=== PATIENT | female | born 1970 | race Caucasian/White ===

== ENCOUNTER 2017-04-21 10:21 | Inpatient (IN) | payer OTHER ==
[~2017-04-21] VITALS: Ht 154.9 cm; Wt 79.8 kg
[~2017-04-21 10:21] MED LIST: BUPR-267 PO; CHOL100027 PO; DONE10TA12 PO; FLUO20CA35 PO; SYMIN/8045 INH; TRAZ1TAB52 PO; USTE90IN IM; VITAMIN B SQ
[2017-04-21] MEDS ORDERED: POTA40IN PO (12:43)
[2017-04-21] MEDS ORDERED: ACET325T96 PO (12:44)
[2017-04-21] MEDS ORDERED: PRED20TA PO (12:44)
[2017-04-21] MEDS ORDERED: DICY10CA55 PO (12:45)
[2017-04-21 12:46] VITALS: BP 160/91; PULSE 71; TEMP 36.7; O2SAT 95
[2017-04-21 12:48] VITALS: BMI 33.2
[2017-04-21 13:06] VITALS: BP 157/91
[2017-04-21] MEDS ORDERED: ACETAMINOPHEN 325 MG TAB PO PRN (13:45)
[2017-04-21 14:00] VITALS: Ht 154.9 cm; Wt 79.8 kg
[2017-04-21] MEDS ORDERED: OPTIRAY 320 IV PRN (14:15)
[2017-04-21 14:19] LABS: BASO % 0.3 %; BASO ABS # 0.03 K/uL (0-0.2); EOS % 0.2 %; HEMATOCRIT 39.9 % (37-47); IG% 0.6 %; LYMPH % 9.3 %; LYMPH ABS # 1.01 K/uL (1.2-3.4); MEAN CELL VOLUME 87.1 fL (80-100); MEAN CORPUSCULAR HEMOGLOBIN 29.3 pg (25-34); MEAN PLATELET VOLUME 9.3 fL (7.4-10.4); MONO % 2.2 %; NEUT % 87.4 %; PLATELET COUNT 266 K/uL (130-400); RED BLOOD COUNT 4.58 M/uL (4.2-5.4); WHITE BLOOD COUNT 10.84 K/uL (4.8-10.8)
[2017-04-21 14:21] LABS: COMPLETE YES; MEAN CORPUSCULAR HGB CONC 33.6 g/dl (32-36)
[2017-04-21] MEDS: FLUOXETINE HCL 20 MG CAP PO SCH ×2 (14:31→20:39)
[2017-04-21 14:48] LABS: BUN/CREATININE RATIO 5.1 (10-20); CALCIUM 7.7 mg/dl (8.5-10.1); MAGNESIUM 1.5 mg/dl (1.8-2.4); POTASSIUM 3.6 mmol/L (3.5-5.1)
[2017-04-21 14:51] LABS: ALB/GLOB RATIO 0.9 (0.9-2)
[2017-04-21] MEDS ORDERED: NURSING VERBAL MED ORDER ONE ×2 (15:45→20:45)
[2017-04-21] MEDS ORDERED: MoRPHine SULFATE 4 MG/ML 1 ML CARP ONE (15:54)
[2017-04-21] MEDS: MAGNESIUM SULFATE 1GM / D5W 1 GM in PREMIXED IN D5W 100 ML IV SCH ×3 (16:06→18:18)
--- NOTE | 2017-04-21 17:09 | Gastrointestinal Consultation ---
Gastrointestinal Consultation Date of Consultation: Apr 21, 2017 Attending Physician: DR Jay Billings Consulting Physician: DR Aries Sahu Reason for Consultation: Crohns exacerbation, pancreatitis History of Present Illness Patient is a 46 year old female with CC of abd pain HPI Reviewed [facility] EMR and noted DR Hopkins most recent note 02/26/17. Pt with ileocolonic crohns since age 19. She has subtotal colectomy with ileostomy and rectal stump. 10/31/2015 Ileoscopy normal. Has been on Sterlara by Derm since 10/2016. Had exacerabation of abd pain, and diarhea 02/2017. Prednisone 20 mg take for couple weeks stopped secondary to side effects. Stelara was increased to 90 mg every 12 weeks. Recently developed abd pain--- CT 04/10/17 minimal enteritis of few SB loops in LLQ but no pancreatitis mentioned, fatty liver, GB distension but no stones seen. LLQ ostomy, small fat containing peristomal hernia. U/S abdomen 04/11/17 gallstones. Pt admitted to [facility] 04/15 with abdominal pain and lipase 3823. Triglycerides 422 on 04/16 TSH normal. She had hypokalemia, hypomagnesemia. Lipase normalized as of 04/18/17 but up to 377 today. Stool was heme positive. HIDA scan negative for obstruction or cholecystitis. Abd series negative. MRCP stone in GB otherwise unremarkable. CXR negative. Prednisone 40 mg daily started 04/19. EGD done showed mild erosive gastritis bx and mild erosive esophagitis bx. CT a/p here hepatomegaly, fatty liver, LLQ ostomy o/w normal. Pt states she has LUQ pain predominantly and diarrhea no mold changer course at [facility]. She states no vomiting but is nauseated. She is seeing fresh blood in the ostomy. Labs here CBC WBC 10.8, CMP ok except gluc 121, mg 1.5. Family History non contributory Social History Smoking Status: Former Smoker Allergies Coded Allergies: No Known Allergies (Unverified , 04/21/17) Current Medications Home Meds and Scripts Medications Dose Route/Sig Max Daily Dose Days Date Category Bentyl (Dicyclomine Hcl) 10 Mg Cap 1 Cap PO TID 30 04/21/17 Reported Tylenol (Acetaminophen) 325 Mg Tab 650 Mg PO Q6 PRN 04/21/17 Reported Prednisone 20 Mg Tab 40 Mg PO 04/21/17 Reported Potassium Chloride 40 Meq/100 Ml Inj 40 Meq PO Q3H 04/21/17 Reported Symbicort 80/4.5 Inhaler (Budesonide/Formoterol Fumarate) Aero 2 Puffs INH BID 01/18/17 Reported Vitamin D 1000 Unit (Cholecalciferol) 1,000 Unit Cap 6,000 Inter.unit PO DAILY 12/18/16 Reported [vitamin b12 inj.] 1 Syr SQ MONTHLY 12/18/16 Reported Desyrel (Trazodone Hcl) 150 Mg Tab 150 Mg PO DAILY 12/18/16 Reported Stelara (Ustekinumab) 90 Mg/Ml Inj 90 Mg IM [id number] 12/18/16 Reported Aricept (Donepezil Hydrochloride) 10 Mg Tab 1 Tab PO AM 30 02/20/16 Reported Prozac (Fluoxetine HCl) 20 Mg Cap 20 Mg PO TID 02/20/16 Reported Bupropion Hcl Er (Bupropion Hcl) 150 Mg Tab 1 Tab PO BID 12/14/13 Reported Review of Systems ROS 10 systems negative except as above. Physical Exam Date Time Temp Pulse Resp B/P (MAP) Pulse Ox O2 Delivery O2 Flow Rate FiO2 04/21/17 16:00 Room Air 04/21/17 14:00 Room Air 04/21/17 13:06 157/91 (113) 04/21/17 12:46 36.7 71 18 160/91 (114) 95 Room Air General Appearance: WD/WN, no apparent distress Eyes: normal inspection ENT: hearing grossly normal, TMs normal Respiratory/Chest: normal breath sounds, no respiratory distress Cardiovascular: no edema, no murmur Abdomen: normal bowel sounds, soft, no organomegaly, + pertinent finding (LLQ ileostomy with yellow stool and no blood, no guarding nor rebound) Extremities: normal range of motion, non-tender Neurologic/Psych: cloth carrier II-XII nml as tested, normal mood/affect, oriented x 3 Laboratory Results Last 24 Hours Test 04/21/17 13:55 White Blood Count 10.84 K/uL Red Blood Count 4.58 M/uL Hemoglobin 13.4 g/dL Hematocrit 39.9 % Mean Corpuscular Volume 87.1 fL Mean Corpuscular Hemoglobin 29.3 pg Mean Corpuscular Hemoglobin Concent 33.6 g/dl Platelet Count 266 K/uL Mean Platelet Volume 9.3 fL Neutrophils (%) (Auto) 87.4 % Lymphocytes (%) (Auto) 9.3 % Monocytes (%) (Auto) 2.2 % Eosinophils (%) (Auto) 0.2 % Basophils (%) (Auto) 0.3 % Neutrophils # (Auto) 9.48 K/uL Lymphocytes # (Auto) 1.01 K/uL Monocytes # (Auto) 0.24 K/uL Eosinophils # (Auto) 0.02 K/uL Basophils # (Auto) 0.03 K/uL RDW Standard Deviation 47.2 fL RDW Coefficient of Variation 14.8 % Immature Granulocyte % (Auto) 0.6 % Immature Granulocyte # (Auto) 0.06 K/uL Erythrocyte Sedimentation Rate 21 mm/hr Sodium Level 141 mmol/L Potassium Level 3.6 mmol/L Chloride Level 106 mmol/L Carbon Dioxide Level 27 mmol/L Anion Gap 8.0 mmol/L Blood Urea Nitrogen 5 mg/dl Creatinine 1.00 mg/dl Est Creatinine Clear Calc Drug Dose 65.8 ml/min Estimated GFR () 77.2 Estimated GFR (Non- 66.6 BUN/Creatinine Ratio 5.1 Random Glucose 121 mg/dl Calcium Level 7.7 mg/dl Magnesium Level 1.5 mg/dl Total Bilirubin 0.3 mg/dl Aspartate Amino Transf (AST/SGOT) 19 U/L Alanine Aminotransferase (ALT/SGPT) 34 U/L Alkaline Phosphatase 90 U/L Total Protein 6.9 gm/dl Albumin 3.2 gm/dl Globulin 3.7 gm/dl Albumin/Globulin Ratio 0.9 Lipase 316 U/L Impression Impression and Plan: Abdominal pain--no evidence of pancreatitis or active IBD on CT--await stool for Cdiff. If that is negative then do ileoscopy Crohns--eventual ileoscopy--on Stelara as an outpt. IV steroids pending cdiff and ileoscopyCl Bright blood in ostomy--check C diff and if neg then ileoscopy Diarrhea--workup as above, quatitate stool output Elevated lipase on admit at [facility]--no evidence of pancreatis on CT 04/[address] 04/21/17
--- NOTE | 2017-04-21 17:41 | DIAGNOSTIC IMAGING REPORT ---
CT SCAN OF THE ABDOMEN AND PELVIS WITH IV CONTRAST CLINICAL HISTORY: Generalized abdominal pain. Reported history of Crohn's disease and pancreatitis. COMPARISON STUDY: No priors. TECHNIQUE: Following the IV administration of 115 cc of Optiray 320, CT scan of the abdomen and pelvis is performed from the lung bases to the proximal femora. Images are reviewed in the axial, sagittal, and coronal planes. IV contrast was administered without complication. Automated dose control exposure was utilized. CT DOSE: 465.97 mGy.cm FINDINGS: Lung bases: The heart is normal in size and without pericardial effusion. Emphysematous change is suggested at the lung bases. Bibasilar scarring versus atelectasis is noted. There is no airspace consolidation or pleural effusion. There is a tiny hiatal hernia. Liver: The contrast-enhanced liver is enlarged, measuring 21 cm in length. The liver demonstrates diffusely diminished attenuation consistent with hepatic steatosis. There is no intrahepatic biliary ductal dilatation. The hepatic veins and portal veins are patent. Gallbladder: Unremarkable. Spleen: Normal in size and attenuation. Pancreas: Unremarkable. Adrenal glands: Unremarkable. Kidneys: The contrast enhanced kidneys demonstrate mild cortical atrophy and are without hydronephrosis. The kidneys enhance symmetrically. A 3 mm nonobstructing calculus is seen in the left lower pole. Abdominal vasculature: The abdominal aorta is normal in course and caliber noting mild atherosclerotic calcification. Bowel: There are postoperative changes from subtotal colectomy with left lower quadrant ileostomy. No bowel obstruction is seen. A rectal stump is seen in the pelvis. No thick walled or hyperemic bowel loops are identified. There is a small duodenal diverticulum. Peritoneum: There is no intraperitoneal free air or abdominal ascites. Lymphadenopathy: None. Pelvic viscera: The bladder, uterus, and adnexa are normal as visualized. The perianal soft tissues are normal as imaged. Skeletal structures: The Skeletal structures are osteopenic. Mild thoracolumbar scoliosis is observed. No lytic or blastic lesions are seen. IMPRESSION: 1. There are no acute infectious or inflammatory findings in the abdomen or pelvis. 2. There are postoperative changes from subtotal colectomy with left lower quadrant ileostomy. No bowel obstruction is seen. 3. Hepatomegaly and hepatic steatosis. 4. Nonobstructing left renal calculus. 5. Additional findings as above. Electronically signed by: Pelon Carcamo M.D. 04/21/2017 5:40 PM Dictated Date/Time: 04/21/2017 5:35 PM
[2017-04-21] MEDS ORDERED: ONDANSETRON INJ 2 MG/ML 2 ML VIAL IV PRN (18:15)
--- NOTE | 2017-04-21 18:47 | History and Physical ---
History & Physical Date & Time of Service: Apr 21, 2017 at 18:30 Chief Complaint: Crohns Disease, Pancreatitis Primary Care Physician: Jose Raul Allen M.D. History of Present Illness Source: patient The patient is a 46-year-old female who presented to [facility] emergency department on April 15, and was admitted to the hospital for treatment of pancreatitis with a lipase elevated to over 3200. Enzymes were followed to normalcy, but the patient continued to complain of abdominal discomfort. The question at that point became whether her pain was related to pancreatitis or her underlying Crohn's disease. She was transferred to [facility] today for further assessment with her tin roofer Dr. Lott. Upon arrival to [facility], the patient continues to report generalized abdominal discomfort. She reports this pain is different than how she originally arrived with pain at [facility], but is unsure if it's related to her underlying Crohn's disease. She does have a colostomy in left lower quadrant, which appeared to function normally, and she has no complaints related to it's functioning. She has generalized myalgias and arthralgias, and in general doesn 't feel well. She had multiple studies performed at [facility], including a CT done prior to admission there which was normal. She had an EGD performed by gastroenterology there, and had a HIDA scan which showed gallstones but no signs of active cholecystitis. She had initially been nothing by mouth there, but her diet having gradually increasing clear liquids, and she did not notice a change in her abdominal discomfort. Past Medical/Surgical History Medical Problems: (1) Anxiety disorder Status: Chronic (2) Crohns disease Status: Chronic (3) Depressive disorder Status: Chronic (4) Hypothyroidism Status: Chronic (5) Psoriasis Status: Chronic Surgical Problems: (1) History of carpal tunnel release Status: Resolved (2) History of ileostomy Status: Resolved (3) History of thyroidectomy Status: Resolved Family History Noncontributory Social History Smoking Status: Former Smoker Smokeless Tobacco Use: No Alcohol Use: none Drug Use: none Immunizations History of Influenza Vaccine: Unknown History of Tetanus Vaccine?: Unknown History of Pneumococcal: Unknown History of Hepatitis B Vaccine: Unknown Multi-Drug Resistant Organisms History of MDRO: No Allergies Coded Allergies: No Known Allergies (Unverified , 04/21/17) Home Medications Scheduled Budesonide/Formoterol Fumarate (Symbicort 80/4.5 Inhaler), 2 PUFFS INH BID Bupropion Hcl (Bupropion Hcl Er), 1 TAB PO BID Cholecalciferol (Vitamin D 1000 Unit), 6,000 INTER.UNIT PO DAILY Dicyclomine Hcl (Bentyl), 1 CAP PO TID Donepezil Hydrochloride (Aricept), 1 TAB PO am Fluoxetine (Prozac), 20 MG PO TID Potassium Chloride (Potassium Chloride), 40 MEQ PO Q3H Trazodone Hcl (Desyrel), 150 MG PO DAILY Ustekinumab (Stelara), 90 MG IM [id number] [vitamin b12 inj.], 1 SYR SQ MONTHLY Scheduled PRN Acetaminophen Tab (Tylenol), 650 MG PO Q6 PRN for Pain Miscellaneous Medications Prednisone (Prednisone), 40 MG PO Review of Systems The patient denies chest pain, palpitations, shortness of breath, cough, sore throat, fevers, chills, sweats, weight change, vomiting, blood in urine or stool , dysuria, urinary frequency or urgency, lightheadedness, dizziness, headache, memory loss, rash, abnormal bruising or bleeding, imbalance, focal weakness, numbness or tingling in arms or legs, night sweats, or allergy symptoms. The review of systems is otherwise negative other than for that already noted above, and at least 10 systems have been reviewed. Physical Exam Vital Signs Date Time Temp Pulse Resp B/P (MAP) Pulse Ox O2 Delivery O2 Flow Rate FiO2 04/21/17 16:00 Room Air 04/21/17 14:00 Room Air 04/21/17 13:06 157/91 (113) 04/21/17 12:46 36.7 71 18 160/91 (114) 95 Room Air The patient is awake, well-developed and adequately nourished, alert and oriented 3, normocephalic and atraumatic, lying in bed and in no acute distress. HEENT--PERRL, EOMI, mucous membranes and oropharynx dry. Neck--supple, no JVD or bruits, thyroid normal, trachea midline, no adenopathy. Heart--normal S1 and S2, no extra beats, no murmurs, rubs or gallops. Lungs--clear bilaterally with good air movement, no respiratory distress, no accessory muscle use. Abdomen--normal bowel sounds and soft, generalized vague tenderness , nondistended, no hernias or masses, no organomegaly. Extremities--no cyanosis, clubbing or edema. There are good distal pulses b/l. Dermatologic--normal skin turgor, normal color, warm and dry, no abnormal lymph nodes, no rash. Neurologic--cranial nerves II through XII grossly intact, motor and sensory examination normal. Rheumatologic--normal range of motion, nontender, muscles and joints. Psychiatric--normal affect. Diagnostics Laboratory Results Results Past 24 Hours Test 04/21/17 13:55 Range/Units White Blood Count 10.84 4.8-10.8 K/uL Red Blood Count 4.58 4.2-5.4 M/uL Hemoglobin 13.4 12.0-16.0 g/dL Hematocrit 39.9 37-47 % Mean Corpuscular Volume 87.1 80-100 fL Mean Corpuscular Hemoglobin 29.3 25-34 pg Mean Corpuscular Hemoglobin Concent 33.6 32-36 g/dl Platelet Count 266 130-400 K/uL Mean Platelet Volume 9.3 7.4-10.4 fL Neutrophils (%) (Auto) 87.4 % Lymphocytes (%) (Auto) 9.3 % Monocytes (%) (Auto) 2.2 % Eosinophils (%) (Auto) 0.2 % Basophils (%) (Auto) 0.3 % Neutrophils # (Auto) 9.48 1.4-6.5 K/uL Lymphocytes # (Auto) 1.01 1.2-3.4 K/uL Monocytes # (Auto) 0.24 0.11-0.59 K/uL Eosinophils # (Auto) 0.02 0-0.5 K/uL Basophils # (Auto) 0.03 0-0.2 K/uL RDW Standard Deviation 47.2 36.4-46.3 fL RDW Coefficient of Variation 14.8 11.5-14.5 % Immature Granulocyte % (Auto) 0.6 % Immature Granulocyte # (Auto) 0.06 0.00-0.02 K/uL Erythrocyte Sedimentation Rate 21 0-21 mm/hr Sodium Level 141 136-145 mmol/L Potassium Level 3.6 3.5-5.1 mmol/L Chloride Level 106 98-107 mmol/L Carbon Dioxide Level 27 21-32 mmol/L Anion Gap 8.0 3-11 mmol/L Blood Urea Nitrogen 5 7-18 mg/dl Creatinine 1.00 0.60-1.20 mg/dl Est Creatinine Clear Calc Drug Dose 65.8 ml/min Estimated GFR () 77.2 Estimated GFR (Non- 66.6 BUN/Creatinine Ratio 5.1 10-20 Random Glucose 121 70-99 mg/dl Calcium Level 7.7 8.5-10.1 mg/dl Magnesium Level 1.5 1.8-2.4 mg/dl Total Bilirubin 0.3 0.2-1 mg/dl Aspartate Amino Transf (AST/SGOT) 19 15-37 U/L Alanine Aminotransferase (ALT/SGPT) 34 12-78 U/L Alkaline Phosphatase 90 45-117 U/L Total Protein 6.9 6.4-8.2 gm/dl Albumin 3.2 3.4-5.0 gm/dl Globulin 3.7 2.5-4.0 gm/dl Albumin/Globulin Ratio 0.9 0.9-2 Lipase 316 73-393 U/L Microbiology Results 04/21/17 C.difficile Toxin B Gene (PCR) - Final, Complete No C. difficile toxin B gene detected Impression Assessment and Plan Persistent abdominal pain/recent treatment for pancreatitis at [facility]/history of Crohn's disease--the patient is admitted to medical surgical floor. The last CT she had done was April 11. I therefore ordered a repeat CT of the abdomen and pelvis here with IV and oral contrast, which did not show any active pathology. Dr. Sahu from gastroenterology, has seen her menses For Dr. Lott today. We'll see if Dr. Lott is any further suggestions. Anxiety/depression-- continue trazodone, fluoxetine, donepezil, bupropion. Asthma--continue Symbicort. Level of Care Med/Surg Advanced Directives Existing Advance Directive: No Existing Living Will: No Existing Power of Licensed Mortgage Loan Officer: No Resuscitation Status FULL RESUSCITATION VTE Prophylaxis VTE Risk Assessment Done? Y/N: Yes Risk Level: Moderate Given or contraindicated: Contraindicated
[2017-04-21] MEDS: BUDESONIDE/FORMOTEROL FUMARATE 80/4.5 60 PUFFS/INHALER INH SCH (20:37)
[2017-04-21] MEDS: DONEPEZIL HCL 10 MG TAB PO SCH (20:38)
[2017-04-21] MEDS: DICYCLOMINE HCL 10 MG CAP PO SCH (20:38)
[2017-04-21] MEDS: BuPROPion SR 150 MG TABCR PO SCH (20:39)
[2017-04-21] MEDS: METHYLPREDNISOLONE 60 MG in SYRINGE 0 ML IV SCH (21:10)
[2017-04-21] MEDS: MoRPHine SULFATE 4 MG/ML 1 ML CARP IV PRN (22:31)
[2017-04-21] MEDS: TRAZODONE HCL 50 MG TAB PO SCH (22:32)
[2017-04-21 23:16] VITALS: BP 143/85; PULSE 68; TEMP 36.6; O2SAT 94
[2017-04-22] MEDS: MoRPHine SULFATE 4 MG/ML 1 ML CARP IV PRN ×6 (01:45→21:36)
[2017-04-22 05:40] LABS: COMPLETE YES; HEMATOCRIT 37.3 % (37-47); IG% 0.3 %; LYMPH % 9.6 %; LYMPH ABS # 0.91 K/uL (1.2-3.4); MEAN CELL VOLUME 85.4 fL (80-100); MEAN CORPUSCULAR HEMOGLOBIN 29.3 pg (25-34); MEAN CORPUSCULAR HGB CONC 34.3 g/dl (32-36); NEUT % 89.1 %; PLATELET COUNT 266 K/uL (130-400); RED BLOOD COUNT 4.37 M/uL (4.2-5.4); WHITE BLOOD COUNT 9.44 K/uL (4.8-10.8)
[2017-04-22 05:53] LABS: PARTIAL THROMBOPLASTIN RATIO 0.9; PROTHROMBIN TIME (PATIENT) 11.1 SECONDS (9.0-12.0)
[2017-04-22 06:16] LABS: ALT/SGPT 32 U/L (12-78); AST/SGOT 15 U/L (15-37); BLOOD UREA NITROGEN 5 mg/dl (7-18); BUN/CREATININE RATIO 5.1 (10-20); CALCIUM 7.4 mg/dl (8.5-10.1); CARBON DIOXIDE 32 mmol/L (21-32); CHLORIDE 103 mmol/L (98-107); GLUCOSE 123 mg/dl (70-99); MAGNESIUM 2.2 mg/dl (1.8-2.4); POTASSIUM 3.5 mmol/L (3.5-5.1); SODIUM 141 mmol/L (136-145)
[2017-04-22 06:18] LABS: ALB/GLOB RATIO 0.8 (0.9-2); ALKALINE PHOSPHATASE 83 U/L (45-117)
--- NOTE | 2017-04-22 07:08 | DIAGNOSTIC IMAGING REPORT ---
LEFT LOWER EXTREMITY VENOUS DOPPLER CLINICAL HISTORY: Left lower extremity pain. COMPARISON STUDY: No previous studies for comparison. TECHNIQUE: Sonography of the deep venous system of the left lower extremity was performed. Compression and augmentation were evaluated. FINDINGS: The left common femoral, superficial femoral and popliteal veins were compressible. Augmentation was normal. Flow was shown within the deep calf vessels. IMPRESSION: No evidence of deep venous thrombus within the left lower extremity. Electronically signed by: Tone Siegel M.D. 04/22/2017 7:07 AM Dictated Date/Time: 04/22/2017 7:07 AM
[2017-04-22 07:23] VITALS: BP 121/77; PULSE 80; TEMP 36.6; O2SAT 92
[2017-04-22] MEDS: CHOLECALCIFEROL 1000 INTER.UNIT TAB PO SCH (07:44)
[2017-04-22] MEDS: BuPROPion SR 150 MG TABCR PO SCH ×2 (07:44→21:25)
[2017-04-22] MEDS: FLUOXETINE HCL 20 MG CAP PO SCH ×3 (07:44→21:26)
[2017-04-22] MEDS: BUDESONIDE/FORMOTEROL FUMARATE 80/4.5 60 PUFFS/INHALER INH SCH ×2 (07:44→21:24)
[2017-04-22] MEDS: DICYCLOMINE HCL 10 MG CAP PO SCH ×3 (07:44→21:25)
[2017-04-22] MEDS: METHYLPREDNISOLONE 60 MG in SYRINGE 0 ML IV SCH (08:14)
--- NOTE | 2017-04-22 09:23 | Hospitalist Progress Note ---
Hospitalist Progress Note Date of Service Apr 22, 2017. (Krystle Guerrero PA-C) Subjective Pt evaluation today including: conversation w/ patient, physical exam, chart review, lab review, review of studies Pain: Epigastric abdominal PO Intake: NPO Voiding: no voiding problems The patient was seen and examined this morning. Pt reports doing ok, she is slightly better than yesterday but still is having epigastric abdominal pain, and notes that it radiates to her back/around the left side. She has been NPO since midnight in anticipation of ilioscopy today by Dr. Lott. She denies fevers, chills, sweats, chest pain, sob, n/v/d/c. Ostomy outs have been yellow/ bile colored. She denies any blood streaking in stools or dark tarry outs. Additional Comments: ROS: 6 point ROS reviewed and otherwise negative unless noted in HPI. (Krystle Guerrero PA-C) Objective Vital Signs Date Time Temp Pulse Resp B/P (MAP) Pulse Ox O2 Delivery O2 Flow Rate FiO2 04/22/17 07:23 36.6 80 16 121/77 (92) 92 Room Air 04/22/17 00:00 Room Air 04/21/17 23:16 36.6 68 18 143/85 (104) 94 Room Air 04/21/17 16:00 Room Air 04/21/17 14:00 Room Air 04/21/17 13:06 157/91 (113) 04/21/17 12:46 36.7 71 18 160/91 (114) 95 Room Air (Krystle Guerrero PA-C) Physical Exam General Appearance: WD/WN, no apparent distress, + obese Eyes: PERRL, EOMI ENT: hearing grossly normal, pharynx normal Neck: supple, no JVD Respiratory/Chest: lungs clear, no respiratory distress, no accessory muscle use Cardiovascular: regular rate, rhythm, no murmur Abdomen: normal bowel sounds, soft, no organomegaly, + pertinent finding ( tender to palpation in the epigastric region, Ostomy in LLQ with yellow/bile outs) Extremities: non-tender, no pedal edema, no calf tenderness Neurologic/Psychiatric: no motor/sensory deficits, alert, oriented x 3 Skin: normal color, warm/dry (Krystle Guerrero PA-C) Laboratory Results Last 24 Hours Test 04/21/17 13:55 04/22/17 05:28 White Blood Count 10.84 K/uL 9.44 K/uL Red Blood Count 4.58 M/uL 4.37 M/uL Hemoglobin 13.4 g/dL 12.8 g/dL Hematocrit 39.9 % 37.3 % Mean Corpuscular Volume 87.1 fL 85.4 fL Mean Corpuscular Hemoglobin 29.3 pg 29.3 pg Mean Corpuscular Hemoglobin Concent 33.6 g/dl 34.3 g/dl Platelet Count 266 K/uL 266 K/uL Mean Platelet Volume 9.3 fL 9.0 fL Neutrophils (%) (Auto) 87.4 % 89.1 % Lymphocytes (%) (Auto) 9.3 % 9.6 % Monocytes (%) (Auto) 2.2 % 1.0 % Eosinophils (%) (Auto) 0.2 % 0.0 % Basophils (%) (Auto) 0.3 % 0.0 % Neutrophils # (Auto) 9.48 K/uL 8.41 K/uL Lymphocytes # (Auto) 1.01 K/uL 0.91 K/uL Monocytes # (Auto) 0.24 K/uL 0.09 K/uL Eosinophils # (Auto) 0.02 K/uL 0.00 K/uL Basophils # (Auto) 0.03 K/uL 0.00 K/uL RDW Standard Deviation 47.2 fL 45.2 fL RDW Coefficient of Variation 14.8 % 14.5 % Immature Granulocyte % (Auto) 0.6 % 0.3 % Immature Granulocyte # (Auto) 0.06 K/uL 0.03 K/uL Erythrocyte Sedimentation Rate 21 mm/hr Sodium Level 141 mmol/L 141 mmol/L Potassium Level 3.6 mmol/L 3.5 mmol/L Chloride Level 106 mmol/L 103 mmol/L Carbon Dioxide Level 27 mmol/L 32 mmol/L Anion Gap 8.0 mmol/L 6.0 mmol/L Blood Urea Nitrogen 5 mg/dl 5 mg/dl Creatinine 1.00 mg/dl 1.00 mg/dl Est Creatinine Clear Calc Drug Dose 65.8 ml/min 65.8 ml/min Estimated GFR () 77.2 77.2 Estimated GFR (Non- 66.6 66.6 BUN/Creatinine Ratio 5.1 5.1 Random Glucose 121 mg/dl 123 mg/dl Calcium Level 7.7 mg/dl 7.4 mg/dl Magnesium Level 1.5 mg/dl 2.2 mg/dl Total Bilirubin 0.3 mg/dl 0.3 mg/dl Aspartate Amino Transf (AST/SGOT) 19 U/L 15 U/L Alanine Aminotransferase (ALT/SGPT) 34 U/L 32 U/L Alkaline Phosphatase 90 U/L 83 U/L Total Protein 6.9 gm/dl 6.3 gm/dl Albumin 3.2 gm/dl 2.8 gm/dl Globulin 3.7 gm/dl 3.5 gm/dl Albumin/Globulin Ratio 0.9 0.8 Lipase 316 U/L 377 U/L Prothrombin Time 11.1 SECONDS Prothromb Time International Ratio 1.0 Activated Partial Thromboplast Time 24.3 SECONDS Partial Thromboplastin Ratio 0.9 Direct Bilirubin < 0.1 mg/dl (Krystle Guerrero PA-C) Assessment and Plan Persistent abdominal pain/recent treatment for pancreatitis at [facility]/history of Crohn's disease- - CT abd/pelvis repeated here: Last was done on 03/11/17 IMPRESSION: 1. There are no acute infectious or inflammatory findings in the abdomen or pelvis. 2. There are postoperative changes from subtotal colectomy with left lower quadrant ileostomy. No bowel obstruction is seen. 3. Hepatomegaly and hepatic steatosis. 4. Nonobstructing left renal calculus. - GI on board - pt scheduled for ilioscopy today by Dr. Lott. Will allow her to have clears after procedure and see how she does. - Pain control with morphin 2-4 mg Q4H and toradol. Avoid oral narcotics with hx of Chrons - Negative c. diff and if negative then plan on ileoscopy - Follow lipase Crohns Disease - Uses Stellara 90 U as oupt, last dose was beginning of March Anxiety/depression - continue trazodone, fluoxetine, donepezil, bupropion. Asthma -continue Symbicort. DVT ppx: teds, scds, CODE STATUS: FULL CODE Disposition: From home, discharge likely within 1-2 days. (Krystle Guerrero PA-C) ANKITA Physician Supervision Note: I interviewed and examined the patient. Discussed with Krystle Guerrero PAC and agree with findings and plan as documented in the note. Any exceptions or clarifications are listed here: None Patient still was some abdominal symptoms, did have EGD today, mild elevation of lipase, we'll of unclear as overnight discussed with GI for further recommendations. Vital signs stable Abdomen soft but tender especially in the epigastrium Cardiac is regular lungs are clear Symptom control for abdominal pain, await final EGD report continue PPI Bandar Anne (Bandar Anne M.D.)
[2017-04-22] MEDS ORDERED: MIDAZOLAM HCL 1 MG/ML 2ML VIAL ONE (15:07)
[2017-04-22] MEDS ORDERED: LIDOCAINE HCL 2% 2 ML VIAL (20MG/ML) ONE (15:07)
[2017-04-22] MEDS ORDERED: PROPOFOL IV EMULSION 10 MG/ML 20 ML VIAL IV ONE (15:07)
--- NOTE | 2017-04-22 15:08 | Endo History and Physical ---
History & Physical Date of Service: Apr 22, 2017. Chief Complaint: abd pain, Crohn's Referring Physician: Dr Sahu History of Present Illness For ileoscopy Past Medical History Anxiety, Thyroid Disease, Depression Past Surgical History Hx Abdominal Surgery: Yes (ileostomy x 2) Hx Post-Op Nausea and Vomiting: No Hx Cancer Surgery: No Hx Thoracic Surgery: No Hx Orthopedic: No Hx Urinary Tract Surgery: No Social History Smoking Status: Unknown if Ever Smoked Smokeless Tobacco Use: No Hx Substance Use: No Hx Alcohol Use: No Allergies Coded Allergies: No Known Allergies (Unverified , 04/22/17) Current Medications Reported Home Medications Medications Dose Route/Sig Max Daily Dose Days Date Category Bentyl (Dicyclomine Hcl) 10 Mg Cap 1 Cap PO TID 30 04/21/17 Reported Tylenol (Acetaminophen) 325 Mg Tab 650 Mg PO Q6 PRN 04/21/17 Reported Prednisone 20 Mg Tab 40 Mg PO 04/21/17 Reported Potassium Chloride 40 Meq/100 Ml Inj 40 Meq PO Q3H 04/21/17 Reported Symbicort 80/4.5 Inhaler (Budesonide/Formoterol Fumarate) Aero 2 Puffs INH BID 01/18/17 Reported Vitamin D 1000 Unit (Cholecalciferol) 1,000 Unit Cap 6,000 Inter.unit PO DAILY 12/18/16 Reported [vitamin b12 inj.] 1 Syr SQ MONTHLY 12/18/16 Reported Desyrel (Trazodone Hcl) 150 Mg Tab 150 Mg PO DAILY 12/18/16 Reported Stelara (Ustekinumab) 90 Mg/Ml Inj 90 Mg IM [id number] 12/18/16 Reported Aricept (Donepezil Hydrochloride) 10 Mg Tab 1 Tab PO AM 30 02/20/16 Reported Prozac (Fluoxetine HCl) 20 Mg Cap 20 Mg PO TID 02/20/16 Reported Bupropion Hcl Er (Bupropion Hcl) 150 Mg Tab 1 Tab PO BID 12/14/13 Reported Vital Signs Weight (Kilograms): 79.800 Height (Feet): 5 Height (Inches): 1.00 Date Time Temp Pulse Resp B/P (MAP) Pulse Ox O2 Delivery O2 Flow Rate FiO2 04/22/17 14:49 36.8 68 18 128/81 (97) 94 Room Air 04/22/17 08:00 Room Air 04/22/17 07:23 36.6 80 16 121/77 (92) 92 Room Air 04/22/17 00:00 Room Air 04/21/17 23:16 36.6 68 18 143/85 (104) 94 Room Air 04/21/17 16:00 Room Air Physical Exam General Appearance: + obese Respiratory/Chest: Respiratory effort: no dyspnea Cardiovascular: Heart Auscultation: RRR Abdomen: Bowel Sounds: pertinent finding (Ileostomy) Assessment and Plan abd pain for ileoscopy
--- NOTE | 2017-04-22 15:22 | Discharge Instructions ---
Endoscopy Patient Instructions Date / Procedure(s) Performed Apr 22, 2017. Other (ileoscopy) Allergy Information Coded Allergies: No Known Allergies (Unverified , 04/22/17) Discharge Date / Findings Apr 22, 2017. Normal ileoscopy to 30 cm Medication Instructions Restart Stopped Medication(s): resume meds Current Inpatient Medications Medications (Trade) Dose Ordered Sig/Sd Route Start Time Stop Time Status Last Admin Dose Admin Acetaminophen (Tylenol Tab) 650 mg Q6 PRN PO 04/21/17 13:45 05/21/17 13:44 Budesonide/ Formoterol Fumarate (Symbicort 80/ 4.5 Inh) 2 puffs BID INH 04/21/17 21:00 05/21/17 20:59 04/21/17 20:37 2 PUFFS Bupropion HCl (Wellbutrin-Sr Tab) 150 mg BID PO 04/21/17 21:00 05/21/17 20:59 04/21/17 20:39 150 MG Fluoxetine HCl (Prozac Cap) 20 mg TID PO 04/21/17 14:00 05/21/17 13:59 04/21/17 20:39 20 MG Ioversol (Optiray 320) 125 ml UD PRN IV 04/21/17 14:15 04/25/17 14:14 Morphine Sulfate (MoRPHine SULFATE INJ) 2 mg Q2H PRN IV 04/21/17 16:15 05/05/17 16:14 Morphine Sulfate (MoRPHine SULFATE INJ) 4 mg Q2H PRN IV 04/21/17 16:15 05/05/17 16:14 04/22/17 13:16 4 MG Ondansetron HCl (Zofran Inj) 4 mg Q6H PRN IV 04/21/17 18:15 05/21/17 18:14 04/21/17 18:22 4 MG Ketorolac Tromethamine (Toradol Inj) 30 mg Q6H PRN IV 04/21/17 18:15 04/26/17 18:14 Cholecalciferol (Vitamin D Tab) 6,000 inter.unit DAILY PO 04/22/17 09:00 05/22/17 08:59 Dicyclomine HCl (Bentyl Cap) 10 mg TID PO 04/21/17 21:00 05/21/17 20:59 7/9/17 20:38 10 MG Donepezil HCl (Aricept Tab) 10 mg HS PO 04/21/17 21:00 05/21/17 20:59 04/21/17 20:38 10 MG Trazodone HCl (Desyrel Tab) 150 mg HS PO 04/21/17 21:00 05/21/17 20:59 04/21/17 22:32 150 MG Methylprednisolone Sodium Succinate 60 mg/Syringe 0.96 ml @ 1.5 mls/min DAILY IV 04/21/17 21:00 05/21/17 20:59 04/22/17 08:14 1.5 MLS/MIN Provider Instructions Activity Restrictions - No exercising or heavy lifting for 24 hours. - Do not drink alcohol the day of the procedure. - Do not drive a car or operate machinery until the day after the procedure. - Do not make any important decisions or sign important papers in 24 hours after the procedure. Following Day: - Return to full activity which may include returning to work/school. Diet Start your diet with liquids and light foods (jello, soup, juice, toast). Then eat your usual diet if not nauseated. Treatment For Common After Affects For mild abdominal pain, bloating, or excessive gas: - Rest - Eat lightly - Lie on right side Follow-Up Information Follow-up with as scheduled Anesthesia Information What You Should Know You have had a procedure that required some medicine to reduce anxiety and discomfort. This treatment is called moderate sedation. After receiving the treatment, you may be sleepy, but you will be able to breathe on your own. The effects of the treatment may last for several hours. Follow these instructions along with Activity/Diet recommendations noted above: * Do NOT do anything where dizziness or clumsiness would be dangerous. * Rest quietly at home today, then you can be up and about tomorrow. * Have a responsible person stay with you the rest of today. * You may have had an I.V. today. If so, you may take the dressing off later today. Recommendations Call your doctor if: * Trouble breathing * Continuous vomiting for more than 24 hours * Temperature above 101 degrees * Severe abdominal pain or bloating * Pain not relieved by pain medicine ordered * There is increased drainage or redness from any incision * A large amount of rectal bleeding greater than 2-3 tablespoons. (If you had a polyp/s removed or have hemorrhoids, a small amount of blood - from the rectum is to be expected.) * You have any unanswered questions or concerns. IN THE EVENT OF A SERIOUS EMERGENCY, GO TO THE NEAREST EMERGENCY ROOM Your discharge instructions were prepared by provider Percy Lott. Patient Instructions Signature Page Yu Isidro Patient (or Guardian) Signature/Date: I have read and understand the instructions given to me by my caregivers. Caregiver/RN/Doctor Signature/Date: The above-named patient and/or guardian has received patient instructions on this date. + Original Patient Signature Page (only) stays with chart. Please make copy for patient.
--- NOTE | 2017-04-22 15:30 | GI REPORT ---
Procedure Date: 04/22/2017 3:09 PM Procedure: Colonoscopy Indications: Generalized abdominal pain Medicines: Midazolam 2 mg IV, Propofol total dose 70 mg IV, Lidocaine 40 mg IV Complications: No immediate complications. Estimated Blood Loss: Estimated blood loss: none. Procedure: Pre-Anesthesia Assessment: - Prior to the procedure, a History and Physical was performed, and patient medications, allergies and sensitivities were reviewed. The patient's tolerance of previous anesthesia was reviewed. - The risks and benefits of the procedure and the sedation options and risks were discussed with the patient. All questions were answered and informed consent was obtained. After I obtained informed consent, the scope was passed under direct vision. Throughout the procedure, the patient's blood pressure, pulse, and oxygen saturations were monitored continuously. The scope was introduced through the ileostomy and advanced to the surgical stoma. The colonoscopy was performed without difficulty. The patient tolerated the procedure well. The quality of the bowel preparation was good. Findings: The osbaldo-terminal ileum appeared normal to 30 cm. Impression: - The examined portion of the ileum was normal. - No specimens collected. Recommendation: - Return patient to [facility] for [facility] care. - Perform an upper GI endoscopy tomorrow. Percy Lott M.D. Percy Lott MD 04/22/2017 3:29:39 PM This report has been signed electronically. Note Initiated On: 04/22/2017 3:09 PM I attest to the content of the Intraoperative Record and orders documented therein, exceptions below
--- NOTE | 2017-04-22 15:54 | Anesthesiology Progress Note ---
Anesthesia Post Op Note Date & Time Apr 22, 2017 at 15:53 Vital Signs Pain Intensity: 0 Vital Signs Past 12 Hours Date Time Temp Pulse Resp B/P (MAP) Pulse Ox O2 Delivery O2 Flow Rate FiO2 04/22/17 15:41 71 20 122/77 (92) 97 Room Air 04/22/17 15:25 71 18 117/72 (87) 94 Room Air 04/22/17 14:49 36.8 68 18 128/81 (97) 94 Room Air 04/22/17 08:00 Room Air 04/22/17 07:23 36.6 80 16 121/77 (92) 92 Room Air Notes Mental Status: alert / awake / arousable, participated in evaluation Pt Amnestic to Procedure: Yes Nausea / Vomiting: adequately controlled Pain: adequately controlled Airway Patency, RR, SpO2: stable & adequate BP & HR: stable & adequate Hydration State: stable & adequate Anesthetic Complications: no major complications apparent
[2017-04-22 16:00] VITALS: O2SAT 94
[2017-04-22 16:14] VITALS: BP 136/80; PULSE 72; TEMP 36.6; O2SAT 94
--- NOTE | 2017-04-22 17:24 | Gastroenterology Progress Note ---
Progress Note Date of Service: Apr 22, 2017 Subjective Pt evaluation today including: conversation w/ patient, chart review Medications Current Inpatient Medications Medications (Trade) Dose Ordered Sig/Sd Route Start Time Stop Time Status Last Admin Dose Admin Acetaminophen (Tylenol Tab) 650 mg Q6 PRN PO 04/21/17 13:45 05/21/17 13:44 Budesonide/ Formoterol Fumarate (Symbicort 80/ 4.5 Inh) 2 puffs BID INH 04/21/17 21:00 05/21/17 20:59 04/21/17 20:37 2 PUFFS Bupropion HCl (Wellbutrin-Sr Tab) 150 mg BID PO 04/21/17 21:00 05/21/17 20:59 04/21/17 20:39 150 MG Fluoxetine HCl (Prozac Cap) 20 mg TID PO 04/21/17 14:00 05/21/17 13:59 04/21/17 20:39 20 MG Ioversol (Optiray 320) 125 ml UD PRN IV 04/21/17 14:15 04/25/17 14:14 Morphine Sulfate (MoRPHine SULFATE INJ) 2 mg Q2H PRN IV 04/21/17 16:15 05/05/17 16:14 Morphine Sulfate (MoRPHine SULFATE INJ) 4 mg Q2H PRN IV 04/21/17 16:15 05/05/17 16:14 04/22/17 13:16 4 MG Ondansetron HCl (Zofran Inj) 4 mg Q6H PRN IV 04/21/17 18:15 05/21/17 18:14 04/21/17 18:22 4 MG Ketorolac Tromethamine (Toradol Inj) 30 mg Q6H PRN IV 04/21/17 18:15 04/26/17 18:14 Cholecalciferol (Vitamin D Tab) 6,000 inter.unit DAILY PO 04/22/17 09:00 05/22/17 08:59 Dicyclomine HCl (Bentyl Cap) 10 mg TID PO 04/21/17 21:00 05/21/17 20:59 04/21/17 20:38 10 MG Donepezil HCl (Aricept Tab) 10 mg HS PO 04/21/17 21:00 05/21/17 20:59 04/21/17 20:38 10 MG Trazodone HCl (Desyrel Tab) 150 mg HS PO 04/21/17 21:00 05/21/17 20:59 04/21/17 22:32 150 MG Pantoprazole Sodium 40 mg/ Syringe 10 ml @ 5 mls/min DAILY@09,21 IV 04/22/17 21:00 05/22/17 20:59 Objective Vital Signs Date Time Temp Pulse Resp B/P (MAP) Pulse Ox O2 Delivery O2 Flow Rate FiO2 04/22/17 16:14 36.6 72 18 136/80 (98) 94 Room Air 04/22/17 16:00 94 Room Air 04/22/17 15:41 71 20 122/77 (92) 97 Room Air 04/22/17 15:25 71 18 117/72 (87) 94 Room Air 04/22/17 14:49 36.8 68 18 128/81 (97) 94 Room Air 04/22/17 08:00 Room Air 04/22/17 07:23 36.6 80 16 121/77 (92) 92 Room Air 04/22/17 00:00 Room Air 04/21/17 23:16 36.6 68 18 143/85 (104) 94 Room Air Laboratory Results Last 24 Hours Test 04/22/17 05:28 White Blood Count 9.44 K/uL Red Blood Count 4.37 M/uL Hemoglobin 12.8 g/dL Hematocrit 37.3 % Mean Corpuscular Volume 85.4 fL Mean Corpuscular Hemoglobin 29.3 pg Mean Corpuscular Hemoglobin Concent 34.3 g/dl Platelet Count 266 K/uL Mean Platelet Volume 9.0 fL Neutrophils (%) (Auto) 89.1 % Lymphocytes (%) (Auto) 9.6 % Monocytes (%) (Auto) 1.0 % Eosinophils (%) (Auto) 0.0 % Basophils (%) (Auto) 0.0 % Neutrophils # (Auto) 8.41 K/uL Lymphocytes # (Auto) 0.91 K/uL Monocytes # (Auto) 0.09 K/uL Eosinophils # (Auto) 0.00 K/uL Basophils # (Auto) 0.00 K/uL RDW Standard Deviation 45.2 fL RDW Coefficient of Variation 14.5 % Immature Granulocyte % (Auto) 0.3 % Immature Granulocyte # (Auto) 0.03 K/uL Prothrombin Time 11.1 SECONDS Prothromb Time International Ratio 1.0 Activated Partial Thromboplast Time 24.3 SECONDS Partial Thromboplastin Ratio 0.9 Sodium Level 141 mmol/L Potassium Level 3.5 mmol/L Chloride Level 103 mmol/L Carbon Dioxide Level 32 mmol/L Anion Gap 6.0 mmol/L Blood Urea Nitrogen 5 mg/dl Creatinine 1.00 mg/dl Est Creatinine Clear Calc Drug Dose 65.8 ml/min Estimated GFR () 77.2 Estimated GFR (Non- 66.6 BUN/Creatinine Ratio 5.1 Random Glucose 123 mg/dl Calcium Level 7.4 mg/dl Magnesium Level 2.2 mg/dl Total Bilirubin 0.3 mg/dl Direct Bilirubin < 0.1 mg/dl Aspartate Amino Transf (AST/SGOT) 15 U/L Alanine Aminotransferase (ALT/SGPT) 32 U/L Alkaline Phosphatase 83 U/L Total Protein 6.3 gm/dl Albumin 2.8 gm/dl Globulin 3.5 gm/dl Albumin/Globulin Ratio 0.8 Lipase 377 U/L Assessment and Plan Ileoscopy to 30 cm is normal. No sign of active Crohn's disease. Steroids stopped. Will discuss with Dr. Luna tomorrow to consider EUS+/- ERCP given gallstone and chemical evidence of pancreatitis.
[2017-04-22 19:34] VITALS: BP 130/79; PULSE 74; TEMP 36.1; O2SAT 95
[2017-04-22] MEDS: DONEPEZIL HCL 10 MG TAB PO SCH (21:25)
[2017-04-22] MEDS: TRAZODONE HCL 50 MG TAB PO SCH (21:26)
[2017-04-22] MEDS: PANTOprazole INJ 40 MG in SYRINGE 0 ML IV SCH (21:36)
[2017-04-22 23:24] VITALS: BP 125/77; PULSE 74; TEMP 36.7; O2SAT 96
[2017-04-23] MEDS: MoRPHine SULFATE 4 MG/ML 1 ML CARP IV PRN ×2 (03:25→06:04)
[2017-04-23 06:02] LABS: BASO % 0.1 %; BASO ABS # 0.01 K/uL (0-0.2); COMPLETE YES; EOS % 0.2 %; HEMATOCRIT 38.3 % (37-47); IG% 0.3 %; LYMPH % 27.8 %; LYMPH ABS # 2.68 K/uL (1.2-3.4); MEAN CELL VOLUME 87.6 fL (80-100); MEAN CORPUSCULAR HEMOGLOBIN 28.1 pg (25-34); MEAN CORPUSCULAR HGB CONC 32.1 g/dl (32-36); MEAN PLATELET VOLUME 8.9 fL (7.4-10.4); MONO % 5.9 %; NEUT % 65.7 %; PLATELET COUNT 265 K/uL (130-400); RED BLOOD COUNT 4.37 M/uL (4.2-5.4); WHITE BLOOD COUNT 9.64 K/uL (4.8-10.8)
[2017-04-23 06:18] LABS: INR 1.1 (0.9-1.1); PARTIAL THROMBOPLASTIN RATIO 0.9; PROTHROMBIN TIME (PATIENT) 11.7 SECONDS (9.0-12.0)
[2017-04-23 06:45] LABS: ALKALINE PHOSPHATASE 73 U/L (45-117); ALT/SGPT 30 U/L (12-78); AST/SGOT 14 U/L (15-37); BLOOD UREA NITROGEN 11 mg/dl (7-18); BUN/CREATININE RATIO 9.8 (10-20); CALCIUM 7.9 mg/dl (8.5-10.1); CARBON DIOXIDE 32 mmol/L (21-32); CHLORIDE 102 mmol/L (98-107); GLUCOSE 78 mg/dl (70-99); MAGNESIUM 2.2 mg/dl (1.8-2.4); SODIUM 140 mmol/L (136-145)
[2017-04-23 07:40] VITALS: BP 115/76; PULSE 76; TEMP 36.4; O2SAT 92
[2017-04-23] MEDS: POTASSIUM CHLR 10 MEQ / WTR 10 MEQ in PREMIXED WATER 100 ML IV SCH ×3 (08:16→10:35)
[2017-04-23] MEDS: BUDESONIDE/FORMOTEROL FUMARATE 80/4.5 60 PUFFS/INHALER INH SCH ×2 (08:16→21:04)
[2017-04-23] MEDS: PANTOprazole INJ 40 MG in SYRINGE 0 ML IV SCH ×2 (08:17→21:03)
[2017-04-23] MEDS: POTASSIUM CHLORIDE 20 MEQ TABCR PO SCH ×2 (08:17→21:05)
[2017-04-23] MEDS: FLUOXETINE HCL 20 MG CAP PO SCH ×3 (08:18→21:06)
[2017-04-23] MEDS: CHOLECALCIFEROL 1000 INTER.UNIT TAB PO SCH (08:18)
[2017-04-23] MEDS: BuPROPion SR 150 MG TABCR PO SCH ×2 (08:19→21:04)
[2017-04-23] MEDS: DICYCLOMINE HCL 10 MG CAP PO SCH ×3 (08:19→21:05)
--- NOTE | 2017-04-23 08:59 | Hospitalist Progress Note ---
Hospitalist Progress Note Date of Service Apr 23, 2017. (Krystle Guerrero PA-C) Subjective Pt evaluation today including: conversation w/ patient, physical exam, chart review, lab review, review of studies Pain: Epigastric abdominal pain PO Intake: Clears Voiding: no voiding problems The patient was seen and examined this morning. Pt reports her abdominal pain is about the same today compared to yesterday. She admits to some nausea, but has not required antiemetics. She is tolerating a clear liquid diet without much difficulty. She denies fevers sweats or chills. She has been urinating without difficulty. Colostomy has liquid outs currently. Additional Comments: ROS: 6 point ROS reviewed and otherwise negative (Krystle Guerrero PA-C) Objective Vital Signs Date Time Temp Pulse Resp B/P (MAP) Pulse Ox O2 Delivery O2 Flow Rate FiO2 04/23/17 07:57 Room Air 04/23/17 07:40 36.4 76 16 115/76 (89) 92 Room Air 04/23/17 00:10 Room Air 04/22/17 23:24 36.7 74 18 125/77 (93) 96 Room Air 04/22/17 19:34 36.1 74 18 130/79 (96) 95 Room Air 04/22/17 16:14 36.6 72 18 136/80 (98) 94 Room Air 04/22/17 16:00 94 Room Air 04/22/17 15:41 71 20 122/77 (92) 97 Room Air 04/22/17 15:25 71 18 117/72 (87) 94 Room Air 04/22/17 14:49 36.8 68 18 128/81 (97) 94 Room Air (Krystle Guerrero PA-C) Physical Exam Notes: General Appearance: WD/WN, no apparent distress, + obese Eyes: PERRL, EOMI ENT: hearing grossly normal, pharynx normal Neck: supple, no JVD Respiratory/Chest: lungs clear, no respiratory distress, no accessory muscle use Cardiovascular: regular rate, rhythm, no murmur Abdomen: normal bowel sounds, soft, no organomegaly, + pertinent finding ( tender to palpation in the epigastric region, Ostomy in LLQ with dark liquid outs) Extremities: non-tender, no pedal edema, no calf tenderness Neurologic/Psychiatric: no motor/sensory deficits, alert, oriented x 3 Skin: normal color, warm/dry (Krystle Guerrero PA-C) Laboratory Results Last 24 Hours Test 04/23/17 05:35 White Blood Count 9.64 K/uL Red Blood Count 4.37 M/uL Hemoglobin 12.3 g/dL Hematocrit 38.3 % Mean Corpuscular Volume 87.6 fL Mean Corpuscular Hemoglobin 28.1 pg Mean Corpuscular Hemoglobin Concent 32.1 g/dl Platelet Count 265 K/uL Mean Platelet Volume 8.9 fL Neutrophils (%) (Auto) 65.7 % Lymphocytes (%) (Auto) 27.8 % Monocytes (%) (Auto) 5.9 % Eosinophils (%) (Auto) 0.2 % Basophils (%) (Auto) 0.1 % Neutrophils # (Auto) 6.33 K/uL Lymphocytes # (Auto) 2.68 K/uL Monocytes # (Auto) 0.57 K/uL Eosinophils # (Auto) 0.02 K/uL Basophils # (Auto) 0.01 K/uL RDW Standard Deviation 47.1 fL RDW Coefficient of Variation 14.7 % Immature Granulocyte % (Auto) 0.3 % Immature Granulocyte # (Auto) 0.03 K/uL Prothrombin Time 11.7 SECONDS Prothromb Time International Ratio 1.1 Activated Partial Thromboplast Time 24.0 SECONDS Partial Thromboplastin Ratio 0.9 Sodium Level 140 mmol/L Potassium Level 3.0 mmol/L Chloride Level 102 mmol/L Carbon Dioxide Level 32 mmol/L Anion Gap 6.0 mmol/L Blood Urea Nitrogen 11 mg/dl Creatinine 1.10 mg/dl Est Creatinine Clear Calc Drug Dose 59.8 ml/min Estimated GFR () 68.8 Estimated GFR (Non- 59.3 BUN/Creatinine Ratio 9.8 Random Glucose 78 mg/dl Calcium Level 7.9 mg/dl Magnesium Level 2.2 mg/dl Total Bilirubin 0.3 mg/dl Direct Bilirubin < 0.1 mg/dl Aspartate Amino Transf (AST/SGOT) 14 U/L Alanine Aminotransferase (ALT/SGPT) 30 U/L Alkaline Phosphatase 73 U/L Total Protein 5.9 gm/dl Albumin 2.7 gm/dl (Krystle Guerrero PA-C) Assessment and Plan Persistent abdominal pain/[facility] of [facility]- - CT abd/pelvis repeated here: Last was done on 03/11/17 IMPRESSION: 1. There are no acute infectious or inflammatory findings in the abdomen or pelvis. 2. There are postoperative changes from subtotal colectomy with left lower quadrant ileostomy. No bowel obstruction is seen. 3. Hepatomegaly and hepatic steatosis. 4. Nonobstructing left renal calculus. - GI on board - ilioscopy by Dr. Lott on 04/22 completed and normal/no active flare of crohns- he wants to discuss with Dr. Luna today to consider EUS+/- ERCP given gallstone and chemical evidence of pancreatitis - Clears for now. - Pain control with morphine 2-4 mg Q4H and toradol. Avoid oral narcotics with hx of Chrons - Follow lipase- up to 429 today. Hypokalemia - K+ 3.0, replace with IV and PO Crohns Disease - Uses Stellara 90 U as oupt, last dose was beginning of March Anxiety/depression - continue trazodone, fluoxetine, donepezil, bupropion. Asthma -continue Symbicort. DVT ppx: teds, scds, CODE STATUS: FULL CODE Disposition: From home, discharge after EUS/ERCP scheduled for (Krystle Guerrero PA-C) ANKITA Physician Supervision Note: I interviewed and examined the patient. Discussed with Krystle Guerrero PAC and agree with findings and plan as documented in the note. Any exceptions or clarifications are listed here: None Patient still was some abdominal symptoms, did have EGD 04/22 of ileostomy no active chrons. mild elevation of lipase,tolerating po liquids, will have EUS to further evaluate biliary and pancreatic systems per GI medicine recommendations Vital signs remain stable Abdomen soft and less tender Cardiac is regular, lungs remain clear Symptom control for abdominal pain, continue PPI, plans for further invasive testing Bandar Anne (Bandar Anne M.D.)
--- NOTE | 2017-04-23 10:41 | Gastroenterology Progress Note ---
Progress Note Date of Service: Apr 23, 2017 Subjective Pt evaluation today including: conversation w/ patient, physical exam, chart review, lab review, review of studies, review of inpatient medication list CC f/u epigastric pain HPI Discussed with DR Lott and noted Ileoscopy to 30 cm normal. Pain is constant in epigastrium but gets intensity waxes and wanes. Has been nauseated but not today. She thinks stools output about the same as at home but also is not eating. Review of Systems Respiratory: No shortness of breath Cardiac: No chest pain Medications Current Inpatient Medications Medications (Trade) Dose Ordered Sig/Sd Route Start Time Stop Time Status Last Admin Dose Admin Acetaminophen (Tylenol Tab) 650 mg Q6 PRN PO 04/21/17 13:45 05/21/17 13:44 Budesonide/ Formoterol Fumarate (Symbicort 80/ 4.5 Inh) 2 puffs BID INH 04/21/17 21:00 05/21/17 20:59 04/23/17 08:16 2 PUFFS Bupropion HCl (Wellbutrin-Sr Tab) 150 mg BID PO 04/21/17 21:00 05/21/17 20:59 04/23/17 08:19 150 MG Fluoxetine HCl (Prozac Cap) 20 mg TID PO 04/21/17 14:00 05/21/17 13:59 04/23/17 08:18 20 MG Ioversol (Optiray 320) 125 ml UD PRN IV 04/21/17 14:15 04/25/17 14:14 Morphine Sulfate (MoRPHine SULFATE INJ) 2 mg Q2H PRN IV 04/21/17 16:15 05/05/17 16:14 Morphine Sulfate (MoRPHine SULFATE INJ) 4 mg Q2H PRN IV 04/21/17 16:15 05/05/17 16:14 04/23/17 06:04 4 MG Ondansetron HCl (Zofran Inj) 4 mg Q6H PRN IV 04/21/17 18:15 05/21/17 18:14 04/21/17 18:22 4 MG Ketorolac Tromethamine (Toradol Inj) 30 mg Q6H PRN IV 04/21/17 18:15 04/26/17 18:14 Cholecalciferol (Vitamin D Tab) 6,000 inter.unit DAILY PO 04/22/17 09:00 8/9/17 08:59 04/23/17 08:18 6,000 INTER.UNIT Dicyclomine HCl (Bentyl Cap) 10 mg TID PO 04/21/17 21:00 05/21/17 20:59 04/23/17 08:19 10 MG Donepezil HCl (Aricept Tab) 10 mg HS PO 04/21/17 21:00 05/21/17 20:59 04/22/17 21:25 10 MG Trazodone HCl (Desyrel Tab) 150 mg HS PO 04/21/17 21:00 05/21/17 20:59 04/22/17 21:26 150 MG Pantoprazole Sodium 40 mg/ Syringe 10 ml @ 5 mls/min DAILY@ IV 04/22/17 21:00 05/22/17 20:59 04/23/17 08:17 5 MLS/MIN Potassium Chloride 10 meq/ Prmx 100 ml @ 100 mls/hr Q1H IV 04/23/17 07:30 04/23/17 10:29 04/23/17 09:24 100 MLS/HR Potassium Chloride (Klor-Con Tab) 20 meq BID PO 04/23/17 09:00 04/24/17 09:01 04/23/17 08:17 20 MEQ Objective Vital Signs Date Time Temp Pulse Resp B/P (MAP) Pulse Ox O2 Delivery O2 Flow Rate FiO2 04/23/17 07:57 Room Air 04/23/17 07:40 36.4 76 16 115/76 (89) 92 Room Air 04/23/17 00:10 Room Air 04/22/17 23:24 36.7 74 18 125/77 (93) 96 Room Air 04/22/17 19:34 36.1 74 18 130/79 (96) 95 Room Air 04/22/17 16:14 36.6 72 18 136/80 (98) 94 Room Air 04/22/17 16:00 94 Room Air 04/22/17 15:41 71 20 122/77 (92) 97 Room Air 04/22/17 15:25 71 18 117/72 (87) 94 Room Air 04/22/17 14:49 36.8 68 18 128/81 (97) 94 Room Air Physical Exam General Appearance: WD/WN, no apparent distress Respiratory/Chest: lungs clear, normal breath sounds Cardiovascular: no murmur Abdomen: normal bowel sounds, soft, no organomegaly, + pertinent finding (no guarding, nor rebound, stool in ostomy orange) Laboratory Results Last 24 Hours Test 04/23/17 05:35 White Blood Count 9.64 K/uL Red Blood Count 4.37 M/uL Hemoglobin 12.3 g/dL Hematocrit 38.3 % Mean Corpuscular Volume 87.6 fL Mean Corpuscular Hemoglobin 28.1 pg Mean Corpuscular Hemoglobin Concent 32.1 g/dl Platelet Count 265 K/uL Mean Platelet Volume 8.9 fL Neutrophils (%) (Auto) 65.7 % Lymphocytes (%) (Auto) 27.8 % Monocytes (%) (Auto) 5.9 % Eosinophils (%) (Auto) 0.2 % Basophils (%) (Auto) 0.1 % Neutrophils # (Auto) 6.33 K/uL Lymphocytes # (Auto) 2.68 K/uL Monocytes # (Auto) 0.57 K/uL Eosinophils # (Auto) 0.02 K/uL Basophils # (Auto) 0.01 K/uL RDW Standard Deviation 47.1 fL RDW Coefficient of Variation 14.7 % Immature Granulocyte % (Auto) 0.3 % Immature Granulocyte # (Auto) 0.03 K/uL Prothrombin Time 11.7 SECONDS Prothromb Time International Ratio 1.1 Activated Partial Thromboplast Time 24.0 SECONDS Partial Thromboplastin Ratio 0.9 Sodium Level 140 mmol/L Potassium Level 3.0 mmol/L Chloride Level 102 mmol/L Carbon Dioxide Level 32 mmol/L Anion Gap 6.0 mmol/L Blood Urea Nitrogen 11 mg/dl Creatinine 1.10 mg/dl Est Creatinine Clear Calc Drug Dose 59.8 ml/min Estimated GFR () 68.8 Estimated GFR (Non- 59.3 BUN/Creatinine Ratio 9.8 Random Glucose 78 mg/dl Calcium Level 7.9 mg/dl Magnesium Level 2.2 mg/dl Total Bilirubin 0.3 mg/dl Direct Bilirubin < 0.1 mg/dl Aspartate Amino Transf (AST/SGOT) 14 U/L Alanine Aminotransferase (ALT/SGPT) 30 U/L Alkaline Phosphatase 73 U/L Total Protein 5.9 gm/dl Albumin 2.7 gm/dl Lipase 429 U/L Assessment and Plan Abdominal pain--epigastric----no evidence of pancreatitis or active IBD on CT or ileooscopy- stool for Cdiff neg, ileoscopy negative. PUD does not seem severe enough. No evidence of volvulus or ischemia on any of the tests. Perhaps gallstones are causative. PUD--esophagitis, and gastritis on EGD at [facility]--Rx with PPI Gallstones on u/s at [facility]--HIDA and MRCP negative and LFTs normal but maybe these are causing pain. Discussed with DR Luna and he is planning to do EUS this week (when he can get time slot) to look at pancreas and also bile duct to see if sludge present. Crohns-- ileoscopy neg so with 2 CTs neg then flare less likely--on Stelara as an outpt. hx Bright blood in ostomy-- C diff and ileoscopy negative Diarrhea--workup as above, quatitate stool output Elevated lipase on admit at [facility]--no evidence of pancreatis on CT 04/[address] 04/21/17--no recent new meds, no ETOH use, Trigs 422 on 04/16, EUS as above.
[2017-04-23] MEDS: KETOROLAC TROMETHAMINE 30 MG/ML VIAL IV PRN (11:37)
--- NOTE | 2017-04-23 13:42 | Anesthesiology Progress Note ---
Anesthesia Progress Note Date of Service Apr 23, 2017. Progress Notes Ms. Isidro had MAC for GI procedure 04/22/17 without issue. Plan for EUS 04/24/[address] Luna. No significant changes to her health. Anesthesia consent obtained for GETA. All questions answered.
[2017-04-23 15:36] VITALS: BP 118/78; PULSE 70; TEMP 36.4; O2SAT 96
[2017-04-23] MEDS: MoRPHine SULFATE 2 MG/ML CARP IV PRN ×2 (15:43→21:03)
[2017-04-23] MEDS: DONEPEZIL HCL 10 MG TAB PO SCH (21:05)
[2017-04-23] MEDS: TRAZODONE HCL 50 MG TAB PO SCH (23:22)
[2017-04-23 23:54] VITALS: BP 108/72; PULSE 74; TEMP 36.5; O2SAT 95
[2017-04-24 03:51] VITALS: BP 120/83; PULSE 62; TEMP 36.7; O2SAT 95
[2017-04-24 07:37] VITALS: BP 120/83; PULSE 62; TEMP 36.7; O2SAT 95
[2017-04-24 07:40] LABS: INR 1.1 (0.9-1.1); PROTHROMBIN TIME (PATIENT) 12.3 SECONDS (9.0-12.0)
[2017-04-24 07:50] LABS: BASO % 0.3 %; BASO ABS # 0.02 K/uL (0-0.2); COMPLETE YES; EOS % 1.7 %; HEMATOCRIT 41.9 % (37-47); IG% 0.3 %; LYMPH % 21.8 %; LYMPH ABS # 1.56 K/uL (1.2-3.4); MEAN CORPUSCULAR HEMOGLOBIN 27.8 pg (25-34); MEAN CORPUSCULAR HGB CONC 31.3 g/dl (32-36); MEAN PLATELET VOLUME 9.2 fL (7.4-10.4); MONO % 6.3 %; NEUT % 69.6 %; PLATELET COUNT 262 K/uL (130-400); RED BLOOD COUNT 4.71 M/uL (4.2-5.4); WHITE BLOOD COUNT 7.16 K/uL (4.8-10.8)
[2017-04-24 07:58] LABS: ALT/SGPT 33 U/L (12-78); BLOOD UREA NITROGEN 8 mg/dl (7-18); BUN/CREATININE RATIO 6.9 (10-20); CALCIUM 8.3 mg/dl (8.5-10.1); CARBON DIOXIDE 31 mmol/L (21-32); CHLORIDE 102 mmol/L (98-107); GLUCOSE 81 mg/dl (70-99); POTASSIUM 3.2 mmol/L (3.5-5.1); SODIUM 141 mmol/L (136-145)
[2017-04-24] MEDS: BUDESONIDE/FORMOTEROL FUMARATE 80/4.5 60 PUFFS/INHALER INH SCH ×2 (07:59→21:11)
[2017-04-24] MEDS: POTASSIUM CHLORIDE 20 MEQ TABCR PO SCH (08:00)
[2017-04-24] MEDS: FLUOXETINE HCL 20 MG CAP PO SCH ×3 (08:00→21:12)
[2017-04-24] MEDS: DICYCLOMINE HCL 10 MG CAP PO SCH ×3 (08:00→21:13)
[2017-04-24] MEDS: PANTOprazole INJ 40 MG in SYRINGE 0 ML IV SCH ×2 (08:00→21:12)
[2017-04-24 08:01] LABS: ALB/GLOB RATIO 0.9 (0.9-2); ALKALINE PHOSPHATASE 72 U/L (45-117); AST/SGOT 23 U/L (15-37)
[2017-04-24] MEDS: CHOLECALCIFEROL 1000 INTER.UNIT TAB PO SCH (08:01)
[2017-04-24] MEDS: BuPROPion SR 150 MG TABCR PO SCH ×2 (08:01→21:12)
--- NOTE | 2017-04-24 08:29 | Hospitalist Progress Note ---
Hospitalist Progress Note Date of Service Apr 24, 2017. (Krystle Guerrero PA-C) Subjective Pt evaluation today including: conversation w/ patient, physical exam, chart review, lab review, review of studies, review of inpatient medication list Pain: Epigastric abd pain improving PO Intake: NPO Voiding: no voiding problems The patient was seen and examined this morning. Pt reports her abdominal pain is slightly improved this morning. She is anticipating EUS/ERCP today and state "Im ready to get it over with" and "I'm ready to eat something real" She denies any fever, sweats or chills. Reports had a headache last night but that its gone now. She is hopeful to go home today after procedure or tomorrow. Additional Comments: ROS: 6 point ROS reviewed and otherwise negative. (Krystle Guerrero PA-C) Objective Vital Signs Date Time Temp Pulse Resp B/P (MAP) Pulse Ox O2 Delivery O2 Flow Rate FiO2 04/24/17 07:37 36.7 62 18 120/83 (95) 95 Room Air 04/24/17 00:00 Room Air 04/23/17 23:54 36.5 74 18 108/72 (84) 95 Room Air 04/23/17 16:00 Room Air 04/23/17 15:36 36.4 70 18 118/78 (91) 96 Room Air (Krystle Guerrero PA-C) Physical Exam Notes: General Appearance: WD/WN, no apparent distress, + obese Eyes: PERRL, EOMI ENT: hearing grossly normal, pharynx normal Neck: supple, no JVD Respiratory/Chest: lungs clear, no respiratory distress, no accessory muscle use Cardiovascular: regular rate, rhythm, no murmur Abdomen: normal bowel sounds, soft, no organomegaly, + pertinent finding ( minimally tender to palpation in the epigastric region, Ostomy in LLQ with yellow/brown liquid outs) Extremities: non-tender, no pedal edema, no calf tenderness Neurologic/Psychiatric: no motor/sensory deficits, alert, oriented x 3 Skin: normal color, warm/dry (Krystle Guerrero PA-C) Laboratory Results Last 24 Hours Test 04/24/17 06:55 White Blood Count 7.16 K/uL Red Blood Count 4.71 M/uL Hemoglobin 13.1 g/dL Hematocrit 41.9 % Mean Corpuscular Volume 89.0 fL Mean Corpuscular Hemoglobin 27.8 pg Mean Corpuscular Hemoglobin Concent 31.3 g/dl Platelet Count 262 K/uL Mean Platelet Volume 9.2 fL Neutrophils (%) (Auto) 69.6 % Lymphocytes (%) (Auto) 21.8 % Monocytes (%) (Auto) 6.3 % Eosinophils (%) (Auto) 1.7 % Basophils (%) (Auto) 0.3 % Neutrophils # (Auto) 4.99 K/uL Lymphocytes # (Auto) 1.56 K/uL Monocytes # (Auto) 0.45 K/uL Eosinophils # (Auto) 0.12 K/uL Basophils # (Auto) 0.02 K/uL RDW Standard Deviation 48.4 fL RDW Coefficient of Variation 14.7 % Immature Granulocyte % (Auto) 0.3 % Immature Granulocyte # (Auto) 0.02 K/uL Prothrombin Time 12.3 SECONDS Prothromb Time International Ratio 1.1 Activated Partial Thromboplast Time 25.4 SECONDS Partial Thromboplastin Ratio 1.0 Sodium Level 141 mmol/L Potassium Level 3.2 mmol/L Chloride Level 102 mmol/L Carbon Dioxide Level 31 mmol/L Anion Gap 8.0 mmol/L Blood Urea Nitrogen 8 mg/dl Creatinine 1.20 mg/dl Est Creatinine Clear Calc Drug Dose 54.8 ml/min Estimated GFR () 61.9 Estimated GFR (Non- 53.4 BUN/Creatinine Ratio 6.9 Random Glucose 81 mg/dl Calcium Level 8.3 mg/dl Magnesium Level 2.0 mg/dl Total Bilirubin 0.3 mg/dl Direct Bilirubin < 0.1 mg/dl Aspartate Amino Transf (AST/SGOT) 23 U/L Alanine Aminotransferase (ALT/SGPT) 33 U/L Alkaline Phosphatase 72 U/L Total Protein 5.9 gm/dl Albumin 2.8 gm/dl Globulin 3.1 gm/dl Albumin/Globulin Ratio 0.9 (Krystle Guerrero PA-C) Assessment and Plan Persistent abdominal pain/recent treatment for pancreatitis at [facility]/history of Crohn's disease- - CT abd/pelvis repeated here: Last was done on 03/11/17 IMPRESSION: 1. There are no acute infectious or inflammatory findings in the abdomen or pelvis. 2. There are postoperative changes from subtotal colectomy with left lower quadrant ileostomy. No bowel obstruction is seen. 3. Hepatomegaly and hepatic steatosis. 4. Nonobstructing left renal calculus. - GI on board - ilioscopy by Dr. Lott on 04/22 completed and normal/no active flare of crohns - Planned EUS+/- ERCP given gallstone and chemical evidence of pancreatitis today - NPO for procedure - Pain control with morphine 2-4 mg Q4H and toradol. Avoid oral narcotics with hx of Chrons - Follow lipase Hypokalemia - K+ 3.2, replace with IV and PO Crohns Disease - Uses Stellara 90 U as oupt, last dose was beginning of March Anxiety/depression - continue trazodone, fluoxetine, donepezil, bupropion. Asthma -continue Symbicort. DVT ppx: teds, scds, CODE STATUS: FULL CODE Disposition: From home, discharge after EUS/ERCP scheduled for (Krystle Guerrero PA-C) PA Physician Supervision Note: I interviewed and examined the patient. Discussed with Krystle Guerrero PAC and agree with findings and plan as documented in the note. Any exceptions or clarifications are listed here: None Patient with improving abdominal symptoms, did have EGD 04/22 of ileostomy no active crohns. mild elevation of lipase,tolerating po liquids,04/24/17 EUS to further evaluate biliary and pancreatic systems per GI medicine recommendations Vital signs remain stable Abdomen soft and non tender Cardiac is regular, lungs remain clear Symptom control for abdominal pain, continue PPI, likely home if tolerating food Bandar Anne (Bandar Anne M.D.)
[2017-04-24] MEDS ORDERED: POTASSIUM CHLORIDE 20 MEQ TABCR PO SCH (09:00)
[2017-04-24] MEDS: POTASSIUM CHLR 10 MEQ / WTR 10 MEQ in PREMIXED WATER 100 ML IV SCH ×3 (10:55→12:57)
[2017-04-24] MEDS ORDERED: MIDAZOLAM HCL 1 MG/ML 2ML VIAL ONE (15:02)
[2017-04-24] MEDS ORDERED: FENTANYL CITRATE INJ 50 MCG/1 ML 2 ML VIAL ONE ×2 (15:02→16:12)
--- NOTE | 2017-04-24 15:11 | History & Physical Bridge Note ---
H&P Re-Evaluation Bridge Note: I have examined the patient, reviewed the History & Physical and in the interval since the performance of the History & Physical I have noted the following changes of clinical significance: consent obtained for diagnostic EUS and ERCP if necessary. RISKS/BENEFITS AND ALTERNATIVES DISCUSSED WITH PATIENT INCLUDING BLEEDING/ INFECTION/PERFORATION AND PANCREATITIS (APPROXIMATELY 5%) PATIENT AGREES TO PROCEED No changes noted
--- NOTE | 2017-04-24 15:43 | Discharge Instructions ---
Discharge Instructions Date of Service Apr 24, 2017. Admission Reason for Admission: Crohns Disease, Pancreatitis Discharge Discharge Diagnosis / Problem: Abdominal pain due to pancreatitis Discharge Goals Goal(s): Decrease discomfort, Improve function, Increase independence, Improve disease control Activity Recommendations Activity Limitations: resume your previous activity Lifting Limitations: no more than 25 pounds, gradually increase as tolerated Exercise/Sports Limitations: rest today, gradually increase as tolerated May Resume Sexual Activity: when tolerated Shower/Bathe: no limitations Driving or Machine Use: no limitations . Instructions / Follow-Up Instructions / Follow-Up You were admitted to [facility] with abdominal pain and diagnosed with abdominal pain secondary to mild pancreatitis. During your stay here you were evaluated by GI, Dr. Lott, and had an ileoscopy performed on 04/22/17. There was not an active Crohns flare seen during the procedure. You underwent an EGD/ERCP on 04/24/17 and results of the study showed: one gallstone and mild sludge. You will need to have an outpatient cholecystectomy scheduled as an outpatient. Abdominal pain improved with medications and you were able to tolerate a diet prior to discharge. Continue taking all medications as prescribed Follow-up: Follow-up with PCP in 1 week Follow-up with GI within 1-[address] Lott, you will need to have an outpatient cholecystectomy scheduled by their office. Current Hospital Diet Patient's current hospital diet: Clear Liquid Diet Discharge Diet Recommended Diet: Regular Diet Procedures Procedures Performed: Ileoscopy on 04/22/17 EUS/ERCP on 04/24/17 Pending Studies Studies pending at discharge: no Medical Emergencies . Who to Call and When: Medical Emergencies: If at any time you feel your situation is an emergency, please call 911 immediately. . Non-Emergent Contact Non-Emergency issues call your: Primary Care Provider, Ply Bander Call Non-Emergent contact if: you have a fever, temperature is above 100.5, your pain is not controlled, your pain is worsening, your pain is unusual for you, your pain is concerning you, you have any medication questions chest pain, shortness of breath, worsening abdominal pain, nausea, vomiting, diarrhea, constipation, lightheadedness, dizziness, fevers, sweats or chills, or if you have any other concerns regarding your health. . Past History Medical & Surgical History: (1) Crohns disease (2) Anxiety disorder (3) Hypothyroidism (4) Pancreatitis (5) Depressive disorder (6) Psoriasis . "Provider Documentation" section prepared by Cecy Guerrero. . VTE Core Measure Inpt VTE Proph given/why not?: T.E.D. Stockings, SCD's, Contraindicated
[2017-04-24] MEDS ORDERED: ATROPINE SULFATE 0.1 MG/ML 5ML SYR IV PRN (15:45)
[2017-04-24] MEDS ORDERED: ONDANSETRON INJ 2 MG/ML 2 ML VIAL IV PRN (15:45)
[2017-04-24] MEDS ORDERED: HYDROmorphone INJ 1 MG/ML SYR IV PRN (15:45)
[2017-04-24] MEDS ORDERED: EpHEDrine SULFATE INJ 50 MG/ML AMP IV PRN (15:45)
[2017-04-24] MEDS ORDERED: FENTANYL CITRATE INJ 50 MCG/1 ML 2 ML VIAL IV PRN (15:45)
[2017-04-24] MEDS ORDERED: PANT1TAB48 PO (15:48)
[2017-04-24] MEDS ORDERED: ONDANSETRON INJ 2 MG/ML 2 ML VIAL ONE (15:50)
[2017-04-24] MEDS ORDERED: SUCCINYLCHOLINE 100MG/5ML SYR IV ONE (15:50)
[2017-04-24] MEDS ORDERED: PROPOFOL IV EMULSION 10 MG/ML 20 ML VIAL IV ONE (15:50)
[2017-04-24] MEDS ORDERED: DEXAMETHASONE SOD INJ 4 MG/ML VIAL ONE (15:50)
[2017-04-24] MEDS ORDERED: LARYING-O-JET KIT (LTA) ONE ×2 (15:50)
[2017-04-24] MEDS ORDERED: LIDOCAINE HCL 2% 2 ML VIAL (20MG/ML) ONE (15:50)
[2017-04-24] MEDS ORDERED: ALBUTEROL HFA INHALER 8.5 GM INH ONE (16:08)
--- NOTE | 2017-04-24 17:08 | Anesthesiology Progress Note ---
Anesthesia Post Op Note Date & Time Apr 24, 2017 at 17:08 Vital Signs Pain Intensity: 0 Vital Signs Past 12 Hours Date Time Temp Pulse Resp B/P (MAP) Pulse Ox O2 Delivery O2 Flow Rate FiO2 04/24/17 17:01 160/95 04/24/17 17:00 72 18 96 04/24/17 17:00 76 18 04/24/17 16:59 88 22 95 04/24/17 16:59 87 22 04/24/17 16:54 69 12 99 04/24/17 16:54 69 12 04/24/17 16:52 158/92 04/24/17 16:51 147/104 04/24/17 16:49 74 18 04/24/17 16:49 77 18 100 04/24/17 16:45 146/91 04/24/17 16:44 79 11 04/24/17 16:44 79 11 97 04/24/17 16:44 36.6 73 16 146/91 99 Mask 10 04/24/17 13:55 Room Air 04/24/17 07:37 36.7 62 18 120/83 (95) 95 Room Air Notes Mental Status: alert / awake / arousable, participated in evaluation Pt Amnestic to Procedure: Yes Nausea / Vomiting: adequately controlled Pain: adequately controlled Airway Patency, RR, SpO2: stable & adequate BP & HR: stable & adequate Hydration State: stable & adequate Anesthetic Complications: no major complications apparent
--- NOTE | 2017-04-24 17:28 | GI REPORT ---
Procedure Date: 04/24/2017 3:21 PM Procedure: Upper EUS Indications: Abnormal abdominal/pelvic CT scan, Acute pancreatitis Medicines: General Anesthesia Complications: No immediate complications. Estimated blood loss: None. Estimated Blood Loss: Estimated blood loss: none. Estimated blood loss: none. Procedure: Pre-Anesthesia Assessment: - Prior to the procedure, a History and Physical was performed, and patient medications and allergies were reviewed. The patient's tolerance of previous anesthesia was also reviewed. The risks and benefits of the procedure and the sedation options and risks were discussed with the patient. All questions were answered, and informed consent was obtained. Prior Anticoagulants: The patient has taken no previous anticoagulant or antiplatelet agents. ASA Grade Assessment: II - A patient with mild systemic disease. After reviewing the risks and benefits, the patient was deemed in satisfactory condition to undergo the procedure. After obtaining informed consent, the endoscope was passed under direct vision. Throughout the procedure, the patient's blood pressure, pulse, and oxygen saturations were monitored continuously. The Endosonoscope was introduced through the mouth, and advanced to the second part of duodenum. The upper EUS was accomplished without difficulty. The patient tolerated the procedure well. Findings: Endoscopic Finding : The examined esophagus was normal. The entire examined stomach was normal. The examined duodenum was normal. The ampulla was normal. Endosonographic Finding : The esophagus, stomach and duodenum and adjacent structures were visualized endosonographically. There was no sign of significant endosonographic abnormality in the esophagus. No pathologic lymphadenopathy was identified. Endosonographic images of the stomach were unremarkable. No pathologic lymphadenopathy was identified. There was no sign of significant endosonographic abnormality in the examined duodenum. No pathologic lymphadenopathy was identified. There was no sign of significant endosonographic abnormality in the ampulla. No pathologic lymphadenopathy and no masses were identified. There was no sign of significant endosonographic abnormality in the common bile duct. The maximum diameter of the duct was 4 mm. No stones, no biliary sludge and ducts of normal caliber were identified. One stone was visualized endosonographically in the gallbladder body. The stone measured 15 mm in greatest dimension. The stone was oval. It was hyperechoic and characterized by shadowing. There was no sign of significant endosonographic abnormality in the pancreatic head, in the pancreatic body, in the pancreatic tail, in the uncinate process of the pancreas and in the main pancreatic duct. The pancreatic duct measured up to 1 mm in diameter. The pancreas was well visualized, no pathologic lymphadenopathy, no cysts, no calcifications, the pancreatic duct was thin in caliber. No lymphadenopathy seen. Impression: - Normal esophagus. - Normal stomach. - Normal examined duodenum. - Normal ampulla. - There was no sign of significant pathology in the esophagus. - Endosonographic images of the stomach were unremarkable. - There was no sign of significant pathology in the examined duodenum. - There was no sign of significant pathology in the ampulla. - There was no sign of significant pathology in the common bile duct. - One stone was visualized endosonographically in the gallbladder body. Sludge (mild) also identified. - There was no sign of significant pathology in the pancreatic head, in the pancreatic body, in the pancreatic tail, in the uncinate process of the pancreas and in the main pancreatic duct. - No specimens collected. Recommendation: - [facility] to [facility]. - Refer to a surgeon. - Follow labs. Filling defects in the bile duct are not visualized. The pancreas does not reveal features of chronic pancreatitis. MD Kale Sibley MD 04/24/2017 5:28:01 PM This report has been signed electronically. Note Initiated On: 04/24/2017 3:21 PM I attest to the content of the Intraoperative Record and orders documented therein, exceptions below
[2017-04-24 17:53] VITALS: O2SAT 96
[2017-04-24] MEDS: MoRPHine SULFATE 2 MG/ML CARP IV PRN (21:10)
[2017-04-24] MEDS: DONEPEZIL HCL 10 MG TAB PO SCH (21:13)
[2017-04-24] MEDS: TRAZODONE HCL 50 MG TAB PO SCH (23:09)
[2017-04-24 23:38] VITALS: BP 112/72; PULSE 94; TEMP 36.8; O2SAT 94
[2017-04-25] MEDS: MoRPHine SULFATE 2 MG/ML CARP IV PRN ×2 (02:37→06:10)
[2017-04-25 06:31] LABS: ALKALINE PHOSPHATASE 74 U/L (45-117); ALT/SGPT 32 U/L (12-78); AST/SGOT 14 U/L (15-37)
[2017-04-25 07:38] LABS: BUN/CREATININE RATIO 6.9 (10-20); CALCIUM 8.6 mg/dl (8.5-10.1); CREATININE 1.2 mg/dl (0.60-1.20); POTASSIUM 3.7 mmol/L (3.5-5.1)
[2017-04-25 08:05] VITALS: BP 119/77; PULSE 87; TEMP 36.6; O2SAT 94
[2017-04-25] MEDS: DICYCLOMINE HCL 10 MG CAP PO SCH (08:26)
[2017-04-25] MEDS: BUDESONIDE/FORMOTEROL FUMARATE 80/4.5 60 PUFFS/INHALER INH SCH (08:26)
[2017-04-25] MEDS: PANTOprazole INJ 40 MG in SYRINGE 0 ML IV SCH (08:26)
[2017-04-25] MEDS: BuPROPion SR 150 MG TABCR PO SCH (08:27)
[2017-04-25] MEDS: CHOLECALCIFEROL 1000 INTER.UNIT TAB PO SCH (08:27)
[2017-04-25] MEDS: FLUOXETINE HCL 20 MG CAP PO SCH (08:27)
[2017-04-25] MEDS: MoRPHine SULFATE 4 MG/ML 1 ML CARP IV PRN (08:30)
--- NOTE | 2017-04-25 10:07 | Anesthesiology Progress Note ---
Anesthesia Post Op Note Date & Time Apr 25, 2017 at 10:06 Vital Signs Pain Intensity: 6.0 Vital Signs Past 12 Hours Date Time Temp Pulse Resp B/P (MAP) Pulse Ox O2 Delivery O2 Flow Rate FiO2 04/25/17 08:05 36.6 87 18 119/77 (91) 94 Room Air 04/25/17 08:00 Room Air 04/25/17 00:00 Room Air 04/24/17 23:38 36.8 94 16 112/72 (85) 94 Room Air Notes Mental Status: alert / awake / arousable, participated in evaluation Pt Amnestic to Procedure: Yes Nausea / Vomiting: adequately controlled Pain: adequately controlled Airway Patency, RR, SpO2: stable & adequate BP & HR: stable & adequate Hydration State: stable & adequate Anesthetic Complications: no major complications apparent
[2017-04-25] MEDS ORDERED: TRAM-10 PO (10:32)
[2017-04-25] MEDS: KETOROLAC TROMETHAMINE 30 MG/ML VIAL IV PRN (10:49)
--- NOTE | 2017-04-25 10:49 | Discharge Summary ---
Discharge Summary Date of Service Apr 25, 2017. (Krystle Guerrero PA-C) Discharge Summary Admission Date: Apr 21, 2017 at 12:15 Discharge Date: Apr 25, 2017 Discharge Disposition: Home Principal Diagnosis: Abdominal Pain Immunizations: Have You Had Influenza Vaccine: Unknown History of Tetanus Vaccine?: Unknown History of Pneumococcal: Unknown History of Hepatitis B Vaccine: Unknown Procedures: CT SCAN OF THE ABDOMEN AND PELVIS WITH IV CONTRAST 04/24/17 IMPRESSION: 1. There are no acute infectious or inflammatory findings in the abdomen or pelvis. 2. There are postoperative changes from subtotal colectomy with left lower quadrant ileostomy. No bowel obstruction is seen. 3. Hepatomegaly and hepatic steatosis. 4. Nonobstructing left renal calculus. 5. Additional findings as above. LEFT LOWER EXTREMITY VENOUS DOPPLER 04/21/17 CLINICAL HISTORY: Left lower extremity pain. COMPARISON STUDY: No previous studies for comparison. TECHNIQUE: Sonography of the deep venous system of the left lower extremity was performed. Compression and augmentation were evaluated. FINDINGS: The left common femoral, superficial femoral and popliteal veins were compressible. Augmentation was normal. Flow was shown within the deep calf vessels. IMPRESSION: No evidence of deep venous thrombus within the left lower extremity. Electronically signed by: Tone Siegel M.D. 04/22/2017 7:07 AM Dictated Date/Time: 04/22/2017 7:07 AM The status of this report is Signed. EGD/EUS 04/24/17 Findings: Endoscopic Finding : The examined esophagus was normal. The entire examined stomach was normal. The examined duodenum was normal. The ampulla was normal. Endosonographic Finding : The esophagus, stomach and duodenum and adjacent structures were visualized endosonographically. There was no sign of significant endosonographic abnormality in the esophagus. No pathologic lymphadenopathy was identified. Endosonographic images of the stomach were unremarkable. No pathologic lymphadenopathy was identified. There was no sign of significant endosonographic abnormality in the examined duodenum. No pathologic lymphadenopathy was identified. There was no sign of significant endosonographic abnormality in the ampulla. No pathologic lymphadenopathy and no masses were identified. There was no sign of significant endosonographic abnormality in the common bile duct. The maximum diameter of the duct was 4 mm. No stones, no biliary sludge and ducts of normal caliber were identified. One stone was visualized endosonographically in the gallbladder body. The stone measured 15 mm in greatest dimension. The stone was oval. It was hyperechoic and characterized by shadowing. There was no sign of significant endosonographic abnormality in the pancreatic head, in the pancreatic body, in the pancreatic tail, in the uncinate process of the pancreas and in the main pancreatic duct. The pancreatic duct measured up to 1 mm in diameter. The pancreas was well visualized, no pathologic lymphadenopathy, no cysts, no calcifications, the pancreatic duct was thin in caliber. No lymphadenopathy seen. Impression: - Normal esophagus. - Normal stomach. - Normal examined duodenum. - Normal ampulla. - There was no sign of significant pathology in the esophagus. - Endosonographic images of the stomach were unremarkable. - There was no sign of significant pathology in the examined duodenum. - There was no sign of significant pathology in the ampulla. - There was no sign of significant pathology in the common bile duct. - One stone was visualized endosonographically in the gallbladder body. Sludge (mild) also identified. - There was no sign of significant pathology in the pancreatic head, in the pancreatic body, in the pancreatic tail, in the uncinate process of the pancreas and in the main pancreatic duct. - No specimens collected. Recommendation: - [facility]. - Refer to a surgeon. - Follow labs. Filling defects in the bile duct are not visualized. The pancreas does not reveal features of chronic pancreatitis. Consultations: Gastroenterology (Krystle Guerrero PA-C) Medication Reconciliation New Medications: Pantoprazole (Protonix) 40 Mg Tab 1 TAB PO DAILY for 30 Days, #30 TAB 0 Refills Tramadol (Ultram) 50 Mg Tab 50 MG PO Q4H PRN for Pain for 7 Days, #28 TAB Continued Medications: Acetaminophen Tab (Tylenol) 325 Mg Tab 650 MG PO Q6 PRN for Pain, TAB Budesonide/Formoterol Fumarate (Symbicort 80/4.5 Inhaler) Aero 2 PUFFS INH BID, INHALER Bupropion Hcl (Bupropion Hcl Er) 150 Mg Tab 1 TAB PO BID Cholecalciferol (Vitamin D 1000 Unit) 1,000 Unit Cap 6000 INTER.UNIT PO DAILY, CAP Dicyclomine Hcl (Bentyl) 10 Mg Cap 1 CAP PO TID for 30 Days, #90 CAP 1 Refill Donepezil Hydrochloride (Aricept) 10 Mg Tab 1 TAB PO am for 30 Days, #30 TAB 5 Refills Fluoxetine (Prozac) 20 Mg Cap 20 MG PO TID, CAP Potassium Chloride (Potassium Chloride) 40 Meq/100 Ml Inj 40 MEQ PO Q3H Prednisone (Prednisone) 20 Mg Tab 40 MG PO, TAB Trazodone Hcl (Desyrel) 150 Mg Tab 150 MG PO DAILY, TAB Ustekinumab (Stelara) 90 Mg/Ml Inj 90 MG IM [id number] [vitamin b12 inj.] () 1 SYR SQ MONTHLY Discharge Exam The patient was seen and examined this morning. Pt reports doing well today but still has slight constant dull ache in the upper epigastric region, it is improved in comparison to vaner in hospital stay. She ate breakfast this morning and tolerated it without any difficulty. She denies nausea, vomiting, diarrhea, or constipation. Her bowel appear more normal to her in the ostomy bag. Review of Systems: Constitutional: No fever, No chills, No sweats, No fatigue Eyes: No diplopia ENT: No trouble swallowing Respiratory: No cough, No shortness of breath, No dyspnea on exertion, No dyspnea at rest Cardiovascular: No chest pain, No palpitations Abdomen: + problem reported (see HPI, ostomy functioning appropriately), No nausea, No vomiting, No diarrhea, No constipation Musculoskeletal: No joint pain, No swelling Genitourinary - Female: No dysuria Neurologic: No numbness/tingling, No balance problems Endocrine: No fatigue, No excessive thirst Integumentary: No rash, No itch Physical Exam: General Appearance: WD/WN, no apparent distress, + obese Eyes: PERRL, EOMI ENT: hearing grossly normal, pharynx normal Neck: supple, no JVD Respiratory/Chest: lungs clear, normal breath sounds, no respiratory distress, no accessory muscle use Cardiovascular: regular rate, rhythm, no murmur, normal peripheral pulses Abdomen / GI: normal bowel sounds, non tender, soft, + pertinent finding ( LLQ Ostomy functioning well, outs are soft and brown, no visible blood. ) Extremities: no calf tenderness, no pedal edema Neurologic/Psychiatric: alert, normal mood/affect, oriented x 3 Skin: normal color, warm/dry (Krystle Guerrero, HEIDY) Hospital Course H&P per Jay Billings MD History of Present Illness Source: patient The patient is a 46-year-old female who presented to [facility] emergency department on April 15, and was admitted to the hospital for treatment of pancreatitis with a lipase elevated to over 3200. Enzymes were followed to normalcy, but the patient continued to complain of abdominal discomfort. The question at that point became whether her pain was related to pancreatitis or her underlying Crohn's disease. She was transferred to [facility] today for further assessment with her testing shaking shipping Dr. Lott. Upon arrival to [facility], the patient continues to report generalized abdominal discomfort. She reports this pain is different than how she originally arrived with pain at [facility], but is unsure if it's related to her underlying Crohn's disease. She does have a colostomy in left lower quadrant, which appeared to function normally, and she has no complaints related to it's functioning. She has generalized myalgias and arthralgias, and in general doesn 't feel well. She had multiple studies performed at [facility], including a CT done prior to admission there which was normal. She had an EGD performed by gastroenterology there, and had a HIDA scan which showed gallstones but no signs of active cholecystitis. She had initially been nothing by mouth there, but her diet having gradually increasing clear liquids, and she did not notice a change in her abdominal discomfort. Physical Exam Vital Signs Date Time Temp Pulse Resp B/P (MAP) Pulse Ox O2 Delivery O2 Flow Rate FiO2 04/21/17 16:00 Room Air 04/21/17 14:00 Room Air 04/21/17 13:06 157/91 (113) 04/21/17 12:46 36.7 71 18 160/91 (114) 95 Room Air The patient is awake, well-developed and adequately nourished, alert and oriented 3, normocephalic and atraumatic, lying in bed and in no acute distress. HEENT--PERRL, EOMI, mucous membranes and oropharynx dry. Neck--supple, no JVD or bruits, thyroid normal, trachea midline, no adenopathy. Heart--normal S1 and S2, no extra beats, no murmurs, rubs or gallops. Lungs--clear bilaterally with good air movement, no respiratory distress, no accessory muscle use. Abdomen--normal bowel sounds and soft, generalized vague tenderness , nondistended, no hernias or masses, no organomegaly. Extremities--no cyanosis, clubbing or edema. There are good distal pulses b/l. Dermatologic--normal skin turgor, normal color, warm and dry, no abnormal lymph nodes, no rash. Neurologic--cranial nerves II through XII grossly intact, motor and sensory examination normal. Rheumatologic--normal range of motion, nontender, muscles and joints. Psychiatric--normal affect. Hospital Course: Persistent abdominal pain/recent treatment for pancreatitis at [facility]/history of Crohn's disease admitted and underwent Ilioscopy which was WNL, and EUS/ERCP which identified 1 15 mm gallstone and mild sludge. Pts pain improved and she tolerated a diet, she will be scheduled for outpatient cholecystectomy per GI recommendations. - CT abd/pelvis repeated here: Last was done on 03/11/17 IMPRESSION: 1. There are no acute infectious or inflammatory findings in the abdomen or pelvis. 2. There are postoperative changes from subtotal colectomy with left lower quadrant ileostomy. No bowel obstruction is seen. 3. Hepatomegaly and hepatic steatosis. 4. Nonobstructing left renal calculus. - GI on board - ilioscopy by Dr. Lott on 04/22 completed and normal/no active flare of crohns - EUS/ERCP completed on 04/24/17 showing 1 gallstone and mild sludge. There were no other acute findings per the report including no signs of CBD dilation or pancreatic involvement. Pt will need outpatient colecystectomy. Plan to follow up with GI within 1 week and get surgery on board. - Tolerating a regular diet. advised to continue a low fat diet. - Pain control with morphine 2-4 mg Q4H and toradol. Will allow tramadol for pain relief at time of discharge. - Lipase was trended during admission and was 331 at time of discharge, it peaked at 429 Hypokalemia - K+ 3.7, resolved Crohns Disease - Uses Stellara 90 mg as oupt, last dose was beginning of March Anxiety/depression - continue trazodone, fluoxetine, donepezil, bupropion. Asthma -continue Symbicort. DVT ppx: teds, scds, CODE STATUS: FULL CODE Disposition: From home, discharge home today. Total Time Spent: Greater than 30 minutes This includes examination of the patient, discharge planning, medication reconciliation, and communication with other providers. (Krystle Guerrero PA-C) ANKITA Physician Supervision Note: I interviewed and examined the patient. Discussed with Krystle Guerrero PAC and agree with findings and plan as documented in the note. Any exceptions or clarifications are listed here: None Patient with improved abdominal symptoms, did have EGD 04/22 of ileostomy no active crohns. mild elevation of lipase,tolerating po liquids,04/24/17 EUS suggests GB stones and sludge, will recommend outpt eval for elective cholecystectomy Vital signs remain stable Abdomen soft and non tender Cardiac is regular, lungs remain clear Symptom control for abdominal pain, continue PPI, outpt appointment for general surgery (Bandar Anne M.D.) Discharge Instructions Please refer to the electronic Patient Visit Report (Discharge Instructions) for additional information. (Krystle Guerrero PA-C) Follow-Up Follow up with your Primary Care Provider within 1 week. Follow up with GI within 1 week and will need scheduled with general surgery for outpatient cholecystectomy. (Krystle Guerrero PA-C)
[2017-04-25 11:05] VITALS: BP 119/77; PULSE 87; TEMP 36.6; O2SAT 94
--- NOTE | 2017-04-27 07:58 | EDITING REQUIRED CODING QUERY ---
CODING QUERY To promote full compliance with coding requirements relating to patient care, provider participation is requested in all cases of sponsorship coordinator uncertainty. Please assist us with the question(s) below: Coding Question(s): Patient transferred from [facility] with concerns for acute pancreatitis and Crohns' flare-up, presenting with epigastric abdominal pain. Crohns' ruled out. EUS/by found 1.15 mm gallstone and mild sludge. Patient discharged for Outpatient cholecystectomy. Please document the etiology of patient's abdominal pain, if known or suspected. Thanks for your help! Maximilian Salomon [facility] Physician's Response(s): cholelithiasis Principal Diagnosis: "_that condition established after study, to be chiefly responsible for occasioning the admission of the patient to the hospital for care." Co-Existing Principal Diagnosis: "_when two or more diagnoses equally meet the criteria for principal diagnosis as determined by the circumstances of admission, diagnostic work up, and/or therapy provided, and the Alphabetic Index, Tabular List, or another coding guideline does not provide sequencing direction, any one of the diagnoses may be sequenced first." "When the physician has documented what appears to be a current diagnosis in the body of the record, but has not included the diagnosis in the final diagnostic statement, the physician should be asked whether the diagnosis should be added." (Source Coding [facility] 2 QTR90. p3-4)
== END 2017-04-25 11:49 | disposition home or self-care (01) | DRG 444 ==
LOC: C.MED 12:15
PROVIDERS: ADMIT Hospitalist; ATTEND Internal Medicine
PROC: 0DJD8ZZ Inspection of Lower Intestinal Tract, Via Natural or Artificial Opening Endoscopic (ICD-10-PCS; 2017-04-22)
PROC: 0DJ08ZZ Inspection of Upper Intestinal Tract, Via Natural or Artificial Opening Endoscopic (ICD-10-PCS; principal; 2017-04-24 07:30)
PROC: BD47ZZZ Ultrasonography of Gastrointestinal Tract (ICD-10-PCS; principal; 2017-04-24 07:30)
PROC: BF4CZZZ Ultrasonography of Hepatobiliary System, All (ICD-10-PCS; principal; 2017-04-24 07:30)
DX: K80.20 Calculus of gallbladder without cholecystitis without obstruction (principal); K85.90 Acute pancreatitis without necrosis or infection, unspecified; K50.90 Crohn's disease, unspecified, without complications; F32.9 Major depressive disorder, single episode, unspecified; E03.9 Hypothyroidism, unspecified; L40.9 Psoriasis, unspecified; K76.0 Fatty (change of) liver, not elsewhere classified; Z87.891 Personal history of nicotine dependence; Z93.3 Colostomy status; E87.6 Hypokalemia; J45.909 Unspecified asthma, uncomplicated; K27.9 Peptic ulcer, site unspecified, unspecified as acute or chronic, without hemorrhage or perforation; K20.9 Esophagitis, unspecified; N20.0 Calculus of kidney

== ENCOUNTER → 2017-05-30 | Day surgery (SDC) | payer OTHER ==
[2017-05-27 09:45] VITALS: BMI 31.0
[2017-05-30] VITALS (7 sets, daily range): BP systolic 118–151; BP diastolic 76–87; PULSE 82–97; TEMP 36.5–36.8; O2SAT 95–97; Ht 154.9 cm; Wt 78.0 kg
[~2017-05-30] VITALS: Ht 154.9 cm; Wt 78.0 kg
[~2017-05-30] MED LIST changes: +ACET325T96 PO; +ATROPINE SULFATE 0.1 MG/ML 5ML SYR IV PRN; +CONRAY 60% 50 ML VIAL ONE; +DEXAMETHASONE SOD INJ 4 MG/ML VIAL ONE; +DICY10CA55 PO; +FENTANYL CITRATE INJ 50 MCG/1 ML 2 ML VIAL ONE; +GLYCOPYRROLATE INJ 0.2 MG/ML VIAL ONE; +KETOROLAC TROMETHAMINE 30 MG/ML VIAL IV. PRN; +LACTATED RINGER'S 1000ML 1,000 ML IV SCH; +LARYING-O-JET KIT (LTA) ONE; +LIDOCAINE HCL 2% 2 ML VIAL (20MG/ML) ONE; +LIDOCAINE/EPINEPHRINE 1% 20 ML VIAL ONE; +MIDAZOLAM HCL 1 MG/ML 2ML VIAL ONE; +MoRPHine SULFATE 4 MG/ML 1 ML CARP\\VIAL IV PRN; +NEOSTIGMINE METHYLSULFATE 5 MG/5 ML SYR ONE; +ONDA4TAB46 PO; +ONDANSETRON INJ 2 MG/ML 2 ML VIAL IV PRN; +ONDANSETRON INJ 2 MG/ML 2 ML VIAL ONE; +OXYC-57 PO; +OXYC-88 PO; +OXYCODONE/ACETAMINOPHEN 5-325 TAB PO PRN; +PANT40TA PO; +PROPOFOL IV EMULSION 10 MG/ML 20 ML VIAL IV ONE; +ROCURONIUM BROMIDE 10 MG/ML 5 ML VIAL ONE
--- NOTE | 2017-05-30 10:39 | Discharge Instructions ---
Discharge Instructions Date of Service May 30, 2017. Visit Reason for Visit: Cholelithiasis, Biliary Acute Pancreatitis Discharge Discharge Diagnosis / Problem: laparoscopic cholecystectomy Discharge Goals Goal(s): Decrease discomfort Activity Recommendations Activity Limitations: as noted below Lifting Limitations: no more than 10 pounds Shower/Bathe: tomorrow Driving or Machine Use: resume 3 days after discharge Anesthesia . Post Anesthesia Instructions: If you have had General Anesthesia or IV Sedation: * Do not drive today. * Resume driving when surgeon permits. * Do not make important decisions or sign legal documents today. * Call surgeon for: 1. Temperature elevations greater than 101 degrees F. 2. Uncontrollable pain. 3. Excessive bleeding. 4. Persistent nausea and vomiting. 5. Medication intolerance (nausea, vomiting or rash). * For nausea and vomiting use only clear liquids such as: tea, soda, bouillon until nausea subsides, then gradually increase diet as tolerated. * If you have any concerns or questions, call your surgeon's office. If physician is unavailable and it is an emergency, call 911 or go to the nearest emergency room. . Instructions / Follow-Up Instructions / Follow-Up Dr. Mckeon in 1 week, call [phone] for any questions or concerns Diet Recommendations Recommended Home Diet: no limitations Pending Studies Studies pending at discharge: no Medical Emergencies . Who to Call and When: Medical Emergencies: If at any time you feel your situation is an emergency, please call 911 immediately. . Non-Emergent Contact Non-Emergency issues call your: Surgeon Call Non-Emergent contact if: you have a fever, temperature is above 101.5, your pain is not controlled, wound has increased redness, you have any medication questions . . "Provider Documentation" section prepared by Nicholas Patel. . [place] Drug Monitoring Program Search Results: no issues identified
--- NOTE | 2017-05-30 11:44 | History & Physical Bridge Note ---
H&P Re-Evaluation Bridge Note: I have examined the patient, reviewed the History & Physical and in the interval since the performance of the History & Physical I have noted the following changes of clinical significance: No changes noted SO at bedside, all questions answered
--- NOTE | 2017-05-30 13:16 | DIAGNOSTIC IMAGING REPORT ---
CHOLANGIOGRAM O.R. HISTORY: Post cholecystectomy. FLUOROSCOPY TIME: 3 seconds. FINDINGS: Fluoroscopy was provided for an intraoperative cholangiogram status post cholecystectomy. Contrast was injected through the cystic duct remnant. The common bile duct is normal in course and caliber. There are no filling defects seen within the common bile duct to suggest a retained stone. Contrast extends into the small bowel. There is no intrahepatic bile duct dilatation. IMPRESSION: Fluoroscopy provided for an intraoperative cholangiogram status post cholecystectomy. No filling defects within the common bile duct. The above report was generated using voice recognition software. It may contain grammatical, syntax or spelling errors. Electronically signed by: Casey Pierce M.D. 05/30/2017 1:15 PM Dictated Date/Time: 05/30/2017 1:13 PM
--- NOTE | 2017-05-30 13:34 | [facility] Operative Report ---
Operative Report Operative Date May 30, 2017. Pre-Operative Diagnosis Cholelithiasis PANCREATITIS Post-Operative Diagnosis Same Procedure(s) Performed Laparoscopic Cholecystectomy with cholangiogram Surgeon Dr Mckeon Coater Surgeon(s) Nicholas Patel PA-C Estimated Blood Loss 5ML Findings CCC Specimens A. Gallbladder Description of Procedure OR summary dictated confirmation number [id number] I attest to the content of the Intraoperative Record and any orders documented therein. Any exceptions are noted below.
[2017-05-30] MEDS: FENTANYL CITRATE INJ 50 MCG/1 ML 2 ML VIAL IV PRN ×4 (13:42→14:06)
--- NOTE | 2017-05-30 13:54 | OPERATIVE REPORT ---
DATE OF OPERATION: 05/30/2017 PREOPERATIVE DIAGNOSIS: Chronic cholecystitis, cholelithiasis and secondary pancreatitis. POSTOPERATIVE DIAGNOSIS: Same. PROCEDURE: Laparoscopic cholecystectomy, intraoperative cholangiogram. SURGEON: Dr. Mckeon. OIL SEAL ASSEMBLER: Jerzy Patel PA-C. OPERATION AND FINDINGS: SUMMARY: The patient was brought into the operating room under general anesthesia. The patient had an ileostomy in the left lower quadrant. She has had multiple previous abdominal surgeries; therefore we left the bag on the ileostomy and actually put a plastic drape around it to get it out of the operative field and we used Betadine solution and properly draped. We isolated the operative field, mostly in a 45 degree angle from below the umbilicus to the left shoulder and routine right upper quadrant and right flank. At this point, we made an open incision about an inch above the umbilicus away from our midline incision, went into subcutaneous tissue deep into the abdomen. We were able to elevate the fascia and the abdominal wall with Talia clamps. A small opening was made, 0 Vicryl suture was used as stay suture. Under direct visualization, we entered the peritoneal cavity with a 5 mm trocar and controlled the pneumoperitoneum with the stay sutures. CO2 insufflation at this point followed by the scope. Point of entry inspected and no injury identified. There were no adhesions to the anterior abdominal wall where we were working at, we easily identified the liver and it was slightly round edged. Under direct visualization, we placed a 5 mm epigastric, two 5 mm subcostal ports, but prior to doing that we needed to free up some adhesions from the right flank area to the gallbladder area. Some of them were fine adhesions. There was 1 loop of small bowel close to the lateral aspect of the gallbladder away from any significant adherence to the gallbladder that we freed up with these fine adhesions. Gallbladder was moderately distended, placed under traction. We dissected out the yo hepatis at this time, identified the cystic duct which we clipped proximally. A small opening in the cystic duct was made. A #4 urethral catheter transversed the abdominal wall, was positioned in the cystic duct. Serial x-rays were taken which overall showed no obstruction going into the duodenum. There seemed to be some changes maybe in the distal common bile duct, probably secondary to her past pancreatitis. I did take another image which the catheter partially out of the cystic duct which visualized the distal common bile duct and partially the pancreatic duct, but overall the appears I did not see any gross filling defect. At this point, the cystic duct which was small in caliber, was doubly clipped and divided. The artery was similarly identified, doubly clipped and divided. There were some branches going into the gallbladder fossa we controlled with electrocautery. Gallbladder was then removed in the antegrade fashion leaving as much posterior peritoneum as possible to get it off the liver, placed in an Endopouch and taken out intact through the epigastric port. The patient had 1 large stone. At this point the subhepatic and suprahepatic area was checked for hemostasis and appeared quite satisfactory. We placed the camera subcostal port to visualize where we first went into the periumbilical area. There were no adhesions where we had first went in. Individual trocars were removed and lastly the umbilical trocar. Wounds were closed by placing 0 Vicryl suture for the 5 mm opening site at the umbilical area that we had cut down the rest 4-0 Monocryl. Steri-Strips applied. The procedure was tolerated well by the patient. Estimated blood loss about 5 mL. The patient was taken to recovery room in good condition. I attest to the content of the Intraoperative Record and any orders documented therein. Any exceptions are noted below. AMAND
--- NOTE | 2017-05-30 14:51 | Anesthesiology Progress Note ---
Anesthesia Post Op Note Date & Time May 30, 2017 at 14:51 Vital Signs Vital Signs Past 12 Hours Date Time Temp Pulse Resp B/P (MAP) Pulse Ox O2 Delivery O2 Flow Rate FiO2 05/30/17 14:30 36.8 96 18 126/80 96 Room Air 05/30/17 14:20 36.0 88 16 139/98 97 Nasal Cannula 2 05/30/17 14:10 88 12 134/97 97 Nasal Cannula 2 05/30/17 14:00 90 15 135/84 97 Room Air 05/30/17 13:50 89 12 146/96 99 Oxymask 10 05/30/17 13:40 92 29 165/104 98 Oxymask 10 05/30/17 13:34 36.2 96 16 142/104 97 Oxymask 10 05/30/17 11:01 36.7 82 18 151/81 (104) 95 Room Air Notes Mental Status: alert / awake / arousable, participated in evaluation Pt Amnestic to Procedure: Yes Nausea / Vomiting: adequately controlled Pain: adequately controlled Airway Patency, RR, SpO2: stable & adequate BP & HR: stable & adequate Hydration State: stable & adequate Anesthetic Complications: no major complications apparent
== END | disposition home or self-care (01) ==
LOC: C.ACU 10:32
PROVIDERS: ATTEND Surgery
DX: K80.10 Calculus of gallbladder with chronic cholecystitis without obstruction (principal); K85.90 Acute pancreatitis without necrosis or infection, unspecified; J45.909 Unspecified asthma, uncomplicated; K50.90 Crohn's disease, unspecified, without complications; Z83.3 Family history of diabetes mellitus; Z82.49 Family history of ischemic heart disease and other diseases of the circulatory system

== ENCOUNTER 2017-06-21 21:11 | Inpatient (IN) | payer OTHER ==
[~2017-06-21] VITALS: Ht 154.9 cm; Wt 76.0 kg
[~2017-06-21 21:11] MED LIST changes: -ACET325T96 PO; -ATROPINE SULFATE 0.1 MG/ML 5ML SYR IV PRN; -CONRAY 60% 50 ML VIAL ONE; -DEXAMETHASONE SOD INJ 4 MG/ML VIAL ONE; -DICY10CA55 PO; -FENTANYL CITRATE INJ 50 MCG/1 ML 2 ML VIAL ONE; -GLYCOPYRROLATE INJ 0.2 MG/ML VIAL ONE; -KETOROLAC TROMETHAMINE 30 MG/ML VIAL IV. PRN; -LACTATED RINGER'S 1000ML 1,000 ML IV SCH; -LARYING-O-JET KIT (LTA) ONE; -LIDOCAINE HCL 2% 2 ML VIAL (20MG/ML) ONE; -LIDOCAINE/EPINEPHRINE 1% 20 ML VIAL ONE; -MIDAZOLAM HCL 1 MG/ML 2ML VIAL ONE; -MoRPHine SULFATE 4 MG/ML 1 ML CARP\\VIAL IV PRN; -NEOSTIGMINE METHYLSULFATE 5 MG/5 ML SYR ONE; -ONDA4TAB46 PO; -ONDANSETRON INJ 2 MG/ML 2 ML VIAL IV PRN; -ONDANSETRON INJ 2 MG/ML 2 ML VIAL ONE; -OXYC-88 PO; -OXYCODONE/ACETAMINOPHEN 5-325 TAB PO PRN; -PANT40TA PO; -PROPOFOL IV EMULSION 10 MG/ML 20 ML VIAL IV ONE; -ROCURONIUM BROMIDE 10 MG/ML 5 ML VIAL ONE
[2017-06-22 00:31] VITALS: BP 129/81; PULSE 86; TEMP 36.8; O2SAT 97; Ht 154.9 cm; Wt 76.0 kg
[2017-06-22] MEDS ORDERED: DICY10CA55 PO (01:06)
[2017-06-22] MEDS ORDERED: ONDA4TAB46 PO (01:06)
[2017-06-22] MEDS ORDERED: PANT40TA PO (01:06)
[2017-06-22] MEDS ORDERED: ACETAMINOPHEN 325 MG TAB PO PRN (01:45)
[2017-06-22] MEDS ORDERED: MAGNESIUM HYDROXIDE SUSP 30 ML UDC PO PRN (01:45)
[2017-06-22] MEDS: MoRPHine SULFATE 2 MG/ML CARP IV PRN ×4 (02:01→22:54)
[2017-06-22] MEDS: ONDANSETRON INJ 2 MG/ML 2 ML VIAL IV PRN ×2 (02:04→23:26)
[2017-06-22] MEDS ORDERED: MoRPHine SULFATE 2 MG/ML CARP IV STA (02:10)
--- NOTE | 2017-06-22 02:12 | History and Physical ---
History & Physical Date & Time of Service: Jun 22, 2017 at 01:55 Chief Complaint: Liver Hematoma, Pancreatitis Primary Care Physician: Jose Raul Allen M.D. History of Present Illness Source: patient 47 yo F w/ hx of Chron's disease s/p ileostomy ( follows with GI, Dr. Lott) and chronic cholecystitis w/ secondary pancreatitis s/p cholecystectomy (05/30 at [facility]) with Dr. Aponte, transferred from [facility] after presenting progressive abdominal pain since she had the cholecystectomy. She describes 10/ 10 pain RUQ constant pain. She also reports nausea and diarrhea per stoma for the last few days. She denied fever, chills. At [facility],mpt was afebrile, vss , found ti have lipase elevated at 667 , LFTS unremarkable. CT abdomen was performed for stone rule out. Findings included 9x3.6cm mass consistent with hematoma adjacent to Right Hepatic lateral. Currently patient 8/10 pain, and dark watery stool from stoma. Past Medical/Surgical History Medical Problems: (1) Anxiety disorder Status: Chronic (2) Crohns disease Status: Chronic (3) Depressive disorder Status: Chronic (4) Hypothyroidism Status: Chronic (5) Psoriasis Status: Chronic Surgical Problems: (1) History of carpal tunnel release Status: Resolved (2) History of ileostomy Status: Resolved (3) History of thyroidectomy Status: Resolved Family History HTN Social History Smoking Status: Former Smoker Smokeless Tobacco Use: No Drug Use: none Marital Status: in relationship Housing status: lives with family Immunizations History of Influenza Vaccine: Unknown History of Tetanus Vaccine?: Unknown History of Pneumococcal: Unknown History of Hepatitis B Vaccine: Unknown Multi-Drug Resistant Organisms History of MDRO: No Allergies Coded Allergies: No Known Allergies (Unverified , 05/30/17) Home Medications Scheduled Budesonide/Formoterol Fumarate (Symbicort 80/4.5 Inhaler), 2 PUFFS INH BID Bupropion Hcl (Bupropion Hcl Er), 1 TAB PO BID Cholecalciferol (Vitamin D 1000 Unit), 6,000 INTER.UNIT PO DAILY Dicyclomine Hcl (Bentyl), 10 MG PO QID Donepezil Hydrochloride (Aricept), 1 TAB PO am Fluoxetine (Prozac), 20 MG PO TID Pantoprazole (Protonix), 40 MG PO DAILY Trazodone Hcl (Desyrel), 150 MG PO QPM Ustekinumab (Stelara), 90 MG IM [id number] [vitamin b12 inj.], 1 SYR SQ MONTHLY Scheduled PRN Ondansetron Hcl (Zofran), 4 MG PO Q8 PRN for Nausea Oxycodone/Acetaminophen 5MG/325MG (Percocet 5MG/325MG), 1-2 TABLETS PO Q4H PRN for Pain Review of Systems Constitutional: No fever, No chills, No weakness Respiratory: No cough, No sputum, No shortness of breath Cardiovascular: No chest pain, No palpitations Abdomen: + pain (RUQ), + nausea, + diarrhea, No vomiting Genitourinary - Female: No dysuria, No urinary frequency, No urinary urgency Integumentary: No rash, No itch Physical Exam Vital Signs Date Time Temp Pulse Resp B/P (MAP) Pulse Ox O2 Delivery O2 Flow Rate FiO2 06/22/17 00:31 36.8 86 18 129/81 (97) 97 Room Air General Appearance: WD/WN, + mild distress Head: normocephalic, atraumatic Eyes: normal inspection, PERRL, EOMI, sclerae normal Neck: supple Respiratory/Chest: chest non-tender, lungs clear, normal breath sounds Cardiovascular: regular rate, rhythm, no edema, no murmur Abdomen/GI: normal bowel sounds, + tenderness (RUQ), + pertinent finding ( abdomen non-distended, no rebound no rigidity, stoma in place) Neurologic/Psych: alert, normal mood/affect, oriented x 3 Skin: normal color, warm/dry Diagnostics Laboratory Results Results Past 24 Hours Test 06/22/17 01:32 06/22/17 01:57 Range/Units Microbiology Results 06/22/17 C.difficile Toxin B Gene (PCR), Ordered Pending Impression Assessment and Plan 47 yo F w/ hx of Crohn's disease s/p ileostomy and chronic cholecystitis w/ secondary pancreatitis s/p cholecystectomy (05/30/17 at [facility]), transferred from [facility] after presenting progressive abdominal pain , dark colored diarrhea, nausea. Prior to arrival Normal White ct (10.7) , elevated Lipase 667, LFT unremarkable Abdominal Pain: post-surgical vs, pancreatitis vs choledocholithiasis vs. Crohn's disease flare up - CT abdomen ( outside hospital 06/21/17): 9 x 3.6 cm mass consistent with hematoma adjacent to Right lateral Liver - NPO - Prior to arrival: WBC 10.7 , LFT AST 20 ALT 40 Alk Phos 110 Lipase 667 -F/u repeat labs -Pain control: morphine prn 2mg q4h -Consult GI -Consult General Surgery Diarrhea - C Diff tox ordered - Fecal occult ordered Nausea - PRN Zofran Hx of Crohn's Disease - possible contributor to pain, diarrhea - pt remains npo until seen by Surgery Hyperthyroidism - s/p thyroidectomy DVT prophylaxis: SCD's Full code Attending Addendum: I have physically seen and examined this patient, have directed the resident's medical activities, and agree with the H&P as noted above with the following exceptions as noted. The patient is awake, alert and oriented 3, well-developed and well-nourished , normocephalic and atraumatic, lying in bed and in mild distress. HEENT--PERRL, EOMI, mucous membranes and oropharynx dry. Neck--supple, no JVD or bruits, thyroid normal, trachea midline, no adenopathy. Heart--normal S1 and S2, no extra beats, no murmurs, rubs or gallops. Lungs--clear bilaterally with good air movement, no respiratory distress, no accessory muscle use. Abdomen--normal bowel sounds and soft, right upper quadrant tenderness. Nondistended. Stoma in place. Extremities--no cyanosis, clubbing or edema. There are good distal pulses b/l. Dermatologic--normal skin turgor, normal color, warm and dry, no abnormal lymph nodes, no rash. Neurologic--cranial nerves II through XII grossly intact. Rheumatologic--normal range of motion, nontender, muscles and joints. Psychiatric--normal affect. Assessment and Plan: Abdominal pain multifactorial/pancreatitis/possible Crohn's flare/postsurgical hematoma liver-- Admit to the medical surgical floor. Nothing by mouth Normal saline with KCl 20 mEq 100 mils per hour. CBC with differential, chemistry profile, magnesium level. Morphine 2 mg IV every 4 hours when necessary. Zofran 4 mg IV every 6 hours when necessary. Empiric Zosyn 3.375 mg IV every 8 hours. Consult gastroenterology Consult Gen. surgery. GERD--change Protonix from 40 mg by mouth daily to IV daily. Asthma-- Continue Symbicort. Anxiety-- while nothing by mouth, hold bupropion, fluoxetine, trazodone. Dementia-- While nothing by mouth hold donepezil. Level of Care Med/Surg Advanced Directives Existing Advance Directive: No Existing Living Will: No Existing Power of Distillery Supervisor: No Resuscitation Status FULL RESUSCITATION VTE Prophylaxis VTE Risk Assessment Done? Y/N: Yes Risk Level: Moderate Given or contraindicated: SCD's Social Service Consult None Apply
[2017-06-22 07:23] LABS: BASO % 0.4 %; BASO ABS # 0.04 K/uL (0-0.2); COMPLETE YES; EOS % 2.2 %; HEMATOCRIT 37.8 % (37-47); IG% 0.2 %; LYMPH % 17.9 %; LYMPH ABS # 1.76 K/uL (1.2-3.4); MEAN CELL VOLUME 85.9 fL (80-100); MEAN CORPUSCULAR HEMOGLOBIN 26.6 pg (25-34); MEAN PLATELET VOLUME 9.1 fL (7.4-10.4); MONO % 4.8 %; NEUT % 74.5 %; PLATELET COUNT 413 K/uL (130-400); WHITE BLOOD COUNT 9.81 K/uL (4.8-10.8)
[2017-06-22 07:29] VITALS: BP 116/53; PULSE 67; TEMP 36.7; O2SAT 98
[2017-06-22 07:41] LABS: PARTIAL THROMBOPLASTIN RATIO 1.1; PROTHROMBIN TIME (PATIENT) 10.8 SECONDS (9.0-12.0)
[2017-06-22 07:55] LABS: CALCIUM 9.2 mg/dl (8.5-10.1); CREATININE 1.2 mg/dl (0.60-1.20); POTASSIUM 3.4 mmol/L (3.5-5.1)
[2017-06-22 07:58] LABS: ALB/GLOB RATIO 0.8 (0.9-2)
--- NOTE | 2017-06-22 08:02 | Pre-Operative Consultation ---
History General Date of Service: Jun 22, 2017. Stated Complaint: abdominal pain HPI HPI: The patient is a 47 year old female being seen at the request of Dr. Sterling for abdominal pain. She underwent a laparoscopic cholecystectomy with Dr. Mckeon on 05/30/17. Since that time, she has noticed 10/10 abdominal pain in her right abdomen, worst in the RUQ with associated nausea and diarrhea. This has been constant. She saw Dr. Mckeon in postop. Surgery was originally done for gallstone pancreatitis. No jaundice noted currently. At [facility], a CT scan showed a 3x8 cm fluid collection around right liver c/w hematoma. No fevers. Hgb level is 11 currently. Historian: patient Risk Assessment Daily beta nel use?: No Medical & Surgical History Past Medical History: Past Medical/Surgical History Medical Problems: (1) Anxiety disorder Status: Chronic (2) Crohns disease Status: Chronic (3) Depressive disorder Status: Chronic (4) Hypothyroidism Status: Chronic (5) Psoriasis Status: Chronic Past Surgical History: Surgical Problems: (1) History of carpal tunnel release Status: Resolved (2) History of ileostomy Status: Resolved (3) History of thyroidectomy Status: Resolved Family History Family History: hypertension Social History Hx Tobacco Use In Past Year?: No Smoking Status: Former Smoker Drug Use: none Marital status: in relationship Housing status: lives with family Immunizations Have You Had Influenza Vaccine: Unknown Have You Had Tetanus Vaccine: Unknown History of Pneumococcal: Unknown History Hepatitis B Vaccine: Unknown Allergies Allergies: Coded Allergies: No Known Allergies (Unverified , 05/30/17) Medications Current Inpatient Medications Current Inpatient Medications Medications (Trade) Dose Ordered Sig/Sd Route Start Time Stop Time Status Last Admin Dose Admin Acetaminophen (Tylenol Tab) 650 mg Q4H PRN PO 06/22/17 01:45 07/22/17 01:44 Magnesium Hydroxide (Milk Of Magnesia Susp) 30 ml Q6H PRN PO 06/22/17 01:45 07/22/17 01:44 Ondansetron HCl (Zofran Inj) 4 mg Q6H PRN IV 06/22/17 01:45 07/22/17 01:44 06/22/17 02:04 4 MG Morphine Sulfate (MoRPHine SULFATE INJ) 2 mg Q4 PRN IV 06/22/17 01:45 07/06/17 01:44 06/22/17 06:18 2 MG Review of Systems Review of Systems Review of Systems most notable for the GI symptoms. Otherwise OK. Physical Exam Physical Exam General Appearance: + WD/WN, No distress Ears, Nose, Throat: + normal ENT inspection Respiratory: No accessory muscle use Cardiovascular: No JVD Abdomen: + tenderness (over entire right abdomen with mild guarding), No abnormal bowel sounds, No organomegaly Neurologic/Psychiatric: No abnormal gear and spline grinder II-XII Skin Characteristics: No abnormal color, No cyanosis Diagnostics Labs Labs Results Past 24 Hours Test 06/22/17 04:44 06/22/17 06:42 Range/Units White Blood Count 9.81 4.8-10.8 K/uL Red Blood Count 4.40 4.2-5.4 M/uL Hemoglobin 11.7 12.0-16.0 g/dL Hematocrit 37.8 37-47 % Mean Corpuscular Volume 85.9 80-100 fL Mean Corpuscular Hemoglobin 26.6 25-34 pg Mean Corpuscular Hemoglobin Concent 31.0 32-36 g/dl Platelet Count 413 130-400 K/uL Mean Platelet Volume 9.1 7.4-10.4 fL Neutrophils (%) (Auto) 74.5 % Lymphocytes (%) (Auto) 17.9 % Monocytes (%) (Auto) 4.8 % Eosinophils (%) (Auto) 2.2 % Basophils (%) (Auto) 0.4 % Neutrophils # (Auto) 7.30 1.4-6.5 K/uL Lymphocytes # (Auto) 1.76 1.2-3.4 K/uL Monocytes # (Auto) 0.47 0.11-0.59 K/uL Eosinophils # (Auto) 0.22 0-0.5 K/uL Basophils # (Auto) 0.04 0-0.2 K/uL RDW Standard Deviation 45.7 36.4-46.3 fL RDW Coefficient of Variation 14.5 11.5-14.5 % Immature Granulocyte % (Auto) 0.2 % Immature Granulocyte # (Auto) 0.02 0.00-0.02 K/uL Prothrombin Time 10.8 9.0-12.0 SECONDS Prothromb Time International Ratio 1.0 0.9-1.1 Activated Partial Thromboplast Time 28.0 21.0-31.0 SECONDS Partial Thromboplastin Ratio 1.1 Microbiology Results 06/22/17 C.difficile Toxin B Gene (PCR), Ordered Pending Lab Interpretation Lab Interpretation: labs were reviewed (at [facility], lipase was in the 600s) Diagnostic Radiology Diagnostic Radiology CT scan from [facility] shows small right sided hematoma around liver Impression Assessment and Plan Assessment and Plan 47 yr old woman with persistent pain and nausea since her laparoscopic cholecystectomy, out of proportion to what would be expected for a hematoma. Explained that there is no evidence of continued bleeding and as such, I would not recommend drainage (i.e laparoscopic drainage). ? pain due to persistent or recurrent pancreatitis - labs from today are pending. It is OK for her to eat as she will not be undergoing a surgical procedure. Agree with GI consult -? consider endoscopic ultrasound. Dr. Mckeon will be back on Saturday, I believe.
[2017-06-22] MEDS ORDERED: OXYCODONE/ACETAMINOPHEN 5-325 TAB PO ONE (13:24)
[2017-06-22 14:56] VITALS: BP 116/75; PULSE 95; TEMP 36.3; O2SAT 96
--- NOTE | 2017-06-22 15:11 | Progress Note ---
Progress Note Date of Service Jun 22, 2017. (Nenita Art MD) Progress Note Pt admitted overnight 06/22/17 Reviewed again on rounds. Has persistent abd pain. Allowed to eat since is not for surgery today, will await until saturday. Feels pain medications work then fade. O/E Gen: Awake, alert, oriented CVS: RRR, No MRG Lungs: CTAB Abd: Tender to palpation RUQ & Epigastrium. Normal bowel sounds. Ext: No edema A: s/p lap cholecystectomy with persistent abdominal pain -- ddx from hematoma versus other postop pain. P: seen by surgery today, will await GI recommendations. Pt eating currently. For pain, will add Percocet PO and then use Morphine IV for backup. Pt advised to tell nurses if this is not sufficient, then would increase frequency of morphine IV. (Nenita Art MD) Resident Physician Supervision Note: I interviewed and examined the patient. Discussed with Dr. Art and agree with findings and plan as documented in the note. Any exceptions or clarifications are listed here: None Documented By: Lex Kenyon pain tolerable but morphine wears off too soon. d/w dr calabrese, input appreciated vitals noted nad breathing unlabored no pallor or icterus abdominal pain - ongoing w/u for etiology, surgery and GI thoughts appreciated. may have to also investigate non GI (?MSK, neuropathic, other) causes of abdominal pain - work stepwise w ddx's. pain control and supportive care as well (Lex Kenyon, D.O.) Resident Tracking Resident Involvement: Resident Care Provided Care Provided: Adult Hospital Medicine (Nenita Art MD)
[2017-06-22] MEDS: PANTOprazole SOD 40 MG TAB PO SCH ×2 (16:10→21:28)
--- NOTE | 2017-06-22 16:26 | Gastrointestinal Consultation ---
Gastrointestinal Consultation Date of Consultation: Jun 22, 2017 Attending Physician: Lex Kenyon Consulting Physician: Aries Sahu Reason for Consultation: abd pain History of Present Illness Patient is a 47 year old female with CC of abdominal pain. On review of outpt and inpt EMR she has long history of ileocolonic crohns disease sine age 19 and is s/p subtotal colectomy with ileostomy. She is on Stelara by dermatology and this can be used for crohns also and was increased to 90 mg every 12 weeks 2016 for flaring crohns. She was admitted 04/2017 to [facility] for abd pain, nausea, diarrhea and had lipase 3223 with trigs [address] did not show any pancreatitis. HIDA was neg, MRCP stone in GB, EGD erosive esophagitis and gastritis. Symptoms progressed so she was transferred to [facility] and had EUS showing stone in GB and 4 mm CBD. Ilescopy to 30 cm was normal. She has outpt rocco with IOC (nothing in duct per radiology interpretation) 05/30/17 and since then complains that pain now is in RUQ with worsening diarrhea and nausea. About 3 days captain room service had medium red blood in ostomy. Yesterday seen in the office but then went to [facility] ER. At ER noted to have elevate lipase 667, nl LFTs and CT scan showing 9 x 3.6 cm R hepatic hematoma but no mention of pancreatitis on the non contast study report I reviewed. . Pt transferred to [facility] and is admittted. Labs in office also showed elevated lipase 860, amylase 272, nl LFTS, Hgb 12.4. Hgb at [facility] 11.5. It should be noted also that CT scan at [facility] 04/10/17 and at [facility] 04/21/17 did not mention pancreatitis. Family History non contributory Social History Smoking Status: Former Smoker Drug Use: none Marital Status: in relationship Allergies Coded Allergies: No Known Allergies (Unverified , 05/30/17) Current Medications Home Meds and Scripts Medications Dose Route/Sig Max Daily Dose Days Date Category Zofran (Ondansetron HCl) 4 Mg Tab 4 Mg PO Q8 PRN 06/22/17 Reported Protonix (Pantoprazole Sodium) 40 Mg Tab 40 Mg PO DAILY 06/22/17 Reported Bentyl (Dicyclomine Hcl) 10 Mg Cap 10 Mg PO QID 06/22/17 Reported Percocet 5MG/325MG (Oxycodone/Acetaminophen) Tab 1-2 Tablets PO Q4H PRN 05/30/17 Rx Symbicort 80/4.5 Inhaler (Budesonide/Formoterol Fumarate) Aero 2 Puffs INH BID 01/18/17 Reported Vitamin D 1000 Unit (Cholecalciferol) 1,000 Unit Cap 6,000 Inter.unit PO DAILY 12/18/16 Reported [vitamin b12 inj.] 1 Syr SQ MONTHLY 12/18/16 Reported Desyrel (Trazodone Hcl) 150 Mg Tab 150 Mg PO QPM 12/18/16 Reported Stelara (Ustekinumab) 90 Mg/Ml Inj 90 Mg IM [id number] 12/18/16 Reported Aricept (Donepezil Hydrochloride) 10 Mg Tab 1 Tab PO AM 30 02/20/16 Reported Prozac (Fluoxetine HCl) 20 Mg Cap 20 Mg PO TID 02/20/16 Reported Bupropion Hcl Er (Bupropion Hcl) 150 Mg Tab 1 Tab PO BID 12/14/13 Reported Review of Systems Respiratory: No shortness of breath Cardiac: No chest pain Physical Exam Date Time Temp Pulse Resp B/P (MAP) Pulse Ox O2 Delivery O2 Flow Rate FiO2 06/22/17 14:56 36.3 95 16 116/75 (89) 96 Room Air 06/22/17 07:40 Room Air 06/22/17 07:29 36.7 67 17 116/53 (74) 98 Room Air 06/22/17 00:31 36.8 86 18 129/81 97 Room Air 06/22/17 00:31 97 Room Air 06/22/17 00:31 36.8 86 18 129/81 (97) 97 Room Air General Appearance: WD/WN, no apparent distress Eyes: normal inspection Neck: supple Respiratory/Chest: lungs clear, no respiratory distress Cardiovascular: regular rate, rhythm, no edema Abdomen: normal bowel sounds, soft, no organomegaly, no pulsatile mass, + tenderness (some guarding RUQ no rebound) Neurologic/Psych: manager adobe II-XII nml as tested, no motor/sensory deficits, alert, oriented x 3 Skin: normal color, no jaundice Laboratory Results Last 24 Hours Test 06/22/17 06:42 9/9/17 15:00 White Blood Count 9.81 K/uL Red Blood Count 4.40 M/uL Hemoglobin 11.7 g/dL Hematocrit 37.8 % Mean Corpuscular Volume 85.9 fL Mean Corpuscular Hemoglobin 26.6 pg Mean Corpuscular Hemoglobin Concent 31.0 g/dl Platelet Count 413 K/uL Mean Platelet Volume 9.1 fL Neutrophils (%) (Auto) 74.5 % Lymphocytes (%) (Auto) 17.9 % Monocytes (%) (Auto) 4.8 % Eosinophils (%) (Auto) 2.2 % Basophils (%) (Auto) 0.4 % Neutrophils # (Auto) 7.30 K/uL Lymphocytes # (Auto) 1.76 K/uL Monocytes # (Auto) 0.47 K/uL Eosinophils # (Auto) 0.22 K/uL Basophils # (Auto) 0.04 K/uL RDW Standard Deviation 45.7 fL RDW Coefficient of Variation 14.5 % Immature Granulocyte % (Auto) 0.2 % Immature Granulocyte # (Auto) 0.02 K/uL Prothrombin Time 10.8 SECONDS Prothromb Time International Ratio 1.0 Activated Partial Thromboplast Time 28.0 SECONDS Partial Thromboplastin Ratio 1.1 Sodium Level 135 mmol/L Potassium Level 3.4 mmol/L Chloride Level 106 mmol/L Carbon Dioxide Level 20 mmol/L Anion Gap 9.0 mmol/L Blood Urea Nitrogen 29 mg/dl Creatinine 1.20 mg/dl Est Creatinine Clear Calc Drug Dose 52.9 ml/min Estimated GFR () 61.5 Estimated GFR (Non- 53.0 BUN/Creatinine Ratio 24.0 Random Glucose 91 mg/dl Calcium Level 9.2 mg/dl Total Bilirubin 0.5 mg/dl Aspartate Amino Transf (AST/SGOT) 45 U/L Alanine Aminotransferase (ALT/SGPT) 47 U/L Alkaline Phosphatase 115 U/L Total Protein 7.9 gm/dl Albumin 3.4 gm/dl Globulin 4.5 gm/dl Albumin/Globulin Ratio 0.8 Lipase 1173 U/L Stool Occult Blood POSITIVE Impression Abdominal pain---differential includes the hematoma but per surgery pain seems out of proportion, pancreatitis but none seen on CT, PUD (hx of erosive esophagitis and gastritis), ischemic bowel (no mention on CT). None of the differential fits well so discussed with DR Kostas about thinking about musculoskeletal issues like radiculopathy. I will check cortisol level also to look for addisons elevated lipase/amylase--this has been persistently elevated but no radiologic correlation--could be a smoldering chronic pancreatisi but EUS 04/2017 did not confirm pancreatitis---check IgG4 for autoimmune pancreaitis. Check triglyceride level. Consider repaeat imaging of pancreas with MRCP or EUS. If lipase continues to rise then back off of solid diet. Diarrhea-- CDiff--pending--if negative consider repeat ileoscopy PUD--erosive esophagitis and gastritis on EGD at [facility] 04/2017 and has not been on PPI as outpt---order Protonix bid. heme pos stools --for PUD as cause will use protonix bid, if from crohns then can see on ileoscopy if done nausea--secondary to abd pain
[2017-06-22] MEDS: OXYCODONE/ACETAMINOPHEN 5-325 TAB PO PRN (18:12)
[2017-06-22 22:58] VITALS: BP 123/78; PULSE 84; TEMP 36.5; O2SAT 97
[2017-06-23] MEDS: OXYCODONE/ACETAMINOPHEN 5-325 TAB PO PRN ×5 (00:35→23:21)
[2017-06-23 07:02] VITALS: BP 101/69; PULSE 87; TEMP 36.4; O2SAT 97
[2017-06-23] MEDS: MoRPHine SULFATE 2 MG/ML CARP IV PRN ×2 (07:39→16:02)
[2017-06-23 07:49] LABS: BASO % 0.5 %; BASO ABS # 0.04 K/uL (0-0.2); COMPLETE YES; EOS % 2.3 %; HEMATOCRIT 35.4 % (37-47); IG% 0.2 %; LYMPH % 18.8 %; LYMPH ABS # 1.54 K/uL (1.2-3.4); MEAN CELL VOLUME 85.3 fL (80-100); MEAN CORPUSCULAR HEMOGLOBIN 27.5 pg (25-34); MEAN CORPUSCULAR HGB CONC 32.2 g/dl (32-36); MEAN PLATELET VOLUME 8.9 fL (7.4-10.4); MONO % 5.7 %; NEUT % 72.5 %; PLATELET COUNT 349 K/uL (130-400); RED BLOOD COUNT 4.15 M/uL (4.2-5.4); WHITE BLOOD COUNT 8.18 K/uL (4.8-10.8)
[2017-06-23 08:28] LABS: BUN/CREATININE RATIO 19.8 (10-20); CALCIUM 8.5 mg/dl (8.5-10.1); CREATININE 1.2 mg/dl (0.60-1.20); POTASSIUM 3.4 mmol/L (3.5-5.1)
[2017-06-23 08:31] LABS: ALB/GLOB RATIO 0.8 (0.9-2)
[2017-06-23] MEDS: SENNA 8.6 MG TAB PO SCH (09:00)
[2017-06-23] MEDS: PANTOprazole SOD 40 MG TAB PO SCH ×2 (09:02→21:24)
[2017-06-23] MEDS: POTASSIUM CHLORIDE 20 MEQ TABCR PO SCH ×2 (09:03→19:14)
--- NOTE | 2017-06-23 09:29 | Family Medicine Progress Note ---
Progress Note Date of Service Jun 23, 2017. Subjective Pt evaluation today including: conversation w/ patient, physical exam Voiding: no voiding problems, no incontinence Mrs Isidro felt ok today, reported persistent pain overnight. Opioid medications are helpful but are masking the pain, then it returns. She has good stool output. Had some vegetables yesterday which made more formed stool than usual. Aware that she had a heme positive stool as well. Constitutional: No fever, No chills ENT: No hearing loss Respiratory: No cough, No sputum Abdomen: + pain, + nausea, No vomiting All Other Systems: Reviewed and Negative Medications Current Inpatient Medications Medications (Trade) Dose Ordered Sig/Sd Route Start Time Stop Time Status Last Admin Dose Admin Acetaminophen (Tylenol Tab) 650 mg Q4H PRN PO 06/22/17 01:45 07/22/17 01:44 Magnesium Hydroxide (Milk Of Magnesia Susp) 30 ml Q6H PRN PO 06/22/17 01:45 07/22/17 01:44 Ondansetron HCl (Zofran Inj) 4 mg Q6H PRN IV 06/22/17 01:45 07/22/17 01:44 06/22/17 23:26 4 MG Morphine Sulfate (MoRPHine SULFATE INJ) 2 mg Q4 PRN IV 06/22/17 01:45 07/06/17 01:44 06/23/17 07:39 2 MG Oxycodone/ Acetaminophen (Percocet 5-325mg Tab) 1 tab Q4H PRN PO 06/22/17 13:30 07/06/17 13:29 06/23/17 05:51 1 TAB Pantoprazole Sodium (Protonix Tab) 40 mg BID PO 06/22/17 16:00 07/22/17 15:59 06/23/17 09:02 40 MG Senna (Senokot Tab) 8.6 mg QAM PO 06/23/17 09:00 07/23/17 08:59 Potassium Chloride (Klor-Con Tab) 40 meq BIDM PO 06/23/17 08:30 07/23/17 08:29 06/23/17 09:03 40 MEQ Objective Vital Signs Date Time Temp Pulse Resp B/P (MAP) Pulse Ox O2 Delivery O2 Flow Rate FiO2 06/23/17 07:20 Room Air 06/23/17 07:02 36.4 87 16 101/69 (80) 97 Room Air 06/22/17 23:15 Room Air 06/22/17 22:58 36.5 84 16 123/78 (93) 97 Room Air 06/22/17 15:15 Room Air 06/22/17 14:56 36.3 95 16 116/75 (89) 96 Room Air Physical Exam General Appearance: WD/WN, + mild distress Eyes: normal inspection, PERRL ENT: hearing grossly normal Neck: supple, no JVD Respiratory/Chest: lungs clear, normal breath sounds, no respiratory distress Cardiovascular: regular rate, rhythm, no murmur Abdomen: soft, + guarding, + tenderness (epigastric tenderness), + pertinent finding (stoma, with good green / brown stool output) Extremities: non-tender, no pedal edema Neurologic/Psychiatric: alert, normal mood/affect, oriented x 3 Skin: no rash Laboratory Results Last 24 Hours Test 06/22/17 15:00 06/23/17 07:28 Stool Occult Blood POSITIVE White Blood Count 8.18 K/uL Red Blood Count 4.15 M/uL Hemoglobin 11.4 g/dL Hematocrit 35.4 % Mean Corpuscular Volume 85.3 fL Mean Corpuscular Hemoglobin 27.5 pg Mean Corpuscular Hemoglobin Concent 32.2 g/dl Platelet Count 349 K/uL Mean Platelet Volume 8.9 fL Neutrophils (%) (Auto) 72.5 % Lymphocytes (%) (Auto) 18.8 % Monocytes (%) (Auto) 5.7 % Eosinophils (%) (Auto) 2.3 % Basophils (%) (Auto) 0.5 % Neutrophils # (Auto) 5.92 K/uL Lymphocytes # (Auto) 1.54 K/uL Monocytes # (Auto) 0.47 K/uL Eosinophils # (Auto) 0.19 K/uL Basophils # (Auto) 0.04 K/uL RDW Standard Deviation 45.6 fL RDW Coefficient of Variation 14.5 % Immature Granulocyte % (Auto) 0.2 % Immature Granulocyte # (Auto) 0.02 K/uL Sodium Level 135 mmol/L Potassium Level 3.4 mmol/L Chloride Level 104 mmol/L Carbon Dioxide Level 20 mmol/L Anion Gap 11.0 mmol/L Blood Urea Nitrogen 24 mg/dl Creatinine 1.20 mg/dl Est Creatinine Clear Calc Drug Dose 52.9 ml/min Estimated GFR () 61.5 Estimated GFR (Non- 53.0 BUN/Creatinine Ratio 19.8 Random Glucose 97 mg/dl Calcium Level 8.5 mg/dl Total Bilirubin 0.3 mg/dl Aspartate Amino Transf (AST/SGOT) 28 U/L Alanine Aminotransferase (ALT/SGPT) 40 U/L Alkaline Phosphatase 108 U/L Total Protein 7.2 gm/dl Albumin 3.1 gm/dl Globulin 4.1 gm/dl Albumin/Globulin Ratio 0.8 Triglycerides Level 390 mg/dl Lipase 630 U/L Cortisol AM Sample 13.37 mcg/dl Assessment and Plan 47 yo F with Crohn's, on Stelara, s/p ileostomy, s/p cholecystectomy, and s/p L lobe thyroidectomy who presents with long history of abdominal pain, with elevated lipase, nausea, and pain. Abdominal pain, unclear etiology - Appreciate GI and Gen Surg recommendations. - Placed pt back on full liquid diet again today. - For pain, she has Percocet 5-325 as well as Morphine 2mg IV q4h PRN for more severe pain. Elevated lipase - ?Could this be a manifestation of Crohn's - Will continue to trend Lipase - Will repeat MRCP today Heme positive stools: - Protonix restarted Nausea: - Continue Zofran, will add Phenergan if necessary Depression: - Unclear dosing of home dose of Prozac (20mg TID) - will clarify, and for now continue 20mg daily - Will continue Aricept - though unclear of who initiated this as well - Will continue Trazodone and Bupoprion Hx of Goitre, s/p L thyroidectomy - Unclear of current thyroid function, will check a TSH VTE: SCDs. Dispo: Remains on Med/Surg, workup still pending Code status: FULL Resident Physician Supervision Note: I interviewed and examined the patient. Discussed with Dr. Art and agree with findings and plan as documented in the note. Any exceptions or clarifications are listed here: None Documented By: Lex Kenyon abdominal pain about the same. d/w GI input appreciated. no other new HPI or ROS otherwise except for as above vitals noted nad breathing unlabored no pallor or icterus. epigastric ttp with only voluntary guarding. no noted trigger points in anterior abdominal fascia abdominal pain / elevated lipase -continue to pursue both pancreatobiliary pathology and keep ddx wide in case she is a "chornically elevated lipase" carrier with different etiology for pain -MRCP. if negative would image Tspine next re ??thoracic radiculopathy -ongoing GI w/u as well otherwise as above Resident Tracking Resident Involvement: Resident Care Provided Care Provided: Adult Hospital Medicine
--- NOTE | 2017-06-23 09:37 | Surgery Progress Note ---
Surgery Progress Note Date of Service Jun 23, 2017. Subjective Pain is managed on combination of PO and IV narcotics. No vomiting but still feels nauseated. Able to tolerate diet with no change in abdominal pain with eating. Ostomy still functioning. Objective Vital Signs: Date Time Temp Pulse Resp B/P (MAP) Pulse Ox O2 Delivery O2 Flow Rate FiO2 06/23/17 07:20 Room Air 06/23/17 07:02 36.4 87 16 101/69 (80) 97 Room Air 06/22/17 23:15 Room Air 06/22/17 22:58 36.5 84 16 123/78 (93) 97 Room Air 06/22/17 15:15 Room Air 06/22/17 14:56 36.3 95 16 116/75 (89) 96 Room Air General Appearance: WD/WN, no apparent distress Head: normocephalic, atraumatic Respiratory/Chest: normal breath sounds, no accessory muscle use Cardiovascular: regular rate, rhythm Abdomen: normal bowel sounds, soft, + tenderness (epigastrium and RUQ with guarding) Extremities: no pedal edema Laboratory Results: Results Past 24 Hours Test 06/22/17 15:00 06/23/17 07:28 Range/Units Stool Occult Blood POSITIVE NEGATIVE White Blood Count 8.18 4.8-10.8 K/uL Red Blood Count 4.15 4.2-5.4 M/uL Hemoglobin 11.4 12.0-16.0 g/dL Hematocrit 35.4 37-47 % Mean Corpuscular Volume 85.3 80-100 fL Mean Corpuscular Hemoglobin 27.5 25-34 pg Mean Corpuscular Hemoglobin Concent 32.2 32-36 g/dl Platelet Count 349 130-400 K/uL Mean Platelet Volume 8.9 7.4-10.4 fL Neutrophils (%) (Auto) 72.5 % Lymphocytes (%) (Auto) 18.8 % Monocytes (%) (Auto) 5.7 % Eosinophils (%) (Auto) 2.3 % Basophils (%) (Auto) 0.5 % Neutrophils # (Auto) 5.92 1.4-6.5 K/uL Lymphocytes # (Auto) 1.54 1.2-3.4 K/uL Monocytes # (Auto) 0.47 0.11-0.59 K/uL Eosinophils # (Auto) 0.19 0-0.5 K/uL Basophils # (Auto) 0.04 0-0.2 K/uL RDW Standard Deviation 45.6 36.4-46.3 fL RDW Coefficient of Variation 14.5 11.5-14.5 % Immature Granulocyte % (Auto) 0.2 % Immature Granulocyte # (Auto) 0.02 0.00-0.02 K/uL Sodium Level 135 136-145 mmol/L Potassium Level 3.4 3.5-5.1 mmol/L Chloride Level 104 98-107 mmol/L Carbon Dioxide Level 20 21-32 mmol/L Anion Gap 11.0 3-11 mmol/L Blood Urea Nitrogen 24 7-18 mg/dl Creatinine 1.20 0.60-1.20 mg/dl Est Creatinine Clear Calc Drug Dose 52.9 ml/min Estimated GFR () 61.5 Estimated GFR (Non- 53.0 BUN/Creatinine Ratio 19.8 10-20 Random Glucose 97 70-99 mg/dl Calcium Level 8.5 8.5-10.1 mg/dl Total Bilirubin 0.3 0.2-1 mg/dl Aspartate Amino Transf (AST/SGOT) 28 15-37 U/L Alanine Aminotransferase (ALT/SGPT) 40 12-78 U/L Alkaline Phosphatase 108 45-117 U/L Total Protein 7.2 6.4-8.2 gm/dl Albumin 3.1 3.4-5.0 gm/dl Globulin 4.1 2.5-4.0 gm/dl Albumin/Globulin Ratio 0.8 0.9-2 Triglycerides Level 390 0-150 mg/dl Lipase 630 73-393 U/L Cortisol AM Sample 13.37 4.30-22.40 mcg/dl Microbiology Results 06/22/17 C.difficile Toxin B Gene (PCR) - Final, Complete No C. difficile toxin B gene detected Assessment & Plan 47yr old woman s/p lap rocco for gallstone pancreatitis with small postop hematoma unlikely to account fully for her significant abdominal pain/ nausea. Only lab abnormalities are mildly elevated AST and lipase in the 600s. No CT evidence of pancreatitis on JU[facility] Teddy CT. Will defer management to GI. Dr. Mckeon to return tomorrow - will sign pt out to him.
[2017-06-23] MEDS ORDERED: DONEPEZIL HCL 10 MG TAB PO ONE (09:39)
[2017-06-23] MEDS: DICYCLOMINE HCL 10 MG CAP PO SCH ×3 (11:24→21:24)
[2017-06-23 15:11] VITALS: BP 115/76; PULSE 88; TEMP 36.7; O2SAT 96
--- NOTE | 2017-06-23 15:40 | Gastroenterology Progress Note ---
Progress Note Date of Service: Jun 23, 2017 Subjective Pt evaluation today including: conversation w/ patient, physical exam, chart review, lab review, review of studies, review of inpatient medication list cc f/u abd pain HPI Pt states RUQ pain the same, unaffected by diet. Stool output about the same as home. She reports no GI bleeding. Review of Systems Respiratory: No shortness of breath Cardiac: No chest pain Medications Current Inpatient Medications Medications (Trade) Dose Ordered Sig/Sd Route Start Time Stop Time Status Last Admin Dose Admin Acetaminophen (Tylenol Tab) 650 mg Q4H PRN PO 06/22/17 01:45 07/22/17 01:44 Magnesium Hydroxide (Milk Of Magnesia Susp) 30 ml Q6H PRN PO 06/22/17 01:45 07/22/17 01:44 Ondansetron HCl (Zofran Inj) 4 mg Q6H PRN IV 06/22/17 01:45 07/22/17 01:44 06/22/17 23:26 4 MG Morphine Sulfate (MoRPHine SULFATE INJ) 2 mg Q4 PRN IV 06/22/17 01:45 07/06/17 01:44 06/23/17 07:39 2 MG Oxycodone/ Acetaminophen (Percocet 5-325mg Tab) 1 tab Q4H PRN PO 06/22/17 13:30 07/06/17 13:29 06/23/17 14:15 1 TAB Pantoprazole Sodium (Protonix Tab) 40 mg BID PO 06/22/17 16:00 07/22/17 15:59 06/23/17 09:02 40 MG Senna (Senokot Tab) 8.6 mg QAM PO 06/23/17 09:00 07/23/17 08:59 Potassium Chloride (Klor-Con Tab) 40 meq BIDM PO 06/23/17 08:30 07/23/17 08:29 06/23/17 09:03 40 MEQ Bupropion HCl (Wellbutrin-Sr Tab) 150 mg BID PO 06/23/17 21:00 07/23/17 20:59 Trazodone HCl (Desyrel Tab) 150 mg QPM PO 06/23/17 21:00 07/23/17 20:59 Budesonide/ Formoterol Fumarate (Symbicort 80/ 4.5 Inh) 2 puffs BID INH 06/23/17 21:00 07/23/17 20:59 Cholecalciferol (Vitamin D Tab) 6,000 inter.unit DAILY PO 06/24/17 09:00 07/24/17 08:59 Dicyclomine HCl (Bentyl Cap) 10 mg ACHS PO 06/23/17 12:00 07/23/17 11:59 06/23/17 11:24 10 MG Donepezil HCl (Aricept Tab) 10 mg DAILY PO 06/24/17 09:00 07/24/17 08:59 Fluoxetine HCl (Prozac Cap) 20 mg TID PO 06/23/17 21:00 07/24/17 08:59 Objective Vital Signs Date Time Temp Pulse Resp B/P (MAP) Pulse Ox O2 Delivery O2 Flow Rate FiO2 06/23/17 15:11 36.7 88 18 115/76 (89) 96 Room Air 06/23/17 07:20 Room Air 06/23/17 07:02 36.4 87 16 101/69 (80) 97 Room Air 06/22/17 23:15 Room Air 06/22/17 22:58 36.5 84 16 123/78 (93) 97 Room Air Physical Exam General Appearance: WD/WN, no apparent distress Respiratory/Chest: lungs clear, no respiratory distress Cardiovascular: regular rate, rhythm Abdomen: normal bowel sounds, soft, no organomegaly, + pertinent finding (no guarding nor rebound,) Laboratory Results Last 24 Hours Test 06/23/17 07:28 White Blood Count 8.18 K/uL Red Blood Count 4.15 M/uL Hemoglobin 11.4 g/dL Hematocrit 35.4 % Mean Corpuscular Volume 85.3 fL Mean Corpuscular Hemoglobin 27.5 pg Mean Corpuscular Hemoglobin Concent 32.2 g/dl Platelet Count 349 K/uL Mean Platelet Volume 8.9 fL Neutrophils (%) (Auto) 72.5 % Lymphocytes (%) (Auto) 18.8 % Monocytes (%) (Auto) 5.7 % Eosinophils (%) (Auto) 2.3 % Basophils (%) (Auto) 0.5 % Neutrophils # (Auto) 5.92 K/uL Lymphocytes # (Auto) 1.54 K/uL Monocytes # (Auto) 0.47 K/uL Eosinophils # (Auto) 0.19 K/uL Basophils # (Auto) 0.04 K/uL RDW Standard Deviation 45.6 fL RDW Coefficient of Variation 14.5 % Immature Granulocyte % (Auto) 0.2 % Immature Granulocyte # (Auto) 0.02 K/uL Sodium Level 135 mmol/L Potassium Level 3.4 mmol/L Chloride Level 104 mmol/L Carbon Dioxide Level 20 mmol/L Anion Gap 11.0 mmol/L Blood Urea Nitrogen 24 mg/dl Creatinine 1.20 mg/dl Est Creatinine Clear Calc Drug Dose 52.9 ml/min Estimated GFR () 61.5 Estimated GFR (Non- 53.0 BUN/Creatinine Ratio 19.8 Random Glucose 97 mg/dl Calcium Level 8.5 mg/dl Total Bilirubin 0.3 mg/dl Aspartate Amino Transf (AST/SGOT) 28 U/L Alanine Aminotransferase (ALT/SGPT) 40 U/L Alkaline Phosphatase 108 U/L Total Protein 7.2 gm/dl Albumin 3.1 gm/dl Globulin 4.1 gm/dl Albumin/Globulin Ratio 0.8 Triglycerides Level 390 mg/dl Lipase 630 U/L Thyroid Stimulating Hormone (TSH) 0.847 uIu/ml Cortisol AM Sample 13.37 mcg/dl Assessment and Plan Abdominal pain---differential includes the hematoma but per surgery pain seems out of proportion, pancreatitis but none seen on CT, PUD (hx of erosive esophagitis and gastritis), ischemic bowel (no mention on CT). cortisol and TSH normal. Radiculopathy possible and DR Kenyon said he will do workup if MRCP negative for pancreatitis. elevated lipase/amylase--this has been persistently elevated but no radiologic correlation--could be a smoldering chronic pancreatisi but EUS 04/2017 did not confirm pancreatitis-- IgG4 for autoimmune pancreaitis pending. Triglyceride level 390 high but not in pacreatitis range. MRCP had been ordered. Diarrhea-- CDiff negative, Noticed patient on daily senna. Consider DC of senna and if persistent diarrhea consider ilooscopy crohns--not typpical for flare, if need to stage could do ileoscopy PUD--erosive esophagitis and gastritis on EGD at [facility] 04/2017 and has not been on PPI as outpt---order Protonix bid. heme pos stools --for PUD as cause will use protonix bid, if from crohns then can see on ileoscopy if done nausea--secondary to abd pain I am going off service tomorrow 06/24/[address] Lott assuming GI care then.
[2017-06-23] MEDS: BuPROPion SR 150 MG TABCR PO SCH (21:24)
[2017-06-23] MEDS: FLUOXETINE HCL 20 MG CAP PO SCH (21:24)
[2017-06-23] MEDS: BUDESONIDE/FORMOTEROL FUMARATE 80/4.5 60 PUFFS/INHALER INH SCH (22:38)
[2017-06-23] MEDS: TRAZODONE HCL 50 MG TAB PO SCH (22:38)
[2017-06-23 23:08] VITALS: BP 102/70; PULSE 83; TEMP 36.7; O2SAT 94
[2017-06-24 06:26] LABS: BASO % 0.8 %; BASO ABS # 0.06 K/uL (0-0.2); COMPLETE YES; EOS % 3.2 %; HEMATOCRIT 36.4 % (37-47); IG% 0.3 %; LYMPH % 24.7 %; MEAN CELL VOLUME 85.6 fL (80-100); MEAN CORPUSCULAR HEMOGLOBIN 27.3 pg (25-34); MEAN CORPUSCULAR HGB CONC 31.9 g/dl (32-36); MEAN PLATELET VOLUME 9.1 fL (7.4-10.4); MONO % 5.8 %; NEUT % 65.2 %; PLATELET COUNT 360 K/uL (130-400); RED BLOOD COUNT 4.25 M/uL (4.2-5.4)
[2017-06-24 06:59] LABS: BUN/CREATININE RATIO 15.7 (10-20); CALCIUM 9.1 mg/dl (8.5-10.1); CREATININE 1.2 mg/dl (0.60-1.20); POTASSIUM 4.1 mmol/L (3.5-5.1)
[2017-06-24 07:04] VITALS: BP 104/71; PULSE 78; TEMP 36.6; O2SAT 96
[2017-06-24 07:05] LABS: ALB/GLOB RATIO 0.8 (0.9-2)
[2017-06-24] MEDS: OXYCODONE/ACETAMINOPHEN 5-325 TAB PO PRN ×5 (07:09→23:57)
[2017-06-24] MEDS: DICYCLOMINE HCL 10 MG CAP PO SCH ×4 (07:41→21:18)
--- NOTE | 2017-06-24 07:45 | DIAGNOSTIC IMAGING REPORT ---
MRCP CLINICAL HISTORY: 47 years-old Female presenting with elevated lipase ?pancreatitis, history of cholecystectomy on 05/30/2017, now severe abdominal pain and nausea progressively worsening, history of Crohn's disease. TECHNIQUE: Multisequence, multiplanar MR imaging of the abdomen was performed without the use of intravenous contrast. IV contrast: None. COMPARISON: CT from 06/21/2017. FINDINGS: Localizer images: Perihepatic collection again noted as seen on prior CT. Lung bases: Lung bases clear. No pericardial or pleural effusion. Liver: 8.8 x 5.5 cm perihepatic collection at the inferior right hepatic lobe, unchanged in size since most recent CT. This collection demonstrates T2 shading likely indicating hemorrhage. Trace perihepatic free fluid also noted. No fluid collection in the gallbladder fossa. Normal morphology. No liver lesion. Patent hepatic vasculature. Biliary: Conventional intrahepatic biliary bifurcation. Cystic duct remnant noted. No intrahepatic or extrahepatic biliary ductal dilatation. Gallbladder surgically absent. Pancreas: Normal. No peripancreatic fat stranding. No pancreatic ductal dilatation. Spleen: Normal. Adrenal glands: Normal. Kidneys and ureters: Normal. No hydronephrosis. Gastrointestinal tract: Grossly normal. Peritoneal cavity: No free fluid or intraperitoneal gas. Vasculature: Normal noncontrast appearance. Lymph nodes: No gross evidence of enlarged lymph nodes in the abdomen. Abdominal wall: Normal. Musculoskeletal: Normal. IMPRESSION: 1. Stable a 8.8 cm perihepatic collection at the inferior right hepatic lobe most consistent with hematoma, which is likely postsurgical. This is not typical of a biloma, and the absence of inflammatory changes suggest against abscess. Electronically signed by: Graham Burris M.D. 06/24/2017 7:43 AM Dictated Date/Time: 06/24/2017 7:35 AM
--- NOTE | 2017-06-24 07:47 | Surgery Progress Note ---
Surgery Progress Note Date of Service Jun 24, 2017. Subjective still with pain mostly right side, no nausea, tolerated liquids Objective Vital Signs: Date Time Temp Pulse Resp B/P (MAP) Pulse Ox O2 Delivery O2 Flow Rate FiO2 06/24/17 07:04 36.6 78 19 104/71 (82) 96 Room Air 06/23/17 23:15 Room Air 06/23/17 23:08 36.7 83 16 102/70 (81) 94 Room Air 06/23/17 17:02 Room Air 06/23/17 15:11 36.7 88 18 115/76 (89) 96 Room Air Abdomen: non distended, soft, + tenderness (minimal right side) Laboratory Results: Results Past 24 Hours Test 06/24/17 05:32 Range/Units White Blood Count 7.30 4.8-10.8 K/uL Red Blood Count 4.25 4.2-5.4 M/uL Hemoglobin 11.6 12.0-16.0 g/dL Hematocrit 36.4 37-47 % Mean Corpuscular Volume 85.6 80-100 fL Mean Corpuscular Hemoglobin 27.3 25-34 pg Mean Corpuscular Hemoglobin Concent 31.9 32-36 g/dl Platelet Count 360 130-400 K/uL Mean Platelet Volume 9.1 7.4-10.4 fL Neutrophils (%) (Auto) 65.2 % Lymphocytes (%) (Auto) 24.7 % Monocytes (%) (Auto) 5.8 % Eosinophils (%) (Auto) 3.2 % Basophils (%) (Auto) 0.8 % Neutrophils # (Auto) 4.77 1.4-6.5 K/uL Lymphocytes # (Auto) 1.80 1.2-3.4 K/uL Monocytes # (Auto) 0.42 0.11-0.59 K/uL Eosinophils # (Auto) 0.23 0-0.5 K/uL Basophils # (Auto) 0.06 0-0.2 K/uL RDW Standard Deviation 45.4 36.4-46.3 fL RDW Coefficient of Variation 14.5 11.5-14.5 % Immature Granulocyte % (Auto) 0.3 % Immature Granulocyte # (Auto) 0.02 0.00-0.02 K/uL Sodium Level 137 136-145 mmol/L Potassium Level 4.1 3.5-5.1 mmol/L Chloride Level 107 98-107 mmol/L Carbon Dioxide Level 23 21-32 mmol/L Anion Gap 7.0 3-11 mmol/L Blood Urea Nitrogen 19 7-18 mg/dl Creatinine 1.20 0.60-1.20 mg/dl Est Creatinine Clear Calc Drug Dose 52.9 ml/min Estimated GFR () 61.5 Estimated GFR (Non- 53.0 BUN/Creatinine Ratio 15.7 10-20 Random Glucose 87 70-99 mg/dl Calcium Level 9.1 8.5-10.1 mg/dl Total Bilirubin 0.3 0.2-1 mg/dl Aspartate Amino Transf (AST/SGOT) 32 15-37 U/L Alanine Aminotransferase (ALT/SGPT) 42 12-78 U/L Alkaline Phosphatase 110 45-117 U/L Total Protein 7.3 6.4-8.2 gm/dl Albumin 3.2 3.4-5.0 gm/dl Globulin 4.1 2.5-4.0 gm/dl Albumin/Globulin Ratio 0.8 0.9-2 Lipase 1760 73-393 U/L Assessment & Plan abdominal hematoma likely related to trocar, reviewed imaging with radiology, could drain but likely low yield continue analgesics rising lipase MRCP also reviewed with radiology, no filling defects await GI input, ? CT pancreas/EUS seen with Dr. Mckeon
[2017-06-24] MEDS: BUDESONIDE/FORMOTEROL FUMARATE 80/4.5 60 PUFFS/INHALER INH SCH ×2 (08:53→21:17)
[2017-06-24] MEDS: FLUOXETINE HCL 20 MG CAP PO SCH ×3 (08:54→21:18)
[2017-06-24] MEDS: PANTOprazole SOD 40 MG TAB PO SCH ×2 (08:54→21:17)
[2017-06-24] MEDS: SENNA 8.6 MG TAB PO SCH (08:55)
[2017-06-24] MEDS: BuPROPion SR 150 MG TABCR PO SCH ×2 (08:55→21:17)
[2017-06-24] MEDS: DONEPEZIL HCL 10 MG TAB PO SCH (08:55)
[2017-06-24] MEDS: POTASSIUM CHLORIDE 20 MEQ TABCR PO SCH ×2 (08:55→17:28)
[2017-06-24] MEDS: CHOLECALCIFEROL 1000 INTER.UNIT TAB PO SCH (08:56)
[2017-06-24] MEDS ORDERED: FLUOXETINE HCL 20 MG CAP PO SCH (09:00)
[2017-06-24] MEDS: MoRPHine SULFATE 2 MG/ML CARP IV PRN (09:00)
[2017-06-24 15:01] VITALS: BP 105/70; PULSE 82; TEMP 36.3; O2SAT 97
--- NOTE | 2017-06-24 16:12 | Family Medicine Progress Note ---
Progress Note Date of Service Jun 24, 2017. Subjective Pt evaluation today including: conversation w/ patient, physical exam, chart review, lab review, conversation w/ service delivery management consultant, review of inpatient medication list Pain: 8/10 Patient without any acute events overnight Patient still with 8/10 abdominal pain Feels nauseated and has right shoulder pain Diarrhea into her stoma bag Constitutional: No fever, No chills, No sweats Respiratory: No cough, No sputum, No shortness of breath Cardiovascular: No chest pain, No orthopnea, No palpitations Abdomen: + pain, + nausea, + diarrhea, No vomiting Musculoskeletal: + problem reported (right shoulder tip pain), No joint pain Heme: No abnormal bleeding/bruising Medications Current Inpatient Medications Medications (Trade) Dose Ordered Sig/Sd Route Start Time Stop Time Status Last Admin Dose Admin Acetaminophen (Tylenol Tab) 650 mg Q4H PRN PO 06/22/17 01:45 07/22/17 01:44 Magnesium Hydroxide (Milk Of Magnesia Susp) 30 ml Q6H PRN PO 06/22/17 01:45 07/22/17 01:44 Ondansetron HCl (Zofran Inj) 4 mg Q6H PRN IV 06/22/17 01:45 07/22/17 01:44 06/22/17 23:26 4 MG Morphine Sulfate (MoRPHine SULFATE INJ) 2 mg Q4 PRN IV 06/22/17 01:45 07/06/17 01:44 06/24/17 09:00 2 MG Oxycodone/ Acetaminophen (Percocet 5-325mg Tab) 1 tab Q4H PRN PO 06/22/17 13:30 07/06/17 13:29 06/24/17 07:09 1 TAB Pantoprazole Sodium (Protonix Tab) 40 mg BID PO 06/22/17 16:00 07/22/17 15:59 06/24/17 08:54 40 MG Senna (Senokot Tab) 8.6 mg QAM PO 06/23/17 09:00 07/23/17 08:59 Potassium Chloride (Klor-Con Tab) 40 meq BIDM PO 06/23/17 08:30 07/23/17 08:29 06/24/17 08:55 40 MEQ Bupropion HCl (Wellbutrin-Sr Tab) 150 mg BID PO 06/23/17 21:00 07/23/17 20:59 06/24/17 08:55 150 MG Trazodone HCl (Desyrel Tab) 150 mg QPM PO 06/23/17 21:00 07/23/17 20:59 06/23/17 22:38 150 MG Budesonide/ Formoterol Fumarate (Symbicort 80/ 4.5 Inh) 2 puffs BID INH 06/23/17 21:00 07/23/17 20:59 06/24/17 08:53 2 PUFFS Cholecalciferol (Vitamin D Tab) 6,000 inter.unit DAILY PO 06/24/17 09:00 07/24/17 08:59 06/24/17 08:56 6,000 INTER.UNIT Dicyclomine HCl (Bentyl Cap) 10 mg ACHS PO 06/23/17 12:00 07/23/17 11:59 06/24/17 12:02 10 MG Donepezil HCl (Aricept Tab) 10 mg DAILY PO 06/24/17 09:00 07/24/17 08:59 06/24/17 08:55 10 MG Fluoxetine HCl (Prozac Cap) 20 mg TID PO 06/23/17 21:00 07/24/17 08:59 06/24/17 13:52 20 MG Oxycodone/ Acetaminophen (Percocet 5-325mg Tab) 2 tab Q4H PRN PO 06/24/17 07:45 07/08/17 07:44 06/24/17 12:04 2 TAB Lactated Ringer's 1,000 ml @ 125 mls/hr Q8H IV 06/24/17 16:00 07/24/17 15:59 Objective Vital Signs Date Time Temp Pulse Resp B/P (MAP) Pulse Ox O2 Delivery O2 Flow Rate FiO2 06/24/17 15:01 36.3 82 18 105/70 (82) 97 Room Air 06/24/17 07:35 Room Air 06/24/17 07:04 36.6 78 19 104/71 (82) 96 Room Air 06/23/17 23:15 Room Air 06/23/17 23:08 36.7 83 16 102/70 (81) 94 Room Air 06/23/17 17:02 Room Air Physical Exam General Appearance: WD/WN, no apparent distress ENT: hearing grossly normal, pharynx normal Neck: supple, no JVD, no carotid bruits Respiratory/Chest: lungs clear, no respiratory distress, no accessory muscle use Cardiovascular: regular rate, rhythm, no edema, no JVD, no murmur Abdomen: + abnormal bowel sounds (high pitched), + tenderness (tender to deep palpation on right side of abdomen and most prominent in RUQ, mild guarding but no rebound), + pertinent finding (midline abdominal scar with RUQ stoma bag ( flushed to the skin) no surrounding erythema. yellow/brown fecal matter in stoma bag, RLQ scar) Extremities: non-tender, no pedal edema, no calf tenderness Neurologic/Psychiatric: alert, normal mood/affect, oriented x 3 Skin: normal color, warm/dry, no rash Laboratory Results Results Past 24 Hours Test 06/24/17 05:32 06/24/17 15:52 Range/Units White Blood Count 7.30 4.8-10.8 K/uL Red Blood Count 4.25 4.2-5.4 M/uL Hemoglobin 11.6 12.0-16.0 g/dL Hematocrit 36.4 37-47 % Mean Corpuscular Volume 85.6 80-100 fL Mean Corpuscular Hemoglobin 27.3 25-34 pg Mean Corpuscular Hemoglobin Concent 31.9 32-36 g/dl Platelet Count 360 130-400 K/uL Mean Platelet Volume 9.1 7.4-10.4 fL Neutrophils (%) (Auto) 65.2 % Lymphocytes (%) (Auto) 24.7 % Monocytes (%) (Auto) 5.8 % Eosinophils (%) (Auto) 3.2 % Basophils (%) (Auto) 0.8 % Neutrophils # (Auto) 4.77 1.4-6.5 K/uL Lymphocytes # (Auto) 1.80 1.2-3.4 K/uL Monocytes # (Auto) 0.42 0.11-0.59 K/uL Eosinophils # (Auto) 0.23 0-0.5 K/uL Basophils # (Auto) 0.06 0-0.2 K/uL RDW Standard Deviation 45.4 36.4-46.3 fL RDW Coefficient of Variation 14.5 11.5-14.5 % Immature Granulocyte % (Auto) 0.3 % Immature Granulocyte # (Auto) 0.02 0.00-0.02 K/uL Sodium Level 137 136-145 mmol/L Potassium Level 4.1 3.5-5.1 mmol/L Chloride Level 107 98-107 mmol/L Carbon Dioxide Level 23 21-32 mmol/L Anion Gap 7.0 3-11 mmol/L Blood Urea Nitrogen 19 7-18 mg/dl Creatinine 1.20 0.60-1.20 mg/dl Est Creatinine Clear Calc Drug Dose 52.9 ml/min Estimated GFR () 61.5 Estimated GFR (Non- 53.0 BUN/Creatinine Ratio 15.7 10-20 Random Glucose 87 70-99 mg/dl Calcium Level 9.1 8.5-10.1 mg/dl Total Bilirubin 0.3 0.2-1 mg/dl Aspartate Amino Transf (AST/SGOT) 32 15-37 U/L Alanine Aminotransferase (ALT/SGPT) 42 12-78 U/L Alkaline Phosphatase 110 45-117 U/L Total Protein 7.3 6.4-8.2 gm/dl Albumin 3.2 3.4-5.0 gm/dl Globulin 4.1 2.5-4.0 gm/dl Albumin/Globulin Ratio 0.8 0.9-2 Lipase 1760 73-393 U/L Assessment and Plan 47 yo F with Crohn's, on Stelara, s/p ileostomy, s/p cholecystectomy, and s/p L lobe thyroidectomy who presents with long history of abdominal pain, with elevated lipase, nausea, and pain. Abdominal pain, unclear etiology - Lipase elevated again today at 1760. CT scan without pancreatitis, TG's 390, n - MRCP without any filling defects but did show stable 8cm perihepatic hematoma (surgery days unlikely to be causing abdominal pain), had a cholecystecomy in May - Chrons flare a possibility, will order ESR - Could possibly be neuropathic pain from thoracic spine --->will order MRI to assess - Possibly PUD however pain continues to persist - Placed pt back on full liquid diet - For pain, she has Percocet 5-325 as well as Morphine 2mg IV q4h PRN for more severe pain. Chrons disease - On stelera - Has an ileostomy - well controlled Heme positive stools: - Protonix bid Nausea: - Continue Zofran Depression: - Unclear dosing of home dose of Prozac (20mg TID) - will clarify, and for now continue 20mg daily - Will continue Aricept - though unclear of who initiated this as well - Will continue Trazodone and Bupoprion Hx of Goitre, s/p L thyroidectomy - Unclear of current thyroid function, will check a TSH VTE: SCDs. Dispo: Remains on Med/Surg, workup still pending Code status: FULL Continued [facility] stay due to: inadequate oral pain control, multiple IV medications needed History Resident Physician Supervision Note: I was present with Dr. Hamilton during the history and exam. I discussed the case with the resident and agree with the findings and plan as documented in the note. Any exceptions or clarifications are listed here. Pt reports pain is controlled with present regimen but quickly escalates without medication. Having similar sharp/aching pain of the right posterior shoulder which may be referred pain. Tolerating POI well at present. Loose brown stool in ostomy bag. General Appearance: WD/WN, no apparent distress Respiratory: chest non-tender, lungs clear, normal breath sounds, no respiratory distress Cardiovascular: normal peripheral pulses, regular rate, rhythm, no edema, no murmur Gastrointestinal: normal bowel sounds, soft, no organomegaly, no pulsatile mass , tenderness (focused on RUQ, though some reproducible into the flank over the ribs) Neurologic/Psychiatric: no motor/sensory deficits, alert, normal mood/affect, oriented x 3 Skin Characteristics: normal color, warm/dry Assessment/Plan 47 y/o female h/o Crohn's disease on Stelara, s/p ileostomy, s/p cholecystectomy w/ abdominal pain and elevated lipase Abdominal pain - GI and surgery aware and input appreciated - GI concerned re: hematoma induced pain which should self-resolve, hydrating for ? hemoconcentrated lipase elevation and testing for AI causes of pancreatitis. Trend lipase daily, MRI tSpine, pain control as above Crohn's dz - continue stelara, zofran PRN, continue PPI Depression - continue prozac, trazodone and buproprion s/p unilateral thyroidectomy - TSH WNL
[2017-06-24] MEDS: LACTATED RINGER'S 1000ML 1,000 ML IV SCH (16:15)
--- NOTE | 2017-06-24 16:29 | PROGRESS NOTE ---
DATE: 06/24/2017 SUBJECTIVE: The patient continues to have right upper quadrant pain and is reporting that she is having high ileostomy outputs. Unfortunately, there is no I's and O's recorded for her ileostomy output in the medical record. Her MRCP shows normal pancreatic duct. She does have an 8.8 x 5.5 cm hematoma near the right lobe of the liver, but not in the gallbladder bed, probably from post-surgical trauma. This has remained stable, it is not increasing in size and her hemoglobin remains stable at 11.4. Her lipase has increased to 1200 today, which may be from hemoconcentration that she is having high ileostomy outputs. PHYSICAL EXAMINATION: ABDOMEN: Soft. There are some healing laparoscopic scars, little bit of tenderness in the right upper quadrant. Her ileostomy in left lower quadrant shows clear liquid output. The stoma looks healthy. IMPRESSION: The patient has a hematoma in the right upper quadrant, probably responsible for her pain. This should resolve over time. Her lipase is elevated, but her pancreas looks normal on imaging studies. I think this may be a function of hemoconcentration from high ostomy outputs. So, I plan on putting her on lactated Ringer's at 125 an hour to rehydrate her. We will get an IgG4 and an MARGARITO to rule out autoimmune pancreatitis and we will continue to follow her. We will also have the nurses record her ileostomy outputs as well.
--- NOTE | 2017-06-24 21:15 | DIAGNOSTIC IMAGING REPORT ---
LUMBAR SPINE MRI HISTORY: Low back pain. Possible referred pain to flank TECHNIQUE: Multiplanar multisequence MRI of the lumbar spine was performed without the use of contrast. COMPARISON: MRCP 06/23/2017. Abdomen and pelvis CT 06/21/2017. FINDINGS: For the purpose of the report the L5-S1 disc space will be located on axial image 27 of 30. Localizer images again demonstrate the 8 x 5.5 cm T2 hyperintense, T1 heterogeneous collection within the right side of the abdomen lateral to the right hepatic lobe. This likely represents a loculated intra-abdominal/perihepatic hematoma. The disc spaces are preserved. No fracture or subluxation. Normal marrow signal intensity seen throughout the visualized osseous structures. The contrast terminates at the L2 level. Paraspinal soft tissues are unremarkable. A 1 cm Tarlov cyst at S2. This is of doubtful clinical significance. L1-L2: No significant central canal or neural foraminal narrowing. L2-L3: No significant central canal or neural foraminal narrowing. L3-L4: No significant central canal or neural foraminal narrowing. L4-L5: Tiny disc bulge with a tiny right foraminal annular tear. This results in mild right-sided neural foraminal narrowing. No central canal narrowing. L5-S1: No significant central canal or neural foraminal narrowing. IMPRESSION: 1. Tiny disc bulge at L4-L5 with a tiny right foraminal annular tear. This results in mild right-sided neural foraminal narrowing. No central canal narrowing. 2. Partially visualized 8 cm loculated perihepatic fluid collection is again noted. This likely accounts for the patient's right flank pain. This is better appreciated on the prior studies. This favors a hematoma. Electronically signed by: Gregg Walker M.D. 06/24/2017 9:13 PM Dictated Date/Time: 06/24/2017 9:05 PM
[2017-06-24 22:53] VITALS: BP 107/72; PULSE 82; TEMP 36.8; O2SAT 96
[2017-06-24] MEDS: TRAZODONE HCL 50 MG TAB PO SCH (23:58)
[2017-06-25] MEDS: LACTATED RINGER'S 1000ML 1,000 ML IV SCH ×3 (00:02→16:17)
[2017-06-25] MEDS: OXYCODONE/ACETAMINOPHEN 5-325 TAB PO PRN ×3 (04:55→12:13)
[2017-06-25 06:30] LABS: HEMATOCRIT 35.5 % (37-47); PLATELET COUNT 340 K/uL (130-400); RED BLOOD COUNT 4.08 M/uL (4.2-5.4); WHITE BLOOD COUNT 6.78 K/uL (4.8-10.8)
[2017-06-25 06:59] LABS: BUN/CREATININE RATIO 11.4 (10-20); CALCIUM 9.3 mg/dl (8.5-10.1); CREATININE 1.2 mg/dl (0.60-1.20); POTASSIUM 4.4 mmol/L (3.5-5.1)
--- NOTE | 2017-06-25 07:06 | SURGERY PROGRESS NOTE ---
DATE: 06/25/2017 Yu may be a little bit better with her right upper quadrant pain. She is taking 2 Percocets at a time at this time. In summary, she has a trocar hematoma. This is not involving the liver. It is abdominal wall, probably extraperitoneal that is accounting for some discomfort. At this point, my recommendation would be to continue with analgesics rather than try to take her to surgery and open this and drain the hematoma. Percutaneous access would not be a significant help since this hematoma is probably clotted at this time and is not very liquified. The patient's abdomen is completely benign and she wants to eat more. The only pain that she has as stated is in the right side right underneath the trocar site in the abdominal wall. Of note, there is no obvious hematoma appreciated or ecchymosis appreciated on the skin itself. Laboratory yesterday her lipase had gone up to 1760. Interestingly did the surgery on her because she was admitted prior episodes of pancreatitis. We got an intraoperative cholangiogram at that time which was normal. An MRCP was repeated yesterday, which still was reading normal. The pancreatic aspect was discussed with Dr. Lott. In summary, at this time, we will see how she does in a day or so. This was discussed in detail with the patient regarding surgery or try nonoperative management and I would favor that at this time.
[2017-06-25 07:08] VITALS: BP 131/86; PULSE 87; TEMP 36.7; O2SAT 98
--- NOTE | 2017-06-25 08:14 | Family Medicine Progress Note ---
Progress Note Date of Service Jun 25, 2017. Subjective Pt evaluation today including: conversation w/ patient, physical exam, chart review, lab review, conversation w/ library consultant, review of inpatient medication list Pain: 01/21 PO Intake: good Voiding: no voiding problems Patient still with pain underneath her ribs on the R side She says it is worse when taking a deep breath and when moving She describes it as a tearing pain Seen by ortho yesterday and decided for non operative management in the meantime Constitutional: No fever, No chills, No sweats Respiratory: No cough, No sputum, No shortness of breath Abdomen: + pain, + nausea, + diarrhea, No vomiting, No constipation Musculoskeletal: No joint pain, No muscle pain, No calf pain Female : No dysuria, No urinary frequency Skin: No rash, No itch, No new/changing skin lesions Medications Current Inpatient Medications Medications (Trade) Dose Ordered Sig/Sd Route Start Time Stop Time Status Last Admin Dose Admin Acetaminophen (Tylenol Tab) 650 mg Q4H PRN PO 06/22/17 01:45 07/22/17 01:44 Magnesium Hydroxide (Milk Of Magnesia Susp) 30 ml Q6H PRN PO 06/22/17 01:45 07/22/17 01:44 Ondansetron HCl (Zofran Inj) 4 mg Q6H PRN IV 06/22/17 01:45 07/22/17 01:44 06/22/17 23:26 4 MG Morphine Sulfate (MoRPHine SULFATE INJ) 2 mg Q4 PRN IV 06/22/17 01:45 07/06/17 01:44 06/24/17 09:00 2 MG Oxycodone/ Acetaminophen (Percocet 5-325mg Tab) 1 tab Q4H PRN PO 06/22/17 13:30 07/06/17 13:29 06/24/17 07:09 1 TAB Pantoprazole Sodium (Protonix Tab) 40 mg BID PO 06/22/17 16:00 07/22/17 15:59 06/24/17 21:17 40 MG Senna (Senokot Tab) 8.6 mg QAM PO 06/23/17 09:00 07/23/17 08:59 Potassium Chloride (Klor-Con Tab) 40 meq BIDM PO 06/23/17 08:30 07/23/17 08:29 06/24/17 17:28 40 MEQ Bupropion HCl (Wellbutrin-Sr Tab) 150 mg BID PO 06/23/17 21:00 07/23/17 20:59 06/24/17 21:17 150 MG Trazodone HCl (Desyrel Tab) 150 mg QPM PO 06/23/17 21:00 07/23/17 20:59 06/24/17 23:58 150 MG Budesonide/ Formoterol Fumarate (Symbicort 80/ 4.5 Inh) 2 puffs BID INH 06/23/17 21:00 07/23/17 20:59 06/24/17 21:17 2 PUFFS Cholecalciferol (Vitamin D Tab) 6,000 inter.unit DAILY PO 06/24/17 09:00 07/24/17 08:59 06/24/17 08:56 6,000 INTER.UNIT Dicyclomine HCl (Bentyl Cap) 10 mg ACHS PO 06/23/17 12:00 07/23/17 11:59 06/24/17 21:18 10 MG Donepezil HCl (Aricept Tab) 10 mg DAILY PO 06/24/17 09:00 07/24/17 08:59 06/24/17 08:55 10 MG Fluoxetine HCl (Prozac Cap) 20 mg TID PO 06/23/17 21:00 07/24/17 08:59 06/24/17 21:18 20 MG Oxycodone/ Acetaminophen (Percocet 5-325mg Tab) 2 tab Q4H PRN PO 06/24/17 07:45 07/08/17 07:44 06/25/17 04:55 2 TAB Lactated Ringer's 1,000 ml @ 125 mls/hr Q8H IV 06/24/17 16:00 07/24/17 15:59 06/25/17 00:02 125 MLS/HR Objective Vital Signs Date Time Temp Pulse Resp B/P (MAP) Pulse Ox O2 Delivery O2 Flow Rate FiO2 06/25/17 07:20 Room Air 06/25/17 07:08 36.7 87 18 131/86 (101) 98 Room Air 06/24/17 23:45 Room Air 06/24/17 22:53 36.8 82 20 107/72 (84) 96 Room Air 06/24/17 16:10 Room Air 06/24/17 15:01 36.3 82 18 105/70 (82) 97 Room Air Physical Exam General Appearance: WD/WN, no apparent distress Respiratory/Chest: lungs clear, no respiratory distress, no accessory muscle use Cardiovascular: regular rate, rhythm, no edema, no murmur Abdomen: + abnormal bowel sounds (high pitched), + tenderness (tender in the R side of abdomen and most painful when asked to take a deep breath under the ribs on the right side) Extremities: non-tender, no calf tenderness, normal capillary refill Neurologic/Psychiatric: alert, normal mood/affect, oriented x 3 Skin: normal color, warm/dry, no rash Laboratory Results Results Past 24 Hours Test 06/24/17 16:16 06/25/17 05:53 Range/Units White Blood Count 6.78 4.8-10.8 K/uL Red Blood Count 4.08 4.2-5.4 M/uL Hemoglobin 11.0 12.0-16.0 g/dL Hematocrit 35.5 37-47 % Mean Corpuscular Volume 87.0 80-100 fL Mean Corpuscular Hemoglobin 27.0 25-34 pg Mean Corpuscular Hemoglobin Concent 31.0 32-36 g/dl RDW Standard Deviation 46.7 36.4-46.3 fL RDW Coefficient of Variation 14.5 11.5-14.5 % Platelet Count 340 130-400 K/uL Mean Platelet Volume 9.0 7.4-10.4 fL Erythrocyte Sedimentation Rate 35 0-21 mm/hr Sodium Level 134 136-145 mmol/L Potassium Level 4.4 3.5-5.1 mmol/L Chloride Level 106 98-107 mmol/L Carbon Dioxide Level 22 21-32 mmol/L Anion Gap 6.0 3-11 mmol/L Blood Urea Nitrogen 14 7-18 mg/dl Creatinine 1.20 0.60-1.20 mg/dl Est Creatinine Clear Calc Drug Dose 52.9 ml/min Estimated GFR () 61.5 Estimated GFR (Non- 53.0 BUN/Creatinine Ratio 11.4 10-20 Random Glucose 98 70-99 mg/dl Calcium Level 9.3 8.5-10.1 mg/dl Lipase 2442 73-393 U/L Assessment and Plan 47 yo F with Crohn's, on Stelara, s/p ileostomy, s/p cholecystectomy, and s/p L lobe thyroidectomy who presents with long history of abdominal pain, with elevated lipase, nausea, and pain. Abdominal pain, unclear etiology - Lipase elevated again today [place] [address]2. CT scan without pancreatitis, TG's 390, GI think it is from high ostomy output leading to hemoconcentration, patient was started on LR 125mls/hr and autoimmune labs have been ordered for possibility of autoimmune pancreatitis - MRCP without any filling defects but did show stable 8cm perihepatic hematoma , had a cholecystecomy in May - Likely to be hematoma- surgery wants to do conservative management currently as hematoma will decrease in size with time - Could possibly be neuropathic pain from thoracic spine --->MRI of lumbar spine without any findings to explain this pain - Placed pt back on full liquid diet - For pain, she has 2 Percocet 5-325 as well as Morphine 2mg IV q4h PRN for more severe pain. Chrons disease - On stelera - Has an ileostomy - well controlled Heme positive stools: - Protonix bid Nausea: - Continue Zofran Depression: - Unclear dosing of home dose of Prozac (20mg TID) - will clarify, and for now continue 20mg daily - Will continue Aricept - though unclear of who initiated this as well - Will continue Trazodone and Bupoprion Hx of Goitre, s/p L thyroidectomy - Unclear of current thyroid function, will check a TSH VTE: SCDs. Dispo: Remains on Med/Surg, workup still pending Code status: FULL Continued [facility] stay due to: inadequate oral pain control History Resident Physician Supervision Note: I was present with Dr. Hamilton during the history and exam. I discussed the case with the resident and agree with the findings and plan as documented in the note. Any exceptions or clarifications are listed here. Pt reports aching/sharp RUQ pain which is controlled with present medication but stable from previous. Still worsening with activity and deep inspiration. Reviewed MRIs with patient. Reviewed GI and GS recommendations as well and will repeat CT and continue lipase trend. General Appearance: WD/WN, no apparent distress Respiratory: chest non-tender, lungs clear, normal breath sounds, no respiratory distress Cardiovascular: normal peripheral pulses, regular rate, rhythm, no edema, no murmur Gastrointestinal: normal bowel sounds, soft, no organomegaly, tenderness (RUQ w / guarding worse w/ deep inspiration on examination extending some in the right flank but not to the back) Skin Characteristics: normal color, warm/dry Assessment/Plan 47 y/o female h/o Crohn's disease on Stelara, s/p ileostomy, s/p cholecystectomy w/ abdominal pain and elevated lipase Abdominal pain - GI and surgery aware and input appreciated - MRIs negative - Trend lipase daily, pain control, repeat CT today Crohn's dz - continue stelara, zofran PRN, continue PPI Depression - continue prozac, trazodone and buproprion s/p unilateral thyroidectomy - TSH WNL
[2017-06-25] MEDS: DICYCLOMINE HCL 10 MG CAP PO SCH ×4 (08:23→21:13)
[2017-06-25] MEDS: BUDESONIDE/FORMOTEROL FUMARATE 80/4.5 60 PUFFS/INHALER INH SCH ×2 (08:23→21:16)
[2017-06-25] MEDS: DONEPEZIL HCL 10 MG TAB PO SCH (08:23)
[2017-06-25] MEDS: POTASSIUM CHLORIDE 20 MEQ TABCR PO SCH ×2 (08:24→18:34)
[2017-06-25] MEDS: SENNA 8.6 MG TAB PO SCH (08:24)
[2017-06-25] MEDS: PANTOprazole SOD 40 MG TAB PO SCH ×2 (08:25→21:13)
[2017-06-25] MEDS: FLUOXETINE HCL 20 MG CAP PO SCH ×3 (08:25→21:13)
[2017-06-25] MEDS: CHOLECALCIFEROL 1000 INTER.UNIT TAB PO SCH (08:25)
[2017-06-25] MEDS: BuPROPion SR 150 MG TABCR PO SCH ×2 (08:30→21:14)
[2017-06-25] MEDS ORDERED: OPTIRAY 320 IV PRN (15:15)
--- NOTE | 2017-06-25 15:35 | DIAGNOSTIC IMAGING REPORT ---
THORACIC SPINE WITHOUT HISTORY: Pain Back pain TECHNIQUE: Multiplanar multisequence MRI of the thoracic spine was performed without the use of contrast. COMPARISON: None. FINDINGS: Alignment and curvature are intact. No fracture or subluxation. No significant central canal or neural foraminal narrowing. IMPRESSION: Normal study The above report was generated using voice recognition software. It may contain grammatical, syntax or spelling errors. Electronically signed by: Casey Pierce M.D. 06/25/2017 3:34 PM Dictated Date/Time: 06/25/2017 3:32 PM
[2017-06-25 15:58] VITALS: BP 105/69; PULSE 95; TEMP 36.7; O2SAT 94
--- NOTE | 2017-06-25 16:03 | DIAGNOSTIC IMAGING REPORT ---
ABDOMINAL CT WITH AND WITHOUT INTRAVENOUS CONTRAST HISTORY: Right upper quadrant abdominal pain. LIVER HEMATOMA TECHNIQUE: Multiaxial CT images of the abdomen were performed both before and after the intravenous administration of contrast. COMPARISON STUDY: MRCP 06/23/2017. Abdomen and pelvis CT 06/21/2017. FINDINGS: Bibasilar linear densities consistent with subsegmental atelectasis. No pneumoperitoneum. No pneumatosis. No fractures within the visualized osseous structures. No change in the 8.8 x 5.7 cm right perihepatic oval-shaped collection. This is slightly hyperdense and does not demonstrate internal enhancement. Therefore, this likely represents a hematoma. There is mild enhancement along the periphery of the wall which can also be seen the setting of a hematoma. Trace perihepatic fluid is noted which is 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 density which may also represent trace hemorrhage. There is also trace fluid at the gallbladder fossa status post cholecystectomy. No hepatic lacerations identified. The spleen, adrenal glands, and pancreas are unremarkable. No peripancreatic inflammatory change to suggest acute pancreatitis. The kidneys enhance normally. There is a 3 mm stone within the lower pole the left kidney. No hydronephrosis. No retroperitoneal lymphadenopathy. Small diverticulum at the second portion of the duodenum. No bowel wall thickening or obstruction. Left lower quadrant ostomy site. The right perihepatic collection results in mass effect along the right hepatic lobe. IMPRESSION: 1. No change in the 8.8 cm right perihepatic collection. This is slightly hyperdense and does not demonstrate internal enhancement. Therefore, this likely represents a hematoma. There is mild enhancement along the periphery of the wall which can also be seen the setting of a hematoma. However, a developing abscess could also have a similar. There is no gas identified within this collection at this time. 2. Trace perihepatic fluid is noted which is 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 density which may also represent trace hemorrhage. 3. Trace fluid within the gallbladder fossa status post cholecystectomy. This is likely within the range of normal limits. A bile leak cannot be entirely excluded but is considered less likely. Electronically signed by: Gregg Walker M.D. 06/25/2017 4:02 PM Dictated Date/Time: 06/25/2017 3:46 PM
[2017-06-25] MEDS: OXYCODONE/ACETAMINOPHEN 10/325MG TAB PO PRN ×2 (16:16→21:13)
--- NOTE | 2017-06-25 18:17 | GASTROENTEROLOGY PROGRESS NOTE ---
DATE: 06/25/2017 SUBJECTIVE: The patient just returned from CT scan. I did discuss her case with the health staff a short time ago. The patient continues to decline and she continues to experience mostly right-sided abdominal pain in the mid axillary line and the right upper abdomen anteriorly. There is not significant pain radiating to the back or shoulder. There is evidence of a hematoma collection between the diaphragm and the liver, although it is unclear if this subcapsular. The patient has a history of Crohn's disease and her stool outputs were perhaps slightly higher. LABORATORY STUDIES: Today show white count of 6.78, hemoglobin is 11 and stable platelets of 340,000, sed rate is elevated at 35 (Crohn's disease history), potassium 4.4, BUN and creatinine of 14 and 1.2, lipase today is 2442 up from 1716 yesterday and 630 on the . TSH is 0.84 and a cortisol a.m. level was 13.3 on June 23. Stool on admission were heme positive. There were no reports of bleeding from her ileostomy. CURRENTLY VITAL SIGNS: Blood pressure 105/69, respirations 18, 95 heart rate, temperature 36.7, and 94% on room air. REVIEW OF SYSTEMS: Otherwise noncontributory based on 13-point exam. The patient is tolerating clear liquids. PHYSICAL EXAMINATION: GENERAL: The patient is awake, alert and oriented x3. HEENT: Sclerae are anicteric. Conjunctivae are moist. Oral mucosa is moist. HEART: Normal S1, S2. LUNGS: Clear to auscultation. ABDOMEN: Soft with positive bowel sounds. Tender in the right upper quadrant, both over the upper abdomen and to a lesser extent along the right costal margin. There were positive bowel sounds, no abdominal bruits. EXTREMITIES: Without clubbing, cyanosis or edema. GENITOURINARY: Rectal exam is deferred. NEUROLOGIC: Nonfocal. She moves all extremities without difficulty. IMPRESSION AND PLAN: Source of the patient's elevating lipase is unclear; although based on the original MRCP, there was no evidence for pancreatitis, calcifications in the pancreas or abnormal pancreatic duct. The pain likely represents bleeding either subcapsularly in the liver or between the liver and diaphragm which causes some discomfort with inspiration. Presently, would keep her on a low fat liquid diet, although if she wishes to try solids, it should be a low fat diet. Await final report on the CT scan to see if evidence of interim development of pancreatitis is seen. Would also maintain hydration if necessary with IV fluids and await serial lipase tomorrow. MTDD
[2017-06-25] MEDS: ONDANSETRON INJ 2 MG/ML 2 ML VIAL IV PRN (18:29)
[2017-06-25] MEDS: MoRPHine SULFATE 2 MG/ML CARP IV PRN (18:30)
[2017-06-25] MEDS: TRAZODONE HCL 50 MG TAB PO SCH (22:30)
[2017-06-25 22:58] VITALS: BP 108/72; PULSE 92; TEMP 36.4; O2SAT 96
[2017-06-26] MEDS: LACTATED RINGER'S 1000ML 1,000 ML IV SCH ×3 (00:17→15:31)
[2017-06-26 07:02] VITALS: BP 107/72; PULSE 89; TEMP 36.4; O2SAT 96
[2017-06-26] MEDS: OXYCODONE/ACETAMINOPHEN 10/325MG TAB PO PRN ×4 (07:38→21:46)
[2017-06-26] MEDS: DICYCLOMINE HCL 10 MG CAP PO SCH ×4 (07:39→21:47)
[2017-06-26 07:40] LABS: BUN/CREATININE RATIO 9.7 (10-20); CALCIUM 8.8 mg/dl (8.5-10.1); CREATININE 1.4 mg/dl (0.60-1.20); POTASSIUM 4.5 mmol/L (3.5-5.1)
--- NOTE | 2017-06-26 07:52 | Family Medicine Progress Note ---
Progress Note Date of Service Jun 26, 2017.
[2017-06-26] MEDS: CHOLECALCIFEROL 1000 INTER.UNIT TAB PO SCH (08:56)
[2017-06-26] MEDS: BUDESONIDE/FORMOTEROL FUMARATE 80/4.5 60 PUFFS/INHALER INH SCH ×2 (08:56→21:48)
[2017-06-26] MEDS: FLUOXETINE HCL 20 MG CAP PO SCH ×3 (08:56→21:48)
[2017-06-26] MEDS: DONEPEZIL HCL 10 MG TAB PO SCH (08:56)
[2017-06-26] MEDS: BuPROPion SR 150 MG TABCR PO SCH ×2 (08:57→21:48)
[2017-06-26] MEDS: PANTOprazole SOD 40 MG TAB PO SCH ×2 (08:57→21:47)
[2017-06-26] MEDS: SENNA 8.6 MG TAB PO SCH (08:57)
[2017-06-26] MEDS: POTASSIUM CHLORIDE 20 MEQ TABCR PO SCH ×2 (08:57→16:54)
--- NOTE | 2017-06-26 10:11 | Surgery Progress Note ---
Surgery Progress Note Date of Service Jun 26, 2017. Subjective pain about the same, taking Percocet 10 mg every 5 hours, no nausea, had eggs and toast this morning Objective Vital Signs: Date Time Temp Pulse Resp B/P (MAP) Pulse Ox O2 Delivery O2 Flow Rate FiO2 06/26/17 07:15 Room Air 06/26/17 07:02 36.4 89 16 107/72 (84) 96 Room Air 06/26/17 00:00 Room Air 06/25/17 22:58 36.4 92 16 108/72 (84) 96 Room Air 06/25/17 15:58 36.7 95 18 105/69 (81) 94 Room Air 06/25/17 15:45 Room Air Abdomen: soft, + guarding, + tenderness (RUQ) Laboratory Results: Results Past 24 Hours Test 06/26/17 06:26 06/26/17 08:08 Range/Units Sodium Level 140 136-145 mmol/L Potassium Level 4.5 3.5-5.1 mmol/L Chloride Level 109 98-107 mmol/L Carbon Dioxide Level 25 21-32 mmol/L Anion Gap 6.0 3-11 mmol/L Blood Urea Nitrogen 14 7-18 mg/dl Creatinine 1.40 0.60-1.20 mg/dl Est Creatinine Clear Calc Drug Dose 45.3 ml/min Estimated GFR () 51.0 Estimated GFR (Non- 44.0 BUN/Creatinine Ratio 9.7 10-20 Random Glucose 102 70-99 mg/dl Calcium Level 8.8 8.5-10.1 mg/dl Lipase 277 73-393 U/L Bedside Glucose 112 70-90 mg/dl Assessment & Plan abdominal hematoma pain persists, lipase normal this AM will keep NPO after midnight, plan for evacuation of hematoma tomorrow in OR with prior U/S localization
[2017-06-26] MEDS ORDERED: OXYC-88 PO (12:43)
--- NOTE | 2017-06-26 12:53 | Family Medicine Progress Note ---
Progress Note Date of Service Jun 26, 2017. Subjective Pt evaluation today including: conversation w/ patient, physical exam, chart review, conversation w/ dairy feed sales consultant, review of inpatient medication list Pain: 8/10 PO Intake: regular diet Voiding: no voiding problems Patient with continued abdominal pain 8/10 Sharp pain that is constant and worse with deep inspiration She is having sweats at night and is tolerating a regular diet She is no longer having diarrhea into her stoma bag Was seen by Dr. Mckeon this morning and plan is for surgery tomorrow and evacuation of the haematoma Constitutional: + sweats, No fever, No chills Respiratory: No cough, No sputum, No shortness of breath Cardiovascular: No chest pain, No edema, No palpitations Abdomen: + pain, + nausea, No vomiting, No diarrhea, No constipation, No GI bleeding Medications Current Inpatient Medications Medications (Trade) Dose Ordered Sig/Sd Route Start Time Stop Time Status Last Admin Dose Admin Acetaminophen (Tylenol Tab) 650 mg Q4H PRN PO 06/22/17 01:45 07/22/17 01:44 Magnesium Hydroxide (Milk Of Magnesia Susp) 30 ml Q6H PRN PO 06/22/17 01:45 07/22/17 01:44 Ondansetron HCl (Zofran Inj) 4 mg Q6H PRN IV 06/22/17 01:45 07/22/17 01:44 06/25/17 18:29 4 MG Morphine Sulfate (MoRPHine SULFATE INJ) 2 mg Q4 PRN IV 06/22/17 01:45 07/06/17 01:44 06/25/17 18:30 2 MG Pantoprazole Sodium (Protonix Tab) 40 mg BID PO 06/22/17 16:00 07/22/17 15:59 06/26/17 08:57 40 MG Senna (Senokot Tab) 8.6 mg QAM PO 06/23/17 09:00 07/23/17 08:59 Potassium Chloride (Klor-Con Tab) 40 meq BIDM PO 06/23/17 08:30 07/23/17 08:29 06/26/17 08:57 40 MEQ Bupropion HCl (Wellbutrin-Sr Tab) 150 mg BID PO 06/23/17 21:00 07/23/17 20:59 06/26/17 08:57 150 MG Trazodone HCl (Desyrel Tab) 150 mg QPM PO 06/23/17 21:00 07/23/17 20:59 06/25/17 22:30 150 MG Budesonide/ Formoterol Fumarate (Symbicort 80/ 4.5 Inh) 2 puffs BID INH 06/23/17 21:00 07/23/17 20:59 06/26/17 08:56 2 PUFFS Cholecalciferol (Vitamin D Tab) 6,000 inter.unit DAILY PO 06/24/17 09:00 07/24/17 08:59 06/26/17 08:56 6,000 INTER.UNIT Dicyclomine HCl (Bentyl Cap) 10 mg ACHS PO 06/23/17 12:00 07/23/17 11:59 06/26/17 12:40 10 MG Donepezil HCl (Aricept Tab) 10 mg DAILY PO 06/24/17 09:00 07/24/17 08:59 06/26/17 08:56 10 MG Fluoxetine HCl (Prozac Cap) 20 mg TID PO 06/23/17 21:00 07/24/17 08:59 06/26/17 08:56 20 MG Lactated Ringer's 1,000 ml @ 125 mls/hr Q8H IV 06/24/17 16:00 07/24/17 15:59 06/26/17 07:40 125 MLS/HR Oxycodone/ Acetaminophen (Percocet 10-325MG Tab) 1 tab Q4H PRN PO 06/25/17 14:00 07/09/17 13:59 06/26/17 07:38 1 TAB Ioversol (Optiray 320) 100 ml UD PRN IV 06/25/17 15:15 06/29/17 15:14 Objective Vital Signs Date Time Temp Pulse Resp B/P (MAP) Pulse Ox O2 Delivery O2 Flow Rate FiO2 06/26/17 07:15 Room Air 06/26/17 07:02 36.4 89 16 107/72 (84) 96 Room Air 06/26/17 00:00 Room Air 06/25/17 22:58 36.4 92 16 108/72 (84) 96 Room Air 06/25/17 15:58 36.7 95 18 105/69 (81) 94 Room Air 06/25/17 15:45 Room Air Physical Exam Notes: General Appearance: WD/WN, no apparent distress Respiratory/Chest: lungs clear, no respiratory distress, no accessory muscle use Cardiovascular: regular rate, rhythm, no edema, no murmur Abdomen: + abnormal bowel sounds (high pitched), + tenderness (tender in the R side of abdomen and most painful when asked to take a deep breath under the ribs on the right side) Extremities: non-tender, no calf tenderness, normal capillary refill Neurologic/Psychiatric: alert, normal mood/affect, oriented x 3 Skin: normal color, warm/dry, no rash Laboratory Results Results Past 24 Hours Test 06/26/17 06:26 06/26/17 08:08 Range/Units Sodium Level 140 136-145 mmol/L Potassium Level 4.5 3.5-5.1 mmol/L Chloride Level 109 98-107 mmol/L Carbon Dioxide Level 25 21-32 mmol/L Anion Gap 6.0 3-11 mmol/L Blood Urea Nitrogen 14 7-18 mg/dl Creatinine 1.40 0.60-1.20 mg/dl Est Creatinine Clear Calc Drug Dose 45.3 ml/min Estimated GFR () 51.0 Estimated GFR (Non- 44.0 BUN/Creatinine Ratio 9.7 10-20 Random Glucose 102 70-99 mg/dl Calcium Level 8.8 8.5-10.1 mg/dl Lipase 277 73-393 U/L Bedside Glucose 112 70-90 mg/dl Assessment and Plan 47 yo F with Crohn's, on Stelara, s/p ileostomy, s/p cholecystectomy, and s/p L lobe thyroidectomy who presents with long history of abdominal pain, with elevated lipase, nausea, and pain. Likely to be from hematoma Abdominal pain - Ct abdomen negative for pancreatitis and lipase today 277 - Likely to be from hematoma after her cholecystectomy she had in May - Going for aspiration of hematoma in the OR tomorrow with Dr. Mckeon - NPO after midnight - MRCP without any filling defects but did show stable 8cm perihepatic hematoma , had a cholecystecomy in May - For pain, she has 1 Percocet 10-325 as well as Morphine 2mg IV q4h PRN for more severe pain. Chrons disease - On stelera - Has an ileostomy - well controlled Heme positive stools: - Protonix bid Nausea: - Continue Zofran Depression: - Unclear dosing of home dose of Prozac (20mg TID) - will clarify, and for now continue 20mg daily - Will continue Aricept - though unclear of who initiated this as well - Will continue Trazodone and Bupoprion Hx of Goitre, s/p L thyroidectomy - Unclear of current thyroid function, will check a TSH VTE: SCDs. Dispo: Remains on Med/Surg, workup still pending Code status: FULL Continued [facility] stay due to: multiple IV medications needed, other History Resident Physician Supervision Note: I was present with Dr. Hamilton during the history and exam. I discussed the case with the resident and agree with the findings and plan as documented in the note. Any exceptions or clarifications are listed here. Stable right upper quadrant abdominal pain which is controlled with present pain medication regimen but worsening w/ inspiration/activity. Tolerating PO well. General Appearance: WD/WN, no apparent distress Respiratory: chest non-tender, lungs clear, normal breath sounds, no respiratory distress Cardiovascular: normal peripheral pulses, regular rate, rhythm, no edema, no murmur Gastrointestinal: normal bowel sounds, soft, no organomegaly, tenderness (RUQ, s table) Assessment/Plan 47 y/o female h/o Crohn's disease on Stelara, s/p ileostomy, s/p cholecystectomy w/ abdominal pain and elevated lipase Abdominal pain - GI and surgery aware and input appreciated - MRIs negative, lipase WNL - for US and potential surgical intervention tm, NPO p [place] Crohn's dz - continue stelara, zofran PRN, continue PPI Depression - continue prozac, trazodone and buproprion s/p unilateral thyroidectomy - TSH WNL
[2017-06-26 15:28] VITALS: BP 108/67; PULSE 90; TEMP 36.7; O2SAT 97
[2017-06-26] MEDS: MoRPHine SULFATE 2 MG/ML CARP IV PRN (19:30)
[2017-06-26] MEDS: TRAZODONE HCL 50 MG TAB PO SCH (22:38)
--- NOTE | 2017-06-26 22:52 | GASTROENTEROLOGY PROGRESS NOTE ---
DATE: 06/26/2017 GASTROENTEROLOGY INPATIENT PROGRESS NOTE SUBJECTIVE: The patient continues to experience right-sided abdominal pain, again made worse with inspiration. Today's pancreatic enzyme show resolution of lipase level now of 277 down from 2442 yesterday. BUN and creatinine are 14 and 1.4 with creatinine showing a slight rise from baseline at 1.2. Blood count today was not performed. CT scan yesterday to assess for any interim development of pancreatitis did not show inflammation around the pancreas or abnormalities to the pancreas. The spleen, adrenals are also normal. There is a 3 mm kidney stone in the lower pole of the left kidney but without hydronephrosis. There is no retroperitoneal lymphadenopathy, no bowel wall thickening, but there is no change in the 9 x 6 cm right perihepatic collection and again this appears to represent a hematoma. There was trace fluid in the gallbladder fossa consistent with status post cholecystectomy. REVIEW OF SYSTEMS: Otherwise noncontributory by 13-point exam except for mentioned above. The patient stomal output is essentially unchanged and there are no reports of blood by the patient. PHYSICAL EXAMINATION: VITAL SIGNS: Today - blood pressure 108/67, respirations 18, heart rate 90, afebrile 36.7, pulse ox was 97% on room air. GENERAL: Today, the patient is awake, alert and oriented and resting in bed. Overall, she is comfortable but does have pain on palpation in the right upper abdomen. HEENT: Oral mucosa moist. Sclerae are anicteric. HEART: Normal S1, S2. LUNGS: Clear to auscultation. There is normal range of motion. ABDOMEN: Soft, tender in the right upper quadrant area without rebound or guarding. There are no abdominal bruits or masses. I do not appreciate ascites or shifting dullness. EXTREMITIES: Without clubbing, cyanosis or edema. RECTAL: Deferred at this time. MEDICATIONS: Continue with Percocet, Lactated Ringer's, Wellbutrin, Desyrel, fluoxetine, pantoprazole, Zofran, and potassium supplements. IMPRESSION AND PLAN: Patient's biochemical lipase elevation has now resolved, which was abrupt compared to yesterday. LFTs are normal. There is no evidence of pancreatitis or fluid around the pancreas and the size of the suspected hematoma and the perihepatic region remains unchanged. The patient describes that a possible surgical intervention is planned for tomorrow to drain this collection. She did actually advance her diet today to a full meal and this did not seem to bother her. She can continue this except for the pre and perioperative period. Will sign off at this time. All questions answered. Please contact us if we can be of further assistance. LIONEL
[2017-06-26 23:03] VITALS: BP 100/66; PULSE 83; TEMP 36.4; O2SAT 96
[2017-06-27] VITALS (8 sets, daily range): BP systolic 102–123; BP diastolic 62–84; PULSE 74–103; TEMP 36.5–36.9; O2SAT 93–99
[2017-06-27] MEDS: MoRPHine SULFATE 2 MG/ML CARP IV PRN ×2 (00:12→17:50)
[2017-06-27] MEDS: OXYCODONE/ACETAMINOPHEN 10/325MG TAB PO PRN ×3 (06:03→22:13)
[2017-06-27] MEDS ORDERED: ATROPINE SULFATE 0.1 MG/ML 5ML SYR IV PRN (07:30)
[2017-06-27] MEDS ORDERED: ONDANSETRON INJ 2 MG/ML 2 ML VIAL IV PRN (07:30)
[2017-06-27] MEDS ORDERED: FENTANYL CITRATE INJ 50 MCG/1 ML 2 ML VIAL IV PRN (07:30)
[2017-06-27] MEDS ORDERED: HYDROmorphone INJ 1 MG/ML SYR IV PRN (07:30)
[2017-06-27] MEDS ORDERED: EpHEDrine SULFATE INJ 50 MG/ML AMP IV PRN (07:30)
[2017-06-27] MEDS: LACTATED RINGER'S 1000ML 1,000 ML IV SCH ×3 (07:31→15:45)
[2017-06-27] MEDS: POTASSIUM CHLORIDE 20 MEQ TABCR PO SCH ×2 (07:33→17:49)
[2017-06-27] MEDS: DICYCLOMINE HCL 10 MG CAP PO SCH ×4 (07:33→21:56)
[2017-06-27] MEDS: SENNA 8.6 MG TAB PO SCH (07:34)
[2017-06-27] MEDS: CHOLECALCIFEROL 1000 INTER.UNIT TAB PO SCH (07:35)
[2017-06-27] MEDS: BUDESONIDE/FORMOTEROL FUMARATE 80/4.5 60 PUFFS/INHALER INH SCH ×2 (07:35→21:55)
[2017-06-27] MEDS: FLUOXETINE HCL 20 MG CAP PO SCH ×3 (07:35→21:57)
[2017-06-27] MEDS: PANTOprazole SOD 40 MG TAB PO SCH ×2 (07:35→21:56)
[2017-06-27] MEDS: BuPROPion SR 150 MG TABCR PO SCH ×2 (07:36→21:57)
[2017-06-27] MEDS: DONEPEZIL HCL 10 MG TAB PO SCH (07:36)
--- NOTE | 2017-06-27 07:48 | SURGERY PROGRESS NOTE ---
DATE: 06/27/2017 SUBJECTIVE: Yu still has considerable amount of pain in the right flank area over the hematoma from a trocar site, likely developed. We will try conservative therapy, but she is still having a significant amount of pain even out of proportion to what is found physically. This hematoma is probably abdominal wall, about 8 cm. Also of note, her pancreatitis appears to be resolving and her lipase yesterday was 277. Her last vitals showed a temperature of 36.4, pulse 83, respirations 15, blood pressure 100/66. Her hemoglobin has pretty much been stable all along with no drop. This is probably related to the surgery for laparoscopic cholecystectomy. It was somewhat difficult due to her other multiple surgeries about 3 weeks ago. Having said that, we will proceed today with drainage of the abdominal wall hematoma with priorly localization by ultrasound. She is made aware that we may put a drain in there and most likely be discharged home tomorrow.
[2017-06-27 09:17] LABS: BUN/CREATININE RATIO 9.3 (10-20); CALCIUM 8.4 mg/dl (8.5-10.1); CREATININE 1.2 mg/dl (0.60-1.20); POTASSIUM 4.1 mmol/L (3.5-5.1)
--- NOTE | 2017-06-27 10:25 | DIAGNOSTIC IMAGING REPORT ---
ULTRASOUND GUIDED WIRE LOCALIZATION OF RIGHT INTRA-ABDOMINAL HEMATOMA CLINICAL HISTORY: Right upper quadrant hematoma. COMPARISON STUDY: CT of the abdomen June 25, 2017. PROCEDURE: Sonography of the right upper quadrant demonstrated the 8.8 cm right perihepatic collection suggestive of a hematoma. Internal septations were noted. This was targeted for localization. The procedure, risks and benefits were discussed with the patient and informed written consent was obtained. The procedure was performed by Dr. Siegel following a timeout. Skin of the right upper quadrant was prepped and draped in sterile fashion and local anesthesia was achieved with 1% lidocaine. Under direct ultrasound guidance, a 7.5 cm Ann 2 needle with wire was inserted into the center of the collection. The needle was removed. Postprocedure ultrasound demonstrated satisfactory positioning of the wire. The wire was secured at the skin. Patient tolerated the procedure well and no immediate complications were evident. IMPRESSION: Ultrasound guided wire localization of right upper quadrant fluid collection. Electronically signed by: Tone Siegel M.D. 06/27/2017 10:24 AM Dictated Date/Time: 06/27/2017 10:22 AM
[2017-06-27] MEDS ORDERED: PROPOFOL IV EMULSION 10 MG/ML 20 ML VIAL IV ONE (11:27)
[2017-06-27] MEDS ORDERED: LIDOCAINE HCL 2% 2 ML VIAL (20MG/ML) ONE (11:27)
[2017-06-27] MEDS ORDERED: FENTANYL CITRATE INJ 50 MCG/1 ML 2 ML VIAL ONE ×3 (11:28→12:49)
[2017-06-27] MEDS ORDERED: MIDAZOLAM HCL 1 MG/ML 2ML VIAL ONE (11:28)
[2017-06-27] MEDS ORDERED: LIDOCAINE HCL 1% 20 ML VIAL ONE (11:52)
[2017-06-27] MEDS ORDERED: DEXAMETHASONE SOD INJ 4 MG/ML VIAL ONE (12:13)
--- NOTE | 2017-06-27 12:38 | [facility] Operative Report ---
Operative Report Operative Date Jun 27, 2017. Pre-Operative Diagnosis abdominal wall hematoma Post-Operative Diagnosis abdominal wall hematoma Procedure(s) Performed Evacuation Abdominal Hematoma with Prior Localization in Ultrasound Surgeon Dr. Marshal Mckeon Comber Setter Surgeon(s) Lizzie Santizo PA-C Estimated Blood Loss 3ml Findings abd wall hematoma Specimens Microbiology: abdominal wall hematoma Drains 19 jai per stab Indications painful abd wall hematoma Description of Procedure or summary dictated confirmation number [id number] I attest to the content of the Intraoperative Record and any orders documented therein. Any exceptions are noted below.
[2017-06-27] MEDS ORDERED: OXYCODONE/ACETAMINOPHEN 5-325 TAB PO PRN (12:45)
[2017-06-27] MEDS ORDERED: ONDANSETRON 4 MG TAB PO PRN (12:45)
[2017-06-27] MEDS ORDERED: HYDROmorphone INJ 1 MG/ML SYR ONE ×2 (13:14→13:33)
--- NOTE | 2017-06-27 13:48 | OPERATIVE REPORT ---
DATE OF OPERATION: 06/27/2017 PREOPERATIVE DIAGNOSIS: Hematoma abdominal wall status post laparoscopic cholecystectomy approximately 1 month ago. POSTOPERATIVE DIAGNOSIS: Same. PROCEDURE: Evacuation of abdominal wall hematoma with prior ultrasound localization. SURGEON: Dr. Mckeon. UNIVERSITY ARCHIVIST: Lizzie Santizo PA-C. SUMMARY: The patient was brought into the operating room theater after she had an ultrasound guided needle positioning of an abdominal wall hematoma, it actually was probably extraperitoneally. At this point general anesthetic was used. We prepped the area with Betadine solution and properly draped. I made approximately an inch incision after elevating her to the hip on a roll. The incision was then deepened sufficient enough to follow the wire down in a muscle splitting incision after enlarging the incision and using the Deavers we were able to get onto the capsule of this hematoma which we punctured. It was extraperitoneally just below the abdominal wall musculature. Once we entered this a significant amount of blood clot was nonpurulent and appeared to be sterile. We did take cultures. We evacuated it and irrigated the area copiously. At this point, I elected to place a 19 Nazario drain through a separate stab wound, actually we used the same trocar site in the incision and positioned the catheter into the cavity. This was nearly a muscle splitting incision. Therefore, we did not close anything and just the subcutaneous 2-0 Dexon and darshan for skin edges. Dressing was applied. The procedure was tolerated well. Approximately 5 mL, mostly it was old blood that was in a hematoma. The patient was taken to recovery room in good condition. I attest to the content of the Intraoperative Record and any orders documented therein. Any exception s are noted below.
--- NOTE | 2017-06-27 13:56 | Anesthesiology Progress Note ---
Anesthesia Post Op Note Date & Time Jun 27, 2017 at 13:55 Vital Signs Pain Intensity: 7 Vital Signs Past 12 Hours Date Time Temp Pulse Resp B/P (MAP) Pulse Ox O2 Delivery O2 Flow Rate FiO2 06/27/17 13:50 80 16 120/84 99 Nasal Cannula 2 06/27/17 13:40 36.6 73 16 123/87 97 Nasal Cannula 2 06/27/17 13:30 76 16 126/87 98 Nasal Cannula 2 06/27/17 13:20 79 16 128/81 99 Nasal Cannula 2 06/27/17 13:10 81 20 132/97 100 Nasal Cannula 2 06/27/17 13:00 79 20 113/89 100 Oxymask 5 06/27/17 12:50 92 20 136/93 100 Oxymask 10 06/27/17 12:43 36.1 81 20 98/68 98 Oxymask 10 06/27/17 10:44 36.4 82 18 128/97 (107) 95 Room Air 06/27/17 07:43 Room Air 06/27/17 07:15 36.6 74 19 117/74 (88) 96 Room Air Notes Mental Status: alert / awake / arousable, participated in evaluation Pt Amnestic to Procedure: Yes Nausea / Vomiting: adequately controlled Pain: adequately controlled Airway Patency, RR, SpO2: stable & adequate BP & HR: stable & adequate Hydration State: stable & adequate Anesthetic Complications: no major complications apparent
--- NOTE | 2017-06-27 15:39 | Family Medicine Progress Note ---
Progress Note Date of Service Jun 27, 2017. Subjective Pt evaluation today including: conversation w/ patient, physical exam, chart review, conversation w/ [employer] product consultant, review of inpatient medication list PO Intake: good Voiding: no voiding problems Patient with no acute events overnight Went for surgery for removal of haematoma this morning and had a drain placed. Surgery was successful and patient is feeling slightly nauseous post-op but is attempting to eat She says she is no longer having sweats She rates her pain as 10/10. She has morphine q2 prn on order for pain Constitutional: No fever, No chills, No sweats Respiratory: No cough, No wheezing, No shortness of breath Cardiovascular: No chest pain, No edema, No palpitations Abdomen: + pain, + nausea, No vomiting, No diarrhea, No constipation Musculoskeletal: No joint pain, No swelling, No calf pain Skin: No rash, No itch, No new/changing skin lesions Medications Current Inpatient Medications Medications (Trade) Dose Ordered Sig/Sd Route Start Time Stop Time Status Last Admin Dose Admin Acetaminophen (Tylenol Tab) 650 mg Q4H PRN PO 06/22/17 01:45 07/22/17 01:44 Magnesium Hydroxide (Milk Of Magnesia Susp) 30 ml Q6H PRN PO 06/22/17 01:45 07/22/17 01:44 Ondansetron HCl (Zofran Inj) 4 mg Q6H PRN IV 06/22/17 01:45 07/22/17 01:44 06/25/17 18:29 4 MG Morphine Sulfate (MoRPHine SULFATE INJ) 2 mg Q4 PRN IV 06/22/17 01:45 07/06/17 01:44 06/27/17 00:12 2 MG Pantoprazole Sodium (Protonix Tab) 40 mg BID PO 06/22/17 16:00 07/22/17 15:59 06/27/17 07:35 40 MG Senna (Senokot Tab) 8.6 mg QAM PO 06/23/17 09:00 07/23/17 08:59 Potassium Chloride (Klor-Con Tab) 40 meq BIDM PO 06/23/17 08:30 07/23/17 08:29 06/26/17 16:54 40 MEQ Bupropion HCl (Wellbutrin-Sr Tab) 150 mg BID PO 06/23/17 21:00 07/23/17 20:59 06/27/17 07:36 150 MG Trazodone HCl (Desyrel Tab) 150 mg QPM PO 06/23/17 21:00 07/23/17 20:59 06/26/17 22:38 150 MG Budesonide/ Formoterol Fumarate (Symbicort 80/ 4.5 Inh) 2 puffs BID INH 06/23/17 21:00 07/23/17 20:59 06/27/17 07:35 2 PUFFS Cholecalciferol (Vitamin D Tab) 6,000 inter.unit DAILY PO 06/24/17 09:00 07/24/17 08:59 06/27/17 07:35 6,000 INTER.UNIT Dicyclomine HCl (Bentyl Cap) 10 mg ACHS PO 06/23/17 12:00 07/23/17 11:59 06/27/17 07:33 10 MG Donepezil HCl (Aricept Tab) 10 mg DAILY PO 06/24/17 09:00 07/24/17 08:59 06/27/17 07:36 10 MG Fluoxetine HCl (Prozac Cap) 20 mg TID PO 06/23/17 21:00 07/24/17 08:59 06/27/17 07:35 20 MG Lactated Ringer's 1,000 ml @ 125 mls/hr Q8H IV 06/24/17 16:00 07/24/17 15:59 06/27/17 07:31 125 MLS/HR Ioversol (Optiray 320) 100 ml UD PRN IV 06/25/17 15:15 06/29/17 15:14 Ondansetron HCl (Zofran Tab) 4 mg Q8 PRN PO 06/27/17 12:45 07/27/17 12:44 Oxycodone/ Acetaminophen (Percocet 10-325MG Tab) 1 tab Q6 PRN PO 06/27/17 12:45 07/11/17 12:44 Oxycodone/ Acetaminophen (Percocet 5-325mg Tab) 1 tab Q4H PRN PO 06/27/17 12:45 07/11/17 12:44 Miscellaneous Information (Order Awaiting Action) 1 ea QS N/A 06/27/17 16:00 07/27/17 15:59 Miscellaneous Information (Order Awaiting Action) 1 ea QS N/A 06/27/17 16:00 07/27/17 15:59 Objective Vital Signs Date Time Temp Pulse Resp B/P (MAP) Pulse Ox O2 Delivery O2 Flow Rate FiO2 06/27/17 14:29 36.5 81 17 123/83 (96) 97 Nasal Cannula 2.0 06/27/17 14:05 36.5 81 16 120/84 (96) 99 Room Air 06/27/17 14:05 99 Nasal Cannula 2.0 06/27/17 13:50 80 16 120/84 99 Nasal Cannula 2 06/27/17 13:40 36.6 73 16 123/87 97 Nasal Cannula 2 06/27/17 13:30 76 16 126/87 98 Nasal Cannula 2 06/27/17 13:20 79 16 128/81 99 Nasal Cannula 2 06/27/17 13:10 81 20 132/97 100 Nasal Cannula 2 06/27/17 13:00 79 20 113/89 100 Oxymask 5 06/27/17 12:50 92 20 136/93 100 Oxymask 10 06/27/17 12:43 36.1 81 20 98/68 98 Oxymask 10 06/27/17 10:44 36.4 82 18 128/97 (107) 95 Room Air 06/27/17 07:43 Room Air 06/27/17 07:15 36.6 74 19 117/74 (88) 96 Room Air 06/26/17 23:45 Room Air 06/26/17 23:03 36.4 83 15 100/66 (77) 96 Room Air 06/26/17 15:45 Room Air Physical Exam Notes: General Appearance: WD/WN, no apparent distress Respiratory/Chest: lungs clear, no respiratory distress, no accessory muscle use Cardiovascular: regular rate, rhythm, no edema, no murmur Abdomen: + normal bowel sounds, + tenderness (tender in the R side of abdomen, patient with a drain in place at right upper flank, draining dark red blood into bag) Extremities: non-tender, no calf tenderness, normal capillary refill Neurologic/Psychiatric: alert, normal mood/affect, oriented x 3 Skin: normal color, warm/dry, no rash Laboratory Results Results Past 24 Hours Test 06/27/17 08:18 Range/Units Sodium Level 141 136-145 mmol/L Potassium Level 4.1 3.5-5.1 mmol/L Chloride Level 109 98-107 mmol/L Carbon Dioxide Level 25 21-32 mmol/L Anion Gap 7.0 3-11 mmol/L Blood Urea Nitrogen 11 7-18 mg/dl Creatinine 1.20 0.60-1.20 mg/dl Est Creatinine Clear Calc Drug Dose 52.9 ml/min Estimated GFR () 61.5 Estimated GFR (Non- 53.0 BUN/Creatinine Ratio 9.3 10-20 Random Glucose 83 70-99 mg/dl Calcium Level 8.4 8.5-10.1 mg/dl Chemistry Specimen Hemolysis Microbiology Results 06/27/17 Gram Stain, Received Pending 06/27/17 Bacterial Culture, Received Pending Assessment and Plan 47 yo F with Crohn's, on Stelara, s/p ileostomy, s/p cholecystectomy, and s/p L lobe thyroidectomy who presented with long history of abdominal pain, with elevated lipase, nausea, and pain. Abdominal pain - Ct abdomen negative for pancreatitis - Likely to be from hematoma after her cholecystectomy she had in May - Went for incision and drainage of hematoma in the OR today. Drain placed post op and draining dark red blood. Fluid sent for culture - For pain, she has 1 Percocet 10-325 as well as Morphine 2mg IV q4h PRN for more severe pain. Chrons disease - On stelera - Has an ileostomy - well controlled Heme positive stools: - Protonix bid Nausea: - Continue Zofran Depression: - Unclear dosing of home dose of Prozac (20mg TID) - will clarify, and for now continue 20mg daily - Will continue Aricept - though unclear of who initiated this as well - Will continue Trazodone and Bupoprion Hx of Goitre, s/p L thyroidectomy - Unclear of current thyroid function - TSH normal VTE: SCDs. Dispo: Remains on Med/Surg, workup still pending Code status: FULL Continued [facility] stay due to: multiple IV medications needed History Resident Physician Supervision Note: I was present with Dr. Hamilton during the history and exam. I discussed the case with the resident and agree with the findings and plan as documented in the note. Any exceptions or clarifications are listed here. Pt seen and examined at bedside. Postoperatively, pt reports 10/10 right sided abdominal pain which is controlled with pain medication. She has been up to the restroom already but no flatus. Tolerating POI at this point, complaining of sensation of puffiness of the b/l distal extremities. General Appearance: mild distress, obese Eye Exam: bilateral eye PERRL, bilateral eye EOMI Neck: non-tender, full range of motion, supple Respiratory: chest non-tender, lungs clear, normal breath sounds, no respiratory distress Cardiovascular: normal peripheral pulses, regular rate, rhythm, no murmur, other (trace nonpitting edema of the hands) Gastrointestinal: no organomegaly, other (decreased BS but present. TTP over RUQ (minimal palpation). Drain in place w/ sanguinous output) Assessment/Plan 47 y/o female h/o Crohn's disease on Stelara, s/p ileostomy, s/p cholecystectomy w/ abdominal pain and elevated lipase Abdominal pain - GI and surgery aware and input appreciated - pain management for postoperative pain, POD#0 of hematoma evacuation Swelling of hands - will d/c IVF, encourage POI, recheck I/Os Crohn's dz - continue stelara, zofran PRN, continue PPI Depression - continue prozac, trazodone and buproprion s/p unilateral thyroidectomy - TSH WNL
[2017-06-27] MEDS ORDERED: NURSING VERBAL MED ORDER ONE (17:30)
[2017-06-28] MEDS: TRAZODONE HCL 50 MG TAB PO SCH ×2 (00:16→22:44)
[2017-06-28] MEDS ORDERED: OXYCODONE HCL IR 5 MG TAB (IMMEDIATE RELEASE) ONE (02:35)
[2017-06-28 04:00] VITALS: BP 113/72; PULSE 85; TEMP 36.7; O2SAT 94
[2017-06-28] MEDS: OXYCODONE HCL IR 5 MG TAB (IMMEDIATE RELEASE) PO PRN ×8 (05:50→23:28)
--- NOTE | 2017-06-28 07:02 | SURGERY PROGRESS NOTE ---
DATE: 06/28/2017 Yu is alert, coherent. She has expected discomfort at the incision which is about an inch and a half long, but she feels better than she had preoperatively. We evacuated a hematoma and left a Nazario drain in yesterday. The intraoperative findings were discussed with the patient. Her last vitals showed a temperature of 36.7, pulse 85, respirations 16, blood pressure 113/72, O2 sats 94 on room air. Laboratory studies pending this morning, but I would not think there would be any drop in hemoglobin. The abdomen is completely benign. The Nazario drainage, which is minimal, it is old blood, minimal drainage. At this point, the patient could probably go home today and instructed to leave the drain in. She may shower. She may drive and we will see her back in the office on Saturday to evacuate and remove the drain. She really does not need anything for pain other than she had been on some Percocet and we may continue that for a few days. Regarding her recurrent pancreatitis I am not sure the etiology of that but I have asked that she follow up with Dr. Lott for routine appointments.
[2017-06-28 07:21] VITALS: BP 127/78; PULSE 77; TEMP 36.5; O2SAT 95
[2017-06-28 07:27] LABS: HEMATOCRIT 31.4 % (37-47); MEAN CORPUSCULAR HEMOGLOBIN 27.5 pg (25-34); MEAN CORPUSCULAR HGB CONC 30.9 g/dl (32-36); MEAN PLATELET VOLUME 8.7 fL (7.4-10.4); PLATELET COUNT 291 K/uL (130-400); RED BLOOD COUNT 3.53 M/uL (4.2-5.4); WHITE BLOOD COUNT 7.86 K/uL (4.8-10.8)
[2017-06-28 07:54] LABS: BUN/CREATININE RATIO 10.8 (10-20); CREATININE 1.3 mg/dl (0.60-1.20)
[2017-06-28] MEDS: DICYCLOMINE HCL 10 MG CAP PO SCH ×4 (08:36→21:30)
[2017-06-28] MEDS: POTASSIUM CHLORIDE 20 MEQ TABCR PO SCH ×2 (08:37→17:33)
[2017-06-28] MEDS: BUDESONIDE/FORMOTEROL FUMARATE 80/4.5 60 PUFFS/INHALER INH SCH ×2 (08:38→21:30)
[2017-06-28] MEDS: DONEPEZIL HCL 10 MG TAB PO SCH (08:38)
[2017-06-28] MEDS: FLUOXETINE HCL 20 MG CAP PO SCH ×3 (08:39→21:31)
[2017-06-28] MEDS: PANTOprazole SOD 40 MG TAB PO SCH ×2 (08:39→21:31)
[2017-06-28] MEDS: SENNA 8.6 MG TAB PO SCH (08:40)
[2017-06-28] MEDS: CHOLECALCIFEROL 1000 INTER.UNIT TAB PO SCH (08:40)
[2017-06-28] MEDS: BuPROPion SR 150 MG TABCR PO SCH ×2 (08:41→21:31)
[2017-06-28] MEDS: ACETAMINOPHEN 325 MG TAB PO SCH ×4 (08:46→21:30)
[2017-06-28] MEDS ORDERED: PANTOprazole SOD 40 MG TAB PO SCH (09:00)
--- NOTE | 2017-06-28 13:45 | Anesthesiology Progress Note ---
Anesthesia Post Op Note Date & Time Jun 28, 2017 at 13:45 Vital Signs Pain Intensity: 8.0 Vital Signs Past 12 Hours Date Time Temp Pulse Resp B/P (MAP) Pulse Ox O2 Delivery O2 Flow Rate FiO2 06/28/17 07:55 Room Air 06/28/17 07:21 36.5 77 18 127/78 (94) 95 Room Air 06/28/17 04:00 36.7 85 16 113/72 (86) 94 Room Air Notes Mental Status: alert / awake / arousable, participated in evaluation Pt Amnestic to Procedure: Yes Nausea / Vomiting: adequately controlled Pain: adequately controlled, improving with treatment Airway Patency, RR, SpO2: stable & adequate BP & HR: stable & adequate Hydration State: stable & adequate Anesthetic Complications: no major complications apparent
[2017-06-28 15:09] VITALS: BP 122/76; PULSE 76; TEMP 36.5; O2SAT 95
--- NOTE | 2017-06-28 18:28 | Family Medicine Progress Note ---
Progress Note Date of Service Jun 28, 2017. Subjective Pt evaluation today including: conversation w/ patient Pain: much improved since surgery Constitutional: No fever, No chills Objective Physical Exam General Appearance: no apparent distress Eyes: PERRL, EOMI ENT: hearing grossly normal Neck: supple, thyroid normal, no JVD Respiratory/Chest: lungs clear, normal breath sounds, no respiratory distress, no accessory muscle use Cardiovascular: regular rate, rhythm, no edema Abdomen: normal bowel sounds, soft, + tenderness (RUQ, dressing clean dry intact, drain in place), + pertinent finding (illeostomy in place) Neurologic/Psychiatric: alert Assessment and Plan 47 yo F with Crohn's, on Stelara, s/p ileostomy, s/p cholecystectomy, and s/p L lobe thyroidectomy who presented with long history of abdominal pain, with elevated lipase, nausea, and pain. Admission is for Abdominal pain that supposedly worsened after recent cholecystectomy (05/30/17) Abdominal pain ? pancreatitis vs. franki-hepatic hematoma vs. msk/neuropathic pain s/p POD#1 of hematoma drainage - Ct abdomen negative for pancreatitis, though lipase was elevated and of etiology uncertain GI consulted and while pancreatitis was a concern; MRCP and CT were negative for that. ?hemoconcentration from high ostomy outputs? Lipase improved and normalized with IVF - possibly from hematoma after her cholecystectomy she had in May- though pain seemed out of proportion to size of hematoma- she seems to be better though after the drainage. - Drain in place with sanguinous drainage. ~ 90 cc Fluid sent for culture - Percocet 10-325 as well as Morphine 2mg IV q4h PRN for more severe pain. - continues to depend on ~q2h pain regimen. PDMP queried- has infrequent use of narcs, tramadol but not significant. Chron's disease- stable - On stelera - Has an ileostomy - adequate drainage Heme positive stools: - Protonix bid Nausea: - Continue Zofran Depression: - Prozac - Will continue Aricept - Will continue Trazodone and Bupoprion Hx of Goitre, s/p L thyroidectomy - Unclear of current thyroid function - TSH normal VTE: SCDs. Dispo: Remains on Med/Surg for pain controla History Resident Physician Supervision Note: I was present with Dr. Peacock during the history and exam. I discussed the case with the resident and agree with the findings and plan as documented in the note. Any exceptions or clarifications are listed here. Pt reports stable right upper quadrant operative site pain which is still severe , though markedly improved compared to prior to hematoma excision. Tolerating pain w/ oxycodone 5mg q2h. Ambulating to the bathroom with pain. Tolerating POI well. Having BM. Urinating well. General Appearance: no apparent distress, obese Respiratory: chest non-tender, lungs clear, normal breath sounds, no respiratory distress Cardiovascular: normal peripheral pulses, regular rate, rhythm, no edema, no murmur Gastrointestinal: normal bowel sounds, soft, no organomegaly, tenderness (RUQ TTP w/ guarding) Skin Characteristics: normal color, warm/dry, other (RUQ operative site C/D/I, drain w/ sanguinous output) Assessment/Plan 47 y/o female h/o Crohn's disease on Stelara, s/p ileostomy, s/p cholecystectomy w/ abdominal pain and elevated lipase Abdominal pain - GI and surgery aware and input appreciated - pain management for postoperative pain, POD#1 of hematoma evacuation Swelling of hands - resolved Crohn's dz - continue stelara, zofran PRN, continue PPI Depression - continue prozac, trazodone and buproprion s/p unilateral thyroidectomy - TSH WNL
[2017-06-28 23:21] VITALS: BP 115/80; PULSE 75; TEMP 36.5; O2SAT 96
[2017-06-29] MEDS: OXYCODONE HCL IR 5 MG TAB (IMMEDIATE RELEASE) PO PRN ×5 (02:39→18:25)
[2017-06-29 07:23] VITALS: BP 121/82; PULSE 74; TEMP 36.4; O2SAT 96
[2017-06-29 07:30] VITALS: O2SAT 96
[2017-06-29] MEDS: ACETAMINOPHEN 325 MG TAB PO SCH ×3 (08:02→15:33)
[2017-06-29] MEDS: DICYCLOMINE HCL 10 MG CAP PO SCH ×3 (08:02→17:09)
--- NOTE | 2017-06-29 08:06 | Family Medicine Progress Note ---
Progress Note Date of Service Jun 29, 2017. Objective Vital Signs Date Time Temp Pulse Resp B/P (MAP) Pulse Ox O2 Delivery O2 Flow Rate FiO2 06/29/17 07:23 36.4 74 16 121/82 (95) 96 Room Air 06/28/17 23:30 Room Air 06/28/17 23:21 36.5 75 18 115/80 (92) 96 Room Air 06/28/17 15:15 Room Air 06/28/17 15:09 36.5 76 16 122/76 (91) 95 Room Air Resident Tracking Resident Involvement: Resident Care Provided Care Provided: Adult Hospital Medicine
[2017-06-29 08:23] LABS: BUN/CREATININE RATIO 12.2 (10-20); CALCIUM 8.2 mg/dl (8.5-10.1); CREATININE 1.3 mg/dl (0.60-1.20); POTASSIUM 3.9 mmol/L (3.5-5.1)
[2017-06-29] MEDS: POTASSIUM CHLORIDE 20 MEQ TABCR PO SCH ×2 (08:40→17:45)
[2017-06-29] MEDS: BUDESONIDE/FORMOTEROL FUMARATE 80/4.5 60 PUFFS/INHALER INH SCH (08:41)
[2017-06-29] MEDS: DONEPEZIL HCL 10 MG TAB PO SCH (08:41)
[2017-06-29] MEDS: FLUOXETINE HCL 20 MG CAP PO SCH ×2 (08:42→14:15)
[2017-06-29] MEDS: PANTOprazole SOD 40 MG TAB PO SCH (08:42)
[2017-06-29] MEDS: SENNA 8.6 MG TAB PO SCH (08:42)
[2017-06-29] MEDS: BuPROPion SR 150 MG TABCR PO SCH (08:43)
[2017-06-29] MEDS: CHOLECALCIFEROL 1000 INTER.UNIT TAB PO SCH (08:43)
--- NOTE | 2017-06-29 08:59 | Surgery Progress Note ---
Surgery Progress Note Date of Service Jun 29, 2017. Subjective Status post incision and drainage of abdominal wall hematoma, drain with minimal output, doing well. Tolerating diet, sore but pain controlled. She would like to go home today. Objective Vital Signs: Date Time Temp Pulse Resp B/P (MAP) Pulse Ox O2 Delivery O2 Flow Rate FiO2 06/29/17 07:23 36.4 74 16 121/82 (95) 96 Room Air 06/28/17 23:30 Room Air 06/28/17 23:21 36.5 75 18 115/80 (92) 96 Room Air 06/28/17 15:15 Room Air 06/28/17 15:09 36.5 76 16 122/76 (91) 95 Room Air Physical Exam: Nazario drainage (10cc dark serosanguinous, no active bleeding) Head: normocephalic, atraumatic Neck: supple, no adenopathy, thyroid normal, no JVD, no carotid bruits, trachea midline Respiratory/Chest: chest non-tender, lungs clear, normal breath sounds, no respiratory distress, no accessory muscle use Cardiovascular: regular rate, rhythm, no edema, no gallop, no JVD, no murmur Abdomen: normal bowel sounds, non tender, non distended, soft, no organomegaly , no pulsatile mass Incision(s): clean, dry, intact, no erythema, no drainage Extremities: normal range of motion, non-tender, normal inspection, no pedal edema, no calf tenderness, normal capillary refill, pelvis stable Laboratory Results: Results Past 24 Hours Test 06/29/17 07:41 Range/Units Sodium Level 139 136-145 mmol/L Potassium Level 3.9 3.5-5.1 mmol/L Chloride Level 107 98-107 mmol/L Carbon Dioxide Level 26 21-32 mmol/L Anion Gap 6.0 3-11 mmol/L Blood Urea Nitrogen 16 7-18 mg/dl Creatinine 1.30 0.60-1.20 mg/dl Est Creatinine Clear Calc Drug Dose 48.8 ml/min Estimated GFR () 55.8 Estimated GFR (Non- 48.1 BUN/Creatinine Ratio 12.2 10-20 Random Glucose 90 70-99 mg/dl Calcium Level 8.2 8.5-10.1 mg/dl Assessment & Plan s/p I&D abdominal wall hematoma, doing well, minimal drainage recs: okay to d/c home follow up with Dr. Mckeon on Saturday return precautions given wound care and activity limitations reviewed rec prn percocet or oxycodone for pain please provide drain care instructions Carlito Gutierrez, DO
[2017-06-29 15:24] VITALS: BP 99/63; PULSE 74; TEMP 36.9; O2SAT 96
--- NOTE | 2017-06-29 16:26 | Discharge Instructions ---
Discharge Instructions Date of Service Jun 29, 2017. Admission Reason for Admission: Liver Hematoma, Pancreatitis Discharge Discharge Diagnosis / Problem: Abdominal wall hematoma Discharge Goals Goal(s): Decrease discomfort Activity Recommendations Activity Limitations: as noted below Lifting Limitations: gradually increase as tolerated Exercise/Sports Limitations: gradually increase as tolerated . Instructions / Follow-Up Instructions / Follow-Up You were admitted to hospital with abdominal pain likely caused by a collection of blood that may have collected after your recent gallbladder surgery. This was drained during this admission. Upon discharge, the drain is still in place and your pain is better controlled with medication. At home, continue the pain medication, Percocet as needed. You have been provided with a short supply, and you may discuss further medication management at your follow up appointment. You have been advised on appropriate activity, drain and wound care management. If you have any questions or new concerns, you are advised to call Dr. Mckeon's office or the hospital as necessary. Your follow up with Dr. Mckeon has been scheduled for 07/01/17. If you are unable to attend the appointment, please call the office in advance. You should continue all other pain medication as before. Thank you for allowing us to participate in your care. Current Hospital Diet Patient's current hospital diet: Low Fat Diet Discharge Diet Recommended Diet: Low Fat Diet Procedures Procedures Performed: Evacuation Abdominal Hematoma with Prior Localization in Ultrasound Pending Studies Studies pending at discharge: no Laboratory Results Lipid Panel Test 06/23/17 07:28 Range/Units Triglycerides Level 390 H 0-150 mg/dl Medical Emergencies . Who to Call and When: Medical Emergencies: If at any time you feel your situation is an emergency, please call 911 immediately. . Non-Emergent Contact Non-Emergency issues call your: Primary Care Provider, Surgeon Call Non-Emergent contact if: temperature is above 100.5, your pain is worsening, wound has increased drainage, wound has increased redness . . "Provider Documentation" section prepared by Kristie Chavez. . VTE Core Measure Inpt VTE Proph given/why not?: SCD's [place] Drug Monitoring Program Search Results: patient reviewed within database, no issues identified Drug Monitoring Findings: has infrequent use of narcs, tramadol but not significant. Resident Tracking Resident Involvement: Resident Care Provided Care Provided: Adult Hospital Medicine
--- NOTE | 2017-06-29 16:30 | Discharge Summary ---
Discharge Summary Date of Service Jun 29, 2017. (Alka. Chavez MD) Discharge Summary Admission Date: Jun 22, 2017 at 00:39 Discharge Date: Jun 29, 2017 Discharge Disposition: Home Principal Diagnosis: Abdominal wall hematoma Immunizations: Have You Had Influenza Vaccine: Unknown History of Tetanus Vaccine?: Unknown History of Pneumococcal: Unknown History of Hepatitis B Vaccine: Unknown Procedures: I&D of abdominal wall hematoma with DIANA drain Consultations: General surgery (Alka. Chavez MD) Medication Reconciliation Changed Medications: Oxycodone/Acetaminophen 5MG/325MG (Percocet 5MG/325MG) Tab 1 TABLETS PO Q2H PRN for Pain, #30 TAB 0 Refills (Changed from: 1-2 TABLETS; Q4H ; Refills: ) Continued Medications: Budesonide/Formoterol Fumarate (Symbicort 80/4.5 Inhaler) Aero 2 PUFFS INH BID, INHALER Bupropion Hcl (Bupropion Hcl Er) 150 Mg Tab 1 TAB PO BID Cholecalciferol (Vitamin D 1000 Unit) 1,000 Unit Cap 6000 INTER.UNIT PO DAILY, CAP Dicyclomine Hcl (Bentyl) 10 Mg Cap 10 MG PO QID, CAP Donepezil Hydrochloride (Aricept) 10 Mg Tab 1 TAB PO am for 30 Days, #30 TAB 5 Refills Fluoxetine (Prozac) 20 Mg Cap 20 MG PO TID, CAP Ondansetron Hcl (Zofran) 4 Mg Tab 4 MG PO Q8 PRN for Nausea, TAB Pantoprazole (Protonix) 40 Mg Tab 40 MG PO DAILY, #30 TAB Trazodone Hcl (Desyrel) 150 Mg Tab 150 MG PO QPM, TAB Ustekinumab (Stelara) 90 Mg/Ml Inj 90 MG IM [id number] [vitamin b12 inj.] () 1 SYR SQ MONTHLY Discharge Exam Patient well at time of discharge. On going pain well controlled by analgesia. RLQ abdominal pain with some associated right back pain, rated 6/10 baseline, down to 1-2/10 with medication. No further nausea or vomiting. Tolerating diet. Ambulating. Voiding and having bowel movements without issue. No fevers, chills. No CP, SOB. Physical Exam: General Appearance: WD/WN, no apparent distress ENT: hearing grossly normal, pharynx normal Neck: supple, no adenopathy Respiratory/Chest: lungs clear, normal breath sounds, no respiratory distress, no accessory muscle use Cardiovascular: regular rate, rhythm, no murmur, normal peripheral pulses Abdomen / GI: normal bowel sounds, soft, + tenderness (RLQ. Right flank pain also.), + pertinent finding (drain from right abdomen containing sanguinous fluid) Extremities: normal inspection, no calf tenderness, normal capillary refill , no pedal edema Neurologic/Psychiatric: alert, oriented x 3 Skin: normal color, warm/dry, no rash, + pertinent finding (dressings dry) Lymphatic: no adenopathy (Alka. Chavez MD) Hospital Course 47 year old female with Crohn's disease, on Stelara, s/p ileostomy, s/p cholecystectomy, and s/p L lobe thyroidectomy who presented with long history of abdominal pain, with elevated lipase, nausea, and pain. Admitted for abdominal pain that supposedly worsened after recent cholecystectomy (05/30/17) Abdominal pain ? pancreatitis vs. franki-hepatic hematoma vs. msk/neuropathic pain s/p POD#1 of hematoma drainage - CT abdomen negative for pancreatitis, though lipase was elevated and of etiology uncertain GI consulted and while pancreatitis was a concern; MRCP and CT were negative for that. ?hemoconcentration from high ostomy outputs? Lipase improved and normalized with IVF - Pain possibly from hematoma after her cholecystectomy she had in May- though pain seemed out of proportion to size of hematoma- she seems to be better though after the drainage. - Drain in place with sanguinous drainage. ~ 30 cc Fluid sent for culture - Percocet 5-325mg provided for pain - continues to depend on ~q3h pain regimen. PDMP queried- has infrequent use of narcs, tramadol but not significant. - Follow up with general surgeon, Dr. Mckeon on 07/01/17 for wound care and further pain management, if deemed necessary Chron's disease- stable - Continue Stelara - Has an ileostomy - adequate drainage Heme positive stools: - Continue Protonix daily Nausea: - Continue Zofran Depression: - Prozac - Continue Aricept, Trazodone and Bupropion Hx of Goitre, s/p L thyroidectomy - Unclear of current thyroid function - TSH normal Total Time Spent: Less than 30 minutes This includes examination of the patient, discharge planning, medication reconciliation, and communication with other providers. (Alka. Chavez MD) Discharge Instructions Please refer to the electronic Patient Visit Report (Discharge Instructions) for additional information. (Alka. Chavez MD) Follow-Up - General surgeon, Dr. Mckeon on 07/01/17 (Alka. Chavez MD) Additional Copies To Jose Raul Allen M.D.; Marshal Mckeon M.D. Resident Tracking Resident Involvement: Resident Care Provided Care Provided: [facility] (Alka. Chvaez MD) History Resident Physician Supervision Note: I was present with Dr. Chavez during the history and exam. I discussed the case with the resident and agree with the findings and plan as documented in the note. Any exceptions or clarifications are listed here. Pt seen and examined at bedside. No acute events overnight. Tolerating pain well on present medication regimen. Ambulating short distances well. Tolerating POI. BM normal. (Jordan Sharpe MD) General Appearance: WD/WN, no apparent distress Respiratory: chest non-tender, lungs clear, normal breath sounds, no respiratory distress Cardiovascular: normal peripheral pulses, regular rate, rhythm, no edema, no murmur Gastrointestinal: normal bowel sounds, soft, no organomegaly, other (RUQ TTP stable from previous w/ guarding) (Jordan Sharpe MD) Assessment/Plan 47 y/o female h/o Crohn's disease on Stelara, s/p ileostomy, s/p cholecystectomy w/ abdominal pain and elevated lipase Abdominal pain - GI and surgery consulted, POD#2 of hematoma evacuation - continue oral pain medication at home and close follow up w/ Dr. Mckeon Mon Crohn's dz - continue stelara, PPI Depression - continue prozac, trazodone and buproprion s/p unilateral thyroidectomy - TSH WNL (Jordan Sharpe MD)
[2017-06-29 17:00] VITALS: BP 99/63; PULSE 74; TEMP 36.9; O2SAT 96
[2017-06-29] MEDS ORDERED: OXYC-57 PO (17:31)
== END 2017-06-29 18:36 | disposition home or self-care (01) | DRG 908 ==
LOC: C.MSW 06-22 00:39
PROVIDERS: ADMIT Hospitalist; ATTEND Family Medicine
PROC: 0KCK0ZZ Extirpation of Matter from Right Abdomen Muscle, Open Approach (ICD-10-PCS; principal; 2017-06-27 11:00)
DX: M96.841 Postprocedural hematoma of a musculoskeletal structure following other procedure (principal); K50.90 Crohn's disease, unspecified, without complications; R19.5 Other fecal abnormalities; L40.9 Psoriasis, unspecified; F32.9 Major depressive disorder, single episode, unspecified; F41.9 Anxiety disorder, unspecified; K21.9 Gastro-esophageal reflux disease without esophagitis; F03.90 Unspecified dementia, unspecified severity, without behavioral disturbance, psychotic disturbance, mood disturbance, and anxiety; J45.909 Unspecified asthma, uncomplicated; Z79.899 Other long term (current) drug therapy; Z93.2 Ileostomy status; Z90.49 Acquired absence of other specified parts of digestive tract; Z87.19 Personal history of other diseases of the digestive system; Z87.891 Personal history of nicotine dependence; Z82.49 Family history of ischemic heart disease and other diseases of the circulatory system; Y83.8 Other surgical procedures as the cause of abnormal reaction of the patient, or of later complication, without mention of misadventure at the time of the procedure

== ENCOUNTER 2018-11-19 09:43 | Inpatient (IN) ==
--- NOTE | 2018-11-10 10:53 | Anesthesiology Consultation ---
Date of Service November 10, 2018 Assessment & Plan (1) Encounter for pre-operative examination: Chart Review Chart Review: Acceptable Risk for Surgery and Patient NOT seen in Pre Admission Testing Type and screen to be drawn morning of surgery. Consults Requested none History Surgery Operation Date: 11/19/18 11:50 Proposed Procedures p Right Robotic Video Assisted Thoracoscopy with Right Upper Lobe Wedge Resection, Possible Right Upper Lobectomy with Mediastinal Lymphadenectomy - Damon Jeter MD, FACS Height/Weight Height: 5 ft 1.5 in Weight: 81.647 kg Allergies Allergy/AdvReac Type Severity Reaction Status Date / Time No Known Allergies Allergy Verified 11/10/18 08:16 Medications Home Medications Medication Instructions Recorded Confirmed Last Taken bupropion HCl SR 150 mg tablet,12 150 mg PO BID 07/15/18 11/10/18 10/30/18 15:00 hr sustained-release cholecalciferol (vitamin D3) 1,000 6,000 units PO DAILY cap 07/15/18 11/10/18 10/31/18 06:00 unit capsule donepezil 10 mg tablet 10 mg PO QAM 07/15/18 11/10/18 10/30/18 07:00 fluoxetine 20 mg capsule 20 mg PO TID cap 07/15/18 11/10/18 10/30/18 15:00 montelukast 10 mg tablet 10 mg PO QPM 07/15/18 11/10/18 10/30/18 07:[address] 40 mg granules 40 mg PO QAM 07/15/18 11/10/18 10/30/18 07:00 delayed-release for susp in packet trazodone 150 mg tablet 150 mg PO QPM PRN tab 07/15/18 11/10/18 Unknown ustekinumab 90 mg/mL subcutaneous 90 mg SQ MONTHLY ml 07/15/18 11/10/18 Unknown syringe Albuterol Nebulizer 1 dose INHALATION UD PRN 10/20/18 11/10/18 10/20/18 Vitamin B12 Injections 1 dose IM UD 10/20/18 11/10/18 10/29/18 albuterol sulfate 1 - 2 puff INHALATION Q6H PRN 10/20/18 11/10/18 10/22/18 Past Medical History Medical History Anxiety (Chronic) Crohns disease (Chronic) Depressive disorder (Chronic) Hypothyroidism (Chronic) Left lumbar radiculitis (Chronic) Lumbago (Chronic) Myofascial pain (Chronic) Psoriasis (Chronic) Sacroiliitis (Chronic) Former smoker (Resolved) Acid reflux PT FEELS LIKE ACID REFLUX WORSENING RECENTLY Alzheimer's disease, early onset DR ALBARRAN Asthma COPD (chronic obstructive pulmonary disease) History of pancreatitis Ileostomy bag changed ILEOSTOMY BAG CURRENT Lung nodule Short-term memory loss Shortness of breath PROBLEM OVER LAST THREE MONTHS/NEEDS TO REST AFTER 5 STEPS Past Surgical History Surgical History History of ileostomy (Resolved) X2 S/P thyroidectomy (Resolved 01/07/14) History of bronchoscopy 10/31/2018 [facility]. MAC 3, Grade 1 view. 8.5 ETT. no issues. History of carpal tunnel release of both wrists History of colonoscopy History of laparoscopic cholecystectomy Social History Smoking Status: Former smoker tobacco type: cigarettes Smoking cigarettes per day: 10 YRS AGO Do You Dip or Chew Tobacco: No Smoking End Date: 10 years ago Hx Alcohol Use: No Hx Substance Use: No substance use type: does not use Testing Electrocardiogram Date: 08/07/18 Findings: + NSR @ (85) Prolonged QT. Other Testing PFT's: Minimal obstructive lung defect. Mild response to bronchodilator. Laboratory Results 10/22/2018 BMP: glucose 103. BUN 22, creat 1.3. Na 139, K 3.7, Cl 108, bicarb 20, ca 8.3 CBC: WBC 11, Hgb 13.2, hct 41.4, plt 161.
[~2018-11-19 09:43] MED LIST changes: -BUPR-267 PO; -CHOL100027 PO; -DONE10TA12 PO; -FLUO20CA35 PO; +LR 15ML/HR IV SCH; +MIDAZOLAM HCL 1 MG/ML 2ML VIAL ONE; -OXYC-57 PO; -SYMIN/8045 INH; -TRAZ1TAB52 PO; -USTE90IN IM; -VITAMIN B SQ; +fentaNYL citrate 100 MCG/2 ML VIAL ONE
--- NOTE | 2018-11-19 11:45 | History & Physical Bridge Note ---
Date of Service November 19, 2018 History & Physical Bridge Note I have examined the patient, reviewed the History & Physical and in the interval since the performance of the History & Physical I have noted the following changes of clinical significance: no changes noted
[2018-11-19] MEDS ORDERED: ePHEDrine sulfate 50 MG/ML AMP IV PRN (11:50)
[2018-11-19] MEDS ORDERED: DEXAMETHASONE SOD INJ 4 MG/ML VIAL IV PRN (11:50)
[2018-11-19] MEDS ORDERED: ATROPINE SULFATE 0.1 MG/ML 10ML SYR IV PRN (11:50)
[2018-11-19] MEDS ORDERED: ONDANSETRON INJ 2 MG/ML 2 ML VIAL IV PRN (11:50)
[2018-11-19] MEDS ORDERED: KETOROLAC 30 MG/ML VIAL IV PRN (11:50)
[2018-11-19] MEDS ORDERED: BUPIVACAINE 0.5 % 5 MG/1 ML MPF 30ML VIAL ONE (12:00)
[2018-11-19] MEDS ORDERED: BUPIVACAINE LIPOSOME 1.3% 266 MG/20 ML VIAL ONE (12:00)
[2018-11-19] MEDS ORDERED: SODIUM CHLORIDE 0.9% PF 50 ML VIAL ONE (12:00)
[2018-11-19] MEDS ORDERED: fentaNYL citrate 100 MCG/2 ML VIAL ONE ×2 (13:24→16:22)
[2018-11-19] MEDS ORDERED: PROPOFOL IV EMULSION 10 MG/ML 20 ML VIAL IV ONE (14:09)
[2018-11-19] MEDS ORDERED: LIDOCAINE HCL 2% 2 ML VIAL/AMP(20MG/ML) INFIL ONE (14:09)
[2018-11-19] MEDS ORDERED: NEOSTIGMINE METHYLSULFATE 5 MG/5 ML SYR ONE (14:09)
[2018-11-19] MEDS ORDERED: DEXAMETHASONE SOD INJ 4 MG/ML VIAL ONE (14:09)
[2018-11-19] MEDS ORDERED: PHENYLEPHRINE 100MCG/ML 5ML SYR ONE (14:09)
[2018-11-19] MEDS ORDERED: ONDANSETRON INJ 2 MG/ML 2 ML VIAL ONE (14:09)
[2018-11-19] MEDS ORDERED: GLYCOPYRROLATE 0.2 MG/ML VIAL ONE (14:09)
[2018-11-19] MEDS ORDERED: PHENYLEPHRINE HCL 10 MG/ML VIAL ONE (14:09)
[2018-11-19] MEDS ORDERED: ROCURONIUM BROMIDE 10 MG/ML 5 ML VIAL ONE ×3 (14:09→16:19)
[2018-11-19] MEDS ORDERED: SURGICEL ABSORB HEMOSTAT 2IN X 14IN TOP ONE ×2 (14:31→17:07)
[2018-11-19] MEDS ORDERED: KEFZOL SPECIAL PROCEDURE STOCK 1 GM ADDVIAL IV ONE (14:36)
[2018-11-19] MEDS ORDERED: TISSEEL FIBRIN SEALANT 4ML TOP ONE (14:42)
[2018-11-19] MEDS ORDERED: CEFAZOLIN 250 MG/ML 1 GM VIAL ONE (14:42)
[2018-11-19] MEDS ORDERED: CEFAZOLIN 2000MG 2,000 MG/15 ML SYR IV SCH (14:45)
--- NOTE | 2018-11-19 16:16 | Post Operative Brief Note ---
Immediate Post Op Note v1 Date of Surgery November 19, 2018 Pre & Post Diagnosis Operation Date: 11/19/18 11:50 Pre-Op Diagnosis: Right Lung Mass (Cavitary Lesion) Post-Op Diagnosis: RCarcinoma right upper lobe Procedure Operation Date: 11/19/18 11:50 Actual Procedures p Right Robotic Video-Assisted Thoracoscopy with Right Upper Lobe Wedge Resection, Right upper Lobectomy with Mediastinal Lymphadenectomy(Right) - Damon Jeter MD, FACS Surgeon Damon Jeter MD, FACS [employer] Dayna LUCIANO Estimated Blood Loss 150 Findings Consistent with Post-Op Diagnosis Drains Coude Catheter and Dennis Catheter
[2018-11-19] MEDS ORDERED: METOCLOPRAMIDE HCL INJ 5 MG/ML 2 ML VIAL IV ONE (16:42)
[2018-11-19] MEDS: fentaNYL citrate 100 MCG/2 ML VIAL IV PRN ×2 (16:57→17:10)
--- NOTE | 2018-11-19 17:01 | XRay Report ---
XR chest 1V portable CLINICAL HISTORY: RUL postoperative COMPARISON STUDY: 10/31/2017 FINDINGS: Right-sided chest tube in position. Small right apical pneumothorax with a pleural separati on at 6 mm at. Enlargement mediastinum and right hilum. Slight progression of parenchymal infiltrativ e process left base. IMPRESSION: 1. Postoperative changes as noted. 2. Right hilar and mediastinal fullness, in part projectional. 3. Small right apical pneumothorax. 4. Slightly progressive left basilar infiltrate. The above report was generated using voice recognition software. It may contain grammatical, syntax or spelling errors. Electronically signed by: Casey Pierce M.D. 11/19/2018 5:00 PM
[2018-11-19] MEDS: HYDROmorphone INJ 1 MG/ML SYRINGE IV PRN ×4 (17:22→17:44)
[2018-11-19] MEDS ORDERED: METOPROLOL TARTRATE 1 MG/ML VIAL IV ONE (17:34)
[2018-11-19] MEDS ORDERED: METOPROLOL TARTRATE 1 MG/ML VIAL IV PRN (17:37)
--- NOTE | 2018-11-19 17:53 | Anesthesiology Progress Note ---
Date of Service November 19, 2018 Anesthesia Post Procedure Vital Signs Vital Signs: Temp Pulse Pulse Pulse Resp BP BP 11/19/18 17:45 95 H 19 115/93 11/19/18 17:38 108 H 133/95 11/19/18 17:35 108 H 18 127/93 11/19/18 17:25 106 H 16 125/85 11/19/18 17:15 104 H 17 136/89 11/19/18 17:05 106 H 18 140/94 11/19/18 16:55 109 H 24 134/116 H 11/19/18 16:48 36.2 C L 108 H 21 170/117 H 11/19/18 10:26 37 C 95 H 20 166/109 H Pulse Ox 11/19/18 17:45 96 11/19/18 17:38 11/19/18 17:35 97 11/19/18 17:25 97 11/19/18 17:15 96 11/19/18 17:05 98 11/19/18 16:55 97 11/19/18 16:48 98 11/19/18 10:26 96 Pain Intensity Back: Pain Intensity: 8 Right Shoulder: Pain Intensity: 7 Notes Mental Status: alert / awake / arousable Patient Amnestic to Procedure: Yes Nausea / Vomiting: adequately controlled Pain: adequately controlled Airway Patency, RR, SpO2: stable & adequate BP & HR: stable & adequate Hydration State: stable & adequate Anesthetic Complications: no major complications apparent
[2018-11-19] MEDS ORDERED: ALBUTEROL 0.5% NEB SOLN 2.5 MG/0.5 ML VIAL INH PRN (18:28)
[2018-11-19] MEDS ORDERED: TRAZODONE HCL 50 MG TAB PO PRN (18:28)
[2018-11-19] MEDS: ACETAMINOPHEN 1,000 MG/100 ML VIAL IV SCH (19:18)
[2018-11-19 19:30] LABS: Prothrombin Time 10.5 Seconds (9.0-12.0)
[2018-11-19 19:41] LABS: Creatinine Clr Calc Pharmacy 45.9 ml/min; Est GFR (African American) 49.4; Est GFR (Non-African American) 42.6
[2018-11-19] MEDS: MONTELUKAST SODIUM 10 MG TABLET PO SCH (21:43)
[2018-11-19] MEDS: BuPROPion SR 150 MG TABCR PO SCH (21:43)
[2018-11-19] MEDS: DOCUSATE SODIUM 100 MG CAP PO SCH (21:43)
[2018-11-19] MEDS: OXYCODONE HCL IR 5 MG TAB (IMMEDIATE RELEASE) PO PRN (21:51)
[2018-11-19] MEDS: D5W AND 1/2NSS 1,000 ML IV SCH (21:58)
[2018-11-20] MEDS: ALBUTEROL HFA 8 GM INHALER INH PRN ×3 (00:18→10:52)
[2018-11-20] MEDS: MoRPHine SULFATE 4 MG/ML 1 ML CARP\\VIAL IV PRN ×4 (00:28→15:50)
[2018-11-20] MEDS: METOCLOPRAMIDE HCL INJ 5 MG/ML 2 ML VIAL IV SCH ×3 (00:28→15:49)
[2018-11-20] MEDS: ACETAMINOPHEN 1,000 MG/100 ML VIAL IV SCH (04:08)
[2018-11-20] MEDS: OXYCODONE HCL IR 5 MG TAB (IMMEDIATE RELEASE) PO PRN ×3 (06:12→20:24)
[2018-11-20 06:45] LABS: Basophils # (auto) 0.02 K/uL (0-0.2); Basophils % (auto) 0.1 %; Eosinophils # (auto) 0.01 K/uL (0-0.5); Eosinophils % (auto) 0.1 %; Hematocrit (blood only) 36.4 % (37-47); Hemoglobin 11.6 g/dL (12.0-16.0); Immature Granulocytes # (auto) 0.09 K/uL (0.00-0.02); Immature Granulocytes % (auto) 0.5 %; Lymphocytes # (auto) 1.62 K/uL (1.2-3.4); Lymphocytes % (auto) 8.2 %; Mean Corpuscular Volume 85.8 fL (80-100); Mean Platelet Volume 9.4 fL (7.4-10.4); Monocytes # (auto) 1.35 K/uL (0.11-0.59); Monocytes % (auto) 6.8 %; Neutrophils # (auto) 16.75 K/uL (1.4-6.5); Neutrophils % (auto) 84.3 %; Platelet Count 240 K/uL (130-400); RDW Coefficient of Variation 15.3 % (11.5-14.5); RDW Standard Deviation 48.3 fL (36.4-46.3); Red Blood Count 4.24 M/uL (4.2-5.4); White Blood Count 19.84 K/uL (4.8-10.8)
[2018-11-20 06:47] LABS: Mean Corpuscular Hgb Conc 31.9 g/dL (32-36)
[2018-11-20 07:02] LABS: BUN Creatinine Ratio 14.4 (10-20); Creatinine Clr Calc Pharmacy 50.1 ml/min; Est GFR (African American) 54.9; Est GFR (Non-African American) 47.4; Potassium 3.5 mmol/L (3.5-5.1)
--- NOTE | 2018-11-20 07:30 | XRay Report ---
XR chest 1V portable HISTORY: 48 years-old Female RUL follow-up study in a patient with right-sided pneumothorax and post operative changes of the right lung. COMPARISON: Chest radiograph 11/19/2018, chest CT 10/24/2018. TECHNIQUE: Portable AP view of the chest FINDINGS: Cardiac silhouette is enlarged, unchanged. Postoperative changes of the right lung with unchanged rig ht hilar prominence. Emphysema. Chest tube is noted with distal tip terminating adjacent to the right hilum. Mild right hilar elevation. Mild pulmonary vascular congestion with subsegmental bibasilar op acities. Right-sided pneumothorax has increased in size from comparison study, now with pleural separ ation at the right lung apex of 3.9 cm, previously measuring up to 1.9 cm when measured in a similar fashion on yesterday's study. IMPRESSION: 1. Postoperative changes of the right lung with increased size of the right apical pneumothorax. 2. Right-sided chest tube distal tip terminates adjacent to the right hilum. 3. Cardiomegaly. 4. Bibasilar opacities suggestive of atelectasis. The above report was generated using voice recognition software. It may contain grammatical, syntax o r spelling errors. Electronically signed by: Jean Thorpe M.D. 11/20/2018 7:29 AM
--- NOTE | 2018-11-20 08:02 | Operative Report ---
DATE OF OPERATION: 11/19/2018 PREOPERATIVE DIAGNOSIS: Cavitary lesion, right upper lobe. POSTOPERATIVE DIAGNOSIS: Nonsmall cell lung carcinoma, right upper lobe. PROCEDURES: 1. Robot-assisted thoracoscopic wedge resection, right upper lobe mass with frozen section. 2. Robot-assisted thoracoscopic right upper lobectomy. 3. Mediastinal lymphadenectomy. SURGEON: Damon Jeter MD CERAMIC TILER: ANKITA Wood (MrMarjorie Braswell was present for the entire case was present at the patient's bedside while I was at the console and he closed the skin incisions at conclusion.) ANESTHESIA: General anesthesia, endotracheal intubation with a double lumen tube. INDICATIONS FOR PROCEDURE: Yu Isidro is a 48-year-old with history of cigarette smoking, has a persistent cough and had a cavitary lesion form in her right upper lobe. She also had some lymphadenopathy and I performed an endobronchial ultrasound with biopsy and I also did a navigational bronchoscopy. We did not get an answer. I explained to the patient that it would be difficult for me to say whether this was a carcinoma or not without removing it and I thought we could wedge this out. On 11/19/2018, the patient was brought to the operating room and underwent an uncomplicated robotic surgery. There were really very little in the way of adhesions, although she had a few. I wedged out what I palpated; however, Dr. Elmer Higgins from pathology did a frozen section and did not see any abnormalities suggestive of a malignancy. I carefully palpated again and did a wedge biopsy of another mass and this came back as a carcinoma. 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 We then performed a right upper lobectomy and mediastinal lymphadenectomy. She tolerated it well, was extubated in the room with negligible blood loss. DESCRIPTION OF PROCEDURE: The patient brought to operating room and laid in supine position. General anesthesia induced. Endotracheal intubation performed with a double lumen tube. The patient was placed in the left lateral decubitus position, right chest prepped and draped in usual sterile fashion. After appropriate timeout had been called and prophylactic antibiotics given, an 8 mm port was placed just anterior to mid axillary line about the seventh interspace. A 5-mm thoracoscope was placed seen that we were in proper position and carbon dioxide was insufflated. We had good isolation of the lung. Another 8-mm port was placed just lateral to the costal margin in about the sixth interspace and then we put another 8 mm port [address] in the seventh interspace posteriorly and then a 5-mm port and a 10 cm further away in about the ninth interspace. We also placed a 12-mm tiler's assistant's port between the 2 anterior ports just above the diaphragm. Upon going in, I saw an abnormality. I could palpate. I did not feel we would see a mass per se because this was a cystic lesion and I wedged out a generous area in this region and opened up the cystic mass. This was sent for frozen section and I also, cultured this. Dr. Elmer Higgins performed a frozen section, did not see evidence of malignancy. While waiting for the frozen section, I performed a lymph node dissection beginning at the inferior pulmonary ligament, which I took down and took a level IX node and took to level VIII node, took a large packet of nodes in the level VII area and biopsied the level X and level XI areas and cleaned off the upper lobe bronchus. I went above the azygos vein and biopsied the level II and level IV nodes, coming anteriorly and biopsied several 10 and 11 nodes and the middle lobe vein from the upper lobe vein and the arteries from the veins by removing the lymph node packet in the level X area. Frozen section came back as no evidence of cancer; however, I was concerned because we did not really see much in the way of abnormalities. I palpated further and felt another, what I thought was a mass; however, is a bit surprised that it was solid. It was rather deep also. This reason, I wedged this out and sent this off for frozen section and this came back as probable adenocarcinoma which was mucin-producing. After this, we elected to proceed with a resection. I fired an Endo-MICHELLE stapler across the superior pulmonary vein draining just the upper lobe. I divided it just above its confluence with the middle lobe vein. This opened up things quite nicely after our prior dissection and I was able to biopsy truncus anterior without difficulty with an Endo-MICHELLE stapler. This freed up the bronchus very nicely and I divided this with an Endo-MICHELLE stapler. I then fired staplers along the fissure between the middle lobe and upper lobe and lower lobe and handed the specimen off. Frozen section showed the bronchial margin to be free of tumor. We really did not have much of an air leak. We irrigated this out and I was quite pleased with this. We did do an Exparel block by mixing 266 mg of Exparel with 250 mL of normal saline, and 30 mL of 0.25% bupivacaine. We injected each of our port sites prior to making incision and then performed an intercostal nerve block intrathoracically starting in the second interspace and marking all way down to the eleventh. A 24-Norwegian chest tube was placed through the camera port and directed up to the apex and sutured in place with heavy silk suture. This was directed thoracoscopically. After we had removed the lobe, we did put it in an Endobag and delivered through the tiler's assistant's port, which had to be opened a couple of centimeters. The larger ports were closed with 0 Vicryl for the muscle layers and 4-0 Monocryl was used in running subcuticular fashion to approximate the wound edges. The patient had no air leak in her chest tube and I thought she looked quite good. I closely inspected the middle lobe thoracoscopically after the lung was inflated and it did not appear there was a chance for torsion or there was a fairly broad attachment between the lower lobe and the middle lobe. She tolerated it well, was extubated in room, and transferred to the postanesthesia care unit in stable condition. I attest to the content of the Intraoperative Record and any orders documented therein. Any exception s are noted below.
[2018-11-20] MEDS: FLUOXETINE HCL 20 MG CAP PO SCH (08:04)
[2018-11-20] MEDS: CHOLECALCIFEROL 1,000 UNITS TAB PO SCH (08:04)
[2018-11-20] MEDS: PANTOprazole 40 MG TAB PO SCH (08:04)
[2018-11-20] MEDS: DOCUSATE SODIUM 100 MG CAP PO SCH ×2 (08:05→20:24)
[2018-11-20] MEDS: BuPROPion SR 150 MG TABCR PO SCH ×2 (08:05→20:24)
[2018-11-20] MEDS: DONEPEZIL HCL 10 MG TAB PO SCH (08:07)
[2018-11-20] MEDS: D5W AND 1/2NSS 1,000 ML IV SCH (08:10)
[2018-11-20] MEDS: ENOXAPARIN INJ 40 MG/0.4 ML SYR SQ SCH (08:10)
--- NOTE | 2018-11-20 09:17 | Progress Note ---
DATE: 11/20/2018 Ms. Isidro is seen today. She is on room air. She has been ambulating in the hallway. She is voiding well. She is complaining of some pain. I reviewed her x-ray and there is concern about a pneumothorax, but I am not concerned about that. She has good fluctuation in her chest tube and has no air leak. Her drainage is also not very high. The fullness in her right hilum I think is the mediastinum being pulled over. I think actually she looks quite good. She does have wheezing on today's exam and I am a bit concerned about it. I am going to ask the child care centre director to look at her to see if they would add anything. I am a bit hesitant to add steroids but she has been on them before. Her creatinine is at baseline today at 1.31. ASSESSMENT AND PLAN: Postop day #1, status post robot-assisted thoracoscopic upper lobectomy and mediastinal lymphadenectomy for a non-small cell lung carcinoma. We are going to proceed with removing her IV, pulmonary evaluation, and probably discharge tomorrow.
[2018-11-20] MEDS ORDERED: INFLUENZA VIRUS QUAD VACCINE 0.5 ML SYR IM ONE (09:45)
[2018-11-20] MEDS ORDERED: INFLUENZA ADMINISTRATION CHARGE ONE (09:45)
[2018-11-20] MEDS: ACETAMINOPHEN 325 MG TAB PO SCH ×3 (10:35→22:13)
[2018-11-20] MEDS: ALBUT/IPRATROP 3MG/0.5MG NEB 3 ML VIAL NEB SCH ×3 (15:08→22:57)
[2018-11-20] MEDS: methylPREDNISolone 80 MG in SYRINGE 0 ML IV SCH ×2 (15:11→22:13)
--- NOTE | 2018-11-20 15:28 | Consultation Report ---
DATE OF CONSULTATION: 11/20/2018 CONSULTATION REQUESTED BY: Damon Jeter MD REASON FOR CONSULTATION: Persistent shortness of breath and tightness in her chest. SUBJECTIVE: A 48-year-old female, morbidly obese, was brought in for the robot-assisted thoracoscopic wedge resection, right upper lobe mass with frozen section, robot-assisted thoracoscopic right upper lobectomy and mediastinal lymphadenectomy. The patient was diagnosed with nonsmall cell lung cancer, right upper lobe after she was biopsied for cavitary lesion, right upper lobe. She is a 48-year-old female who is carrying a diagnosis of asthma/chronic obstructive pulmonary disease. She used to smoke in the past, which she quit multiple years ago. She was seen in Dr. Jeter's office for cough, sputum and increasing shortness of breath and tightness in her chest. 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 According to the patient, she has been on steroids practically every week and she is also put on at least 35-30 pounds of the weight in last 2-3 months. The patient also had an outpatient pulmonary function test done from her pulmonary physician and that revealed her FVC of 2.34 liters that was 82% and post-bronchodilator FVC was 2.44 which was 86%, only 4% change. FEV1 was 1.81 liters, 76%. Post-bronchodilator FEV1 was 1.86, which was 83% and only 6% change. Her FEV1/FVC was 77% and post-bronchodilator was 80%. Her small airways were significantly narrowed and FIF50% was only 22% post-bronchodilator. Lung volumes were consistent with a vital capacity of 82%, total lung capacity of 92%, RV of 112. The pulmonary function test was consistent with mild obstructive lung disease with no significant change post-bronchodilator. REVIEW OF SYSTEMS: As mentioned above. According to the patient, she has been complaining of increasing shortness of breath with any kind of exertion as well as activities. Also, she desaturated to 87% with her walking. She was also short of breath. According to her, she has been short of breath on multiple occasions and lately for about 6-8 months, it has been getting worse and she follows with a crab butcher and she has been on inhalers as well as prednisone from him. She denies having any headache, dizziness or syncopal episode. She has some cough with sputum. Denies having any fever, chills or hemoptysis. Also denies having any nausea, vomiting or abdominal pain. She does not have any blood in the stool, urine or painful micturition. Also, denies having any swollen extremities. PAST MEDICAL HISTORY: Significant for: 1. Asthma/chronic obstructive pulmonary disease. 2. Bullous emphysema. 3. Cavitary lesion of the lung, which was biopsied and reported as nonsmall cell lung carcinoma, right upper lobe. 4. History of cholelithiasis. 5. Chronic cholecystitis. 6. Costochondritis. 7. History of Crohn's disease. 8. Gastroesophageal reflux. 9. Previous history of smoking. 10. Thyroid nodule. PAST SURGICAL HISTORY: Hernia repair, ileostomy, thyroid surgery, cholecystectomy with cholangiography, section and carpal tunnel syndrome. FAMILY HISTORY: Mother has a history of diabetes mellitus as well as hypertension. Aunt, family history of malignant neoplasm of the breast. SOCIAL HISTORY: She used to smoke in the past, which she quit about 10 years ago. She smoked for about 20 years. She denies any alcohol or drug abuse. CURRENT MEDICATIONS: She is on Wellbutrin SR 150 mg p.o. twice a day, vitamin D, Aricept 10 mg p.o. q.a.m., Singulair 10 mg p.o. q. 5 p.m., Protonix 40 mg p.o. daily, Colace 100 mg p.o. twice a day, Reglan 10 mg IV q. 8 hours, Prozac 60 mg p.o. daily, Lovenox 40 mg subQ daily, Tylenol 650 mg p.o. q. 6 hours. OBJECTIVE: GENERAL: Middle-aged female, morbidly obese, sitting in the chair, not in any acute distress. VITAL SIGNS: Her blood pressure is 140/81, pulse is 102, respiratory rate was 14, temperature is 36.9, and pulse ox is 98% on nasal cannula 2 liters. Her input was 4800 and output was 1655, positive balance of 3155. HEENT: Pupils are reactive to light. There is no cervical or supraclavicular adenopathy. No jugular venous distention. Nasal passages are clear. Sinuses are nontender. CHEST: Bilateral air entry with few scattered rhonchi on the right side and also has some expiratory wheezes. No crackles heard. HEART: S1, S2 heard, regular rate and rhythm. No murmur could be appreciated. ABDOMEN: Soft, obese, nontender. Bowel sounds are positive. EXTREMITIES: No clubbing, no edema, nontender calf muscles. NEUROLOGIC: Limited study which is grossly nonfocal. LABORATORY DATA: WBC 19.84, H and H 11.6/36.4 and her platelets are 240. Differential count is normal. PT/INR was 1.0. Her sodium is 135, potassium 3.5, chloride 101, CO2 is 25, anion gap was 8, BUN 19, creatinine 1.31, glucose 136, calcium 8.0. Chest x-ray, postoperative changes of the right lung with increased size of the right apical pneumothorax. Right-sided chest tube distal tip terminates just into the right hilum, cardiomegaly, bibasilar opacities suggestive of atelectasis. IMPRESSION AND PLAN: A 48-year-old female admitted for robotic-assisted thoracoscopic wedge resection, right upper lobe mass with frozen section for the cavitary lesion/right upper lobe mass. 1. Cavitary lesion/right upper lobe mass. 2. Nonsmall cell carcinoma of the lung, right upper lobe. 3. Asthma/chronic obstructive pulmonary disease. 4. Morbid obesity. 5. Possibility of obstructive sleep apnea syndrome. 6. History of Crohn's disease. 7. History of smoking. I have reviewed patient's pulmonary function test, which is consistent with mild obstructive lung disease. Her dyspnea is multifactorial including possibility of mild COPD as well as her chronic debilitating condition. Also, morbid obesity. There is also possibility of obstructive sleep apnea syndrome. She has been on and off on prednisone practically every 2-3 weeks for 4-6 months. She has been also on nebulizer treatment as well as inhalers from outpatient. I am going to start her on DuoNebs q. 4 hours, also give her 4 doses of IV Solu-Medrol 80 mg q. 8 hours x4 doses and then discontinued. We are also going to monitor her fluid status. If she continues to have positive balance, we will consider giving her IV Lasix. Also, she was recommended for the oxygen from outpatient pulmonary practice. She feels better with the oxygen. I am going to give her 2 liters of O2 at this time and monitor her very closely. We are going to continue with all other management as prescribed. I have also noticed that she may benefit from outpatient sleep studies and CPAP machine. I have spent greater than 55 minutes of clinical time. Thank you very much for allowing me to participate in the care of your patient. If you have got any further questions, please do not hesitate to contact me and I will follow this case with you. LIONEL
[2018-11-20] MEDS: MONTELUKAST SODIUM 10 MG TABLET PO SCH (20:24)
[2018-11-21] MEDS: MoRPHine SULFATE 4 MG/ML 1 ML CARP\\VIAL IV PRN ×4 (00:08→19:37)
[2018-11-21] MEDS: ALBUT/IPRATROP 3MG/0.5MG NEB 3 ML VIAL NEB SCH ×6 (02:51→23:39)
[2018-11-21] MEDS: OXYCODONE HCL IR 5 MG TAB (IMMEDIATE RELEASE) PO PRN ×4 (03:15→21:20)
[2018-11-21] MEDS: ACETAMINOPHEN 325 MG TAB PO SCH ×4 (04:23→22:18)
[2018-11-21] MEDS: methylPREDNISolone 80 MG in SYRINGE 0 ML IV SCH ×2 (05:49→14:04)
--- NOTE | 2018-11-21 08:17 | XRay Report ---
XR chest 1V portable HISTORY: 48 years-old Female RUL follow-up study in a patient with postoperative changes of the righ t lung and prior right pneumothorax COMPARISON: Chest radiograph 11/20/2018 TECHNIQUE: Portable AP view of the chest FINDINGS: Postoperative changes of the right lung with unchanged right hilar prominence. Cardiac silhouette is unchanged. Mild right hemidiaphragmatic elevation with bibasilar opacities. Improved aeration of the bilateral lungs with resolution of the previously described pleural effusions. Right-sided chest tube appears stable. Slightly decreased size of the right apical pneumothorax, now with pleural separatio n of 3.1 cm, previously 3.9 cm. IMPRESSION: 1. Postoperative changes of the right lung with stable positioning of the right-sided chest tube. 2. Slightly decreased size of the right apical pneumothorax. The above report was generated using voice recognition software. It may contain grammatical, syntax o r spelling errors. Electronically signed by: Jean Thorpe M.D. 11/21/2018 8:16 AM
[2018-11-21] MEDS: FLUOXETINE HCL 20 MG CAP PO SCH (08:24)
[2018-11-21] MEDS: DONEPEZIL HCL 10 MG TAB PO SCH (08:24)
[2018-11-21] MEDS: DOCUSATE SODIUM 100 MG CAP PO SCH ×2 (08:24→21:16)
[2018-11-21] MEDS: CHOLECALCIFEROL 1,000 UNITS TAB PO SCH (08:25)
[2018-11-21] MEDS: BuPROPion SR 150 MG TABCR PO SCH ×2 (08:25→21:16)
[2018-11-21] MEDS: PANTOprazole 40 MG TAB PO SCH (08:25)
[2018-11-21] MEDS: ENOXAPARIN INJ 40 MG/0.4 ML SYR SQ SCH (08:25)
--- NOTE | 2018-11-21 10:43 | Surgery Progress Note ---
Date of Service November 21, 2018 Assessment & Plan (1) Non-small cell cancer of right lung: -pt. is s/p robotic RUL POD #2 today -due to apical pneumothorax will keep CT in place today and repeat CXR tomorrow -continue ambulation, coughing, deep breathing and use of IS -pain control measures are in place -due to wheezing pulmonary consulted: -nebulizers and steroids have been implemented -they feel pt. will require oxygen at home (this was being consider as an outpt), so will obtain a 2-step prior to d/c -lovenox is in place for DVT prevention Subjective Pt. notes she has joceline ambulating in hallway and gets "winded when she does so." She is tolerating oral intake and has had a BM this am. No difficulty voiding. Physical Exam 2 Vital Signs (Past 24 Hours): Last Vital Signs Temp 36.5 C 11/21/18 08:01 Pulse 106 H 11/21/18 08:01 Resp 14 11/21/18 08:01 BP 156/96 H 11/21/18 08:01 Pulse Ox 95 11/21/18 08:01 Physical Exam: CT in place--no air leak noted Constitutional: well developed and well nourished; no acute distress Respiratory: no respiratory distress and no labored breathing BS are decreased at bases R>L, faint end expiratory wheezing noted Cardiovascular: Rate/Rhythm: regular rate and regular rhythm Musculoskeletal: no calf tenderness Results & Data Diagnostic Findings CXR today shows a small apical pneumothorax
[2018-11-21] MEDS ORDERED: HydrALAZINE HCL 20 MG/ML VIAL IV ONE ×2 (15:57→18:22)
--- NOTE | 2018-11-21 18:10 | Pulmonology Progress Note ---
Date of Service November 21, 2018 Assessment & Plan (1) COPD exacerbation: The patient was started on IV Solu-Medrol as well as nebulizer treatment and we are going to continue with that. She seems to be improving on current plan of care. (2) Hypoxia: The patient is hypoxemic on room air. Currently she is on 2 L and she is oxygenating in the mid 90s. We are going to make arrangement for the home oxygen for this patient. I have discussed this case with thoracic surgery. Subjective The patient overall is doing beter. Breathing and cough has improved while she is on inhallers and also nebs and steroids and also 2 L NC O2. The patient is also able to ambulate with the help. Physical Exam 2 Vital Signs (Past 24 Hours): Temp 36.5 C 11/21/18 15:31 Pulse 111 H 11/21/18 15:50 Resp 16 11/21/18 15:49 BP 174/107 H 11/21/18 17:20 Pulse Ox 98 11/21/18 15:49 Physical Exam: GENERAL: The patient is morbidly obese and is resting comfortably not in acute distress. HEENT. Pupils are reactive to light. There is no cervical or supraclavicular adenopathy. NECK. Neck is supple, no JVD, no lymphadenopathy. RESPIRATORY: Bilateral good air entry, no wheezing, basal crackles, no rhonchi heard. CARDIOVASCULAR: S1-S2 heard. No murmur no rub no gallops heard. CHEST: No abnormalities were detected. GASTROINTESTINAL/ABDOMEN: Abdomen is soft, nontender, bowel sounds are positive , no mass felt. MUSCULOSKELETAL: No clubbing no edema nontender calf muscles. SKIN: No rash, no lesion seen. NEUROLOGIC: The patient is alert, awake, oriented x3 and moving all his extremities. PSYCHIATRIC: The patient is cooperative and not anxious. LYMPHATIC: No cervical or supraclavicular or inguinal lymph nodes detected. Results & Data Diagnostic Findings Labs are reviewed. CXR is also reviewed. XR chest 1V portable HISTORY: 48 years-old Female RUL follow-up study in a patient with postoperative changes of the right lung and prior right pneumothorax COMPARISON: Chest radiograph 11/20/2018 TECHNIQUE: Portable AP view of the chest FINDINGS: Postoperative changes of the right lung with unchanged right hilar prominence. Cardiac silhouette is unchanged. Mild right hemidiaphragmatic elevation with bibasilar opacities. Improved aeration of the bilateral lungs with resolution of the previously described pleural effusions. Right-sided chest tube appears stable. Slightly decreased size of the right apical pneumothorax, now with pleural separation of 3.1 cm, previously 3.9 cm. IMPRESSION: 1. Postoperative changes of the right lung with stable positioning of the right- sided chest tube. 2. Slightly decreased size of the right apical pneumothorax. The above report was generated using voice recognition software. It may contain grammatical, syntax or spelling errors. Electronically signed by: Jean Thorpe M.D. 11/21/2018 8:16 AM
[2018-11-21] MEDS ORDERED: LISINOPRIL 5 MG TAB PO ONE (18:21)
--- NOTE | 2018-11-21 18:28 | Consultation ---
Date of Consultation November 21, 2018 Assessment & Plan (1) Hypertension: 48 y/o F Hx Crohn's, psoriasis, COPD. Recent diagnosis of a RUL mass - bronchogenic CA. The pt underwent a RUL wedge resection 11/19. She has a chest tube in place 2 days post-op due to an apical pneumothorax. She had been hypertensive going into surgery and this has persisted after. She states she was not previously diagnosed with HTN, however, during her last PCP visit it was mentioned that her blood pressure was high. Her blood pressure has ranged from the 160s to the 180s. She describes pain at the surgical site and a feeling of dyspnea since surgery but does not describe any acute symptoms at the time of our evaluation. She is ambulatory and tolerating PO. 1) Hypertension - she was provided with a dose of Hydralazine by the surgical service. We will give her a dose of Lisinopril to gauge effect as I suspect this is s chronic issue exacerbated by pain and discomfort. She should be placed on a low sodium diet. As her pressure is over 180 at times, she is not likely to respond to a single agent. If she responds to Lisinopril, we can trend her renal function AM and start this daily in addition to either Norvasc or a diuretic at first. Would avoid a B nel as she is being treated for COPD exacerbation presently. 2) Post-op - she appears to be recovering well but needed to retain the chest tube due to an apical pneumothorax. Additional management per surgery. 3) CA - pending pathology on the surgical specimen and subsequent staging - f/u with oncology 4) COPD - she is being managed by the metallurgical laboratory assistant and is currently receiving inhalers and steroids. She will likely need 02 for a period on discharge. 5) Crohn's - Stellara can be continued, however, it caries a risk of infecion and may slow healing. Decision to hold should be discussed with her alley cleaner who would have a better handle on the severity of her disease Total time for this consult including review of labs, meds, imaging, records - discussion with pt and surgery service - 35 min Present on Admission?: Yes History of Present Illness Reason for Consultation: Hypertension post-op Requesting Physician: [place] Attending Physician: Damon Jeter MD, FACS History of Present Illness 48 y/o F Hx Crohn's, psoriasis, COPD. Recent diagnosis of a RUL mass - bronchogenic CA. The pt underwent a RUL wedge resection 11/19. She has a chest tube in place 2 days post-op due to an apical pneumothorax. She had been hypertensive going into surgery and this has persisted after. She states she was not previously diagnosed with HTN, however, during her last PCP visit it was mentioned that her blood pressure was high. Her blood pressure has ranged from the 160s to the 180s. She describes pain at the surgical site and a feeling of dyspnea since surgery but does not describe any acute symptoms at the time of our evaluation. She is ambulatory and tolerating PO. PMH: 1) Crohn's - treated with Stelara 2) Psoriasis 3) COPD 4) GERD 5) Obese Surgical: 1) Carpal tunnel release 2) C section 3) Hernia repair 4) Ileostomy Social: Quit smoking 2004, does not drink alcohol Family: DM, HTN, breast CA Allergies Allergy/AdvReac Type Severity Reaction Status Date / Time No Known Allergies Allergy Verified 11/19/18 10:17 Home Medications Home Medications Medication Instructions Recorded Confirmed Type bupropion HCl SR 150 mg tablet,12 150 mg PO BID 07/15/18 11/19/18 History hr sustained-release cholecalciferol (vitamin D3) 1,000 6,000 units PO DAILY cap 07/15/18 11/19/18 History unit capsule donepezil 10 mg tablet 10 mg PO QAM 07/15/18 11/19/18 History fluoxetine 20 mg capsule 20 mg PO TID cap 07/15/18 11/19/18 History montelukast 10 mg tablet 10 mg PO QPM 07/15/18 11/19/[address] 40 mg granules 40 mg PO QAM 07/15/18 11/19/18 History delayed-release for susp in packet trazodone 150 mg tablet 150 mg PO QPM PRN tab 07/15/18 11/19/18 History ustekinumab 90 mg/mL subcutaneous 90 mg SQ MONTHLY ml 07/15/18 11/19/18 History syringe Albuterol Nebulizer 1 dose INHALATION UD PRN 10/20/18 11/19/18 History Vitamin B12 Injections 1 dose IM UD 10/20/18 11/19/18 History albuterol sulfate 1 - 2 puff INHALATION Q6H PRN 10/20/18 11/19/18 History Patient History Social History marital status: Life Partner Current Living Situation: Other Current Living Situation Comment: CHILDREN 11 & 13 Other Information That Helps Us Care for You: No Feels Safe at Home: Yes Safety Concerns: Feels Safe At This Time Smoking Status: Former smoker Tobacco Type: cigarettes Cigarettes per Day: 10 YRS AGO Do You Dip or Chew Tobacco: No Smoking End Date: 10 years ago Hx Alcohol Use: No Hx Substance Use: No Beliefs That Will Affect Care: None Communication Ability: Effective Review of Systems Gen: Denies fevers, night sweats, rigors, fatigue, malaise, weight loss/gain ENT: Denies congestion, throat pain, hearing loss Eyes: Denies acute visual changes CV: Denies CP, palpitations Pulmonary: Describes peristent dypnea/SOB - pin at surgical/chest tube site GI: Denies N/V, diarrhea, constipation Neuro: Denies acute or unilateral weakness, acute gait impairment, headache or acute visual changes Musculoskeletal: Denies joint pain, inflammation Endocrine: Denies polydipsia, polyuria Skin: Denies acute rashe or ulcers Physical Exam 2 Vital Signs (Past 24 Hours): Last Vital Signs Temp 36.5 C 11/21/18 15:31 Pulse 111 H 11/21/18 15:50 Resp 16 11/21/18 15:49 BP 174/107 H 11/21/18 17:20 Pulse Ox 98 11/21/18 15:49 Physical Exam: General: Overweight, middle-aged F, AAO x 3, no distress ENT: No erythema or exudates, no thrush Eyes: JAMES, EOMI Head and neck: Normocephalic, atraumatic, No JVD, neck is supple. Chest/heart: Nontender, S1,2, RRR, no murmurs, no gallops - a chest tube is in place with blood-tinged fluid Lungs: Air entry int the R lung is reduced - effort is poor Abdomen: Nontender, nondistended, BS+ Neuro: AAO x 3, speech is clear, no unilateral weakness or loss of sensation, coordination intact Musculoskeletal: No joint inflammation, muscle tenderness, FROM Skin: No acute rashes or ulcers Extremities: No clubbing, cyanosis, edema
[2018-11-21 18:36] LABS: Hematocrit (blood only) 35.1 % (37-47); Hemoglobin 11.3 g/dL (12.0-16.0); Immature Granulocytes # (auto) 0.19 K/uL (0.00-0.02); Immature Granulocytes % (auto) 0.9 %; Lymphocytes # (auto) 0.79 K/uL (1.2-3.4); Lymphocytes % (auto) 3.6 %; Mean Corpuscular Volume 86.5 fL (80-100); Mean Platelet Volume 9.5 fL (7.4-10.4); Monocytes # (auto) 0.79 K/uL (0.11-0.59); Monocytes % (auto) 3.6 %; Neutrophils % (auto) 91.9 %; Platelet Count 263 K/uL (130-400); RDW Coefficient of Variation 15.1 % (11.5-14.5); RDW Standard Deviation 47.7 fL (36.4-46.3); Red Blood Count 4.06 M/uL (4.2-5.4); White Blood Count 21.67 K/uL (4.8-10.8)
[2018-11-21 18:54] LABS: BUN Creatinine Ratio 10.2 (10-20); Calcium 8.5 mg/dl (8.5-10.1); Creatinine Clr Calc Pharmacy 47.9 ml/min; Est GFR (Non-African American) 44.9; Potassium 3.4 mmol/L (3.5-5.1)
[2018-11-21 18:55] LABS: Mean Corpuscular Hgb Conc 32.2 g/dL (32-36)
[2018-11-21 18:57] LABS: Albumin Globulin Ratio 0.7 (0.9-2); Bilirubin,Total 0.4 mg/dl (0.2-1); Globulin 4.3 gm/dl (2.5-4.0); Total Protein 7.3 gm/dl (6.4-8.2)
[2018-11-21] MEDS: MONTELUKAST SODIUM 10 MG TABLET PO SCH (21:16)
[2018-11-22] MEDS: MoRPHine SULFATE 4 MG/ML 1 ML CARP\\VIAL IV PRN ×7 (01:38→23:31)
[2018-11-22] MEDS: ALBUT/IPRATROP 3MG/0.5MG NEB 3 ML VIAL NEB SCH ×6 (03:00→23:07)
[2018-11-22] MEDS: OXYCODONE HCL IR 5 MG TAB (IMMEDIATE RELEASE) PO PRN ×3 (04:14→17:10)
[2018-11-22] MEDS: ACETAMINOPHEN 325 MG TAB PO SCH ×4 (04:16→21:11)
--- NOTE | 2018-11-22 07:34 | XRay Report ---
SINGLE VIEW CHEST CLINICAL HISTORY: Status post right upper lobe resection. FINDINGS: An AP, portable, upright chest radiograph is compared to study dated 11/21/2018 and correlate d with chest CT dated 10/24/2018. The examination is degraded by portable technique and patient rotati on. The cardiomediastinal silhouette is unremarkable. Emphysema and chronic interstitial thickening are similar to previous. There is volume loss in the right lung and postoperative change consistent w ith right upper lobe resection. Right perihilar density likely represents atelectasis. A right-sided chest tube is unchanged. A small to moderate right apical pneumothorax persists and is unchanged from yesterday. There is at least 3.5 cm of right apical pleural separation. The skeletal structures are osteopenic. The bony thorax is grossly intact. Subcutaneous emphysema is noted along the right chest wall. IMPRESSION: 1. Emphysema and postoperative change from right upper lobe resection. 2. A right-sided chest tube is unchanged in position, and a small to moderate right apical pneumothor ax persists. 3. The left lung appears clear. 4. Right perihilar density likely represents atelectasis. Electronically signed by: Pelon Carcamo M.D. 11/22/2018 7:33 AM
[2018-11-22] MEDS: BuPROPion SR 150 MG TABCR PO SCH ×2 (07:56→21:11)
[2018-11-22] MEDS: FLUOXETINE HCL 20 MG CAP PO SCH (07:57)
[2018-11-22] MEDS: ENOXAPARIN INJ 40 MG/0.4 ML SYR SQ SCH (07:57)
[2018-11-22] MEDS: DOCUSATE SODIUM 100 MG CAP PO SCH ×2 (07:57→21:11)
[2018-11-22] MEDS: DONEPEZIL HCL 10 MG TAB PO SCH (07:57)
[2018-11-22] MEDS: CHOLECALCIFEROL 1,000 UNITS TAB PO SCH (07:57)
[2018-11-22] MEDS: PANTOprazole 40 MG TAB PO SCH (07:57)
[2018-11-22 08:12] LABS: Hematocrit (blood only) 32.3 % (37-47); Hemoglobin 10.2 g/dL (12.0-16.0); Mean Corpuscular Hgb Conc 31.6 g/dL (32-36); Mean Corpuscular Volume 85.7 fL (80-100); Mean Platelet Volume 9.5 fL (7.4-10.4); Platelet Count 227 K/uL (130-400); RDW Coefficient of Variation 15.3 % (11.5-14.5); RDW Standard Deviation 47.5 fL (36.4-46.3); Red Blood Count 3.77 M/uL (4.2-5.4); White Blood Count 16.79 K/uL (4.8-10.8)
--- NOTE | 2018-11-22 08:36 | Surgery Progress Note ---
Date of Service November 22, 2018 Assessment & Plan (1) Non-small cell cancer of right lung: -pt. is s/p robotic RUL POD #23 today -chest tube removed today -continue ambulation, coughing, deep breathing and use of IS -pain control measures are in place -due to wheezing pulmonary consulted: -nebulizers added -pt. treated with course of steroids which have concluded -it is felt pt. will require oxygen at home (this was being consider as an outpt), so will obtain a 2-step prior to d/c -leukocytosis noted and is likely due to steroids, but due to cough/rhonchi will add mucinex and augmentin -lovenox is in place for DVT prevention Subjective Pt. notes she is SOB with activity. She has been ambulating in hallway. No voiding difficulty. She is tolerating oral intake without N/V. Physical Exam 2 Vital Signs (Past 24 Hours): Last Vital Signs Temp 36.8 C 11/22/18 07:08 Pulse 107 H 11/22/18 07:18 Resp 24 11/22/18 07:18 BP 123/74 11/22/18 07:08 Pulse Ox 98 11/22/18 07:18 Physical Exam: chest tube examined and no air leak noted Constitutional: well developed and well nourished; no acute distress Respiratory: no respiratory distress and no labored breathing Faint expiratory wheezing noted with occasional rhonchi noted Cardiovascular: Rate/Rhythm: regular rate Gastrointestinal (Abdomen): soft and non-tender Musculoskeletal: no calf tenderness
--- NOTE | 2018-11-22 08:57 | XRay Report ---
SINGLE VIEW CHEST CLINICAL HISTORY: Chest tube removal. FINDINGS: An AP, portable, upright chest radiograph is compared to study dated 11/21/2018 and correlate d with chest CT dated 10/24/2018. The examination is degraded by portable technique and patient rotati on. The cardiomediastinal silhouette is unremarkable. Emphysema and chronic interstitial thickening are similar to previous. There is volume loss in the right lung and postoperative change consistent w ith right upper lobe resection. Right perihilar density likely represents atelectasis. A right-sided chest tube has been removed. A small to moderate right apical pneumothorax persists and is unchanged from earlier today.There are developing airspace opacities in the left upper lobe. The skeletal struc tures are osteopenic. The bony thorax is grossly intact. Subcutaneous emphysema is noted along the ri ght chest wall. IMPRESSION: 1. Emphysema and postoperative change from right upper lobe resection. 2. A right-sided chest tube has been removed. A small to moderate right apical pneumothorax has not s ignificantly changed. 3. There is developing airspace consolidation in the left upper lobe. 4. Right perihilar density is unchanged and likely represents atelectasis. Electronically signed by: Pelon Carcamo M.D. 11/22/2018 8:56 AM
[2018-11-22] MEDS: AMOXICILLIN/CLAVULANATE 875 MG TAB PO SCH ×2 (10:08→16:09)
[2018-11-22] MEDS: guaiFENesin 600 MG TABCR PO SCH ×2 (10:08→21:11)
[2018-11-22] MEDS: BUDESONIDE/FORMOTEROL FUMARATE 160/4.5 60 PUFFS/INHALER INH SCH ×2 (13:53→21:09)
--- NOTE | 2018-11-22 15:35 | Hospitalist Progress Note ---
Date of Service November 22, 2018 Assessment & Plan (1) Non-small cell cancer of right lung: - S/P Wedge and chest tube removed on 11/22 and did have small apical PTX initially - Surgical management per primary team; Hospitalists will continue to follow (2) Hypertension: - No formal diagnosis of such but could have underlying HTN. We have several recent readings to view and mostly are in a good range. Likely a component of anxiety/stress and pain factored into readings yesterday but so far her pressures have been well today and she reports today is a better day - She was given Lisinopril 5 mg on 11/21 and could consider this vs Norvasc if pressures continue to stay elevated. if not, might be better to just monitor for the time being (3) Acute respiratory failure with hypoxia: - This is multifactorial between underlying COPD with exacerbation and recent wedge due to nonsmall cell lung CA - It is anticipated she will need ongoing supplemental O2 - recommend 2 step be completed prior to discharge to gauge amount of need Present on Admission?: Yes (4) COPD exacerbation: - Reports she was treated with some steroids as an outpatient prior to admission; finished a course of IV steroids in house - She follows with Chago Isidro PA-C - She was just started on Anora Ellipta as outpatient and unfortunately this is non-formulary here. Recommend to continue JAYLEN duonebs to give the TIAGO/LAMA and discussed with thoracic team about using Symbicort to give the LABA/inhaled steroid to see if this helps get her between Duonebs -- Did discuss with team that inhaled steroids wouldn't be contraindicated at this time - She does feel like when she breaths in that it feels blocked - hopefully the Mucinex can help thin secretions to promote mucous movement - also recommend utilizing spacer with inhaler unless she can take the forceful inhale - Mucinex and Augmentin added Present on Admission?: Yes (5) CKD (chronic kidney disease) stage 3, GFR 30-59 ml/min: - Review of previous labs looks like she could have a CKD - Mild elevations in Cr but appears 1.3-1.4 is baseline and will monitor Present on Admission?: Yes (6) Crohns disease: - S/P ileostomy - On Stellara; no current flair and just recommend outpatient F/U with her GI Present on Admission?: Yes Subjective Reports that she does not feel well however a lot better than yesterday. BP have been controlled today and we have several readings to review and majority are in a good range. Yesterday she endorses worsening of breathing and pain, also states she was very worried about her blood pressure so likely some stress-induced components. She reports feeling SOB and appears slightly dyspneic. She is rather tight and wheezy on examination. She states she just started Anora Ellipta as an outpatient and may benefit from a LABA component to get her through to the next Duoneb in the interim Constitutional: + fatigue and + weakness; no fever and no chills Eyes: no worsening vision Ear, Nose, Mouth, Throat: no nasal congestion, no sore throat, no hoarseness and no dysphagia Respiratory: + dyspnea, + dyspnea on exertion and + wheezing; no cough and no hemoptysis Cardiovascular: + edema (face and hands - progressive); no chest pain, no palpitations and no lightheadedness Gastrointestinal: no abdominal pain, no nausea, no vomiting, no constipation and no diarrhea/loose stools Genitourinary (Female): no dysuria Musculoskeletal: no body aches Integumentary: no rash Psychiatric: + anxiety Physical Exam 2 Vital Signs (Past 24 Hours): Last Vital Signs Temp 36.8 C 11/22/18 07:08 Pulse 103 H 11/22/18 15:26 Resp 30 H 11/22/18 15:26 BP 117/63 11/22/18 11:29 Pulse Ox 92 11/22/18 15:26 Constitutional: well developed, well nourished, + acute distress (mild labored breathing) and + ill appearing Eyes: + anicteric sclerae ENMT: Ears: no hearing impairment Mouth: no muffled voice Throat: uvula midline Neck: trachea midline Respiratory: + labored breathing (can speak mostly in full sentences but some stopping for breaths) Auscultation: + diminished lung sounds, + rhonchi and + wheezes Cardiovascular: Rate/Rhythm: regular rate and regular rhythm Gastrointestinal (Abdomen): Inspection/Auscultation: normal bowel sounds Percussion/Palpation: abdomen soft; abdomen nontender presence of ostomy - beefy red stoma Musculoskeletal: Head/Neck/Chest: normocephalic, head atraumatic and neck supple Extremities: no cyanosis and no clubbing dressing over chest tube site C/D/I Skin: no rashes, warm and dry Neurologic: moves all extremities Psychiatric: A+Ox3, euthymic affect
[2018-11-22] MEDS: MONTELUKAST SODIUM 10 MG TABLET PO SCH (21:11)
[2018-11-23] MEDS: MoRPHine SULFATE 4 MG/ML 1 ML CARP\\VIAL IV PRN ×8 (00:42→23:45)
[2018-11-23] MEDS: ALBUT/IPRATROP 3MG/0.5MG NEB 3 ML VIAL NEB SCH ×7 (03:19→23:01)
[2018-11-23] MEDS: ACETAMINOPHEN 325 MG TAB PO SCH ×4 (03:48→23:30)
[2018-11-23] MEDS: OXYCODONE HCL IR 5 MG TAB (IMMEDIATE RELEASE) PO PRN ×2 (06:16→13:36)
[2018-11-23] MEDS: ALBUTEROL HFA 8 GM INHALER INH PRN (06:19)
[2018-11-23] MEDS: CHOLECALCIFEROL 1,000 UNITS TAB PO SCH (08:24)
[2018-11-23] MEDS: BuPROPion SR 150 MG TABCR PO SCH ×2 (08:24→20:30)
[2018-11-23] MEDS: DOCUSATE SODIUM 100 MG CAP PO SCH ×2 (08:25→20:30)
[2018-11-23] MEDS: DONEPEZIL HCL 10 MG TAB PO SCH (08:25)
[2018-11-23] MEDS: FLUOXETINE HCL 20 MG CAP PO SCH (08:26)
[2018-11-23] MEDS: guaiFENesin 600 MG TABCR PO SCH ×2 (08:26→20:30)
[2018-11-23] MEDS: PANTOprazole 40 MG TAB PO SCH (08:26)
[2018-11-23] MEDS: BUDESONIDE/FORMOTEROL FUMARATE 160/4.5 60 PUFFS/INHALER INH SCH ×2 (08:27→20:30)
[2018-11-23] MEDS: AMOXICILLIN/CLAVULANATE 875 MG TAB PO SCH (08:27)
[2018-11-23] MEDS: ENOXAPARIN INJ 40 MG/0.4 ML SYR SQ SCH (08:28)
[2018-11-23] MEDS ORDERED: PIPERACILL/TAZOBAC CONSULT ACTIVE PRN (10:13)
[2018-11-23] MEDS ORDERED: VANCOMYCIN CONSULT ACTIVE PRN (10:13)
[2018-11-23] MEDS ORDERED: FUROSEMIDE 20 MG in SYRINGE 0 ML IV ONE (10:45)
[2018-11-23] MEDS ORDERED: PIPERACILLIN/TAZOBACTAM 3.375 GM in DEXTROSE 5% 100 ML IV ONE (11:00)
--- NOTE | 2018-11-23 11:04 | Progress Note ---
DATE: 11/23/2018 Yu Isidro is seen today on postop day 4 status post a robot-assisted thoracoscopic right upper lobectomy with mediastinal lymphadenectomy. This is for an apparent adenocarcinoma, although the final pathology and lymph node status remains unknown. Her chest tube is out. She is not wheezing today, but she does have rhonchi. She has a cough productive of some green sputum. I have stopped her Augmentin and put her on Zosyn and vancomycin. It should be noted that this patient has received numerous courses of antibiotics over the last few months. I think we should cover resistant organisms. We did order a sputum sample. I have ordered x-rays for tomorrow. She is no longer on steroids, which I think is good. I would be worried about her having its stump breakdown with this. Her incisions are clean. She is ambulating, but she is requiring increased oxygen. I am going to give her a dose of Lasix as I feel that with her renal insufficiency, she may need help to mobilize some of the fluid. We will also check labs on her again tomorrow. MTDD
--- NOTE | 2018-11-23 11:38 | Pharmacy Report ---
Pharmacy Abx Dose Short Note - Date of Service November 23, 2018 - Assessment & Plan Laboratory Tests 11/19/18 11/21/18 11/22/18 19:08 18:24 07:39 WBC 16.79 H Creatinine 1.43 H 1.37 H Est Cr Clr Drug Dosing 45.9 47.9 Assessment: 48 yo Female receiving VANC/Zosyn-IV for treatment of pulmonary infection-green sputum. * Day # 2 of antimicrobial therapy (started Augmentin 11/22/18) Pertinent PMH: new diagnosis NSCLC?, asthma/COPD, CKD3 (baseline 1-1.2), recent courses out-pt abx, Crohn's s/p ileostomy, former smoker Plan: Vanc-IV: * Estimated pharmacokinetics: Vd~0.6 L/kg, Ke~0.0459hr-1, T 1/2~15 hrs * LOADING DOSE: VANC 2000mg (~25mg/kg) IV x 1, then * MAINTENANCE DOSE: VANC 1500mg (~18mg/kg) IV q 18 hours. * Goal trough level: 15 to 20 mcg/mL for pulmonary process * VANC Trough level ordered @[facility] prior to 11/25/18 1600 dose Piperacillin/Tazobactam Extended Infusion: � 3.375g IV bolus, then 3.375-4.5g IV q 8 hrs for est CrCL > 20mL/min (4-6 hrs after load). Pharmacy will continue to follow and will adjust dose/frequency as necessary. Thank you.
[2018-11-23] MEDS ORDERED: VANCOMYCIN HCL 2,000 MG in SODIUM CHLORIDE 0.9% 500 ML IV ONE (11:45)
[2018-11-23] MEDS: PIPERACILLIN/TAZOBACTAM 3.375 GM in DEXTROSE 5% 100 ML IV SCH ×2 (16:35→23:46)
--- NOTE | 2018-11-23 19:00 | Hospitalist Progress Note ---
Date of Service November 23, 2018 Assessment & Plan (1) Non-small cell cancer of right lung: - S/P Wedge of RUL (11/19) and chest tube removed on 11/22 and did have small apical PTX initially - Suspected adenocarcinoma of lung but still awaiting pathology - Surgical management per primary team; Hospitalists will continue to follow Present on Admission?: Yes (2) Hypertension: - No formal diagnosis of such but could have underlying HTN. We have several recent readings to view and mostly are in a good range. Likely a component of anxiety/stress and pain factored into readings on 11/21 and since with minimal elevated readings - She was given Lisinopril 5 mg on 11/21 and could consider this vs Norvasc if pressures continue to stay elevated. if not, might be better to just monitor for the time being as pressures have been adequate - If anti-hypertensives are decided upon would avoid BB therapy given her COPD Present on Admission?: Yes (3) Acute respiratory failure with hypoxia: - This is multifactorial between underlying COPD with exacerbation and recent wedge due to suspected nonsmall cell lung CA - It is anticipated she will need ongoing supplemental O2 - recommend 2 step be completed prior to discharge to gauge amount of need Present on Admission?: Yes (4) COPD exacerbation: - Reports she was treated with some steroids as an outpatient prior to admission; finished a course of IV steroids in house - She follows with Chago Isidro PA-C - She was just started on Anora Ellipta as outpatient and unfortunately this is non-formulary here. Recommend to continue JAYLEN duonebs to give the TIAGO/LAMA and discussed with thoracic team about using Symbicort to give the LABA/inhaled steroid to see if this helps get her between Duonebs -- Did discuss with team that inhaled steroids wouldn't be contraindicated at this time - She does feel like when she breaths in that it feels blocked - hopefully the Mucinex can help thin secretions to promote mucous movement - also recommend utilizing spacer with inhaler unless she can take the forceful inhale and she reports the spacer has helped a lot - Mucinex - Her Abx were broadened to Vanc/Zosyn with repeat CXR in AM; Given Lasix 20 mg IV x 1 dose - Recommend flutter valve to help move secretions Present on Admission?: Yes (5) CKD (chronic kidney disease) stage 3, GFR 30-59 ml/min: - Review of previous labs looks like she could have a CKD - Mild elevations in Cr but appears 1.3-1.4 is baseline and will monitor Present on Admission?: Yes (6) Crohns disease: - S/P ileostomy - On Tahira; no current flair and just recommend outpatient F/U with her GI Subjective Reports minimal change in respiratory status today. She now has no wheezing but is diffusely rhonchorus. Did reassess at 1840 as her recent vitals showed a 76% on 4 L. Patient is sitting in bedside chair and eating some soup. She has labored breathing but unchanged and no acute distress. She states she was feeling a bit nauseous a little while ago and was also just ambulating the hallway. She did have a dose of Lasix and reports frequent urination since. She is still rhonchorous on repeat examination but does actually sound improved. She now reports she is getting more mucous out. Constitutional: + fatigue and + weakness; no fever and no chills Respiratory: + dyspnea, + dyspnea on exertion and + sputum production; no cough , no hemoptysis and no wheezing Cardiovascular: + edema (face and hands - progressive); no chest pain, no palpitations and no lightheadedness Gastrointestinal: + nausea and + diarrhea/loose stools (common due to ileostomy) ; no abdominal pain, no vomiting and no constipation Genitourinary (Female): no dysuria Psychiatric: + anxiety Physical Exam 2 Vital Signs (Past 24 Hours): Last Vital Signs Temp 36.7 C 11/23/18 15:13 Pulse 91 H 11/23/18 18:39 Resp 16 11/23/18 15:22 BP 118/75 11/23/18 15:13 Pulse Ox 76 L 11/23/18 15:22 Constitutional: well developed, well nourished, + acute distress (mild labored breathing) and + ill appearing Eyes: + anicteric sclerae ENMT: Ears: no hearing impairment Mouth: no muffled voice Throat: uvula midline Neck: trachea midline Respiratory: + labored breathing (can speak mostly in full sentences but some stopping for breaths) Auscultation: + rhonchi (diffusely but slightly reduced since AM examination); no wheezes Cardiovascular: Rate/Rhythm: regular rhythm and + tachycardic Gastrointestinal (Abdomen): Inspection/Auscultation: normal bowel sounds Percussion/Palpation: abdomen soft; abdomen nontender Musculoskeletal: Head/Neck/Chest: normocephalic, head atraumatic and neck supple Extremities: no cyanosis and no clubbing Skin: no rashes, warm and dry Neurologic: moves all extremities Psychiatric: A+Ox3, euthymic affect
[2018-11-23] MEDS: MONTELUKAST SODIUM 10 MG TABLET PO SCH (20:30)
[2018-11-24] MEDS: OXYCODONE HCL IR 5 MG TAB (IMMEDIATE RELEASE) PO PRN ×5 (01:00→21:44)
[2018-11-24] MEDS: MoRPHine SULFATE 4 MG/ML 1 ML CARP\\VIAL IV PRN ×8 (02:10→22:39)
[2018-11-24] MEDS: ALBUT/IPRATROP 3MG/0.5MG NEB 3 ML VIAL NEB SCH ×6 (03:01→23:05)
[2018-11-24] MEDS: ACETAMINOPHEN 325 MG TAB PO SCH ×4 (03:52→21:43)
[2018-11-24] MEDS: VANCOMYCIN HCL 1,500 MG in SODIUM CHLORIDE 0.9% 500 ML IV SCH ×2 (03:52→21:44)
[2018-11-24 06:31] LABS: Creatinine Clr Calc Pharmacy 64.3 ml/min; Est GFR (African American) 74.3; Est GFR (Non-African American) 64.1
--- NOTE | 2018-11-24 07:24 | XRay Report ---
XR chest 1V portable HISTORY: Status post lobectomy. COMPARISON: Chest 11/22/2018. FINDINGS: There are postoperative changes within the right lung. Slight increase in size in the moder ate right pneumothorax which measures a maximal pleural gap of 2.7 cm, this presumably 2.5 cm. The he art remains mildly enlarged. Left lung interstitial thickening and hazy airspace opacity has progress ed. Small amount of right chest wall subcutaneous emphysema is again noted. Suspect a trace right ple ural effusion. Right perihilar hazy airspace opacity persists and may be due to the postoperative paul nge. IMPRESSION: 1. Slight increase in size in the moderate right pneumothorax which measures a maximal pleural gap of 2.7 cm. 2. Progressive airspace opacity within the left lung which may represent asymmetric pulmonary edema. 3. 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 Electronically signed by: Gregg Walker M.D. 11/24/2018 7:23 AM
[2018-11-24] MEDS: PIPERACILLIN/TAZOBACTAM 3.375 GM in DEXTROSE 5% 100 ML IV SCH ×2 (07:54→16:30)
[2018-11-24] MEDS: FLUOXETINE HCL 20 MG CAP PO SCH (08:00)
[2018-11-24] MEDS: CHOLECALCIFEROL 1,000 UNITS TAB PO SCH (08:01)
[2018-11-24] MEDS: DONEPEZIL HCL 10 MG TAB PO SCH (08:01)
[2018-11-24] MEDS: BuPROPion SR 150 MG TABCR PO SCH ×2 (08:01→21:43)
[2018-11-24] MEDS: DOCUSATE SODIUM 100 MG CAP PO SCH ×2 (08:01→21:43)
[2018-11-24] MEDS: ENOXAPARIN INJ 40 MG/0.4 ML SYR SQ SCH (08:01)
[2018-11-24] MEDS: PANTOprazole 40 MG TAB PO SCH (08:02)
[2018-11-24] MEDS: BUDESONIDE/FORMOTEROL FUMARATE 160/4.5 60 PUFFS/INHALER INH SCH ×2 (08:02→21:43)
[2018-11-24] MEDS: guaiFENesin 600 MG TABCR PO SCH ×2 (08:02→21:43)
[2018-11-24] MEDS ORDERED: FUROSEMIDE 40 MG in SYRINGE 0 ML IV ONE (08:30)
--- NOTE | 2018-11-24 08:47 | CT Scan Report ---
CT chest wo con CT DOSE: 669.21 mGycm HISTORY: Postoperative evaluation pneumothorax TECHNIQUE: Multiaxial CT images of the chest were performed without contrast. A dose lowering techni que was utilized adhering to the principles of ALARA. COMPARISON: 10/24/2018 FINDINGS: Interval right upper lobectomy. Moderate right pneumothorax. Small right pleural effusion. Mild postobstructive consolidative change right upper lung region. Moderate stable cardiomegaly. Interval development of pulmonary edematous change left hemithorax versus diffuse parenchymal infiltr ate. Postoperative changes overlying the right hilum. IMPRESSION: 1. Interval right upper lobectomy. 2. 30% right-sided pneumothorax. 3. Small right pleural effusion with post right hilar consolidative change. 4. Interval diffuse parenchymal infiltrative process left hemithorax versus asymmetric pulmonary kev a. 5. 1.5 cm right paratracheal node. The above report was generated using voice recognition software. It may contain grammatical, syntax or spelling errors. Electronically signed by: Casey Pierce M.D. 11/24/2018 8:46 AM
[2018-11-24] MEDS: methylPREDNISolone 80 MG in SYRINGE 0 ML IV SCH ×2 (09:43→21:43)
[2018-11-24] MEDS ORDERED: LIDOCAINE HCL 2% (LOCAL) INJ 50 ML VIAL ONE (12:24)
[2018-11-24] MEDS ORDERED: LIDOCAINE 2% 20 MG/ML 5 ML SYR IV STA (12:28)
[2018-11-24] MEDS ORDERED: FUROSEMIDE 20 MG in SYRINGE 0 ML IV ONE (13:00)
--- NOTE | 2018-11-24 13:07 | XRay Report ---
XR chest 1V portable CLINICAL HISTORY: chest tube placement COMPARISON STUDY: 11/24/2017 FINDINGS: Interval placement of right-sided chest tube. Mild improvement in aeration right midlung. P ersistent right apical pneumothorax with a maximum pleural separation of 2.4 cm. Diffuse infiltrative change left hemithorax is stable. IMPRESSION: 1. Slight decrease in right apical pneumothorax post right-sided chest tube placement. 2. Unchanging diffuse parenchymal infiltrative change left hemithorax. The above report was generated using voice recognition software. It may contain grammatical, syntax or spelling errors. Electronically signed by: Casey Pierce M.D. 11/24/2018 1:06 PM
--- NOTE | 2018-11-24 13:16 | Consultation Report ---
DATE OF CONSULTATION: 11/24/2018 PULMONARY MEDICINE CONSULTATION REASON FOR CONSULTATION: Worsening left lung pneumonia versus asymmetric pulmonary edema in a patient with previous thoracotomy and right upper lobectomy. 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 Jeter 11/19/2018 and underwent robotic video-assisted thorascopic wedge resection with right upper lobe cavitary mass and a right upper lobectomy along with mediastinal lymphadenectomy on 11/19/2018. The patient has had recurrent infection and had undergone a previous workup that included a navigational bronchoscopy and EBUS without a diagnosis. She was brought to the OR on that date and the frozen section showed a mucinous adenocarcinoma. A right upper lobectomy and mediastinal lymphadenectomy was then performed. The patient was extubated in the OR without difficulty. There were minimal amount of adhesions that would require lysis at time of surgery. Multiple lymph nodes were sampled. The following day, the patient was voiding well. No discernible air leak. Wheezing and bronchospasm were reported. Dr. Bernal was consulted the following day from pulmonary medicine. The diagnosis came back nonsmall cell carcinoma at that time from this cavitary mass. She carries a diagnosis of severe COPD with asthma and has been difficult to control in the past according to the patient and Chago Isidro's notations. Frequent courses of steroid therapy along with multiple different maintenance inhalers were utilized, the most recent being Anoro Ellipta inhaler along with her nebulizer. Previous infection secondary to Stenotrophomonas maltophilia from the bronchial washings were noted and she has been on multiple courses of antibiotics. She has also apparently gained 35 pounds in the past 3 months. Preoperatively, forced vital capacity was 2.34 liters which was 82% of predicted and FEV1 was 1.81 liters or 76% of predicted. Ratio was 77%. She apparently is desaturating with exertion in the past and was diagnosed with bullous emphysema preoperatively. Dr. Bernal noted that patient had been off prednisone for 3 weeks prior to surgery and he instituted aerosolized bronchodilator in the form of DuoNeb and high-dose IV Solu-Medrol, IV Lasix was contemplated and possible use of CPAP postoperatively. The patient was then evaluated the following day, started on 2 liters for hypoxemia, and he felt she was doing better. Right apical pneumothorax was noted with repositioning with a right-sided chest tube noted on 11/21. The pleural separation was 3.1 cm, previously 3.9. On 11/23/2018, day 4 postoperatively, the chest tube came out, Augmentin which had been started was discontinued and the patient was placed on IV Zosyn and vancomycin and sputum was obtained. A dose of Lasix was also administered. IV steroids have been discontinued. She does have chronic renal insufficiency with baseline creatinine of 1.3-1.4 level and she has longstanding Crohn's disease status post ileostomy on Stelara. I have been asked to see patient in consultation as her respiratory status has worsened as has her chest x-ray and subsequent CAT scan. The chest x-ray this morning compared to 11/22 shows slight increase in size of a moderate right pneumothorax which they measured 2.7 cm with progressive airspace opacity involving the left lung which may represent asymmetric pulmonary edema, trace right pleural effusion and some subcutaneous air noted with right perihilar airspace opacity as well. CT scan was then ordered today and findings are consistent with interval right upper lobectomy with a moderate right-sided pneumothorax which I agree with small right pleural effusion and some postobstructive consolidative changes, right upper lung zone with interval development of edematous changes, left hemithorax versus diffuse parenchymal infiltrate with progressive right hilar consolidative changes. For details of past medical history, medications, family and social history, I refer you to current and past record. PHYSICAL EXAMINATION: GENERAL: Reveals a well-developed, obese white female, receiving a neb treatment as when I walked in the room, but appearing mildly diaphoretic, stable, but complaining of significant dyspnea even at rest. CURRENT VITAL SIGNS: Blood pressure 142/88, pulse 94 and regular, respiratory rate mid 20s, temperature 37, O2 sat 96% on 5 liters. SKIN: Without lesion. HEENT: Atraumatic, normocephalic, PERRLA, EOMI. Conjunctivae pale. Sclerae nonicteric. Fundi poorly visualized. NECK: Neck veins are not distended at 45 degrees. No obvious adenopathy in the supra or infraclavicular areas. LUNGS: Coarse wheezes diffusely, right greater than left. CARDIAC: Regular rate and rhythm. I do not appreciate a gallop. ABDOMEN: Soft, protuberant. EXTREMITIES: Trace pedal edema. No clubbing. Peripheral cyanosis. NEUROLOGIC: Intact. No lateralizing signs. LABORATORY DATA: CT scan of the chest seen preoperatively on 09/22/2018 shows a 2.1 x 1.8 cm lobulated cavitary right upper lobe mass, no thoracic lymphadenopathy and mild emphysema. Sputum culture from the lung grew out Aspergillus species, not fumigatus. Bronchial washings on 10/31 grew out Stenotrophomonas maltophilia. Most recent lab data, 11/22, white count 16,000, H and H 10.2 and 32.3. Creatinine is down to 1.02. OVERALL ASSESSMENT: A 48-year-old with moderately severe chronic obstructive pulmonary disease/asthma, previous longstanding smoking history and previous infection with gram-negative bacteria, presents with recurrent infection, right upper lobe cavitary mass, consistent with nonsmall cell carcinoma, now with postoperative respiratory distress. The chest x-ray and subsequent CAT scan of the chest performed today shows a moderate pneumothorax. I think it is worse, the patient did show complete expansion postoperatively, it did show a right apical pneumothorax that was small, which may represent a space problem that was only measured at 6 mm immediately postoperatively. What is concerning are the increasing right hilar consolidative changes and now what looks like asymmetric pulmonary edema or possibly aspiration pneumonia involving the left lung (no history of aspiration as the patient was questioned extensively on this issue) with worsening bronchospasm and respiratory distress. I definitely feel the patient should have a new right chest tube inserted aiming towards the apex with better positioning of the tube. In addition, she may require intubation, mechanical ventilator assistance if her respiratory status worsens. I think it would be unlikely that she has a breakdown of the surgical stump in the absence of significant subQ emphysema, etc., but certainly possible and that could be a concern in my opinion. The patient does require high-dose steroid therapy including aerosolized bronchodilator and I do believe the antibiotic selection should be adequate, but I am concerned the patient is going to decompensate within the next 24 hours given her radiographic picture and severe bronchospasm as well as limited reserve. We will discuss further with Dr. Jeter. [facility]IAL HOSPITALJudith
--- NOTE | 2018-11-24 13:21 | Consultation Report ---
DATE OF CONSULTATION: 11/24/2018 ADDENDUM TO PULMONARY MEDICINE CONSULTATION I spoke with Dr. Jeter. I felt strongly that a new chest tube needs to be inserted towards the apex of the right lung. I think it would be unlikely, but I do have a concern about a leak at the surgical cuff site, although the absence of significant subcu or mediastinal emphysema is encouraging. The patient is diuresing from the Lasix given this morning of over 500 mL. She does not have a Dennis catheter in place. I do think there is a positive fluid balance and potential for asymmetric pulmonary edema and would give her another 20 mg of Lasix this afternoon. Aspergillus (not fumigatus) was grown from the surgical specimen. It is possible the patient had a degree of allergic bronchopulmonary aspergillosis to explain that culture, although a form of semi-invasive infection could not be ruled out; semi-invasive or necrotizing infection concomitant with her carcinoma could not be ruled out and we will start her on IV voriconazole in addition to her IV antibiotic therapy. We will watch carefully for any sign of respiratory failure. Bronchoscopy could be helpful, but her airway would have to be secured and her being maintained on mechanical ventilator assistance as she most assuredly would not tolerate that procedure at this point in time. We will discuss further with Dr. Jeter.
[2018-11-24] MEDS ORDERED: OXYCODONE HCL IR 5 MG TAB (IMMEDIATE RELEASE) PO PRN ×2 (14:52→17:10)
[2018-11-24] MEDS: VORICONAZOLE 300 MG in 0.9 % SODIUM CHLORIDE 70 ML IV SCH (15:38)
--- NOTE | 2018-11-24 18:57 | Progress Note ---
DATE: 11/24/2018 Ms. Isidro was seen today. I am concerned as her A-a gradient is worsening. She also has a small pneumothorax with some fluid, and I believe given the problems that she has had, I think we should insert another chest tube. I discussed this case with Dr. Gibson and I do not think that we have a bronchial stump leak at this point, but I remain concerned overall. I agree with Dr. Gibson that she needs to be diuresed. In addition, she has aspergillus growing from her surgical specimen. At any rate, I also discussed this case with pathology and this is an apparent mucinous adenocarcinoma. It appears the nodes are all negative. At this point, I think that she would not require any further therapy once we get her through this. I inserted a chest tube and her x-ray was improved. I am quite concerned about her right middle lobe but I think it is better. I am very concerned about the appearance of her left lung and have discussed this with Dr. Gibson. We are going to continue voriconazole with the vancomycin and Zosyn as well as a diuretic. The patient is ambulating in the hallway, although she is on oxygen. She is also complaining of pain. At this point, I am concerned about her, but I think that she looks a bit better to me after we placed a chest tube and feels better. AMAND
[2018-11-24] MEDS: MONTELUKAST SODIUM 10 MG TABLET PO SCH (21:43)
[2018-11-24] MEDS: ALBUTEROL HFA 8 GM INHALER INH PRN (21:44)
--- NOTE | 2018-11-24 23:17 | Operative Report ---
DATE OF OPERATION: 11/24/2018 PREOPERATIVE DIAGNOSIS: Small right pleural effusion with [id number] pneumothorax status post right middle lobectomy. POSTOPERATIVE DIAGNOSIS: Small right pleural effusion with small to moderate pneumothorax status post right middle lobectomy. PROCEDURE: Insertion of an anterior 20 Egyptian chest tube. SURGEON: Damon Jeter MD [employer] TOOL OPERATOR: ANKITA Wood. ANESTHESIA: Local. SPECIFICS OF PROCEDURE: With the patient in supine position, I prepped the midline of her right upper chest. We then raised the skin wheal with a 25-gauge needle, 1% Xylocaine. A small incision was made and a longer needle was used to anesthetize the subcutaneous tissues and muscle and we got air flow back from the needle. A guidewire was inserted through this and needle removed. A dilator was slid over the guidewire and then removed and then the chest tube with an inner trocar was inserted without difficulty into about 10 cm. There was some air and fluid drained. We sutured this in place with 2-0 silk suture x2. She did not have an active air leak. We drained about 200 mL of serous fluid. Her x-ray had improved aeration of the right middle lobe. It still appeared that she had incomplete expansion of her remaining middle lobe and lower lobe, as it appeared she still had a small pneumothorax but overall, she is improved. She also had some deviation of her trachea to the right after we inserted the tube, which was a difference. ASSESSMENT AND PLAN: Postoperative day #5. I remain quite concerned. She does look better after the chest tube. I attest to the content of the Intraoperative Record and any orders documented therein. Any exception s are noted below.
[2018-11-25] MEDS: OXYCODONE HCL IR 5 MG TAB (IMMEDIATE RELEASE) PO PRN ×6 (01:09→18:48)
[2018-11-25] MEDS: PIPERACILLIN/TAZOBACTAM 3.375 GM in DEXTROSE 5% 100 ML IV SCH ×3 (01:10→18:48)
[2018-11-25] MEDS: VORICONAZOLE 300 MG in 0.9 % SODIUM CHLORIDE 70 ML IV SCH ×2 (02:39→17:13)
[2018-11-25] MEDS: ALBUT/IPRATROP 3MG/0.5MG NEB 3 ML VIAL NEB SCH ×6 (03:18→23:29)
[2018-11-25] MEDS: ACETAMINOPHEN 325 MG TAB PO SCH ×4 (04:24→21:10)
[2018-11-25] MEDS: MoRPHine SULFATE 4 MG/ML 1 ML CARP\\VIAL IV PRN ×2 (04:33→18:02)
[2018-11-25 06:22] LABS: Hematocrit (blood only) 30.1 % (37-47); Hemoglobin 9.8 g/dL (12.0-16.0); Immature Granulocytes # (auto) 0.05 K/uL (0.00-0.02); Immature Granulocytes % (auto) 0.4 %; Lymphocytes # (auto) 0.51 K/uL (1.2-3.4); Lymphocytes % (auto) 3.6 %; Mean Corpuscular Volume 84.8 fL (80-100); Mean Platelet Volume 9.9 fL (7.4-10.4); Monocytes % (auto) 2.1 %; Neutrophils # (auto) 13.23 K/uL (1.4-6.5); Neutrophils % (auto) 93.9 %; Platelet Count 234 K/uL (130-400); RDW Coefficient of Variation 14.8 % (11.5-14.5); RDW Standard Deviation 46.7 fL (36.4-46.3); Red Blood Count 3.55 M/uL (4.2-5.4); White Blood Count 14.09 K/uL (4.8-10.8)
[2018-11-25 06:24] LABS: Mean Corpuscular Hgb Conc 32.6 g/dL (32-36)
[2018-11-25 06:39] LABS: Calcium 8.3 mg/dl (8.5-10.1); Creatinine Clr Calc Pharmacy 57.1 ml/min; Est GFR (African American) 64.2; Est GFR (Non-African American) 55.4; Potassium 2.7 mmol/L (3.5-5.1)
--- NOTE | 2018-11-25 08:02 | XRay Report ---
XR chest 1V portable CLINICAL HISTORY: PNEUMOTHORAX COMPARISON STUDY: Chest radiograph and chest CT November 24, 2018. FINDINGS: A right apical chest tube remains in place. A small to moderate right apical pneumothorax h as mildly increased in size. Diffuse left lung airspace opacity is noted. There is hazy right midlung opacity. The postoperative finding within the right hemithorax. Right paramediastinal opacity persis ts. IMPRESSION: 1. Mild increase in size of a small to moderate right pneumothorax. Chest tube in place. 2. Otherwise, unchanged appearance of the chest with diffuse left lung airspace opacity and right par amediastinal opacity. Electronically signed by: Tone Siegel M.D. 11/25/2018 8:00 AM
[2018-11-25] MEDS: ALBUTEROL HFA 8 GM INHALER INH PRN ×2 (08:22→21:09)
[2018-11-25] MEDS: BUDESONIDE/FORMOTEROL FUMARATE 160/4.5 60 PUFFS/INHALER INH SCH ×2 (08:22→21:09)
[2018-11-25] MEDS: guaiFENesin 600 MG TABCR PO SCH ×2 (08:23→21:11)
[2018-11-25] MEDS: DOCUSATE SODIUM 100 MG CAP PO SCH ×2 (08:23→21:11)
[2018-11-25] MEDS: FLUOXETINE HCL 20 MG CAP PO SCH (08:23)
[2018-11-25] MEDS: methylPREDNISolone 80 MG in SYRINGE 0 ML IV SCH ×2 (08:23→21:10)
[2018-11-25] MEDS: CHOLECALCIFEROL 1,000 UNITS TAB PO SCH (08:24)
[2018-11-25] MEDS: ENOXAPARIN INJ 40 MG/0.4 ML SYR SQ SCH (08:24)
[2018-11-25] MEDS: BuPROPion SR 150 MG TABCR PO SCH ×2 (08:24→21:11)
[2018-11-25] MEDS: DONEPEZIL HCL 10 MG TAB PO SCH (08:24)
[2018-11-25] MEDS: PANTOprazole 40 MG TAB PO SCH (08:24)
--- NOTE | 2018-11-25 10:21 | Surgery Progress Note ---
Date of Service November 25, 2018 Assessment & Plan (1) Acute respiratory failure with hypoxia: Present on Admission?: No (2) Non-small cell cancer of right lung: She appears to be responding to her treatment. She is being treated with antibiotics, and antifungal agent, diuretics, and corticosteroids. At this point I feel better about her. We can continue to mobilize her new progressive pulmonary toilet. Present on Admission?: Yes Subjective Yu is feeling much improved today. She is ambulating in the hallway. Her oxygen requirements have decreased to 3 L/min. Her ostomy is working nicely. Her p.o. intake is increased. She is responding well to diuresis. Her cough is better. She states that she is not producing as much sputum and it is thinner. By enlarge she has improved. She does not feel she is wheezing. Physical Exam 2 Vital Signs (Past 24 Hours): Last Vital Signs Temp 36.5 C 11/25/18 07:32 Pulse 97 H 11/25/18 07:32 Resp 20 11/25/18 07:32 BP 123/79 11/25/18 07:32 Pulse Ox 93 11/25/18 07:51 Physical Exam: Patient is sitting up in a chair at the bedside. She is finished her breakfast. She states her pain is better although she still has significant pain especially when she coughs. She is not wheezing at all today. She is moving air much better on both sides. Her incisions are clean. Chest tube in the right anterior chest is working well with no air leak. She does have some drainage. It is serous. The swelling of her hands and feet have decreased. Neurologically she is completely intact. Results & Data Laboratory Results Patient's potassium is low at 2.7. I think her chest x-ray looks better despite the radiology report. I think she has better aeration of the right middle lobe. White count is coming down and her hemoglobin is stable. Her sodium is low at 132 but trending up. I also discussed her pathology with the pathologist as a final report is not out yet. There is still a question about exactly what type of adenocarcinoma this is but the margins are negative and the nodes are negative for metastatic disease.
--- NOTE | 2018-11-25 10:34 | Hospitalist Progress Note ---
Date of Service November 24, 2018 Assessment & Plan (1) Non-small cell cancer of right lung: - S/P Wedge of RUL (11/19) and chest tube removed on 11/22 and did have small apical PTX initially - Suspected adenocarcinoma of lung but still awaiting pathology - Surgical management per primary team; Hospitalists will continue to follow -Patient seen by pulmonary and had new chest tube placed on 11/24. Also recommended increasing the lasix. Due to worsening pain, increased oxycodone. (2) Hypertension: - No formal diagnosis of such but could have underlying HTN. We have several recent readings to view and mostly are in a good range. Likely a component of anxiety/stress and pain factored into readings on 11/21 and since with minimal elevated readings - She was given Lisinopril 5 mg on 11/21 and could consider this vs Norvasc if pressures continue to stay elevated. if not, might be better to just monitor for the time being as pressures have been adequate - If anti-hypertensives are decided upon would avoid BB therapy given her COPD (3) Acute respiratory failure with hypoxia: - This is multifactorial between underlying COPD with exacerbation and recent wedge due to suspected nonsmall cell lung CA - It is anticipated she will need ongoing supplemental O2 - recommend 2 step be completed prior to discharge to gauge amount of need As noted above, increased lasix and placed chest tube. (4) COPD exacerbation: - Reports she was treated with some steroids as an outpatient prior to admission; finished a course of IV steroids in house - She follows with Chago Isidro PA-C - She was just started on Anora Ellipta as outpatient and unfortunately this is non-formulary here. Recommend to continue JAYLEN duonebs to give the TIAGO/LAMA and discussed with thoracic team about using Symbicort to give the LABA/inhaled steroid to see if this helps get her between Duonebs -- Did discuss with team that inhaled steroids wouldn't be contraindicated at this time - She does feel like when she breaths in that it feels blocked - hopefully the Mucinex can help thin secretions to promote mucous movement - also recommend utilizing spacer with inhaler unless she can take the forceful inhale and she reports the spacer has helped a lot - Mucinex - Her Abx were broadened to Vanc/Zosyn with repeat CXR in AM; Given Lasix 20 mg IV x 1 dose - Recommend flutter valve to help move secretions (5) CKD (chronic kidney disease) stage 3, GFR 30-59 ml/min: - Review of previous labs looks like she could have a CKD - Mild elevations in Cr but appears 1.3-1.4 is baseline and will monitor (6) Crohns disease: - S/P ileostomy - On [place]; no current flair and just recommend outpatient F/U with her GI Spent 25 minutes in management of patient. Subjective Patient reports that she had a rough day so far. She has a new chest tube placed. She reports that she is still in pain from the procedure and is requesting more pain medicine. She reports he breathing is somewhat improved from yesterday. Will monitor . Constitutional: + fatigue and + weakness; no fever and no chills Respiratory: + dyspnea, + dyspnea on exertion and + sputum production; no cough , no hemoptysis and no wheezing Cardiovascular: + edema (face and hands - progressive); no chest pain, no palpitations and no lightheadedness Gastrointestinal: + nausea and + diarrhea/loose stools (common due to ileostomy) ; no abdominal pain, no vomiting and no constipation Psychiatric: + anxiety Physical Exam 2 Vital Signs (Past 24 Hours): Last Vital Signs Temp 37 C 11/24/18 07:30 Pulse 100 11/24/18 07:30 Resp 20 11/24/18 07:30 BP 142/88 11/24/18 07:30 Pulse Ox 94 11/24/18 07:30 Physical Exam: Constitutional: well developed, well nourished, in no acute distress Eyes: + anicteric sclerae ENMT: Ears: no hearing impairment Mouth: no muffled voice Throat: uvula midline Neck: trachea midline Respiratory: Anble to speak in full sentences. Auscultation: + rhonchi bilaterally; no wheezes Cardiovascular: Rate/Rhythm: regular rhythm and + tachycardic Gastrointestinal (Abdomen): Inspection/Auscultation: normal bowel sounds Percussion/Palpation: abdomen soft; abdomen nontender Musculoskeletal: Head/Neck/Chest: normocephalic, head atraumatic and neck supple Extremities: no cyanosis and no clubbing Skin: no rashes, warm and dry Neurologic: moves all extremities Psychiatric: A+Ox3, euthymic affect
[2018-11-25] MEDS: POTASSIUM CHLORIDE / WTR 10 MEQ/100 ML PLCT IV SCH ×4 (11:37→15:52)
--- NOTE | 2018-11-25 12:18 | Progress Note ---
DATE: 11/25/2018 PULMONARY MEDICINE PROGRESS NOTE Chart reviewed, patient examined. SUBJECTIVE: The patient has markedly improved since yesterday and the insertion of the chest tube. She felt immediate relief with both drainage of the pleural fluid and the improved expansion of the right lung. She was diuresed aggressively yesterday and that seems to have improved her cough, shortness of breath. Sputum is not particularly purulent. No hemoptysis is noted. She was started on IV voriconazole yesterday for what appeared to be Aspergillus species (not fumigatus) that has been growing from the tissue that was submitted for culture intraoperatively according to Jarrod Braswell. I am waiting finalization of the past specimen to review with the pathologist. Potassium is depressed at 2.7. Sodium 132. OBJECTIVE: CURRENT VITAL SIGNS: Blood pressure 123/79, pulse 92 and regular, respiratory rate 18, temperature 36.5, O2 sat 96% on 3 liters. SKIN: Without lesion. HEENT: Atraumatic, normocephalic. PERRLA. LUNGS: Marked decreased wheezing compared to yesterday with rales audible at the left base. CARDIAC: Regular rhythm. I do not appreciate a gallop. ABDOMEN: Soft, protuberant. No evidence of hepatosplenomegaly. EXTREMITIES: No pedal edema, clubbing or cyanosis. NEUROLOGIC: Intact. No lateralizing signs. LABORATORY DATA: White count 14,000, H and H 9.8 and 30. Chest x-ray today shows [id number] right pneumothorax with persistent diffuse left lung airspace opacity and right paramediastinal opacity. No discernible air leak at the bedside, 700 mL of fluid drained with chest tube insertion. The fungal cultures of the lymph nodes were negative, but of the lung tissue itself Aspergillus species, not fumigatus was grown. We will await final path to review. 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 We will await final path, but we will continue intravenous Voriconazole and convert over to oral at some point. Potassium supplementation requiredand ordered by Dr Jeter. [facility]ALTHJud[facility]
[2018-11-25] MEDS ORDERED: VANCOMYCIN TROUGH ONE (15:30)
[2018-11-25] MEDS: VANCOMYCIN HCL 1,500 MG in SODIUM CHLORIDE 0.9% 500 ML IV SCH (18:47)
[2018-11-25] MEDS: MONTELUKAST SODIUM 10 MG TABLET PO SCH (21:11)
[2018-11-26] MEDS: PIPERACILLIN/TAZOBACTAM 3.375 GM in DEXTROSE 5% 100 ML IV SCH ×3 (00:14→15:52)
[2018-11-26] MEDS: OXYCODONE HCL IR 5 MG TAB (IMMEDIATE RELEASE) PO PRN ×5 (00:14→20:17)
[2018-11-26] MEDS: MoRPHine SULFATE 4 MG/ML 1 ML CARP\\VIAL IV PRN ×4 (03:19→21:57)
[2018-11-26] MEDS: ALBUT/IPRATROP 3MG/0.5MG NEB 3 ML VIAL NEB SCH ×6 (03:26→22:59)
[2018-11-26] MEDS: ACETAMINOPHEN 325 MG TAB PO SCH ×4 (03:34→21:47)
[2018-11-26] MEDS: VORICONAZOLE 300 MG in 0.9 % SODIUM CHLORIDE 70 ML IV SCH ×2 (03:34→15:48)
[2018-11-26 06:57] LABS: Creatinine Clr Calc Pharmacy 49.7 ml/min; Est GFR (African American) 54.4; Est GFR (Non-African American) 46.9
--- NOTE | 2018-11-26 07:05 | XRay Report ---
XR chest 1V portable CLINICAL HISTORY: pneumothorax COMPARISON STUDY: 11/25/2018 FINDINGS: The cardiac and mediastinal contours remain stable. A right-sided chest tube is visualized. The tip is unchanged in position. There is a residual 28 mm right apical pneumothorax. There is pers istent) mediastinal fullness. Hazy left lung airspace opacities are slightly improved.[ IMPRESSION: 1. 28 mm right apical pneumothorax 2. Slight improvement in the hazy left lung airspace opacities Electronically signed by: Ermias Hickman M.D. 11/26/2018 7:04 AM
[2018-11-26] MEDS: CHOLECALCIFEROL 1,000 UNITS TAB PO SCH (08:11)
[2018-11-26] MEDS: guaiFENesin 600 MG TABCR PO SCH ×2 (08:11→20:34)
[2018-11-26] MEDS: DOCUSATE SODIUM 100 MG CAP PO SCH ×2 (08:11→20:34)
[2018-11-26] MEDS: PANTOprazole 40 MG TAB PO SCH (08:11)
[2018-11-26] MEDS: FLUOXETINE HCL 20 MG CAP PO SCH (08:11)
[2018-11-26] MEDS: BuPROPion SR 150 MG TABCR PO SCH ×2 (08:11→20:34)
[2018-11-26] MEDS: DONEPEZIL HCL 10 MG TAB PO SCH (08:11)
[2018-11-26] MEDS: BUDESONIDE/FORMOTEROL FUMARATE 160/4.5 60 PUFFS/INHALER INH SCH ×2 (08:12→20:34)
[2018-11-26] MEDS: ENOXAPARIN INJ 40 MG/0.4 ML SYR SQ SCH (08:12)
[2018-11-26] MEDS: methylPREDNISolone 80 MG in SYRINGE 0 ML IV SCH ×2 (08:20→20:34)
--- NOTE | 2018-11-26 08:30 | Hospitalist Progress Note ---
Date of Service November 25, 2018 Assessment & Plan (1) Non-small cell cancer of right lung: - S/P Wedge of RUL (11/19) and chest tube removed on 11/22 and did have small apical PTX initially - Suspected adenocarcinoma of lung but still awaiting pathology - Surgical management per primary team; Hospitalists will continue to follow -Patient seen by pulmonary and had new chest tube placed on 11/24. IV lasix was given yesterday. Will hold further lasix and recheck creatinine in AM. Continue current pain medicine. (2) Hypertension: - No formal diagnosis of such but could have underlying HTN. We have several recent readings to view and mostly are in a good range. Likely a component of anxiety/stress and pain factored into readings on 11/21 and since with minimal elevated readings - She was given Lisinopril 5 mg on 11/21 and could consider this vs Norvasc if pressures continue to stay elevated. if not, might be better to just monitor for the time being as pressures have been adequate - If anti-hypertensives are decided upon would avoid BB therapy given her COPD BP appears better controlled on 11/25. will monitor. (3) Acute respiratory failure with hypoxia: - This is multifactorial between underlying COPD with exacerbation and recent wedge due to suspected nonsmall cell lung CA - It is anticipated she will need ongoing supplemental O2 - recommend 2 step be completed prior to discharge to gauge amount of need As noted above, placed chest tube. (4) COPD exacerbation: - Reports she was treated with some steroids as an outpatient prior to admission; finished a course of IV steroids in house - She follows with Chago Isidro PA-C - She was just started on Anora Ellipta as outpatient and unfortunately this is non-formulary here. Recommend to continue JAYLEN jose to give the TIAGO/LAMA and discussed with thoracic team about using Symbicort to give the LABA/inhaled steroid to see if this helps get her between Duonebs -- Did discuss with team that inhaled steroids wouldn't be contraindicated at this time - She does feel like when she breaths in that it feels blocked - hopefully the Mucinex can help thin secretions to promote mucous movement - also recommend utilizing spacer with inhaler unless she can take the forceful inhale and she reports the spacer has helped a lot - Mucinex - Her Abx were broadened to Vanc/Zosyn - Recommend flutter valve to help move secretions (5) CKD (chronic kidney disease) stage 3, GFR 30-59 ml/min: - Review of previous labs looks like she could have a CKD - Mild elevations in Cr but appears 1.3-1.4 is baseline and will monitor (6) Crohns disease: - S/P ileostomy - On [place]; no current flair and just recommend outpatient F/U with her GI Spent 25 minutes in management of patient. Subjective Patient reports that TODAY SHE FEELS BETTER. She states that she may have turned the corned. Her chest pain is now better controlled and she can breath better. Will monitor. Constitutional: + fatigue and + weakness; no fever and no chills Respiratory: + dyspnea, + dyspnea on exertion and + sputum production; no cough , no hemoptysis and no wheezing Cardiovascular: + edema (face and hands - progressive); no chest pain, no palpitations and no lightheadedness Gastrointestinal: + nausea and + diarrhea/loose stools (common due to ileostomy) ; no abdominal pain, no vomiting and no constipation Psychiatric: + anxiety Physical Exam 2 Vital Signs (Past 24 Hours): Last Vital Signs Temp 36.7 C 11/25/18 14:47 Pulse 103 11/25/18 14:47 Resp 17 11/25/18 14:47 BP 152/84 H 11/25/18 14:47 Pulse Ox 93 11/25/18 14:47 Physical Exam: Constitutional: well developed, well nourished, in no acute distress Eyes: + anicteric sclerae ENMT: Ears: no hearing impairment Mouth: no muffled voice Throat: uvula midline Neck: trachea midline Respiratory: Able to speak in full sentences. Auscultation: Improved breath sounds; no wheezes Cardiovascular: Rate/Rhythm: regular rhythm and + tachycardic Gastrointestinal (Abdomen): Inspection/Auscultation: normal bowel sounds Percussion/Palpation: abdomen soft; abdomen nontender Musculoskeletal: Head/Neck/Chest: normocephalic, head atraumatic and neck supple Extremities: no cyanosis and no clubbing Skin: no rashes, warm and dry Neurologic: moves all extremities Psychiatric: A+Ox3, euthymic affect
[2018-11-26] MEDS ORDERED: VANCOMYCIN HCL 1,500 MG in SODIUM CHLORIDE 0.9% 500 ML IV SCH (11:00)
--- NOTE | 2018-11-26 11:34 | Progress Note ---
DATE: 11/26/2018 The patient was seen today. She is ambulating in the hallway. She feels better than she did yesterday. I think her x-ray looks better where we are starting to get clearing of the left lung infiltrative pattern. The pneumothorax on the right is unchanged, but I think there is simply incomplete expansion of the lung. At any rate, we do not have an air leak. We are really not draining much fluid. I think that the right middle lobe is aerated better also. I think the patient looks better. Her pain is better. She no longer has a productive cough. Her pathology came back. This shows that we have actually 2 cancers. 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 At any rate, all the margins are negative and all of the lymph nodes were negative. She will not require further therapy. Overall, I am pleased with the patient. I think she is getting better. I was very concerned that she may have developed pneumonia, a pneumonia in the left lung or even worse an acute lung injury; however, this does not appear to be the case. There may have been a pneumonic process, which has been helped with the antibiotics. I do not think that Aspergillus probably played a role here. She may have also been fluid overloaded. Whatever the case, she has responded and I am quite pleased with her. We can get her oxygen down some. We may be able to pull her chest tube and send her home on supplemental oxygen in the next few days.
[2018-11-26 16:50] LABS: BUN Creatinine Ratio 13.6 (10-20); Calcium 7.9 mg/dl (8.5-10.1); Creatinine Clr Calc Pharmacy 43.5 ml/min; Est GFR (African American) 46.2; Est GFR (Non-African American) 39.9
[2018-11-26 16:53] LABS: Potassium 3.3 mmol/L (3.5-5.1)
[2018-11-26] MEDS ORDERED: PHARMACY GLYCEMIC MGMT CONSULT PRN (17:12)
[2018-11-26] MEDS ORDERED: GLUCAGON FOR INJ 1 MG VIAL IM PRN (17:19)
[2018-11-26] MEDS ORDERED: GLUCOSE 40% GEL 15 GM TUBE PO PRN (17:19)
[2018-11-26] MEDS ORDERED: DEXTROSE 50% 50 ML SYRINGE IV PRN (17:19)
[2018-11-26] MEDS ORDERED: GLUCOSE 10 TABS/TUBE PO PRN (17:19)
--- NOTE | 2018-11-26 17:47 | Progress Note ---
DATE: 11/26/2018 Chart reviewed, patient examined. SUBJECTIVE: The patient has felt a little bit more dyspneic this afternoon. She has a dry cough. Mild chest pain noted on the right side. Not producing any significant phlegm. Tolerating her nebulizer treatments. She was ambulating in the hallway earlier today and states she did better. OBJECTIVE: VITAL SIGNS: Blood pressure 146/87, pulse 77 and regular, respiratory rate 20, temperature 36.5, O2 sat 96% on 3 liters. SKIN: Without lesion. HEENT: Atraumatic, normocephalic. PERRLA. LUNGS: Distant but clear. Some fine crackles left base but no audible wheezing. Good breath sounds right lung and right axillary region. CARDIAC: Regular rate and rhythm. I do not appreciate a gallop. ABDOMEN: Soft, protuberant. EXTREMITIES: No significant pedal edema, clubbing or cyanosis. NEUROLOGIC: Intact. No lateralizing signs. LABORATORY DATA: Chest x-ray today shows a 28 mm right apical pneumothorax. Slight improvement in hazy left lung airspace opacities when compared to yesterday. The path specimen was finalized today, although the official report was sent out for outside review. 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 There was also a minimally invasive adenocarcinoma measuring 4 mm seen coincident with that first primary. There was some question whether the colloid lesion represented a mucinous adenocarcinoma, but it was felt appearance-cosby it represented the former. There was no mention of fungal elements seen in the tissue despite culture evidence for an Aspergillus species, not fumigatus. PRP currently pending. H&H 9.8 and 30 from yesterday. Creatinine 1.3. OVERALL ASSESSMENT: 48-year-old white female with chronic obstructive pulmonary disease status post right upper lobectomy with two coincident stage I lesions with postoperative problems that consisted of a recurrent pneumothorax with probable right middle lobe atelectasis and fluid overload with possible acute lung injury involving the left contralateral lung. The patient appears to be improving and I think we can start to consider oral medication as she is taking p.o. well and moving her bowels without difficulty. I would like to reduce her steroid dose to an oral prednisone dosage as well as Voriconazole to a p.o. dosage and recheck a PRP to make sure her potassium has come up nicely with potassium supplementation. I still am concerned about a "space problem" involving the right lung and potential inability of that right remaining two lobes on that right side to fill up the right hemithorax and that may suggest and be secondary to persistent atelectasis involving the right middle lobe. LIONEL
[2018-11-26] MEDS: ALBUTEROL HFA 8 GM INHALER INH PRN (17:51)
[2018-11-26] MEDS ORDERED: INSULIN HUMAN REGULAR IV BOLUS 2 UNITS in SYRINGE 0 ML IV ONE (18:00)
[2018-11-26] MEDS ORDERED: INSULIN REGULAR 250 UNITS in SODIUM CHLORIDE 0.9% 247.5 ML IV SCH (18:01)
[2018-11-26] MEDS: POTASSIUM CHLORIDE / WTR 10 MEQ/100 ML PLCT IV SCH ×2 (18:44→20:19)
[2018-11-26] MEDS: INSULIN ASPART 100 UNITS/ML 3 ML PEN SC SCH ×2 (20:04→21:03)
[2018-11-26] MEDS ORDERED: NSS + 20MEQ KCL 20 MEQ/1,000 ML BAG IV SCH (20:30)
[2018-11-26] MEDS: MONTELUKAST SODIUM 10 MG TABLET PO SCH (20:34)
[2018-11-26 22:36] LABS: BUN Creatinine Ratio 15.2 (10-20); Creatinine Clr Calc Pharmacy 52.9 ml/min; Est GFR (African American) 58.7; Est GFR (Non-African American) 50.6; Potassium 3.2 mmol/L (3.5-5.1)
[2018-11-26] MEDS ORDERED: INSULIN GLARGINE SOLOSTAR 100 UNITS/ML 3 ML PEN SC STA (23:40)
--- NOTE | 2018-11-26 23:57 | Hospitalist Progress Note ---
Date of Service November 26, 2018 Assessment & Plan (1) Non-small cell cancer of right lung: - S/P Wedge of RUL (11/19) and chest tube removed on 11/22 and did have small apical PTX initially - Suspected adenocarcinoma of lung but still awaiting pathology - Surgical management per primary team; Hospitalists will continue to follow -Patient seen by pulmonary and had new chest tube placed on 11/24. Will hold further lasix and recheck creatinine in AM. Continue current pain medicine. (2) Hypertension: - No formal diagnosis of such but could have underlying HTN. We have several recent readings to view and mostly are in a good range. Likely a component of anxiety/stress and pain factored into readings on 11/21 and since with minimal elevated readings - She was given Lisinopril 5 mg on 11/21 and could consider this vs Norvasc if pressures continue to stay elevated. if not, might be better to just monitor for the time being as pressures have been adequate - If anti-hypertensives are decided upon would avoid BB therapy given her COPD BP appears better controlled on 11/25. will monitor. (3) Acute respiratory failure with hypoxia: - This is multifactorial between underlying COPD with exacerbation and recent wedge due to suspected nonsmall cell lung CA - It is anticipated she will need ongoing supplemental O2 - recommend 2 step be completed prior to discharge to gauge amount of need As noted above, placed chest tube. (4) COPD exacerbation: - Reports she was treated with some steroids as an outpatient prior to admission; finished a course of IV steroids in house - She follows with Chago Isidro PA-C - She was just started on Anora Ellipta as outpatient and unfortunately this is non-formulary here. Recommend to continue JAYLEN duonebs to give the TIAGO/LAMA and discussed with thoracic team about using Symbicort to give the LABA/inhaled steroid to see if this helps get her between Duonebs -- Did discuss with team that inhaled steroids wouldn't be contraindicated at this time - She does feel like when she breaths in that it feels blocked - hopefully the Mucinex can help thin secretions to promote mucous movement - also recommend utilizing spacer with inhaler unless she can take the forceful inhale and she reports the spacer has helped a lot - Mucinex - Her Abx were broadened to Vanc/Zosyn - Recommend flutter valve to help move secretions (5) CKD (chronic kidney disease) stage 3, GFR 30-59 ml/min: - Review of previous labs looks like she could have a CKD - Mild elevations in Cr but appears 1.3-1.4 is baseline and will monitor Creat is 1.2 (6) Hyperglycemia: secondary to steroids. fortino obtain A1C. Likely prediabetic Patient will be on insulin drip temporaily. Will check potassium closely as it is already at 3.3 Will replace and recheck at 22:00. (7) Crohns disease: - S/P ileostomy - On Stellara; no current flair and just recommend outpatient F/U with her GI Spent 45 minutes in management of patient. Subjective Patient reports that TODAY SHE FEELS BETTER. Was called into room becuase her blood suagrs have been elevated. Explained to patient that she may be a prediabetic and that her blood suguars may have been elevated from the steroids. Will place on IV insulin and will closely monitor her potassium. She states though that she is breathing better than yesterday, Will monitor. Constitutional: + fatigue and + weakness; no fever and no chills Respiratory: + dyspnea, + dyspnea on exertion and + sputum production; no cough , no hemoptysis and no wheezing Cardiovascular: + edema (face and hands - progressive); no chest pain, no palpitations and no lightheadedness Gastrointestinal: + nausea and + diarrhea/loose stools (common due to ileostomy) ; no abdominal pain, no vomiting and no constipation Psychiatric: + anxiety Physical Exam 2 Vital Signs (Past 24 Hours): Last Vital Signs Temp 36.7 C 11/26/18 16:24 Pulse 92 H 11/26/18 22:59 Resp 22 11/26/18 22:59 BP 163/99 H 11/26/18 17:29 Pulse Ox 94 11/26/18 22:59 Physical Exam: Constitutional: well developed, well nourished, in no acute distress Eyes: + anicteric sclerae ENMT: Ears: no hearing impairment Mouth: no muffled voice Throat: uvula midline Neck: trachea midline Respiratory: Able to speak in full sentences. Auscultation: Improved breath sounds; no wheezes Cardiovascular: Rate/Rhythm: regular rhythm and + tachycardic Gastrointestinal (Abdomen): Inspection/Auscultation: normal bowel sounds Percussion/Palpation: abdomen soft; abdomen nontender Musculoskeletal: Head/Neck/Chest: normocephalic, head atraumatic and neck supple Extremities: no cyanosis and no clubbing Skin: no rashes, warm and dry Neurologic: moves all extremities Psychiatric: A+Ox3, euthymic affect
[2018-11-27] MEDS: PIPERACILLIN/TAZOBACTAM 3.375 GM in DEXTROSE 5% 100 ML IV SCH ×3 (00:21→16:40)
[2018-11-27] MEDS: POTASSIUM CHLORIDE / WTR 10 MEQ/100 ML PLCT IV SCH ×3 (00:21→02:34)
[2018-11-27] MEDS: OXYCODONE HCL IR 5 MG TAB (IMMEDIATE RELEASE) PO PRN ×5 (00:46→22:13)
[2018-11-27] MEDS: ALBUT/IPRATROP 3MG/0.5MG NEB 3 ML VIAL NEB SCH ×6 (02:58→23:16)
[2018-11-27] MEDS: ONDANSETRON INJ 2 MG/ML 2 ML VIAL IV PRN (03:03)
[2018-11-27] MEDS: VANCOMYCIN HCL 1,250 MG in SODIUM CHLORIDE 0.9% 250 ML IV SCH ×2 (03:52→18:45)
[2018-11-27] MEDS ORDERED: INSULIN ASPART 100 UNITS/ML 3 ML PEN SC ONE (04:15)
[2018-11-27] MEDS: VORICONAZOLE 300 MG in 0.9 % SODIUM CHLORIDE 70 ML IV SCH ×2 (04:23→15:11)
[2018-11-27] MEDS: ACETAMINOPHEN 325 MG TAB PO SCH ×4 (04:56→20:53)
[2018-11-27] MEDS: MoRPHine SULFATE 4 MG/ML 1 ML CARP\\VIAL IV PRN ×2 (07:33→16:24)
[2018-11-27] MEDS: DOCUSATE SODIUM 100 MG CAP PO SCH ×2 (08:48→20:53)
[2018-11-27] MEDS: guaiFENesin 600 MG TABCR PO SCH ×2 (08:48→20:54)
[2018-11-27] MEDS: PANTOprazole 40 MG TAB PO SCH (08:48)
[2018-11-27] MEDS: FLUOXETINE HCL 20 MG CAP PO SCH (08:48)
[2018-11-27] MEDS: DONEPEZIL HCL 10 MG TAB PO SCH (08:48)
[2018-11-27] MEDS: CHOLECALCIFEROL 1,000 UNITS TAB PO SCH (08:50)
[2018-11-27] MEDS: BuPROPion SR 150 MG TABCR PO SCH ×2 (08:50→20:53)
[2018-11-27] MEDS: INSULIN ASPART 100 UNITS/ML 3 ML PEN SC SCH ×4 (08:53→20:56)
[2018-11-27] MEDS: ENOXAPARIN INJ 40 MG/0.4 ML SYR SQ SCH (08:54)
[2018-11-27] MEDS: BUDESONIDE/FORMOTEROL FUMARATE 160/4.5 60 PUFFS/INHALER INH SCH ×2 (08:55→20:54)
[2018-11-27] MEDS ORDERED: INSULIN GLARGINE SOLOSTAR 100 UNITS/ML 3 ML PEN SC ONE (09:00)
[2018-11-27 09:02] LABS: Calcium 7.7 mg/dl (8.5-10.1); Creatinine Clr Calc Pharmacy 63.7 ml/min; Est GFR (African American) 73.4; Est GFR (Non-African American) 63.3; Potassium 3.6 mmol/L (3.5-5.1)
[2018-11-27] MEDS: methylPREDNISolone 80 MG in SYRINGE 0 ML IV SCH ×2 (09:04→20:54)
--- NOTE | 2018-11-27 09:29 | Pharmacy Report ---
Glycemic Control Consultation - Date of Service November 27, 2018 - Scope Scope: Glycemic Pharmacist consulted by Dr Leblanc on 11/26/18 for glycemic control and to write orders per [facility] inpatient glycemic control protocol - Objective Weight: 82.696 kg Accuchecks BSG (last 24hrs): 11/26/18 11/26/18 11/26/18 15:46 19:41 20:51 Glucose 448 H* POC Glucose 324 H 291 H 11/26/18 11/26/18 11/26/18 21:45 22:09 23:45 Glucose 221 H POC Glucose 236 H 104 H 11/27/18 11/27/18 11/27/18 01:10 02:06 04:02 Glucose POC Glucose 119 H 137 H 246 H 11/27/18 11/27/18 11/27/18 05:15 06:16 07:24 Glucose POC Glucose 252 H 211 H 177 H 11/27/18 11/27/18 08:17 08:23 Glucose 143 H POC Glucose 137 H Laboratory Data (last 24hrs): 11/26/18 11/26/18 11/27/18 15:46 22:09 08:17 Potassium 3.3 L D 3.2 L 3.6 Carbon Dioxide 24 27 27 Anion Gap 10.0 9.0 8.0 Creatinine 1.51 H 1.24 H 1.03 Est Cr Clr Drug Dosing 43.5 52.9 63.7 Beta-Hydroxybutyric Acd 0.70 - Recent Pertinent Medications Outpatient Anti-diabetic Regimen: * None * A1c = pending The patient is currently receiving: * Insulin drip at 1.2units/hr Risk Factors for Insulin Resistance: * Steroids: Solu-medrol 80mg IV Q12H * Infection: IV Vancomycin, Zosyn, Voriconazole * Diet: Type 2 DM - Assessment & Plan Assessment & Plan: ASSESSMENT: * 48 year old female admitted with COPD exacerbation, PMH significant for NSCLC * Patient on IV steroids, leading to steroid induced hyperglycemia, started insulin drip per pharmacy consult last night * A1c pending * Patient's blood sugar at goal. 20 units of Lantus was ordered last night, but it was held for BSG of 104mg/dl * Will give one time dose of Lantus now and overlap x 3 hours with insulin drip. * Accuchecks overnight while on high dose ATC IV steroids PLAN FOR INPATIENT GLYCEMIC CONTROL: * IV insulin infusion per moderate stress protocol * Goal Range 100 - 200 mg/dl * Discontinue at 1130 today * Basal insulin * Lantus 20 units SQ x 1 dose now, then further dosing per blood sugars * Bolus insulin * NovoLog per scale ACHS or Q6hrs while NPO and at 0000 and 0400 * Goal Range: Low 110 mg/dL - High 140 mg/dL * Correction Factor: 20 mg/dL/unit * Nutritional / Prandial insulin per carb ratio of 1 unit per 6 grams CHO consumed * Please note that the plan above was derived based on current level of insulin resistance and hospital stress. These recommendations are appropriate for inpatient admission only. Plan of care upon discharge will need to be reassessed to avoid potential outpatient hypo/hyperglycemia. Thank you.
[2018-11-27] MEDS ORDERED: FUROSEMIDE 40 MG in SYRINGE 0 ML IV ONE ×2 (09:33→10:00)
--- NOTE | 2018-11-27 09:33 | Progress Note ---
DATE: 11/27/2018 The patient is seen today. She states that she had a "rough night." She is on 3 liters at 98% sat today. She is stating quite frankly that she "cannot breathe." She has been walking. Her pain is actually better. She states that overnight she started coughing up more brown sputum. I think she is moving air better, but she does have some mild wheezing today. I discussed this with Dr. Gibson and we are going to check a CT scan without contrast this morning. I think overall she is better and she does not have an air leak. Whether or not we remove the chest tube, it will be dependent on her CT scan findings.
[2018-11-27 10:00] LABS: Estimated Average Glucose 140 mg/dl
--- NOTE | 2018-11-27 10:58 | CT Scan Report ---
CT SCAN OF THE CHEST WITHOUT IV CONTRAST CLINICAL HISTORY: Hypoxia. Acute lung injury. Recent right upper lobe resection. COMPARISON STUDY: Chest CT scans dated 11/24/2018 and 09/22/2018. TECHNIQUE: CT scan of the thorax was performed from the thoracic inlet to the upper abdomen. Images are reviewed in the axial, sagittal, and coronal planes. IV contrast was not administered for this ex amination. A dose lowering technique was utilized adhering to the principles of ALARA. CT DOSE: 479.62 mGy.cm FINDINGS: Thyroid: The left lobe of the thyroid gland is presumed surgically absent. The right lobe is normal a s imaged. Thoracic aorta: The thoracic aorta is normal in caliber and demonstrates standard 3-vessel arch anato my. Heart: The heart is top normal in size and without pericardial effusion. Lungs and pleural spaces: Emphysematous change is noted. There are postoperative changes from right u pper lobe resection. A chest tube terminates at the right apex, and enters anteriorly between the sec ond and third ribs. There is a small pleural effusion identified at the right lung base. A small resi dual right apical pneumothorax is identified. This has decreased in size from 11/24/2018. Complete ate lectasis of the right middle lobe is unchanged. Intralobular septal thickening is noted in the right lower lobe. Groundglass consolidation is again seen throughout the left lung and at the right lung ba se. This is significantly improved throughout the left lung, but has increased at the right lung base from previous. Mediastinum: There are enlarged mediastinal lymph nodes. A right paratracheal node on image #71 measu res 2.4 x 1.4 cm. Prevascular nodes measure up to 0.8 cm in short axis. A subcarinal node measures up to 2.2 cm in short axis. Nickie: Not well assessed without IV contrast. Axillae: There is no axillary lymphadenopathy. Upper abdomen: There is a tiny hiatal hernia. Partially visualized upper abdominal viscera is otherwi se grossly unremarkable. Skeletal structures: Postoperative change is noted in the right posterior ribs. No lytic or blastic b sandra lesions are seen. Soft tissues: Subcutaneous emphysema is noted along the right chest wall. IMPRESSION: 1. Emphysema and postoperative changes from right upper lobe pulmonary resection are again noted. 2. A right-sided chest tube is new from 11/24/2018. There is only a small residual right apical pneumo thorax. 3. Diffuse groundglass consolidation throughout the left lung has significantly cleared from 9. Dimension considerations include ARDS, pulmonary edema, multifocal pneumonia, or possibly hemorrha ge. Left pleural effusion seen previously has resolved. 4. Pleural fluid is again seen at the right lung base. 5. There is increasing groundglass consolidation with intralobular septal thickening at the right tyree g base. Differential considerations are similar to above, including asymmetric edema, infectious/infl ammatory pneumonitis, ARDS. 6. There is complete atelectasis of the right middle lobe. This is unchanged, and may be related to m ucus plugging. Although unusual, right middle lobe torsion could also have this appearance. 7. Enlarged mediastinal lymph nodes are nonspecific and may be on a reactive basis. 8. Additional findings as above. Electronically signed by: Pelon Carcamo M.D. 11/27/2018 10:57 AM
--- NOTE | 2018-11-27 11:20 | Progress Note ---
DATE: 11/27/2018 PULMONARY MEDICINE PROGRESS NOTE Chart reviewed and the patient is examined. SUBJECTIVE: More dyspneic today, dry cough and had a rough night. She is well saturated on 3 liters and is producing purulent phlegm. No hemoptysis. OBJECTIVE: VITAL SIGNS: Blood pressure 174/100, pulse 103 and regular, respiratory rate 24, temperature 36.5, 98% sat on 3 liters. SKIN: Without lesion. HEENT: Atraumatic, normocephalic. PERRLA. LUNGS: Decreased breath sounds but are audible on the right posterior, rales involving the left, but no audible wheezing. CARDIAC: Sinus tachycardia, no S3. ABDOMEN: Soft, protuberant. EXTREMITIES: No significant pedal edema, clubbing, or cyanosis. NEUROLOGICAL: Intact. No lateralizing signs. No obvious air leak with inspection of the . LABORATORY DATA: Potassium 3.6, BUN 19. CT scan of today reviewed with Dr. Pelon Carcamo shows the right middle lobe is totally collapsed. There is also some subsegmental atelectasis at the right base. The contralateral lung showed some improvement when compared to previous CT scan from probable ARDS-type picture. 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 This is either secondary to a torsioned right middle lobe that has twisted on its pedicle once the patient was taken off positive pressure ventilation or secondary to mucoid impaction, which I suspect has occurred. The patient will need to undergo bronchoscopy in the operating room with a secure airway and may very well need significant bronchoalveolar lavage. It is possible the patient has a leak at the right upper lobe surgical cuff, though I think this would be much less likely as there does not appear to be an air leak as evidenced by chest tube inspection. There was good fluctuation in the chest tube with respiratory maneuvers. I spoke with Dr. Jeter who is planning a bronchoscopy tomorrow.
[2018-11-27] MEDS ORDERED: INSULIN DRIP STOP ORDER ONE (11:30)
[2018-11-27] MEDS ORDERED: COUGH DROP (SUGAR FREE) LOZ 24 LOZ/1 BOX BUCCAL PRN (17:04)
[2018-11-27] MEDS ORDERED: COUGH DROP (SUGAR FREE) LOZ 24 LOZ/1 BOX BUCCAL ONE (17:09)
[2018-11-27] MEDS ORDERED: VANCOMYCIN TROUGH ONE (18:30)
[2018-11-27] MEDS ORDERED: POLYETHYLENE (MIRALAX) 17 GM PACK PO STA (19:37)
--- NOTE | 2018-11-27 20:52 | Pharmacy Report ---
Pharmacy Abx Dose Short Note - Date of Service November 27, 2018 - Assessment & Plan Assessment 48 year old F receiving Vancomycin for treatment of pulmonary infection Day # 5 of antimicrobial therapy. Plan Laboratory Tests 11/27/18 18:36 Vancomycin Trough 15.5 Vancomycin * Trough level of 15.5 mcg/mL is therapeutic * Continue dose of 1250 mg IV every 16 hours * Goal trough level for pulmonary infection : 15 to 20 mcg/mL * Will follow up with trough level after 2-3 days or sooner if change in renal function. Pharmacy will continue to follow and will adjust dose/frequency as necessary. Thank you.
[2018-11-27] MEDS: MONTELUKAST SODIUM 10 MG TABLET PO SCH (20:53)
[2018-11-27] MEDS: INSULIN GLARGINE SOLOSTAR 100 UNITS/ML 3 ML PEN SC SCH (20:56)
--- NOTE | 2018-11-27 23:00 | Hospitalist Progress Note ---
Date of Service November 27, 2018 Assessment & Plan (1) Non-small cell cancer of right lung: - S/P Wedge of RUL (11/19) and chest tube removed on 11/22 and did have small apical PTX initially - Suspected adenocarcinoma of lung but still awaiting pathology - Surgical management per primary team; Hospitalists will continue to follow -Patient seen by pulmonary and had new chest tube placed on 11/24. Continue current pain medicine. Will order a dose of lasix, given the fluid patient received yesterday, (insulin , potassium) Will monitor. Update: D/W Dr. Gibson, will do a bronch tomorrow. (2) Hypertension: - No formal diagnosis of such but could have underlying HTN. We have several recent readings to view and mostly are in a good range. Likely a component of anxiety/stress and pain factored into readings on 11/21 and since with minimal elevated readings - She was given Lisinopril 5 mg on 11/21 and could consider this vs Norvasc if pressures continue to stay elevated. if not, might be better to just monitor for the time being as pressures have been adequate - If anti-hypertensives are decided upon would avoid BB therapy given her COPD BP appears better controlled on 11/27. will monitor. (3) Acute respiratory failure with hypoxia: - This is multifactorial between underlying COPD with exacerbation and recent wedge due to suspected nonsmall cell lung CA - It is anticipated she will need ongoing supplemental O2 - recommend 2 step be completed prior to discharge to gauge amount of need As noted above, placed chest tube. (4) COPD exacerbation: - Reports she was treated with some steroids as an outpatient prior to admission; finished a course of IV steroids in house - She follows with Chago Isidro PA-C - She was just started on Anora Ellipta as outpatient and unfortunately this is non-formulary here. Recommend to continue JAYLEN duonebs to give the TIAGO/LAMA and discussed with thoracic team about using Symbicort to give the LABA/inhaled steroid to see if this helps get her between Duonebs -- Did discuss with team that inhaled steroids wouldn't be contraindicated at this time - She does feel like when she breaths in that it feels blocked - hopefully the Mucinex can help thin secretions to promote mucous movement - also recommend utilizing spacer with inhaler unless she can take the forceful inhale and she reports the spacer has helped a lot - Mucinex - Her Abx were broadened to Vanc/Zosyn. Currently only on zosyn. - Recommend flutter valve to help move secretions (5) CKD (chronic kidney disease) stage 3, GFR 30-59 ml/min: - Review of previous labs looks like she could have a CKD - Mild elevations in Cr but appears 1.3-1.4 is baseline and will monitor Creat is 1.19 (6) Hyperglycemia: secondary to steroids. fortino obtain A1C. Likely prediabetic Better controlled. off insulin drip. Potassium is in normal range (7) Crohns disease: - S/P ileostomy - On Stellara; no current flair and just recommend outpatient F/U with her GI Spent 35 minutes in management of patient. Subjective Patient reports that today she is not feeling well. She again feels short of breath, not as bad as initally. BUt slightly worse than yesterday. She denies any fever or chills. , Will monitor. Constitutional: + fatigue and + weakness; no fever and no chills Respiratory: + dyspnea, + dyspnea on exertion and + sputum production; no cough , no hemoptysis and no wheezing Cardiovascular: + edema (face and hands - progressive); no chest pain, no palpitations and no lightheadedness Gastrointestinal: + nausea and + diarrhea/loose stools (common due to ileostomy) ; no abdominal pain, no vomiting and no constipation Psychiatric: + anxiety Physical Exam 2 Vital Signs (Past 24 Hours): Last Vital Signs Temp 36.5 C 11/27/18 22:02 Pulse 96 H 11/27/18 22:02 Resp 17 11/27/18 22:02 BP 156/99 H 11/27/18 22:02 Pulse Ox 97 11/27/18 22:02 Physical Exam: Constitutional: well developed, well nourished, in no acute distress Eyes: + anicteric sclerae ENMT: Ears: no hearing impairment Mouth: no muffled voice Throat: uvula midline Neck: trachea midline Respiratory: Able to speak in full sentences. Auscultation: Improved breath sounds; no wheezes Cardiovascular: Rate/Rhythm: regular rhythm and + tachycardic Gastrointestinal (Abdomen): Inspection/Auscultation: normal bowel sounds Percussion/Palpation: abdomen soft; abdomen nontender Musculoskeletal: Head/Neck/Chest: normocephalic, head atraumatic and neck supple Extremities: no cyanosis and no clubbing Skin: no rashes, warm and dry Neurologic: moves all extremities Psychiatric: A+Ox3, euthymic affect
[2018-11-28] MEDS ORDERED: INSULIN ASPART 100 UNITS/ML 3 ML PEN SC SCH
[2018-11-28] MEDS: PIPERACILLIN/TAZOBACTAM 3.375 GM in DEXTROSE 5% 100 ML IV SCH ×3 (00:04→17:45)
[2018-11-28] MEDS: MoRPHine SULFATE 4 MG/ML 1 ML CARP\\VIAL IV PRN ×2 (00:04→03:21)
[2018-11-28] MEDS: OXYCODONE HCL IR 5 MG TAB (IMMEDIATE RELEASE) PO PRN ×5 (01:24→23:58)
[2018-11-28] MEDS: ONDANSETRON INJ 2 MG/ML 2 ML VIAL IV PRN (01:24)
[2018-11-28] MEDS: INSULIN ASPART 100 UNITS/ML 3 ML PEN SC SCH ×4 (01:30→18:54)
[2018-11-28] MEDS: ALBUT/IPRATROP 3MG/0.5MG NEB 3 ML VIAL NEB SCH ×6 (03:41→23:08)
[2018-11-28] MEDS: VORICONAZOLE 300 MG in 0.9 % SODIUM CHLORIDE 70 ML IV SCH ×2 (04:08→17:43)
[2018-11-28] MEDS: ACETAMINOPHEN 325 MG TAB PO SCH ×4 (04:51→21:14)
--- NOTE | 2018-11-28 05:24 | Anesthesiology Consultation ---
Date of Service November 28, 2018 Assessment & Plan (1) Encounter for pre-operative examination: Additional Notes 48 yo female s/p recent wedge of RUL and chest tube for non-small cell cancer of right lung. Post operative course has been notable for respiratory failure with hypoxia due to recent surgery and COPD exacerbation. PMH significant for CKD stage 3, HTN, hyperglycemia, crohn's disease s/p ileostomy. NPO Date Last Intake of Fluids: 11/27/18 Time Last Intake of Fluids: 23:59 Date Last Intake of Solids: 11/27/18 Time Last Intake of Solids: 23:59 History Surgery Operation Date: 11/19/18 11:50 Proposed Procedures p Right Robotic Video-Assisted Thoracoscopy with Right Upper Lobe Wedge Resection, Possible Right Upper Lobectomy with Mediastinal Lymphadenectomy - Damon Jeter MD, FACS Operation Date: 11/28/18 12:45 Proposed Procedures p Bronchoscopy Respiratory - Damon Jeter MD, FACS s Right Video Assisted Thoracoscopy Middle Lobectomy, Possible Robotic - Damon Jeter MD, FACS Height/Weight Height: 5 ft 1 in Weight: 82.696 kg Allergies Allergy/AdvReac Type Severity Reaction Status Date / Time No Known Allergies Allergy Verified 11/19/18 10:17 Medications Home Medications Medication Instructions Recorded Confirmed Last Taken bupropion HCl SR 150 mg tablet,12 150 mg PO BID 07/15/18 11/19/18 11/19/18 07:00 hr sustained-release cholecalciferol (vitamin D3) 1,000 6,000 units PO DAILY cap 07/15/18 11/19/18 11/19/18 07:00 unit capsule donepezil 10 mg tablet 10 mg PO QAM 07/15/18 11/19/18 11/19/18 07:00 fluoxetine 20 mg capsule 20 mg PO TID cap 07/15/18 11/19/18 11/19/18 07:00 montelukast 10 mg tablet 10 mg PO QPM 07/15/18 11/19/18 11/19/18 07:[address] 40 mg granules 40 mg PO QAM 07/15/18 11/19/18 11/19/18 07:00 delayed-release for susp in packet trazodone 150 mg tablet 150 mg PO QPM PRN tab 10/12/0111/19/18 11/14/18 23:00 ustekinumab 90 mg/mL subcutaneous 90 mg SQ MONTHLY ml 07/15/18 11/19/18 Unknown syringe Albuterol Nebulizer 1 dose INHALATION UD PRN 10/20/18 11/19/18 10/20/18 Vitamin B12 Injections 1 dose IM UD 10/20/18 11/19/18 11/03/18 10:00 albuterol sulfate 1 - 2 puff INHALATION Q6H PRN 10/20/18 11/19/18 11/18/18 15:00 umeclidinium-vilanterol [Anoro 1 inh INHALATION DAILY 11/22/18 11/22/18 Unknown Ellipta] Active Medications Generic Name Dose Route Start Last Admin Trade Name Freq PRN Reason Stop Dose Admin Acetaminophen 650 mg 11/20/18 10:00 11/28/18 04:51 Tylenol PO 12/20/18 09:59 650 mg Q6H JAYLEN Administration Albuterol 1 - 2 puffs 11/19/18 18:28 11/26/18 17:51 Ventolin Hfa INH 12/19/18 18:27 2 puffs Q6H PRN Administration Shortness Of Breath Albuterol 3 ml 11/20/18 16:00 11/28/18 03:41 Duoneb NEB 12/20/18 15:59 3 ml Q4R JAYLEN Administration Budesonide/Formoterol Fumarate 2 puffs 11/22/18 11:45 11/27/18 20:54 Symbicort 160mcg/4.5mcg INH 12/22/18 11:44 2 puffs BID JAYLEN Administration Bupropion HCl 150 mg 11/19/18 21:00 11/27/18 20:53 Wellbutrin-Sr PO 12/19/18 20:59 150 mg BID JAYLEN Administration Docusate Sodium 100 mg 11/19/18 21:00 11/27/18 20:53 Colace PO 12/19/18 20:59 100 mg BID JAYLEN Administration Donepezil HCl 10 mg 11/20/18 09:00 11/27/18 08:48 Aricept PO 12/20/18 08:59 10 mg QAM JAYLEN Administration Enoxaparin Sodium 40 mg 11/20/18 09:00 11/27/18 08:54 Lovenox SQ 12/20/18 08:59 40 mg QAM JAYLEN Administration Fluoxetine HCl 60 mg 11/20/18 09:00 11/27/18 08:48 Prozac PO 12/20/18 08:59 60 mg QAM JAYLEN Administration Guaifenesin 600 mg 11/22/18 09:00 11/27/18 20:54 Mucinex PO 12/22/18 08:59 600 mg Q12 JAYLEN Administration Piperacillin Sod/Tazobactam 115 mls @ 28.75 mls/hr 11/23/18 16:00 11/28/18 04 :08 Sod 3.375 gm/ Dextrose IV 11/30/18 15:59 Infused Q8H JAYLEN Infusion Protocol Methylprednisolone 80 mg/ 1.28 mls @ 1.5 mls/min 11/24/18 09:00 11/27/18 20: 54 Syringe IV 12/24/18 08:59 1.5 mls/min Q12 JAYLEN Administration Voriconazole 300 mg/ Sodium 100 mls @ 66.667 mls/hr 11/24/18 14:30 11/28/18 04:08 Chloride IV 12/24/18 14:29 66.7 mls/hr Q12H JAYLEN Administration Vancomycin HCl 1,250 mg/ 275 mls @ 125 mls/hr 11/27/18 03:00 11/27/18 21:12 Sodium Chloride IV 12/04/18 02:59 Infused Q16H JAYLEN Infusion Insulin Aspart 0 units 11/28/18 00:00 11/28/18 01:30 Novolog Flexpen SC 12/27/18 11:29 Not Given Q6 JAYLEN Protocol Insulin Glargine 0 units 11/27/18 21:00 11/27/18 20:56 Lantus Solostar Pen SC 12/27/18 20:59 20 units BID JAYLEN Administration Protocol Montelukast Sodium 10 mg 11/19/18 21:00 11/27/18 20:53 Singulair PO 12/19/18 20:59 10 mg QPM JAYLEN Administration Morphine Sulfate 1 - 2 mg 11/19/18 18:28 11/28/18 03:21 Morphine Sulfate IV 12/03/18 18:27 2 mg Q1H PRN Administration Pain Ondansetron HCl 4 mg 11/19/18 18:28 11/28/18 01:24 Zofran IV 12/19/18 18:27 4 mg Q4H PRN Administration Nausea And Vomiting Oxycodone HCl 10 mg 11/24/18 17:10 11/28/18 01:24 Roxicodone Immediate Rel PO 12/08/18 14:51 10 mg Q3H PRN Administration Moderate Pain Pantoprazole Sodium 40 mg 11/20/18 09:00 11/27/18 08:48 Protonix PO 12/20/18 08:59 40 mg QAM JAYLEN Administration Vitamin D 6,000 units 11/20/18 09:00 11/27/18 08:50 Vitamin D3 PO 12/20/18 08:59 6,000 units DAILY JAYLEN Administration Past Medical History Medical History Anxiety (Chronic) Crohns disease (Chronic) Depressive disorder (Chronic) Hypothyroidism (Chronic) Left lumbar radiculitis (Chronic) Lumbago (Chronic) Myofascial pain (Chronic) Psoriasis (Chronic) Sacroiliitis (Chronic) Former smoker (Resolved) Acid reflux PT FEELS LIKE ACID REFLUX WORSENING RECENTLY Alzheimer's disease, early onset DR ALBARRAN Asthma COPD (chronic obstructive pulmonary disease) History of pancreatitis Ileostomy bag changed ILEOSTOMY BAG CURRENT Lung nodule Short-term memory loss Shortness of breath PROBLEM OVER LAST THREE MONTHS/NEEDS TO REST AFTER 5 STEPS Past Family History Family History Aunt Family history of breast cancer Past Surgical History Surgical History History of lung surgery wedge of RUL / History of ileostomy (Resolved) X2 S/P thyroidectomy (Resolved 01/07/14) History of bronchoscopy 10/31/2018 [facility]. MAC 3, Grade 1 view. 8.5 ETT. no issues. History of carpal tunnel release of both wrists History of colonoscopy History of laparoscopic cholecystectomy Past Anesthesia History No Hx of Anesthesia Complications History of PONV No Motion Sickness Screening History of Motion Sickness: No Social History Smoking Status: Former smoker tobacco type: cigarettes Smoking cigarettes per day: 10 YRS AGO Do You Dip or Chew Tobacco: No Smoking End Date: 10 years ago Hx Alcohol Use: No Hx Substance Use: No substance use type: does not use Physical Exam Vital Signs Last Vital Signs Temp 36.5 C 11/27/18 22:02 Pulse 105 H 11/28/18 03:41 Resp 18 11/28/18 03:41 BP 156/99 H 11/27/18 22:02 Pulse Ox 90 11/28/18 05:09 Testing Electrocardiogram Date: 08/07/18 Findings: + NSR @ (85) Prolonged QT. Other Testing PFT's: Minimal obstructive lung defect. Mild response to bronchodilator. Laboratory Results 11/25/18 06:10 11/27/18 08:17 Blood Type O Positive 11/19/18 10:16 Antibody Screen POSITIVE A 11/19/18 10:16 PT 10.5 Seconds (9.0-12.0) 11/19/18 19:08 INR 1.0 (0.9-1.1) 11/19/18 19:08 Hemoglobin A1c 6.5 % (4.5-5.6) H 11/27/18 08:17 11/23/18 Unknown Gram Stain - Final Sputum, Expectorated Sputum Culture - Final Heavy normal yelena. 11/19/18 14:43 Fungal Smear - Final Lung Fungal Culture - Preliminary Aspergillus sp.not fumigatus 11/19/18 13:49 Fungal Smear - Final Lung,Right Upper Lobe Fungal Culture - Preliminary Penicillium species 11/19/18 14:43 Gram Stain - Final Lung Aerobic and Anaerobic Culture - Final Aspergillus sp.not fumigatus 11/19/18 13:58 Gram Stain - Final Lymph Node Aerobic and Anaerobic Culture - Final No growth 11/19/18 13:49 Gram Stain - Final Lung,Right Upper Lobe Aerobic and Anaerobic Culture - Final No growth 11/19/18 13:58 Fungal Smear - Final Lymph Node Fungal Culture - Preliminary No yeast or fungus isolated - Report 1, Additional Report to Follow. 11/19/18 14:43 Acid Fast Bacilli Smear - Final Lung 11/19/18 13:58 Acid Fast Bacilli Smear - Final Lymph Node 11/19/18 13:49 Acid Fast Bacilli Smear - Final Lung,Right Upper Lobe 11/28/18 11/27/18 00:03 20:29 POC Glucose 116 H 233 H
[2018-11-28 07:41] LABS: Basophils # (auto) 0.01 K/uL (0-0.2); Basophils % (auto) 0.1 %; Hematocrit (blood only) 31.2 % (37-47); Hemoglobin 9.9 g/dL (12.0-16.0); Immature Granulocytes # (auto) 0.26 K/uL (0.00-0.02); Immature Granulocytes % (auto) 2.3 %; Lymphocytes # (auto) 0.87 K/uL (1.2-3.4); Lymphocytes % (auto) 7.8 %; Mean Corpuscular Hgb Conc 31.7 g/dL (32-36); Mean Corpuscular Volume 84.3 fL (80-100); Mean Platelet Volume 9.9 fL (7.4-10.4); Monocytes # (auto) 0.69 K/uL (0.11-0.59); Monocytes % (auto) 6.2 %; Neutrophils # (auto) 9.36 K/uL (1.4-6.5); Neutrophils % (auto) 83.6 %; Platelet Count 314 K/uL (130-400); RDW Coefficient of Variation 15.2 % (11.5-14.5); RDW Standard Deviation 47.3 fL (36.4-46.3); White Blood Count 11.19 K/uL (4.8-10.8)
--- NOTE | 2018-11-28 07:53 | XRay Report ---
XR chest 1V portable CLINICAL HISTORY: pneumothorax COMPARISON STUDY: 11/26/2018 FINDINGS: No or only minimal residual right apical pneumothorax. All remaining components of the study are stable. Potential increase in density right to lesser exten t left base. IMPRESSION: No significant residual pneumothorax. Slight increase in parenchymal prominence both tyree g bases. The above report was generated using voice recognition software. It may contain grammatical, syntax or spelling errors. Electronically signed by: Casey Pierce M.D. 11/28/2018 7:52 AM
[2018-11-28 08:15] LABS: BUN Creatinine Ratio 19.6 (10-20); Calcium 7.9 mg/dl (8.5-10.1); Creatinine Clr Calc Pharmacy 55.1 ml/min; Est GFR (African American) 61.6; Est GFR (Non-African American) 53.2; Potassium 3.4 mmol/L (3.5-5.1)
[2018-11-28] MEDS: DOCUSATE SODIUM 100 MG CAP PO SCH ×2 (09:06→21:14)
[2018-11-28] MEDS: DONEPEZIL HCL 10 MG TAB PO SCH (09:06)
[2018-11-28] MEDS: BUDESONIDE/FORMOTEROL FUMARATE 160/4.5 60 PUFFS/INHALER INH SCH ×2 (09:07→21:15)
[2018-11-28] MEDS: CHOLECALCIFEROL 1,000 UNITS TAB PO SCH (09:07)
[2018-11-28] MEDS: guaiFENesin 600 MG TABCR PO SCH ×2 (09:07→21:14)
[2018-11-28] MEDS: BuPROPion SR 150 MG TABCR PO SCH ×2 (09:07→21:14)
[2018-11-28] MEDS: methylPREDNISolone 80 MG in SYRINGE 0 ML IV SCH ×2 (09:08→21:15)
[2018-11-28] MEDS: PANTOprazole 40 MG TAB PO SCH (09:08)
[2018-11-28] MEDS: FLUOXETINE HCL 20 MG CAP PO SCH (09:08)
[2018-11-28] MEDS: ENOXAPARIN INJ 40 MG/0.4 ML SYR SQ SCH (09:09)
[2018-11-28] MEDS: INSULIN GLARGINE SOLOSTAR 100 UNITS/ML 3 ML PEN SC SCH ×2 (09:11→21:20)
[2018-11-28] MEDS: VANCOMYCIN HCL 1,250 MG in SODIUM CHLORIDE 0.9% 250 ML IV SCH (11:26)
--- NOTE | 2018-11-28 11:55 | Pharmacy Report ---
Pharmacy Glycemic Short Note 2 - Date of Service November 28, 2018 - Glycemic Short BSG Results (Last 24 hours): 11/27/18 11/27/18 11/28/18 16:51 20:29 00:03 Glucose POC Glucose 141 H 233 H 116 H 11/28/18 11/28/18 06:07 07:15 Glucose 138 H POC Glucose 159 H OUTPATIENT ANTIDIABETIC REGIMEN: * N/A * A1c = 6.5% on 11/27/18 * This is diagnostic for diabetes, however, patient was just on a medrol dose pack and receives multiple courses of predisone. 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 Current dosing is weight/high stress dosing for Solumedrol 80mg IV Q12hrs. OK to give this dose while NPO. Basal insulin dose will need decreased once total daily solumedrol dosig is below 80mg/day. * Pt NPO for bronch today. No changes needed to bolus insulin. Post-prandial BSGs are trending in the right direction with current orders. PLAN FOR INPATIENT GLYCEMIC CONTROL: no changes needed today. * Basal insulin * Lantus 20 units SQ BID * Bolus insulin * NovoLog per scale ACHS or Q6hrs while NPO * Goal Range: Low 110 mg/dL - High 140 mg/dL * Correction Factor: 20 mg/dL/unit * Nutritional / Prandial insulin per carb ratio of 1 unit per 6 grams CHO consumed * Taper insulin with each step down in steroid dosing
--- NOTE | 2018-11-28 12:41 | Progress Note ---
DATE: 11/28/2018 Chart reviewed, the patient examined. SUBJECTIVE: Seems improved, producing phlegm. Less dyspneic. OBJECTIVE: VITAL SIGNS: Blood pressure 159/83, pulse 97 and regular, respiratory rate 21, temperature 36.8, 95% sat on 3 liters. SKIN: Without lesion. HEENT: Atraumatic, normocephalic. PERRLA. LUNGS: Distant, but improved aeration. CARDIAC: Unchanged. ABDOMEN: Soft, protuberant. EXTREMITIES: No pedal edema, clubbing or cyanosis. LABORATORY DATA: Chest x-ray shows complete expansion of the right lung, still cannot rule out some degree of right middle lobe atelectasis. PLAN: Bronchoscopy with BAL with Dr. Jeter in the OR and suspect resolving mucoid impaction with distal atelectasis, especially involving the right middle lobe and segmental bronchi involving the right lower lobe.
--- NOTE | 2018-11-28 13:34 | History & Physical Bridge Note ---
Date of Service November 28, 2018 History & Physical Bridge Note I have examined the patient, reviewed the History & Physical and in the interval since the performance of the History & Physical I have noted the following changes of clinical significance: no changes noted
[2018-11-28] MEDS ORDERED: MIDAZOLAM HCL 1 MG/ML 2ML VIAL ONE (14:12)
[2018-11-28] MEDS ORDERED: ROCURONIUM BROMIDE 10 MG/ML 5 ML VIAL ONE (14:17)
[2018-11-28] MEDS ORDERED: LIDOCAINE HCL 2% 2 ML VIAL/AMP(20MG/ML) INFIL ONE (14:17)
[2018-11-28] MEDS ORDERED: PROPOFOL IV EMULSION 10 MG/ML 20 ML VIAL IV ONE (14:17)
[2018-11-28] MEDS ORDERED: fentaNYL citrate 100 MCG/2 ML VIAL ONE (14:17)
[2018-11-28] MEDS ORDERED: fentaNYL citrate 100 MCG/2 ML VIAL IV PRN (14:56)
[2018-11-28] MEDS ORDERED: ATROPINE SULFATE 0.1 MG/ML 10ML SYR IV PRN (14:56)
[2018-11-28] MEDS ORDERED: ONDANSETRON INJ 2 MG/ML 2 ML VIAL IV PRN (14:56)
[2018-11-28] MEDS ORDERED: HYDROmorphone INJ 1 MG/ML SYRINGE IV PRN (14:56)
[2018-11-28] MEDS ORDERED: ePHEDrine sulfate 50 MG/ML AMP IV PRN (14:56)
--- NOTE | 2018-11-28 15:03 | Post Operative Brief Note ---
Immediate Post Op Note v1 Date of Surgery November 28, 2018 Pre & Post Diagnosis Pre-op: Incomplete expansion right middle lobe S/P RATS with right upper lobectomy NSCLC RUL Post-op: Old blood and clot occluding RML bronchus Procedure Operation Date: 11/28/18 12:45 Therapeutic Fiberoptic Bronchoscopy Surgeon Damon Jeter MD, FACS Illuminating Engineer Tatiana Schaffer [employer] Estimated Blood Loss 0 Findings Consistent with Post-Op Diagnosis Drains Coude Catheter and Dennis Catheter
[2018-11-28] MEDS ORDERED: SUGAMMADEX SODIUM 200 MG/2 ML VIAL IV ONE (15:05)
--- NOTE | 2018-11-28 15:46 | XRay Report ---
XR chest 1V portable CLINICAL HISTORY: s/p FOB COMPARISON STUDY: Chest CT November 27, 2018. Chest radiograph November 28, 2018 7:06 AM. FINDINGS: Right apical chest tube is in place. There is a suspected small right hydropneumothorax. Ri ght paratracheal right perihilar opacity is noted. There is also right basilar opacity. There are pos toperative findings within the right hemithorax with volume loss. Cardiomegaly is unchanged. Diffuse interstitial thickening is unchanged. A small amount of soft tissue gas within the right chest wall i s noted. IMPRESSION: 1. Right apical chest tube in place. Small right hydropneumothorax. 2. Right paratracheal, perihilar and basilar opacities. 3. Persistent interstitial thickening and patchy opacities within the left lung. Electronically signed by: Tone Siegel M.D. 11/28/2018 3:45 PM
--- NOTE | 2018-11-28 16:26 | Anesthesiology Progress Note ---
Date of Service November 28, 2018 Anesthesia Post Procedure Vital Signs Vital Signs: Temp Pulse Pulse Resp BP BP Pulse Ox 11/28/18 16:00 36.6 C 86 18 142/86 H 94 11/28/18 15:50 36.6 C 95 H 18 142/88 H 98 11/28/18 15:40 95 H 18 145/90 H 98 11/28/18 15:30 97 H 18 144/90 H 94 11/28/18 15:20 93 H 18 146/102 H 100 11/28/18 15:13 37.0 C 94 H 18 153/93 H 98 11/28/18 13:07 36.9 C 99 H 20 138/99 98 11/28/18 11:49 90 18 98 11/28/18 07:59 36.6 C 97 H 21 159/83 H 95 11/28/18 07:24 98 H 18 97 11/28/18 05:09 90 11/28/18 03:41 105 H 18 94 11/27/18 23:19 93 H 18 97 11/27/18 22:02 36.5 C 96 H 17 156/99 H 97 11/27/18 19:37 105 H 20 95 Pain Intensity Back: Pain Intensity: 8 Right Shoulder: Pain Intensity: 8 Right Chest: Pain Intensity: 6 Notes Mental Status: alert / awake / arousable and participated in evaluation Patient Amnestic to Procedure: Yes Nausea / Vomiting: adequately controlled Pain: adequately controlled Airway Patency, RR, SpO2: stable & adequate BP & HR: stable & adequate Hydration State: stable & adequate Anesthetic Complications: no major complications apparent and Pt Satisfied with anesthetic care Notes: The surgery was originally scheduled for bronch and what was thought to likely be a VATS (patient had previous lung surgery recently). I did not personally start the procedure but as the oncall provider I was called in at the end of the case as the [employer]IC[employer] ETCH OPERATOR there stated he and the attending anesthesiologist had given a large dose of rocuronium and the procedure was completed in a timely manner (just a bronch) and the patient had very minimal return of muscle twitches on train of four. I decided to administer sugammadex to this patient as she already had respiratory dysfunction and I did not want her to be weak upon emerging from anesthesia and in the PACU (along with increasing her OR time waiting for return of twitches). Sugammadex was given and within one and a half minutes patient easily met extubation criteria. She was extubated easily and recovered quickly and uneventfully in the recovery room. Prior to her being discharged, I explained that she was given sugammadex and had her sign the form indicating that this could interfere with hormone contraceptives. Patient stated she was post-menopausal but agreed to use barrier protection or abstain from sexual intercourse if necessary. All questions were answered.
[2018-11-28] MEDS: MONTELUKAST SODIUM 10 MG TABLET PO SCH (21:14)
[2018-11-28] MEDS ORDERED: INSULIN ASPART 100 UNITS/ML 3 ML PEN SC ONE (22:00)
[2018-11-28] MEDS ORDERED: POLYETHYLENE (MIRALAX) 17 GM PACK PO PRN (22:10)
[2018-11-29] MEDS: PIPERACILLIN/TAZOBACTAM 3.375 GM in DEXTROSE 5% 100 ML IV SCH ×4 (00:11→16:29)
--- NOTE | 2018-11-29 00:40 | Operative Report ---
DATE OF OPERATION: 11/28/2018 PREOPERATIVE DIAGNOSES: 1. Incomplete expansion of the right middle lobe. 2. Status post robot-assisted thoracoscopic right upper lobectomy for nonsmall cell lung carcinoma. 3. Hypoxia. 4. 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 POSTOPERATIVE DIAGNOSIS: Old clot occluding right middle lobe bronchus. PROCEDURE: Therapeutic bronchoscopy with removal of right middle lobe occluding clot and sputum. SURGEON: Damon Jeter MD TRUCK REPAIR SERVICE ESTIMATOR: Tatiana Schaffer RRT ANESTHESIA: General anesthesia, endotracheal intubation. INDICATION FOR PROCEDURE AND FINDINGS: This patient is a 48-year-old female who underwent a robot-assisted thoracoscopic right upper lobectomy and mediastinal lymphadenectomy 9 days ago for what turned out to be actually 2 separate primaries. 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 Her margins and lymph nodes are negative. She will not require further therapy. Unfortunately, there has been a problem with incomplete expansion of the right middle lobe since surgery. The patient has been ambulating in the hallway and coughing very well. She developed an infiltrative process involving her entire left lung and I was quite concerned about her, but she got over this. She may have been fluid overloaded. She also has some renal insufficiency. She also had a productive cough, but this cleared with antibiotics. She has gotten a couple of CT scans and surgery and her middle lobe simply is not opening up. She did inflate while we were in the Operating Room. It did not appear she had a torsion of the middle lobe. I had actually planned to do a right middle lobectomy should our bronchoscopy today show a torsion or occlusion of the bronchus. On 11/28/2018, the patient was brought to the Operating Room and underwent an endotracheal intubation. With a single lumen tube, I performed a fiberoptic bronchoscopy in preparation for possible right middle lobectomy. I was surprised and quite pleased actually to see that her obstruction was caused by a fairly large organized clot which we removed easily. I was able to suction this out and we got out into the medial and lateral segments of the middle lobe without difficulty and there was no evidence of any compromise. It looks quite good actually. We did suction out the basilar segments and bronchus intermedius and really there was no further sputum or clot. I also suctioned and irrigated out the left and this was clear. Actually, it looked quite good when I finished. We had no bleeding and the middle lobe bronchus did appear to be mildly inflamed. She tolerated it well. She was extubated in the room and immediately stated that her breathing was better. I was quite pleased with her. She tolerated it well. I attest to the content of the Intraoperative Record and any orders documented therein. Any exceptions are noted below. LIONEL
[2018-11-29] MEDS: OXYCODONE HCL IR 5 MG TAB (IMMEDIATE RELEASE) PO PRN ×5 (03:48→21:26)
[2018-11-29] MEDS: ALBUT/IPRATROP 3MG/0.5MG NEB 3 ML VIAL NEB SCH ×6 (04:27→23:00)
[2018-11-29] MEDS: VANCOMYCIN HCL 1,250 MG in SODIUM CHLORIDE 0.9% 250 ML IV SCH (04:38)
[2018-11-29] MEDS: VORICONAZOLE 300 MG in 0.9 % SODIUM CHLORIDE 70 ML IV SCH (04:40)
[2018-11-29] MEDS: ACETAMINOPHEN 325 MG TAB PO SCH ×3 (05:04→16:00)
--- NOTE | 2018-11-29 07:01 | XRay Report ---
XR chest 1V portable CLINICAL HISTORY: RUL COMPARISON STUDY: Chest radiograph November 28, 2018. FINDINGS: Right apical chest tube remains in place. Right paratracheal, right perihilar and right bas ilar opacities persist. A discrete displaced pleural line is difficult to identify. There is a suspec warren small right hydropneumothorax which is likely similar to prior exam. Cardiomediastinal silhouette is stable. Left lung interstitial thickening and airspace opacities persist. IMPRESSION: 1. Right chest tube in place. Suspected right hydropneumothorax which is likely similar to prior exam . 2. No significant change in right peritracheal, right perihilar and right basilar opacities as well a s interstitial thickening and mild opacities within the left lung. Electronically signed by: Tone Siegel M.D. 11/29/2018 7:00 AM
[2018-11-29] MEDS: INSULIN ASPART 100 UNITS/ML 3 ML PEN SC SCH ×4 (09:10→21:19)
[2018-11-29] MEDS: BuPROPion SR 150 MG TABCR PO SCH ×2 (09:16→21:06)
[2018-11-29] MEDS: BUDESONIDE/FORMOTEROL FUMARATE 160/4.5 60 PUFFS/INHALER INH SCH ×2 (09:16→21:07)
[2018-11-29] MEDS: CHOLECALCIFEROL 1,000 UNITS TAB PO SCH (09:16)
[2018-11-29] MEDS: PANTOprazole 40 MG TAB PO SCH (09:17)
[2018-11-29] MEDS: methylPREDNISolone 80 MG in SYRINGE 0 ML IV SCH (09:17)
[2018-11-29] MEDS: guaiFENesin 600 MG TABCR PO SCH ×2 (09:17→21:06)
[2018-11-29] MEDS: ENOXAPARIN INJ 40 MG/0.4 ML SYR SQ SCH (09:18)
[2018-11-29] MEDS: DONEPEZIL HCL 10 MG TAB PO SCH (09:19)
[2018-11-29] MEDS: FLUOXETINE HCL 20 MG CAP PO SCH (09:19)
[2018-11-29] MEDS: DOCUSATE SODIUM 100 MG CAP PO SCH ×2 (09:19→21:06)
[2018-11-29] MEDS: INSULIN GLARGINE SOLOSTAR 100 UNITS/ML 3 ML PEN SC SCH (09:23)
--- NOTE | 2018-11-29 10:43 | Anesthesiology Progress Note ---
Date of Service November 29, 2018 Anesthesia Post Procedure Vital Signs Vital Signs: Temp Pulse Pulse Pulse Resp BP Pulse Ox 11/29/18 08:19 94 11/29/18 08:17 85 L 11/29/18 08:16 83 L 11/29/18 08:15 79 L 11/29/18 07:39 91 H 16 98 11/29/18 07:00 36.4 C L 99 H 20 130/80 97 11/29/18 04:27 88 17 93 11/29/18 03:45 36.4 C L 84 18 162/98 H 94 11/29/18 00:05 36.6 C 89 18 165/102 H 97 11/28/18 23:09 107 H 22 92 11/28/18 20:23 83 18 98 11/28/18 19:18 36.6 C 97 H 22 127/79 97 11/28/18 18:20 36.6 C 100 H 22 130/79 98 11/28/18 17:20 36.8 C 102 H 22 156/79 H 94 11/28/18 16:49 154/88 H 11/28/18 16:43 36.5 C 97 H 20 91 11/28/18 16:15 36.5 C 96 H 18 137/89 97 11/28/18 16:00 36.6 C 86 18 142/86 H 94 11/28/18 15:50 36.6 C 95 H 18 142/88 H 98 11/28/18 15:40 95 H 18 145/90 H 98 11/28/18 15:30 97 H 18 144/90 H 94 11/28/18 15:20 93 H 18 146/102 H 100 11/28/18 15:13 37.0 C 94 H 18 153/93 H 98 11/28/18 13:07 36.9 C 99 H 20 138/99 98 11/28/18 11:49 90 18 98 Notes Mental Status: alert / awake / arousable Patient Amnestic to Procedure: Yes Nausea / Vomiting: adequately controlled Pain: adequately controlled Airway Patency, RR, SpO2: stable & adequate BP & HR: stable & adequate Hydration State: stable & adequate Anesthetic Complications: no major complications apparent and Pt Satisfied with anesthetic care
--- NOTE | 2018-11-29 11:11 | XRay Report ---
XR chest 1V portable CLINICAL HISTORY: chest tube removal COMPARISON STUDY: Chest radiograph November 29, 2018 at 6:20 AM. FINDINGS: Postoperative findings within the right hemithorax are noted. Right chest tube has been rem edmundo. A suspected small right hydropneumothorax is unchanged. Right perihilar opacity has slightly im proved from earlier exam. There is right basilar opacity. Interstitial thickening and mild opacities within the left lung are unchanged. Cardiomediastinal silhouette is stable. IMPRESSION: 1. No significant change in a small right hydropneumothorax following chest tube removal. 2. Right perihilar opacity, slightly improved from earlier exams. Persistent right basilar opacity an d mild left lung airspace opacities with interstitial thickening. Electronically signed by: Tone Siegel M.D. 11/29/2018 11:10 AM
--- NOTE | 2018-11-29 11:50 | Progress Note ---
DATE: 11/29/2018 Ms. Isidro was seen today. I removed her right chest tube and her x-ray I think is improved. She has better aeration on the right. She is still on 2 liters, we are attempting to wean this down. I am going to stop all of her antibiotics and other meds except for her voriconazole. Dr. Gibson will help to determine when to stop this as an outpatient. At this point, I was quite pleased with her considering everything. She still is more short of breath than we would like. We are going to push her to ambulate and see if we can wean her now that her chest tube is out and we are stopping her IVs. MTDD
[2018-11-29] MEDS: CARBOHYDRATES FOR HYPOGLYCEMIA PO PRN (12:10)
--- NOTE | 2018-11-29 12:40 | Pharmacy Report ---
Pharmacy Glycemic Short Note 2 - Date of Service November 29, 2018 - Glycemic Short BSG Results (Last 24 hours): 11/28/18 11/28/18 11/28/18 15:43 17:07 20:44 POC Glucose 134 H 151 H 115 H 11/29/18 11/29/18 11/29/18 08:17 12:04 12:07 POC Glucose 187 H 49 L* 47 L* 11/29/18 12:25 POC Glucose 92 OUTPATIENT ANTIDIABETIC REGIMEN: * N/A * A1c = 6.5% on 11/27/18 * This is diagnostic for diabetes, however, patient was just on a medrol dose pack and receives multiple courses of predisone. 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 * Patient hypoglycemic prior to lunch today and symptomatic. * Steroids - Patient received Solu-medrol 80mg IV this morning, changed to Prednisone 20mg BID starting tonight. * Place Lantus on hold now, patient had 20 units this morning. * Loosen CF and CR. PLAN FOR INPATIENT GLYCEMIC CONTROL: no changes needed today. * Basal insulin - HOLD * Bolus insulin * NovoLog per scale ACHS or Q6hrs while NPO * Goal Range: Low 110 mg/dL - High 140 mg/dL * LOOSEN: Correction Factor: 30 mg/dL/unit * LOOSEN: Nutritional / Prandial insulin per carb ratio of 1 unit per 12 grams CHO consumed * Taper insulin with each step down in steroid dosing
[2018-11-29] MEDS: VORICONAZOLE 200 MG TABLET PO SCH ×2 (14:06→21:06)
--- NOTE | 2018-11-29 14:14 | Progress Note ---
DATE: 11/29/2018 PULMONARY MEDICINE PROGRESS NOTE Chart reviewed, the patient examined. SUBJECTIVE: The patient felt immediately improved post-extubation in the OR after bronchoscopy by Dr. Jeter. In discussion with him this morning and reviewing his operative note, a large blood clot was seen occluding the right middle lobe bronchus and this area was lavaged copiously with saline along with certain segmental bronchi involving the right lower lobe. The patient states in the interim, she remains quite dyspneic in fact became panicky last night when her oxygen was titrated to 1 liter and she desaturated. Her chest tube is not draining significant fluid and does not appear to be fluctuating this morning. There has been no air leak for several days. Dr. Jeter was to remove the chest tube. While there is some improvement in the chest x-ray with improved aeration, I am still concerned that the right middle lobe least on film and on exam appears atelectatic and is still a small but persistent right hydropneumothorax. While there is improvement, I think we can reduce her intravenous fluid administration and go with p.o. prednisone. I am still concerned about the right middle lobe and persistent atelectasis. Will watch accordingly and switch also to p.o. Voriconazole.
[2018-11-29] MEDS: predniSONE 20 MG TAB PO SCH (21:06)
[2018-11-29] MEDS: MONTELUKAST SODIUM 10 MG TABLET PO SCH (21:06)
[2018-11-30] MEDS: ACETAMINOPHEN 325 MG TAB PO SCH ×5 (00:12→21:50)
[2018-11-30] MEDS: OXYCODONE HCL IR 5 MG TAB (IMMEDIATE RELEASE) PO PRN ×7 (00:19→22:39)
[2018-11-30] MEDS: PIPERACILLIN/TAZOBACTAM 3.375 GM in DEXTROSE 5% 100 ML IV SCH ×2 (00:19→16:36)
[2018-11-30] MEDS: ALBUT/IPRATROP 3MG/0.5MG NEB 3 ML VIAL NEB SCH ×6 (03:48→23:19)
[2018-11-30 06:48] LABS: Creatinine Clr Calc Pharmacy 55.6 ml/min; Est GFR (African American) 62.3; Est GFR (Non-African American) 53.7
[2018-11-30] MEDS: CHOLECALCIFEROL 1,000 UNITS TAB PO SCH (09:05)
[2018-11-30] MEDS: FLUOXETINE HCL 20 MG CAP PO SCH (09:06)
[2018-11-30] MEDS: BuPROPion SR 150 MG TABCR PO SCH ×2 (09:06→20:47)
[2018-11-30] MEDS: predniSONE 20 MG TAB PO SCH ×2 (09:07→20:45)
[2018-11-30] MEDS: guaiFENesin 600 MG TABCR PO SCH ×2 (09:07→21:49)
[2018-11-30] MEDS: DOCUSATE SODIUM 100 MG CAP PO SCH ×2 (09:07→20:45)
[2018-11-30] MEDS: DONEPEZIL HCL 10 MG TAB PO SCH (09:07)
[2018-11-30] MEDS: ENOXAPARIN INJ 40 MG/0.4 ML SYR SQ SCH (09:08)
[2018-11-30] MEDS: BUDESONIDE/FORMOTEROL FUMARATE 160/4.5 60 PUFFS/INHALER INH SCH ×2 (09:08→20:46)
[2018-11-30] MEDS: VORICONAZOLE 200 MG TABLET PO SCH ×2 (09:09→20:46)
[2018-11-30] MEDS: INSULIN ASPART 100 UNITS/ML 3 ML PEN SC SCH ×4 (09:11→20:44)
--- NOTE | 2018-11-30 09:25 | Pharmacy Report ---
Pharmacy Glycemic Short Note 2 - Date of Service November 30, 2018 - Glycemic Short BSG Results (Last 24 hours): 11/29/18 11/29/18 11/29/18 12:04 12:07 12:25 POC Glucose 49 L* 47 L* 92 11/29/18 11/29/18 11/29/18 13:29 17:09 20:40 POC Glucose 133 H 195 H 194 H 11/30/18 08:22 POC Glucose 104 H OUTPATIENT ANTIDIABETIC REGIMEN: * N/A * A1c = 6.5% on 11/27/18 * This is diagnostic for diabetes, however, patient was just on a medrol dose pack and receives multiple courses of predisone. 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 * Steroids -changed to Prednisone 20mg BID starting last night. * Patient had Lantus 20 units QAM yesterday then placed on hold for hypoglycemia , will restart at a reduced dose. * CF and CR loosened yesterday, blood sugars at goal since then, continue at this time. PLAN FOR INPATIENT GLYCEMIC CONTROL: no changes needed today. * Basal insulin * Lantus 12 units daily * Bolus insulin * NovoLog per scale ACHS or Q6hrs while NPO * Goal Range: Low 110 mg/dL - High 140 mg/dL * Correction Factor: 30 mg/dL/unit * Nutritional / Prandial insulin per carb ratio of 1 unit per 12 grams CHO consumed * Taper insulin with each step down in steroid dosing
[2018-11-30] MEDS ORDERED: INSULIN GLARGINE SOLOSTAR 100 UNITS/ML 3 ML PEN SC SCH (09:30)
[2018-11-30] MEDS ORDERED: VANCOMYCIN TROUGH ONE (10:30)
--- NOTE | 2018-11-30 10:47 | Progress Note ---
DATE: 11/30/2018 Chart reviewed, patient examined. SUBJECTIVE: The patient was in the chair, having breakfast when I arrived. She states that once again last evening they tried to titrate her oxygen down to 1 liter and she felt like she was "suffocating." She is back to 2 liters with adequate saturation. I have instructed the nursing staff not to try to wean her O2 additionally during this admission as it tends to create a lot of distress for the patient. She still has right-sided chest discomfort and when she takes deep breaths, she states, "I can feel something moving around down there." Her sputum is clear. No further hemoptysis. No other symptoms noted, but she does feel dyspneic with exertion. Apparently, she had a hypoglycemic reaction yesterday; therefore, ambulation and physical therapy was limited. OBJECTIVE: CURRENT VITAL SIGNS: Blood pressure 146/87, pulse 99 and regular, respiratory rate 18, temperature 36.5, O2 sat 93% on 2 liters. SKIN: Warm and dry. HEENT: Atraumatic, normocephalic. PERRLA. EOMI. Conjunctivae pale. Sclerae nonicteric. Fundi poorly visualized. NECK: Neck veins are not distended at 45 degrees. LUNGS: Have good breath sounds right axillary and posterior lung mcrae. CARDIOVASCULAR: There are some crackles over the left base, but distant P and A. No audible wheezes. CARDIAC: Sinus tachycardia. No murmurs or gallops. ABDOMEN: Soft, protuberant. EXTREMITIES: No significant pedal edema, clubbing or cyanosis. NEUROLOGIC: Intact. No lateralizing signs. DIAGNOSTIC DATA: Chest x-ray today is pending. Yesterday it showed chest tubes have been removed, small right-sided hydropneumothorax is unchanged, right perihilar opacity slightly improved, but with persistent basilar opacity and mid left lung field airspace opacity and interstitial thickening is noted. Certainly cannot tell from that plain radiograph whether the middle lobe has better aeration and I believe there is some improvement. LABORATORY DATA: White count on the was 11,000, H and H was stable at 9.9 and 31.2. Blood work still pending from today. OVERALL ASSESSMENT: A 48-year-old status post VATS procedure with right upper lobectomy for 2 coincidental bronchogenic neoplasms with postoperative issues including acute hypoxic respiratory failure with probable acute respiratory distress syndrome involving the left lung from possible acute lung injury and with persistent right middle lobe atelectasis from occlusion with persistent right hydropneumothorax. We also are covering the patient for an Aspergillus infection in the lung despite the absence of seeing hyphae or sign of the organism in the tissue, but the Aspergillus non-fumigatus species was growing from the lung tissue itself. She was switched to oral voriconazole, seems to be tolerating that medication. In addition, intravenous medications were either discontinued or converted yesterday. She is now on an oral dose of prednisone and actually became hypoglycemic yesterday precluding ambulation and physical therapy. I have instructed the nurses at this point in time to not attempt to titrate down her oxygen at night as this tends to cause extreme anxiety and that we would schedule physical therapy and try to work on her ambulation today. I am still concerned about persistent right middle lobe atelectasis, but certainly mobilizing the patient could be very helpful.
--- NOTE | 2018-11-30 11:01 | Progress Note ---
DATE: 11/30/2018 Yu looks better today. She is only on 2 liters, but she is not ambulating much. Her blood sugars dropped a bit yesterday and her hypoglycemics are being monitored and manipulated. She looks better to me today. Heart rate is in the 90s. Oxygenation, she is 94% on 2 liters. Her lungs sound good today with no wheezing. We will check an x-ray in the morning, but her incisions look good. She is still having considerable amount of pain and is still quite short of breath which is not surprising. We are going to continue walking her. She did not walk much yesterday and we will see about how she looks tomorrow. I would like to barely get her home, but her support system is not the best.
[2018-11-30] MEDS: MONTELUKAST SODIUM 10 MG TABLET PO SCH (20:46)
[2018-12-01] MEDS: OXYCODONE HCL IR 5 MG TAB (IMMEDIATE RELEASE) PO PRN ×7 (01:58→23:18)
[2018-12-01] MEDS: ALBUT/IPRATROP 3MG/0.5MG NEB 3 ML VIAL NEB SCH ×6 (03:13→23:30)
[2018-12-01] MEDS: ACETAMINOPHEN 325 MG TAB PO SCH ×4 (04:44→21:05)
[2018-12-01 06:30] LABS: Hematocrit (blood only) 32.3 % (37-47); Hemoglobin 10.1 g/dL (12.0-16.0); Mean Corpuscular Hgb Conc 31.3 g/dL (32-36); Mean Platelet Volume 9.5 fL (7.4-10.4); Platelet Count 364 K/uL (130-400); RDW Coefficient of Variation 15.4 % (11.5-14.5); RDW Standard Deviation 47.7 fL (36.4-46.3); White Blood Count 12.45 K/uL (4.8-10.8)
[2018-12-01 07:00] LABS: BUN Creatinine Ratio 20.7 (10-20); Calcium 8.2 mg/dl (8.5-10.1); Creatinine Clr Calc Pharmacy 55.1 ml/min; Est GFR (African American) 61.6; Est GFR (Non-African American) 53.2; Potassium 3.9 mmol/L (3.5-5.1)
--- NOTE | 2018-12-01 07:45 | XRay Report ---
XR chest 1V portable HISTORY: 48 years-old Female lobectomy status post chest tube removal. Prior surgery of the right tarun ng. COMPARISON: Chest radiograph 11/29/2018 TECHNIQUE: Portable AP view of the chest FINDINGS: Near complete resolution of the previously described subcutaneous emphysema about the lateral right c hest wall. Postoperative changes of the right lung redemonstrated. A suspected small right-sided hydr opneumothorax appears unchanged. Ill-defined opacities of the right midlung and right lung base are a lso unchanged along with mild background interstitial coarsening. Mildly improved aeration about the left lung. Cardiac silhouette is enlarged, unchanged. No left-sided pneumothorax or large left pleura l effusion. Degenerative changes of the shoulders and spine. IMPRESSION: 1. Postoperative changes of the right lung with unchanged small right hydropneumothorax. 2. Right perihilar and right lung base opacities also appear stable. 3. Mildly improved aeration of the left lung base. The above report was generated using voice recognition software. It may contain grammatical, syntax o r spelling errors. Electronically signed by: Jean Thorpe M.D. 12/01/2018 7:44 AM
[2018-12-01] MEDS: DONEPEZIL HCL 10 MG TAB PO SCH (08:29)
[2018-12-01] MEDS: predniSONE 20 MG TAB PO SCH (08:30)
[2018-12-01] MEDS: FLUOXETINE HCL 20 MG CAP PO SCH (08:31)
[2018-12-01] MEDS: DOCUSATE SODIUM 100 MG CAP PO SCH ×2 (08:31→21:04)
--- NOTE | 2018-12-01 08:31 | Anesthesiology Progress Note ---
Date of Service December 01, 2018 Anesthesia Post Procedure Vital Signs Vital Signs: Temp Pulse Pulse Resp BP BP Pulse Ox 12/01/18 07:47 36.7 C 92 H 17 158/90 H 98 12/01/18 07:21 92 H 14 90 12/01/18 03:14 87 20 95 11/30/18 23:21 95 H 20 93 11/30/18 23:13 36.7 C 89 16 153/94 H 97 11/30/18 23:12 36.7 C 89 16 98 11/30/18 19:47 102 H 16 93 11/30/18 15:14 90 20 94 11/30/18 14:59 36.8 C 84 17 159/100 H 97 11/30/18 14:02 95 11/30/18 11:28 94 H 18 98 Notes Mental Status: alert / awake / arousable and participated in evaluation Nausea / Vomiting: adequately controlled Pain: adequately controlled Airway Patency, RR, SpO2: stable & adequate BP & HR: stable & adequate Hydration State: stable & adequate
[2018-12-01] MEDS: BUDESONIDE/FORMOTEROL FUMARATE 160/4.5 60 PUFFS/INHALER INH SCH ×2 (08:32→21:04)
[2018-12-01] MEDS: VORICONAZOLE 200 MG TABLET PO SCH ×2 (08:33→21:04)
[2018-12-01] MEDS: CHOLECALCIFEROL 1,000 UNITS TAB PO SCH (08:34)
[2018-12-01] MEDS: BuPROPion SR 150 MG TABCR PO SCH ×2 (08:35→21:04)
[2018-12-01] MEDS: guaiFENesin 600 MG TABCR PO SCH ×2 (08:52→21:04)
[2018-12-01] MEDS: ENOXAPARIN INJ 40 MG/0.4 ML SYR SQ SCH (08:54)
[2018-12-01] MEDS: INSULIN GLARGINE SOLOSTAR 100 UNITS/ML 3 ML PEN SC SCH (09:37)
[2018-12-01] MEDS: INSULIN ASPART 100 UNITS/ML 3 ML PEN SC SCH ×4 (09:38→20:39)
--- NOTE | 2018-12-01 09:55 | Hospitalist Progress Note ---
Date of Service December 01, 2018 Assessment & Plan (1) Non-small cell cancer of right lung: - S/P Wedge of RUL (11/19) and chest tube removed on 11/22 and did have small apical PTX initially -Patient seen by pulmonary and had new chest tube placed on 11/24, subsequently removed and CXR does not show any worsening - Suspected adenocarcinoma of lung but still awaiting pathology (2) Hypertension: component of anxiety/stress and pain factored into readings - If anti-hypertensives are decided upon would avoid BB therapy given her COPD (3) Acute respiratory failure with hypoxia: - This is multifactorial between underlying COPD with exacerbation and recent wedge due to suspected nonsmall cell lung CA - It is anticipated she will need ongoing supplemental O2 - recommend 2 step be completed prior to discharge to gauge amount of need (4) COPD exacerbation: - Reports she was treated with some steroids as an outpatient prior to admission; finished a course of IV steroids in house - She follows with Chago Isidro PA-C - [facility] Currently only on zosyn. - Recommend flutter valve to help move secretions taper steroids (5) CKD (chronic kidney disease) stage 3, GFR 30-59 ml/min: - Review of previous labs looks like she could have a CKD - Mild elevations in Cr but appears 1.3-1.4 is baseline and will monitor Creat is 1.19 (6) Hyperglycemia: secondary to steroids. fortino obtain A1C. Likely prediabetic Better controlled. off insulin drip. Potassium is in normal range (7) Crohns disease: - S/P ileostomy - On Stellara; no current flair and just recommend outpatient F/U with her GI Subjective Patient is weak she is concerned about having all of her support systems in place prior to being discharged. There is some discussion that discharge could be in the next 1-2 days. A 2 step oxygen test will be performed to see if the patient requires home oxygen she did not have this prior to coming to the hospital. She is no persistent shortness of breath or coughing over her baseline COPD Review of Systems ROS: well nourished well developed. No double vision blurry vision No problems with speech or swallowing No palpitations, tenderness or chest wall at her chest tube site No Wheezing does have dyspnea on exertion and nonproductive cough No abdominal pain nausea vomiting diarrhea changes in appetite or weight No burning urine urine frequency or changes in color No focal joint pain or muscle pain No skin rashes or oral lesions No unusual bruising or bleeding No focused back pain or numbness or loss of strength No changes in memory or confusion Physical Exam 2 Vital Signs (Past 24 Hours): Last Vital Signs Temp 36.7 C 12/01/18 07:47 Pulse 92 H 12/01/18 07:47 Resp 17 12/01/18 07:47 BP 158/90 H 12/01/18 07:47 Pulse Ox 98 12/01/18 07:47 The patient appeared well nourished and normally developed. Vital signs as documented. Head exam is unremarkable. normocephalic, atraumatic Neck is without jugular venous distension, thyromegaly, or lymphademopathy Lungs are clear to auscultation and percussion. No focal air loss no egophony Cardiac exam reveals Rhythm is regular. First and second heart sounds normal. Abdominal exam reveals normal bowel sounds, no masses, no organomegaly Extremities are nonedematous and both pedal pulses are present Neurologic exam is A&Ox3, no focal deficits, strength is equal bilateral Psychologically seems neither anxious or depressed
--- NOTE | 2018-12-01 11:42 | Progress Note ---
DATE: 12/01/2018 Yu was seen today. She has a pretty quiet night. She has not walked as much as I would like, although she states that she walked out in the patel 5 times yesterday. She is on 2 liters with a sat of 98% today. I thought her x-ray looked better to me today. I think her right middle lobe was expanded. She sounds better on exam. All of her incisions are clean. Her ostomy is working well. She is eating well. I discussed this case with Dr. Charles from pulmonary who feels that the patient has histiocytosis in her lymph nodes due to an exposure of an antigen. He will explain this more in his note. She is going to require steroids for an extended period of time. I would like to try to get her set up for discharge soon; however, she is very concerned about going home at this point.
--- NOTE | 2018-12-01 14:20 | Pharmacy Report ---
Pharmacy Glycemic Short Note 2 - Date of Service December 01, 2018 - Glycemic Short BSG Results (Last 24 hours): 11/30/18 11/30/18 12/01/18 16:56 20:09 06:10 Glucose 115 H POC Glucose 137 H 130 H 12/01/18 12/01/18 08:05 12:09 Glucose POC Glucose 86 102 H OUTPATIENT ANTIDIABETIC REGIMEN: * N/A * A1c = 6.5% on 11/27/18 * This is diagnostic for diabetes, however, patient was just on a medrol dose pack and receives multiple courses of predisone. 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 With patient transitioned from IV methylprednisolone to PO prednisone on 11/29/18, insulin requirements have expectedly decreased. She received 22 units total yesterday (compared to 46 units). * Given lower fasting BG this AM despite lower Lantus dose given yesterday, will decr' Lantus dose again. * Loosened Novolog scale from 11/29/18 continues to work well - BG remains at goal throughout the day and no hypoglycemia since, therefore will continue same. PLAN FOR INPATIENT GLYCEMIC CONTROL: * Basal insulin - decrease * Lantus 10 units daily * Bolus insulin - continue * NovoLog per scale ACHS or Q6hrs while NPO * Goal Range: Low 110 mg/dL - High 140 mg/dL * Correction Factor: 30 mg/dL/unit * Nutritional / Prandial insulin per carb ratio of 1 unit per 12 grams CHO consumed
--- NOTE | 2018-12-01 18:16 | Pulmonology Progress Note ---
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 2. 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 3. History of asthma started 5 months ago according to her. 4. 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 This could contribute to her inhaling fiber material versus organic dust that resulted in the development of histiocytosis. 5. 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 Plan: 1. Continue with voriconazole as well as steroids for a Of 1 year at very slow taper of the steroids. 2. Continue with Symbicort as well as bronchodilators. 3. The patient should be followed up closely even with pulmonology on a monthly basis. 4. As for the systemic steroids, it would be very difficult to determine the taper course, I would use higher dose than 20 mg every day. The patient should be on 40 mg for at least 2 weeks then 30 mg for 2 weeks then 20 mg ongoing until repeating serology with Aspergillus study. 5. Obtain IgE level. Thank you (2) Acute respiratory failure with hypoxia: Subjective The patient continues to have occasional wheezing, cough and shortness of breath , but she is improving slowly. Recovering from thoracotomy. No events overnight. Overall doing well. Physical Exam 2 Vital Signs (Past 24 Hours): Last Vital Signs Temp 36.8 C 12/01/18 16:01 Pulse 94 H 12/01/18 16:01 Resp 18 12/01/18 16:01 BP 153/88 H 12/01/18 16:01 Pulse Ox 97 12/01/18 16:01 Physical Exam: Vital signs are stable, no JVD, wheezing mainly in the upper lobes, no stridor, S1-S2 regular rate and rhythm, abdomen is benign, no edema. Neurologically she is intact, no rash, no oral thrush. Results & Data Laboratory Results Labs were reviewed personally including lung biopsy as well as multiple lymph node biopsy which showed histiocytosis. It showed also colloidal adenocarcinoma. Diagnostic Findings Chest x-ray without evidence of new infiltrate, the CAT scan of the chest showed hydropneumothorax that has been improving. Chest tube is out.
[2018-12-01] MEDS: MONTELUKAST SODIUM 10 MG TABLET PO SCH (21:04)
[2018-12-02] MEDS: OXYCODONE HCL IR 5 MG TAB (IMMEDIATE RELEASE) PO PRN ×6 (02:10→23:07)
[2018-12-02] MEDS: ALBUT/IPRATROP 3MG/0.5MG NEB 3 ML VIAL NEB SCH ×6 (03:09→23:05)
[2018-12-02] MEDS: ACETAMINOPHEN 325 MG TAB PO SCH ×4 (05:16→20:29)
[2018-12-02 07:40] LABS: Creatinine Clr Calc Pharmacy 54.7 ml/min; Est GFR (Non-African American) 52.7
--- NOTE | 2018-12-02 08:43 | Progress Note ---
DATE: 12/02/2018 The patient was seen today. She feels better. Her A-a gradient is improving. She is 98% on 2 liters. She has some mild end expiratory wheezing today. We have increased her steroids. Per Dr. Charles's recommendations, we have increased her prednisone from 20 to 40 mg b.i.d. She still had some pain, but she walked more yesterday. The patient is markedly dyspneic. She may have to go to rehab. We will get PT and OT to see her. She is improving very slowly, but definitely improving. She has multiple issues besides this. Besides the fact that she has compromised lung function and has had a lobectomy for lung cancer. She also suffers from histiocytosis and has a pulmonary insufficiency.
[2018-12-02] MEDS ORDERED: predniSONE 20 MG TAB PO SCH (09:00)
[2018-12-02] MEDS: DOCUSATE SODIUM 100 MG CAP PO SCH ×2 (09:37→20:31)
[2018-12-02] MEDS: DONEPEZIL HCL 10 MG TAB PO SCH (09:37)
[2018-12-02] MEDS: guaiFENesin 600 MG TABCR PO SCH ×2 (09:37→20:31)
[2018-12-02] MEDS: CHOLECALCIFEROL 1,000 UNITS TAB PO SCH (09:38)
[2018-12-02] MEDS: FLUOXETINE HCL 20 MG CAP PO SCH (09:38)
[2018-12-02] MEDS: predniSONE 20 MG TAB PO SCH ×2 (09:38→20:30)
[2018-12-02] MEDS: VORICONAZOLE 200 MG TABLET PO SCH ×2 (09:39→20:30)
[2018-12-02] MEDS: BuPROPion SR 150 MG TABCR PO SCH ×2 (09:39→20:30)
[2018-12-02] MEDS: ENOXAPARIN INJ 40 MG/0.4 ML SYR SQ SCH (09:40)
[2018-12-02] MEDS: BUDESONIDE/FORMOTEROL FUMARATE 160/4.5 60 PUFFS/INHALER INH SCH (09:40)
[2018-12-02] MEDS: INSULIN GLARGINE SOLOSTAR 100 UNITS/ML 3 ML PEN SC SCH (09:41)
[2018-12-02] MEDS: INSULIN ASPART 100 UNITS/ML 3 ML PEN SC SCH ×4 (09:43→20:58)
[2018-12-02] MEDS: CARBOHYDRATES FOR HYPOGLYCEMIA PO PRN (11:59)
--- NOTE | 2018-12-02 15:18 | Pharmacy Report ---
Pharmacy Glycemic Short Note 2 - Date of Service December 02, 2018 - Glycemic Short BSG Results (Last 24 hours): 12/01/18 12/01/18 12/02/18 17:12 20:34 08:06 POC Glucose 149 H 106 H 83 12/02/18 12/02/18 11:53 12:15 POC Glucose 65 L* 124 H OUTPATIENT ANTIDIABETIC REGIMEN: * N/A * A1c = 6.5% on 11/27/18 * This is diagnostic for diabetes, however, patient was just on a medrol dose pack and receives multiple courses of predisone. 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 Isidro received 22 units of insulin yesterday while on prednisone 20 mg BID. * 10 units of basal * 12 units of bolus * Prednisone dose was increased to 40 mg BID today. I am hesitant to increase insulin doses due to fasting BSG below goal and patient with hypoglycemia at lunchtime. BSG 65 mg/dL - repeat of 124 mg/dL after drinking juice. Patient's RN did report that patient was given carb coverage for yogurt this morning and she did not end up eating the yogurt. This may have contributed to hypoglycemia. PLAN FOR INPATIENT GLYCEMIC CONTROL: * Basal insulin * Lantus 10 units daily * Bolus insulin * NovoLog per scale ACHS or Q6hrs while NPO * Goal Range: Low 110 mg/dL - High 140 mg/dL * Correction Factor: 30 mg/dL/unit * Nutritional / Prandial insulin per carb ratio of 1 unit per 12 grams CHO consumed PLAN FOR DISCHARGE: * A1c of 6.5% - most likely elevated due to recent outpatient steroid courses * If patient is discharged without steroids: * recommend lifestyle changes and f/u with PCP * If patient is discharged on steroid taper: * Recommend once daily NPH (taper dose as steroid dose tapers) * For prednisone 40 mg: NPH 22 units SQ with breakfast * For prednisone 30 mg: NPH 16 units SQ with breakfast * For prednisone 20 mg: NPH 11 units SQ with breakfast * For prednisone 10 mg: NPH 6 units SQ with breakfast
--- NOTE | 2018-12-02 17:24 | Hospitalist Progress Note ---
Date of Service December 02, 2018 Assessment & Plan (1) Non-small cell cancer of right lung: - S/P Wedge of RUL (11/19) and chest tube removed on 11/22 and did have small apical PTX initially -Patient seen by pulmonary and had new chest tube placed on 11/24, subsequently removed and CXR 12/01 does not show any worsening, patient feels more respiratory efforts required on 12/02 we will add Brovana nebulizers back primary service increase her steroids to 40 every 12 repeat x-ray likely on the - Suspected non-small cell adenocarcinoma of lung (2) Hypertension: component of anxiety/stress and pain factored into readings Blood pressures been much better control (3) Acute respiratory failure with hypoxia: - This is multifactorial between underlying COPD with exacerbation and recent wedge due to suspected nonsmall cell lung CA plus mechanical issues regarding chest wall pain and recent hemopneumothorax - It is anticipated she will need ongoing supplemental O2 - (4) COPD exacerbation: - Reports she was treated with some steroids as an outpatient prior to admission; finished a course of IV steroids patient is returned to 40 twice daily of prednisone -flutter valve to help move secretions taper steroids as able (5) CKD (chronic kidney disease) stage 3, GFR 30-59 ml/min: - Review of previous labs looks like she could have a CKD - Mild elevations in Cr but appears 1.3-1.4 is baseline and will monitor Creat is 1.19 (6) Hyperglycemia: secondary to steroids. Likely prediabetic will likely need sliding scale insulin when at rehab hospital to have improved glucose control as we taper her steroids (7) Crohns disease: - S/P ileostomy - On Stellara; no current flair and just recommend outpatient F/U with her GI Subjective Patient states she feels more short of breath difficulty walking around today her primary service increased her prednisone therapy. We did alter some of her inhaled medications to try to have some better effect on her breathing. Chest x -ray was performed on the hopefully will repeat one the Review of Systems ROS: Patient feels weak and tired is difficulty breathing today No double vision blurry vision No problems with speech or swallowing No palpitations, chest pain or pressure Feels short of breath at rest and dyspnea on exertion feels a pressure in her chest No abdominal pain nausea vomiting diarrhea changes in appetite or weight No burning urine urine frequency or changes in color No focal joint pain or muscle pain No skin rashes or oral lesions No unusual bruising or bleeding No focused back pain or numbness or loss of strength No changes in memory or confusion Physical Exam 2 Vital Signs (Past 24 Hours): Last Vital Signs Temp 36.8 C 12/02/18 15:16 Pulse 81 12/02/18 15:32 Resp 16 12/02/18 15:32 BP 132/84 12/02/18 15:16 Pulse Ox 95 12/02/18 15:32 The patient appeared fatigued mildly respiratory distress at rest Vital signs as documented. Head exam is unremarkable. normocephalic, atraumatic Neck is without jugular venous distension, thyromegaly, or lymphademopathy Lungs are decreased breath sounds with some splinting no wheezes or focal air loss Cardiac exam reveals Rhythm is regular. First and second heart sounds normal. Abdominal exam reveals normal bowel sounds, no masses, no organomegaly Extremities are nonedematous and both pedal pulses are present Neurologic exam is A&Ox3, no focal deficits, strength is equal bilateral Psychologically seems depressed Skin is warm Dry without bruises or lesions
[2018-12-02] MEDS: ARFORMOTEROL TART 15MCG/2ML VIAL INH SCH (20:15)
[2018-12-02] MEDS: MONTELUKAST SODIUM 10 MG TABLET PO SCH (20:29)
[2018-12-03] MEDS: OXYCODONE HCL IR 5 MG TAB (IMMEDIATE RELEASE) PO PRN ×7 (01:58→22:07)
[2018-12-03] MEDS: ACETAMINOPHEN 325 MG TAB PO SCH ×4 (05:35→20:57)
[2018-12-03] MEDS: ARFORMOTEROL TART 15MCG/2ML VIAL INH SCH ×3 (07:24→23:33)
[2018-12-03] MEDS: ALBUT/IPRATROP 3MG/0.5MG NEB 3 ML VIAL NEB SCH ×4 (07:26→18:34)
[2018-12-03] MEDS: predniSONE 20 MG TAB PO SCH ×2 (08:51→20:58)
[2018-12-03] MEDS: guaiFENesin 600 MG TABCR PO SCH ×2 (08:51→20:58)
[2018-12-03] MEDS: VORICONAZOLE 200 MG TABLET PO SCH ×2 (08:51→20:56)
[2018-12-03] MEDS: FLUOXETINE HCL 20 MG CAP PO SCH (08:52)
[2018-12-03] MEDS: DOCUSATE SODIUM 100 MG CAP PO SCH ×2 (08:52→20:57)
[2018-12-03] MEDS: CHOLECALCIFEROL 1,000 UNITS TAB PO SCH (08:52)
[2018-12-03] MEDS: DONEPEZIL HCL 10 MG TAB PO SCH (08:52)
[2018-12-03] MEDS: BuPROPion SR 150 MG TABCR PO SCH ×2 (08:52→20:57)
[2018-12-03] MEDS: ENOXAPARIN INJ 40 MG/0.4 ML SYR SQ SCH (08:53)
[2018-12-03] MEDS: INSULIN ASPART 100 UNITS/ML 3 ML PEN SC SCH ×4 (08:56→21:47)
[2018-12-03] MEDS: INSULIN GLARGINE SOLOSTAR 100 UNITS/ML 3 ML PEN SC SCH (08:57)
--- NOTE | 2018-12-03 10:53 | Progress Note ---
DATE: 12/03/2018 Yu Isidro remains on 0.5 L O2. She is very weak and has difficulty ambulating in the hallway and is extremely apprehensive about going home. She does not qualify for rehab as she is too good. Her incisions are clean. She is still complaining of pain requiring narcotics. We will see how she does over the next day or two and then hopefully get her home. I think she looks good. We are going to check a chest x-ray on her in the morning.
--- NOTE | 2018-12-03 16:14 | Hospitalist Progress Note ---
Date of Service December 03, 2018 Assessment & Plan (1) Non-small cell cancer of right lung: - S/P Wedge of RUL (11/19) and chest tube removed on 11/22 and did have small apical PTX initially -Patient seen by pulmonary and had new chest tube placed on 11/24, subsequently removed and CXR 12/01 does not show any worsening, patient feels more respiratory efforts required on 12/02 we will add Brovana nebulizers back primary service increase her steroids to 40 every 12 addition of Brovana has improved her symptoms on 12/03 - Suspected non-small cell adenocarcinoma of lung (2) Hypertension: Blood pressure is in better control (3) Acute respiratory failure with hypoxia: - This is multifactorial between underlying COPD with exacerbation and recent wedge due to suspected nonsmall cell lung CA plus mechanical issues regarding chest wall pain and recent hemopneumothorax - It is anticipated she will need ongoing supplemental O2 -towards the end of the week (4) COPD exacerbation: - Reports she was treated with some steroids as an outpatient prior to admission; finished a course of IV steroids patient is returned to 40 twice daily of prednisone this has worsened glucose control -flutter valve to help move secretions taper steroids as able (5) CKD (chronic kidney disease) stage 3, GFR 30-59 ml/min: - Review of previous labs looks like she could have a CKD - Mild elevations in Cr but appears 1.3-1.4 is baseline and will monitor Creat is 1.19 (6) Hyperglycemia: secondary to steroids. Likely prediabetic she did meet with the diabetic nurse educator on 12/03 she will be on NPH injections from a vial because she is on her steroid tapering at home (7) Crohns disease: - S/P ileostomy - On Stellara; no current flair and just recommend outpatient F/U with her GI Subjective Feels somewhat better today with the addition of Brovana. She is considering going home instead of rehab we did have her meet with clinical trial educator she will be on NPH insulin by violent needle injection to cover her diabetes has been encouraged by her steroid use Review of Systems ROS: well nourished well developed. No double vision blurry vision No problems with speech or swallowing No palpitations, chest pain or pressure remains short of breath with exertion No abdominal pain nausea vomiting diarrhea changes in appetite or weight No burning urine urine frequency or changes in color No focal joint pain or muscle pain No skin rashes or oral lesions No unusual bruising or bleeding No focused back pain or numbness or loss of strength No changes in memory or confusion Physical Exam 2 Vital Signs (Past 24 Hours): Last Vital Signs Temp 36.8 C 12/03/18 15:12 Pulse 91 H 12/03/18 15:36 Resp 18 12/03/18 15:36 BP 127/85 12/03/18 15:12 Pulse Ox 96 12/03/18 15:36 ROS: The patient appeared well nourished and normally developed. Vital signs as documented. Head exam is unremarkable. normocephalic, atraumatic Neck is without jugular venous distension, thyromegaly, or lymphademopathy Lungs are clear to auscultation no wheezes or rubs heard Cardiac exam reveals Rhythm is regular. First and second heart sounds normal. Abdominal exam reveals normal bowel sounds, no masses, no organomegaly Extremities are nonedematous and both pedal pulses are present Neurologic exam is A&Ox3, no focal deficits, strength is equal bilateral but she remains weak Psychologically seems neither anxious or depressed Skin is warm Dry without bruises or lesions
--- NOTE | 2018-12-03 16:38 | Pharmacy Report ---
Pharmacy Glycemic Short Note 2 - Date of Service December 03, 2018 - Glycemic Short BSG Results (Last 24 hours): 12/02/18 12/02/18 12/03/18 16:47 20:47 08:17 POC Glucose 160 H 115 H 119 H 12/03/18 12:01 POC Glucose 88 OUTPATIENT ANTIDIABETIC REGIMEN: * N/A * A1c = 6.5% on 11/27/18 * This is diagnostic for diabetes, however, patient was just on a medrol dose pack and receives multiple courses of predisone. 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 Isidro received 21 units of insulin yesterday while on prednisone 20 mg BID. * 10 units of basal * 11 units of bolus * Prednisone dose remains at 40 mg BID. * Despite loosening Novolog coverage yesterday, BSGs remain below goal. I will further loosen today and change Lantus to NPH to better cover steroid peak effect. Patient does not appear to require 24 hour basal insulin. Will consider discontinuation of carb ratio in near future. PLAN FOR INPATIENT GLYCEMIC CONTROL: * Basal insulin * Lantus 10 units daily * Change to NPH 12 units qAM on 12/04 * Bolus insulin - loosen carb ratio * NovoLog per scale ACHS or Q6hrs while NPO * Goal Range: Low 110 mg/dL - High 140 mg/dL * Correction Factor: 30 mg/dL/unit * Nutritional / Prandial insulin per carb ratio of 1 unit per 20 grams CHO consumed PLAN FOR DISCHARGE: * A1c of 6.5% - most likely elevated due to recent outpatient steroid courses * If patient is discharged without steroids: * recommend lifestyle changes and f/u with PCP * If patient is discharged on steroid taper: * Recommend once daily NPH (taper dose as steroid dose tapers) * For prednisone 40 mg: NPH 20 units SQ with breakfast * For prednisone 30 mg: NPH 15 units SQ with breakfast * For prednisone 20 mg: NPH 10 units SQ with breakfast * For prednisone 10 mg: NPH 5 units SQ with breakfast
[2018-12-03] MEDS: MONTELUKAST SODIUM 10 MG TABLET PO SCH (20:56)
[2018-12-04] MEDS: OXYCODONE HCL IR 5 MG TAB (IMMEDIATE RELEASE) PO PRN ×6 (02:50→21:00)
[2018-12-04] MEDS: ACETAMINOPHEN 325 MG TAB PO SCH ×4 (05:48→21:03)
[2018-12-04 06:49] LABS: Hematocrit (blood only) 33.4 % (37-47); Hemoglobin 10.4 g/dL (12.0-16.0); Mean Corpuscular Hgb Conc 31.1 g/dL (32-36); Mean Corpuscular Volume 85.2 fL (80-100); Mean Platelet Volume 9.2 fL (7.4-10.4); Platelet Count 478 K/uL (130-400); RDW Coefficient of Variation 15.5 % (11.5-14.5); Red Blood Count 3.92 M/uL (4.2-5.4); White Blood Count 15.33 K/uL (4.8-10.8)
--- NOTE | 2018-12-04 07:13 | XRay Report ---
SINGLE VIEW CHEST CLINICAL HISTORY: Hypoxia. FINDINGS: An AP, portable, upright chest radiograph is compared to study dated 12/01/2018 and correlat ed with chest CT dated 11/27/2018. The examination is degraded by portable technique and patient rotat ion. The cardiomediastinal silhouette is unremarkable. Emphysema and chronic interstitial thickening are similar to previous. There is volume loss in the right lung and postoperative change consistent with right upper lobe resection. Right perihilar and right basilar opacities are unchanged from previ ous.Small right hydropneumothorax is also unchanged. The skeletal structures are osteopenic. The bony thorax is grossly intact. Subcutaneous emphysema is noted along the right chest wall. IMPRESSION: 1. Emphysema and postoperative change from right upper lobe resection. 2. Right perihilar and right basilar opacities are unchanged. 3. A small residual right hydropneumothorax persists. Electronically signed by: Pelon Carcamo M.D. 12/04/2018 7:12 AM
[2018-12-04] MEDS: ARFORMOTEROL TART 15MCG/2ML VIAL INH SCH ×2 (07:26→20:20)
[2018-12-04] MEDS: ALBUT/IPRATROP 3MG/0.5MG NEB 3 ML VIAL NEB SCH ×4 (07:26→20:06)
[2018-12-04] MEDS: FLUOXETINE HCL 20 MG CAP PO SCH (09:01)
[2018-12-04] MEDS: guaiFENesin 600 MG TABCR PO SCH ×2 (09:01→21:02)
[2018-12-04] MEDS: predniSONE 20 MG TAB PO SCH ×2 (09:01→21:02)
[2018-12-04] MEDS: VORICONAZOLE 200 MG TABLET PO SCH ×2 (09:02→21:03)
[2018-12-04] MEDS: DONEPEZIL HCL 10 MG TAB PO SCH (09:02)
[2018-12-04] MEDS: CHOLECALCIFEROL 1,000 UNITS TAB PO SCH (09:02)
[2018-12-04] MEDS: BuPROPion SR 150 MG TABCR PO SCH ×2 (09:02→21:02)
[2018-12-04] MEDS: DOCUSATE SODIUM 100 MG CAP PO SCH ×2 (09:02→21:02)
[2018-12-04] MEDS: ENOXAPARIN INJ 40 MG/0.4 ML SYR SQ SCH (09:04)
[2018-12-04] MEDS: INSULIN ASPART 100 UNITS/ML 3 ML PEN SC SCH ×4 (09:04→21:03)
[2018-12-04] MEDS: INSULIN HUMAN NPH SC SCH (09:05)
--- NOTE | 2018-12-04 12:37 | Progress Note ---
DATE: 12/04/2018 Ms. Isidro is down to room air now. She is quite anxious, however. She developed "difficulty breathing" last night and felt like she was going to "". Her saturations apparently did not drop. She is 95% saturation on room air today and has been walking quite a bit. Overall, I have been quite pleased with her. I am also quite pleased with her x-ray and she sounds quite good on exam. All of her incisions are clean. She is still complaining quite a bit of pain. I think she is getting ready for discharge. She is still quite anxious about going home with her breathing, but I think she is definitely better. She does not qualify for any type of rehab. At any rate, we will get her ready for discharge in the next day or two and see her back in the office in 2 weeks. LIONEL
--- NOTE | 2018-12-04 14:11 | Pharmacy Report ---
Pharmacy Glycemic Short Note 2 - Date of Service December 04, 2018 - Glycemic Short BSG Results (Last 24 hours): 12/03/18 12/03/18 12/04/18 16:58 20:52 08:04 POC Glucose 155 H 139 H 117 H 12/04/18 11:59 POC Glucose 118 H OUTPATIENT ANTIDIABETIC REGIMEN: * N/A * A1c = 6.5% on 11/27/18 * This is diagnostic for diabetes, however, patient was just on a medrol dose pack and receives multiple courses of predisone. 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 Isidro has been consistently receiving ~20 units of insulin per day, with reasonably well-controlled BSGs. * Prednisone dose remains 40mg PO BID. * Anticipate upcoming discharge to home. * Patient was switched to NPH today, in anticipation of possible taper to once- daily prednisone. PLAN FOR INPATIENT GLYCEMIC CONTROL: * Basal insulin * NPH 12 units qAM on 12/04 * Bolus insulin - * NovoLog per scale ACHS or Q6hrs while NPO * Goal Range: Low 110 mg/dL - High 140 mg/dL * Correction Factor: 30 mg/dL/unit * Nutritional / Prandial insulin per carb ratio of 1 unit per 20 grams CHO consumed PLAN FOR DISCHARGE: * A1c of 6.5% - most likely elevated due to recent outpatient steroid courses * If patient is discharged on steroid taper: * Once daily prednisone: -- recommend Basaglar 20 units SQ qAM -- reduce daily dose as prednisone dose decreases -- Basaglar is covered by pt's insurance (per CDE) and is easily administered w/ insulin pen. * Twice daily prednisone: -- recommend NPH 10 units SQ BID with breakfast and supper ( prednisone should be taken on same schedule) -- reduce daily dose as prednisone dose decreases -- NPH is also covered, and patient has practiced administration of insulin with vial/syringe. * If patient is not discharged on any steroids: * Expect that patient may adequately improve A1c with diet/lifestyle modifications. * May consider adding monotherapy with an oral agent. -- would avoid Metformin d/t hx of Crohns disease -- Consider adding glyburide. * Recommend close f/u with PCP after discharge to monitor/adjust glycemic plan as steroid use changes.
--- NOTE | 2018-12-04 19:10 | Hospitalist Progress Note ---
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 Patient feels some of her symptoms of shortness of breath are related to anxiety and having difficulty sleeping will add trazodone at night to try to augment her sleeping (2) Hypertension: Blood pressure is in better control (3) Acute respiratory failure with hypoxia: - This is multifactorial between underlying COPD with exacerbation and recent wedge due to suspected nonsmall cell lung CA plus mechanical issues regarding chest wall pain and recent hemopneumothorax - It is anticipated she will need ongoing supplemental O2 however she is been weaned off after additional provider will perform 2 step prior to discharge (4) COPD exacerbation: - Reports she was treated with some steroids as an outpatient prior to admission; finished a course of IV steroids patient is returned to 40 twice daily of prednisone this has worsened glucose control -flutter valve to help move secretions taper steroids as able (5) CKD (chronic kidney disease) stage 3, GFR 30-59 ml/min: - Review of previous labs looks like she could have a CKD - Mild elevations in Cr but appears 1.3-1.4 is baseline and will monitor (6) Hyperglycemia: secondary to steroids. Likely prediabetic she did meet with the diabetic nurse educator on 12/03 she will be on NPH injections from a vial because she is on her steroid tapering at home patient is demonstrated ability to use NPH insulin while in the hospital (7) Crohns disease: - S/P ileostomy - On Stellara; no current flair and just recommend outpatient F/U with her GI Subjective Patient is having challenges with having anxiety at night we will give her scheduled trazodone. She is improved in all other ways and her chest x-ray reviewed today shows no evidence of progression or worsening of any of her intrathoracic issues Review of Systems ROS: well nourished well developed. No double vision blurry vision No problems with speech or swallowing No palpitations, chest pain or pressure Patient complains of feeling difficulty getting air out of her chest she also has marked anxiety about her breathing No abdominal pain nausea vomiting diarrhea changes in appetite or weight No burning urine urine frequency or changes in color No focal joint pain or muscle pain No skin rashes or oral lesions No unusual bruising or bleeding No focused back pain or numbness or loss of strength No changes in memory or confusion Physical Exam 2 Vital Signs (Past 24 Hours): Last Vital Signs Temp 36.8 C 12/04/18 15:17 Pulse 91 H 12/04/18 16:10 Resp 20 12/04/18 16:10 BP 159/92 H 12/04/18 15:17 Pulse Ox 94 12/04/18 16:10 The patient appeared anxious Vital signs as documented. Head exam is unremarkable. normocephalic, atraumatic Neck is without jugular venous distension, thyromegaly, or lymphademopathy Lungs are clear to auscultation with good air movement and no wheezes Cardiac exam reveals Rhythm is regular. First and second heart sounds normal. Abdominal exam reveals normal bowel sounds, no masses, no organomegaly Extremities are nonedematous and both pedal pulses are present Neurologic exam is A&Ox3, no focal deficits, strength is equal bilateral Psychologically seems anxious Skin is warm Dry without bruises or lesions
[2018-12-04] MEDS ORDERED: TRAZODONE HCL 50 MG TAB PO SCH ×2 (21:00)
[2018-12-04] MEDS: MONTELUKAST SODIUM 10 MG TABLET PO SCH (21:03)
[2018-12-05] MEDS: OXYCODONE HCL IR 5 MG TAB (IMMEDIATE RELEASE) PO PRN ×5 (00:29→15:31)
[2018-12-05] MEDS: ACETAMINOPHEN 325 MG TAB PO SCH ×3 (04:01→15:30)
[2018-12-05] MEDS: ARFORMOTEROL TART 15MCG/2ML VIAL INH SCH (07:41)
[2018-12-05] MEDS: ALBUT/IPRATROP 3MG/0.5MG NEB 3 ML VIAL NEB SCH ×3 (07:42→16:32)
[2018-12-05] MEDS: DOCUSATE SODIUM 100 MG CAP PO SCH (08:55)
[2018-12-05] MEDS: DONEPEZIL HCL 10 MG TAB PO SCH (08:55)
[2018-12-05] MEDS: ENOXAPARIN INJ 40 MG/0.4 ML SYR SQ SCH (08:57)
[2018-12-05] MEDS: guaiFENesin 600 MG TABCR PO SCH (09:00)
[2018-12-05] MEDS: predniSONE 20 MG TAB PO SCH (09:01)
[2018-12-05] MEDS: FLUOXETINE HCL 20 MG CAP PO SCH (09:03)
[2018-12-05] MEDS: VORICONAZOLE 200 MG TABLET PO SCH (09:03)
[2018-12-05] MEDS: CHOLECALCIFEROL 1,000 UNITS TAB PO SCH (09:04)
[2018-12-05] MEDS: BuPROPion SR 150 MG TABCR PO SCH (09:05)
[2018-12-05] MEDS: INSULIN ASPART 100 UNITS/ML 3 ML PEN SC SCH ×2 (09:32→13:58)
[2018-12-05] MEDS: INSULIN HUMAN NPH SC SCH (09:35)
--- NOTE | 2018-12-05 10:25 | Discharge Summary ---
ADMISSION DIAGNOSIS: Cavitary lesion of the right upper lobe. DISCHARGE DIAGNOSES: 1. Nonsmall cell lung carcinoma of her right upper lobe. 2. 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 3. Hypoxia. 4. Acute lung injury. 5. Right middle lobe atelectasis. 6. Langerhans histiocytosis. 7. Asthma. HOSPITAL COURSE: This patient is a 48-year-old female who was seen and evaluated at Dr. Jeter as an outpatient due to a right lung mass in her right upper lobe. Due to the appearance of the mass on her imaging, Dr. Jeter felt surgical intervention was required. The patient was admitted to [facility] on 11/19/2018. On this date Dr. Jeter performed a robotic assisted right video-assisted thoracoscopy with a wedge resection of right upper lobe mass and subsequently a right upper lobectomy and mediastinal lymphadenectomy. It should be noted that one of the frozen sections of the lung mass intraoperatively did reveal nonsmall cell lung cancer and for this reason, Dr. Jeter did proceed with a right upper lobectomy. The patient did have a complicated postoperative course. She suffered from acute lung injury as well as ongoing hypoxia and right middle lobe atelectasis. The patient was seen by pulmonary medicine and the patient was started on aggressive nebulizer therapy along with Mucinex. Pulmonary toilet was encouraged. The patient was also started on intravenous steroids. Despite these interventions the patient did fail to show significant improvement and Dr. Jeter ultimately took the patient back to the operating room on 11/28/2018 at which time he did perform a flexible bronchoscopy. During this procedure, the patient was found to have a large amount of clot occluding right middle lobe bronchus and he did a lavage this and suctioned this out of the right middle lobe with resulting improvement of the patient's pulmonary status. It is also noteworthy to mention that prior to the bronchoscopy being performed, patient did have her previous chest tubes removed in the appropriate fashion. The patient suffered from an apical pneumothorax in the right side and the patient did require insertion of an anterior chest tube and this was performed on 11/24/2018 and this was managed in the appropriate fashion and ultimately discontinued. It should be noted that during patient's postoperative course, she was suffering from hyperglycemia and this was felt to be due to a combination of diabetes as well as ongoing steroid use [facility] and patient was started on appropriate insulin regimen. She was seen by community health educator and did demonstrate competency in monitoring her blood sugars as well as self-injecting herself with appropriate doses of insulin. After patient's aforementioned bronchoscopy, she did continue to ambulate and aggressive pulmonary toilet was employed in her care. Her hypoxia did improve. The patient was continued to be followed by pulmonary medicine and was actually seen by Dr. Charles while in the hospital and he felt the patient was noted to have Langerhans histiocytosis. Due to this problem, he felt that the patient needed ongoing steroid therapy and recommended a course of steroids was made, which will be dictated in a medicine list noted below. Also, due to patient's diagnosis of Aspergillus, it was recommended the patient be maintained on Voriconazole, which she was started on postoperatively. As patient showed ongoing improvement, she was ultimately felt stable and medically ready for discharge on 12/05/2018. Prior to discharge, I did discuss the case with [facility] hospitalist who provided the patient with prescriptions for her diabetic supplies as well as insulin. I also discussed with case management and they have arranged for patient to have home oxygen as a 2-step exercise did reveal the patient required 2 liters of oxygen with activity. MEDICATIONS AT TIME OF DISCHARGE: Include the following: New medicines include: 1. Tylenol 650 mg every 6 hours. 2. Mucinex 600 mg every 12 hours for 7 days. 3. NPH insulin 12 units in the morning. 4. Oxycodone 5 mg every 4 hours as needed for pain. 5. Prednisone. The patient will take 40 mg twice daily for 2 weeks, then she will decrease this to 30 mg twice daily for 2 weeks, then she will take 20 mg twice daily ongoing unless directed otherwise by her pulmonary team. 6. Trazodone 50 mg in the evening. 7. Voriconazole 200 mg twice daily. CONTINUED MEDICATIONS FROM HOME: Include: 1. Albuterol nebulizer. 2. Albuterol inhaler every 6 hours as needed. 3. Wellbutrin 150 mg twice daily. 4. Vitamin D3 6000 units daily. 5. Aricept 10 mg daily. 6. Prozac 20 mg 3 times daily. 7. Singulair 10 mg daily. 8. Protonix 40 mg daily. 9. Anoro Ellipta inhaler daily. 10. Vitamin B12 injections. The patient was previously taking trazodone 150 mg in the evening, but her dose has been adjusted to 50 mg in the evening as noted above and she was also taking Stelara and she was told to hold this until directed to resume this by her outpatient physicians. It should be noted that the patient's prescription history was reviewed and she did have 3 prescriptions for Ultram recently. I did questioned her on this and she says that she was taking this as directed by her family physician for back pain, but she did not have any of these at home. I did instruct her that she should not resume Ultram as she was given a prescription for Oxycodone 5 mg every 4 hours as needed for a 3-day supply of this. Did instruct her that we would try to wean her off any narcotic pain medications. FOLLOWUP: The patient does have a followup with her pulmonary team, Chago Isidro to at the [facility] on Saturday12/08/2018 at 9:00 a.m. She also has an appointment with her family physician, Dr. Allen on 12/08/2018 at 12:45 p.m. I did instruct her that Chago Isidro will further direct her on adjustments of her oxygen, prednisone, and Voriconazole as well as any of her inhalers. Family physician, Dr. Allen will handle any adjustment of her diabetic medications. She will follow up with Dr. Jeter in approximately 1-2 weeks from time of discharge and was instructed to get a chest x-ray 1 hour before appointment and our office will call her to verify date and time of this appointment. The patient was told that she could shower and clean her incision with soap and water. No further dressings will be needed. However, she was told not to take any tub baths. She was told that she did walk daily and there are no lifting restrictions. The patient was given both written and verbal instructions. She expressed her understanding and all of her questions answered. She was provided with office phone number should she have any questions upon discharge home. LIONEL
== END 2018-12-05 17:19 | disposition home health service (06) | DRG 163 ==
LOC: ASU 09:43 → 3N 16:29
DX: B44.1 Other pulmonary aspergillosis; E87.6 Hypokalemia; Z80.3 Family history of malignant neoplasm of breast; T38.0X5A Adverse effect of glucocorticoids and synthetic analogues, initial encounter; K21.9 Gastro-esophageal reflux disease without esophagitis; E16.2 Hypoglycemia, unspecified; J96.01 Acute respiratory failure with hypoxia; I12.9 Hypertensive chronic kidney disease with stage 1 through stage 4 chronic kidney disease, or unspecified chronic kidney disease; C34.11 Malignant neoplasm of upper lobe, right bronchus or lung; Z87.891 Personal history of nicotine dependence; Z68.34 Body mass index [BMI] 34.0-34.9, adult; J95.811 Postprocedural pneumothorax; G30.0 Alzheimer's disease with early onset; E66.01 Morbid (severe) obesity due to excess calories; Z79.899 Other long term (current) drug therapy; F02.80 Dementia in other diseases classified elsewhere, unspecified severity, without behavioral disturbance, psychotic disturbance, mood disturbance, and anxiety; Z93.2 Ileostomy status; N18.3 Chronic kidney disease, stage 3 (moderate); C96.6 Unifocal Langerhans-cell histiocytosis; F32.9 Major depressive disorder, single episode, unspecified; J98.09 Other diseases of bronchus, not elsewhere classified; R73.9 Hyperglycemia, unspecified; G47.33 Obstructive sleep apnea (adult) (pediatric); K50.90 Crohn's disease, unspecified, without complications; J44.1 Chronic obstructive pulmonary disease with (acute) exacerbation

== ENCOUNTER 2020-01-07 14:41 | Inpatient (IN) ==
[2020-01-07] MEDS ORDERED: methylPREDNISolone 125 MG/2 ML VIAL IV STA (15:17)
[2020-01-07] MEDS ORDERED: SODIUM CHLORIDE 0.9% 500 ML IV SCH (15:30)
--- NOTE | 2020-01-07 15:34 | Emergency Department Note ---
Impression & Plan Acute exacerbation of chronic obstructive airways disease, Pneumonitis, Leukocytosis Allergies Allergies Allergy/AdvReac Type Severity Reaction Status Date / Time No Known Allergies Allergy Verified 01/07/20 16:26 Home Meds Home Medications Medication Instructions Recorded Confirmed cholecalciferol (vitamin D3) 25 6,000 units PO DAILY cap 07/15/18 01/07/20 mcg (1,000 unit) capsule donepezil 10 mg tablet 10 mg PO QAM 07/15/18 01/07/20 montelukast 10 mg tablet 10 mg PO QAM 07/15/18 01/07/20 albuterol sulfate 1 - 2 puff INHALATION Q6H PRN 10/20/18 01/07/20 atorvastatin 40 mg tablet 40 mg PO DAILY 05/26/19 01/07/20 ferrous sulfate 325 mg (65 mg 325 mg PO DAILY tab 05/26/19 01/07/20 iron) tablet prednisone 10 mg tablet 5 mg PO HS tab 05/26/19 01/07/20 memantine 10 mg tablet 10 mg PO BID tab 08/03/19 01/07/20 codeine-guaifenesin 5 ml PO Q6H PRN 01/07/20 01/07/20 cyanocobalamin (vitamin B-12) 1,000 mcg IM MONTHLY 01/07/20 01/07/20 metformin 1,000 mg PO QAM 01/07/20 01/07/20 metformin 500 mg PO .AFTERNOON 01/07/20 01/07/20 pantoprazole 40 mg PO QAM 01/07/20 01/07/20 ustekinumab [Stelara] 90 mg SUBCUT .Q3 MONTHS 01/07/20 01/07/20 venlafaxine 150 mg PO QAM 01/07/20 01/07/20 Previous Rx's Medication Instructions Recorded amoxicillin 875 mg-potassium 1 tab PO Q12H #20 tab 12/29/19 clavulanate 125 mg tablet fluconazole 100 mg tablet 100 mg PO DAILY #10 tab 12/30/19 azithromycin 250 mg tablet See Rx Instructions PO .COMPLEX #6 01/04/20 tab prednisone 10 mg tablet See Rx Instructions PO DAILY #36 01/04/20 tab sodium chloride 7 % for 4 ml INH BID #240 ml 01/04/20 nebulization ED Provider Note NAME: RUPAL STACK AGE: 49 SEX: F ARRIVES VIA: Walk-In INFORMANT: [Patient] ED PROVIDER(S): Jose Vinson MD CHIEF COMPLAINT: Shortness of breath PLAN: Disposition: Admitted Condition: [Good] MEDICAL DECISION MAKING: The patient was referred from pulmonology due to failed outpatient management. She has a history of COPD. The patient was on outpatient antibiotics. A work- up was initiated here. She has a leukocytosis but no hypoxia. Patient's other chemistry panel unremarkable. The patient had a chest CT performed and shows a pneumonitis. No PE or significant pneumonia. Flu testing negative. She was given Solu-Medrol, cefepime, and a DuoNeb. Consultation was made with the [facility] service for inpatient management. Triage Nursing notes reviewed and agree them. [Prior medical records reviewed] outpatient visit note from pulmonology raise concerns about right lower lobe pneumonia. Vital Signs: reviewed and remarkable for [no significant abnormalities] Differential diagnosis: Reactive airway disease, pneumonia, pneumothorax, COPD, CHF, infections, cardiac ischemia, pulmonary embolism, musculoskeletal, gastrointestinal, as well as other pathologies. ER treatment provided: IV Solu-Medrol DuoNeb IV Solu-Medrol Diagnostics interpreted by me: ECG: Rate:108 Rhythm: Sinus tachycardia [place]:Normal QRS:Normal ST segements:No elevation or depression Other:No PACs or PVCs Cardiac Monitoring: Cardiac monitoring ordered by me: The patient was placed on continuous cardiac monitoring and observed. It revealed a normal sinus rhythm at 102 beats per minute without ectopy or evidence of dysrhythmia. Laboratory studies: [See below] moderate leukocytosis on CBC. Chemistry panel unremarkable. Flu t esting negative. Imaging studies: X-ray unremarkable. CT imaging of the chest reveals a pneumonitis. No PE. Consultation(s): Case discussed with the not any hospitalist team. Cecy Guerrero. The patient will be admitted under the care of Dr. Austin. HPI: The patient is a 49 year old female who presents to the Emergency Room with complaints of shortness of breath. This started several weeks ago and is worsening. The patient also notes the following associated symptoms, cough and congestion. The patient has tried multiple rounds of antibiotics and steroids for relieving factors. Current pain is rated as 0/10. The patient states that she has been followed by her pulmonology clinic. She has COPD. She was pres cribed Zithromax and prednisone. She was also on Levaquin. A chest x-ray that was performed and noted in the EMR 3 days ago was concerning for persisting right lower lobe pneumonia. She was started on Augmentin. There was some question about possible aspiration although the patient denies any obvious aspiration risk. Pt denies LOC, headache, fevers, chills, diaphoresis, visual changes, neck pain, chest pain, breathing difficulties, nausea, vomiting, abdominal pain, back pain, melena, hematochezia, urinary symptoms, numbness, weakness, lymphadenopathy, rash, or other complaints. ROS: See above HPI for pertinent positives & negatives. A total of [10] systems reviewed and were otherwise negative. PAST MEDICAL HISTORY:[See Below] COPD lung cancer PAST SURGICAL HISTORY:[See Below]partial resection of the right lung FAMILY HISTORY:[See Below] SOCIAL HISTORY:[See Below] former smoker HOME MEDICATIONS:[See above] ALLERGIES:[See above] VITALS:[See Below] PHYSICAL EXAMINATION: GENERAL: Awake, alert, mildly dyspneic-appearing, in no distress HENT: Normocephalic, atraumatic. Oropharynx unremarkable. EYES: Normal conjunctiva. Sclera non-icteric. NECK: Inspection normal. Non-tender. Supple. No nuchal rigidity. FROM. No masses. RESPIRATORY: Coarse breath sounds with scattered wheezes. No rales. Mildly increased respiratory effort. CARDIAC: Normal rate. Normal rhythm. No murmurs. No rubs. Extremities warm and well perfused. Pulses equal. No JVD. GI: Soft, non-distended. No tenderness to palpation. No rebound or guarding. No masses. RECTAL: Deferred. MUSCULOSKELETAL: Atraumatic. Chest examination reveals no tenderness. The back is symmetrical on inspection without obvious abnormality. There is no CVA tenderness to palpation. No joint edema. LOWER EXTREMITIES: Calves are equal size bilaterally and non-tender. No edema. No discoloration. NEURO: Normal sensorium. No sensory or motor deficits noted. SKIN: No rash or jaundice noted. ED COURSE: Procedures: [none] [Critical Care:] [None] Jose Vinson MD Past Med/Surg History Social History Preferred Language: Cymro Communication Ability: Effective Visual Impairment: No Limitations Nanotechnology Technician Required: No Beliefs That Will Affect Care: None marital status: Life Partner Current Living Situation: Family Current Living Situation Comment: CHILDREN 11 & 13 Feels Safe at Home: Yes Smoking Status: Former smoker Tobacco Type: cigarettes ; Cigarettes Per Day: 30 ; Second Hand Exposure: No ; Hx Alcohol Use: No Hx Substance Use: No Results & Data (ED) Vital Signs Vital Signs - 24 hr 01/07/20 14:45 01/07/20 15:21 01/07/20 15:52 Temperature 36.7 C Temperature Source Oral Pulse Rate 111 H Pulse Rate [Apical] Pulse Rate from SpO2 Sensor Pulse Rhythm Regular Pulse Strength Normal Respiratory Rate 26 H Respiratory Effort / Characteristics Non-Labored Spontaneous Respiratory Depth Normal Normal Respiratory Pattern Regular Regular Blood Pressure 148/97 H Blood Pressure Mean 114 Blood Pressure Position Sitting Pulse Oximetry 96 95 Oxygen Delivery Method Room Air Room Air Sepsis Recent Fever Within 48 Hours No Sepsis New/Unexplained Change in Mental Status No Sepsis Action Taken by Nursing No Action Required 01/07/20 16:30 01/07/20 16:44 01/07/20 16:50 Temperature Temperature Source Pulse Rate 106 H 109 H 102 H Pulse Rate [Apical] Pulse Rate from SpO2 Sensor 107 H 102 H Pulse Rhythm Pulse Strength Respiratory Rate 17 21 24 Respiratory Effort / Characteristics Respiratory Depth Respiratory Pattern Blood Pressure 152/107 H Blood Pressure Mean 119 Blood Pressure Position Pulse Oximetry 96 98 Oxygen Delivery Method Sepsis Recent Fever Within 48 Hours Sepsis New/Unexplained Change in Mental Status Sepsis Action Taken by Nursing 01/07/20 17:44 Temperature Temperature Source Pulse Rate Pulse Rate [Apical] 101 H Pulse Rate from SpO2 Sensor Pulse Rhythm Pulse Strength Respiratory Rate 20 Respiratory Effort / Characteristics Spontaneous Short of Breath Respiratory Depth Respiratory Pattern Blood Pressure Blood Pressure Mean Blood Pressure Position Pulse Oximetry 96 Oxygen Delivery Method Room Air Sepsis Recent Fever Within 48 Hours Sepsis New/Unexplained Change in Mental Status Sepsis Action Taken by Nursing Laboratory Data Result diagrams: 01/07/20 15:40 01/07/20 15:40 Lab Results 01/07/20 01/07/20 01/07/20 Range/Units 15:40 15:40 15:40 WBC 19.20 H (4.8-10.8) K/uL RBC 5.29 (4.2-5.4) M/uL Hgb 13.9 (12.0-16.0) g/dL Hct 43.0 (37-47) % MCV 81.3 (80-100) fL MCH 26.3 (25-34) pg MCHC 32.3 (32-36) g/dL RDW Std Deviation 47.7 H (36.4-46.3) fL RDW Coeff of Nabeel 16.0 H (11.5-14.5) % Plt Count 392 (130-400) K/uL MPV 9.6 (7.4-10.4) fL Immature Gran % (Auto) 5.3 % Neut % (Auto) 82.2 % Lymph % (Auto) 9.1 % Cecil % (Auto) 3.1 % Eos % (Auto) 0.1 % Baso % (Auto) 0.2 % Immature Gran # (Auto) 1.01 H (0.00-0.02) K/uL Neut # (Auto) 15.81 H (1.4-6.5) K/uL Lymph # (Auto) 1.74 (1.2-3.4) K/uL Cecil # (Auto) 0.59 (0.11-0.59) K/uL Eos # (Auto) 0.02 (0-0.5) K/uL Baso # (Auto) 0.03 (0-0.2) K/uL PT 10.7 (9.0-12.0) Seconds INR 1.0 (0.9-1.1) APTT 23.4 (21.0-31.0) Seconds PTT Ratio 0.8 Sodium 138 (136-145) mmol/L Potassium 3.9 (3.5-5.1) mmol/L Chloride 109 H (98-107) mmol/L Carbon Dioxide 18 L (21-32) mmol/L Anion Gap 11.0 (3-11) BUN 30 H (7-18) mg/dl Creatinine 1.53 H (0.6-1.2) mg/dl Est Cr Clr Drug Dosing 41.6 ml/min Est GFR ( Amer) 45.2 Est GFR (Non-Af Amer) 39.0 BUN/Creatinine Ratio 19.3 (10-20) Glucose 195 H (70-99) mg/dl Calcium 9.2 (8.5-10.1) mg/dl Magnesium 1.9 (1.8-2.4) mg/dl Total Bilirubin 0.4 (0.2-1) mg/dl AST 18 (15-37) U/L ALT 27 (12-78) U/L Alkaline Phosphatase 100 (45-117) U/L Troponin I < 0.015 (0-0.045) ng/ml Total Protein 7.4 (6.4-8.2) gm/dl Albumin 3.4 (3.4-5.0) gm/dl Globulin 4.0 (2.5-4.0) gm/dl Albumin/Globulin Ratio 0.9 (0.9-2) Specimen Hemolysis Influenza Type A (PCR) (Neg) Influenza Type B (PCR) (Neg) 01/07/20 Range/Units Unknown WBC (4.8-10.8) K/uL RBC (4.2-5.4) M/uL Hgb (12.0-16.0) g/dL Hct (37-47) % MCV (80-100) fL MCH (25-34) pg MCHC (32-36) g/dL RDW Std Deviation (36.4-46.3) fL RDW Coeff of Nabeel (11.5-14.5) % Plt Count (130-400) K/uL MPV (7.4-10.4) fL Immature Gran % (Auto) % Neut % (Auto) % Lymph % (Auto) % Cecil % (Auto) % Eos % (Auto) % Baso % (Auto) % Immature Gran # (Auto) (0.00-0.02) K/uL Neut # (Auto) (1.4-6.5) K/uL Lymph # (Auto) (1.2-3.4) K/uL Cecil # (Auto) (0.11-0.59) K/uL Eos # (Auto) (0-0.5) K/uL Baso # (Auto) (0-0.2) K/uL PT (9.0-12.0) Seconds INR (0.9-1.1) APTT (21.0-31.0) Seconds PTT Ratio Sodium (136-145) mmol/L Potassium (3.5-5.1) mmol/L Chloride (98-107) mmol/L Carbon Dioxide (21-32) mmol/L Anion Gap (3-11) BUN (7-18) mg/dl Creatinine (0.6-1.2) mg/dl Est Cr Clr Drug Dosing ml/min Est GFR ( Amer) Est GFR (Non-Af Amer) BUN/Creatinine Ratio (10-20) Glucose (70-99) mg/dl Calcium (8.5-10.1) mg/dl Magnesium (1.8-2.4) mg/dl Total Bilirubin (0.2-1) mg/dl AST (15-37) U/L ALT (12-78) U/L Alkaline Phosphatase (45-117) U/L Troponin I (0-0.045) ng/ml Total Protein (6.4-8.2) gm/dl Albumin (3.4-5.0) gm/dl Globulin (2.5-4.0) gm/dl Albumin/Globulin Ratio (0.9-2) Specimen Hemolysis Influenza Type A (PCR) Neg for Influ A (Neg) Influenza Type B (PCR) Neg for Influ B (Neg) Administered Medications Ioversol (Optiray 320 125ml) 118 ml IV ONCE PRN PRN Reason: Interaction Checking Stop: 01/11/20 16:36 Last Admin: 01/07/20 16:38 Dose: 118 ml Documented by: [id number] Discontinued Medications Albuterol (Duoneb) 3 ml NEB NOW STA Stop: 01/07/20 17:23 Last Admin: 01/07/20 17:43 Dose: 3 ml Documented by: [id number] Sodium Chloride (Nss) 500 mls @ 999 mls/hr IV .Q31M JAYLEN Stop: 01/07/20 16:00 Last Admin: 01/07/20 15:59 Dose: 999 mls/hr Documented by: [id number] Cefepime HCl (Maxipime) 2,000 mg in 20 mls @ 5 mls/min IV NOW STA; Protocol Stop: 01/07/20 17:25 Last Admin: 01/07/20 17:42 Dose: 5 mls/min Documented by: [id number] Methylprednisolone (Solumedrol) 125 mg IV NOW STA Stop: 01/07/20 15:18 Last Admin: 01/07/20 15:58 Dose: 125 mg Documented by: [id number] Discharge Plan Visit Data Chief Complaint: Shortness of Breath/Dyspnea Stated Complaint: SOB,COUGH,RESP HX ED Provider: Jose Vinson Discharge Problem: Acute exacerbation of chronic obstructive airways disease, Pneumonitis, Leukocytosis Forms Stand Alone Forms: My [facility] [place] [facility] Prescriptions Prescriptions: No Action donepezil [Aricept] 10 mg tablet 10 mg PO QAM RF: 0 montelukast [Singulair] 10 mg tablet 10 mg PO QAM RF: 0 cholecalciferol (vitamin D3) 1,000 unit capsule 6,000 units PO DAILY RF: 0 ferrous sulfate 325 mg (65 mg iron) tablet 325 mg PO DAILY RF: 0 atorvastatin 40 mg tablet 40 mg PO DAILY RF: 0 prednisone 10 mg tablet See Rx Instructions PO DAILY Qty: 36 RF: 0 azithromycin 250 mg tablet See Rx Instructions PO .COMPLEX Qty: 6 RF: 0 sodium chloride [Hyper-Sebastian] 7 % solution for nebulization 4 ml INH BID Qty: 240 RF: 5 fluconazole [Diflucan] 100 mg tablet 100 mg PO DAILY Qty: 10 RF: 0 memantine [Namenda] 10 mg tablet 10 mg PO BID RF: 0 lcjzpiytbke-txelxzqyx-ktcimmmy [Trelegy Ellipta] 100-62.5-25 mcg blister with device 1 inh inhalation DAILY RF: 0 amoxicillin-pot clavulanate [Augmentin] 875-125 mg tablet 1 tab PO Q12H Qty: 20 RF: 0 prednisone 10 mg tablet 5 mg PO HS RF: 0 metformin 500 mg tablet 1,000 mg PO QAM RF: 0 venlafaxine 150 mg capsule,extended release 24hr 150 mg PO QAM RF: 0 pantoprazole 40 mg tablet,delayed release (DR/EC) 40 mg PO QAM RF: 0 metformin 500 mg tablet 500 mg PO .AFTERNOON RF: 0 codeine-guaifenesin 10-100 mg/5 mL liquid 5 ml PO Q6H PRN (Reason: Cough) RF: 0 cyanocobalamin (vitamin B-12) 1,000 mcg/mL solution 1,000 mcg IM MONTHLY RF: 0 Stelara 90 mg/mL syringe 90 mg SUBCUT .Q3 MONTHS RF: 0 albuterol sulfate 90 mcg/actuation Hfa Aerosol Inhaler 1 - 2 puff INHALATION Q6H PRN (Reason: Shortness Of Breath) RF: 0
[2020-01-07 15:55] LABS: Hemoglobin 13.9 g/dL (12.0-16.0); Mean Corpuscular Hemoglobin 26.3 pg (25-34); Mean Corpuscular Hgb Conc 32.3 g/dL (32-36); Mean Corpuscular Volume 81.3 fL (80-100); Mean Platelet Volume 9.6 fL (7.4-10.4); Platelet Count 392 K/uL (130-400); RDW Standard Deviation 47.7 fL (36.4-46.3); Red Blood Count 5.29 M/uL (4.2-5.4)
[2020-01-07 16:06] LABS: Partial Thromboplastin Ratio 0.8; Partial Thromboplastin Time 23.4 Seconds (21.0-31.0); Prothrombin Time 10.7 Seconds (9.0-12.0)
[2020-01-07 16:12] LABS: Alanine Aminotransferase 27 U/L (12-78); Albumin Level 3.4 gm/dl (3.4-5.0); Aspartate Aminotransferase 18 U/L (15-37); BUN Creatinine Ratio 19.3 (10-20); Blood Urea Nitrogen 30 mg/dl (7-18); Calcium 9.2 mg/dl (8.5-10.1); Carbon Dioxide 18 mmol/L (21-32); Chloride 109 mmol/L (98-107); Creatinine Clr Calc Pharmacy 41.6 ml/min; Est GFR (African American) 45.2; Glucose 195 mg/dl (70-99); Magnesium 1.9 mg/dl (1.8-2.4); Potassium 3.9 mmol/L (3.5-5.1); Sodium 138 mmol/L (136-145)
--- NOTE | 2020-01-07 16:14 | XRay Report ---
XR chest 1V portable CLINICAL HISTORY: Dyspnea COMPARISON STUDY: Chest CT November 27, 2018. Chest radiograph January 26, 2019. Chest CT October 01, 2019. FINDINGS: Postoperative findings within the right lung remain unchanged since chest CT of September. Cardiomediastinal silhouette is stable. There is no pneumothorax or pleural effusion. There i s no consolidation to suggest pneumonia. IMPRESSION: No acute cardiopulmonary findings. Stable postoperative findings within the right hemith orax. ACT 112: Negative or not required by law. Electronically signed by: Tone Siegel M.D. 01/07/2020 4:13 PM
[2020-01-07 16:16] LABS: Albumin Globulin Ratio 0.9 (0.9-2); Alkaline Phosphatase 100 U/L (45-117); Bilirubin,Total 0.4 mg/dl (0.2-1); Total Protein 7.4 gm/dl (6.4-8.2); Troponin I < 0.015 ng/ml (0-0.045)
[2020-01-07 16:18] LABS: Basophils # (auto) 0.03 K/uL (0-0.2); Basophils % (auto) 0.2 %; Eosinophils # (auto) 0.02 K/uL (0-0.5); Eosinophils % (auto) 0.1 %; Immature Granulocytes # (auto) 1.01 K/uL (0.00-0.02); Immature Granulocytes % (auto) 5.3 %; Lymphocytes # (auto) 1.74 K/uL (1.2-3.4); Lymphocytes % (auto) 9.1 %; Monocytes # (auto) 0.59 K/uL (0.11-0.59); Monocytes % (auto) 3.1 %; Neutrophils # (auto) 15.81 K/uL (1.4-6.5); Neutrophils % (auto) 82.2 %
[2020-01-07] MEDS ORDERED: OPTIRAY 320 125ml IV PRN (16:37)
[2020-01-07 16:39] LABS: Influenza A virus by PCR Neg for Influ A (Neg); Influenza B virus by PCR Neg for Influ B (Neg)
--- NOTE | 2020-01-07 17:19 | CT Scan Report ---
CT ANGIOGRAPHY OF THE CHEST, PULMONARY EMBOLUS PROTOCOL CLINICAL HISTORY: Dyspnea COMPARISON STUDY: PET/CT April 25, 2019. Chest CT October 01, 2019. Chest radiograph performed earli er today. TECHNIQUE: Following IV administration of 118 mL of Optiray-320, helical axial images of the chest we re obtained utilizing the pulmonary embolus protocol. Maximal intensity projections and sagittal and coronal reformats were viewed on an independent 3D workstation. IV contrast was administered withou t complication. Automated exposure control was utilized for the study. A dose lowering technique wa s utilized adhering to the principles of ALARA. CT DOSE: 562.39 mGy.cm FINDINGS: Postoperative findings consistent with right upper lobectomy are noted. No thoracic lympha denopathy is present. Mild cardiomegaly is noted. There is no pericardial effusion. No pulmonary embo li are identified although opacification of the lower lobe pulmonary arteries is suboptimal. There is no thoracic aortic dissection. No pneumothorax or pleural effusion is noted. Central airways are pat ent. There is mild emphysema. Mild tree-in-bud nodules within the right lower lobe are present. These are new since CT of October 01, 2019. IMPRESSION: 1. No pulmonary emboli identified although lower lobe opacification suboptimal. 2. Mild tree-in-bud and groundglass opacities within the right lower lobe which suggests an infectiou s process. Follow-up chest CT in 3 months to ensure resolution is recommended. 3. Postoperative findings consistent with right upper lobectomy. No evidence for tumor recurrence. ACT 112: Negative or not required by law. Electronically signed by: Tone Siegel M.D. 01/07/2020 5:18 PM
[2020-01-07] MEDS ORDERED: ALBUT/IPRATROP 3MG/0.5MG NEB 3 ML VIAL NEB STA (17:22)
[2020-01-07] MEDS ORDERED: CEFEPIME 2,000 MG/20 ML VIAL IV STA (17:22)
--- NOTE | 2020-01-07 17:43 | History & Physical Report ---
Date of Service January 07, 2020 Assessment & Plan (1) Pneumonia: - Admit to med surg with tele - Sputum culture, mucinex, duonebs QID and Q2H prn, tessalon pearls - Wean O2 prn - Influenza swab neg, sick contact including granddaughter and her son only 2 to 3 weeks ago, unlikely COVID-19 - WBC at time of admission = 19 K - BCx x 2, follow - Afebrile - CXR reviewed as above - Continue antibiotic therapy with cefepime IV -Allow Hycodan cough syrup as per [employer] meds (2) COPD (chronic obstructive pulmonary disease): (3) Acute exacerbation of chronic obstructive airways disease: -Received Solu-Medrol 125 IV in the ER, will continue with 60 mg every 12 and titrate as able -Continue O2 supportive therapy, patient wears only 2L HS at baseline -Continue duo nebs -Holding outpatient prednisone, will likely need a long taper of prednisone at time of discharge -Consider pulmonology consult-follows with Chago Isidro PA-C as an outpatient -CTPE negative (4) Pneumonitis: - As on CXR, likely underlying COPD and pneumonia causing (5) Asthma: - Chronic, continue duonebs (6) Primary mucinous adenocarcinoma of lung: -History of such diagnosed November 2018 s/p RUL wedge resection by Dr. Jeter 12/05/2018 (7) Osteoarthritis: -Continue vitamin D supplementation (8) Diabetes mellitus, type 2: -Last A1c in our records is from over a year ago, repeat with a.m. labs, last A1c = 6.18 November 2018 -ISS with Accu-Cheks ACHS -Glycemic pharmacy consulted while on high-dose steroids, glucose running in high 200s at time of admission, patient reports poor oral intake secondary to URI. 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 Jeter on 12/05/2018, aspergillus infection, remote smoking history of 10 years, quit 20 years ago, COPD, obesity, Crohn's disease s/p ileostomy, history of acute renal insufficiency and HTN, DM type II, osteoarthritis, hypothyroidism, chronic lower back pain. The patient reports she has had a granddaughter visiting with her approximately 3 weeks ago who was sick with bronchitis, her 14-year-old son and contracted similar upper respiratory-like symptoms and then she got it about 2 weeks ago. Patient has been dealing with worsening shortness of breath, fati adrianna, malaise, and was seen by outpatient pulmonology, Chago Isidro. She had been placed on amoxicillin, followed by Augmentin, followed by azithromycin with her last dose to be taken tomorrow, without significant improvement. She was also placed on a prednisone taper during this time. Patient feels her breathing has not improved, and actually feels short of breath at rest and with long sentences at this point time. She has sputum production with cough which is white to yellow in color. Patient has been using Hycodan cough syrup for relief sleep. She denies any fever. She denies any recent travel out of the [place] or contact with any known COVID-19 persons. Allergies Allergy/AdvReac Type Severity Reaction Status Date / Time No Known Allergies Allergy Verified 01/07/20 16:26 Home Medications Home Medications Medication Instructions Recorded Confirmed Type cholecalciferol (vitamin D3) 25 6,000 units PO DAILY cap 07/15/18 01/07/20 History mcg (1,000 unit) capsule donepezil 10 mg tablet 10 mg PO QAM 07/15/18 01/07/20 History montelukast 10 mg tablet 10 mg PO QAM 07/15/18 01/07/20 History albuterol sulfate 1 - 2 puff INHALATION Q6H PRN 10/20/18 01/07/20 History atorvastatin 40 mg tablet 40 mg PO DAILY 05/26/19 01/07/20 History ferrous sulfate 325 mg (65 mg 325 mg PO DAILY tab 05/26/19 01/07/20 History iron) tablet prednisone 10 mg tablet 5 mg PO HS tab 05/26/19 01/07/20 History memantine 10 mg tablet 10 mg PO BID tab 08/03/19 01/07/20 History amoxicillin 875 mg-potassium 1 tab PO Q12H #20 tab 12/29/19 01/07/20 Rx clavulanate 125 mg tablet fluconazole 100 mg tablet 100 mg PO DAILY #10 tab 12/30/19 01/07/20 Rx azithromycin 250 mg tablet See Rx Instructions PO .COMPLEX #6 01/04/20 01/07/20 Rx tab prednisone 10 mg tablet See Rx Instructions PO DAILY #36 01/04/20 01/07/20 Rx tab sodium chloride 7 % for 4 ml INH BID #240 ml 01/04/20 01/07/20 Rx nebulization codeine-guaifenesin 5 ml PO Q6H PRN 01/07/20 01/07/20 History cyanocobalamin (vitamin B-12) 1,000 mcg IM MONTHLY 01/07/20 01/07/20 History metformin 1,000 mg PO QAM 01/07/20 01/07/20 History metformin 500 mg PO .AFTERNOON 01/07/20 01/07/20 History pantoprazole 40 mg PO QAM 01/07/20 01/07/20 History ustekinumab [Stelara] 90 mg SUBCUT .Q3 MONTHS 01/07/20 01/07/20 History venlafaxine 150 mg PO QAM 01/07/20 01/07/20 History Past Med/Surg History Social History Preferred Language: Qatari Communication Ability: Effective Visual Impairment: No Limitations Corporate Manager Required: No Beliefs That Will Affect Care: None marital status: Life Partner Current Living Situation: Family and Significant Other Current Living Situation Comment: son, daughter, and SO. Other Information That Helps Us Care for You: No Feels Safe at Home: Yes Safety Concerns: Feels Safe At This Time Smoking Status: Former smoker Tobacco Type: cigarettes ; Cigarettes Per Day: 30 ; Do You Dip or Chew Tobacco: No ; Second Hand Exposure: No ; Tobacco Cessation Education Requested by Patient: No Hx Alcohol Use: Yes Alcohol type: wine Hx Substance Use: No Review of Systems Review of Systems: Constitutional: No fever, sweats or chills + generalized, + fatigue + body aches Eyes: No diplopia, no worsening or blurred vision ENT: normal hearing, no trouble swallowing Respiratory: +cough, +sputum with white-yellow, + dyspnea on exertion, + short of breath with long sentences Cardiovascular: No chest pain, tightness or palpitations Abdomen: + LUQ pain worse with cough, otherwise No pain, nausea, vomiting, diarrhea or constipation Musculoskeletal: No joint pain, calf pain, swelling Neurologic: No focal weakness, numbness/tingling, or balance problems Psychiatric: No anxiety or depression Skin: No rash or itch Physical Exam Physical Exam: General: awake, alert, no apparent distress + obese, BMI 33.2 Head: Normocephalic, atraumatic ENT: PERRL, EOMI, no pharyngeal exudate, mucous membranes moist Chest: + on 2 L via NC, coarse rhonchorous breath sounds throughout, + expiratory and inspiratory wheezing throughout, Cardiac: + Sinus tach with HR = 102 no murmur, no JVD, normal peripheral pulses, good capillary refill Abdominal: NABS x 4 quadrants, soft, + LLQ ileostomy, with brown outs, + slightly tender to palpation in LUQ(pt reports from coughing), otherwise no rebound, guarding or tenderness Extremities: Normal inspection, no peripheral edema or erythema, calfs nontender to palpation Psych: Normal mood and affect Neuro: AAO x 3, strength intact bilaterally and rated 5/5, no motor deficits, speech is clear, no peripheral sensory deficits Skin: no rash or erythema Results & Data Results & Data ([facility]) Vital Signs (Past 12 Hours) Vital Signs Temp Pulse Resp BP Pulse Ox 01/07/20 16:50 102 H 24 98 01/07/20 16:44 109 H 21 01/07/20 16:30 106 H 17 152/107 H 96 01/07/20 15:21 95 01/07/20 14:45 36.7 C 111 H 26 H 148/97 H [address] ANGIOGRAPHY OF THE CHEST, PULMONARY EMBOLUS PROTOCOL CLINICAL HISTORY: Dyspnea COMPARISON STUDY: PET/CT April 25, 2019. Chest CT October 01, 2019. Chest radiograph performed earlier today. TECHNIQUE: Following IV administration of 118 mL of Optiray-320, helical axial images of the chest were obtained utilizing the pulmonary embolus protocol. Maximal intensity projections and sagittal and coronal reformats were viewed on an independent 3D workstation. IV contrast was administered without compl ication. Automated exposure control was utilized for the study. A dose lowering technique was utilized adhering to the principles of ALARA. CT DOSE: 562.39 mGy.cm FINDINGS: Postoperative findings consistent with right upper lobectomy are noted. No thoracic lymphadenopathy is present. Mild cardiomegaly is noted. There is no pericardial effusion. No pulmonary emboli are identified although opac ification of the lower lobe pulmonary arteries is suboptimal. There is no thoracic aortic dissection. No pneumothorax or pleural effusion is noted. Central airways are patent. There is mild emphysema. Mild tree-in-bud nodules within the right lower lobe are present. These are new since CT of October 01, 2019. IMPRESSION: 1. No pulmonary emboli identified although lower lobe opacification suboptimal. 2. Mild tree-in-bud and groundglass opacities within the right lower lobe which suggests an infectious process. Follow-up chest CT in 3 months to ensure resolution is recommended. 3. Postoperative findings consistent with right upper lobectomy. No evidence for tumor recurrence. ACT 112: Negative or not required by law. XR chest 1V portable CLINICAL HISTORY: Dyspnea COMPARISON STUDY: Chest CT November 27, 2018. Chest radiograph January 26, 2019. Chest CT October 01, 2019. FINDINGS: Postoperative findings within the right lung remain unchanged since chest CT of October 01, 2019. Cardiomediastinal silhouette is stable. There is no pneumothorax or pleural effusion. There is no consolidation to suggest pneumonia. IMPRESSION: No acute cardiopulmonary findings. Stable postoperative findings within the right hemithorax. ACT 112: Negative or not required by law. Electronically signed by: Tone Siegel M.D. 01/07/2020 4:13 PM Code Status & VTE Plan Code Status Full code-discussed with the patient at bedside Supervising Physician Co-Signing Physician Notes Patient seen and examined. In brief, Ms. Isidro is a 49 year old female with hx significant for mucinous adenocarcinoma s/p RUL wedge resction, aspergillus infection, COPD, Crohns s/p ileostomy (followed by [facility]), HTN, DM, hypothyroidism admitted with unresolved pneumonia despite outpatient antibiotics and steroids. Continues to feel short of breath with talking. +productive cough. No travel or known COVD19 contacts. ED course reviewed. Labs remarkable for leukocytosis (WBC 19), Cr 1.53/eGFR 39, troponin negative. Rapid flu neg. EKG NSR, no ST changes. CXR without consolidation. CTA Chest neg for PE, tree-in-bud and ground glass opacity in the RLL Given Solumedrol, cefepime and Duoneb. On exam, slightly tachycardic, wheezing and ronchi throughout but with fair air movement. On room air. 1. pneumonia/COPD exacerbation: continue cefepime, duonebs, solumedrol. Will likely require steroid taper. Hycodan and tessalon perles for cough. 2L NC O2 at night (home). Sputum culture, blood cultures pending. Follows with pulm as an outpatient (Chago Isidro). 2. DM: elevated glucose levels given steroids. Checking A1C. Hold home metformin. Accuchecks, ssi. Glycemic consult as we will likely be chasing her glucose levels with high dose steroids. 3. Crohns: on Stelara. Will be due for next dose soon. Last dose 3 months ago. Aware that she should wait until she is recovered from this before getting her next dose of Stellara. 4. Psoriasis. See above. Other chronic issues stable, will continue home medications. PG Care Time/CCT Total # of Minutes Spent Total Time Spent with Patient: Total time spent is greater than 50% in coordination of care (as documented) at patient's floor/unit and/or counseling patient: Coding Level of Care Code 74474 Initial Inpt Care Lvl 3 Diagnoses Pneumonia J18.9 COPD (chronic obstructive pulmonary disease) J44.9 Acute exacerbation of chronic obstructive airways disease J44.1 Pneumonitis J18.9 Asthma J45.909 Primary mucinous adenocarcinoma of lung C34.90 Osteoarthritis M19.90 Diabetes mellitus, type 2 E11.9 Hypothyroidism E03.9 Crohns disease K50.90 Psoriasis L40.9 Short-term memory loss R41.3 DVT prophylaxis Z29.9
[2020-01-07] MEDS ORDERED: methylPREDNISolone 125 MG/2 ML VIAL IV SCH (18:54)
[2020-01-07] MEDS ORDERED: GLUCOSE 10 TABS/TUBE PO PRN (18:54)
[2020-01-07] MEDS ORDERED: USTEKINUMAB 90 MG SQ SCH (18:54)
[2020-01-07] MEDS ORDERED: DEXTROSE 50% 50 ML SYRINGE IV PRN (18:54)
[2020-01-07] MEDS ORDERED: CARBOHYDRATES FOR HYPOGLYCEMIA PO PRN (18:54)
[2020-01-07] MEDS ORDERED: GLUCAGON FOR INJ 1 MG VIAL SQ PRN (18:54)
[2020-01-07] MEDS ORDERED: GLUCOSE 40% GEL 15 GM TUBE PO PRN (18:54)
[2020-01-07] MEDS ORDERED: PHARMACY GLYCEMIC MGMT CONSULT PRN (19:10)
[2020-01-07] MEDS ORDERED: INSULIN GLARGINE SOLOSTAR 100 UNITS/ML 3 ML PEN SC ONE (20:00)
[2020-01-07] MEDS ORDERED: PNEUMOCOCCAL ADMINISTRATION CHARGE ONE (20:00)
[2020-01-07] MEDS ORDERED: PNEUMOCOCCAL POLYSACCHARIDES 25 MCG/0.5 ML VIAL/SYR IM ONE (20:00)
[2020-01-07] MEDS: SODIUM CHLOR 7% 4 ML NEB INH SCH (21:02)
[2020-01-07] MEDS: MEMANTINE HCL 10 MG TAB PO SCH (21:04)
[2020-01-07] MEDS: INSULIN ASPART 100 UNITS/ML 3 ML PEN SC SCH (21:07)
[2020-01-08] MEDS: INSULIN ASPART 100 UNITS/ML 3 ML PEN SC SCH ×6 (01:02→20:34)
[2020-01-08] MEDS: CEFEPIME 1,000 MG in SYRINGE 0 ML IV SCH ×3 (01:07→18:50)
[2020-01-08] MEDS: methylPREDNISolone 60 MG in SYRINGE 0 ML IV SCH ×2 (04:11→16:06)
[2020-01-08] MEDS: ACETAMINOPHEN 325 MG TAB PO PRN ×3 (04:14→16:06)
[2020-01-08 05:30] LABS: Hematocrit (blood only) 40.3 % (37-47); Hemoglobin 13.2 g/dL (12.0-16.0); Mean Corpuscular Hgb Conc 32.8 g/dL (32-36); Mean Corpuscular Volume 79.3 fL (80-100); Mean Platelet Volume 9.5 fL (7.4-10.4); Platelet Count 382 K/uL (130-400); RDW Coefficient of Variation 15.8 % (11.5-14.5); Red Blood Count 5.08 M/uL (4.2-5.4)
[2020-01-08 05:57] LABS: Albumin Level 3.3 gm/dl (3.4-5.0); BUN Creatinine Ratio 22.9 (10-20); Calcium 8.7 mg/dl (8.5-10.1); Creatinine Clr Calc Pharmacy 54.4 ml/min; Est GFR (African American) 62.5; Est GFR (Non-African American) 53.9; Potassium 3.8 mmol/L (3.5-5.1)
[2020-01-08 06:00] LABS: Albumin Globulin Ratio 0.9 (0.9-2); Bilirubin,Total 0.6 mg/dl (0.2-1); Estimated Average Glucose 177 mg/dl; Globulin 3.5 gm/dl (2.5-4.0); Hemoglobin A1C 7.8 % (4.5-5.6); Total Protein 6.8 gm/dl (6.4-8.2)
[2020-01-08] MEDS: SODIUM CHLOR 7% 4 ML NEB INH SCH ×2 (07:12→18:47)
[2020-01-08] MEDS: ALBUTEROL HFA 8 GM INHALER INH PRN (08:08)
[2020-01-08] MEDS: PANTOprazole 40 MG TAB PO SCH (08:12)
[2020-01-08] MEDS: CHOLECALCIFEROL 1,000 UNITS 25 MCG TAB PO SCH (08:12)
[2020-01-08] MEDS: FERROUS SULFATE 325 MG TAB PO SCH (08:13)
[2020-01-08] MEDS: MONTELUKAST SODIUM 10 MG TABLET PO SCH (08:13)
[2020-01-08] MEDS: ATORVASTATIN 40 MG TAB PO SCH (08:13)
[2020-01-08] MEDS: DONEPEZIL HCL 10 MG TAB PO SCH (08:13)
[2020-01-08] MEDS: VENLAFAXINE HCL XR 150 MG CAPXR PO SCH (08:13)
[2020-01-08] MEDS: MEMANTINE HCL 10 MG TAB PO SCH ×2 (08:14→20:35)
[2020-01-08] MEDS: FLUTICASONE FUROATE 100MCG 14 PUFFS/INHALER INH SCH (08:19)
[2020-01-08] MEDS: UMECLIDINIUM/VILANTEROL 62.5/25MCG 7 PUFFS/INHALER INH SCH (08:19)
[2020-01-08] MEDS ORDERED: INSULIN GLARGINE SOLOSTAR 100 UNITS/ML 3 ML PEN SC SCH (09:00)
[2020-01-08] MEDS ORDERED: FLUCONAZOLE 100 MG TAB PO SCH (09:00)
[2020-01-08] MEDS ORDERED: CYANOCOBALAMIN 1000 MCG/ML VIAL IM SCH (09:00)
--- NOTE | 2020-01-08 09:04 | Pharmacy Report ---
Glycemic Control Consultation - Date of Service January 08, 2020 - Scope Scope: Glycemic Pharmacist consulted for glycemic control and to write orders per [facility] inpatient glycemic control protocol. - Objective Weight: 79.8 kg Accuchecks BSG (last 24hrs): 01/07/20 01/07/20 01/08/20 15:40 19:59 00:47 Glucose 195 H POC Glucose 225 H 215 H 01/08/20 01/08/20 01/08/20 04:28 05:20 07:56 Glucose 188 H POC Glucose 196 H 205 H Laboratory Data (last 24hrs): 01/07/20 01/08/20 15:40 05:20 Potassium 3.9 3.8 Carbon Dioxide 18 L 21 Anion Gap 11.0 7.0 Creatinine 1.53 H 1.17 D Est Cr Clr Drug Dosing 41.6 54.4 HbA1c: Hemoglobin A1c 7.8 % (4.5-5.6) H 01/08/20 05:20 - Recent Pertinent Medications Outpatient Anti-diabetic Regimen: * Metformin 1000 mg PO AM + 500 mg PO PM * A1c = 7.8% on 01/08/2020 * Increased from 6.5% in November 2018 The patient is currently receiving: * Basal insulin: Lantus 30 units x 1 (last evening) * Correctional Insulin: Novolog Correction per scale ACHS Goal Range: Low 110 mg/dL - High 140 mg/dL Correction Factor: 20 mg/dL/unit * Prandial insulin: Per carb ratio of 1 unit per 7 grams CHO consumed * Oral Agents: On hold Risk Factors for Insulin Resistance: * Steroids: * Solu-Medrol 125 mg IV x 1 yesterday @ 1500 * Solu-Medrol 60 mg IV Q12H (,) * Infection: * Cefepime empirically for suspected pulmonary source * Diet: * T2DM - Assessment & Plan Assessment & Plan: ASSESSMENT: * 49 yo F admitted for COPD Exacerbation * PMHx significant for adenocarcinoma of lung s/p RUL wedge resection, COPD * Patient is known to pharmacy glycemic service and previous admission data will be helpful * BSGs ranging 196 - 225 mg/dL overnight, may need to tighten correction factor * Fasting BSG this AM was 205 mg/dL, could be seeing Solu-Medrol effect from 0400 dose * Plan to be aggressive while patient is on high-dose glucocorticoids, will likely need to back off insulin dose as steroids taper off PLAN FOR INPATIENT GLYCEMIC CONTROL: * Pt is maintained on oral antidiabetic agents as an outpatient * Oral agents are not recommended for inpatient use d/t drug interactions, changing PO intake, and difficulty titrating for acute hyper/hypoglycemia. ADA recommends re-initiating outpatient oral agents 1-2 days prior to discharge if/when appropriate if they were held on admission. * Will hold oral agents for admission and utilize SQ basal bolus insulin regimen which is the recommended regimen for inpatient glycemic control. * ADA & AACE recommend a goal blood sugar range 140-180 mg/dl for the majority of critically ill & non-critically ill patients. However, more stringent targets may be selected in individual cases. Will utilize more stringent goal of 110 - 140mg/dl based on patient age & comorbidities. Additionally, tighter glycemic control is warranted to facilitate wound/infection healing. * INCREASED: Basal insulin * Lantus 20 units SQ x 1 this AM * Lantus 15 units SQ HS (for BSG < 110 mg/dL) * Lantus 20 units SQ HS (for BSG 110 mg/dL or above) * Bolus insulin * NovoLog per scale ACHS or Q6hrs while NPO * Goal Range: Low 110 mg/dL - High 140 mg/dL * TIGHTENED: Correction Factor: 15 mg/dL/unit * TIGTHENED: Nutritional / Prandial insulin per carb ratio of 1 unit per 5 grams CHO consumed * Please note that the plan above was derived based on current level of insulin resistance and hospital stress. These recommendations are appropriate for inpatient admission only. Plan of care upon discharge will need to be reassessed to avoid potential outpatient hypo/hyperglycemia. Thank you.
--- NOTE | 2020-01-08 16:07 | Electrocardiogram Report ---
Test Reason : Blood Pressure : / mmHG Vent. Rate : 108 BPM Atrial Rate : 108 BPM P-R Int : 134 ms QRS Dur : 072 ms QT Int : 328 ms P-R-T Axes : 063 011 046 degrees QTc Int : 439 ms Sinus tachycardia Otherwise normal ECG When compared with ECG of 21-NOV-2018 16:22, No significant change was found Confirmed by Jordan Melgar ([id number]) on 01/08/2020 4:06:53 PM Referred By: REFERRED SELF Confirmed By:Dileep Melgar
--- NOTE | 2020-01-08 18:25 | Family Medicine Progress Note ---
Date of Service January 08, 2020 Assessment & Plan Admission and Anticipated Discharge Date Admission Date: January 07, 2020 Supervising Physician Co-Signing Physician Notes 49 y/o female h/o mucinous adenocarcinoma s/p RUL wedge resection, aspergillius, COPD, Crohn's s/p ileostomy ([facility]), HTN, DM, hypothyroidism w/ community acquired pneumonia w/ outpatient treatment failure. Community acquired pneumonia in the setting of COPD w/ acute exacerbation - BCx pending. continue cefepime. Solumedrol 60mg IVq12, taper based on response. Symptomatic care w/ hycodan/pearles for cough. HTN - elevated BP while in hospital - hydralazine PRN for SBP > 180, DBP > 110. Follow outpatient records, no home medication for BP appreciated. DMII - A1c 7.8% (01/08/2020) - Glycemic consultation appreciated. Holding home metformin. Crohn's disease - holding off on next dose of Stellara 2/2 active infection Hypothyroidism - continue levothyroxin FULL CODE DVT PPX - lovenox Dispo - awaiting clinical improvement. Subjective Pt seen and examined at bedside. Feeling mildly improved from yesterday but far short of respiratory baseline. Persistent productive cough w/ mucous, shortness of breath and chest congestion. Review of Systems Constitutional: + fatigue; no fever and no chills Respiratory: + cough, + chest congestion and + wheezing Cardiovascular: no chest pain, no palpitations and no edema Gastrointestinal: no nausea, no vomiting, no change in stools and no constipation Genitourinary: no dysuria and no urinary frequency Integumentary: no rash and no lesions Physical Exam Constitutional: well developed, well nourished and + ill appearing ENMT: external ear and nose normal, oropharynx normal Mouth: no oropharynx abnormality Neck: trachea midline, no thyromegaly Respiratory: + cough Auscultation: + diminished lung sounds (throughout) and + wheezes Cardiovascular: RRR, no murmur, no edema Heart Sounds: normal S1 and normal S2 Gastrointestinal (Abdomen): normal bowel sounds, soft, nontender, no hepatosplenomegaly Skin: no rashes, warm and dry Psychiatric: A+Ox3, euthymic affect Speech: normal rate/rhythm/volume of speech Results & Data ([facility]) Vital Signs (Past 12 Hours) Vital Signs Temp Pulse Pulse Resp BP BP Pulse Ox 01/08/20 16:49 122 H 01/08/20 15:23 36.5 C 108 H 20 159/108 H 149/103 H 94 01/08/20 12:00 37.1 C 100 H 18 147/99 H 95 01/08/20 08:00 36.6 C 91 H 18 162/106 H 153/100 H 99 01/08/20 07:18 94 H 20 96 01/08/20 07:00 90
[2020-01-08] MEDS ORDERED: HydrALAZINE HCL 20 MG/ML VIAL IV PRN (18:34)
[2020-01-08] MEDS: lisinopriL 20 MG TAB PO SCH (19:41)
[2020-01-08] MEDS: GUAIFENESIN/CODEINE 200MG/20MG 10ML UDC PO PRN (19:47)
[2020-01-08] MEDS: INSULIN GLARGINE SOLOSTAR 100 UNITS/ML 3 ML PEN SC SCH (20:33)
[2020-01-08] MEDS: ENOXAPARIN INJ 40 MG/0.4 ML SYR SQ SCH (20:34)
[2020-01-09] MEDS: CEFEPIME 1,000 MG in SYRINGE 0 ML IV SCH ×3 (01:27→17:43)
[2020-01-09] MEDS: methylPREDNISolone 60 MG in SYRINGE 0 ML IV SCH ×2 (04:23→17:39)
[2020-01-09 06:05] LABS: Hematocrit (blood only) 40.6 % (37-47); Hemoglobin 13.1 g/dL (12.0-16.0); Mean Corpuscular Hgb Conc 32.3 g/dL (32-36); Mean Corpuscular Volume 80.6 fL (80-100); Mean Platelet Volume 9.4 fL (7.4-10.4); Platelet Count 446 K/uL (130-400); RDW Standard Deviation 46.9 fL (36.4-46.3); Red Blood Count 5.04 M/uL (4.2-5.4); White Blood Count 26.36 K/uL (4.8-10.8)
[2020-01-09 06:40] LABS: Albumin Globulin Ratio 0.9 (0.9-2); BUN Creatinine Ratio 25.3 (10-20); Bilirubin,Total 0.6 mg/dl (0.2-1); Creatinine Clr Calc Pharmacy 44.9 ml/min; Est GFR (African American) 49.4; Est GFR (Non-African American) 42.7; Globulin 3.5 gm/dl (2.5-4.0); Potassium 3.9 mmol/L (3.5-5.1); Total Protein 6.5 gm/dl (6.4-8.2)
[2020-01-09] MEDS: SODIUM CHLOR 7% 4 ML NEB INH SCH ×2 (07:20→19:08)
--- NOTE | 2020-01-09 07:32 | Family Medicine Progress Note ---
Date of Service January 09, 2020 Assessment & Plan (1) Hypothyroidism: 49 y/o female PMHx significant for mucinous adenocarcinoma s/p RUL wedge resection, aspergillus, COPD, Crohn's s/p ileostomy (PSH GI), HTN, DM2, hypothyroidism requiring acute care for the management of community acquired pneumonia failing outpatient treatment with Augmentin and azithromycin. CAP in patient with likely concurrent COPD exacerbation: - Pt with continued improvement in symptoms. While at baseline oxygen requirement at rest (no supplemental O2) and with sleep (2LNC) still feels subjectively SOB and is unable to walk about her room without significant SOB at this time. - Still with significant leukocytosis to 26 which is stable from yesterday. Pt with respiratory symptoms suggesting cause; no urinary or GI symptoms suggestive of secondary cause. - CXR this admission showed no findings suggestive of pneumonia. - F/u CTA showed "mild tree-in-bud and ground glass opacities within the right lower lobe which suggests an infectious process". - Follow-up chest CT in 3 months to ensure resolution is recommended. - CTPE negative in house. - BCx x 2 negative to date. - Continue antibiotic therapy with cefepime IV; will maintain this for today and consider deescalation tomorrow to oral antibiotics. - O2 as needed for oxygen saturations <90%. - Receiving Solu-Medrol 60mg IV BID at this time; if continued improvement will deescalate to 60mg PO daily tomorrow. - Albuterol INH 2 puffs q6h PRN SOB/wheezing. - Continue Singulair daily. DM2 controlled with oral therapy at home: - A1c this admission 7.8%. - Glycemic consult placed and followed by Pharmacy: - Continuing Lantus 20 units SQ BID (15 units if BSG < 160 mg/dL). D/C Lantus after this morning's dose as patient's basal needs drastically change with PO prednisone. Overnight checks to prevent significant hyperglycemia. - Tighten correction factor to 12 mg/dl/unit. - Tighten carb ratio to 1 unit per 4 grams CHO consumed. - Continuing goal range of Low 110 mg/dL - High 140 mg/dL. - Holding metformin at this time. Elevated Creatinine: - Pt this AM with Cr 1.42 from 1.17; baseline ~1.20. - Does not qualify for MISTY at this time but will follow with morning BMP tomorrow. - Encourage oral hydration. Osteoarthritis: - Continue vitamin D supplementation. Hypothyroidism: - Pt not on thyroid medication at home per EMR. - Will follow up outpatient. Crohn's disease: -S/p ileostomy, diagnosed since in her 20s, follows with [facility]. - Will hold Stelara at this time due to active infection. Code Status: FULL CODE FEN/GI: DM2 diet DVT prophylaxis: enoxaparin 40mg SQ daily Dispo: med/surg with possible discharge tomorrow pending symptom improvement (2) COPD (chronic obstructive pulmonary disease): (3) Crohns disease: (4) Diabetes mellitus, type 2: (5) Acute exacerbation of chronic obstructive airways disease: (6) Pneumonia: (7) Leukocytosis: (8) Primary mucinous adenocarcinoma of lung: (9) DVT prophylaxis: Admission and Anticipated Discharge Date Admission Date: January 07, 2020 Supervising Physician Co-Signing Physician Notes Attending attestation Pt seen and examined in concert with Dr. Gordon. In agreement with the documented findings as noted in the resident documentation with any exceptions or additions as noted here. Gradually improving shortness of breath and cough on current regimen though still short of baseline. Does use O2 qHS and did well overnight with same. On examination, S1/S2 nl RRR no MCG. Decreased breath sounds throughout with diffuse wheezing and lower lobe rales bilaterally. Abd NT/ND BS+ve CAP in the setting of COPD - BCx neg x 48 hrs later today. Will transition to PO abx in AM, along with transition to PO steroid tomorrow. will likely need prolo nged taper. Continue bunny Turkulair. Will require 3 month f/u CT chest. DMII - A1c 7.8% - glycemic consult - continue lantus with ISS. Restart metformin on discharge. May need glycemic support in follow up 2/2 steroid taper. Elevated Cr - encourage PO hydration. Trend in AM Else see resident documentation as noted. Subjective Pt without acute events overnight per patient and nursing. Reports that last night she was able to use her normal 2LNC overnight and rested well. During our conversation was on RA and speaking comfortably. No complaints of SOB while lying in bed however with any movement in the bed and with going to the bathroom with assistance she reports significant subjective SOB. No chest tightness. Confirms wheeze. No subjective fevers or chills. Review of Systems Constitutional: no fever and no chills Respiratory: + cough, + dyspnea on exertion and + wheezing Cardiovascular: no chest pain, no syncope and no edema Gastrointestinal: no abdominal pain, no nausea and no vomiting Genitourinary: no dysuria and no hematuria Physical Exam Constitutional: well developed, well nourished, nontoxic appearing ENMT: external ear and nose normal, oropharynx normal Neck: trachea midline, no thyromegaly Respiratory: + cough Auscultation: + diminished lung sounds (throughout) and + wheezes (diffuse) Cardiovascular: RRR, no murmur, no edema Heart Sounds: normal S1 and normal S2 Gastrointestinal (Abdomen): normal bowel sounds, soft, nontender, no hepatosplenomegaly ileostomy site intact with beefy red color, loose brown- green stool in ileostomy bag; no tenderness at site Skin: no rashes, warm and dry Psychiatric: A+Ox3, euthymic affect Speech: normal rate/rhythm/volume of speech Results & Data ([facility]) Vital Signs (Past 12 Hours) Vital Signs Temp Pulse Pulse Resp BP Pulse Ox 01/09/20 07:22 94 H 18 98 01/09/20 07:00 36.6 C 81 20 122/81 96 01/09/20 03:53 36.5 C 95 H 20 113/74 97 01/09/20 00:22 99 H 01/08/20 23:00 36.8 C 98 H 22 113/75 95 Laboratory Results Laboratory Results - last 24 hr 01/08/20 01/08/20 01/09/20 16:53 20:15 05:39 WBC 26.36 H RBC 5.04 Hgb 13.1 Hct 40.6 MCV 80.6 MCH 26.0 MCHC 32.3 RDW Std Deviation 46.9 H RDW Coeff of Nabeel 16.0 H Plt Count 446 H MPV 9.4 Sodium Potassium Chloride Carbon Dioxide Anion Gap BUN Creatinine Est Cr Clr Drug Dosing Est GFR ( Amer) Est GFR (Non-Af Amer) BUN/Creatinine Ratio Glucose POC Glucose 178 H 187 H Calcium Total Bilirubin AST ALT Alkaline Phosphatase Total Protein Albumin Globulin Albumin/Globulin Ratio Specimen Hemolysis 01/09/20 01/09/20 01/09/20 05:39 07:39 11:38 WBC RBC Hgb Hct MCV MCH MCHC RDW Std Deviation RDW Coeff of Nabeel Plt Count MPV Sodium 132 L Potassium 3.9 Chloride 102 Carbon Dioxide 21 Anion Gap 9.0 BUN 36 H Creatinine 1.42 H Est Cr Clr Drug Dosing 44.9 Est GFR ( Amer) 49.4 Est GFR (Non-Af Amer) 42.7 BUN/Creatinine Ratio 25.3 H Glucose 214 H POC Glucose 193 H 164 H Calcium 9.0 Total Bilirubin 0.6 AST 11 L ALT 20 Alkaline Phosphatase 78 Total Protein 6.5 Albumin 3.0 L Globulin 3.5 Albumin/Globulin Ratio 0.9 Specimen Hemolysis Resident Activity Tracking Resident Involvement: Resident Care Provided Care Provided: Adult Hospital Medicine
[2020-01-09] MEDS: lisinopriL 20 MG TAB PO SCH (08:07)
[2020-01-09] MEDS: MEMANTINE HCL 10 MG TAB PO SCH ×2 (08:08→20:44)
[2020-01-09] MEDS: CHOLECALCIFEROL 1,000 UNITS 25 MCG TAB PO SCH (08:08)
[2020-01-09] MEDS: FERROUS SULFATE 325 MG TAB PO SCH (08:08)
[2020-01-09] MEDS: VENLAFAXINE HCL XR 150 MG CAPXR PO SCH (08:08)
[2020-01-09] MEDS: ATORVASTATIN 40 MG TAB PO SCH (08:08)
[2020-01-09] MEDS: DONEPEZIL HCL 10 MG TAB PO SCH (08:09)
[2020-01-09] MEDS: PANTOprazole 40 MG TAB PO SCH (08:09)
[2020-01-09] MEDS: MONTELUKAST SODIUM 10 MG TABLET PO SCH (08:09)
[2020-01-09] MEDS: ALBUTEROL HFA 8 GM INHALER INH PRN (08:09)
[2020-01-09] MEDS: INSULIN ASPART 100 UNITS/ML 3 ML PEN SC SCH ×5 (08:14→23:56)
[2020-01-09] MEDS: INSULIN GLARGINE SOLOSTAR 100 UNITS/ML 3 ML PEN SC SCH (08:15)
[2020-01-09] MEDS: FLUTICASONE FUROATE 100MCG 14 PUFFS/INHALER INH SCH (08:24)
[2020-01-09] MEDS: UMECLIDINIUM/VILANTEROL 62.5/25MCG 7 PUFFS/INHALER INH SCH (08:25)
--- NOTE | 2020-01-09 09:22 | Pharmacy Report ---
Glycemic Control Progress Note - Date of Service January 09, 2020 - Scope Glycemic Pharmacist consulted for glycemic control to write orders per [facility] inpatient glycemic control protocol. - Objective Accuchecks BSG(last 24 hours):: 01/08/20 01/08/20 01/08/20 11:34 16:53 20:15 Glucose POC Glucose 191 H 178 H 187 H 01/09/20 01/09/20 05:39 07:39 Glucose 214 H POC Glucose 193 H HbA1c:: Hemoglobin A1c 7.8 % (4.5-5.6) H 01/08/20 05:20 - Recent Pertinent Medications The patient is currently receiving: * Basal insulin: Lantus 20 units every 12 hours * Correctional Insulin: Novolog Correction per scale ACHS Goal Range: Low 110 mg/dL - High 140 mg/dL Correction Factor: 15 mg/dL/unit * Prandial insulin: Per carb ratio of 1 unit per 5 grams CHO consumed - Outpatient Anti-Diabetic Meds metformin 1 gm PO qAM + 500 mg Po QDL - Assessment & Plan ASSESSMENT: * See progress note from 01/08/2020 for more background info, in short: * Pt receiving SQ basal bolus insulin regimen for hyperglycemia secondary to b aseline DM (outpatient regimen on hold), currently on Cefepime and Solu- Medrol 60 mg IV [id number]. * Patient is currently receiving an average of 93 units of insulin per day * 40 units of basal insulin * 53 units of prandial/correctional insulin * BSGs ranging 178 - 205 mg/dl over the past 24hrs * Changes needed to insulin regimen: * AM Fasting BSG = 193 mg/dl. This is above goal range for patient based on inpatient targets and co-morbidities. The basal insulin will be continued. While off IV steroids patient does not need as much basal insulin, will therefore push towards Novolog coverage today. * Post-prandial BSGs were stable yesterday. Tighten CF/CR to push towards a 60/40 bolus/basal split. * Total daily dose = ? units. Will change as steroids change. PLAN FOR INPATIENT GLYCEMIC CONTROL: * Continuing Lantus 20 units SQ BID (15 units if BSG < 160 mg/dL) * TIGHTENING correction factor to 12 mg/dl/unit * TIGHTENING carb ratio to 1 unit per 4 grams CHO consumed * Continuing goal range of Low 110 mg/dL - High 140 mg/dL * Please note that the plan above was derived based on current level of insulin resistance and hospital stress. These recommendations are appropriate for inpatient admission only. Plan of care upon discharge will need to be reassessed to avoid potential outpatient hypo/hyperglycemia. Thank you.
[2020-01-09] MEDS: ACETAMINOPHEN 325 MG TAB PO PRN (10:32)
[2020-01-09 17:21] LABS: Alanine Aminotransferase 25 U/L (12-78); Albumin Level 3.4 gm/dl (3.4-5.0); Aspartate Aminotransferase 12 U/L (15-37); Blood Urea Nitrogen 36 mg/dl (7-18); Calcium 9.3 mg/dl (8.5-10.1); Carbon Dioxide 20 mmol/L (21-32); Chloride 104 mmol/L (98-107); Creatinine Clr Calc Pharmacy 38.8 ml/min; Est GFR (African American) 41.5; Est GFR (Non-African American) 35.8; Glucose 174 mg/dl (70-99); Potassium 4.1 mmol/L (3.5-5.1); Sodium 132 mmol/L (136-145)
[2020-01-09 17:24] LABS: Hematocrit (blood only) 41.9 % (37-47); Hemoglobin 13.7 g/dL (12.0-16.0); Mean Corpuscular Hgb Conc 32.7 g/dL (32-36); Mean Corpuscular Volume 79.5 fL (80-100); Mean Platelet Volume 9.5 fL (7.4-10.4); Platelet Count 483 K/uL (130-400); RDW Standard Deviation 45.9 fL (36.4-46.3); Red Blood Count 5.27 M/uL (4.2-5.4); White Blood Count 30.88 K/uL (4.8-10.8)
[2020-01-09 17:25] LABS: Albumin Globulin Ratio 0.9 (0.9-2); Alkaline Phosphatase 87 U/L (45-117); Bilirubin,Total 0.5 mg/dl (0.2-1); Globulin 3.7 gm/dl (2.5-4.0); Total Protein 7.1 gm/dl (6.4-8.2); Troponin I < 0.015 ng/ml (0-0.045)
[2020-01-09 17:26] LABS: Basophils # (auto) 0.03 K/uL (0-0.2); Basophils % (auto) 0.1 %; Immature Granulocytes % (auto) 3.6 %; Lymphocytes # (auto) 1.76 K/uL (1.2-3.4); Lymphocytes % (auto) 5.7 %; Monocytes # (auto) 1.63 K/uL (0.11-0.59); Monocytes % (auto) 5.3 %; Neutrophils # (auto) 26.36 K/uL (1.4-6.5); Neutrophils % (auto) 85.3 %
[2020-01-09] MEDS: ENOXAPARIN INJ 40 MG/0.4 ML SYR SQ SCH (20:44)
[2020-01-09] MEDS: GUAIFENESIN/CODEINE 200MG/20MG 10ML UDC PO PRN (20:56)
[2020-01-10] MEDS: CEFEPIME 1,000 MG in SYRINGE 0 ML IV SCH ×2 (02:10→10:28)
[2020-01-10] MEDS: INSULIN ASPART 100 UNITS/ML 3 ML PEN SC SCH ×5 (04:03→21:21)
[2020-01-10] MEDS: ONDANSETRON INJ 2 MG/ML 2 ML VIAL IV PRN (04:09)
[2020-01-10 06:21] LABS: Basophils # (auto) 0.02 K/uL (0-0.2); Basophils % (auto) 0.1 %; Hematocrit (blood only) 41.1 % (37-47); Hemoglobin 13.1 g/dL (12.0-16.0); Immature Granulocytes # (auto) 0.68 K/uL (0.00-0.02); Lymphocytes # (auto) 1.38 K/uL (1.2-3.4); Lymphocytes % (auto) 6.1 %; Mean Corpuscular Hemoglobin 25.9 pg (25-34); Mean Corpuscular Hgb Conc 31.9 g/dL (32-36); Mean Corpuscular Volume 81.4 fL (80-100); Mean Platelet Volume 9.4 fL (7.4-10.4); Monocytes # (auto) 0.97 K/uL (0.11-0.59); Monocytes % (auto) 4.3 %; Neutrophils # (auto) 19.73 K/uL (1.4-6.5); Neutrophils % (auto) 86.5 %; Platelet Count 401 K/uL (130-400); RDW Coefficient of Variation 16.1 % (11.5-14.5); RDW Standard Deviation 47.9 fL (36.4-46.3); Red Blood Count 5.05 M/uL (4.2-5.4); White Blood Count 22.78 K/uL (4.8-10.8)
[2020-01-10 06:47] LABS: BUN Creatinine Ratio 27.9 (10-20); Blood Urea Nitrogen 44 mg/dl (7-18); Calcium 8.8 mg/dl (8.5-10.1); Carbon Dioxide 19 mmol/L (21-32); Chloride 104 mmol/L (98-107); Creatinine Clr Calc Pharmacy 40.2 ml/min; Est GFR (African American) 43.5; Est GFR (Non-African American) 37.5; Glucose 259 mg/dl (70-99); Sodium 132 mmol/L (136-145)
[2020-01-10 06:53] LABS: Troponin I < 0.015 ng/ml (0-0.045)
[2020-01-10] MEDS: SODIUM CHLOR 7% 4 ML NEB INH SCH ×2 (07:10→19:21)
[2020-01-10] MEDS: UMECLIDINIUM/VILANTEROL 62.5/25MCG 7 PUFFS/INHALER INH SCH (07:55)
[2020-01-10] MEDS: DONEPEZIL HCL 10 MG TAB PO SCH (07:56)
[2020-01-10] MEDS: FLUTICASONE FUROATE 100MCG 14 PUFFS/INHALER INH SCH (07:56)
[2020-01-10] MEDS: FERROUS SULFATE 325 MG TAB PO SCH (07:56)
[2020-01-10] MEDS: VENLAFAXINE HCL XR 150 MG CAPXR PO SCH (07:56)
[2020-01-10] MEDS: MONTELUKAST SODIUM 10 MG TABLET PO SCH (07:57)
[2020-01-10] MEDS: ATORVASTATIN 40 MG TAB PO SCH (07:57)
[2020-01-10] MEDS: PANTOprazole 40 MG TAB PO SCH (07:57)
[2020-01-10] MEDS: MEMANTINE HCL 10 MG TAB PO SCH ×2 (07:57→21:21)
[2020-01-10] MEDS: lisinopriL 20 MG TAB PO SCH (07:57)
[2020-01-10] MEDS: CHOLECALCIFEROL 1,000 UNITS 25 MCG TAB PO SCH (07:57)
[2020-01-10] MEDS: predniSONE 20 MG TAB PO SCH (07:57)
--- NOTE | 2020-01-10 08:34 | Pharmacy Report ---
Glycemic Control Progress Note - Date of Service January 10, 2020 - Scope Glycemic Pharmacist consulted for glycemic control to write orders per [facility] inpatient glycemic control protocol. - Objective Accuchecks BSG(last 24 hours):: 01/09/20 01/09/20 01/09/20 11:38 16:47 16:51 Glucose 174 H POC Glucose 164 H 183 H 01/09/20 01/09/20 01/10/20 20:04 23:49 03:53 Glucose POC Glucose 171 H 163 H 141 H 01/10/20 01/10/20 05:34 07:31 Glucose 259 H POC Glucose 171 H HbA1c:: Hemoglobin A1c 7.8 % (4.5-5.6) H 01/08/20 05:20 - Recent Pertinent Medications The patient is currently receiving: * Basal insulin: Lantus [] units every [] hours * Correctional Insulin: Novolog Correction per scale ACHS Goal Range: Low [] mg/dL - High [] mg/dL Correction Factor: [] mg/dL/unit * Prandial insulin: Per carb ratio of 1 unit per [] grams CHO consumed * Oral Agents: - Outpatient Anti-Diabetic Meds metformin 1 gm PO qAM + 500 mg PO QDL - Assessment & Plan ASSESSMENT: * See progress note from 01/08/2020 for more background info, in short: * Pt receiving SQ basal bolus insulin regimen for hyperglycemia secondary to baseline DM (outpatient regimen on hold),stress/infection (currently on cefepime), and steroids (just transitioned from IV Solu-Medrol to PO Prednisone 60 mg daily). * Patient is currently receiving an average of 76 units of insulin per day * 20 units of basal insulin * 56 units of prandial/correctional insulin * BSGs ranging 163 - 193 mg/dl over the past 24hrs * Changes needed to insulin regimen: * AM Fasting BSG = 171 mg/dl. This is in goal range for patient based on inpatient targets and co-morbidities. The patient was transitioned to PO prednisone today. Last dose of Solu-Medrol was yesterday at 1600. Based upon previous data, the patient requires around 20 units on prednisone 40 mg PO BID. Lantus was cut after a dose yesterday morning in preparation for this. Will hold off on NPH at this point since patient was only receiving around 12 units during previous hospitalization. * Post-prandial BSGs are in range yesterday. Loosened this morning to CF of 25 and CR of 7. Previously patient was receiving NPH 12 units plus CF of 30 and CR of 12 (TDD of ~20 units/day). As mentioned above hold off on NPH. Will need a slightly tighter CF and CR since no NPH given and Solu-Medrol's effects are still active. Also unsure how patient will respond to 60 mg of prednisone since only have evidence with 40 mg or lower. Plan to loosen further even later today or tomorrow based upon patient's response. * Total daily dose = ? units. Will be changing with changing steroids. * Additional notes / comments: continue to hold metformin since patient's kidney function has been worsening past two days PLAN FOR INPATIENT GLYCEMIC CONTROL: * NO LANTUS * LOOSENING correction factor to 25 mg/dl/unit * LOOSENING carb ratio to 1 unit per 7 grams CHO consumed * Continuing goal range of Low 110 mg/dL - High 140 mg/dL RECOMMENDATIONS FOR DISCHARGE: * TBD based upon patient's discharge steroids * Please note that the plan above was derived based on current level of insulin resistance and hospital stress. These recommendations are appropriate for inpatient admission only. Plan of care upon discharge will need to be reassessed to avoid potential outpatient hypo/hyperglycemia. Thank you.
--- NOTE | 2020-01-10 12:10 | Electrocardiogram Report ---
Test Reason : Blood Pressure : / mmHG Vent. Rate : 094 BPM Atrial Rate : 094 BPM P-R Int : 140 ms QRS Dur : 078 ms QT Int : 358 ms P-R-T Axes : 058 018 038 degrees QTc Int : 447 ms Normal sinus rhythm Normal ECG When compared with ECG of 07-JAN-2020 15:52, No significant change was found Confirmed by Kali Coon ([id number]) on 01/10/2020 12:10:22 PM Referred By: REFERRED SELF Confirmed By:Kali Coon
--- NOTE | 2020-01-10 15:50 | Family Medicine Progress Note ---
Date of Service January 10, 2020 Assessment & Plan (1) Acute exacerbation of chronic obstructive airways disease: 49 y/o female h/o mucinous adenocarcinoma s/p RUL wedge resection, aspergillus, COPD, Crohn's s/p ileostomy (PSH GI), HTN, DM2, hypothyroidism requiring acute care for the management of community acquired pneumonia failing outpatient treatment with Augmentin and azithromycin. CAP in patient with concurrent COPD exacerbation - tolerating PO prednisone 60mg. Transitioned to PO doxycycline. Baseline oxygen requirement of 2LNC qHS. Continue singulair, albuterol PRN Leukocytosis improved from 30 --> 22.78 DMII - A1c 7.8% - glycemic consultation appreciated. Holding metformin MISTY - improved from 1.64 --> 1.58. Encourage PO hydration Osteoarthritis - vitamin D Hypothyroidism - follow up outpatient Crohn's disease s/p ileostomy - holding Stelara Code Status: FULL CODE FEN/GI: DM2 diet DVT prophylaxis: enoxaparin 40mg SQ daily Dispo: Likely D/C tomorrow with tolerance of PO regimen and improvement COVID discussed with infection control team - low likelihood, testing eschewed. (2) Hypothyroidism: (3) COPD (chronic obstructive pulmonary disease): (4) Crohns disease: (5) Diabetes mellitus, type 2: (6) Pneumonia: (7) Leukocytosis: (8) Primary mucinous adenocarcinoma of lung: (9) DVT prophylaxis: Admission and Anticipated Discharge Date Admission Date: January 07, 2020 Subjective Pt seen and examined at bedside. Gradual improvement of shortness of breath with activity and persistent cough. Slight improvement in diffuse erythematous blanching rash of the chest and face with transition to PO prednisone. Review of Systems Constitutional: + fatigue; no fever and no chills Respiratory: + cough, + chest congestion, + dyspnea and + wheezing Cardiovascular: no chest pain, no palpitations and no syncope Gastrointestinal: no abdominal pain, no nausea, no vomiting, no constipation and no diarrhea/loose stools Integumentary: + rash; no lesions Physical Exam Constitutional: WD/WN, vitals as above no acute distress Respiratory: no respiratory distress Auscultation: + rales and + wheezes Cardiovascular: RRR, no murmur, no edema Heart Sounds: normal S1 and normal S2 Gastrointestinal (Abdomen): normal bowel sounds, soft, nontender, no hepatosplenomegaly Skin: + rash (diffuse blanching erythematous rash mildly improved in intensity from prev) Neurologic: PERRL, EOMI, accommodation nl, no face palsy, no dysarthria Results & Data ([facility]) Vital Signs (Past 12 Hours) Vital Signs Temp Pulse Pulse Resp BP Pulse Ox 01/10/20 15:04 36.4 C L 103 H 20 115/78 96 01/10/20 11:16 36.7 C 93 H 20 123/82 95 01/10/20 09:29 74 01/10/20 07:14 36.6 C 85 18 111/76 97 01/10/20 07:12 73 18 96 01/10/20 04:17 36.5 C 81 20 110/73 97
[2020-01-10] MEDS: ACETAMINOPHEN 325 MG TAB PO PRN (17:06)
[2020-01-10] MEDS: ENOXAPARIN INJ 40 MG/0.4 ML SYR SQ SCH (21:21)
[2020-01-10] MEDS: DOXYCYCLINE HYCLATE 100 MG CAP PO SCH (21:22)
[2020-01-10] MEDS: GUAIFENESIN/CODEINE 200MG/20MG 10ML UDC PO PRN (21:23)
[2020-01-11] MEDS: SODIUM CHLOR 7% 4 ML NEB INH SCH (06:52)
[2020-01-11 07:00] LABS: Basophils # (auto) 0.03 K/uL (0-0.2); Basophils % (auto) 0.1 %; Eosinophils # (auto) 0.06 K/uL (0-0.5); Eosinophils % (auto) 0.2 %; Hematocrit (blood only) 45.6 % (37-47); Hemoglobin 14.5 g/dL (12.0-16.0); Immature Granulocytes # (auto) 0.97 K/uL (0.00-0.02); Immature Granulocytes % (auto) 3.9 %; Lymphocytes # (auto) 2.58 K/uL (1.2-3.4); Lymphocytes % (auto) 10.4 %; Mean Corpuscular Hemoglobin 25.7 pg (25-34); Mean Corpuscular Hgb Conc 31.8 g/dL (32-36); Mean Corpuscular Volume 80.7 fL (80-100); Mean Platelet Volume 9.3 fL (7.4-10.4); Monocytes # (auto) 1.38 K/uL (0.11-0.59); Monocytes % (auto) 5.6 %; Neutrophils # (auto) 19.71 K/uL (1.4-6.5); Neutrophils % (auto) 79.8 %; Platelet Count 371 K/uL (130-400); RDW Coefficient of Variation 16.1 % (11.5-14.5); RDW Standard Deviation 46.8 fL (36.4-46.3); Red Blood Count 5.65 M/uL (4.2-5.4); White Blood Count 24.73 K/uL (4.8-10.8)
[2020-01-11 07:33] LABS: BUN Creatinine Ratio 26.5 (10-20); Calcium 9.3 mg/dl (8.5-10.1); Creatinine Clr Calc Pharmacy 31.8 ml/min; Est GFR (African American) 32.9; Est GFR (Non-African American) 28.4; Potassium 4.2 mmol/L (3.5-5.1)
[2020-01-11] MEDS ORDERED: NovoLIN-N (NPH) PER UNIT CHARGE SQ ONE (08:15)
[2020-01-11] MEDS: FLUTICASONE FUROATE 100MCG 14 PUFFS/INHALER INH SCH (08:15)
[2020-01-11] MEDS: UMECLIDINIUM/VILANTEROL 62.5/25MCG 7 PUFFS/INHALER INH SCH (08:16)
[2020-01-11] MEDS: DONEPEZIL HCL 10 MG TAB PO SCH (08:16)
[2020-01-11] MEDS: VENLAFAXINE HCL XR 150 MG CAPXR PO SCH (08:17)
[2020-01-11] MEDS: PANTOprazole 40 MG TAB PO SCH (08:17)
[2020-01-11] MEDS: ATORVASTATIN 40 MG TAB PO SCH (08:17)
[2020-01-11] MEDS: MEMANTINE HCL 10 MG TAB PO SCH ×2 (08:17→20:36)
[2020-01-11] MEDS: predniSONE 20 MG TAB PO SCH (08:17)
[2020-01-11] MEDS: CHOLECALCIFEROL 1,000 UNITS 25 MCG TAB PO SCH (08:17)
[2020-01-11] MEDS: MONTELUKAST SODIUM 10 MG TABLET PO SCH (08:17)
[2020-01-11] MEDS: FERROUS SULFATE 325 MG TAB PO SCH (08:17)
[2020-01-11] MEDS: lisinopriL 20 MG TAB PO SCH (08:18)
[2020-01-11] MEDS: DOXYCYCLINE HYCLATE 100 MG CAP PO SCH ×2 (08:18→20:38)
[2020-01-11] MEDS: INSULIN ASPART 100 UNITS/ML 3 ML PEN SC SCH ×4 (08:21→20:36)
[2020-01-11] MEDS: ONDANSETRON INJ 2 MG/ML 2 ML VIAL IV PRN (10:17)
--- NOTE | 2020-01-11 11:21 | Pharmacy Report ---
Pharmacy Glycemic Short Note 2 - Date of Service January 11, 2020 - Glycemic Short BSG Results (Last 24 hours): 01/10/20 01/10/20 01/10/20 11:25 16:45 20:18 Glucose POC Glucose 137 H 252 H 214 H 01/11/20 01/11/20 06:41 07:35 Glucose 118 H POC Glucose 105 H OUTPATIENT ANTIDIABETIC REGIMEN: * Metformin 1000 mg po qAM and 500 mg po with lunch ASSESSMENT: * 49 yo F with T2DM admitted for CAP/COPD exacerbation (failed outpatient antibiotics) * PMH: adenocarcinoma s/p RUL wedge resection, aspergillus, COPD, Crohn's s/p ileostomy, HTN, DM2, hypothyroidism * Prednisone continues at 60 mg this AM * Significant hyperglycemia >200 mg/dL x2 noted yesterday evening - likely steroid effects of prednisone administered in AM. Will initiate NPH with prednisone in AM to help decrease post-prandial spike. NPH selected instead of Lantus as fasting BSG in goal range therefore would like to avoid active basal insulin overnight at this time * Will add one overnight check PLAN FOR INPATIENT GLYCEMIC CONTROL: * Hold outpatient oral diabetes medications * Basal insulin * NPH 20 units SQ x1 * Bolus insulin * NovoLog per scale ACHS or Q6hrs while NPO * Goal Range: Low 110 mg/dL - High 140 mg/dL * Correction Factor: 30 mg/dL/unit * Nutritional / Prandial insulin per carb ratio of 1 unit per 10 grams CHO consumed PLAN FOR DISCHARGE: * Continue home metformin, assuming no contraindications at discharge and eGFR >45 mL/min
--- NOTE | 2020-01-11 12:09 | Hospitalist Progress Note ---
Date of Service January 11, 2020 Assessment & Plan (1) Acute exacerbation of chronic obstructive airways disease: CT chest on 01/06 showed mild tree-in-bud; concerning for infection. - Treating with doxycycline PO, prednisone. - At baseline O2 requirement of 2L QHS. - Continue Singulair, albuterol PRN - COVID discussed with infection control team - low likelihood, testing eschewed. (2) Pneumonia: - As above (3) MISTY (acute kidney injury): Baseline Cr ~1.2, eGFR ~50-55. - Was bouncing around 1.6 this admission. - Up to 2.0 on 01/10 -> Unclear cause; she reports drinking plenty of fluids and having clear urine. - Follows with Dr. Salgado; will consult as cause is not entirely clear. (4) Diabetes mellitus, type 2: A1c was 7.8% this admission. - ISS with [employer] ACHS - Glycemic pharmacy consulted while on high-dose steroids, glucose running in high 200s at time of admission, patient reports poor oral intake secondary to URI. - Holding metformin - Blood sugars stable ~100-250 in last 24 hours. (5) Hypothyroidism: TSH was last checked in 2017 in our chart. No indicates of hypo- or hyperthyroidism. - Continue levothyroxine (6) Crohns disease: S/p ileostomy creation, diagnosed since in her 20s, follows with [facility]. 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 Jeter on 12/05/2018. - No inpatient needs (8) DVT prophylaxis: Lovenox 40mg SQ QHS Admission and Anticipated Discharge Date Admission Date: January 07, 2020 Subjective Still having some cough and wheezing. Shortness of breath has improved. Does not feel safe going home. Reports no fevers/chills, chest pain, abdominal pain, nausea, or vomiting. Physical Exam Constitutional: WD/WN, vitals as above Eyes: EOM intact bilaterally; no conjunctival abnormality ENMT: external ear and nose normal, oropharynx normal Neck: trachea midline, no thyromegaly normal visual inspection Respiratory: no respiratory distress Auscultation: + wheezes Cardiovascular: RRR, no murmur, no edema Gastrointestinal (Abdomen): Inspection/Auscultation: abdomen normal to inspection; abdomen not distended Musculoskeletal: no cyanosis or clubbing, extremities motor strength 5/5 Skin: no rashes, warm and dry Neurologic: moves all extremities and awake Psychiatric: Orientation: alert, oriented to person and cooperative Results & Data Results & Data ([facility]) Vital Signs (Past 12 Hours) Vital Signs Temp Pulse Pulse Resp BP BP Pulse Ox 01/11/20 11:22 36.6 C 102 H 16 110/78 97 01/11/20 11:19 92 H 01/11/20 07:17 36.4 C L 88 18 124/87 97 01/11/20 06:52 92 H 16 97 01/11/20 04:00 36.5 C 92 H 20 100/68 97 PG Care Time/CCT Total # of Minutes Spent Total Time Spent with Patient: Total time spent is greater than 50% in coordination of care (as documented) at patient's floor/unit and/or counseling patient: Coding Level of Care Code 60322 Subseq Hosp Care Lvl 3 Diagnoses Acute exacerbation of chronic obstructive airways disease J44.1 Pneumonia J18.9 MISTY (acute kidney injury) N17.9 Diabetes mellitus, type 2 E11.9 Hypothyroidism E03.9 Crohns disease K50.90 Primary mucinous adenocarcinoma of lung C34.90 DVT prophylaxis Z29.9
--- NOTE | 2020-01-11 12:55 | XRay Report ---
XR chest 2V PA/lateral CLINICAL HISTORY: Pneumona; monitoring dyspnea COMPARISON STUDY: 01/07/2020 FINDINGS: Stable postoperative changes right hemithorax. Chronic interstitial changes both lung bases unaltered from the prior exam. Mid and upper lungs are c lear. IMPRESSION: Chronic and postoperative change. No acute process. No change from the prior exam. ACT 112: Negative or not required by law. The above report was generated using voice recognition software. It may contain grammatical, syntax or spelling errors. Electronically signed by: Casey Pierce M.D. 01/11/2020 12:53 PM
[2020-01-11 14:06] LABS: Appearance Urine Clear (Clear); Bilirubin Urine Negative (Negative); Blood Urine Negative (Negative); Color Urine Yellow; Glucose Urine UA Negative (Negative); Ketones Urine Negative (Negative); Leukocyte Esterase Urine Negative (Negative); Nitrite Urine Negative (Negative); Protein Urine Trace (Negative); Urobilinogen Urine Negative (Negative); pH Urine 5.5 (4.5-7.5)
[2020-01-11 14:24] LABS: RBC Urine Automated 0-4 /hpf (0-4)
[2020-01-11 14:25] LABS: Bacteria Urine Automated Negative (Negative)
[2020-01-11] MEDS ORDERED: CEFDINIR 300 MG CAP PO ONE (14:30)
--- NOTE | 2020-01-11 18:15 | Nephrology Consultation ---
Date of Consultation January 11, 2020 Assessment & Plan (1) MISTY (acute kidney injury): 49-year-old female with past medical history stage III CKD, well controlled hypertension diabetes, admitted to the hospital with COPD exacerbation and CAP with failed outpatient antibiotic. Baseline creatinine variable from 1.2-1.5 renal function was at baseline on admission, developed MISTY over last 3 days and renal function has been progressively worsening. Acute kidney injury could be related to IV contrast exposure or hemodynamically mediated, with her history of recurrent acute kidney injury. Unlikely any glomerular disease or interstitial nephritis with benign urine exam. --if it is contrast nephropathy, expect creatinine to level pretty soon and then start to improve. --advise to keep well hydrated avoid nephrotoxic medications, okay to continue on lisinopril --if renal function continues to worsen rapidly will consider serological workup however like to wait at this time Will follow Thank you for allowing me to participate in your patient's care. It was a pleasure to see Yu (2) Diabetes mellitus, type 2: (3) Acute exacerbation of chronic obstructive airways disease: (4) Metabolic acidosis: History of Present Illness Reason for Consultation: Acute kidney injury. Attending Physician: Lex Bentley MD History of Present Illness Yu Isidro is a 49 year old F with past medical history significant for hypertension diabetes stage IIIA CKD with prior history of AK admitted to the hospital with COPD exacerbation and community-acquired pneumonia. Nephrology consult was requested to manage acute kidney injury. Electronic medical records including labs and imaging were reviewed in detail during patient's visit. Yu was admitted to hospital on 01/07/2020 with community-acquired pneumonia and COPD exacerbation and failed outpatient antibiotic. She has been on empiric antibiotics, steroid and inhaler since admission. Influenza A was negative. Has stage IIIA chronic kidney disease with variability in creatinine somewhere from 1.2-1.5 with prior history MISTY in April 2019 when creatinine was to 80, eventually improved which was thought to be secondary to ATN. On admission creatinine was at baseline. She had CT chest with PE protocol on admission which was negative for PE. Blood pressure been stable. She denied taking NSAIDs. She has been on lisinopril 20 milligram which was continued. Has not been any diuretics. Over last 3 days her creatinine slowly started to rise in creatinine was 2.0 this morning. Urinalysis with trace proteinuria otherwise unremarkable with hematuria. Renal ultrasound was otherwise unremarkable with no postrenal obstruction. She also has non gap metabolic acidosis. She denies any known family history of chronic kidney disease or end-stage renal disease. Ex-smoker. History of hypertension diabetes well controlled, on lisinopril and metformin. History of right lung cancer status post upper lobe resection. She has occasional but denies any significant shortness of breath or chest pain, has been afebrile. Has been voiding normally. Blood pressure has been well controlled. Allergies Allergy/AdvReac Type Severity Reaction Status Date / Time No Known Allergies Allergy Verified 01/07/20 16:26 Home Medications Home Medications Medication Instructions Recorded Confirmed Type cholecalciferol (vitamin D3) 25 6,000 units PO DAILY cap 07/15/18 01/07/20 History mcg (1,000 unit) capsule donepezil 10 mg tablet 10 mg PO QAM 07/15/18 01/07/20 History montelukast 10 mg tablet 10 mg PO QAM 07/15/18 01/07/20 History albuterol sulfate 1 - 2 puff INHALATION Q6H PRN 10/20/18 01/07/20 History atorvastatin 40 mg tablet 40 mg PO DAILY 05/26/19 01/07/20 History ferrous sulfate 325 mg (65 mg 325 mg PO DAILY tab 05/26/19 01/07/20 History iron) tablet prednisone 10 mg tablet 5 mg PO HS tab 05/26/19 01/07/20 History memantine 10 mg tablet 10 mg PO BID tab 08/03/19 01/07/20 History amoxicillin 875 mg-potassium 1 tab PO Q12H #20 tab 12/29/19 01/07/20 Rx clavulanate 125 mg tablet fluconazole 100 mg tablet 100 mg PO DAILY #10 tab 12/30/19 01/07/20 Rx azithromycin 250 mg tablet See Rx Instructions PO .COMPLEX #6 01/04/20 01/07/20 Rx tab prednisone 10 mg tablet See Rx Instructions PO DAILY #36 01/04/20 01/07/20 Rx tab sodium chloride 7 % for 4 ml INH BID #240 ml 01/04/20 01/07/20 Rx nebulization codeine-guaifenesin 5 ml PO Q6H PRN 01/07/20 01/07/20 History cyanocobalamin (vitamin B-12) 1,000 mcg IM MONTHLY 01/07/20 01/07/20 History metformin 1,000 mg PO QAM 01/07/20 01/07/20 History pantoprazole 40 mg PO QAM 01/07/20 01/07/20 History ustekinumab [Stelara] 90 mg SUBCUT .Q3 MONTHS 01/07/20 01/07/20 History venlafaxine 150 mg PO QAM 01/07/20 01/07/20 History albuterol sulfate 2.5 mg INH .COMPLEX PRN 01/11/20 01/11/20 History fluoxetine 20 mg capsule 20 mg PO .COMPLEX 01/11/20 01/11/20 History gabapentin 100 mg capsule 100 mg PO DAILY 01/11/20 01/11/20 History lidocaine 5 % topical patch 1 patch TOP DAILY 01/11/20 01/11/20 History metformin 500 mg tablet 500 mg PO DAILY tab 01/11/20 01/11/20 History umeclidinium 62.5 mcg-vilanterol 1 puffs INH DAILY 01/11/20 01/11/20 History 25 mcg/actuation powdr for inhalation Patient History Social History Preferred Language: Albanian Communication Ability: Effective Visual Impairment: No Limitations Scheduling Representative Required: No Beliefs That Will Affect Care: None marital status: Life Partner Current Living Situation: Family and Significant Other Current Living Situation Comment: son, daughter, and SO. Other Information That Helps Us Care for You: No Feels Safe at Home: Yes Safety Concerns: Feels Safe At This Time Smoking Status: Former smoker Tobacco Type: cigarettes ; Cigarettes Per Day: 30 ; Do You Dip or Chew Tobacco: No ; Second Hand Exposure: No ; Tobacco Cessation Education Requested by Patient: No Hx Alcohol Use: Yes Alcohol type: wine Hx Substance Use: No Review of Systems Review of Systems: All systems reviewed & are unremarkable except as noted in HPI & below Physical Exam Constitutional: WD/WN, vitals as above no acute distress Neck: trachea midline, no thyromegaly Respiratory: Auscultation: + wheezes; no crackles Gastrointestinal (Abdomen): Inspection/Auscultation: abdomen normal to inspection and normal bowel sounds Percussion/Palpation: abdomen soft; abdomen nontender and no guarding Musculoskeletal: Extremities: extremities normal to inspection Skin: no rashes, warm and dry Neurologic: moves all extremities and awake; no focal motor deficits and not confused Psychiatric: A+Ox3, euthymic affect Results & Data Vital Signs (Past 12 Hours) Vital Signs Temp Pulse Pulse Resp BP BP Pulse Ox 01/11/20 15:56 130 H 01/11/20 15:52 36.5 C 108 H 20 119/81 96 01/11/20 11:22 36.6 C 102 H 16 110/78 97 01/11/20 11:19 92 H 01/11/20 07:17 36.4 C L 88 18 124/87 97 01/11/20 06:52 92 H 16 97 PG Care Time/CCT Total # of Minutes Spent Total Time Spent with Patient: Total time spent is greater than 50% in coordination of care (as documented) at patient's floor/unit and/or counseling patient: Coding Level of Care Code 91419 Inpt Consult Level 5 Diagnoses MISTY (acute kidney injury) N17.9 Diabetes mellitus, type 2 E11.9 Acute exacerbation of chronic obstructive airways disease J44.1 Metabolic acidosis E87.2
[2020-01-11] MEDS: HEPARIN SOD 5,000 UNIT/0.5 ML VIAL SQ SCH (20:36)
[2020-01-11] MEDS: CEFDINIR 300 MG CAP PO SCH (20:38)
[2020-01-12] MEDS ORDERED: INSULIN ASPART 100 UNITS/ML 3 ML PEN SC ONE (02:00)
[2020-01-12] MEDS: ONDANSETRON INJ 2 MG/ML 2 ML VIAL IV PRN (05:44)
[2020-01-12 06:39] LABS: Hematocrit (blood only) 44.3 % (37-47); Hemoglobin 14.4 g/dL (12.0-16.0); Mean Corpuscular Hemoglobin 26.2 pg (25-34); Mean Corpuscular Hgb Conc 32.5 g/dL (32-36); Mean Corpuscular Volume 80.7 fL (80-100); Mean Platelet Volume 9.4 fL (7.4-10.4); Platelet Count 404 K/uL (130-400); RDW Coefficient of Variation 16.2 % (11.5-14.5); RDW Standard Deviation 47.5 fL (36.4-46.3); Red Blood Count 5.49 M/uL (4.2-5.4); White Blood Count 27.02 K/uL (4.8-10.8)
[2020-01-12 07:19] LABS: BUN Creatinine Ratio 28.5 (10-20); Calcium 8.9 mg/dl (8.5-10.1); Creatinine Clr Calc Pharmacy 27.8 ml/min; Est GFR (African American) 27.9; Est GFR (Non-African American) 24.1; Magnesium 2.1 mg/dl (1.8-2.4); Phosphorus 5.6 mg/dl (2.5-4.9); Potassium 4.3 mmol/L (3.5-5.1)
[2020-01-12] MEDS ORDERED: NovoLIN-N (NPH) PER UNIT CHARGE SQ ONE (07:30)
[2020-01-12] MEDS: MEMANTINE HCL 10 MG TAB PO SCH ×2 (08:04→20:47)
[2020-01-12] MEDS: VENLAFAXINE HCL XR 150 MG CAPXR PO SCH (08:05)
[2020-01-12] MEDS: CHOLECALCIFEROL 1,000 UNITS 25 MCG TAB PO SCH (08:05)
[2020-01-12] MEDS: PANTOprazole 40 MG TAB PO SCH (08:05)
[2020-01-12] MEDS: CEFDINIR 300 MG CAP PO SCH ×2 (08:05→20:47)
[2020-01-12] MEDS: DONEPEZIL HCL 10 MG TAB PO SCH (08:06)
[2020-01-12] MEDS: MONTELUKAST SODIUM 10 MG TABLET PO SCH (08:06)
[2020-01-12] MEDS: FERROUS SULFATE 325 MG TAB PO SCH (08:07)
[2020-01-12] MEDS: ATORVASTATIN 40 MG TAB PO SCH (08:07)
[2020-01-12] MEDS: predniSONE 20 MG TAB PO SCH (08:07)
[2020-01-12] MEDS: FLUTICASONE FUROATE 100MCG 14 PUFFS/INHALER INH SCH (08:08)
[2020-01-12] MEDS: HEPARIN SOD 5,000 UNIT/0.5 ML VIAL SQ SCH ×2 (08:08→20:43)
[2020-01-12] MEDS: UMECLIDINIUM/VILANTEROL 62.5/25MCG 7 PUFFS/INHALER INH SCH (08:08)
[2020-01-12] MEDS: INSULIN ASPART 100 UNITS/ML 3 ML PEN SC SCH ×4 (08:11→20:43)
--- NOTE | 2020-01-12 09:24 | Pharmacy Report ---
Pharmacy Glycemic Short Note 2 - Date of Service January 12, 2020 - Glycemic Short BSG Results (Last 24 hours): 01/11/20 01/11/20 01/11/20 11:30 16:38 20:16 Glucose POC Glucose 121 H 238 H 186 H 01/12/20 01/12/20 01/12/20 02:21 06:32 07:29 Glucose 146 H POC Glucose 173 H 154 H OUTPATIENT ANTIDIABETIC REGIMEN: * Metformin 1000 mg po qAM and 500 mg po with lunch ASSESSMENT: * 49 yo F with T2DM admitted for CAP/COPD exacerbation (failed outpatient antibiotics) * PMH: adenocarcinoma s/p RUL wedge resection, aspergillus, COPD, Crohn's s/p ileostomy, HTN, DM2, hypothyroidism * Prednisone continues at 60 mg this AM * Significant hyperglycemia >200 mg/dL x2 noted yesterday evening - same as trend as previous day. Prednisone in AM likely the cause, with increased prednisone effect with lunch and dinner causing dinner and HS BSG's to be elevated. Will tighten CHO ratio at lunch and dinner. PLAN FOR INPATIENT GLYCEMIC CONTROL: * Hold outpatient oral diabetes medications * Basal insulin * NPH 15 units SQ x1 * Bolus insulin * NovoLog per scale ACHS or Q6hrs while NPO * Goal Range: Low 110 mg/dL - High 140 mg/dL * Correction Factor: 30 mg/dL/unit * Carb ratio: 10 g CHO/unit with breakfast, HS and 8 g CHO/unit with lunch, dinner PLAN FOR DISCHARGE: * Continue home metformin, assuming no contraindications at discharge and assuming eGFR >45 mL/min
--- NOTE | 2020-01-12 09:37 | Electrocardiogram Report ---
Test Reason : Blood Pressure : / mmHG Vent. Rate : 099 BPM Atrial Rate : 099 BPM P-R Int : 134 ms QRS Dur : 082 ms QT Int : 336 ms P-R-T Axes : 060 033 069 degrees QTc Int : 431 ms Normal sinus rhythm Normal ECG When compared with ECG of 09-JAN-2020 16:58, No significant change was found Confirmed by Kali Coon ([id number]) on 01/12/2020 9:36:48 AM Referred By: REFERRED SELF Confirmed By:Kali Coon
[2020-01-12] MEDS: DOXYCYCLINE HYCLATE 100 MG CAP PO SCH ×2 (10:09→21:45)
--- NOTE | 2020-01-12 11:57 | Nephrology Progress Note ---
Date of Service January 12, 2020 Assessment & Plan (1) MISTY (acute kidney injury): 49-year-old female with past medical history stage III CKD, well controlled hypertension diabetes, admitted to the hospital with COPD exacerbation and CAP with failed outpatient antibiotic. Baseline creatinine v ariable from 1.2-1.5 renal function was at baseline on admission, developed MISTY over last 3 days and renal function has been progressively worsening. Acute kidney injury could be related to IV contrast exposure or hemodynamically mediated, with her history of recurrent acute kidney injury. Unlikely any glomerular disease or interstitial nephritis with benign urine exam. Renal function continues to worsen without to further improvement, creatinine up to 2.3. Blood pressure relatively low but asymptomatic. No sign of volume overload. --start normal saline at 100 mL/hour --advise to keep well hydrated avoid nephrotoxic medications, okay to continue on lisinopril --if renal function continues to worsen rapidly will consider serological workup however like to wait at this time Will follow (2) Diabetes mellitus, type 2: (3) Acute exacerbation of chronic obstructive airways disease: (4) Metabolic acidosis: Review of Systems Review of Systems: All systems reviewed & are unremarkable except as noted in HPI & below Physical Exam Constitutional: WD/WN, vitals as above no acute distress Respiratory: normal respiratory effort, lungs clear to auscultation Cardiovascular: RRR, no murmur, no edema Skin: no rashes, warm and dry Neurologic: no focal motor deficits and not confused Psychiatric: A+Ox3, euthymic affect Results & Data Vital Signs (Past 12 Hours) Vital Signs Temp Pulse Pulse Resp BP BP Pulse Ox 01/12/20 11:37 36.3 C L 97 H 18 105/70 97 01/12/20 08:15 91 H 01/12/20 07:10 36.3 C L 92 H 18 105/74 99 01/12/20 04:06 36.4 C L 97 H 20 92/62 L 96 01/12/20 00:32 96/61 L 01/12/20 00:29 99 H PG Care Time/CCT Total # of Minutes Spent Total Time Spent with Patient: Total time spent is greater than 50% in coordination of care (as documented) at patient's floor/unit and/or counseling patient: Coding Level of Care Code 93879 Subseq Hosp Care Lvl 3 Diagnoses MISTY (acute kidney injury) N17.9 Diabetes mellitus, type 2 E11.9 Acute exacerbation of chronic obstructive airways disease J44.1 Metabolic acidosis E87.2
[2020-01-12] MEDS: SODIUM CHLORIDE 0.9% 500 ML IV SCH ×2 (12:38→18:00)
--- NOTE | 2020-01-12 13:28 | Hospitalist Progress Note ---
Date of Service January 12, 2020 Assessment & Plan (1) Acute exacerbation of chronic obstructive airways disease: CT chest on 01/06 showed mild tree-in-bud; concerning for infection. - Treating with cefdinir + doxycycline PO, prednisone. - At baseline O2 requirement of 2L QHS. - Continue Singulair, albuterol PRN - COVID discussed with infection control team - low likelihood, testing eschewed. - Added Mucomyst 10% nebulizers in conversation with pulmonology. (2) Pneumonia: - As above (3) MISTY (acute kidney injury): Baseline Cr ~1.2, eGFR ~50-55. - Was bouncing around 1.6 this admission. - Up to 2.0 on 01/10 -> Possibly contrast-induced nephropathy. - Follows with Dr. Salgado as outpatient; seen by nephrology. - Worse today at 2.3. Started on IV fluids. Hold ACEi. (4) Diabetes mellitus, type 2: A1c was 7.8% this admission. - ISS with PureWRXuGet In ACHS - Glycemic pharmacy consulted while on high-dose steroids, glucose running in high 200s at time of admission, patient reports poor oral intake secondary to URI. - Holding metformin - Blood sugars stable ~150-240 in last 24 hours. (5) Hypothyroidism: TSH was last checked in 2017 in our chart. No indicates of hypo- or hyperthyroidism. - Continue levothyroxine (6) Crohns disease: S/p ileostomy creation, diagnosed since in her 20s, [facility] with [facility]. 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 Jeter on 12/05/2018. No indication of recurrence. - No inpatient needs (8) DVT prophylaxis: Lovenox 40mg SQ QHS Admission and Anticipated Discharge Date Admission Date: January 07, 2020 Subjective Feeling some better, until she stands up, then still very short of breath. Reports no fevers/chills, chest pain, abdominal pain, nausea, or vomiting. Physical Exam Constitutional: WD/WN, vitals as above Eyes: EOM intact bilaterally; no conjunctival abnormality ENMT: external ear and nose normal, oropharynx normal Neck: trachea midline, no thyromegaly normal visual inspection Respiratory: no respiratory distress Auscultation: + wheezes Cardiovascular: RRR, no murmur, no edema Gastrointestinal (Abdomen): Inspection/Auscultation: abdomen normal to inspection; abdomen not distended Musculoskeletal: no cyanosis or clubbing, extremities motor strength 5/5 Skin: no rashes, warm and dry Neurologic: moves all extremities and awake Psychiatric: Orientation: alert, oriented to person and cooperative Results & Data Results & Data ([facility]) Vital Signs (Past 12 Hours) Vital Signs Temp Pulse Pulse Resp BP BP Pulse Ox 01/12/20 11:37 36.3 C L 97 H 18 105/70 97 01/12/20 08:15 91 H 01/12/20 07:10 36.3 C L 92 H 18 105/74 99 01/12/20 04:06 36.4 C L 97 H 20 92/62 L 96 PG Care Time/CCT Total # of Minutes Spent Total Time Spent with Patient: Total time spent is greater than 50% in coordination of care (as documented) at patient's floor/unit and/or counseling patient: Coding Level of Care Code 28869 Subseq Hosp Care Lvl 3 Diagnoses Acute exacerbation of chronic obstructive airways disease J44.1 Pneumonia J18.9 MISTY (acute kidney injury) N17.9 Diabetes mellitus, type 2 E11.9 Hypothyroidism E03.9 Crohns disease K50.90 Primary mucinous adenocarcinoma of lung C34.90 DVT prophylaxis Z29.9
[2020-01-12] MEDS: ALBUT/IPRATROP 3MG/0.5MG NEB 3 ML VIAL NEB PRN (19:38)
[2020-01-12] MEDS: ACETYLCYSTEINE 10% INHAL SOLN 4 ML **DISPENSED BY RESP. INH SCH (19:38)
[2020-01-12] MEDS ORDERED: Nursing to Pharmacy Communication ONE (19:39)
[2020-01-12] MEDS: GUAIFENESIN/CODEINE 200MG/20MG 10ML UDC PO PRN (21:46)
[2020-01-12] MEDS: SODIUM CHLORIDE 0.9% 1000ML 1,000 ML IV SCH (23:09)
[2020-01-13 06:17] LABS: Basophils # (auto) 0.02 K/uL (0-0.2); Basophils % (auto) 0.1 %; Eosinophils # (auto) 0.06 K/uL (0-0.5); Eosinophils % (auto) 0.3 %; Hematocrit (blood only) 40.7 % (37-47); Hemoglobin 12.9 g/dL (12.0-16.0); Immature Granulocytes # (auto) 0.45 K/uL (0.00-0.02); Immature Granulocytes % (auto) 2.1 %; Lymphocytes # (auto) 2.42 K/uL (1.2-3.4); Lymphocytes % (auto) 11.1 %; Mean Corpuscular Hemoglobin 25.7 pg (25-34); Mean Corpuscular Hgb Conc 31.7 g/dL (32-36); Mean Corpuscular Volume 81.1 fL (80-100); Mean Platelet Volume 9.4 fL (7.4-10.4); Monocytes # (auto) 0.93 K/uL (0.11-0.59); Monocytes % (auto) 4.3 %; Neutrophils # (auto) 17.86 K/uL (1.4-6.5); Neutrophils % (auto) 82.1 %; Platelet Count 345 K/uL (130-400); RDW Coefficient of Variation 16.3 % (11.5-14.5); RDW Standard Deviation 47.9 fL (36.4-46.3); Red Blood Count 5.02 M/uL (4.2-5.4); White Blood Count 21.74 K/uL (4.8-10.8)
[2020-01-13 06:25] LABS: Prothrombin Time 10.6 Seconds (9.0-12.0)
[2020-01-13] MEDS: ALBUT/IPRATROP 3MG/0.5MG NEB 3 ML VIAL NEB PRN ×2 (06:53→19:28)
[2020-01-13] MEDS: ACETYLCYSTEINE 10% INHAL SOLN 4 ML **DISPENSED BY RESP. INH SCH ×2 (06:53→19:28)
[2020-01-13 06:57] LABS: BUN Creatinine Ratio 30.6 (10-20); Calcium 8.2 mg/dl (8.5-10.1); Creatinine Clr Calc Pharmacy 34.6 ml/min; Est GFR (African American) 36.1; Est GFR (Non-African American) 31.2; Magnesium 1.8 mg/dl (1.8-2.4)
[2020-01-13] MEDS: UMECLIDINIUM/VILANTEROL 62.5/25MCG 7 PUFFS/INHALER INH SCH (08:05)
[2020-01-13] MEDS: ATORVASTATIN 40 MG TAB PO SCH (08:06)
[2020-01-13] MEDS: MEMANTINE HCL 10 MG TAB PO SCH ×2 (08:06→20:23)
[2020-01-13] MEDS: FERROUS SULFATE 325 MG TAB PO SCH (08:06)
[2020-01-13] MEDS: CHOLECALCIFEROL 1,000 UNITS 25 MCG TAB PO SCH (08:06)
[2020-01-13] MEDS: FLUTICASONE FUROATE 100MCG 14 PUFFS/INHALER INH SCH (08:07)
[2020-01-13] MEDS: CEFDINIR 300 MG CAP PO SCH ×2 (08:07→20:23)
[2020-01-13] MEDS: predniSONE 20 MG TAB PO SCH (08:07)
[2020-01-13] MEDS: DONEPEZIL HCL 10 MG TAB PO SCH (08:07)
[2020-01-13] MEDS: PANTOprazole 40 MG TAB PO SCH (08:07)
[2020-01-13] MEDS: HEPARIN SOD 5,000 UNIT/0.5 ML VIAL SQ SCH ×2 (08:08→20:23)
[2020-01-13] MEDS: VENLAFAXINE HCL XR 150 MG CAPXR PO SCH (08:08)
[2020-01-13] MEDS: MONTELUKAST SODIUM 10 MG TABLET PO SCH (08:08)
[2020-01-13] MEDS: INSULIN ASPART 100 UNITS/ML 3 ML PEN SC SCH ×5 (08:14→20:24)
[2020-01-13] MEDS: SODIUM CHLORIDE 0.9% 1000ML 1,000 ML IV SCH (08:15)
--- NOTE | 2020-01-13 08:23 | Pharmacy Report ---
Pharmacy Glycemic Short Note 2 - Date of Service January 13, 2020 - Glycemic Short BSG Results (Last 24 hours): 01/12/20 01/12/20 01/12/20 11:26 16:25 20:34 Glucose POC Glucose 222 H 212 H 208 H 01/13/20 01/13/20 05:58 07:34 Glucose 144 H POC Glucose 134 H OUTPATIENT ANTIDIABETIC REGIMEN: * Metformin 1000 mg po qAM and 500 mg po with lunch ASSESSMENT: 01/12: * Patient received total of 49 units of insulin yesterday, of which 15 were basal insulin/NPH * Fasting BSG w/in range at 144 mg/dL - continue same NPH to help cover steroids (pred 60 mg daily) * BSGs elevated yesterday [phone] therefore will tighten CF/CR PLAN FOR INPATIENT GLYCEMIC CONTROL: * Hold outpatient oral diabetes medications * Basal insulin * NPH 15 units SQ x1 * Bolus insulin * NovoLog per scale ACHS or Q6hrs while NPO * Goal Range: Low 110 mg/dL - High 140 mg/dL * Correction Factor: 25 mg/dL/unit * Carb ratio: 7 g CHO/unit PLAN FOR DISCHARGE: * Continue home metformin, assuming no contraindications at discharge and assuming eGFR >45 mL/min
[2020-01-13] MEDS ORDERED: NovoLIN-N (NPH) PER UNIT CHARGE SQ ONE (08:30)
[2020-01-13] MEDS: DOXYCYCLINE HYCLATE 100 MG CAP PO SCH ×2 (10:30→21:53)
--- NOTE | 2020-01-13 10:35 | Nephrology Progress Note ---
Date of Service January 13, 2020 Assessment & Plan (1) MISTY (acute kidney injury): 49-year-old female with past medical history stage III CKD, well controlled hypertension diabetes, admitted to the hospital with COPD exacerbation and CAP with failed outpatient antibiotic. Baseline creatinine va riable from 1.2-1.5 renal function was at baseline on admission, developed MISTY over last 3 days and renal function has been progressively worsening. Acute kidney injury could be related to IV contrast exposure or hemodynamically mediated, with her history of recurrent acute kidney injury. Renal function slightly improved with IV fluid, electrolyte, volume status blood pressure acceptable. --continue normal saline at 100 mL/hour --advise to keep well hydrated avoid nephrotoxic medications, okay to continue on lisinopril --renal panel a.m., if renal function stays stable, IV fluid can be dis continued and okay to be discharged Will follow (2) Diabetes mellitus, type 2: (3) Acute exacerbation of chronic obstructive airways disease: (4) Metabolic acidosis: Subjective Yu was seen examined in his room this morning. Overall she is feeling well although continues to have some shortness of breath. Volume status acceptable with no sign of volume overload. Renal function slightly improved to creatinine 1.8, electrolyte acceptable. Blood pressure stable. Remained nonoliguric. Review of Systems Review of Systems: All systems reviewed & are unremarkable except as noted in HPI & below Physical Exam Constitutional: WD/WN, vitals as above no acute distress Respiratory: normal respiratory effort, lungs clear to auscultation Cardiovascular: RRR, no murmur, no edema Skin: no rashes, warm and dry Neurologic: awake; no focal motor deficits and not confused Psychiatric: A+Ox3, euthymic affect Results & Data Vital Signs (Past 12 Hours) Vital Signs Temp Pulse Pulse Resp BP Pulse Ox 01/13/20 06:55 36.6 C 91 H 20 120/78 98 01/13/20 06:54 95 H 14 99 01/13/20 03:50 36.5 C 95 H 20 111/67 98 01/13/20 00:34 100 H 01/12/20 23:18 36.5 C 99 H 20 115/73 97 PG Care Time/CCT Total # of Minutes Spent Total Time Spent with Patient: Total time spent is greater than 50% in coordination of care (as documented) at patient's floor/unit and/or counseling patient: Coding Level of Care Code 01114 Subseq Hosp Care Lvl 3 Diagnoses MISTY (acute kidney injury) N17.9 Diabetes mellitus, type 2 E11.9 Acute exacerbation of chronic obstructive airways disease J44.1 Metabolic acidosis E87.2
[2020-01-13 10:56] LABS: Folate (Folic Acid) 15.06 ng/ml (>5.38)
--- NOTE | 2020-01-13 11:43 | Pulmonary Consultation ---
Date of Consultation January 13, 2020 Assessment & Plan (1) Acute exacerbation of chronic obstructive airways disease: --COPD exacerbation Likely secondary to right lower lobe pneumonia There is a question of aspiration in her case given that she says she always coughs whenever she eats. Denies any odynophagia or dysphagia. Can consider swallow eval Continue with inhaled bronchodilator therapy. Start tapering steroids to 40 mg for 3 days followed by 20 mg for 2 days and then stop. Patient states that she takes Anoro inhaler at home. I looked at the medication at home she was given a sample of Trelegy. (Laba/lama/ICS) inhaler I think trilogy would be a better option for her given her COPD with multiple exacerbations and use of steroids more than 2 times in a year. --Exertional shortness of breath This is multifactorial Her underlying COPD is likely playing a role on top of her body habitus. She has no lower extremity edema, no lung crackles appreciated on physical exam. On exertion her saturation is maintained above 88%. This seems like deconditioning. But agree with 2D echo to be done. 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 Patient's CAT scan from that time as well as recent CAT scan does not show any signs of fungal infection. This was most likely colonization. Patient was treated with voriconazole for 3 months by the bi architect. There is no indication to look for fungal infection looking at the CAT scan right now. Plan: Follow-up ABG, IgE level. Taper steroids. Physical therapy. 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 Patient has been given multiple doses of antibiotics as an outpatient but did not help. Patient follows up outpatient with [facility] Isidro. Pulmonary was consulted as patient was still complaining of exertional shortness of breath. Patient has been on steroids since the time of admission. Patient denies any fever or chills. Denies any dysuria, no diarrhea, no blurry vision, no headache, no nausea, no vomiting. Denies any chest pain. Complains of chest heaviness. Does have cough. Patient states the cough is usually present whenever she eats. Denies any odynophagia or dysphagia. There is no diurnal changes to her cough. Denies any body aches. Patient denies any recent travel history. Denies any recent contact with any person who have been in endemic area of Covid-19. Patient denies any weight loss, no night sweats. Patient has been on chronic prednisone on and off for very long time Social history: [id number] smoking history, 1 and half pack per day since age of 13 quit approximately 10-12 years ago. Social alcohol, denies any illicit drug use. Has 4 dogs at home which is not allergic to. Has cats outside her home not allergic to them. No birds at home, no poultry nearby. No farm nearby. No family history of any lung cancer. No family history of any blood cancer. Allergies Allergy/AdvReac Type Severity Reaction Status Date / Time No Known Allergies Allergy Verified 01/07/20 16:26 Home Medications Home Medications Medication Instructions Recorded Confirmed Type cholecalciferol (vitamin D3) 25 6,000 units PO DAILY cap 07/15/18 01/07/20 History mcg (1,000 unit) capsule donepezil 10 mg tablet 10 mg PO QAM 07/15/18 01/07/20 History montelukast 10 mg tablet 10 mg PO QAM 07/15/18 01/07/20 History albuterol sulfate 1 - 2 puff INHALATION Q6H PRN 10/20/18 01/07/20 History atorvastatin 40 mg tablet 40 mg PO DAILY 05/26/19 01/07/20 History ferrous sulfate 325 mg (65 mg 325 mg PO DAILY tab 05/26/19 01/07/20 History iron) tablet prednisone 10 mg tablet 5 mg PO HS tab 05/26/19 01/07/20 History memantine 10 mg tablet 10 mg PO BID tab 08/03/19 01/07/20 History amoxicillin 875 mg-potassium 1 tab PO Q12H #20 tab 12/29/19 01/07/20 Rx clavulanate 125 mg tablet fluconazole 100 mg tablet 100 mg PO DAILY #10 tab 12/30/19 01/07/20 Rx azithromycin 250 mg tablet See Rx Instructions PO .COMPLEX #6 01/04/20 01/07/20 Rx tab prednisone 10 mg tablet See Rx Instructions PO DAILY #36 01/04/20 01/07/20 Rx tab sodium chloride 7 % for 4 ml INH BID #240 ml 01/04/20 01/07/20 Rx nebulization codeine-guaifenesin 5 ml PO Q6H PRN 01/07/20 01/07/20 History cyanocobalamin (vitamin B-12) 1,000 mcg IM MONTHLY 01/07/20 01/07/20 History metformin 1,000 mg PO QAM 01/07/20 01/07/20 History pantoprazole 40 mg PO QAM 01/07/20 01/07/20 History ustekinumab [Stelara] 90 mg SUBCUT .Q3 MONTHS 01/07/20 01/07/20 History venlafaxine 150 mg PO QAM 01/07/20 01/07/20 History albuterol sulfate 2.5 mg INH .COMPLEX PRN 01/11/20 01/11/20 History fluoxetine 20 mg capsule 20 mg PO .COMPLEX 01/11/20 01/11/20 History gabapentin 100 mg capsule 100 mg PO DAILY 01/11/20 01/11/20 History lidocaine 5 % topical patch 1 patch TOP DAILY 01/11/20 01/11/20 History metformin 500 mg tablet 500 mg PO DAILY tab 01/11/20 01/11/20 History umeclidinium 62.5 mcg-vilanterol 1 puffs INH DAILY 01/11/20 01/11/20 History 25 mcg/actuation powdr for inhalation Patient History Medical History (Updated 01/13/20 @ 11:40 by Nakia Mahmood MD) Acid reflux Anxiety (Chronic) Asthma COPD (chronic obstructive pulmonary disease) Crohns disease (Chronic) Depressive disorder (Chronic) Diabetes mellitus, type 2 Former smoker (Resolved) History of pancreatitis Hypothyroidism (Chronic) Left lumbar radiculitis (Chronic) Lumbago (Chronic) Lung cancer Lung nodule Metabolic acidosis Myofascial pain (Chronic) On home oxygen therapy 2L O2 CONT. Osteoarthritis Psoriasis (Chronic) Sacroiliitis (Chronic) Short-term memory loss Shortness of breath PROBLEM OVER LAST THREE MONTHS/NEEDS TO REST AFTER 5 STEPS Surgical History History of adenoidectomy History of bilateral tubal ligation History of bowel resection X 2 (ILEOSTOMY) History of bronchoscopy 10/31/2018 [facility]. MAC 3, Grade 1 view. 8.5 ETT. no issues. History of carpal tunnel release of both wrists History of cholecystectomy History of colonoscopy History of herniorrhaphy History of ileostomy (Resolved) X2 History of lobectomy of lung LUNG MASS REMOVED History of lung surgery wedge of RUL 2/6 History of myringotomy History of thyroidectomy, subtotal History of tonsillectomy History of tooth extraction S/P thyroidectomy (Deleted 01/07/14) Social History Preferred Language: Tajik Communication Ability: Effective Visual Impairment: No Limitations Associate Merchandiser Required: No Beliefs That Will Affect Care: None marital status: Life Partner Current Living Situation: Family and Significant Other Current Living Situation Comment: son, daughter, and SO. Other Information That Helps Us Care for You: No Feels Safe at Home: Yes Safety Concerns: Feels Safe At This Time Smoking Status: Former smoker Tobacco Type: cigarettes ; Cigarettes Per Day: 30 ; Do You Dip or Chew Tobacco: No ; Second Hand Exposure: No ; Tobacco Cessation Education Requested by Patient: No Hx Alcohol Use: Yes Alcohol type: wine Hx Substance Use: No Review of Systems Review of Systems: All systems reviewed & are unremarkable except as noted in HPI & below Physical Exam Physical Exam: Constitutional: No acute distress, cushingoid features HEENT: EOMI, PERRLA, moist mucous membranes, Mallampati 2, thick neck Respiratory system: Good air entry bilaterally, no crackles, no rhonchi, minimal expiratory wheeze bilaterally CVS: S1-S2 positive, no murmurs or gallops Abdomen: Soft, nontender, nondistended, positive bowel sounds x4, positive ileostomy, obese Extremities: +2 pulses bilaterally radialis/ dorsalis pedis, no cyanosis, no edema Neuro: Awake alert oriented x3 Psych: Normal mood and affect G/U: No Dennis At the time of examination patient was saturating 98% on room air with heart rate of 107 at rest. Skin: no rashes, warm and dry Lymphatic: no cervical or axillary lymphadenopathy Results & Data Results & Data ([facility]) Vital Signs (Past 12 Hours) Vital Signs Temp Pulse Pulse Resp BP Pulse Ox 01/13/20 06:55 36.6 C 91 H 20 120/78 98 01/13/20 06:54 95 H 14 99 01/13/20 03:50 36.5 C 95 H 20 111/67 98 01/13/20 00:34 100 H 01/12/20 23:18 36.5 C 99 H 20 115/73 97 01/13/20 05:58 01/13/20 05:58 CTA chest done 01/07/2020 personally reviewed:Patient has some groundglass and tree-in-bud opacities appreciated in the right lower lobe. Centrilobular emphysema as well as right upper lobectomy appreciated. No significant mediastinal lymphadenopathy. Chest x-ray from 01/11/2020 also personally reviewed. PA/lateral view. Good inspiratory effort. There is volume loss appreciated on the right side. With elevation of the dome of the right diaphragm. No clear infiltrate appreciated. PG Care Time/CCT Total # of Minutes Spent Total Time Spent with Patient: Total time spent is greater than 50% in branch operations coordinator rdination of care (as documented) at patient's floor/unit and/or counseling patient: Coding Level of Care Code 68399 Inpt Consult Level 5 Diagnoses Acute exacerbation of chronic obstructive airways disease J44.1 Pneumonia J18.9 DOMINGO (obstructive sleep apnea) G47.33
[2020-01-13 11:44] LABS: Allen Test Pos (Pos); HCO3 ABG 11 mmol/L (19-24); Oxygen Saturation ABG 97.2 % (90-95); PCO2 ABG 25 mmHg (35-46); PO2 ABG 99 mmHg (80-95); pH ABG 7.27 (7.35-7.45)
--- NOTE | 2020-01-13 12:38 | XCELERA ---
[id number] \\[email or web address]\[id number]___[id number]
--- NOTE | 2020-01-13 14:05 | Hospitalist Progress Note ---
Date of Service January 13, 2020 Assessment & Plan (1) Acute exacerbation of chronic obstructive airways disease: CT chest on 01/06 showed mild tree-in-bud; concerning for infection. - Treating with cefdinir + doxycycline PO, prednisone. - At baseline O2 requirement of 2L QHS. - Continue Singulair, albuterol PRN - COVID discussed with infection control team - low likelihood, testing eschewed. - Added Mucomyst 10% nebulizers in conversation with pulmonology on 01/11. - Still with shortness of breath; discussed with pulmonology. Will add ICS to her inhaler regimen and begin tapering oral steroids. PT/OT for deconditioning. (2) Pneumonia: - As above (3) MISTY (acute kidney injury): Baseline Cr ~1.2, eGFR ~50-55. - Was bouncing around 1.6 this admission. - Up to 2.0 on 01/10 -> Possibly contrast-induced nephropathy. - Follows with Dr. Salgado as outpatient; seen by nephrology. - Improved today at 1.85. Continue to hold ACEi; held IV fluids for concern for volume overload. (4) Diabetes mellitus, type 2: A1c was 7.8% this admission. - ISS with [employer] [facility] - Glycemic pharmacy consulted while on high-dose steroids, glucose running in high 200s at time of admission, patient reports poor oral intake secondary to URI. - Holding metformin - Blood sugars stable ~150-210 in last 24 hours. Should improve as we taper steroids. (5) Hypothyroidism: TSH was last checked in 2017 in our chart. No indicates of hypo- or hyperthyroidism. - Continue levothyroxine - Check TSH in the AM (6) Crohns disease: S/p ileostomy creation, diagnosed since in her 20s, follows with [facility]. 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 Jeter on 12/05/2018. No indication of recurrence. - No inpatient needs (8) DVT prophylaxis: Heparin 5000 units SQ Q12h Admission and Anticipated Discharge Date Admission Date: January 07, 2020 Subjective Some coughing overnight. Her breathing at baseline is a bit better. Reports no fevers/chills, chest pain, abdominal pain, nausea, or vomiting. Physical Exam Constitutional: WD/WN, vitals as above Eyes: EOM intact bilaterally; no conjunctival abnormality ENMT: external ear and nose normal, oropharynx normal Neck: trachea midline, no thyromegaly normal visual inspection Respiratory: no respiratory distress Auscultation: + wheezes Cardiovascular: RRR, no murmur, no edema Gastrointestinal (Abdomen): Inspection/Auscultation: abdomen normal to inspection; abdomen not distended Musculoskeletal: no cyanosis or clubbing, extremities motor strength 5/5 Skin: no rashes, warm and dry Neurologic: moves all extremities and awake Psychiatric: Orientation: alert, oriented to person and cooperative Results & Data Results & Data ([facility]) Vital Signs (Past 12 Hours) Vital Signs Temp Pulse Resp BP Pulse Ox 01/13/20 11:57 36.7 C 106 H 18 126/96 96 01/13/20 06:55 36.6 C 91 H 20 120/78 98 01/13/20 06:54 95 H 14 99 01/13/20 03:50 36.5 C 95 H 20 111/67 98 PG Care Time/CCT Total # of Minutes Spent Total Time Spent with Patient: Total time spent is greater than 50% in coordination of care (as documented) at patient's floor/unit and/or counseling p atient: Coding Level of Care Code 84364 Subseq Hosp Care Lvl 2 Diagnoses Acute exacerbation of chronic obstructive airways disease J44.1 Pneumonia J18.9 MISTY (acute kidney injury) N17.9 Diabetes mellitus, type 2 E11.9 Hypothyroidism E03.9 Crohns disease K50.90 Primary mucinous adenocarcinoma of lung C34.90 DVT prophylaxis Z29.9
--- NOTE | 2020-01-13 14:10 | Electrocardiogram Report ---
Test Reason : Blood Pressure : / mmHG Vent. Rate : 107 BPM Atrial Rate : 107 BPM P-R Int : 140 ms QRS Dur : 080 ms QT Int : 310 ms P-R-T Axes : 060 029 136 degrees QTc Int : 413 ms Sinus tachycardia Nonspecific ST and T wave abnormality Abnormal ECG When compared with ECG of 11-JAN-2020 16:43, Nonspecific T wave abnormality now evident in Inferior leads Nonspecific T wave abnormality, worse in Lateral leads Confirmed by Kali Coon ([id number]) on 01/13/2020 2:10:26 PM Referred By: REFERRED SELF Confirmed By:Kali Coon
[2020-01-14] MEDS: ACETAMINOPHEN 325 MG TAB PO PRN (00:21)
[2020-01-14 06:13] LABS: Hematocrit (blood only) 37.7 % (37-47); Hemoglobin 11.9 g/dL (12.0-16.0); Mean Corpuscular Hemoglobin 25.5 pg (25-34); Mean Corpuscular Hgb Conc 31.6 g/dL (32-36); Mean Corpuscular Volume 80.9 fL (80-100); Mean Platelet Volume 9.4 fL (7.4-10.4); Platelet Count 292 K/uL (130-400); RDW Coefficient of Variation 16.5 % (11.5-14.5); RDW Standard Deviation 48.5 fL (36.4-46.3); Red Blood Count 4.66 M/uL (4.2-5.4); White Blood Count 15.09 K/uL (4.8-10.8)
[2020-01-14] MEDS: ACETYLCYSTEINE 10% INHAL SOLN 4 ML **DISPENSED BY RESP. INH SCH ×2 (07:00→19:23)
[2020-01-14] MEDS: ALBUT/IPRATROP 3MG/0.5MG NEB 3 ML VIAL NEB PRN ×2 (07:00→19:23)
[2020-01-14 07:15] LABS: BUN Creatinine Ratio 30.8 (10-20); Calcium 8.4 mg/dl (8.5-10.1); Creatinine Clr Calc Pharmacy 46.3 ml/min; Est GFR (African American) 51.2; Est GFR (Non-African American) 44.2; Magnesium 1.7 mg/dl (1.8-2.4); Potassium 3.8 mmol/L (3.5-5.1)
[2020-01-14 07:23] LABS: Phosphorus 4.1 mg/dl (2.5-4.9); Thyroid Stimulating Hormone 0.138 uIu/ml (0.300-4.500)
[2020-01-14 07:36] LABS: T4 Free Thyroxine 0.88 ng/dl (0.8-1.6)
[2020-01-14] MEDS: UMECLIDINIUM/VILANTEROL 62.5/25MCG 7 PUFFS/INHALER INH SCH (07:43)
[2020-01-14] MEDS: VENLAFAXINE HCL XR 150 MG CAPXR PO SCH (07:44)
[2020-01-14] MEDS: FLUTICASONE FUROATE 100MCG 14 PUFFS/INHALER INH SCH (07:44)
[2020-01-14] MEDS: DONEPEZIL HCL 10 MG TAB PO SCH (07:44)
[2020-01-14] MEDS: predniSONE 20 MG TAB PO SCH (07:45)
[2020-01-14] MEDS: ATORVASTATIN 40 MG TAB PO SCH (07:45)
[2020-01-14] MEDS: CEFDINIR 300 MG CAP PO SCH ×2 (07:45→20:41)
[2020-01-14] MEDS: MEMANTINE HCL 10 MG TAB PO SCH ×2 (07:45→20:41)
[2020-01-14] MEDS: FERROUS SULFATE 325 MG TAB PO SCH (07:45)
[2020-01-14] MEDS: DOXYCYCLINE HYCLATE 100 MG CAP PO SCH ×2 (07:46→22:02)
[2020-01-14] MEDS: PANTOprazole 40 MG TAB PO SCH (07:46)
[2020-01-14] MEDS: CHOLECALCIFEROL 1,000 UNITS 25 MCG TAB PO SCH (07:46)
[2020-01-14] MEDS: MONTELUKAST SODIUM 10 MG TABLET PO SCH (07:46)
[2020-01-14] MEDS: INSULIN ASPART 100 UNITS/ML 3 ML PEN SC SCH ×4 (07:52→20:45)
[2020-01-14] MEDS: HEPARIN SOD 5,000 UNIT/0.5 ML VIAL SQ SCH ×2 (07:54→20:45)
[2020-01-14] MEDS ORDERED: NovoLIN-N (NPH) PER UNIT CHARGE SQ ONE (09:00)
--- NOTE | 2020-01-14 10:58 | Nephrology Progress Note ---
Date of Service January 14, 2020 Assessment & Plan (1) MISTY (acute kidney injury): 49-year-old female with past medical history stage III CKD, well controlled hypertension diabetes, admitted to the hospital with COPD exacerbation and CAP with failed outpatient antibiotic. Baseline creatinine va riable from 1.2-1.5 renal function was at baseline on admission, developed MISTY over last 3 days and renal function has been progressively worsening. Acute kidney injury could be related to IV contrast exposure or hemodynamically mediated, with her history of recurrent acute kidney injury. Renal function slightly improved with IV fluid, electrolyte, volume status blood pressure acceptable. Renal function continues to improve, getting close to b/l. BP. volume status acceptable. --DC IV, encourage po intake --advise to keep well hydrated avoid nephrotoxic medications, okay to continue on lisinopril --monitor renal function while inpatient, okay to be discharged with out pt F/U with Dr. Salgado in 6 to 8 weeks. Will follow (2) Diabetes mellitus, type 2: (3) Acute exacerbation of chronic obstructive airways disease: (4) Metabolic acidosis: Subjective Yu was seen examined in her room this morning. Overall she is feeling well although continues to have exertional shortness of breath. Volume status acceptable with no sign of volume overload. Renal function continues to improve, creatinine 1.7, electrolyte acceptable. Blood pressure stable. Remained nonoliguric. Review of Systems Review of Systems: All systems reviewed & are unremarkable except as noted in HPI & below Physical Exam Constitutional: WD/WN, vitals as above no acute distress Respiratory: normal respiratory effort, lungs clear to auscultation Auscultation: + wheezes; no crackles Cardiovascular: RRR, no murmur, no edema Skin: no rashes, warm and dry Neurologic: moves all extremities and awake; no focal motor deficits and not confused Psychiatric: A+Ox3, euthymic affect Results & Data Vital Signs (Past 12 Hours) Vital Signs Temp Pulse Pulse Resp BP Pulse Ox 01/14/20 07:33 36.5 C 86 16 136/85 98 01/14/20 07:26 83 01/14/20 07:00 86 16 98 01/14/20 04:07 36.3 C L 89 18 115/75 99 01/14/20 02:20 96 H 01/13/20 23:01 36.4 C L 97 H 18 119/76 98 PG Care Time/CCT Total # of Minutes Spent Total Time Spent with Patient: Total time spent is greater than 50% in coordination of care (as documented) at patient's floor/unit and/or counseling patient: Coding Level of Care Code 12751 Subseq Hosp Care Lvl 3 Diagnoses MISTY (acute kidney injury) N17.9 Diabetes mellitus, type 2 E11.9 Acute exacerbation of chronic obstructive airways disease J44.1 Metabolic acidosis E87.2
--- NOTE | 2020-01-14 11:32 | Pulmonology Progress Note ---
Date of Service January 14, 2020 Assessment & Plan (1) Acute exacerbation of chronic obstructive airways disease: --COPD exacerbation Likely secondary to right lower lobe pneumonia There is a question of aspiration in her case given that she says she always coughs whenever she eats. Denies any odynophagia or dysphagia. Can consider swallow eval Continue with inhaled bronchodilator therapy. Taper steroids to 40 mg for 3 days followed by 20 mg for 2 days and then stop. Patient states that she takes Anoro inhaler at home. I looked at the medication at home she was given a sample of Trelegy. (Laba/lama/ICS) inhaler I think trelegy would be a better option for her given her COPD with multiple exacerbations and use of steroids more than 2 times in a year. --Exertional shortness of breath This is multifactorial Her underlying COPD is likely playing a role on top of her body habitus. She has no lower extremity edema, no lung crackles appreciated on physical exam. On exertion her saturation is maintained above 88%. This seems like deconditioning. But agree with 2D echo to be done. 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 Patient's CAT scan from that time as well as recent CAT scan does not show any signs of fungal infection. This was most likely colonization. Patient was treated with voriconazole for 3 months by the bunch breaker machine operator. There is no indication to look for fungal infection looking at the CAT scan right now. Plan: ABG shows acidic pH with respiratory compensation this is likely to her metabolic acidosis. Metabolic acidosis given known more anion gap likely stemming from her underlying CKD. Would recommend starting the patient on bicarb p.o. nephrology already on board will defer the management to them. From pulmonary perspective patient is doing good. No further recommendation except as above. Will sign off. Please recall if needed. (2) Pneumonia: (3) DOMINGO (obstructive sleep apnea): Admission and Anticipated Discharge Date Admission Date: January 07, 2020 Subjective Patient seen and examined at bedside. No acute distress, no adverse events overnight. Patient did not try BiPAP overnight as she was complaining of headache. States that the shortness of breath is improved to some extent. Denies any chest pain, no dizziness, no headache at the time of examination, no nausea or vomiting. Good appetite. Patient was saturating 97% on room air with heart rate of 89 at rest. Review of Systems Review of Systems: All systems reviewed & are unremarkable except as noted in HPI & below Physical Exam Physical Exam: Constitutional: No acute distress, cushingoid features HEENT: EOMI, PERRLA, moist mucous membranes, Mallampati 2, thick neck Respiratory system: Good air entry bilaterally, no crackles, no rhonchi, no wheeze CVS: S1-S2 positive, no murmurs or gallops Abdomen: Soft, nontender, nondistended, positive bowel sounds x4, positive ileostomy, obese Extremities: +2 pulses bilaterally radialis/ dorsalis pedis, no cyanosis, no edema Neuro: Awake alert oriented x3 Psych: Normal mood and affect G/U: No Dennis Skin: no rashes, warm and dry Lymphatic: no cervical or axillary lymphadenopathy Results & Data Results & Data ([facility]) Vital Signs (Past 12 Hours) Vital Signs Temp Pulse Pulse Resp BP Pulse Ox 01/14/20 07:33 36.5 C 86 16 136/85 98 01/14/20 07:26 83 01/14/20 07:00 86 16 98 01/14/20 04:07 36.3 C L 89 18 115/75 99 01/14/20 02:20 96 H 01/14/20 05:50 01/14/20 05:50 01/13/20 11:31 ABG pH 7.27 L ABG pCO2 25 L ABG pO2 99 H ABG HCO3 11 L ABG O2 Saturation 97.2 H ABG Base Excess -14.0 L PG Care Time/CCT Total # of Minutes Spent Total Time Spent with Patient: Total time spent is greater than 50% in coord ination of care (as documented) at patient's floor/unit and/or counseling patient: Coding Level of Care Code 89750 Subseq Hosp Care Lvl 3 Diagnoses Acute exacerbation of chronic obstructive airways disease J44.1 Pneumonia J18.9 DOMINGO (obstructive sleep apnea) G47.33
--- NOTE | 2020-01-14 11:43 | Hospitalist Progress Note ---
Date of Service January 14, 2020 Assessment & Plan (1) Acute exacerbation of chronic obstructive airways disease: CT chest on 01/06 showed mild tree-in-bud; concerning for infection. - Treating with cefdinir + doxycycline PO, prednisone. - At baseline O2 requirement of 2L QHS. - Continue Singulair, albuterol PRN - COVID discussed with infection control team - low likelihood, testing eschewed. - Added Mucomyst 10% nebulizers in conversation with pulmonology on 01/11. - Discussed with pulmonology. Added ICS to her inhaler regimen and begin tapering oral steroids. PT/OT for deconditioning. - Added NaBicarb to help improve her metabolic acidosis which hopefully will help her shortness of breath so she doesn't have to compensate for the acidosis. (2) Pneumonia: - As above (3) MISTY (acute kidney injury): Baseline Cr ~1.2, eGFR ~50-55. - Was bouncing around 1.6 this admission. - Up to 2.0 on 01/10 -> Possibly contrast-induced nephropathy. - Follows with Dr. Salgado as outpatient; seen by nephrology. - Improved today at 1.4. Continue to hold ACEi; held IV fluids for concern for volume overload. - Started on sodium bicarb on 01/13 for metabolic acidosis (4) Diabetes mellitus, type 2: A1c was 7.8% this admission. - ISS with Accu-Cheks ACHS - Glycemic pharmacy consulted while on high-dose steroids, glucose running in high 200s at time of admission, patient reports poor oral intake secondary to URI. - Holding metformin - Blood sugars stable ~150-210 in last 24 hours. Should improve as we taper steroids. (5) Hypothyroidism: This was in her MAR; however, her TSH was 0.14 this admission with FT4 of 0.88. - No levothyroxine (6) Crohns disease: S/p ileostomy creation, diagnosed since in her 20s, follows with [facility]. 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 Jeter on 12/05/2018. No indication of recurrence. - No inpatient needs (8) DVT prophylaxis: Heparin 5000 units SQ Q12h Admission and Anticipated Discharge Date Admission Date: January 07, 2020 Subjective Improving overall. She still has shortness of breath, but the cough is improving. Reports no fevers/chills, chest pain, abdominal pain, nausea, or vomiting. Physical Exam Constitutional: WD/WN, vitals as above Eyes: EOM intact bilaterally; no conjunctival abnormality ENMT: external ear and nose normal, oropharynx normal Neck: trachea midline, no thyromegaly normal visual inspection Respiratory: no respiratory distress Auscultation: no wheezes Cardiovascular: RRR, no murmur, no edema Gastrointestinal (Abdomen): Inspection/Auscultation: abdomen normal to inspection; abdomen not distended Musculoskeletal: no cyanosis or clubbing, extremities motor strength 5/5 Skin: no rashes, warm and dry Neurologic: moves all extremities and awake Psychiatric: Orientation: alert, oriented to person and cooperative Results & Data Results & Data ([facility]) Vital Signs (Past 12 Hours) Vital Signs Temp Pulse Pulse Resp BP Pulse Ox 01/14/20 07:33 36.5 C 86 16 136/85 98 01/14/20 07:26 83 01/14/20 07:00 86 16 98 01/14/20 04:07 36.3 C L 89 18 115/75 99 01/14/20 02:20 96 H PG Care Time/CCT Total # of Minutes Spent Total Time Spent with Patient: Total time spent is greater than 50% in coordination of care (as documented) at patient's floor/unit and/or counseling patient: Coding Level of Care Code 03413 Subseq Hosp Care Lvl 2 Diagnoses Acute exacerbation of chronic obstructive airways disease J44.1 Pneumonia J18.9 MISTY (acute kidney injury) N17.9 Diabetes mellitus, type 2 E11.9 Hypothyroidism E03.9 Crohns disease K50.90 Primary mucinous adenocarcinoma of lung C34.90 DVT prophylaxis Z29.9
[2020-01-14] MEDS: SODIUM BICARBONATE 650 MG TAB PO SCH ×3 (12:05→20:41)
--- NOTE | 2020-01-14 13:24 | Pharmacy Report ---
Pharmacy Glycemic Short Note 2 - Date of Service January 14, 2020 - Glycemic Short BSG Results (Last 24 hours): 01/13/20 01/13/20 01/14/20 16:31 20:01 05:50 Glucose 85 POC Glucose 227 H 238 H 01/14/20 01/14/20 07:30 11:52 Glucose POC Glucose 79 148 H OUTPATIENT ANTIDIABETIC REGIMEN: * Metformin 1000 mg po qAM and 500 mg po with lunch ASSESSMENT: * Patient received total of 50 units of insulin yesterday, of which 15 were basal insulin/NPH and 35 units were bolus Novolog. * Fasting BSG normal this AM. Post prandial BSGs yesterday were elevated. * Prednisone dose was tapered down to 40 mg daily starting today AM. This should help with BSGs getting closer to goal today. * NPH dose was continued at 15 units this morning even though the Prednisone dose was decreased. This is because BSGs were elevated yesterday even with the 15 units of NPH given. Also, patient's renal function improved from Scr. of 1.84 yesterday to 1.38 today which means better clearance of insulin. PLAN FOR INPATIENT GLYCEMIC CONTROL: * Hold outpatient oral diabetes medications * Basal insulin * NPH 15 units SQ x1 * Bolus insulin: continued * NovoLog per scale ACHS or Q6hrs while NPO * Goal Range: Low 110 mg/dL - High 140 mg/dL * Correction Factor: 25 mg/dL/unit * Carb ratio: 7 g CHO/unit PLAN FOR DISCHARGE: * Continue home metformin, assuming no contraindications at discharge and assuming eGFR >45 mL/min
[2020-01-14] MEDS: MAGNESIUM SULFATE / D5W 1 GM/100 ML BAG IV SCH ×2 (14:04→15:16)
[2020-01-15] MEDS: ACETAMINOPHEN 325 MG TAB PO PRN ×2 (01:53→07:45)
[2020-01-15 06:01] LABS: Hematocrit (blood only) 39.1 % (37-47); Hemoglobin 12.5 g/dL (12.0-16.0); Mean Corpuscular Hemoglobin 25.6 pg (25-34); Mean Platelet Volume 9.2 fL (7.4-10.4); Platelet Count 279 K/uL (130-400); RDW Coefficient of Variation 16.2 % (11.5-14.5); RDW Standard Deviation 46.7 fL (36.4-46.3); Red Blood Count 4.89 M/uL (4.2-5.4); White Blood Count 14.18 K/uL (4.8-10.8)
[2020-01-15 06:32] LABS: BUN Creatinine Ratio 23.4 (10-20); Calcium 8.4 mg/dl (8.5-10.1); Creatinine Clr Calc Pharmacy 45.2 ml/min; Est GFR (African American) 49.9; Potassium 3.5 mmol/L (3.5-5.1)
[2020-01-15] MEDS: ALBUT/IPRATROP 3MG/0.5MG NEB 3 ML VIAL NEB PRN (07:05)
[2020-01-15] MEDS: ACETYLCYSTEINE 10% INHAL SOLN 4 ML **DISPENSED BY RESP. INH SCH (07:05)
[2020-01-15] MEDS: UMECLIDINIUM/VILANTEROL 62.5/25MCG 7 PUFFS/INHALER INH SCH (07:42)
[2020-01-15] MEDS: FERROUS SULFATE 325 MG TAB PO SCH (07:43)
[2020-01-15] MEDS: ATORVASTATIN 40 MG TAB PO SCH (07:43)
[2020-01-15] MEDS: FLUTICASONE FUROATE 100MCG 14 PUFFS/INHALER INH SCH (07:43)
[2020-01-15] MEDS: SODIUM BICARBONATE 650 MG TAB PO SCH ×2 (07:43→12:30)
[2020-01-15] MEDS: VENLAFAXINE HCL XR 150 MG CAPXR PO SCH (07:43)
[2020-01-15] MEDS: CHOLECALCIFEROL 1,000 UNITS 25 MCG TAB PO SCH (07:43)
[2020-01-15] MEDS: PANTOprazole 40 MG TAB PO SCH (07:44)
[2020-01-15] MEDS: DOXYCYCLINE HYCLATE 100 MG CAP PO SCH (07:44)
[2020-01-15] MEDS: predniSONE 20 MG TAB PO SCH (07:44)
[2020-01-15] MEDS: MEMANTINE HCL 10 MG TAB PO SCH (07:44)
[2020-01-15] MEDS: CEFDINIR 300 MG CAP PO SCH (07:44)
[2020-01-15] MEDS: MONTELUKAST SODIUM 10 MG TABLET PO SCH (07:44)
[2020-01-15] MEDS: DONEPEZIL HCL 10 MG TAB PO SCH (07:45)
[2020-01-15] MEDS: HEPARIN SOD 5,000 UNIT/0.5 ML VIAL SQ SCH (07:50)
[2020-01-15] MEDS: INSULIN ASPART 100 UNITS/ML 3 ML PEN SC SCH ×3 (07:51→17:03)
[2020-01-15] MEDS ORDERED: NovoLIN-N (NPH) PER UNIT CHARGE SQ ONE (09:00)
--- NOTE | 2020-01-15 09:05 | Pharmacy Report ---
Pharmacy Glycemic Short Note 2 - Date of Service January 15, 2020 - Glycemic Short BSG Results (Last 24 hours): 01/14/20 01/14/20 01/14/20 11:52 16:34 20:20 Glucose POC Glucose 148 H 144 H 119 H 01/15/20 01/15/20 05:33 07:21 Glucose 102 H POC Glucose 87 OUTPATIENT ANTIDIABETIC REGIMEN: * Metformin 1000 mg po qAM and 500 mg po with lunch ASSESSMENT: * Patient received total of 41 units of insulin yesterday, of which 15 were basal insulin/NPH and 26 units were bolus Novolog. * Preferred split for basal:prandial in steroid induced hyperglycemia is ~40% basal" ~60% prandial. Current dosing is appropriately distributed for steroid induced hyperglycemia. * NPH insulin is used to counteract the hyperglycemic effect of prednisone. The rationale for this approach is that the pharmacodynamics profile of NPH, with a peak effect of 4-8hrs and duration of action of 12-16hrs, mirrors the pharmacodynamics of prednisone. NPH should be dosed at the same time that prednisone is given * Typically, patients will also need rapid-acting insulin with meals * Fasting BSG normal this AM. Post prandial BSGs yesterday in goal range with current orders. * Prednisone dose was tapered down to 40 mg daily - will slightly decrease NPH dosing for step down in steroid dosing. * NPH dose was continued at 15 units this morning even though the Prednisone dose was decreased. This is because BSGs were elevated yesterday even with the 15 units of NPH given. Also, patient's renal function improved from Scr. of 1.84 yesterday to 1.38 today which means better clearance of insulin. PLAN FOR INPATIENT GLYCEMIC CONTROL: * Hold outpatient oral diabetes medications * Basal insulin: decrease * NPH 12 units SQ x1 * Bolus insulin: no change * NovoLog per scale ACHS or Q6hrs while NPO * Goal Range: Low 110 mg/dL - High 140 mg/dL * Correction Factor: 25 mg/dL/unit * Carb ratio: 7 g CHO/unit PLAN FOR DISCHARGE: * Continue home metformin, assuming no contraindications at discharge and assuming eGFR >45 mL/min
--- NOTE | 2020-01-15 10:21 | Nephrology Progress Note ---
Date of Service January 15, 2020 Assessment & Plan (1) MISTY (acute kidney injury): 49-year-old female with past medical history stage III CKD, well controlled hypertension diabetes, admitted to the hospital with COPD exacerbation and CAP with failed outpatient antibiotic. Baseline creatinine va riable from 1.2-1.5 renal function was at baseline on admission, developed MISTY over last 3 days and renal function has been progressively worsening. Acute kidney injury could be related to IV contrast exposure or hemodynamically mediated, with her history of recurrent acute kidney injury. Renal function slightly improved with IV fluid, electrolyte, volume status blood pressure acceptable. Renal function continues to improve, getting close to b/l. BP. volume status acceptable. --encourage po intake, keep well hydrated avoid nephrotoxic medications, okay to continue on lisinopril --monitor renal function while inpatient, okay to be discharged with out pt F/U with Dr. Salgado in 6 to 8 weeks. Will sign off (2) Diabetes mellitus, type 2: (3) Acute exacerbation of chronic obstructive airways disease: (4) Metabolic acidosis: Subjective Yu was seen examined in her room this morning. Overall feeling well although continues to have exertional shortness of breath. Volume status acceptable with no sign of volume overload. Renal function improved, creatinine 1.4. Blood pressure stable. Remained nonoliguric. Review of Systems Review of Systems: All systems reviewed & are unremarkable except as noted in HPI & below Physical Exam Constitutional: WD/WN, vitals as above no acute distress Respiratory: normal respiratory effort, lungs clear to auscultation Auscultation: + wheezes; no crackles Cardiovascular: RRR, no murmur, no edema Skin: no rashes, warm and dry Neurologic: moves all extremities and awake; no focal motor deficits and not confused Psychiatric: A+Ox3, euthymic affect Results & Data Vital Signs (Past 12 Hours) Vital Signs Temp Pulse Pulse Resp BP Pulse Ox 01/15/20 07:10 36.5 C 84 18 138/91 98 01/15/20 07:05 84 16 94 01/15/20 04:28 36.3 C L 84 16 122/83 97 01/14/20 22:59 36.6 C 96 H 18 130/80 97 01/14/20 22:26 94 H PG Care Time/CCT Total # of Minutes Spent Total Time Spent with Patient: Total time spent is greater than 50% in coordination of care (as documented) at patient's floor/unit and/or counseling patient: Coding Level of Care Code 21495 Subseq Hosp Care Lvl 2 Diagnoses MISTY (acute kidney injury) N17.9 Diabetes mellitus, type 2 E11.9 Acute exacerbation of chronic obstructive airways disease J44.1 Metabolic acidosis E87.2
--- NOTE | 2020-01-15 18:24 | Discharge Summary ---
Date of Service January 15, 2020 Admission HPI Per Admitting Provider This is a 49-year-old female with PMHx of mucinous adenocarcinoma of the lung, diagnosed in 2019 s/p RUL wedge resection by Dr. Jeter on 12/05/2018, aspergillus infection, remote smoking history of 10 years, quit 20 years ago, COPD, obesity, Crohn's disease s/p ileostomy, history of acute renal insufficiency and HTN, DM type II, osteoarthritis, hypothyroidism, chronic lower back pain. The patient reports she has had a granddaughter visiting with her approximately 3 weeks ago who was sick with bronchitis, her 14-year-old son and contracted similar upper respiratory-like symptoms and then she got it about 2 weeks ago. Patient has been dealing with worsening shortness of breath, fatigue, malaise, and was seen by outpatient pulmonology, Chago Isidro. She had been placed on amoxicillin, followed by Augmentin, followed by azithromycin with her last dose to be taken tomorrow, without significant improvement. She was also placed on a prednisone taper during this time. Patient feels her breathing has not improved, and actually feels short of breath at rest and with long sentences at this point time. She has sputum production with cough which is white to yellow in color. Patient has been using Hycodan cough syrup for relief sleep. She denies any fever. She denies any recent travel out of the [place] or contact with any known COVID-19 persons. Principal Diagnosis CAP causing COPD exacerbation Discharge Exam gen aao [place] heent n[place] at mmm breathing unlabored no accessory muscles no cough good effort skin no rashes no pallor or icterus neuro cn 2-12 grossly intact gross motor/sensory intact Discharge Data Allergies Allergy/AdvReac Type Severity Reaction Status Date / Time No Known Allergies Allergy Verified 01/07/20 16:26 Consultations 01/07/20 17:42 ED Decision to Admit Stat 01/07/20 18:54 Consult Case Management - Discharge Planning Routine 01/11/20 12:22 Consult Nephrology Routine 01/13/20 10:40 Consult Pulmonology Routine Ordered Studies 01/07/20 15:17 CT angio chest PE protocol Stat Hospital Course (1) Acute exacerbation of chronic obstructive airways disease: CT chest on 01/06 showed mild tree-in-bud; concerning for infection. - Treating with cefdinir + doxycycline PO, prednisone. - stable to go home on the same - At baseline O2 requirement of 2L QHS. -has SINGH but no hypoxia - discussed this will likely take a while to return to baseline - Continue Singulair, albuterol PRN - COVID discussed with infection control team by prior hospitalist - low likelihood, testing eschewed. - pulmonary input - triple inhalers w derrick. - previously added NaBicarb to help improve her metabolic acidosis which hopefully will help her shortness of breath so she doesn't have to compensate for the acidosis. this will probably be short lived (2) Pneumonia: - As above (3) MISTY (acute kidney injury): Baseline Cr ~1.2, eGFR ~50-55. - Was bouncing around 1.6 this admission. - now improved - Started on sodium bicarb on 01/13 for metabolic acidosis - since creatinine and CrCl not far from baseline i doubt that she will need this for long, will Rx through next 3 days and have BMP early next week (4) Diabetes mellitus, type 2: A1c was 7.8% this admission. - home on home meds/outpt f/u (5) Hypothyroidism: This was in her MAR; however, her TSH was 0.14 this admission with FT4 of 0.88. - No levothyroxine (6) Crohns disease: S/p ileostomy creation, diagnosed since in her 20s, follows with [facility]. 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 Jeter on 12/05/2018. No indication of recurrence. - No inpatient needs (8) DVT prophylaxis: Heparin 5000 units SQ Q12h utilized during her stay Total Time Total Time Spent Total Time Spent (In Minutes): >30 Discharge Plan Discharge Items Patient Disposition: Home - Self-Care Reason For Visit: PNEUMONIA Discharge Diagnosis: pneumonia causing COPD exacerbation Activity: Resume your previous activity Non-emergency contact: Primary Care Provider Call non-emergency contact if: you have any medication questions, your symptoms worsen and your temperature is above 101 Follow-up/Referrals: Jose Raul Allen [Primary Care Provider] - Diet: Carb Consistent or DM2 Addtl Attending Provider Instructions: pneumonia -this was the "spark that lit the fire" of your COPD exacerbation -fortunately it is improving nicely -most pneumonias can be successfully treated with 5-7 days of antibiotics - because of your chronic lung disease, we'll extend treatment a little longer to 10 days - so another 3.5 days of doxycycline 100mg twice a day, and cefdinir 300mg twice a day - the next dose of both being tonight -as we discussed, pneumonias take a long time to totally get better from - even when i'm discharging a college student who had a pneumonia, we'll anticipate that it may take a month to totally get better. typically the respiratory symptoms (cough, etc) get better before the physical symptoms (short of breath with exertion) which get better before a vague fatigue/tiredness (which usually takes the longest). don't look at progress day to day - there will be day to day progress but it will be too slow to notice; instead look at how you're doing 3-4 days a time -- you should see a little progress every few days. also when comparing, people naturally have a tendency to compare "today's worst" to "yesterday's best" --> and then get discouraged. it's far better to compare today's best to yesterday's best, and today's worst to yesterday's worst. that way you have an honest judgement of your progress -usually pneumonias do not regress once they've started to get better; so if you were to start feeling worse, the concern would be picking up a new infection vs something else (weather, pollen, etc) flaring up your COPD. obviously if you're feeling more short of breath or if you were to develop fevers, we'd want you seen. follow your pulse ox as well - this can be a reasonable guide for you objectively on how your breathing is doing COPD -inflammatory lung infections like pneumonias typically will lead to a flare up of COPD - think of that almost like getting a bronchitis on top of the pneumonia -the antibiotics to treat the pneumonia as above will help significantly; in addition we'll do a short course of steroids before you get back down to your normal dosing --with inhalers, as we discussed, there are three main classes of inhalers that help with COPD: -anticholinergics (or long acting muscarinics, Jen) are typically the most effective inhaler in treating COPD - they help reduce mucous production a good deal and reduce inflammation in the lungs from all of that "junk" laying around -long acting beta agonists (LABAs) are essentially a long acting version of albuterol - to keep airways as open as they can be for a longer period of time -inhaled steroids (ICS) - these put a layer of steroid down on your airway to reduce inflammation -what we usually see is that inhalers aren't necessarily a "magic bullet" where someone as to have just the right inhaler to get benefit. usually what it is, is that people need one of each of the three classes of inhalers to do as well as they can, and since there are so many different types of each, and so many combination inhalers that combine some (or all) of the above classes, people will often not be on 1 of all 3 classes of inhalers. for you, the trelegy becomes the easiest because it has all three classes in one inhaler; however, if you were ever to run into issues where the trelegy becomes too expensive, there are many different ways to get the right classes of inhalers in you - and your "check sheet" would just be to make sure that you have 1 each of a LAMA, LABA, and ICS. kidney issues -fortunately, while you did have a spike in kidney numbers earlier in your hospital stay, your numbers have now improved to around your normal range -when kidney numbers got elevated, you also appeared to need some bicarbonate - which you've been on for a few days. typically people only need this chronically when their kidney numbers are very poor for a long time - which fortunately is not the case with you. however, it does look like you're getting some benefit from the bicarbonate right now - so we'll have you continue it presumptively through the weekend and then get labwork (BMP) done early next week with the expectation that you don't need it alf (and if you did, they'd call in a new Rx) Pending Studies at Discharge: No Stand-Alone Forms: My [facility] [employer], Smoking Cessation Medications and DC Order Prescriptions: New doxycycline hyclate 100 mg tablet 100 mg PO BID Qty: 7 RF: 0 cefdinir 300 mg capsule 300 mg PO BID Qty: 7 RF: 0 Trelegy Ellipta 100-62.5-25 mcg blister with device 1 puffs INH DAILY Qty: 28 RF: 0 prednisone 10 mg tablet 10 mg PO UD Qty: 10 RF: 0 sodium bicarbonate 325 mg tablet 325 mg PO BID Qty: 6 RF: 0 Continued donepezil [Aricept] 10 mg tablet 10 mg PO QAM RF: 0 montelukast [Singulair] 10 mg tablet 10 mg PO QAM RF: 0 cholecalciferol (vitamin D3) 1,000 unit capsule 6,000 units PO DAILY RF: 0 ferrous sulfate 325 mg (65 mg iron) tablet 325 mg PO DAILY RF: 0 atorvastatin 40 mg tablet 40 mg PO DAILY RF: 0 albuterol sulfate 2.5 mg /3 mL (0.083 %) solution for nebulization 2.5 mg INH .COMPLEX PRNRF: 0 gabapentin 100 mg capsule 100 mg PO DAILY RF: 0 lidocaine 5 % adhesive patch,medicated 1 patch TOP DAILY RF: 0 fluoxetine 20 mg capsule 20 mg PO .COMPLEX RF: 0 prednisone 10 mg tablet See Rx Instructions PO DAILY Qty: 36 RF: 0 sodium chloride [Hyper-Sebastian] 7 % solution for nebulization 4 ml INH BID Qty: 240 RF: 5 fluconazole [Diflucan] 100 mg tablet 100 mg PO DAILY Qty: 10 RF: 0 memantine [Namenda] 10 mg tablet 10 mg PO BID RF: 0 voeoiduemxy-ibsamdigo-rrtncslz [Trelegy Ellipta] 100-62.5-25 mcg blister with device 1 inh inhalation DAILY RF: 0 amoxicillin-pot clavulanate [Augmentin] 875-125 mg tablet 1 tab PO Q12H Qty: 20 RF: 0 prednisone 10 mg tablet 5 mg PO HS RF: 0 metformin 500 mg tablet 1,000 mg PO QAM RF: 0 venlafaxine 150 mg capsule,extended release 24hr 150 mg PO QAM RF: 0 pantoprazole 40 mg tablet,delayed release (DR/EC) 40 mg PO QAM RF: 0 codeine-guaifenesin 10-100 mg/5 mL liquid 5 ml PO Q6H PRN (Reason: Cough) RF: 0 cyanocobalamin (vitamin B-12) 1,000 mcg/mL solution 1,000 mcg IM MONTHLY RF: 0 Stelara 90 mg/mL syringe 90 mg SUBCUT .Q3 MONTHS RF: 0 metformin 500 mg tablet 500 mg PO DAILY RF: 0 albuterol sulfate 90 mcg/actuation Hfa Aerosol Inhaler 1 - 2 puff INHALATION Q6H PRN (Reason: Shortness Of Breath) RF: 0 Discontinued Anoro Ellipta 62.5-25 mcg/actuation blister with device 1 puffs INH DAILY RF: 0 azithromycin 250 mg tablet See Rx Instructions PO .COMPLEX Qty: 6 RF: 0 Discharge Orders: Discharge Order (Routine); Ordered 01/15/20 Ordered By: Lex Villegas/Other Patient Handouts: Diabetes Type 2 Managing, Diabetes Healthy Meals, Diabetes Meal Planning Admission Data Admit Date/Time: 01/07/20 17:53 Attending Provider: Lex Kenyon Admit Provider: Alexis Austin Primary Care Provider: Jose Raul Allen Other Providers: Alexis Austin ; Dia Paiz ; Nakia Mahmood ; Lex Bentley Other Interventions: Discharge Summary Assessment (RN) Last Done: 01/15/20 16:37 DC Date/Time DO NOT enter until pt leaves facility: 01/15/20 18:10 Coding Level of Care Code D/C Day Management >30 mins Diagnoses Acute exacerbation of chronic obstructive airways disease J44.1 Pneumonia J18.9 MISTY (acute kidney injury) N17.9 Diabetes mellitus, type 2 E11.9 Hypothyroidism E03.9 Crohns disease K50.90 Primary mucinous adenocarcinoma of lung C34.90 DVT prophylaxis Z29.9
== END 2020-01-15 18:10 | disposition home or self-care (01) | DRG 190 ==
LOC: ED 14:41 → SUATTDRO 17:53 → 2W 17:53

== ENCOUNTER 2020-02-18 16:45 | Inpatient (IN) ==
[2020-02-18] MEDS ORDERED: ACETAMINOPHEN 325 MG TAB PO STA (17:34)
[2020-02-18] MEDS ORDERED: SODIUM CHLORIDE 0.9% 1000ML 2,000 ML IV SCH (17:45)
--- NOTE | 2020-02-18 17:51 | Emergency Department Note ---
Impression & Plan Acute renal failure (ARF), Acute dehydration, Pneumonia ED Provider Note NAME: RUPAL STACK AGE: 49 SEX: F : 1970 ARRIVES VIA: Walk-In INFORMANT: Patient, ED PROVIDER(S): Chacho Tony MD Chief Complaint: Weakness, back pain HPI: Patient does present with concern for weakness. The patient also states that she was recently seen yesterday at [facility] where she did have COVID testing completed as there was concern after she had a CAT scan of the chest without contrast completed. The patient has not had any cough does have a known history of COPD and lung cancer status post wedge resection. The patient is a smoker and does use oxygen at nighttime. The patient did have an admission back in January for community-acquired pneumonia and COPD. The patient states that the weakness is diffuse and that she has felt associated lightheadedness and dizziness. The patient states that somewhat positional as sitting up makes it worse. Patient also is concerned as she has not been making much urine. The patient also relates that she is been losing more liquid and stool through her ileostomy. No recent change in diet. ROS: See HPI for pertinent positives and negatives. A total of 10 systems were reviewed and otherwise negative. Past medical history: See below Surgical history: See below Social history: See below Physical Exam: GENERAL: Mildly ill in appearance. EYE EXAM: Normal conjunctiva. PERRL, no anisocoria and EOM's grossly intact w/o pain. NECK: Supple, no nuchal rigidity, no adenopathy, non-tender. No signs of meningismus. LUNGS: Clear to auscultation. Normal chest wall mechanics. HEART: NSR, no MRG. ABDOMEN: Abdomen soft, non-tender, normo-active bowel sounds, no masses, no rebound or guarding. BACK: No CVA TTP. SKIN: No rashes and no bruising. UPPER EXTREMITIES: Upper extremities are grossly normal. LOWER EXTREMITIES: Grossly normal, no edema. NEURO EXAM: A&O x3, cranial nerves II-XII grossly intact, normal speech, moves all 4 extremities on command w/o issue. Differential diagnoses: Infection, dehydration, metabolic abnormality, hypo/hyperglycemia, electrolyte disturbance, anemia, hypoxia, cardiac sources, intracerebral event, toxicologic, neurologic, as well as other pathologies. Course: Patient was seen and evaluated the bedside. Full history and physical exam was performed. EKG: [] Imaging Studies: Radiology results as stated below per my review in the radiologist's interpretation: ABDOMEN AND PELVIS CT WITHOUT CONTRAST CT DOSE: 965.01 mGycm HISTORY: ARF, back pain TECHNIQUE: Multiaxial CT images of the abdomen and pelvis were performed without contrast. A dose lowering technique was utilized adhering to the principles of ALARA. COMPARISON STUDY: Abdomen and pelvis CT 09/22/2018. FINDINGS: A few peripheral groundglass nodular densities within the right lung base. This favors a mild infectious bronchiolitis. The left lung bases are essentially clear. No pneumoperitoneum. No pneumatosis. Old, healed right-sided rib fracture. No acute fractures identified. Cholecystectomy. The unenhanced liver, spleen, adrenal glands, and pancreas are unremarkable. There is a small diverticulum at the second portion of the duodenum. There are few left renal stones with the largest in the lower pole measuring 3 mm. No ureteral calculi. No hydronephrosis. Bladder is decompressed by a Dennis catheter. There is a punctate right renal stone on image 171. No retroperitoneal lymphadenopathy. Normal caliber abdominal aorta. The uterus and bilateral adnexa are unremarkable. There is a subtotal colectomy with a rectal stump and a left lower quadrant ileostomy. Suboptimal evaluation for bowel pathology due to the lack of intravenous and oral contrast. However, there is no definite bowel wall thickening or obstruction. IMPRESSION: 1. Prior subtotal colectomy with a left lower quadrant ileostomy. 2. No definite bowel wall thickening or obstruction. 3. Cholecystectomy. 4. Bilateral nephrolithiasis. No ureteral stones. No hydronephrosis. 5. The bladder is decompressed by a Dennis catheter. 6. A few peripheral groundglass nodular densities within the right lung base which favors a mild infectious bronchiolitis. ACT 112: Negative or not required by law. Electronically signed by: Gregg Walker M.D. 02/18/2020 9:23 PM Dictated: 02/18/202113 Transcribed: 02/18/202113 XR chest 1V portable HISTORY: weakness COMPARISON: Chest 01/11/2020. FINDINGS: No pneumothorax or no pleural effusions. The heart remains borderline enlarged. The left lung is clear. Old, healed right rib fractures. 2 material within the right hilum consistent with postoperative change. Right basilar airspace opacity which is new from the prior study. There is also prominence of the right hilum. IMPRESSION: 1. Right lower lobe airspace opacity. This is concerning for a pneumonia. Recommend follow-up to resolution. 2. There is also prominence of the right hilum which could be due to underlying lymphadenopathy. Recommend follow-up to resolution. ACT 112: Negative or not required by law. Electronically signed by: Gregg Walker M.D. 02/18/2020 7:14 PM Dictated: 02/18/201911 Transcribed: 02/18/201911 Cardiac monitoring: An order was placed for continuous cardiac monitoring. The monitor shows a rate of 101 with tachycardia rhythm. MDM: Patient does present with weakness. The patient was initially hypotensive so blood work was obtained along with IV fluids lactic and blood cultures. The patient currently is not taking active steroids. The patient's blood work did come back with a white count of 16 but with a normal H&H and platelet count. The patient's lactic was normal but the patient did have acute renal failure. The patient denies taking NSAIDs. The patient does not have much in terms of nephrotoxic medications. T believe much of this may be related unfortunately to her fluid loss through her ileostomy. I did order a CK additional IV fluids as well as D5 half with bicarb at 250 an hour. I did page and speak with Dr. Blevins with [facility] physician group nephrology who agreed with the current plan but did relate that the patient would not be able to be dialyzed until tomorrow morning at that indeed was the case. The Dennis had been placed and the patient was making a very small amount of urine. The patient's blood pressure did seem to improve initially with a 2 L of fluid. X-ray showed the possibility of pneumonia so Zosyn was added. Patient troponin is not detectable. Urinalysis was obtained which shows positive whites and leuks but with epithelial cells and no evidence of any nitrites or bacteria. Also of note the patient's potassium is normal even in the patient's acute renal failure this was not treated. Patient's magnesium was low. This was ordered for replacement. Patient did undergo CT abdomen pelvis which does not show any evidence of any ureteral stones or hydronephrosis. I did speak the on-call hospitalist who agreed to further evaluate treat the patient. Patient was subsequently admitted the medicine service. Critical Care I have personally spent 40 minutes of critical care time in direct management of this patient. This includes bedside care, interpretation of diagnostic studies, and testing, discussion with consultants, patient, and family members, and other require inpatient management activities. This 40 minutes is in excess of all separately billable procedures. Past Med/Surg History Medical History Acid reflux Anxiety (Chronic) Asthma COPD (chronic obstructive pulmonary disease) Crohns disease (Chronic) Depressive disorder (Chronic) Diabetes mellitus, type 2 Former smoker (Resolved) History of pancreatitis Hypothyroidism (Chronic) Left lumbar radiculitis (Chronic) Lumbago (Chronic) Lung cancer Lung nodule Metabolic acidosis Myofascial pain (Chronic) On home oxygen therapy 2L O2 CONT. Osteoarthritis Psoriasis (Chronic) Sacroiliitis (Chronic) Short-term memory loss Shortness of breath PROBLEM OVER LAST THREE MONTHS/NEEDS TO REST AFTER 5 STEPS Surgical History History of adenoidectomy History of bilateral tubal ligation History of bowel resection X 2 (ILEOSTOMY) History of bronchoscopy 10/31/2018 [facility]. MAC 3, Grade 1 view. 8.5 ETT. no issues. History of carpal tunnel release of both wrists History of cholecystectomy History of colonoscopy History of herniorrhaphy History of ileostomy (Resolved) X2 History of lobectomy of lung LUNG MASS REMOVED History of lung surgery wedge of RUL 2/6 History of myringotomy History of thyroidectomy, subtotal History of tonsillectomy History of tooth extraction S/P thyroidectomy (Deleted 01/07/14) Family History Aunt Family history of breast cancer Mother Family history of diabetes mellitus Social History Preferred Language: Chadian Communication Ability: Effective Visual Impairment: No Limitations Mobile Electronics Installer Required: No Beliefs That Will Affect Care: None marital status: Life Partner Current Living Situation: Family and Significant Other Current Living Situation Comment: son, daughter, and SO. Feels Safe at Home: Yes Smoking Status: Former smoker Tobacco Type: cigarettes ; Cigarettes Per Day: 30 ; Second Hand Exposure: No ; Hx Alcohol Use: Yes Alcohol type: wine Hx Substance Use: No Allergies Allergies Allergy/AdvReac Type Severity Reaction Status Date / Time No Known Allergies Allergy Verified 02/18/20 19:32 Home Meds Home Medications Medication Instructions Recorded Confirmed cholecalciferol (vitamin D3) 25 6,000 units PO DAILY cap 07/15/18 02/18/20 mcg (1,000 unit) capsule donepezil 10 mg tablet 10 mg PO QAM 07/15/18 02/18/20 montelukast 10 mg tablet 10 mg PO QAM 07/15/18 02/18/20 albuterol sulfate 1 - 2 puff INHALATION Q6H PRN 10/20/18 02/18/20 atorvastatin 40 mg tablet 40 mg PO DAILY 05/26/19 02/18/20 ferrous sulfate 325 mg (65 mg 325 mg PO DAILY tab 05/26/19 02/18/20 iron) tablet memantine 10 mg tablet 10 mg PO BID tab 08/03/19 02/18/20 Stelara 90 mg SUBCUT .Q3 MONTHS 01/07/20 02/18/20 cyanocobalamin (vitamin B-12) 1,000 mcg IM MONTHLY 01/07/20 02/18/20 metformin 1,000 mg PO QAM 01/07/20 02/18/20 pantoprazole 40 mg PO QAM 01/07/20 02/18/20 venlafaxine 150 mg PO QAM 01/07/20 02/18/20 albuterol sulfate 2.5 mg INHALATION Q4 PRN 01/11/20 02/18/20 fluoxetine 20 mg capsule 60 mg PO DAILY 01/11/20 02/18/20 lidocaine 5 % topical patch 1 patch TOP DAILY 01/11/20 02/18/20 metformin 500 mg tablet 500 mg PO DAILY tab 01/11/20 02/18/20 cyclobenzaprine 10 mg PO Q8 PRN 02/18/20 02/18/20 metoprolol succinate [Toprol XL] 25 mg PO DAILY 02/18/20 02/18/20 oxycodone [Roxicodone] 5 mg PO Q6 PRN 02/18/20 02/18/20 Previous Rx's Medication Instructions Recorded sodium chloride 7 % for 4 ml INH BID #240 ml 01/04/20 nebulization evwrbowkast-afduujhvh-ratmaegi 1 puffs INH DAILY #28 ea 01/15/20 [Trelegy Ellipta] Results & Data (ED) Vital Signs Vital Signs - 24 hr 02/18/20 17:00 02/18/20 17:26 02/18/20 17:34 Temperature 36.7 C Temperature Source Oral Pulse Rate 101 H 99 H Pulse Rate from SpO2 Sensor Pulse Rhythm Regular Pulse Strength Normal Respiratory Rate 22 16 Respiratory Effort / Characteristics Non-Labored Spontaneous Respiratory Depth Normal Respiratory Pattern Regular Blood Pressure 67/41 L 77/45 L Blood Pressure Mean 49 60 Blood Pressure Position Sitting Pulse Oximetry 99 99 Oxygen Delivery Method Room Air Room Air Sepsis Recent Fever Within 48 Hours No Sepsis New/Unexplained Change in Mental Status No Sepsis Action Taken by Nursing No Action Required Pulse Oximetry Post Tiitration 99 02/18/20 17:36 02/18/20 17:45 02/18/20 18:00 Temperature Temperature Source Pulse Rate 100 H 97 H 96 H Pulse Rate from SpO2 Sensor 100 H 98 H 96 H Pulse Rhythm Pulse Strength Respiratory Rate 19 17 17 Respiratory Effort / Characteristics Respiratory Depth Respiratory Pattern Blood Pressure 65/39 L 61/43 L 64/39 L Blood Pressure Mean 43 48 46 Blood Pressure Position Pulse Oximetry 99 98 99 Oxygen Delivery Method Sepsis Recent Fever Within 48 Hours Sepsis New/Unexplained Change in Mental Status Sepsis Action Taken by Nursing Pulse Oximetry Post Tiitration 02/18/20 18:15 02/18/20 18:30 02/18/20 18:31 Temperature Temperature Source Pulse Rate 96 H 98 H 98 H Pulse Rate from SpO2 Sensor 98 H Pulse Rhythm Pulse Strength Respiratory Rate 17 17 18 Respiratory Effort / Characteristics Respiratory Depth Respiratory Pattern Blood Pressure 76/46 L 69/47 L Blood Pressure Mean 54 55 Blood Pressure Position Pulse Oximetry 96 Oxygen Delivery Method Sepsis Recent Fever Within 48 Hours Sepsis New/Unexplained Change in Mental Status Sepsis Action Taken by Nursing Pulse Oximetry Post Tiitration 02/18/20 18:45 02/18/20 19:00 02/18/20 19:01 Temperature Temperature Source Pulse Rate 96 H 100 H 101 H Pulse Rate from SpO2 Sensor 96 H Pulse Rhythm Pulse Strength Respiratory Rate 18 23 20 Respiratory Effort / Characteristics Respiratory Depth Respiratory Pattern Blood Pressure 73/41 L 73/45 L Blood Pressure Mean 50 66 Blood Pressure Position Pulse Oximetry 100 Oxygen Delivery Method Sepsis Recent Fever Within 48 Hours Sepsis New/Unexplained Change in Mental Status Sepsis Action Taken by Nursing Pulse Oximetry Post Tiitration 02/18/20 19:15 02/18/20 19:30 02/18/20 19:31 Temperature Temperature Source Pulse Rate 101 H 100 H 101 H Pulse Rate from SpO2 Sensor 100 H 102 H 101 H Pulse Rhythm Pulse Strength Respiratory Rate 19 17 19 Respiratory Effort / Characteristics Respiratory Depth Respiratory Pattern Blood Pressure 92/47 L 85/51 L Blood Pressure Mean 69 59 Blood Pressure Position Pulse Oximetry 100 100 99 Oxygen Delivery Method Sepsis Recent Fever Within 48 Hours Sepsis New/Unexplained Change in Mental Status Sepsis Action Taken by Nursing Pulse Oximetry Post Tiitration 02/18/20 19:45 02/18/20 19:46 02/18/20 20:00 Temperature 36.4 C L Temperature Source Pulse Rate 101 H 100 H 102 H Pulse Rate from SpO2 Sensor 100 H 100 H 102 H Pulse Rhythm Pulse Strength Respiratory Rate 20 18 17 Respiratory Effort / Characteristics Respiratory Depth Respiratory Pattern Blood Pressure 110/52 L 85/51 L Blood Pressure Mean 84 63 Blood Pressure Position Pulse Oximetry 99 100 99 Oxygen Delivery Method Sepsis Recent Fever Within 48 Hours Sepsis New/Unexplained Change in Mental Status Sepsis Action Taken by Nursing Pulse Oximetry Post Tiitration 02/18/20 20:01 02/18/20 20:15 02/18/20 20:30 Temperature Temperature Source Pulse Rate 105 H 103 H 100 H Pulse Rate from SpO2 Sensor 105 H 104 H 100 H Pulse Rhythm Pulse Strength Respiratory Rate 19 20 18 Respiratory Effort / Characteristics Respiratory Depth Respiratory Pattern Blood Pressure 87/49 L 79/47 L Blood Pressure Mean 61 55 Blood Pressure Position Pulse Oximetry 98 99 100 Oxygen Delivery Method Sepsis Recent Fever Within 48 Hours Sepsis New/Unexplained Change in Mental Status Sepsis Action Taken by Nursing Pulse Oximetry Post Tiitration 02/18/20 20:31 02/18/20 21:01 02/18/20 21:04 Temperature Temperature Source Pulse Rate 100 H 102 H 101 H Pulse Rate from SpO2 Sensor 101 H 102 H 101 H Pulse Rhythm Pulse Strength Respiratory Rate 18 17 18 Respiratory Effort / Characteristics Respiratory Depth Respiratory Pattern Blood Pressure 78/47 L Blood Pressure Mean 66 Blood Pressure Position Pulse Oximetry 99 100 100 Oxygen Delivery Method Sepsis Recent Fever Within 48 Hours Sepsis New/Unexplained Change in Mental Status Sepsis Action Taken by Nursing Pulse Oximetry Post Tiitration 02/18/20 21:16 02/18/20 21:30 02/18/20 21:45 Temperature Temperature Source Pulse Rate 102 H 102 H 104 H Pulse Rate from SpO2 Sensor 102 H 102 H 104 H Pulse Rhythm Pulse Strength Respiratory Rate 17 17 21 Respiratory Effort / Characteristics Respiratory Depth Respiratory Pattern Blood Pressure 72/42 L 80/46 L 81/54 L Blood Pressure Mean 57 64 68 Blood Pressure Position Pulse Oximetry 97 100 98 Oxygen Delivery Method Sepsis Recent Fever Within 48 Hours Sepsis New/Unexplained Change in Mental Status Sepsis Action Taken by Nursing Pulse Oximetry Post Tiitration Home Medications Current Medication List: was personally reviewed by me Laboratory Data Attestation: I reviewed the patient's lab results. Result diagrams: 02/18/20 17:41 02/18/20 17:41 Lab Results 02/18/20 02/18/20 02/18/20 Range/Units 17:41 17:41 17:41 WBC 16.64 H (4.8-10.8) K/uL RBC 4.44 (4.2-5.4) M/uL Hgb 12.1 (12.0-16.0) g/dL Hct 37.1 (37-47) % MCV 83.6 (80-100) fL MCH 27.3 (25-34) pg MCHC 32.6 (32-36) g/dL RDW Std Deviation 55.0 H (36.4-46.3) fL RDW Coeff of Nabeel 18.0 H (11.5-14.5) % Plt Count 325 (130-400) K/uL MPV 10.7 H (7.4-10.4) fL Immature Gran % (Auto) 0.7 % Neut % (Auto) 80.0 % Lymph % (Auto) 13.8 % [place] % (Auto) 4.4 % Eos % (Auto) 0.8 % Baso % (Auto) 0.3 % Immature Gran # (Auto) 0.11 H (0.00-0.02) K/uL Neut # (Auto) 13.30 H (1.4-6.5) K/uL Lymph # (Auto) 2.30 (1.2-3.4) K/uL [place] # (Auto) 0.74 H (0.11-0.59) K/uL Eos # (Auto) 0.14 (0-0.5) K/uL Baso # (Auto) 0.05 (0-0.2) K/uL PT 11.3 (9.0-12.0) Seconds INR 1.1 (0.9-1.1) Sodium 131 L (136-145) mmol/L Potassium 5.0 (3.5-5.1) mmol/L Chloride 102 (98-107) mmol/L Carbon Dioxide 11 L (21-32) mmol/L Anion Gap 18.0 H (3-11) BUN 96 H (7-18) mg/dl Creatinine 7.85 H* (0.6-1.2) mg/dl Est Cr Clr Drug Dosing 8.2 ml/min Est GFR ( Amer) 6.3 Est GFR (Non-Af Amer) 5.4 BUN/Creatinine Ratio 12.2 (10-20) Glucose 145 H (70-99) mg/dl Lactate (0.4-2.0) mmol/L Calcium 7.7 L (8.5-10.1) mg/dl Magnesium 1.2 L (1.8-2.4) mg/dl Total Bilirubin 0.3 (0.2-1) mg/dl AST 14 L (15-37) U/L ALT 30 (12-78) U/L Alkaline Phosphatase 125 H (45-117) U/L Total Creatine Kinase (26-192) U/L Troponin I < 0.015 (0-0.045) ng/ml Total Protein 7.8 (6.4-8.2) gm/dl Albumin 3.8 (3.4-5.0) gm/dl Globulin 4.0 (2.5-4.0) gm/dl Albumin/Globulin Ratio 0.9 (0.9-2) TSH 0.591 (0.300-4.500) uIu/ml Urine Color Urine Appearance (Clear) Urine pH (4.5-7.5) Ur Specific [place] (1.000-1.030) Urine Protein (Negative) Urine Glucose (UA) (Negative) Urine Ketones (Negative) Urine Blood (Negative) Urine Nitrite (Negative) Urine Bilirubin (Negative) Urine Urobilinogen (Negative) Ur Leukocyte Esterase (Negative) Urine WBC (Auto) (0-5) /hpf Urine RBC (Auto) (0-4) /hpf U Hyaline Cast (Auto) (0-5) /lpf U Epithel Cells (Auto) (0-5) /lpf Urine Bacteria (Auto) (Negative) Ur Renal Epithelial Cell (0-5) /lpf 02/18/20 02/18/20 02/18/20 Range/Units 17:41 17:41 20:03 WBC (4.8-10.8) K/uL RBC (4.2-5.4) M/uL Hgb (12.0-16.0) g/dL Hct (37-47) % MCV (80-100) fL MCH (25-34) pg MCHC (32-36) g/dL RDW Std Deviation (36.4-46.3) fL RDW Coeff of Nabeel (11.5-14.5) % Plt Count (130-400) K/uL MPV (7.4-10.4) fL Immature Gran % (Auto) % Neut % (Auto) % Lymph % (Auto) % [place] % (Auto) % Eos % (Auto) % Baso % (Auto) % Immature Gran # (Auto) (0.00-0.02) K/uL Neut # (Auto) (1.4-6.5) K/uL Lymph # (Auto) (1.2-3.4) K/uL [place] # (Auto) (0.11-0.59) K/uL Eos # (Auto) (0-0.5) K/uL Baso # (Auto) (0-0.2) K/uL PT (9.0-12.0) Seconds INR (0.9-1.1) Sodium (136-145) mmol/L Potassium (3.5-5.1) mmol/L Chloride (98-107) mmol/L Carbon Dioxide (21-32) mmol/L Anion Gap (3-11) BUN (7-18) mg/dl Creatinine (0.6-1.2) mg/dl Est Cr Clr Drug Dosing ml/min Est GFR ( Amer) Est GFR (Non-Af Amer) BUN/Creatinine Ratio (10-20) Glucose (70-99) mg/dl Lactate 1.7 (0.4-2.0) mmol/L Calcium (8.5-10.1) mg/dl Magnesium (1.8-2.4) mg/dl Total Bilirubin (0.2-1) mg/dl AST (15-37) U/L ALT (12-78) U/L Alkaline Phosphatase (45-117) U/L Total Creatine Kinase 58 (26-192) U/L Troponin I (0-0.045) ng/ml Total Protein (6.4-8.2) gm/dl Albumin (3.4-5.0) gm/dl Globulin (2.5-4.0) gm/dl Albumin/Globulin Ratio (0.9-2) TSH (0.300-4.500) uIu/ml Urine Color Dark Yellow Urine Appearance Turbid A (Clear) Urine pH 5.0 (4.5-7.5) Ur Specific [place] 1.025 (1.000-1.030) Urine Protein 2+ H (Negative) Urine Glucose (UA) Negative (Negative) Urine Ketones Trace H (Negative) Urine Blood Negative (Negative) Urine Nitrite Negative (Negative) Urine Bilirubin Negative (Negative) Urine Urobilinogen Negative (Negative) Ur Leukocyte Esterase 1+ H (Negative) Urine WBC (Auto) 10-30 H (0-5) /hpf Urine RBC (Auto) 0-4 (0-4) /hpf U Hyaline Cast (Auto) 1-5 (0-5) /lpf U Epithel Cells (Auto) >30 H (0-5) /lpf Urine Bacteria (Auto) Negative (Negative) Ur Renal Epithelial Cell 0-5 (0-5) /lpf Administered Medications Sodium Bicarbonate 150 meq/ (Dextrose) 1,150 mls @ 250 mls/hr IV .Q4H36M [facility] Stop: 02/19/20 03:56 Last Admin: 02/18/20 19:09 Dose: 250 mls/hr Documented by: [id number] Discontinued Medications Acetaminophen (Tylenol) 650 mg PO NOW STA Stop: 02/18/20 17:35 Last Admin: 02/18/20 18:03 Dose: 650 mg Documented by: [id number] Benzonatate (Tessalon Perle) 100 mg PO NOW ONE Stop: 02/18/20 19:44 Last Admin: 02/18/20 20:00 Dose: 100 mg Documented by: [id number] Sodium Chloride (Nss 1000ml) 2,000 mls @ 999 mls/hr IV .Q2H1M [facility] Stop: 02/18/20 19:45 Last Infusion: 02/18/20 20:34 Dose: 0 mls/hr Documented by: [id number] Admin: 02/18/20 18:03 Dose: 999 mls/hr Documented by: [id number] Sodium Chloride (Nss 1000ml) 500 mls @ 999 mls/hr IV .Q31M ONE Stop: 02/18/20 20:13 Last Infusion: 02/18/20 20:35 Dose: 0 mls/hr Documented by: [id number] Admin: 02/18/20 19:59 Dose: 999 mls/hr Documented by: [id number] Magnesium Sulfate/Dextrose (Magnesium Sulfate / D5w) 1 gm in 100 mls @ 100 mls/hr IV ONE ONE Stop: 02/18/20 20:42 Last Infusion: 02/18/20 22:00 Dose: 0 mls/hr Documented by: [id number] Admin: 02/18/20 19:59 Dose: 100 mls/hr Documented by: [id number] Piperacillin Sod/Tazobactam Sod (Zosyn) 4.5 gm in 120 mls @ 240 mls/hr IV NOW ONE Stop: 02/18/20 21:01 Last Infusion: 02/18/20 22:06 Dose: 0 mls/hr Documented by: [id number] Admin: 02/18/20 21:06 Dose: 240 mls/hr Documented by: [id number] Magnesium Oxide (Mag-Ox) 800 mg PO NOW STA Stop: 02/18/20 19:44 Last Admin: 02/18/20 19:59 Dose: 800 mg Documented by: [id number] Menthol (Nice) 1 francy BUCCAL NOW STA Stop: 02/18/20 19:44 Last Admin: 02/18/20 19:59 Dose: 1 francy Documented by: [id number] Discharge Plan Visit Data Chief Complaint: Dizziness Stated Complaint: PENDING COVID RESULTS, LIGHTHEADED ED Provider: Chacho Tony Discharge Problem: Acute renal failure (ARF), Acute dehydration, Pneumonia Discharge Instructions Interventions: ED Discharge Assessment Last Done: 02/18/20 22:23 Discharge Problem: Acute renal failure (ARF) Qualifiers: Acute renal failure type: unspecified Qualified Code(s): N17.9 - Acute kidney failure, unspecified Pneumonia Qualifiers: Pneumonia type: due to unspecified organism Laterality: right Lung location: lower lobe of lung Qualified Code(s): J18.9 - Pneumonia, unspecified organism
[2020-02-18 18:00] LABS: Basophils # (auto) 0.05 K/uL (0-0.2); Basophils % (auto) 0.3 %; Eosinophils # (auto) 0.14 K/uL (0-0.5); Eosinophils % (auto) 0.8 %; Hematocrit (blood only) 37.1 % (37-47); Hemoglobin 12.1 g/dL (12.0-16.0); Immature Granulocytes # (auto) 0.11 K/uL (0.00-0.02); Immature Granulocytes % (auto) 0.7 %; Lymphocytes % (auto) 13.8 %; Mean Corpuscular Hemoglobin 27.3 pg (25-34); Mean Corpuscular Hgb Conc 32.6 g/dL (32-36); Mean Corpuscular Volume 83.6 fL (80-100); Mean Platelet Volume 10.7 fL (7.4-10.4); Monocytes # (auto) 0.74 K/uL (0.11-0.59); Monocytes % (auto) 4.4 %; Platelet Count 325 K/uL (130-400); Red Blood Count 4.44 M/uL (4.2-5.4); White Blood Count 16.64 K/uL (4.8-10.8)
[2020-02-18 18:14] LABS: INR 1.1 (0.9-1.1); Prothrombin Time 11.3 Seconds (9.0-12.0)
[2020-02-18 18:31] LABS: Alanine Aminotransferase 30 U/L (12-78); Albumin Globulin Ratio 0.9 (0.9-2); Albumin Level 3.8 gm/dl (3.4-5.0); Alkaline Phosphatase 125 U/L (45-117); Aspartate Aminotransferase 14 U/L (15-37); BUN Creatinine Ratio 12.2 (10-20); Bilirubin,Total 0.3 mg/dl (0.2-1); Blood Urea Nitrogen 96 mg/dl (7-18); Calcium 7.7 mg/dl (8.5-10.1); Carbon Dioxide 11 mmol/L (21-32); Chloride 102 mmol/L (98-107); Creatinine Clr Calc Pharmacy 8.2 ml/min; Est GFR (African American) 6.3; Est GFR (Non-African American) 5.4; Glucose 145 mg/dl (70-99); Magnesium 1.2 mg/dl (1.8-2.4); Sodium 131 mmol/L (136-145); Thyroid Stimulating Hormone 0.591 uIu/ml (0.300-4.500); Total Protein 7.8 gm/dl (6.4-8.2); Troponin I < 0.015 ng/ml (0-0.045)
[2020-02-18] MEDS ORDERED: STAT IV STA (18:39)
[2020-02-18] MEDS: SODIUM BICARBONATE 8.4% 150 MEQ in DEXTROSE 5% 1,000 ML IV SCH (19:09)
--- NOTE | 2020-02-18 19:16 | XRay Report ---
XR chest 1V portable HISTORY: weakness COMPARISON: Chest 01/11/2020. FINDINGS: No pneumothorax or no pleural effusions. The heart remains borderline enlarged. The left tarun ng is clear. Old, healed right rib fractures. 2 material within the right hilum consistent with posto perative change. Right basilar airspace opacity which is new from the prior study. There is also prom inence of the right hilum. IMPRESSION: 1. Right lower lobe airspace opacity. This is concerning for a pneumonia. Recommend follow-up to reso lution. 2. There is also prominence of the right hilum which could be due to underlying lymphadenopathy. Zen mmend follow-up to resolution. ACT 112: Negative or not required by law. Electronically signed by: Gregg Walker M.D. 02/18/2020 7:14 PM
[2020-02-18] MEDS ORDERED: SODIUM CHLORIDE 0.9% 1000ML 500 ML IV ONE (19:43)
[2020-02-18] MEDS ORDERED: COUGH DROP (SUGAR FREE) LOZ 24 LOZ/1 BOX BUCCAL STA (19:43)
[2020-02-18] MEDS ORDERED: MAGNESIUM SULFATE / D5W 1 GM/100 ML BAG IV ONE (19:43)
[2020-02-18] MEDS ORDERED: MAGNESIUM OXIDE 400 MG TAB PO STA (19:43)
[2020-02-18] MEDS ORDERED: BENZONATATE 100 MG CAPSULE PO ONE (19:43)
[2020-02-18 20:16] LABS: Appearance Urine Turbid (Clear); Bacteria Urine Automated Negative (Negative); Blood Urine Negative (Negative); Color Urine Dark Yellow; Epithelial Cell Urine Auto >30 /lpf (0-5); Glucose Urine UA Negative (Negative); Ketones Urine Trace (Negative); Leukocyte Esterase Urine 1+ (Negative); Nitrite Urine Negative (Negative); Protein Urine 2+ (Negative); RBC Urine Automated 0-4 /hpf (0-4); Specific Gravity Urine 1.025 (1.000-1.030); Urobilinogen Urine Negative (Negative)
[2020-02-18] MEDS ORDERED: PIPERACILL/TAZOBAC CONSULT ACTIVE PRN ×2 (20:32→22:48)
[2020-02-18] MEDS ORDERED: PIPERACILLIN/TAZOBACTAM 4.5 GM/120 ML BAG IV ONE (20:32)
[2020-02-18 20:37] LABS: Bilirubin Urine Negative (Negative); Ictotest Urine Negative (Negative)
[2020-02-18 20:44] LABS: Renal Epithelial Cells Urine 0-5 /lpf (0-5)
--- NOTE | 2020-02-18 21:24 | CT Scan Report ---
ABDOMEN AND PELVIS CT WITHOUT CONTRAST CT DOSE: 965.01 mGycm HISTORY: ARF, back pain TECHNIQUE: Multiaxial CT images of the abdomen and pelvis were performed without contrast. A dose lo wering technique was utilized adhering to the principles of ALARA. COMPARISON STUDY: Abdomen and pelvis CT 09/22/2018. FINDINGS: A few peripheral groundglass nodular densities within the right lung base. This favors a mi ld infectious bronchiolitis. The left lung bases are essentially clear. No pneumoperitoneum. No pneum atosis. Old, healed right-sided rib fracture. No acute fractures identified. Cholecystectomy. The une nhanced liver, spleen, adrenal glands, and pancreas are unremarkable. There is a small diverticulum a t the second portion of the duodenum. There are few left renal stones with the largest in the lower p ole measuring 3 mm. No ureteral calculi. No hydronephrosis. Bladder is decompressed by a Dennis cathet er. There is a punctate right renal stone on image 171. No retroperitoneal lymphadenopathy. Normal ca liber abdominal aorta. The uterus and bilateral adnexa are unremarkable. There is a subtotal colectom y with a rectal stump and a left lower quadrant ileostomy. Suboptimal evaluation for bowel pathology due to the lack of intravenous and oral contrast. However, there is no definite bowel wall thickening or obstruction. IMPRESSION: 1. Prior subtotal colectomy with a left lower quadrant ileostomy. 2. No definite bowel wall thickening or obstruction. 3. Cholecystectomy. 4. Bilateral nephrolithiasis. No ureteral stones. No hydronephrosis. 5. The bladder is decompressed by a Dennis catheter. 6. A few peripheral groundglass nodular densities within the right lung base which favors a mild infe ctious bronchiolitis. ACT 112: Negative or not required by law. Electronically signed by: Gregg Walker M.D. 02/18/2020 9:23 PM
[2020-02-18] MEDS ORDERED: DEXTROSE 50% 50 ML SYRINGE IV PRN (22:48)
[2020-02-18] MEDS ORDERED: CARBOHYDRATES FOR HYPOGLYCEMIA PO PRN (22:48)
[2020-02-18] MEDS ORDERED: ALBUTEROL HFA 8 GM INHALER INH PRN (22:48)
[2020-02-18] MEDS ORDERED: GLUCOSE 10 TABS/TUBE PO PRN (22:48)
[2020-02-18] MEDS ORDERED: ONDANSETRON INJ 2 MG/ML 2 ML VIAL IV PRN (22:48)
[2020-02-18] MEDS ORDERED: GLUCOSE 40% GEL 15 GM TUBE PO PRN (22:48)
[2020-02-18] MEDS ORDERED: GLUCAGON FOR INJ 1 MG VIAL SQ PRN (22:48)
[2020-02-18 23:35] LABS: HCO3 VBG 16 mmol/L; PCO2 VBG 43 mmHg (38-50); PO2 VBG 29 mmHg; pH VBG 7.18 (7.36-7.41)
[2020-02-18 23:36] LABS: Oxygen Saturation VBG < 60.0 %
[2020-02-19 00:14] LABS: BUN Creatinine Ratio 12.4 (10-20); Calcium 6.1 mg/dl (8.5-10.1); Creatinine Clr Calc Pharmacy 9.1 ml/min; Est GFR (African American) 6.9; Est GFR (Non-African American) 5.9; Phosphorus 6.4 mg/dl (2.5-4.9)
--- NOTE | 2020-02-19 00:51 | History & Physical Report ---
Date of Service February 19, 2020 Assessment & Plan (1) Acute renal failure (ARF): Cr=7.26 from prior value of 1.41. ?acute dehydration in setting of diarrhea, poor PO intake, ATN, AIN. Anion gap metabolic acidosis with pH=7.18, BUN=89 and Cr=7.26. Patient oliguric at this time - 60mL of urine in ER. Dennis in place. K=4. Case discussed with Nephrology by ER -Admit to PCU, cardiac monitoring -Monitor BMP q 4 hours -Dennis catheter with strict I/O monitoring -Nephrology consultation appreciated - patient is agreeable to HD if needed -Bicarbonate drip - 150mEq in D5W at 250mL/hr -Avoid nephrotoxic agents -Renal dosing where needed -Check urine eosinophils, urine Na and Cr for FeNa -Patient was started on sodium bicarbonate on 01/14/20 for metabolic acidosis Present on Admission?: Yes (2) Pneumonia: Patient with small peripheral groundglass densities in the right base noted on her CT Abdomen. She is currently afebrile but tachycardic, hypotensive, neutrophil predominant leukocytosis, elevated procalcitonin. Concern for bacterial PNA vs Covid-19. Patient with COPD, recently hospitalized for CAP and treated with Cefdinir and Doxycycline. MRSA negative -Check Biofire respiratory panel -Requesting results of Covid-[address] chest from [facility] -Maintain isolation precautions - Contact and Airborne until test resulted -Zosyn -Follow culture -Supplemental O2 as needed -Tylenol as needed for pain or fever Present on Admission?: Yes (3) Hypothyroidism: Documented history of hypothyroidism. However, TSH and T4 have been within normal limits. Patient not on levothyroxine. -Noted Present on Admission?: Yes (4) COPD (chronic obstructive pulmonary disease): Patient with cough, SOB and chest tightness. Suspect infectious etiology. Patient with adequate oxygenation, no respiratory distress -Will avoid nebs and steroids while awaiting CoVID testing -Continue O2 as needed -Continue Umeclidinium/Vilanterol -Continue Singulair -Albuterol as needed -Zosyn as above for presumed infection -Covid-19 testing Present on Admission?: Yes (5) Diabetes mellitus, type 2: Blood sugar stable. Recent A1C=7.8 -ISS -Continue to monitor Present on Admission?: Yes (6) Crohns disease: Patient s/p ileostomy now with increased output -Continue to monitor output F/E/N - Bicarb drip, monitor electrolytes, replete Mg and Ca, Renal diet Ppx - Heparin Code - Full Dispo -Admit to PCU Present on Admission?: Yes Admission and Anticipated Discharge Date Admission Date: February 18, 2020 Anticipated date of discharge: 02/22/20 History of Present Illness Chief Complaint: weakness Primary Care Provider: Jose Raul Isidro is a 49yo C female with multiple medical problems presenting with 1 week of cough/SOB and chest tightness. Also with diffuse weakness, nausea, vomiting, poor PO intake and increased liquid output from her ileostomy. She has associated dizziness with positional changes. Patient was seen at [facility] yesterday and had a CT scan of her chest as well as Covid-19 testing performed Patient denies recent travel, no sick contacts, no contact with Covid-19 positive individual Allergies Allergy/AdvReac Type Severity Reaction Status Date / Time No Known Allergies Allergy Verified 02/18/20 19:32 Home Medications Home Medications Medication Instructions Recorded Confirmed Type cholecalciferol (vitamin D3) 25 6,000 units PO DAILY cap 07/15/18 02/18/20 History mcg (1,000 unit) capsule donepezil 10 mg tablet 10 mg PO QAM 07/15/18 02/18/20 History montelukast 10 mg tablet 10 mg PO QAM 07/15/18 02/18/20 History albuterol sulfate 1 - 2 puff INHALATION Q6H PRN 10/20/18 02/18/20 History atorvastatin 40 mg tablet 40 mg PO DAILY 05/26/19 02/18/20 History ferrous sulfate 325 mg (65 mg 325 mg PO DAILY tab 05/26/19 02/18/20 History iron) tablet memantine 10 mg tablet 10 mg PO BID tab 08/03/19 02/18/20 History sodium chloride 7 % for 4 ml INH BID #240 ml 01/04/20 02/18/20 Rx nebulization Stelara 90 mg SUBCUT .Q3 MONTHS 01/07/20 02/18/20 History cyanocobalamin (vitamin B-12) 1,000 mcg IM MONTHLY 01/07/20 02/18/20 History metformin 1,000 mg PO QAM 01/07/20 02/18/20 History pantoprazole 40 mg PO QAM 01/07/20 02/18/20 History venlafaxine 150 mg PO QAM 01/07/20 02/18/20 History albuterol sulfate 2.5 mg INHALATION Q4 PRN 01/11/20 02/18/20 History fluoxetine 20 mg capsule 60 mg PO DAILY 01/11/20 02/18/20 History lidocaine 5 % topical patch 1 patch TOP DAILY 01/11/20 02/18/20 History metformin 500 mg tablet 500 mg PO DAILY tab 01/11/20 02/18/20 History igmfnqzjwgr-zepyleeim-ncgxjqdh 1 puffs INH DAILY #28 ea 01/15/20 02/18/20 Rx [Trelegy Ellipta] cyclobenzaprine 10 mg PO Q8 PRN 02/18/20 02/18/20 History metoprolol succinate [Toprol XL] 25 mg PO DAILY 02/18/20 02/18/20 History oxycodone [Roxicodone] 5 mg PO Q6 PRN 02/18/20 02/18/20 History Past Med/Surg History Medical History Acid reflux Anxiety (Chronic) Asthma COPD (chronic obstructive pulmonary disease) Crohns disease (Chronic) Depressive disorder (Chronic) Diabetes mellitus, type 2 Former smoker (Resolved) History of pancreatitis Hypothyroidism (Chronic) Left lumbar radiculitis (Chronic) Lumbago (Chronic) Lung cancer Lung nodule Metabolic acidosis Myofascial pain (Chronic) On home oxygen therapy 2L O2 CONT. Osteoarthritis Psoriasis (Chronic) Sacroiliitis (Chronic) Short-term memory loss Shortness of breath PROBLEM OVER LAST THREE MONTHS/NEEDS TO REST AFTER 5 STEPS Surgical History History of adenoidectomy History of bilateral tubal ligation History of bowel resection X 2 (ILEOSTOMY) History of bronchoscopy 10/31/2018 [facility]. MAC 3, Grade 1 view. 8.5 ETT. no issues. History of carpal tunnel release of both wrists History of cholecystectomy History of colonoscopy History of herniorrhaphy History of ileostomy (Resolved) X2 History of lobectomy of lung LUNG MASS REMOVED History of lung surgery wedge of RUL 2/6 History of myringotomy History of thyroidectomy, subtotal History of tonsillectomy History of tooth extraction S/P thyroidectomy (Deleted 01/07/14) Family History Aunt Family history of breast cancer Mother Family history of diabetes mellitus Social History Preferred Language: Vincentian Communication Ability: Effective Visual Impairment: No Limitations Train Braker Required: No Beliefs That Will Affect Care: None marital status: Life Partner Current Living Situation: Family and Significant Other Current Living Situation Comment: son, daughter, and SO. Other Information That Helps Us Care for You: No Feels Safe at Home: Yes Safety Concerns: Feels Safe At This Time Smoking Status: Former smoker Tobacco Type: cigarettes ; Cigarettes Per Day: 30 ; Do You Dip or Chew Tobacco: No ; Second Hand Exposure: No ; Hx Alcohol Use: Yes Alcohol type: wine Hx Substance Use: No Review of Systems Review of Systems: All systems reviewed & are unremarkable except as noted in HPI & below Physical Exam Physical Exam: General: patient resting comfortably, NAD, non-toxic in appearance, AA&O x 4 Skin: warm, dry, intact, no rashes or lesions HEENT: NC/AT, PERRL, EOMI, anicteric sclera, conjunctiva without injection, external ear normal to inspection and nontender, nares patent, moist mucus membranes, dentition intact, no oropharyngeal lesions, neck supple, trachea midline, no LAD, no thyromegaly, no JVD Heart: +S1/S2, regular, tachycardic, no m/r/g Lungs: equal air entry bilaterally, no rales/rhonchi/wheezes Abd: +BS, soft, NT/ND, no masses/organomegaly/ascites, ileostomy in place with liquid green output Ext: warm, 2+ pulses in UE/LE bilaterally, no clubbing/cyanosis or edema Neuro: nonfocal, patient AA&O x 4, speech intact, no facial droop, moving all extremities on command with equal strength 5/5 Results & Data Results & Data ([facility]) Vital Signs (Past 12 Hours) Vital Signs Temp Pulse Pulse Resp BP BP Pulse Ox 02/18/20 23:17 36.6 C 108 H 18 77/49 L 99 02/18/20 22:15 102 H 19 92/51 L 99 02/18/20 22:00 103 H 23 86/54 L 99 02/18/20 21:45 104 H 21 81/54 L 98 02/18/20 21:30 102 H 17 80/46 L 100 02/18/20 21:16 102 H 17 72/42 L 97 02/18/20 21:04 101 H 18 78/47 L 100 02/18/20 21:01 102 H 17 100 02/18/20 20:31 100 H 18 99 02/18/20 20:30 100 H 18 79/47 L 100 02/18/20 20:15 103 H 20 87/49 L 99 02/18/20 20:01 105 H 19 98 02/18/20 20:00 102 H 17 85/51 L 99 02/18/20 19:46 100 H 18 100 02/18/20 19:45 36.4 C L 101 H 20 110/52 L 99 02/18/20 19:31 101 H 19 99 02/18/20 19:30 100 H 17 85/51 L 100 02/18/20 19:15 101 H 19 92/47 L 100 02/18/20 19:01 101 H 20 73/45 L 02/18/20 19:00 100 H 23 02/18/20 18:45 96 H 18 73/41 L 100 02/18/20 18:31 98 H 18 02/18/20 18:30 98 H 17 69/47 L 02/18/20 18:15 96 H 17 76/46 L 96 02/18/20 18:00 96 H 17 64/39 L 99 02/18/20 17:45 97 H 17 61/43 L 98 02/18/20 17:36 100 H 19 65/39 L 99 02/18/20 17:34 99 02/18/20 17:26 99 H 16 77/45 L 02/18/20 17:00 36.7 C 101 H 22 67/41 L 99 Laboratory Results Lab Results 02/18/20 02/18/20 02/18/20 Range/Units 17:41 17:41 17:41 WBC 16.64 H (4.8-10.8) K/uL RBC 4.44 (4.2-5.4) M/uL Hgb 12.1 (12.0-16.0) g/dL Hct 37.1 (37-47) % MCV 83.6 (80-100) fL MCH 27.3 (25-34) pg MCHC 32.6 (32-36) g/dL RDW Std Deviation 55.0 H (36.4-46.3) fL RDW Coeff of Nabeel 18.0 H (11.5-14.5) % Plt Count 325 (130-400) K/uL MPV 10.7 H (7.4-10.4) fL Immature Gran % (Auto) 0.7 % Neut % (Auto) 80.0 % Lymph % (Auto) 13.8 % Pine % (Auto) 4.4 % Eos % (Auto) 0.8 % Baso % (Auto) 0.3 % Immature Gran # (Auto) 0.11 H (0.00-0.02) K/uL Neut # (Auto) 13.30 H (1.4-6.5) K/uL Lymph # (Auto) 2.30 (1.2-3.4) K/uL Pine # (Auto) 0.74 H (0.11-0.59) K/uL Eos # (Auto) 0.14 (0-0.5) K/uL Baso # (Auto) 0.05 (0-0.2) K/uL PT 11.3 (9.0-12.0) Seconds INR 1.1 (0.9-1.1) VBG pH (7.36-7.41) VBG pCO2 (38-50) mmHg VBG pO2 mmHg VBG HCO3 mmol/L VBG O2 Saturation % VBG Base Excess mEq/L Barometric Pressure mm/Hg Sodium 131 L (136-145) mmol/L Potassium 5.0 (3.5-5.1) mmol/L Chloride 102 (98-107) mmol/L Carbon Dioxide 11 L (21-32) mmol/L Anion Gap 18.0 H (3-11) BUN 96 H (7-18) mg/dl Creatinine 7.85 H* (0.6-1.2) mg/dl Est Cr Clr Drug Dosing 8.2 ml/min Est GFR ( Amer) 6.3 Est GFR (Non-Af Amer) 5.4 BUN/Creatinine Ratio 12.2 (10-20) Glucose 145 H (70-99) mg/dl Lactate (0.4-2.0) mmol/L Calcium 7.7 L (8.5-10.1) mg/dl Ionized Calcium (1.12-1.32) mmol/L Phosphorus (2.5-4.9) mg/dl Magnesium 1.2 L (1.8-2.4) mg/dl Total Bilirubin 0.3 (0.2-1) mg/dl AST 14 L (15-37) U/L ALT 30 (12-78) U/L Alkaline Phosphatase 125 H (45-117) U/L Total Creatine Kinase (26-192) U/L Troponin I < 0.015 (0-0.045) ng/ml Total Protein 7.8 (6.4-8.2) gm/dl Albumin 3.8 (3.4-5.0) gm/dl Globulin 4.0 (2.5-4.0) gm/dl Albumin/Globulin Ratio 0.9 (0.9-2) Procalcitonin (0-0.5) ng/ml TSH 0.591 (0.300-4.500) uIu/ml Urine Color Urine Appearance (Clear) Urine pH (4.5-7.5) Ur Specific Mascot (1.000-1.030) Urine Protein (Negative) Urine Glucose (UA) (Negative) Urine Ketones (Negative) Urine Blood (Negative) Urine Nitrite (Negative) Urine Bilirubin (Negative) Urine Urobilinogen (Negative) Ur Leukocyte Esterase (Negative) Urine WBC (Auto) (0-5) /hpf Urine RBC (Auto) (0-4) /hpf U Hyaline Cast (Auto) (0-5) /lpf U Epithel Cells (Auto) (0-5) /lpf Urine Bacteria (Auto) (Negative) Ur Renal Epithelial Cell (0-5) /lpf 02/18/20 02/18/20 02/18/20 Range/Units 17:41 17:41 20:03 WBC (4.8-10.8) K/uL RBC (4.2-5.4) M/uL Hgb (12.0-16.0) g/dL Hct (37-47) % MCV (80-100) fL MCH (25-34) pg MCHC (32-36) g/dL RDW Std Deviation (36.4-46.3) fL RDW Coeff of Nabeel (11.5-14.5) % Plt Count (130-400) K/uL MPV (7.4-10.4) fL Immature Gran % (Auto) % Neut % (Auto) % Lymph % (Auto) % Pine % (Auto) % Eos % (Auto) % Baso % (Auto) % Immature Gran # (Auto) (0.00-0.02) K/uL Neut # (Auto) (1.4-6.5) K/uL Lymph # (Auto) (1.2-3.4) K/uL Pine # (Auto) (0.11-0.59) K/uL Eos # (Auto) (0-0.5) K/uL Baso # (Auto) (0-0.2) K/uL PT (9.0-12.0) Seconds INR (0.9-1.1) VBG pH (7.36-7.41) VBG pCO2 (38-50) mmHg VBG pO2 mmHg VBG HCO3 mmol/L VBG O2 Saturation % VBG Base Excess mEq/L Barometric Pressure mm/Hg Sodium (136-145) mmol/L Potassium (3.5-5.1) mmol/L Chloride (98-107) mmol/L Carbon Dioxide (21-32) mmol/L Anion Gap (3-11) BUN (7-18) mg/dl Creatinine (0.6-1.2) mg/dl Est Cr Clr Drug Dosing ml/min Est GFR ( Amer) Est GFR (Non-Af Amer) BUN/Creatinine Ratio (10-20) Glucose (70-99) mg/dl Lactate 1.7 (0.4-2.0) mmol/L Calcium (8.5-10.1) mg/dl Ionized Calcium (1.12-1.32) mmol/L Phosphorus (2.5-4.9) mg/dl Magnesium (1.8-2.4) mg/dl Total Bilirubin (0.2-1) mg/dl AST (15-37) U/L ALT (12-78) U/L Alkaline Phosphatase (45-117) U/L Total Creatine Kinase 58 (26-192) U/L Troponin I (0-0.045) ng/ml Total Protein (6.4-8.2) gm/dl Albumin (3.4-5.0) gm/dl Globulin (2.5-4.0) gm/dl Albumin/Globulin Ratio (0.9-2) Procalcitonin (0-0.5) ng/ml TSH (0.300-4.500) uIu/ml Urine Color Dark Yellow Urine Appearance Turbid A (Clear) Urine pH 5.0 (4.5-7.5) Ur Specific Mascot 1.025 (1.000-1.030) Urine Protein 2+ H (Negative) Urine Glucose (UA) Negative (Negative) Urine Ketones Trace H (Negative) Urine Blood Negative (Negative) Urine Nitrite Negative (Negative) Urine Bilirubin Negative (Negative) Urine Urobilinogen Negative (Negative) Ur Leukocyte Esterase 1+ H (Negative) Urine WBC (Auto) 10-30 H (0-5) /hpf Urine RBC (Auto) 0-4 (0-4) /hpf U Hyaline Cast (Auto) 1-5 (0-5) /lpf U Epithel Cells (Auto) >30 H (0-5) /lpf Urine Bacteria (Auto) Negative (Negative) Ur Renal Epithelial Cell 0-5 (0-5) /lpf 02/18/20 02/18/20 02/18/20 Range/Units 23:23 23:23 23:23 WBC (4.8-10.8) K/uL RBC (4.2-5.4) M/uL Hgb (12.0-16.0) g/dL Hct (37-47) % MCV (80-100) fL MCH (25-34) pg MCHC (32-36) g/dL RDW Std Deviation (36.4-46.3) fL RDW Coeff of Nabeel (11.5-14.5) % Plt Count (130-400) K/uL MPV (7.4-10.4) fL Immature Gran % (Auto) % Neut % (Auto) % Lymph % (Auto) % Pine % (Auto) % Eos % (Auto) % Baso % (Auto) % Immature Gran # (Auto) (0.00-0.02) K/uL Neut # (Auto) (1.4-6.5) K/uL Lymph # (Auto) (1.2-3.4) K/uL Pine # (Auto) (0.11-0.59) K/uL Eos # (Auto) (0-0.5) K/uL Baso # (Auto) (0-0.2) K/uL PT (9.0-12.0) Seconds INR (0.9-1.1) VBG pH 7.18 L (7.36-7.41) VBG pCO2 43 (38-50) mmHg VBG pO2 29 mmHg VBG HCO3 16 mmol/L VBG O2 Saturation < 60.0 % VBG Base Excess -12.0 mEq/L Barometric Pressure 727.9 mm/Hg Sodium 134 L (136-145) mmol/L Potassium 4.0 D (3.5-5.1) mmol/L Chloride 104 (98-107) mmol/L Carbon Dioxide 16 L (21-32) mmol/L Anion Gap 13.0 H (3-11) BUN 89 H (7-18) mg/dl Creatinine 7.26 H* D (0.6-1.2) mg/dl Est Cr Clr Drug Dosing 9.1 ml/min Est GFR ( Amer) 6.9 Est GFR (Non-Af Amer) 5.9 BUN/Creatinine Ratio 12.4 (10-20) Glucose 158 H (70-99) mg/dl Lactate (0.4-2.0) mmol/L Calcium 6.1 L D (8.5-10.1) mg/dl Ionized Calcium (1.12-1.32) mmol/L Phosphorus 6.4 H (2.5-4.9) mg/dl Magnesium (1.8-2.4) mg/dl Total Bilirubin (0.2-1) mg/dl AST (15-37) U/L ALT (12-78) U/L Alkaline Phosphatase (45-117) U/L Total Creatine Kinase 57 (26-192) U/L Troponin I (0-0.045) ng/ml Total Protein (6.4-8.2) gm/dl Albumin (3.4-5.0) gm/dl Globulin (2.5-4.0) gm/dl Albumin/Globulin Ratio (0.9-2) Procalcitonin 0.80 H (0-0.5) ng/ml TSH (0.300-4.500) uIu/ml Urine Color Urine Appearance (Clear) Urine pH (4.5-7.5) Ur Specific Mascot (1.000-1.030) Urine Protein (Negative) Urine Glucose (UA) (Negative) Urine Ketones (Negative) Urine Blood (Negative) Urine Nitrite (Negative) Urine Bilirubin (Negative) Urine Urobilinogen (Negative) Ur Leukocyte Esterase (Negative) Urine WBC (Auto) (0-5) /hpf Urine RBC (Auto) (0-4) /hpf U Hyaline Cast (Auto) (0-5) /lpf U Epithel Cells (Auto) (0-5) /lpf Urine Bacteria (Auto) (Negative) Ur Renal Epithelial Cell (0-5) /lpf 02/18/20 Range/Units 23:23 WBC (4.8-10.8) K/uL RBC (4.2-5.4) M/uL Hgb (12.0-16.0) g/dL Hct (37-47) % MCV (80-100) fL MCH (25-34) pg MCHC (32-36) g/dL RDW Std Deviation (36.4-46.3) fL RDW Coeff of Nabeel (11.5-14.5) % Plt Count (130-400) K/uL MPV (7.4-10.4) fL Immature Gran % (Auto) % Neut % (Auto) % Lymph % (Auto) % Pine % (Auto) % Eos % (Auto) % Baso % (Auto) % Immature Gran # (Auto) (0.00-0.02) K/uL Neut # (Auto) (1.4-6.5) K/uL Lymph # (Auto) (1.2-3.4) K/uL Pine # (Auto) (0.11-0.59) K/uL Eos # (Auto) (0-0.5) K/uL Baso # (Auto) (0-0.2) K/uL PT (9.0-12.0) Seconds INR (0.9-1.1) VBG pH (7.36-7.41) VBG pCO2 (38-50) mmHg VBG pO2 mmHg VBG HCO3 mmol/L VBG O2 Saturation % VBG Base Excess mEq/L Barometric Pressure mm/Hg Sodium (136-145) mmol/L Potassium (3.5-5.1) mmol/L Chloride (98-107) mmol/L Carbon Dioxide (21-32) mmol/L Anion Gap (3-11) BUN (7-18) mg/dl Creatinine (0.6-1.2) mg/dl Est Cr Clr Drug Dosing ml/min Est GFR ( Amer) Est GFR (Non-Af Amer) BUN/Creatinine Ratio (10-20) Glucose (70-99) mg/dl Lactate (0.4-2.0) mmol/L Calcium (8.5-10.1) mg/dl Ionized Calcium 0.83 L (1.12-1.32) mmol/L Phosphorus (2.5-4.9) mg/dl Magnesium (1.8-2.4) mg/dl Total Bilirubin (0.2-1) mg/dl AST (15-37) U/L ALT (12-78) U/L Alkaline Phosphatase (45-117) U/L Total Creatine Kinase (26-192) U/L Troponin I (0-0.045) ng/ml Total Protein (6.4-8.2) gm/dl Albumin (3.4-5.0) gm/dl Globulin (2.5-4.0) gm/dl Albumin/Globulin Ratio (0.9-2) Procalcitonin (0-0.5) ng/ml TSH (0.300-4.500) uIu/ml Urine Color Urine Appearance (Clear) Urine pH (4.5-7.5) Ur Specific Mascot (1.000-1.030) Urine Protein (Negative) Urine Glucose (UA) (Negative) Urine Ketones (Negative) Urine Blood (Negative) Urine Nitrite (Negative) Urine Bilirubin (Negative) Urine Urobilinogen (Negative) Ur Leukocyte Esterase (Negative) Urine WBC (Auto) (0-5) /hpf Urine RBC (Auto) (0-4) /hpf U Hyaline Cast (Auto) (0-5) /lpf U Epithel Cells (Auto) (0-5) /lpf Urine Bacteria (Auto) (Negative) Ur Renal Epithelial Cell (0-5) /lpf Diagnostic Findings XR chest 1V portable HISTORY: weakness COMPARISON: Chest 01/11/2020. FINDINGS: No pneumothorax or no pleural effusions. The heart remains borderline enlarged. The left lung is clear. Old, healed right rib fractures. 2 material within the right hilum consistent with postoperative change. Right basilar airs pace opacity which is new from the prior study. There is also prominence of the right hilum. IMPRESSION: 1. Right lower lobe airspace opacity. This is concerning for a pneumonia. Recomm end follow-up to resolution. 2. There is also prominence of the right hilum which could be due to underlying lymphadenopathy. Recommend follow-up to resolution. ACT 112: Negative or not required by law. Electronically signed by: Gregg Walker M.D. 02/18/2020 7:14 PM Dictated: 02/18/201911 Transcribed: 02/18/201911 ABDOMEN AND PELVIS CT WITHOUT CONTRAST CT DOSE: 965.01 mGycm HISTORY: ARF, back pain TECHNIQUE: Multiaxial CT images of the abdomen and pelvis were performed without contrast. A dose lowering technique was utilized adhering to the principles of ALARA. COMPARISON STUDY: Abdomen and pelvis CT 09/22/2018. FINDINGS: A few peripheral groundglass nodular densities within the right lung base. This favors a mild infectious bronchiolitis. The left lung bases are essentially clear. No pneumoperitoneum. No pneumatosis. Old, healed right-sided rib fracture. No acute fractures identified. Cholecystectomy. The unenhanced liver, spleen, adrenal glands, and pancreas are unremarkable. There is a small diverticulum at the second portion of the duodenum. There are few left renal stones with the largest in the lower pole measuring 3 mm. No ureteral calculi. No hydronephrosis. Bladder is decompressed by a Dennis catheter. There is a punctate right renal stone on image 171. No retroperitoneal lymphadenopathy. Normal caliber abdominal aorta. The uterus and bilateral adnexa are unremarkable. There is a subtotal colectomy with a rectal stump and a left lower quadrant ileostomy. Suboptimal evaluation for bowel pathology due to the lack of intravenous and oral contrast. However, there is no definite bowel wall thickening or obstruction. IMPRESSION: 1. Prior subtotal colectomy with a left lower quadrant ileostomy. 2. No definite bowel wall thickening or obstruction. 3. Cholecystectomy. 4. Bilateral nephrolithiasis. No ureteral stones. No hydronephrosis. 5. The bladder is decompressed by a Dennis catheter. 6. A few peripheral groundglass nodular densities within the right lung base which favors a mild infectious bronchiolitis. ACT 112: Negative or not required by law. Electronically signed by: Gregg Walker M.D. 02/18/2020 9:23 PM Dictated: 02/18/[id number] Transcribed: 02/18/202113 Code Status & VTE Plan Code Status FULL CODE PG Care Time/CCT Total # of Minutes Spent Total Time Spent with Patient: Total time spent is greater than 50% in coordination of care (as documented) at patient's floor/unit and/or counseling patient: Coding Level of Care Code 89498 Initial Inpt Care Lvl 3 Diagnoses Acute renal failure (ARF) N17.9 Acute renal failure type: unspecified Pneumonia J18.9 Laterality: right Lung location: lower lobe of lung Pneumonia type: due to unspecified organism Hypothyroidism E03.9 Hypothyroidism type: unspecified COPD (chronic obstructive pulmonary disease) J44.9 COPD type: unspecified COPD Diabetes mellitus, type 2 E11.9 Diabetes mellitus fdc insulin use: without ocean transportation intermediary use Diabetes mellitus complication status: without complication Crohns disease K50.919 Gastrointestinal tract location: unspecified location Digestive disease complication type: unspecified complication (1) Acute renal failure (ARF) Acute renal failure type: unspecified Qualified Code(s): N17.9 - Acute kidney failure, unspecified (2) Diabetes mellitus, type 2 Diabetes mellitus ocean transportation intermediary insulin use: without ocean transportation intermediary use Diabetes mellitus complication status: without complication Qualified Code(s): E11.9 - Type 2 diabetes mellitus without complications (3) Hypothyroidism Hypothyroidism type: unspecified Qualified Code(s): E03.9 - Hypothyroidism, unspecified (4) COPD (chronic obstructive pulmonary disease) COPD type: unspecified COPD Qualified Code(s): J44.9 - Chronic obstructive pulmonary disease, unspecified (5) Pneumonia Laterality: right Lung location: lower lobe of lung Pneumonia type: due to unspecified organism Qualified Code(s): J18.9 - Pneumonia, unspecified organism (6) Crohns disease Gastrointestinal tract location: unspecified location Digestive disease complication type: unspecified complication Qualified Code(s): K50.919 - Crohn's disease, unspecified, with unspecified complications
[2020-02-19] MEDS ORDERED: CALCIUM GLUCONATE 10% 1,000 MG in SODIUM CHLORIDE 0.9% 50 ML IV STA (01:35)
[2020-02-19] MEDS: SODIUM BICARBONATE 8.4% 150 MEQ in DEXTROSE 5% 1,000 ML IV SCH (02:46)
[2020-02-19] MEDS: ACETAMINOPHEN 325 MG TAB PO PRN ×3 (02:58→20:45)
[2020-02-19] MEDS: MAGNESIUM SULFATE / D5W 1 GM/100 ML BAG IV SCH ×2 (03:17→05:03)
[2020-02-19] MEDS ORDERED: STAT IV Infusion **Titration per Protocol STA (03:35)
[2020-02-19] MEDS ORDERED: NOREPINEPHRINE BIT INJ 8 MG in DEXTROSE 5% 500 ML IV SCH (03:45)
[2020-02-19 04:54] LABS: Adenovirus PCR Not Detected (NotDetected); Bordetella parapertussis PCR Not Detected (NotDetected); Bordetella pertussis PCR Not Detected (NotDetected); Chlamydia pneumoniae PCR Not Detected (NotDetected); Coronavirus 229E PCR Not Detected (NotDetected); Coronavirus HKU1 PCR Not Detected (NotDetected); Coronavirus NL63 PCR Not Detected (NotDetected); Coronavirus OC43PCR Not Detected (NotDetected); Human Metapneumovirus PCR Not Detected (NotDetected); Influenza A PCR Not Detected (NotDetected); Influenza B PCR Not Detected (NotDetected); Mycoplasma pneumoniae PCR Not Detected (NotDetected); Parainfluenza Virus 1 PCR Not Detected (NotDetected); Parainfluenza Virus 2 PCR Not Detected (NotDetected); Parainfluenza Virus 3 PCR Not Detected (NotDetected); Parainfluenza Virus 4 PCR Not Detected (NotDetected); Respiratory Syncytial VirusPCR Not Detected (NotDetected); Rhinovirus/Enterovirus PCR Not Detected (NotDetected)
[2020-02-19] MEDS: PIPERACILLIN/TAZOBACTAM 3.375 GM in DEXTROSE 5% 100 ML IV SCH ×2 (05:03→16:33)
[2020-02-19 05:38] LABS: Basophils # (auto) 0.04 K/uL (0-0.2); Basophils % (auto) 0.5 %; Eosinophils # (auto) 0.12 K/uL (0-0.5); Eosinophils % (auto) 1.4 %; Hematocrit (blood only) 29.1 % (37-47); Hemoglobin 9.5 g/dL (12.0-16.0); Immature Granulocytes # (auto) 0.05 K/uL (0.00-0.02); Immature Granulocytes % (auto) 0.6 %; Lymphocytes # (auto) 1.05 K/uL (1.2-3.4); Lymphocytes % (auto) 11.9 %; Mean Corpuscular Hemoglobin 26.5 pg (25-34); Mean Corpuscular Hgb Conc 32.6 g/dL (32-36); Mean Corpuscular Volume 81.1 fL (80-100); Mean Platelet Volume 9.8 fL (7.4-10.4); Monocytes # (auto) 0.36 K/uL (0.11-0.59); Monocytes % (auto) 4.1 %; Neutrophils # (auto) 7.17 K/uL (1.4-6.5); Neutrophils % (auto) 81.5 %; Platelet Count 201 K/uL (130-400); RDW Coefficient of Variation 17.8 % (11.5-14.5); RDW Standard Deviation 52.3 fL (36.4-46.3); Red Blood Count 3.59 M/uL (4.2-5.4); White Blood Count 8.79 K/uL (4.8-10.8)
[2020-02-19 06:14] LABS: Alanine Aminotransferase 21 U/L (12-78); Albumin Level 2.6 gm/dl (3.4-5.0); Alkaline Phosphatase 90 U/L (45-117); Aspartate Aminotransferase 13 U/L (15-37); Bilirubin Direct < 0.1 mg/dl (0-0.2); Bilirubin,Total 0.3 mg/dl (0.2-1); Total Protein 5.8 gm/dl (6.4-8.2)
[2020-02-19 06:23] LABS: BUN Creatinine Ratio 11.8 (10-20); Calcium 6.4 mg/dl (8.5-10.1); Creatinine Clr Calc Pharmacy 9.2 ml/min; Est GFR (African American) 6.8; Est GFR (Non-African American) 5.9; Potassium 3.5 mmol/L (3.5-5.1)
--- NOTE | 2020-02-19 07:25 | Hospitalist Progress Note ---
Date of Service February 19, 2020 Assessment & Plan (1) Acute renal failure (ARF): Appreciate nephrology oversight conservative management for ATN from severe volume loss from diarrhea Continue to recommend supportive care no need for invasive dialysis -Dennis catheter with strict I/O monitoring now has had some increased urinary output Because the patient is taking p.o. well will have 1 more liter of fluid only because she is having increased output of stool discontinue IV fluids after this (2) Pneumonia: Patient with small peripheral groundglass densities in the right base noted on her CT Abdomen. recently hospitalized for CAP and treated with Cefdinir and Doxycycline. MRSA negative Patient has a negative bio Epitiro respiratory panel and negative COVID testing resulted from [facility] Patient has very little pulmonary symptoms nonproductive coughing which he says is overall improved from last discharge She is initiated and remains on Zosyn therapy, on 02/19 she remains without significant pulmonary symptoms CT scan chest from the [facility] 02/16/2020 reads few groundglass opacities in the right suprahilar region adjacent to the surgical bed and in the periphery of the right lower lobe plus posteriorly in the left lower lobe there is no associated effusion or endobronchial lesions there is a stable postoperative lobulated retrosternal mass which is unchanged in size at 2.[address] Abdomen and Pelvis IMPRESSION: 1. Prior subtotal colectomy with a left lower quadrant ileostomy. 2. No definite bowel wall thickening or obstruction. 3. Cholecystectomy. 4. Bilateral nephrolithiasis. No ureteral stones. No hydronephrosis. 5. The bladder is decompressed by a Dennis catheter. 6. A few peripheral groundglass nodular densities within the right lung base which favors a mild infectious bronchiolitis. (3) Hypothyroidism: Documented history of hypothyroidism. However, TSH and T4 have been within normal limits. Patient not on levothyroxine. -Noted (4) COPD (chronic obstructive pulmonary disease): Patient with adequate oxygenation, no respiratory distress Patient is had improvement with nebulizers did not use steroids at this time. -Continue Umeclidinium/Vilanterol -Continue Singulair (5) Diabetes mellitus, type 2: Blood sugar variable with highs of 200s continue covering with sliding scale. Recent A1C=7.8 (6) Crohns disease: Patient s/p ileostomy now with increased output -Continue to monitor output, if output becomes an issue may consider motility slowing agents patient had a negative C. difficile on presentation during this admission Ppx - Heparin Code - Full Dispo -Admit to PCU (7) Hypotension: Hypotension secondary hypovolemic shock resuscitated with fluids and improved Admission and Anticipated Discharge Date Admission Date: February 18, 2020 Subjective This is a 49-year-old female with PMHx of mucinous adenocarcinoma of the lung, diagnosed in 2019 s/p RUL wedge resection by Dr. Jeter on 12/05/2018, aspergillus infection, remote smoking history of 10 years, quit 20 years ago, COPD, obesity, Crohn's disease s/p ileostomy, history of acute renal insufficiency and HTN, DM type II, osteoarthritis, hypothyroidism, chronic lower back pain. This patient presents as a transfer from [facility] with acute renal failure, hypotension likely from hypovolemic shock, pending COVID testing which subsequently has resulted negative, an outpatient significant diarrheal illness which likely led to her renal failure. Patient feels much better on 02/19 she still has some increased ostomy output will have 1 more liter of fluid given under the supervision of nephrology. Her creatinine is improved she is now hypokalemic she overall feels somewhat better. She has no further pulmonary complaints Review of Systems Review of Systems: Mild distress and fatigue no headache, blurry or double vision no speech or swallowing issues no chest pain, pressure or palpitations no shortness of breath, nonproductive cough she does have diffuse wheezes no abdominal pain, nausea or vomiting, diarrhea has lessened but not yet returned to her normal consistency no dysuria, hematuria or frequency no focal joint pain or swelling no back pain, CVA tenderness or radicular pain no bruising, bleeding or rashes no focal signs of weakness or numbness or altered sensation no complaints or anxiety or depression Physical Exam Physical Exam: The patient appeared well nourished and normally developed. Patient is in mild distress Vital signs as documented. Head exam is normocephalic atraumatic no scleral icterus Neck is without JVD, thyromegaly, or carotid bruits. Lungs are wheezes have resolved right lung with rhonchi Cardiac exam, Rhythm is regular.. No murmurs, rubs or gallops. Abdominal exam reveals normal bowel sounds, soft non tender, no masses ostomy is functioning well but filled with liquid Extremities are nonedematous and both pedal pulses are normal. Neurologic exam is alert and oriented, no focal loss of strength or sensation Skin is without bruises or rashes Psychologically is without concerns for anxiety or depression Results & Data Results & Data ([facility]) Vital Signs (Past 12 Hours) Vital Signs Temp Pulse Pulse Resp BP BP Pulse Ox 02/19/20 02:51 97.9 F 98 H 16 74/45 L 98 02/18/20 23:17 97.9 F 108 H 18 77/49 L 99 02/18/20 22:15 102 H 19 92/51 L 99 02/18/20 22:00 103 H 23 86/54 L 99 02/18/20 21:45 104 H 21 81/54 L 98 02/18/20 21:30 102 H 17 80/46 L 100 02/18/20 21:16 102 H 17 72/42 L 97 02/18/20 21:04 101 H 18 78/47 L 100 02/18/20 21:01 102 H 17 100 02/18/20 20:31 100 H 18 99 02/18/20 20:30 100 H 18 79/47 L 100 02/18/20 20:15 103 H 20 87/49 L 99 02/18/20 20:01 105 H 19 98 02/18/20 20:00 102 H 17 85/51 L 99 02/18/20 19:46 100 H 18 100 02/18/20 19:45 97.5 F L 101 H 20 110/52 L 99 02/18/20 19:31 101 H 19 99 02/18/20 19:30 100 H 17 85/51 L 100 PG Care Time/CCT Total # of Minutes Spent Total Time Spent with Patient: Total time spent is greater than 50% in coordination of care (as documented) at patient's floor/unit and/or counseling patient: Coding Level of Care Code 61431 Subseq Hosp Care Lvl 3 Diagnoses Acute renal failure (ARF) N17.9 Acute renal failure type: unspecified Pneumonia J18.9 Laterality: right Lung location: lower lobe of lung Pneumonia type: due to unspecified organism Hypothyroidism E03.9 Hypothyroidism type: unspecified COPD (chronic obstructive pulmonary disease) J44.9 COPD type: unspecified COPD Diabetes mellitus, type 2 E11.9 Diabetes mellitus complication status: without complication Diabetes mellitus penitentiary insulin use: without penitentiary use Crohns disease K50.919 Digestive disease complication type: unspecified complication Gastrointestinal tract location: unspecified location Hypotension I95.9 (1) Acute renal failure (ARF) Acute renal failure type: unspecified Qualified Code(s): N17.9 - Acute kidney failure, unspecified (2) Diabetes mellitus, type 2 Diabetes mellitus complication status: without complication Diabetes mellitus machine long goods helper insulin use: without penitentiary use Qualified Code(s): E11.9 - Type 2 diabetes mellitus without complications (3) Crohns disease Digestive disease complication type: unspecified complication Gastrointestinal tract location: unspecified location Qualified Code(s): K50.919 - Crohn's disease, unspecified, with unspecified complications (4) Hypothyroidism Hypothyroidism type: unspecified Qualified Code(s): E03.9 - Hypothyroidism, unspecified (5) COPD (chronic obstructive pulmonary disease) COPD type: unspecified COPD Qualified Code(s): J44.9 - Chronic obstructive pulmonary disease, unspecified (6) Pneumonia Laterality: right Lung location: lower lobe of lung Pneumonia type: due to unspecified organism Qualified Code(s): J18.9 - Pneumonia, unspecified organism
[2020-02-19] MEDS: UMECLIDINIUM/VILANTEROL 62.5/25MCG 7 PUFFS/INHALER INH SCH (07:34)
[2020-02-19] MEDS: FLUTICASONE FUROATE 100MCG 14 PUFFS/INHALER INH SCH (07:35)
[2020-02-19] MEDS: FERROUS SULFATE 325 MG TAB PO SCH (07:35)
[2020-02-19] MEDS: FLUOXETINE HCL 20 MG CAP PO SCH (07:36)
[2020-02-19] MEDS: MONTELUKAST SODIUM 10 MG TABLET PO SCH (07:36)
[2020-02-19] MEDS: PANTOprazole 40 MG TAB PO SCH (07:36)
[2020-02-19] MEDS: DONEPEZIL HCL 10 MG TAB PO SCH (07:37)
[2020-02-19] MEDS: ATORVASTATIN 40 MG TAB PO SCH (07:37)
[2020-02-19] MEDS: VENLAFAXINE HCL XR 150 MG CAPXR PO SCH (07:38)
[2020-02-19] MEDS: MEMANTINE HCL 10 MG TAB PO SCH ×2 (07:38→20:48)
[2020-02-19] MEDS: LIDOCAINE 5% 1 PATCH TD SCH (07:39)
[2020-02-19] MEDS: HEPARIN SOD 5,000 UNIT/0.5 ML VIAL SQ SCH ×2 (07:56→21:05)
--- NOTE | 2020-02-19 08:43 | Electrocardiogram Report ---
Test Reason : Blood Pressure : / mmHG Vent. Rate : 099 BPM Atrial Rate : 099 BPM P-R Int : 134 ms QRS Dur : 088 ms QT Int : 356 ms P-R-T Axes : 054 048 068 degrees QTc Int : 456 ms Normal sinus rhythm Normal ECG When compared with ECG of 13-JAN-2020 09:47, Nonspecific ST and T wave abnormality no longer present Confirmed by Marco Crisostomo ([id number]) on 02/19/2020 8:43:00 AM Referred By: Willie Isidro Confirmed By:Marco Crisostomo
[2020-02-19] MEDS: INSULIN ASPART 100 UNITS/ML 3 ML PEN SC SCH ×4 (08:51→20:50)
[2020-02-19] MEDS ORDERED: FLUTICASONE FUROATE 100MCG 14 PUFFS/INHALER INH SCH (09:00)
[2020-02-19] MEDS ORDERED: DONEPEZIL HCL 10 MG TAB PO SCH (09:00)
[2020-02-19] MEDS ORDERED: UMECLIDINIUM/VILANTEROL 62.5/25MCG 7 PUFFS/INHALER INH SCH (09:00)
[2020-02-19] MEDS ORDERED: LIDOCAINE 5% 1 PATCH TD SCH (09:00)
[2020-02-19] MEDS ORDERED: PANTOprazole 40 MG TAB PO SCH (09:00)
[2020-02-19] MEDS ORDERED: FLUOXETINE HCL 20 MG CAP PO SCH (09:00)
[2020-02-19] MEDS ORDERED: VENLAFAXINE HCL XR 150 MG CAPXR PO SCH (09:00)
[2020-02-19] MEDS ORDERED: MEMANTINE HCL 10 MG TAB PO SCH (09:00)
[2020-02-19] MEDS ORDERED: FERROUS SULFATE 325 MG TAB PO SCH (09:00)
[2020-02-19] MEDS ORDERED: ATORVASTATIN 40 MG TAB PO SCH (09:00)
[2020-02-19] MEDS ORDERED: MONTELUKAST SODIUM 10 MG TABLET PO SCH (09:00)
--- NOTE | 2020-02-19 10:15 | Nephrology Consultation ---
Date of Consultation February 19, 2020 Assessment & Plan (1) Acute renal failure (ARF): -- MISTY on CKD due to hypotension and dehydration related to pneumonia and diarrhea -- Baseline Cr 1.2 - 1.5 -- Urine sediment negative for blood. Positive for WBC's and protein. Will repeat urine microscopy in am to check for ATN casts. Awaiting urine culture results and UPCR. Patient is currently on broad spectrum antibiotics -- Abdominal CT report from [facility] reviewed this morning: no obstruction -- Patient is currently oxygenating well. Electrolyte balance is acceptable. No acute indication for HD today. Will order PRP for am (2) Hypotension: -- Currently on IV Norepinephrine. Recommend titrating to maintain MAP 65 mmHg -- If further volume resuscitation needed recommend using a balanced crystalloid solution such as Normosol (3) Metabolic acidosis: -- High anion gap metabolic acidosis due to combination MISTY and GI bicarbonate losses -- Serum HCO3 has improved to 21 mmol/L this am. NaHCO3 gtt has been stopped. Will monitor (4) Hypocalcemia: -- Corrected serum calcium remains low. Will provide IV Ca gluconate this am and monitor levels (5) Anemia: -- Possibly dilutional related to 4 L volume resuscitation overnight -- Will order CBC w/ diff for am (6) Pneumonia: -- CXR and CT show RLL peripheral infiltrate -- Biofire testing was negative. Blood cultures are pending -- Await COVID-19 test results. Consider repeat testing after 24 hours -- Will order CRP History of Present Illness Reason for Consultation: MISTY/CKD Attending Physician: Bandar Anne MD History of Present Illness Ms. Isidro is a 49 year old white female who was seen at the request of Dr. Anne for evaluation of MISTY/CKD. Information for the history is taken from the medical record. Patient is currently under investigation for possible COVID-19 and on respiratory isolation. Patient was observed through the door window. Physical exam has been deferred to the primary hospitalist team. Plan of care and medical management have been discussed with them this morning. Ms. Isidro has stage III CKD (moderate impairment). Baseline Cr has been 1.2 - 1.5 w/ EGFR ~ 45 cc/min. Her renal impairment has been attributed to microvascular disease, possible diabetic nephropathy and previous evisodes of MISTY/ATN related to pneumonia/dehydration. Her medical history is significant for AODM managed w/ metformin, tobacco use w/ COPD (30 pack yr smoking hx, quit ~ 10 yrs ago, int ermittent steroid use for management of COPD), mucinous adenocarcinoma of the lung s/p RUL resection 12/02, psoriasis managed w/ biologic agents, Crohn's disease s/p ileostomy and hypothyroidism. Ms. Isidro resides in [place], [place]. She presented to [facility] yesterday for evaluation of cough, diarrhea, myalgias and fatigue. Chest and abdominal CT scans were performed without IV contrast. Ms. Isidro was diagnosed w/ MISTY (Cr 7.0), high anion gap metabolic acidosis, hypotension (SBP 60 - 70's), and a RLL peripheral lung infiltrate. No renal obstruction was reported on imaging studies. COVID-19 testing was performed. Results are pending. Ms. Isidro was transferred to [facility] for ongoing medical care and HD if needed. Since admission to [facility] she has received 2 L 0.9NS, 2 L D5W w/ 150mEq NaHCO3 and has been started on a Levophed gtt. She has been empirically started on Piperacillin/Tazobactam IV for treatment of pnuemonia. Metformin has been held. Ms. Isidro is currently oliguric with significant ileostomy output. She is oxygenating well on 2 L NC but having episodes of severe, prolonged coughing. Allergies Allergy/AdvReac Type Severity Reaction Status Date / Time No Known Allergies Allergy Verified 02/18/20 19:32 Home Medications Home Medications Medication Instructions Recorded Confirmed Type cholecalciferol (vitamin D3) 25 6,000 units PO DAILY cap 07/15/18 02/18/20 History mcg (1,000 unit) capsule donepezil 10 mg tablet 10 mg PO QAM 07/15/18 02/18/20 History montelukast 10 mg tablet 10 mg PO QAM 07/15/18 02/18/20 History albuterol sulfate 1 - 2 puff INHALATION Q6H PRN 10/20/18 02/18/20 History atorvastatin 40 mg tablet 40 mg PO DAILY 05/26/19 02/18/20 History ferrous sulfate 325 mg (65 mg 325 mg PO DAILY tab 05/26/19 02/18/20 History iron) tablet memantine 10 mg tablet 10 mg PO BID tab 08/03/19 02/18/20 History sodium chloride 7 % for 4 ml INH BID #240 ml 01/04/20 02/18/20 Rx nebulization Stelara 90 mg SUBCUT .Q3 MONTHS 01/07/20 02/18/20 History cyanocobalamin (vitamin B-12) 1,000 mcg IM MONTHLY 01/07/20 02/18/20 History metformin 1,000 mg PO QAM 01/07/20 02/18/20 History pantoprazole 40 mg PO QAM 01/07/20 02/18/20 History venlafaxine 150 mg PO QAM 01/07/20 02/18/20 History albuterol sulfate 2.5 mg INHALATION Q4 PRN 01/11/20 02/18/20 History fluoxetine 20 mg capsule 60 mg PO DAILY 01/11/20 02/18/20 History lidocaine 5 % topical patch 1 patch TOP DAILY 01/11/20 02/18/20 History metformin 500 mg tablet 500 mg PO DAILY tab 01/11/20 02/18/20 History [id number]-[id number]-jjfdvmtw 1 puffs INH DAILY #28 ea 01/15/20 02/18/20 Rx [Trelegy Ellipta] cyclobenzaprine 10 mg PO Q8 PRN 02/18/20 02/18/20 History metoprolol succinate [Toprol XL] 25 mg PO DAILY 02/18/20 02/18/20 History oxycodone [Roxicodone] 5 mg PO Q6 PRN 02/18/20 02/18/20 History Patient History Medical History Acid reflux Anxiety (Chronic) Asthma COPD (chronic obstructive pulmonary disease) Crohns disease (Chronic) Depressive disorder (Chronic) Diabetes mellitus, type 2 Former smoker (Resolved) History of pancreatitis Hypothyroidism (Chronic) Left lumbar radiculitis (Chronic) Lumbago (Chronic) Lung cancer Lung nodule Metabolic acidosis Myofascial pain (Chronic) On home oxygen therapy 2L O2 CONT. Osteoarthritis Psoriasis (Chronic) Sacroiliitis (Chronic) Short-term memory loss Shortness of breath PROBLEM OVER LAST THREE MONTHS/NEEDS TO REST AFTER 5 STEPS Surgical History History of adenoidectomy History of bilateral tubal ligation History of bowel resection X 2 (ILEOSTOMY) History of bronchoscopy 10/31/2018 [facility]. MAC 3, Grade 1 view. 8.5 ETT. no issues. 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 Feels Safe at Home: Yes Smoking Status: Former smoker Tobacco Type: cigarettes ; Cigarettes Per Day: 30 ; Second Hand Exposure: No ; Hx Alcohol Use: Yes Alcohol type: wine Hx Substance Use: No Review of Systems Review of Systems: Not obtained due to respiratory isolation due to possible COVID infection Physical Exam Physical Exam: Deferred to hospitalist service due to respiratory isolation for possible COVID infection and need to preserve PPE Results & Data Vital Signs (Past 12 Hours) Vital Signs Temp Pulse Pulse Resp BP BP Pulse Ox 02/19/20 07:28 36.7 C 91 H 16 93/60 L 98 02/19/20 02:51 36.6 C 98 H 16 74/45 L 98 02/18/20 23:17 36.6 C 108 H 18 77/49 L 99 02/18/20 22:15 102 H 19 92/51 L 99 Laboratory Results Laboratory Tests 02/18/20 02/18/20 02/19/20 20:03 23:23 05: WBC 8.79 Hgb 9.5 L Hct 29.1 L Plt Count 201 Sodium Potassium Chloride Carbon Dioxide BUN Creatinine Calcium Ionized Calcium 0.83 L Albumin Urine Color Dark Yellow Urine Appearance Turbid A Urine pH 5.0 Ur Specific [place] 1.025 Urine Protein 2+ H Urine Blood Negative Ur Leukocyte Esterase 1+ H Urine WBC (Auto) 10-30 H U Epithel Cells (Auto) >30 H Ur Renal Epithelial Cell 0-5 02/19/20 02/19/20 05:20 09:19 WBC Hgb Hct Plt Count Sodium 131 L Potassium 3.3 L Chloride 97 L Carbon Dioxide 21 BUN 85 H Creatinine 7.13 H* Calcium 6.6 L Ionized Calcium Albumin 2.6 L Urine Color Urine Appearance Urine pH Ur Specific [place] Urine Protein Urine Blood Ur Leukocyte Esterase Urine WBC (Auto) U Epithel Cells (Auto) Ur Renal Epithelial Cell Diagnostic Findings CXR 02/18/20: 1. Right lower lobe airspace opacity. This is concerning for a pneumonia. Recommend follow-up to resolution. 2. There is also prominence of the right hilum which could be due to underlying lymphadenopathy. Recommend follow-up to resolution. PG Care Time/CCT Total # of Minutes Spent Total Time Spent with Patient: Total time spent is greater than 50% in coordination of care (as documented) at patient's floor/unit and/or counseling patient: Coding Level of Care Code 00275 Inpt Consult Level 5 Diagnoses Acute renal failure (ARF) N17.9 Acute renal failure type: unspecified Hypotension I95.9 Metabolic acidosis E87.2 Hypocalcemia E83.51 Anemia D64.9 Pneumonia J18.9 Laterality: right Lung location: lower lobe of lung Pneumonia type: due to unspecified organism (1) Acute renal failure (ARF) Acute renal failure type: unspecified Qualified Code(s): N17.9 - Acute kidney failure, unspecified (2) Pneumonia Laterality: right Lung location: lower lobe of lung Pneumonia type: due to unspecified organism Qualified Code(s): J18.9 - Pneumonia, unspecified organism
[2020-02-19 10:16] LABS: BUN Creatinine Ratio 11.9 (10-20); Calcium 6.6 mg/dl (8.5-10.1); Creatinine Clr Calc Pharmacy 9.4 ml/min; Est GFR (Non-African American) 6.1; Potassium 3.3 mmol/L (3.5-5.1)
[2020-02-19 11:27] LABS: Appearance Urine Cloudy (Clear); Bacteria Urine Automated Negative (Negative); Bilirubin Urine Negative (Negative); Blood Urine Trace (Negative); Color Urine Yellow; Glucose Urine UA Negative (Negative); Ketones Urine Negative (Negative); Leukocyte Esterase Urine 1+ (Negative); Nitrite Urine Negative (Negative); Protein Urine 1+ (Negative); Specific Gravity Urine 1.017 (1.000-1.030); Urobilinogen Urine Negative (Negative)
[2020-02-19 11:41] LABS: Protein Creatinine Ratio Urine 0.5 (0-0.2); Total Protein Urine Random 77.3 mg/dl (0-11.9)
[2020-02-19] MEDS ORDERED: CALCIUM GLUCONATE 10% 1,000 MG in SODIUM CHLORIDE 0.9% 50 ML IV ONE (11:45)
[2020-02-19 11:53] LABS: Epithelial Cell Urine Auto 20-30 /lpf (0-5); RBC Urine Automated 0-4 /hpf (0-4); Renal Epithelial Cells Urine 0-5 /lpf (0-5)
[2020-02-19 14:06] LABS: BUN Creatinine Ratio 11.6 (10-20); Calcium 6.8 mg/dl (8.5-10.1); Creatinine Clr Calc Pharmacy 9.6 ml/min; Est GFR (African American) 7.2; Est GFR (Non-African American) 6.2; Potassium 3.7 mmol/L (3.5-5.1)
[2020-02-19] MEDS: ALBUT/IPRATROP 3MG/0.5MG NEB 3 ML VIAL NEB SCH ×2 (18:54→22:59)
[2020-02-20] MEDS: ALBUT/IPRATROP 3MG/0.5MG NEB 3 ML VIAL NEB SCH ×6 (03:08→22:12)
[2020-02-20] MEDS: PIPERACILLIN/TAZOBACTAM 3.375 GM in DEXTROSE 5% 100 ML IV SCH ×2 (04:52→17:14)
[2020-02-20 06:11] LABS: Basophils # (auto) 0.03 K/uL (0-0.2); Basophils % (auto) 0.4 %; Eosinophils # (auto) 0.07 K/uL (0-0.5); Hematocrit (blood only) 28.8 % (37-47); Hemoglobin 9.5 g/dL (12.0-16.0); Immature Granulocytes # (auto) 0.02 K/uL (0.00-0.02); Immature Granulocytes % (auto) 0.3 %; Lymphocytes # (auto) 0.97 K/uL (1.2-3.4); Lymphocytes % (auto) 13.3 %; Mean Corpuscular Hemoglobin 26.5 pg (25-34); Mean Corpuscular Volume 80.2 fL (80-100); Mean Platelet Volume 10.2 fL (7.4-10.4); Monocytes # (auto) 0.44 K/uL (0.11-0.59); Neutrophils # (auto) 5.75 K/uL (1.4-6.5); Platelet Count 209 K/uL (130-400); RDW Coefficient of Variation 17.3 % (11.5-14.5); RDW Standard Deviation 50.8 fL (36.4-46.3); Red Blood Count 3.59 M/uL (4.2-5.4); White Blood Count 7.28 K/uL (4.8-10.8)
[2020-02-20 06:49] LABS: Albumin Globulin Ratio 0.8 (0.9-2); Albumin Level 2.8 gm/dl (3.4-5.0); BUN Creatinine Ratio 15.4 (10-20); Bilirubin,Total 0.3 mg/dl (0.2-1); C Reactive Protein 1.5 mg/dl (0-0.29); Calcium 6.9 mg/dl (8.5-10.1); Creatinine Clr Calc Pharmacy 12.9 ml/min; Est GFR (African American) 10.3; Est GFR (Non-African American) 8.9; Globulin 3.5 gm/dl (2.5-4.0); Potassium 3.1 mmol/L (3.5-5.1); Total Protein 6.3 gm/dl (6.4-8.2)
[2020-02-20] MEDS: INSULIN ASPART 100 UNITS/ML 3 ML PEN SC SCH ×4 (08:08→21:20)
[2020-02-20] MEDS: PANTOprazole 40 MG TAB PO SCH (08:09)
[2020-02-20] MEDS: MEMANTINE HCL 10 MG TAB PO SCH ×2 (08:09→21:18)
[2020-02-20] MEDS: FLUOXETINE HCL 20 MG CAP PO SCH (08:09)
[2020-02-20] MEDS: ATORVASTATIN 40 MG TAB PO SCH (08:09)
[2020-02-20] MEDS: MONTELUKAST SODIUM 10 MG TABLET PO SCH (08:09)
[2020-02-20] MEDS: DONEPEZIL HCL 10 MG TAB PO SCH (08:09)
[2020-02-20] MEDS: FLUTICASONE FUROATE 100MCG 14 PUFFS/INHALER INH SCH (08:10)
[2020-02-20] MEDS: FERROUS SULFATE 325 MG TAB PO SCH (08:10)
[2020-02-20] MEDS: LIDOCAINE 5% 1 PATCH TD SCH (08:10)
[2020-02-20] MEDS: VENLAFAXINE HCL XR 150 MG CAPXR PO SCH (08:10)
[2020-02-20] MEDS: UMECLIDINIUM/VILANTEROL 62.5/25MCG 7 PUFFS/INHALER INH SCH (08:10)
[2020-02-20] MEDS: HEPARIN SOD 5,000 UNIT/0.5 ML VIAL SQ SCH ×2 (08:11→21:18)
[2020-02-20] MEDS: ACETAMINOPHEN 325 MG TAB PO PRN (08:25)
[2020-02-20] MEDS ORDERED: POTASSIUM CHLORIDE 20 MEQ TABCR PO STA (10:02)
[2020-02-20] MEDS ORDERED: SODIUM CHLORIDE 0.9% 1000ML 1,000 ML IV SCH (10:45)
--- NOTE | 2020-02-20 12:06 | Nephrology Progress Note ---
Date of Service February 20, 2020 Assessment & Plan (1) Acute renal failure (ARF): Yu was transfer from [facility] with acute kidney injury in the setting of dehydration with poor p.o. intake, pneumonia and diarrheal illness. Renal function started to improve, electrolyte abnormality is improving. Has been having decent urine output. Blood pressure still low, off of pressor and IV fluid. Volume status seems acceptable. --resume IV fluid normal saline at 75 mL/hour as patient persistently hypotensive with great urine output and high ostomy output. Encourage p.o. intake. Thank expect renal function to slowly continued to improve. --DC Dennis catheter however continue to monitor intake and output. --dose medications for GFR less than 10, avoid nephrotoxic medications. --she is at high risk for progressive worsening of renal function considering repeated episode of severe acute kidney injury over last few months. Will follow (2) Hypotension: (3) Anemia: (4) Pneumonia: (5) Hypocalcemia: Admission and Anticipated Discharge Date Admission Date: February 18, 2020 Subjective Yu was seen and evaluated in her room this morning. Overall she has been feeling well, appetite remains poor but trying to eat better. Denies shortness of breath or chest pain. Blood pressure remained low. Has been having decent urine output. Renal function continues to improve. Review of Systems Review of Systems: All systems reviewed & are unremarkable except as noted in HPI & below Physical Exam Constitutional: WD/WN, vitals as above no acute distress Neck: normal visual inspection Respiratory: normal respiratory effort, lungs clear to auscultation Cardiovascular: RRR, no murmur, no edema Skin: no rashes, warm and dry Neurologic: awake; no focal motor deficits and not confused Psychiatric: A+Ox3, euthymic affect Results & Data ([facility]) Vital Signs (Past 12 Hours) Vital Signs Temp Pulse Pulse Resp BP Pulse Ox 02/20/20 11:50 36.4 C L 102 H 18 97/67 L 96 02/20/20 11:06 102 H 18 95 02/20/20 08:00 101 H 02/20/20 07:34 36.6 C 101 H 17 95/61 L 93 02/20/20 07:06 101 H 18 90 02/20/20 03:08 101 H 16 96 02/20/20 02:58 36.7 C 104 H 20 96/63 L 96 PG Care Time/CCT Total # of Minutes Spent Total Time Spent with Patient: Total time spent is greater than 50% in coordination of care (as documented) at patient's floor/unit and/or counseling patient: Coding Level of Care Code 21174 Subseq Hosp Care Lvl 3 Diagnoses Acute renal failure (ARF) N17.9 Acute renal failure type: unspecified Hypotension I95.9 Anemia D64.9 Pneumonia J18.9 Laterality: right Lung location: lower lobe of lung Pneumonia type: due to unspecified organism Hypocalcemia E83.51 (1) Acute renal failure (ARF) Acute renal failure type: unspecified Qualified Code(s): N17.9 - Acute kidney failure, unspecified (2) Pneumonia Laterality: right Lung location: lower lobe of lung Pneumonia type: due to unspecified organism Qualified Code(s): J18.9 - Pneumonia, unspecified organism
--- NOTE | 2020-02-20 13:15 | Hospitalist Progress Note ---
Date of Service February 20, 2020 Assessment & Plan (1) Acute renal failure (ARF): Appreciate nephrology oversight conservative management for ATN from severe volume loss from diarrhea Continue to recommend supportive care no need for invasive dialysis -Dennis catheter with strict I/O monitoring now has had some increased urinary output Because the patient is taking p.o. well will have 1 more liter of fluid only because she is having increased output of stool discontinue IV fluids after this (2) Pneumonia: Patient with small peripheral groundglass densities in the right base noted on her CT Abdomen. recently hospitalized for CAP and treated with Cefdinir and Doxycycline. MRSA negative Patient has a negative bio Auditude respiratory panel and negative COVID testing resulted from [facility] Patient has very little pulmonary symptoms nonproductive coughing which he says is overall improved from last discharge She is initiated and remains on Zosyn therapy, on 02/19 she remains without significant pulmonary symptoms CT scan chest from the [facility] 02/16/2020 reads few groundglass opacities in the right suprahilar region adjacent to the surgical bed and in the periphery of the right lower lobe plus posteriorly in the left lower lobe there is no associated effusion or endobronchial lesions there is a stable postoperative lobulated retrosternal mass which is unchanged in size at 2.[address] Abdomen and Pelvis IMPRESSION: 1. Prior subtotal colectomy with a left lower quadrant ileostomy. 2. No definite bowel wall thickening or obstruction. 3. Cholecystectomy. 4. Bilateral nephrolithiasis. No ureteral stones. No hydronephrosis. 5. The bladder is decompressed by a Dennis catheter. 6. A few peripheral groundglass nodular densities within the right lung base which favors a mild infectious bronchiolitis. (3) Hypothyroidism: Documented history of hypothyroidism. However, TSH and T4 have been within normal limits. Patient not on levothyroxine. -Noted (4) COPD (chronic obstructive pulmonary disease): Patient with adequate oxygenation, no respiratory distress Patient is had improvement with nebulizers did not use steroids at this time. -Continue Umeclidinium/Vilanterol -Continue Singulair (5) Diabetes mellitus, type 2: Blood sugar variable with highs of 200s continue covering with sliding scale. Recent A1C=7.8 (6) Crohns disease: Patient s/p ileostomy now with increased output -Continue to monitor output, if output becomes an issue may consider motility slowing agents patient had a negative C. difficile on presentation during this admission Ppx - Heparin Code - Full Dispo -Admit to PCU (7) Hypotension: Hypotension secondary hypovolemic shock resuscitated with fluids and improved Admission and Anticipated Discharge Date Admission Date: February 18, 2020 Subjective This is a 49-year-old female with PMHx of mucinous adenocarcinoma of the lung, diagnosed in 2019 s/p RUL wedge resection by Dr. Jeter on 12/05/2018, aspergillus infection, remote smoking history of 10 years, quit 20 years ago, COPD, obesity, Crohn's disease s/p ileostomy, history of acute renal insufficiency and HTN, DM type II, osteoarthritis, hypothyroidism, chronic lower back pain. This patient presents as a transfer from [facility] with acute renal failure, hypotension likely from hypovolemic shock, pending COVID testing which subsequently has resulted negative, an outpatient significant diarrheal illness which likely led to her renal failure. Patient feels much better on 02/19 she still has some increased ostomy output will have 1 more liter of fluid given under the supervision of nephrology. Her creatinine is improved she is now hypokalemic she overall feels somewhat better. She has no further pulmonary complaints Review of Systems Review of Systems: Mild distress and fatigue no headache, blurry or double vision no speech or swallowing issues no chest pain, pressure or palpitations no shortness of breath, nonproductive cough she does have diffuse wheezes no abdominal pain, nausea or vomiting, diarrhea has lessened but not yet returned to her normal consistency no dysuria, hematuria or frequency no focal joint pain or swelling no back pain, CVA tenderness or radicular pain no bruising, bleeding or rashes no focal signs of weakness or numbness or altered sensation no complaints or anxiety or depression Physical Exam Physical Exam: The patient appeared well nourished and normally developed. Patient is in mild distress Vital signs as documented. Head exam is normocephalic atraumatic no scleral icterus Neck is without JVD, thyromegaly, or carotid bruits. Lungs are wheezes have resolved right lung with rhonchi Cardiac exam, Rhythm is regular.. No murmurs, rubs or gallops. Abdominal exam reveals normal bowel sounds, soft non tender, no masses ostomy is functioning well but filled with liquid Extremities are nonedematous and both pedal pulses are normal. Neurologic exam is alert and oriented, no focal loss of strength or sensation Skin is without bruises or rashes Psychologically is without concerns for anxiety or depression Results & Data Results & Data ([facility]) Vital Signs (Past 12 Hours) Vital Signs Temp Pulse Pulse Resp BP Pulse Ox 02/20/20 11:50 97.5 F L 102 H 18 97/67 L 96 02/20/20 11:06 102 H 18 95 02/20/20 08:00 101 H 02/20/20 07:34 97.9 F 101 H 17 95/61 L 93 02/20/20 07:06 101 H 18 90 02/20/20 03:08 101 H 16 96 02/20/20 02:58 98.1 F 104 H 20 96/63 L 96 PG Care Time/CCT Total # of Minutes Spent Total Time Spent with Patient: Total time spent is greater than 50% in coordination of care (as documented) at patient's floor/unit and/or counseling patient: Coding Level of Care Code 31435 Subseq Hosp Care Lvl 3 Diagnoses Acute renal failure (ARF) N17.9 Acute renal failure type: unspecified Pneumonia J18.9 Laterality: right Lung location: lower lobe of lung Pneumonia type: due to unspecified organism Hypothyroidism E03.9 Hypothyroidism type: unspecified COPD (chronic obstructive pulmonary disease) J44.9 COPD type: unspecified COPD Diabetes mellitus, type 2 E11.9 Diabetes mellitus nursing home insulin use: without nursing home use Diabetes mellitus complication status: without complication Crohns disease K50.919 Gastrointestinal tract location: unspecified location Digestive disease complication type: unspecified complication Hypotension I95.9 (1) Acute renal failure (ARF) Acute renal failure type: unspecified Qualified Code(s): N17.9 - Acute kidney failure, unspecified (2) Pneumonia Laterality: right Lung location: lower lobe of lung Pneumonia type: due to unspecified organism Qualified Code(s): J18.9 - Pneumonia, unspecified organism (3) Hypothyroidism Hypothyroidism type: unspecified Qualified Code(s): E03.9 - Hypothyroidism, unspecified (4) COPD (chronic obstructive pulmonary disease) COPD type: unspecified COPD Qualified Code(s): J44.9 - Chronic obstructive pulmonary disease, unspecified (5) Diabetes mellitus, type 2 Diabetes mellitus nursing home insulin use: without moth exterminator use Diabetes mellitus complication status: without complication Qualified Code(s): E11.9 - Type 2 diabetes mellitus without complications (6) Crohns disease Gastrointestinal tract location: unspecified location Digestive disease complication type: unspecified complication Qualified Code(s): K50.919 - Crohn's disease, unspecified, with unspecified complications
[2020-02-21] MEDS: ALBUT/IPRATROP 3MG/0.5MG NEB 3 ML VIAL NEB SCH ×3 (03:12→11:00)
[2020-02-21] MEDS: ACETAMINOPHEN 325 MG TAB PO PRN (03:16)
[2020-02-21] MEDS: PIPERACILLIN/TAZOBACTAM 3.375 GM in DEXTROSE 5% 100 ML IV SCH (03:16)
[2020-02-21 06:42] LABS: BUN Creatinine Ratio 20.4 (10-20); Calcium 7.4 mg/dl (8.5-10.1); Creatinine Clr Calc Pharmacy 26.3 ml/min; Est GFR (African American) 24.8; Est GFR (Non-African American) 21.4; Potassium 3.5 mmol/L (3.5-5.1)
--- NOTE | 2020-02-21 07:13 | Hospitalist Progress Note ---
Date of Service February 21, 2020 Assessment & Plan (1) Acute renal failure (ARF): Appreciate nephrology oversight conservative management for ATN from severe volume loss from diarrhea Pt has had dramatic improvement with Cr lower to 2.5, electrolytes are in normal range (2) Pneumonia: Patient with small peripheral groundglass densities in the right base noted on her CT Abdomen. recently hospitalized for CAP and treated with Cefdinir and Doxycycline. MRSA negative Patient has a negative bio fire respiratory panel and negative COVID testing resulted from [facility] Patient has very little pulmonary symptoms nonproductive coughing which he says is overall improved from last discharge She is initiated and remains on Zosyn therapy, since she has been improving will transition to po meds, Augmentin CT scan chest from the [facility] 02/16/2020 reads few ground glass opacities in the right suprahilar region adjacent to the surgical bed and in the periphery of the right lower lobe plus posteriorly in the left lower lobe there is no associated effusion or endobronchial lesions there is a stable postoperative lobulated retrosternal mass which is unchanged in size at 2.[address] Abdomen and Pelvis IMPRESSION: 1. Prior subtotal colectomy with a left lower quadrant ileostomy. 2. No definite bowel wall thickening or obstruction. 3. Cholecystectomy. 4. Bilateral nephrolithiasis. No ureteral stones. No hydronephrosis. 5. The bladder is decompressed by a Dennis catheter. 6. A few peripheral groundglass nodular densities within the right lung base which favors a mild infectious bronchiolitis. (3) COPD (chronic obstructive pulmonary disease): Patient with adequate oxygenation, no respiratory distress Patient is had improvement with nebulizers did not use steroids at this time. -Continue Umeclidinium/Vilanterol -Continue Singulair (4) Diabetes mellitus, type 2: Blood sugar variable with highs of 200s continue covering with sliding scale. Recent A1C=7.8 (5) Crohns disease: Patient s/p ileostomy now with increased output -Continue to monitor output, if output becomes an issue may consider motility slowing agents patient had a negative C. difficile on presentation during this admission Ppx - Heparin Code - Full Dispo -Admit to PCU (6) Hypotension: Hypotension secondary hypovolemic shock resuscitated with fluids and, RESOLVED (7) Hypothyroidism: Documented history of hypothyroidism. However, TSH and T4 have been within normal limits. Patient not on levothyroxine. -Noted Admission and Anticipated Discharge Date Admission Date: February 18, 2020 Results & Data Results & Data ([facility]) Vital Signs (Past 12 Hours) Vital Signs Temp Pulse Resp BP Pulse Ox 02/21/20 04:00 98.4 F 105 H 18 107/72 97 02/20/20 23:54 99.0 F 107 H 17 103/67 95 02/20/20 22:12 109 H 16 96 PG Care Time/CCT Total # of Minutes Spent Total Time Spent with Patient: Total time spent is greater than 50% in coordination of care (as documented) at patient's floor/unit and/or counseling patient: Coding Diagnoses Acute renal failure (ARF) N17.9 Acute renal failure type: unspecified Pneumonia J18.9 Laterality: right Lung location: lower lobe of lung Pneumonia type: due to unspecified organism COPD (chronic obstructive pulmonary disease) J44.9 COPD type: unspecified COPD Diabetes mellitus, type 2 E11.9 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 mellitus 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 project 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 insulin use: without long-term use Diabetes mellitus complication status: without complication Crohns disease K50.919 Gastrointestinal tract location: unspecified location Digestive disease complication type: unspecified complication Hypotension I95.9 Hypothyroidism E03.9 Hypothyroidism type: unspecified (1) Acute renal failure (ARF) Acute renal failure type: unspecified Qualified Code(s): N17.9 - Acute kidney failure, unspecified (2) Pneumonia Laterality: right Lung location: lower lobe of lung Pneumonia type: due to unspecified organism Qualified Code(s): J18.9 - Pneumonia, unspecified organism (3) Hypothyroidism Hypothyroidism type: unspecified Qualified Code(s): E03.9 - Hypothyroidism, unspecified (4) COPD (chronic obstructive pulmonary disease) COPD type: unspecified COPD Qualified Code(s): J44.9 - Chronic obstructive pulmonary disease, unspecified (5) Diabetes mellitus, type 2 Diabetes mellitus long-term insulin use: without long-term use Diabetes mellitus complication status: without complication Qualified Code(s): E11.9 - Type 2 diabetes mellitus without complications (6) Crohns disease Gastrointestinal tract location: unspecified location Digestive disease complication type: unspecified complication Qualified Code(s): K50.919 - Crohn's disease, unspecified, with unspecified complications
[2020-02-21] MEDS ORDERED: AMOXICILLIN/CLAVULANATE 500 MG TAB PO SCH (08:00)
[2020-02-21] MEDS: FLUOXETINE HCL 20 MG CAP PO SCH (08:26)
[2020-02-21] MEDS: MEMANTINE HCL 10 MG TAB PO SCH (08:27)
[2020-02-21] MEDS: MONTELUKAST SODIUM 10 MG TABLET PO SCH (08:27)
[2020-02-21] MEDS: FERROUS SULFATE 325 MG TAB PO SCH (08:28)
[2020-02-21] MEDS: DONEPEZIL HCL 10 MG TAB PO SCH (08:28)
[2020-02-21] MEDS: PANTOprazole 40 MG TAB PO SCH (08:28)
[2020-02-21] MEDS: FLUTICASONE FUROATE 100MCG 14 PUFFS/INHALER INH SCH (08:28)
[2020-02-21] MEDS: ATORVASTATIN 40 MG TAB PO SCH (08:28)
[2020-02-21] MEDS: VENLAFAXINE HCL XR 150 MG CAPXR PO SCH (08:28)
[2020-02-21] MEDS: HEPARIN SOD 5,000 UNIT/0.5 ML VIAL SQ SCH (08:29)
[2020-02-21] MEDS: UMECLIDINIUM/VILANTEROL 62.5/25MCG 7 PUFFS/INHALER INH SCH (08:29)
[2020-02-21] MEDS: LIDOCAINE 5% 1 PATCH TD SCH (08:29)
[2020-02-21] MEDS: INSULIN ASPART 100 UNITS/ML 3 ML PEN SC SCH ×2 (08:31→12:21)
--- NOTE | 2020-02-21 11:44 | Nephrology Progress Note ---
Date of Service February 21, 2020 Assessment & Plan (1) Acute renal failure (ARF): Yu was transfer from [facility] with acute kidney injury in the setting of dehydration with poor p.o. intake, pneumonia and diarrheal illness. Renal function started to improve, electrolyte abnormality is improving. Has been having decent urine output. Blood pressure still low, off of pressor and IV fluid. Volume status seems acceptable. Overall doing well contact edema, clinically improved, blood pressure, electrolyte acceptable. Rapidly improving renal function. Decent urine output after Dennis catheter disease yesterday. Antibiotics switched to Augmentin. --okay to be discharged at patient's request with close outpatient lab monitoring, recommend renal panel in 2 days and again in a week and follow-up with Dr. Salgado in 3-4 weeks. --encourage patient to keep well hydrated while at home, avoid nephrotoxic medications including all NSAIDs. Will follow while inpatient (2) Hypotension: -- Currently on IV Norepinephrine. Recommend titrating to maintain MAP 65 mmHg -- If further volume resuscitation needed recommend using a balanced crystalloid solution such as Normosol (3) Anemia: -- Possibly dilutional related to 4 L volume resuscitation overnight -- Will order CBC w/ diff for am (4) Pneumonia: -- CXR and CT show RLL peripheral infiltrate -- Biofire testing was negative. Blood cultures are pending -- Await COVID-19 test results. Consider repeat testing after 24 hours -- Will order CRP (5) Hypocalcemia: -- Corrected serum calcium remains low. Will provide IV Ca gluconate this am and monitor levels Admission and Anticipated Discharge Date Admission Date: February 18, 2020 Chacho Maxwell was seen and examined in her room this morning. Overall clinically improved and seems to be at her baseline. Blood pressure stable. Denies shortness of breath, chest pain, fever chills or dysuria. Renal function continues to improve rapidly, creatinine down to 3.5, electrolyte acceptable. Has been voiding normally. Appetite decent. Review of Systems Review of Systems: All systems reviewed & are unremarkable except as noted in HPI & below Physical Exam Constitutional: WD/WN, vitals as above no acute distress Neck: normal visual inspection Respiratory: normal respiratory effort, lungs clear to auscultation Cardiovascular: RRR, no murmur, no edema Skin: no rashes, warm and dry Neurologic: awake; no focal motor deficits and not confused Psychiatric: A+Ox3, euthymic affect Results & Data ([facility]) Vital Signs (Past 12 Hours) Vital Signs Temp Pulse Pulse Resp BP Pulse Ox 02/21/20 11:22 37.0 C 106 H 18 125/83 97 02/21/20 11:00 103 H 16 98 02/21/20 08:00 104 H 02/21/20 07:18 36.6 C 95 H 16 94/65 L 94 02/21/20 07:09 93 H 16 97 02/21/20 04:00 36.9 C 105 H 18 107/72 97 02/20/20 23:54 37.2 C 107 H 17 103/67 95 PG Care Time/CCT Total # of Minutes Spent Total Time Spent with Patient: Total time spent is greater than 50% in coordination of care (as documented) at patient's floor/unit and/or counseling patient: Coding Level of Care Code 09325 Subseq Hosp Care Lvl 3 Diagnoses Acute renal failure (ARF) N17.9 Acute renal failure type: unspecified Hypotension I95.9 Anemia D64.9 Pneumonia J18.9 Laterality: right Lung location: lower lobe of lung Pneumonia type: due to unspecified organism Hypocalcemia E83.51 (1) Acute renal failure (ARF) Acute renal failure type: unspecified Qualified Code(s): N17.9 - Acute kidney failure, unspecified (2) Pneumonia Laterality: right Lung location: lower lobe of lung Pneumonia type: due to unspecified organism Qualified Code(s): J18.9 - Pneumonia, unspecified organism
--- NOTE | 2020-02-21 12:01 | Discharge Summary ---
Date of Service February 21, 2020 Admission HPI Per Admitting Provider Yu Isidro is a 49yo C female with multiple medical problems presenting with 1 week of cough/SOB and chest tightness. Also with diffuse weakness, nausea, vomiting, poor PO intake and increased liquid output from her ileostomy. She has associated dizziness with positional changes. Patient was seen at [facility] yesterday and had a CT scan of her chest as well as Covid-19 testing performed Patient denies recent travel, no sick contacts, no contact with Covid-19 positive individual Principal Diagnosis Acute kidney injury secondary to acute tubular necrosis secondary to diarrhea Patient had negative C. difficile testing Persistent treatment for healthcare associated pneumonia Discharge Exam The patient appeared well Vital signs as documented. Lungs are clear to auscultation and appear unlabored, wheezes have resolved Cardiac exam, Rhythm is regular.. No murmurs, rubs or gallops. Abdominal exam reveals normal bowel sounds, soft non tender, no masses, ileostomy is with normal output on 5/10 Extremities are nonedematous and both pedal pulses are normal. Neurologic exam is alert and oriented, no focal loss of strength or sensation Skin is without bruises or rashes Psychologically is without concerns for anxiety or depression Discharge Data Allergies Allergy/AdvReac Type Severity Reaction Status Date / Time No Known Allergies Allergy Verified 02/18/20 19:32 Consultations 02/18/20 21:38 ED Decision to Admit Stat 02/18/20 22:48 Consult Nephrology Routine Ordered Studies 02/18/20 18:31 CT abd pelvis wo con Stat Hospital Course (1) Acute renal failure (ARF): Appreciate nephrology oversight conservative management for ATN from severe volume loss from diarrhea Pt has had dramatic improvement with Cr lower to 2.5, electrolytes are in normal range after discussion patient be discharged home with outpatient laboratory sent to Dr. Josesito Salgado (2) Pneumonia: Patient with small peripheral groundglass densities in the right base noted on her CT Abdomen. recently hospitalized for CAP and treated with Cefdinir and Doxycycline. MRSA negative Patient has a negative bio [place] respiratory panel and negative COVID testing resulted from [facility] Patient has very little pulmonary symptoms nonproductive coughing which he says is overall improved from last discharge She is initiated and remains on Zosyn therapy, since she has been improving will transition to po meds, Augmentin will complete [address] scan chest from the [facility] 02/16/2020 reads few ground glass opacities in the right suprahilar region adjacent to the surgical bed and in the periphery of the right lower lobe plus posteriorly in the left lower lobe there is no associated effusion or endobronchial lesions there is a stable postoperative lobulated retrosternal mass which is unchanged in size at 2.7 x 1.7 cm would recommend follow-up with pulmonary medicine CT Abdomen and Pelvis IMPRESSION: 1. Prior subtotal colectomy with a left lower quadrant ileostomy. 2. No definite bowel wall thickening or obstruction. 3. Cholecystectomy. 4. Bilateral nephrolithiasis. No ureteral stones. No hydronephrosis. 5. The bladder is decompressed by a Dennis catheter. 6. A few peripheral groundglass nodular densities within the right lung base which favors a mild infectious bronchiolitis. (3) COPD (chronic obstructive pulmonary disease): Patient with adequate oxygenation, no respiratory distress Patient is had improvement with nebulizers did not use steroids at this time. -Continue Umeclidinium/Vilanterol -Continue Singulair -Patient has home nebulizer machine to use albuterol (4) Diabetes mellitus, type 2: Blood sugar variable with highs of 200s continue covering with sliding scale. Recent A1C=7.8 With kidney function is still not completely normal range we will continue to ask her to hold her metformin and have a carbohydrate Spartan diet at home (5) Crohns disease: Patient s/p ileostomy now with output return to her normal state - patient had a negative C. difficile on presentation during this admission Ppx - Heparin Code - Full Dispo -Admit to PCU (6) Hypotension: Hypotension secondary hypovolemic shock resuscitated with fluids and, RESOLVED (7) Hypothyroidism: Documented history of hypothyroidism. However, TSH and T4 have been within normal limits. Patient not on levothyroxine. -Noted Total Time Total Time Spent Total Time Spent (In Minutes): It required greater than 30 minutes to prepare this patient for discharge Discharge Plan Discharge Items Patient Disposition: Home - Self-Care Reason For Visit: MISTY Discharge Diagnosis: Acute kidney injury secondary to diarrhea Resolving pneumonia Negative COVID-19 test Activity: Resume your previous activity Non-emergency contact: Primary Care Provider Call non-emergency contact if: you have any medication questions and your symptoms worsen Follow-up/Referrals: Jose Raul Allen [Primary Care Provider] - Diet: Carb Consistent or DM2 Ambulatory Orders: Basic Metabolic Panel (Routine) Timeframe: 2 Days Location: Determined by Patient Ordered By: Bandar Crain Attending Provider Instructions: Please hydrate at rest and eat a healthy diet. Please have laboratory checked on Saturday and this week and then further instructions per Dr. Josesito Salgado Please will follow appointment with your primary care provider within the next 1 week Patient kidney function returns to normal regarding asked you to hold your metformin medication. During this timeframe we have will ask you to be even more conservative with sugary and high carbohydrate meals. If you have a glucometer at home would ask you to check your blood sugar daily and call your provider if greater than 250. Once you have results indicated by Dr. Machado your renal function has returned to normal do asked him about resumption of your metformin Pending Studies at Discharge: No Stand-Alone Forms: My [facility] [employer], Smoking Cessation Medications and DC Order Prescriptions: New amoxicillin-pot clavulanate [Augmentin] 875-125 mg tablet 1 tab PO BID Qty: 10 RF: 0 Continued donepezil [Aricept] 10 mg tablet 10 mg PO QAM RF: 0 montelukast [Singulair] 10 mg tablet 10 mg PO QAM RF: 0 cholecalciferol (vitamin D3) 1,000 unit capsule 6,000 units PO DAILY RF: 0 ferrous sulfate 325 mg (65 mg iron) tablet 325 mg PO DAILY RF: 0 atorvastatin 40 mg tablet 40 mg PO DAILY RF: 0 albuterol sulfate 2.5 mg /3 mL (0.083 %) solution for nebulization 2.5 mg inhalation Q4 PRN (Reason: Shortness Of Breath Or Wheezing) RF: 0 lidocaine 5 % adhesive patch,medicated 1 patch TOP DAILY RF: 0 fluoxetine 20 mg capsule 60 mg PO DAILY RF: 0 sodium chloride [Hyper-Sebastian] 7 % solution for nebulization 4 ml INH BID Qty: 240 RF: 5 memantine [Namenda] 10 mg tablet 10 mg PO BID RF: 0 uofxqzedylo-lodgunvmu-mayygoms [Trelegy Ellipta] 100-62.5-25 mcg blister with device 1 inh inhalation DAILY RF: 0 venlafaxine 150 mg capsule,extended release 24hr 150 mg PO QAM RF: 0 pantoprazole 40 mg tablet,delayed release (DR/EC) 40 mg PO QAM RF: 0 cyanocobalamin (vitamin B-12) 1,000 mcg/mL solution 1,000 mcg IM MONTHLY RF: 0 Stelara 90 mg/mL syringe 90 mg SUBCUT .Q3 MONTHS RF: 0 Trelegy Ellipta 100-62.5-25 mcg blister with device 1 puffs INH DAILY Qty: 28 RF: 0 albuterol sulfate 90 mcg/actuation Hfa Aerosol Inhaler 1 - 2 puff INHALATION Q6H PRN (Reason: Shortness Of Breath) RF: 0 metoprolol succinate [Toprol XL] 25 mg tablet extended release 24 hr 25 mg PO DAILY RF: 0 oxycodone [Roxicodone] 5 mg tablet 5 mg PO Q6 PRN (Reason: Pain) RF: 0 Discontinued metformin 500 mg tablet 1,000 mg PO QAM RF: 0 metformin 500 mg tablet 500 mg PO DAILY RF: 0 cyclobenzaprine 10 mg tablet 10 mg PO Q8 PRN (Reason: muscle spasms) RF: 0 Discharge Orders: Discharge Order (Routine); Ordered 02/21/20 Ordered By: Bandar Anne Admission Data Admit Date/Time: 02/18/20 21:48 Attending Provider: Bandar Anne Admit Provider: Tiffanie Maxwell Primary Care Provider: Jose Raul Allen Other Providers: Tiffanie Maxwell ; Josesito Salgado Coding Level of Care Code D/C Day Management >30 mins Diagnoses Acute renal failure (ARF) N17.9 Acute renal failure type: unspecified Pneumonia J18.9 Laterality: right Lung location: lower lobe of lung Pneumonia type: due to unspecified organism COPD (chronic obstructive pulmonary disease) J44.9 COPD type: unspecified COPD Diabetes mellitus, type 2 E11.9 Diabetes mellitus intermission coordinator insulin use: without chcf use Diabetes mellitus complication status: without complication Crohns disease K50.919 Gastrointestinal tract location: unspecified location Digestive disease complication type: unspecified complication Hypotension I95.9 Hypothyroidism E03.9 Hypothyroidism type: unspecified
[2020-03-01] MEDS ORDERED: MoRPHine SULFATE 2 MG/ML CARP ONE (01:47)
== END 2020-02-21 14:45 | disposition home or self-care (01) | DRG 682 ==
LOC: ED 16:45 → 2S 21:48 → SUATTDRO 21:48 → 2S 22:23

== ENCOUNTER 2020-02-26 21:17 | Observation (INO) ==
[2020-02-26] MEDS ORDERED: SODIUM CHLORIDE 0.9% 1000ML 1,000 ML IV SCH ×2 (21:45→23:00)
--- NOTE | 2020-02-26 21:54 | Emergency Department Note ---
History of Present Illness General Chief complaint: Urinary Symptoms Stated complaint: TROUBLE URINATING WEAKNESS Time Seen by Provider: 02/26/20 21:30 History of Present Illness Maximum Pain Intensity: 5 This is a 49-year-old female that presents to the emergency department via private vehicle with complaints of "trouble urinating, weakness". Patient has a significant past medical history for that of asthma, Crohn's disease, type 2 diabetes, history of partial lung resection with recent admission secondary to MISTY on 02/18/2020. Patient states that following discharge she has felt slightly better but now continues to trend with increased weakness describing it as generalized significant fatigue to a point where ADLs are difficult. No chest pain. She does feel short of breath with mild activities but this is similar to previous when she was admitted. No alleviating factors. No speech troubles or strokelike symptoms. No cauda equina syndrome symptoms. No fevers. She does feel slightly chilled. Patient describes also some mild back pain on the right side today 02/20. She underwent coronavirus testing x2 in the recent past of which were negative. Home Medications Home Medications Medication Instructions Recorded Confirmed Type cholecalciferol (vitamin D3) 25 6,000 units PO QAM cap 07/15/18 02/26/20 History mcg (1,000 unit) capsule donepezil 10 mg tablet 10 mg PO QAM 07/15/18 02/26/20 History montelukast 10 mg tablet 10 mg PO QAM 07/15/18 02/26/20 History albuterol sulfate [Ventolin HFA] 1 - 2 puff INHALATION Q6H PRN 10/20/18 02/26/20 History atorvastatin 40 mg tablet 40 mg PO QAM 05/26/19 02/26/20 History ferrous sulfate 325 mg (65 mg 325 mg PO QDL tab 05/26/19 02/26/20 History iron) tablet memantine 10 mg tablet 10 mg PO BID tab 08/03/19 02/26/20 History Stelara 90 mg SUBCUT .[id number] 01/07/20 02/26/20 History cyanocobalamin (vitamin B-12) 1,000 mcg IM MONTHLY 01/07/20 02/26/20 History pantoprazole [Protonix] 40 mg PO QAM 01/07/20 02/26/20 History venlafaxine [Effexor XR] 150 mg PO QAM 01/07/20 02/26/20 History albuterol sulfate 2.5 mg INHALATION Q4 PRN 01/11/20 02/26/20 History fluoxetine 20 mg capsule 60 mg PO QAM 01/11/20 02/26/20 History lidocaine 5 % topical patch 1 patch TOP DAILY PRN 01/11/20 02/26/20 History metoprolol succinate [Toprol XL] 25 mg PO QAM 02/18/20 02/26/20 History oxycodone [Roxicodone] 5 mg PO Q6H PRN 02/18/20 02/26/20 History amoxicillin-pot clavulanate 1 tab PO BID #10 tab 02/21/20 02/26/20 Rx [Augmentin] Trelegy Ellipta 1 puffs INH QAM 02/26/20 02/26/20 History cyclobenzaprine 10 mg PO Q8H PRN 02/26/20 02/26/20 History nortriptyline [Pamelor] 25 mg PO BID 02/26/20 02/26/20 History Allergies Allergy/AdvReac Type Severity Reaction Status Date / Time No Known Allergies Allergy Verified 02/26/20 23:08 Past Med/Surg History Medical History Acid reflux Anxiety (Chronic) Asthma COPD (chronic obstructive pulmonary disease) Crohns disease (Chronic) Depressive disorder (Chronic) Diabetes mellitus, type 2 Former smoker (Resolved) History of pancreatitis Left lumbar radiculitis (Chronic) Lumbago (Chronic) Lung cancer Lung nodule Metabolic acidosis Myofascial pain (Chronic) On home oxygen therapy 2L O2 CONT. Osteoarthritis Psoriasis (Chronic) Sacroiliitis (Chronic) Short-term memory loss Shortness of breath PROBLEM OVER LAST THREE MONTHS/NEEDS TO REST AFTER 5 STEPS Surgical History History of adenoidectomy History of bilateral tubal ligation History of bowel resection X 2 (ILEOSTOMY) History of bronchoscopy 10/31/2018 [facility]. MAC 3, Grade 1 view. 8.5 ETT. no issues. History of carpal tunnel release of both wrists History of cholecystectomy History of colonoscopy History of herniorrhaphy History of ileostomy (Resolved) X2 History of lobectomy of lung LUNG MASS REMOVED History of lung surgery wedge of RUL 2/6 History of myringotomy History of thyroidectomy, subtotal History of tonsillectomy History of tooth extraction S/P thyroidectomy (Deleted 01/07/14) Family History Aunt Family history of breast cancer Mother Family history of diabetes mellitus Social History Preferred Language: [place] Communication Ability: Effective Visual Impairment: No Limitations [employer]ist Required: No Beliefs That Will Affect Care: None marital status: Life Partner Current Living Situation: Family and Significant Other Current Living Situation Comment: son, daughter, and SO. Feels Safe at Home: Yes Smoking Status: Former smoker Tobacco Type: cigarettes ; Cigarettes Per Day: 30 ; Second Hand Exposure: No ; Hx Alcohol Use: Yes Alcohol type: wine Hx Substance Use: No Review of Systems A total of 10 systems reviewed and were otherwise negative Physical Exam Vital Signs Vital Signs - 24 hr 02/26/20 21:19 02/26/20 22:28 02/26/20 22:30 Temperature 36.5 C Temperature Source Oral Pulse Rate 97 H 85 87 Pulse Rate [Apical] Pulse Rate from SpO2 Sensor 85 87 Pulse Rhythm [Apical] Respiratory Rate 19 16 19 Respiratory Effort / Characteristics Respiratory Depth Blood Pressure 92/60 L 82/59 L 87/50 L Blood Pressure [Right Arm] Blood Pressure Mean 70 67 64 Blood Pressure Mean [Right Arm] Pulse Oximetry 99 98 98 Oxygen Delivery Method Sepsis Recent Fever Within 48 Hours No Sepsis Action Taken by Nursing No Action Required 02/26/20 22:31 02/26/20 23:46 02/27/20 00:00 Temperature Temperature Source Pulse Rate 90 85 Pulse Rate [Apical] 84 Pulse Rate from SpO2 Sensor 89 85 Pulse Rhythm [Apical] Regular Respiratory Rate 19 16 22 Respiratory Effort / Characteristics Non-Labored Spontaneous Respiratory Depth Normal Blood Pressure 86/52 L Blood Pressure [Right Arm] 80/51 L Blood Pressure Mean 63 Blood Pressure Mean [Right Arm] 60 Pulse Oximetry 98 99 99 Oxygen Delivery Method Room Air Sepsis Recent Fever Within 48 Hours Sepsis Action Taken by Nursing 02/27/20 00:04 02/27/20 00:38 02/27/20 00:45 Temperature Temperature Source Pulse Rate 98 H 94 H Pulse Rate [Apical] 86 Pulse Rate from SpO2 Sensor 100 H 95 H Pulse Rhythm [Apical] Respiratory Rate 18 25 H 20 Respiratory Effort / Characteristics Non-Labored Spontaneous Respiratory Depth Blood Pressure 91/57 L Blood Pressure [Right Arm] Blood Pressure Mean 65 Blood Pressure Mean [Right Arm] Pulse Oximetry 99 99 100 Oxygen Delivery Method Room Air Sepsis Recent Fever Within 48 Hours Sepsis Action Taken by Nursing 02/27/20 01:00 Temperature Temperature Source Pulse Rate 94 H Pulse Rate [Apical] Pulse Rate from SpO2 Sensor 94 H Pulse Rhythm [Apical] Respiratory Rate 19 Respiratory Effort / Characteristics Respiratory Depth Blood Pressure 94/57 L Blood Pressure [Right Arm] Blood Pressure Mean 63 Blood Pressure Mean [Right Arm] Pulse Oximetry 100 Oxygen Delivery Method Sepsis Recent Fever Within 48 Hours Sepsis Action Taken by Nursing VITAL SIGNS - Vital signs and nursing notes were reviewed. Mildly hypotensive, borderline tachycardic, otherwise stable. GENERAL -49-year-old female her appearing stated age who is in no acute distress. Communicates well with provider and answers questions appropriately. SKIN - Without rashes. No meningeal or petechial rash. HEAD - NC/AT. EYES - PERRL with EOMI bilaterally. Sclera anicteric. EARS - No deformities of external structures noted on gross examination bilaterally. NOSE - Midline and without cyanosis. No epistaxis or purulent drainage noted. MOUTH/OROPHARYNX - Without perioral cyanosis. Buccal mucosa pink and moist and without leukoplakia. Tongue midline with equal elevation of palate bilaterally. No tonsillar hypertrophy, erythema, or exudates noted. Good dentition noted. NECK - Neck with FROM. Supple to palpation. No lymphadenopathy noted. No nuchal rigidity. LUNGS - Chest wall symmetric without accessory muscle use, intercostals retractions, or central cyanosis. Normal vesicular breath sounds CTA B/L. No wheezes, rales, or rhonchi appreciated. CARDIAC - RRR with S1/S2. No murmur, rubs, or gallops appreciated. ABDOMEN - Abdominal contour normal without pulsations or visible masses. BS normoactive all four quadrants. No tenderness, palpable masses, hepatosplenomegaly, or ascites noted. EXTREMITIES - No clubbing or peripheral cyanosis. No pretibial edema present. +5/5 strength noted in UE/LE bilaterally. NEUROLOGIC - Cranial nerves II through XII grossly intact. Sensory intact to light touch throughout. PSYCH - A&O, and cooperates fully with examiner. Pt is very pleasant and interacts well with examiner. Course Administered Medications Patiromer (Veltassa) 8.4 gm PO DAILY JAYLEN Stop: 03/28/20 08:59 Last Admin: 02/27/20 00:13 Dose: 8.4 gm Documented by: [id number] Discontinued Medications Albuterol (Ventolin 0.5% 2.5mg/0.5ml) 2.5 mg NEB NOW STA Stop: 02/26/20 23:50 Last Admin: 02/27/20 00:02 Dose: 2.5 mg Documented by: [id number] Dextrose (Dextrose 50%) 50 ml IV NOW ONE Stop: 02/26/20 23:50 Last Admin: 02/27/20 00:00 Dose: 50 ml Documented by: [id number] Sodium Chloride (Nss 1000ml) 1,000 mls @ 999 mls/hr IV .Q1H1M JAYLEN Stop: 02/26/20 22:45 Last Infusion: 02/26/20 23:19 Dose: 0 mls/hr Documented by: [id number] Admin: 02/26/20 22:10 Dose: 999 mls/hr Documented by: [id number] Sodium Chloride (Nss 1000ml) 1,000 mls @ 999 mls/hr IV .Q1H1M JAYLEN Stop: 02/27/20 00:00 Last Infusion: 02/27/20 01:31 Dose: 0 mls/hr Documented by: [id number] Admin: 02/26/20 23:19 Dose: 999 mls/hr Documented by: [id number] Cefepime HCl (Maxipime) 2,000 mg in 20 mls @ 5 mls/min IV NOW STA; Protocol Stop: 02/26/20 23:52 Last Admin: 02/27/20 00:05 Dose: 5 mls/min Documented by: [id number] Insulin Human Regular (Novolin R U-100 Per Unit) 10 units IV NOW STA Stop: 02/26/20 23:52 Last Admin: 02/27/20 00:12 Dose: 10 units Documented by: [id number] Cosigned by: [id number] Critical Care Time Critical Care Time: Yes Total Critical Care Time: 36 I have personally spent 36 minutes of critical care time in the direct management of this patient. This includes bedside care, interpretation of diagnostic studies, and testing, discussion with consultants, patient, and family members, and other required patient management activities. This 36 minutes is in excess of all separately billable procedures. Medical Decision Making Laboratory Data Result diagrams: 02/26/20 22:00 02/27/20 00:40 Lab Results 02/26/20 02/26/20 02/26/20 Range/Units 22:00 22:00 22:00 WBC 16.97 H (4.8-10.8) K/uL RBC 4.67 (4.2-5.4) M/uL Hgb 12.6 (12.0-16.0) g/dL Hct 39.2 (37-47) % MCV 83.9 (80-100) fL MCH 27.0 (25-34) pg MCHC 32.1 (32-36) g/dL RDW Std Deviation 54.0 H (36.4-46.3) fL RDW Coeff of Nabeel 17.7 H (11.5-14.5) % Plt Count 334 (130-400) K/uL MPV 10.1 (7.4-10.4) fL Immature Gran % (Auto) 1.1 % Neut % (Auto) 72.7 % Lymph % (Auto) 17.2 % Kings % (Auto) 5.2 % Eos % (Auto) 3.2 % Baso % (Auto) 0.6 % Immature Gran # (Auto) 0.19 H (0.00-0.02) K/uL Neut # (Auto) 12.33 H (1.4-6.5) K/uL Lymph # (Auto) 2.92 (1.2-3.4) K/uL Kings # (Auto) 0.88 H (0.11-0.59) K/uL Eos # (Auto) 0.55 H (0-0.5) K/uL Baso # (Auto) 0.10 (0-0.2) K/uL PT 11.2 (9.0-12.0) Seconds INR 1.1 (0.9-1.1) APTT 28.8 (21.0-31.0) Seconds PTT Ratio 1.0 Sodium Potassium Chloride Carbon Dioxide Anion Gap BUN Creatinine Est Cr Clr Drug Dosing Est GFR ( Amer) Est GFR (Non-Af Amer) BUN/Creatinine Ratio Glucose Lactate 1.1 (0.4-2.0) mmol/L Calcium Magnesium Total Bilirubin AST ALT Alkaline Phosphatase Troponin I Total Protein Albumin Globulin Albumin/Globulin Ratio TSH 02/26/20 02/26/20 02/27/20 Range/Units 22:00 22:55 00:40 WBC (4.8-10.8) K/uL RBC (4.2-5.4) M/uL Hgb (12.0-16.0) g/dL Hct (37-47) % MCV (80-100) fL MCH (25-34) pg MCHC (32-36) g/dL RDW Std Deviation (36.4-46.3) fL RDW Coeff of Nabeel (11.5-14.5) % Plt Count (130-400) K/uL MPV (7.4-10.4) fL Immature Gran % (Auto) % Neut % (Auto) % Lymph % (Auto) % Kings % (Auto) % Eos % (Auto) % Baso % (Auto) % Immature Gran # (Auto) (0.00-0.02) K/uL Neut # (Auto) (1.4-6.5) K/uL Lymph # (Auto) (1.2-3.4) K/uL Kings # (Auto) (0.11-0.59) K/uL Eos # (Auto) (0-0.5) K/uL Baso # (Auto) (0-0.2) K/uL PT (9.0-12.0) Seconds INR (0.9-1.1) APTT (21.0-31.0) Seconds PTT Ratio Sodium Cancelled 134 L Potassium Cancelled 7.2 H* 5.6 H D Chloride Cancelled 107 Carbon Dioxide Cancelled 14 L Anion Gap Cancelled 12.0 H BUN Cancelled 97 H Creatinine Cancelled 5.08 H* 4.89 H* Est Cr Clr Drug Dosing Cancelled 12.5 13.0 Est GFR ( Amer) Cancelled 10.6 11.1 Est GFR (Non-Af Amer) Cancelled 9.1 9.6 BUN/Creatinine Ratio Cancelled 19.4 Glucose Cancelled 106 H Lactate (0.4-2.0) mmol/L Calcium Cancelled 8.1 L Magnesium Cancelled 1.2 L Total Bilirubin Cancelled 0.2 AST Cancelled 15 ALT Cancelled 24 Alkaline Phosphatase Cancelled 99 Troponin I Cancelled < 0.015 Total Protein Cancelled 7.1 Albumin Cancelled 3.3 L Globulin Cancelled 3.8 Albumin/Globulin Ratio Cancelled 0.9 TSH Cancelled 1.290 Imaging Data Radiologist's Impression: XR chest 1V portable CLINICAL HISTORY: weakness COMPARISON STUDY: 02/18/2020, January 2019 FINDINGS: There is persistent right-sided volume loss with mild tenting of the right hemidiaphragm and hazy right basilar opacity. Postlumpectomy changes are suspected on the right. There is mild prominence of the right hilum possibly vascular. The left lung is clear.[ IMPRESSION: 1. Postsurgical changes of a prior right lobectomy 2. Hazy right basilar opacity, similar to prior studies and likely postsurgical. 3. No evidence of failure. 4. The left lung remains clear ACT 112: Negative or not required by law. Electronically signed by: Ermias Hickman M.D. 02/26/2020 10:[address] ABDOMEN & PELVIS Without Contrast: Impression: Punctate nonobstructing left renal calculi. No ureteral calculi. Right lateral seventh and eighth subacute to chronic rib fractures with adjacent pleural thickening and hazy opacity which appears similar to prior CT abdomen and pelvis 02/18/2020. Cholecystectomy. Total colectomy with left lower quadrant ileostomy. Radiologist: Woo Taveras MD Study ready at 00:45 and initial results transmitted at 00:55 MDM Narrative Patient was seen and evaluated as above in room A2. Review was performed of nursing notes and vital signs. Patient was recently admitted with MISTY and was subsequently discharged a few days ago. I did review pertinent previous visits and patient history. After obtaining a thorough history and physical examination the above work up was performed. She presents with generalized weakness and fatigue. She is mildly hypertensive on exam. No fever. She did have COVID testing in the past and she notes these were negative. There is leukocytosis of 16.97 without anemia. There is significant elevation of potassium and cre atinine. Potassium is 7.2 on arrival with creatinine of 5.08. Lactic acid normal. Blood culture pending. Chest x-ray and CT scan abdomen pelvis were also obtained secondary to presentation which were essentially negative for any acute cause of the presentation here today. Troponin is negative. Patient was then given albuterol nebulizer, empiric cefepime secondary to the presentation here today with elevated white blood cell count, as well as an amp of D50/10 units of IV insulin. I also discussed the case with the on-call party planner, Dr. Salgado. Patiromer 8.4gm were recommended. I then discussed the case with the hospitalist. With the patient's significant MISTY with associated hyperkalemia the patient will require further evaluation and management in the inpatient setting. Please refer to further documentation regarding her stay. While in the department, I personally reevaluated the patient several times and each time the patient was found to be resting comfortably. Patient was amenable to staying, please refer to further documentation regarding her stay. Case was discussed with the attending physician. EKG was obtained secondary to patient complaint of weakness. EKG was reviewed by myself and found to be Normal Sinus Rhythm at a rate of 87 beats per minute and per my interpretation reveals QTc 411, no ST elevation or evidence of NH. And when compared to previous EKG no significant change was found. An order was placed for continuous cardiac monitoring secondary to her presentation and was continued with the significant electrolyte disturbance on labs. The monitor shows a rate of 97 with normal sinus rhythm. I attest that I have personally reviewed the patient medication list. GCS: 15 In the evaluation and treatment of this patient the following differential diagnoses were entertained: MISTY, obstruction, infection, medication induced MISTY, dehydration, electrolyte disturbance, cardiac abnormality, among others. Impression & Plan Acute kidney injury, Acute hyperkalemia, Weakness Discharge Plan Visit Data *Final* Discharge Date/Time: 02/27/20 01:39 Chief Complaint: Urinary Symptoms Stated Complaint: TROUBLE URINATING WEAKNESS ED Provider: Pelon Arias ED Midlevel Provider: Bennie Landry Discharge Problem: Acute kidney injury, Acute hyperkalemia, Weakness Patient Disposition: Admitted As Inpatient Condition: Good Discharge Instructions Interventions: ED Discharge Assessment Last Done: 02/27/20 01:39
[2020-02-26 22:14] LABS: Basophils % (auto) 0.6 %; Eosinophils # (auto) 0.55 K/uL (0-0.5); Eosinophils % (auto) 3.2 %; Hematocrit (blood only) 39.2 % (37-47); Hemoglobin 12.6 g/dL (12.0-16.0); Immature Granulocytes # (auto) 0.19 K/uL (0.00-0.02); Immature Granulocytes % (auto) 1.1 %; Lymphocytes # (auto) 2.92 K/uL (1.2-3.4); Lymphocytes % (auto) 17.2 %; Mean Corpuscular Hgb Conc 32.1 g/dL (32-36); Mean Corpuscular Volume 83.9 fL (80-100); Mean Platelet Volume 10.1 fL (7.4-10.4); Monocytes # (auto) 0.88 K/uL (0.11-0.59); Monocytes % (auto) 5.2 %; Neutrophils # (auto) 12.33 K/uL (1.4-6.5); Neutrophils % (auto) 72.7 %; Platelet Count 334 K/uL (130-400); RDW Coefficient of Variation 17.7 % (11.5-14.5); Red Blood Count 4.67 M/uL (4.2-5.4); White Blood Count 16.97 K/uL (4.8-10.8)
--- NOTE | 2020-02-26 22:18 | XRay Report ---
XR chest 1V portable CLINICAL HISTORY: weakness COMPARISON STUDY: 02/18/2020, January 2019 FINDINGS: There is persistent right-sided volume loss with mild tenting of the right hemidiaphragm an d hazy right basilar opacity. Postlumpectomy changes are suspected on the right. There is mild promin ence of the right hilum possibly vascular. The left lung is clear.[ IMPRESSION: 1. Postsurgical changes of a prior right lobectomy 2. Hazy right basilar opacity, similar to prior studies and likely postsurgical. 3. No evidence of failure. 4. The left lung remains clear ACT 112: Negative or not required by law. Electronically signed by: Ermias Hickman M.D. 02/26/2020 10:16 PM
[2020-02-26 22:25] LABS: INR 1.1 (0.9-1.1); Partial Thromboplastin Time 28.8 Seconds (21.0-31.0); Prothrombin Time 11.2 Seconds (9.0-12.0)
[2020-02-26 23:39] LABS: Alanine Aminotransferase 24 U/L (12-78); Albumin Globulin Ratio 0.9 (0.9-2); Albumin Level 3.3 gm/dl (3.4-5.0); Alkaline Phosphatase 99 U/L (45-117); Aspartate Aminotransferase 15 U/L (15-37); BUN Creatinine Ratio 19.4 (10-20); Bilirubin,Total 0.2 mg/dl (0.2-1); Blood Urea Nitrogen 97 mg/dl (7-18); Calcium 8.1 mg/dl (8.5-10.1); Carbon Dioxide 14 mmol/L (21-32); Chloride 107 mmol/L (98-107); Creatinine Clr Calc Pharmacy 12.5 ml/min; Est GFR (African American) 10.6; Est GFR (Non-African American) 9.1; Globulin 3.8 gm/dl (2.5-4.0); Glucose 106 mg/dl (70-99); Magnesium 1.2 mg/dl (1.8-2.4); Potassium 7.2 mmol/L (3.5-5.1); Sodium 134 mmol/L (136-145); Total Protein 7.1 gm/dl (6.4-8.2); Troponin I < 0.015 ng/ml (0-0.045)
[2020-02-26] MEDS ORDERED: ALBUTEROL 0.5% NEB SOLN 2.5 MG/0.5 ML VIAL NEB STA (23:49)
[2020-02-26] MEDS ORDERED: CEFEPIME 2,000 MG/20 ML VIAL IV STA (23:49)
[2020-02-26] MEDS ORDERED: DEXTROSE 50% 50 ML SYRINGE IV ONE (23:49)
[2020-02-26] MEDS ORDERED: NovoLIN-R INSULIN PER UNIT CHARGE IV STA (23:51)
[2020-02-27 01:25] LABS: Est GFR (African American) 11.1; Est GFR (Non-African American) 9.6; Potassium 5.6 mmol/L (3.5-5.1)
[2020-02-27] MEDS ORDERED: SODIUM CHLORIDE 0.9% 1000ML 1,000 ML IV SCH (01:59)
[2020-02-27] MEDS ORDERED: ALBUTEROL 0.083% NEBU SOLN 3 ML VIAL INH PRN (01:59)
[2020-02-27] MEDS ORDERED: MoRPHine SULFATE 2 MG/ML CARP IV PRN (01:59)
[2020-02-27] MEDS ORDERED: ACETAMINOPHEN 325 MG TAB PO PRN (01:59)
[2020-02-27] MEDS ORDERED: CYCLOBENZAPRINE HCL 10 MG TAB PO PRN (02:03)
[2020-02-27] MEDS ORDERED: OXYCODONE HCL IR 5 MG TAB (IMMEDIATE RELEASE) PO PRN (02:06)
--- NOTE | 2020-02-27 02:09 | History & Physical Report ---
Date of Service February 27, 2020 Assessment & Plan (1) Acute kidney injury: 49 yo F with PMH psoriasis, primary mucinous adenocarcinoma of lung s/p resection, DOMINGO, Crohn's disease, DM2, MISTY, admitted to hospital for acute renal failure, weakness, hyperkalemia. 1. Acute on chronic kidney injury - consider renal doppler US to eval presence of artery stenosis or thrombus causing acute decrease in blood flow and injury - Cr down from 5.08 to 4.89 with fluid management. continue IVF support, monitor UOP. would benefit from dialysis - daily bmp - nephrology consulted, appreciate recommendations 2. HyperKalemia (resolved) - D50 followed by 10u regular insulin to bring potassium down in absence of dialysis. K repeat down to 4.9 from 7 - calcium gluconate IV for cardioprotection - continued veltassa for K lowering 3. Sepsis without source - WBC 16.97, afebrile, mildly hypotensive at 90/59, borderline tachycardic at 95 - UA negative - blood cultures pending - NS 1L fluid bolus x 2 - lactate 1.1 down to 0.9 - no signs of infection on CT abd/pelv - no focal findings on pulm exam - viral panel on 02/18 negative - received cefepime in ED from broad spectrum coverage - cefepime continued in conjunction with Vanc to cover pseudomonas and MRSA given recent hospitalization - mrsa nares pending 4. Hyponatremia - mild at 134, continue monitoring DVT ppx: heparin 5,000 BID FEN/GI: IV NS 120 ml/hr Code status: full code dispo: med surg with tele (2) Acute hyperkalemia: (3) Weakness: (4) DOMINGO (obstructive sleep apnea): (5) Crohns disease: (6) Diabetes mellitus, type 2: Admission and Anticipated Discharge Date Admission Date: February 27, 2020 History of Present Illness 49 yo F with PMH psoriasis, primary mucinous adenocarcinoma of lung s/p resection, DOMINGO, Crohn's disease, DM2, MISTY recently discharged from [facility] on 02/20 presenting to the ED today with complaints of worsening fatigue, generalized weakness, and anuria. She attests to baseline nausea, but denies any episodes of emesis. SHe has been having bi watery diarrhea for the past few days, approximately 7 episodes a day. Denies any hematemesis, bright red blood per rectum, hematochezia. ED course: BMP revealed Cr of 5.08 and K of 7.2. She received D50 and IV regular insulin 10U, Veltassa after discussing case with nephrology. IV fluids initiated. CT abd/pelvis revealed punctate nonobstructing L renal calculi, no ureteral calculi. Right lateral ribs 04/20 showed subacute chronic rib fractures with adjacent pleural thickening and hazy opacities similar to last CT on 02/17. Primary Care Provider: Jose Raul Allen Allergies Allergy/AdvReac Type Severity Reaction Status Date / Time No Known Allergies Allergy Verified 02/26/20 23:08 Home Medications Home Medications Medication Instructions Recorded Confirmed Type cholecalciferol (vitamin D3) 25 6,000 units PO QAM cap 07/15/18 02/26/20 History mcg (1,000 unit) capsule donepezil 10 mg tablet 10 mg PO QAM 07/15/18 02/26/20 History montelukast 10 mg tablet 10 mg PO QAM 07/15/18 02/26/20 History albuterol sulfate [Ventolin HFA] 1 - 2 puff INHALATION Q6H PRN 10/20/18 02/26/20 History atorvastatin 40 mg tablet 40 mg PO QAM 05/26/19 02/26/20 History ferrous sulfate 325 mg (65 mg 325 mg PO QDL tab 05/26/19 02/26/20 History iron) tablet memantine 10 mg tablet 10 mg PO BID tab 08/03/19 02/26/20 History Stelara 90 mg SUBCUT .[id number] 01/07/20 02/26/20 History cyanocobalamin (vitamin B-12) 1,000 mcg IM MONTHLY 01/07/20 02/26/20 History pantoprazole [Protonix] 40 mg PO QAM 01/07/20 02/26/20 History venlafaxine [Effexor XR] 150 mg PO QAM 01/07/20 02/26/20 History albuterol sulfate 2.5 mg INHALATION Q4 PRN 01/11/20 02/26/20 History fluoxetine 20 mg capsule 60 mg PO QAM 01/11/20 02/26/20 History lidocaine 5 % topical patch 1 patch TOP DAILY PRN 01/11/20 02/26/20 History metoprolol succinate [Toprol XL] 25 mg PO QAM 02/18/20 02/26/20 History oxycodone [Roxicodone] 5 mg PO Q6H PRN 02/18/20 02/26/20 History amoxicillin-pot clavulanate 1 tab PO BID #10 tab 02/21/20 02/26/20 Rx [Augmentin] Trelegy Ellipta 1 puffs INH QAM 02/26/20 02/26/20 History cyclobenzaprine 10 mg PO Q8H PRN 02/26/20 02/26/20 History nortriptyline [Pamelor] 25 mg PO BID 02/26/20 02/26/20 History Past Med/Surg History Medical History Acid reflux Anxiety (Chronic) Asthma COPD (chronic obstructive pulmonary disease) Crohns disease (Chronic) Depressive disorder (Chronic) Diabetes mellitus, type 2 Former smoker (Resolved) History of pancreatitis Left lumbar radiculitis (Chronic) Lumbago (Chronic) Lung cancer Lung nodule Metabolic acidosis Myofascial pain (Chronic) On home oxygen therapy 2L O2 CONT. Osteoarthritis Psoriasis (Chronic) Sacroiliitis (Chronic) Short-term memory loss Shortness of breath PROBLEM OVER LAST THREE MONTHS/NEEDS TO REST AFTER 5 STEPS Surgical History History of adenoidectomy History of bilateral tubal ligation History of bowel resection X 2 (ILEOSTOMY) History of bronchoscopy 10/31/2018 [facility]. MAC 3, Grade 1 view. 8.5 ETT. no issues. 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 Other Information That Helps Us Care for You: No Feels Safe at Home: Yes Safety Concerns: Feels Safe At This Time Smoking Status: Former smoker Tobacco Type: cigarettes ; Cigarettes Per Day: 30 ; Second Hand Exposure: No ; Hx Alcohol Use: No Hx Substance Use: No Review of Systems Constitutional: + chills, + malaise and + weakness; no fever and no sweats Respiratory: + dyspnea on exertion; no cough, no dyspnea and no hemoptysis Cardiovascular: + dyspnea on exertion and + palpitations; no chest pain and no edema Gastrointestinal: + abdominal pain, + nausea, + cramping and + diarrhea/loose stools; no vomiting and no blood in stools Genitourinary: no dysuria and no hematuria Neurologic: no loss of sensation, no tingling and no numbness Physical Exam Constitutional: well developed, + ill appearing and + obese; no acute distress Respiratory: normal respiratory effort, lungs clear to auscultation no labored breathing, no retractions and no cough Auscultation: no crackles, no rales, no rhonchi and no wheezes Cardiovascular: RRR, no murmur, no edema Heart Sounds: no gallop, no murmur and no cardiac rub Extremities: normal capillary refill; no calf tenderness and no edema Gastrointestinal (Abdomen): Inspection/Auscultation: abdomen normal to inspection and normal bowel sounds; abdomen not distended Percussion/Palpation: abdomen soft; abdomen nontender, no guarding and abdomen not rigid Results & Data Results & Data ([facility]) Vital Signs (Past 12 Hours) Vital Signs Temp Pulse Pulse Resp BP BP Pulse Ox 02/27/20 01:30 94 H 18 95/60 L 98 02/27/20 01:15 95 H 24 88/61 L 99 02/27/20 01:00 94 H 19 94/57 L 100 02/27/20 00:45 94 H 20 91/57 L 100 02/27/20 00:38 98 H 25 H 99 02/27/20 00:04 86 18 99 02/27/20 00:00 85 22 86/52 L 99 02/26/20 23:46 84 16 80/51 L 99 02/26/20 22:31 90 19 98 02/26/20 22:30 87 19 87/50 L 98 02/26/20 22:28 85 16 82/59 L 98 02/26/20 21:19 36.5 C 97 H 19 92/60 L 99 Laboratory Results WBC 16.97 K/uL (4.8-10.8) H 02/26/20 22:00 RBC 4.67 M/uL (4.2-5.4) 02/26/20 22:00 Hgb 12.6 g/dL (12.0-16.0) 02/26/20 22:00 Hct 39.2 % (37-47) 02/26/20 22:00 MCV 83.9 fL (80-100) 02/26/20 22:00 MCH 27.0 pg (25-34) 02/26/20 22:00 MCHC 32.1 g/dL (32-36) 02/26/20 22:00 RDW Std Deviation 54.0 fL (36.4-46.3) H 02/26/20 22:00 RDW Coeff of Nabeel 17.7 % (11.5-14.5) H 02/26/20 22:00 Plt Count 334 K/uL (130-400) 02/26/20 22:00 MPV 10.1 fL (7.4-10.4) 02/26/20 22:00 Immature Gran % (Auto) 1.1 % 02/26/20 22:00 Neut % (Auto) 72.7 % 02/26/20 22:00 Lymph % (Auto) 17.2 % 02/26/20 22:00 [place] % (Auto) 5.2 % 02/26/20 22:00 Eos % (Auto) 3.2 % 02/26/20 22:00 Baso % (Auto) 0.6 % 02/26/20 22:00 Immature Gran # (Auto) 0.19 K/uL (0.00-0.02) H 02/26/20 22:00 Neut # (Auto) 12.33 K/uL (1.4-6.5) H 02/26/20 22:00 Lymph # (Auto) 2.92 K/uL (1.2-3.4) 02/26/20 22:00 [place] # (Auto) 0.88 K/uL (0.11-0.59) H 02/26/20 22:00 Eos # (Auto) 0.55 K/uL (0-0.5) H 02/26/20 22:00 Baso # (Auto) 0.10 K/uL (0-0.2) 02/26/20 22:00 PT 11.2 Seconds (9.0-12.0) 02/26/20 22:00 INR 1.1 (0.9-1.1) 02/26/20 22:00 APTT 28.8 Seconds (21.0-31.0) 02/26/20 22:00 PTT Ratio 1.0 02/26/20 22:00 Sodium 134 mmol/L (136-145) L 02/26/20 22:55 Potassium 5.6 mmol/L (3.5-5.1) H D 02/27/20 00:40 Chloride 107 mmol/L (98-107) 02/26/20 22:55 Carbon Dioxide 14 mmol/L (21-32) L 02/26/20 22:55 Anion Gap 12.0 (3-11) H 02/26/20 22:55 BUN 97 mg/dl (7-18) H 02/26/20 22:55 Creatinine 4.89 mg/dl (0.6-1.2) H* 02/27/20 00:40 Est Cr Clr Drug Dosing 13.0 ml/min 02/27/20 00:40 Est GFR ( Amer) 11.1 02/27/20 00:40 Est GFR (Non-Af Amer) 9.6 02/27/20 00:40 BUN/Creatinine Ratio 19.4 (10-20) 02/26/20 22:55 Glucose 106 mg/dl (70-99) H 02/26/20 22:55 Lactate 0.9 mmol/L (0.4-2.0) 02/27/20 01:32 Calcium 8.1 mg/dl (8.5-10.1) L 02/26/20 22:55 Magnesium 1.2 mg/dl (1.8-2.4) L 02/26/20 22:55 Total Bilirubin 0.2 mg/dl (0.2-1) 05/15/20 22:55 AST 15 U/L (15-37) 02/26/20 22:55 ALT 24 U/L (12-78) 02/26/20 22:55 Alkaline Phosphatase 99 U/L (45-117) 02/26/20 22:55 Troponin I < 0.015 ng/ml (0-0.045) 02/26/20 22:55 Total Protein 7.1 gm/dl (6.4-8.2) 02/26/20 22: Albumin 3.3 gm/dl (3.4-5.0) L 02/26/20 22: Globulin 3.8 gm/dl (2.5-4.0) 02/26/20 22: Albumin/Globulin Ratio 0.9 (0.9-2) 02/26/20 22: TSH 1.290 uIu/ml (0.300-4.500) 02/26/20 22:55 Urine Color Yellow 02/26/20 02:20 Urine Appearance Clear (Clear) 02/26/20 02:20 Urine pH 5.0 (4.5-7.5) 02/26/20 02:20 Ur Specific [place] 1.019 (1.000-1.030) 02/26/20 02:20 Urine Protein 1+ (Negative) H 02/26/20 02:20 Urine Glucose (UA) Negative (Negative) 02/26/20 02:20 Urine Ketones Trace (Negative) H 02/26/20 02:20 Urine Blood Negative (Negative) 02/26/20 02:20 Urine Nitrite Negative (Negative) 02/26/20 02:20 Urine Bilirubin Negative (Negative) 02/26/20 02:20 Urine Urobilinogen Negative (Negative) 02/26/20 02:20 Ur Leukocyte Esterase Negative (Negative) 02/26/20 02:20 Supervising Physician Co-Signing Physician Notes Attending addendum: I have physically seen this patient, have supervised the medical residents activities, and agree with the H&P unless as otherwise noted. Assessment and Plan: Hyperkalemia/acute kidney injury on chronic kidney disease/presumptive urinary source of infection- Potassium 7 upon admission, with creatinine 5. Nephrology aware and wants patient admitted to medical service. Continue to give D50 with regular insulin 10 IV serially. Would avoid agents that promote defecation as a means of lowering potassium and potentially aggravating her dehydrated state, as she already has loose stools now. Cefepime 1 g IV every 8 hours. Follow urine culture and sensitivities Follow blood culture and sensitivities. Remainder of orders and notations as noted. 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
[2020-02-27] MEDS: ONDANSETRON INJ 2 MG/ML 2 ML VIAL IV PRN ×2 (02:20→16:41)
[2020-02-27] MEDS: MAGNESIUM SULFATE / D5W 1 GM/100 ML BAG IV SCH ×4 (02:21→11:19)
[2020-02-27] MEDS ORDERED: DEXTROSE 50% 50 ML SYRINGE IV STA (02:58)
[2020-02-27 03:14] LABS: Appearance Urine Clear (Clear); Bacteria Urine Automated Negative (Negative); Bilirubin Urine Negative (Negative); Blood Urine Negative (Negative); Color Urine Yellow; Epithelial Cell Urine Auto >30 /lpf (0-5); Glucose Urine UA Negative (Negative); Ketones Urine Trace (Negative); Leukocyte Esterase Urine Negative (Negative); Nitrite Urine Negative (Negative); Protein Urine 1+ (Negative); Specific Gravity Urine 1.019 (1.000-1.030); Urobilinogen Urine Negative (Negative)
[2020-02-27] MEDS ORDERED: INSULIN HUMAN REGULAR PER UNIT 10 UNITS in SYRINGE 9.9 ML IV ONE (03:30)
[2020-02-27] MEDS ORDERED: CALCIUM GLUCONATE 10% 1,000 MG in SODIUM CHLORIDE 0.9% 50 ML IV STA (03:57)
[2020-02-27] MEDS ORDERED: VANCOMYCIN CONSULT ACTIVE PRN (05:13)
[2020-02-27] MEDS ORDERED: SODIUM CHLORIDE 0.9% 1,000 ML IV SCH (05:30)
[2020-02-27] MEDS ORDERED: VANCOMYCIN HCL 1,250 MG in SODIUM CHLORIDE 0.9% 250 ML IV SCH (06:00)
[2020-02-27] MEDS ORDERED: CEFEPIME 1,000 MG in SYRINGE 0 ML IV SCH (06:00)
[2020-02-27] MEDS ORDERED: CEFEPIME 2,000 MG in SYRINGE 7.5 ML IV SCH (06:00)
--- NOTE | 2020-02-27 06:50 | CT Scan Report ---
CT abd pelvis wo con CLINICAL HISTORY: 49 years-old Female presenting with R flank pain, ARF. TECHNIQUE: Multidetector CT of the abdomen and pelvis was performed without the use of intravenous co ntrast. IV contrast: None. One or more dose lowering techniques were used consistent with the princip les of ALA (as low as reasonably achievable), including automatic exposure control, mA or kV adjust ment to individual patient size, and/or use of iterative reconstruction. COMPARISON: 02/18/2020. CT DOSE (mGy.cm): The estimated cumulative dose is 733.87 mGy.cm. 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 Lung bases: Normal heart size. No pericardial or pleural effusion. Patchy nodular groundglass infiltr ates and a peripheral distribution in the lateral basal and posterior basal right lower lobe. These m ay be present to a minimal degree on the left. The appearance is similar to prior exam. Liver: Normal morphology. Density suggests mild hepatic steatosis. Biliary: No gross biliary ductal dilatation allowing for noncontrast technique. Gallbladder surgicall y absent. Pancreas: Normal noncontrast appearance. Spleen: Normal noncontrast appearance. Adrenal glands: Normal noncontrast appearance. Kidneys and ureters: Punctate nonobstructing calculus at the upper pole the left kidney with a slight ly larger 3 mm calculus at the lower pole the left kidney. Vague hyperdensity along the papilla at th e lower pole the right kidney may suggest a Wojciech's plaques. No hydronephrosis. Normal noncontrast of the renal parenchyma. Ureters nondistended. Bladder: Incompletely evaluated secondary to underdistention. No bladder calculi. Pelvic organs: Normal noncontrast appearance. Bowel: Fitzgerald's pouch noted at the upper rectum. Ileostomy in the left midabdomen. Bowel suboptimall y evaluated without intravenous or oral contrast. Prior subtotal colectomy suspected. No bowel obstru ction. Peritoneal cavity: No free fluid or intraperitoneal gas. Lymph nodes: No gross lymphadenopathy allowing for noncontrast technique. Vasculature: Atherosclerosis of the normal caliber abdominal aorta. Abdominal wall: Left mid abdominal ileostomy with fat-containing parastomal hernia unchanged in appea poly from prior. Nodular infiltration in the subcutaneous tissue of the mid abdomen likely from medi cation administration. Musculoskeletal: Degenerative changes of the spine. Multiple deformities of the posterolateral right ribs possibly posttraumatic and unchanged from prior. IMPRESSION: 1. Allowing for noncontrast technique, no acute intra-abdominal pathology. 2. Nephrolithiasis predominant on the left with right Wojciech's plaques. No hydronephrosis or eviden ce of a recently passed calculus. 3. Persistent patchy nodular groundglass infiltrates predominantly in the right lower lobe concernin g for infectious bronchiolitis. 4. Additional findings as above unchanged from prior. ACT 112: Negative or not required by law. Electronically signed by: Graham Burris M.D. 02/27/2020 6:48 AM
[2020-02-27 07:01] LABS: Estimated Average Glucose 186 mg/dl; Hemoglobin A1C 8.1 % (4.5-5.6)
[2020-02-27] MEDS ORDERED: INSULIN HUMAN REGULAR SC SCH (07:30)
[2020-02-27] MEDS: HEPARIN SOD 5,000 UNIT/0.5 ML VIAL SQ SCH ×2 (08:28→20:25)
[2020-02-27] MEDS: NORTRIPTYLINE HCL 25 MG CAP PO SCH ×2 (08:28→20:26)
[2020-02-27] MEDS: PANTOprazole 40 MG TAB PO SCH (08:29)
[2020-02-27] MEDS: MEMANTINE HCL 10 MG TAB PO SCH ×2 (08:29→20:26)
[2020-02-27] MEDS: METOPROLOL SUCC 25MG EXT REL TAB PO SCH (08:29)
[2020-02-27] MEDS: VENLAFAXINE HCL XR 150 MG CAPXR PO SCH (08:29)
[2020-02-27] MEDS: FLUOXETINE HCL 20 MG CAP PO SCH (08:29)
[2020-02-27] MEDS: DONEPEZIL HCL 10 MG TAB PO SCH (08:29)
[2020-02-27] MEDS: CHOLECALCIFEROL 1,000 UNITS 25 MCG TAB PO SCH (08:29)
[2020-02-27] MEDS: MONTELUKAST SODIUM 10 MG TABLET PO SCH (08:29)
[2020-02-27] MEDS: FLUTICASONE FUROATE 100MCG 14 PUFFS/INHALER INH SCH (08:30)
[2020-02-27] MEDS: ATORVASTATIN 40 MG TAB PO SCH (08:30)
[2020-02-27] MEDS: UMECLIDINIUM/VILANTEROL 62.5/25MCG 7 PUFFS/INHALER INH SCH (08:30)
[2020-02-27] MEDS ORDERED: SODIUM BICARBONATE 650 MG TAB PO STA (08:31)
[2020-02-27] MEDS ORDERED: PATIROMER CALCIUM SORBITEX 8.4 GM PACK PO SCH (09:00)
[2020-02-27] MEDS ORDERED: CYANOCOBALAMIN 1000 MCG/ML VIAL IM SCH (09:00)
[2020-02-27] MEDS: SODIUM BICARBONATE 8.4% 75 MEQ in SODIUM CHLORIDE 0.45 % 1,000 ML IV SCH ×2 (09:18→20:25)
--- NOTE | 2020-02-27 10:48 | Electrocardiogram Report ---
Test Reason : Blood Pressure : / mmHG Vent. Rate : 087 BPM Atrial Rate : 087 BPM P-R Int : 138 ms QRS Dur : 080 ms QT Int : 342 ms P-R-T Axes : 058 023 057 degrees QTc Int : 411 ms Normal sinus rhythm Normal ECG When compared with ECG of 18-FEB-2020 17:24, No significant change was found Confirmed by Jordan Melgar ([id number]) on 02/27/2020 10:47:59 AM Referred By: REFERRED SELF Confirmed By:Dileep Melgar
--- NOTE | 2020-02-27 11:21 | Pharmacy Report ---
Pharmacy Abx Initial Consult - Date of Service February 27, 2020 - Pharmacy Dosing Scope Date of Consult: 02/27/20 Consultation requested by: Dr. Christianson Pharmacy is consulted to initiate Vancomycin IV dosing therapy, order appropriate labs and adjust drug dose/frequency. - Subjective The patient is a 49 year old F admitted on 02/27/20 01:14. - Objective Height: 5 ft 1 in Weight: 80.3 kg Vital Signs (Past 12hrs): Vital Signs Temp Pulse Pulse Pulse Resp BP BP 02/27/20 10:57 36.8 C 90 19 91/57 L 02/27/20 07:47 36.7 C 97 H 17 100/67 02/27/20 03:17 36.5 C 95 H 20 90/59 L 02/27/20 01:59 36.6 C 92 H 16 108/74 02/27/20 01:52 36.6 C 92 H 18 108/74 02/27/20 01:30 94 H 18 95/60 L 02/27/20 01:15 95 H 24 88/61 L 02/27/20 01:00 94 H 19 94/57 L 02/27/20 00:45 94 H 20 91/57 L 02/27/20 00:38 98 H 25 H 02/27/20 00:04 86 18 02/27/20 00:00 85 22 86/52 L 02/26/20 23:46 84 16 80/51 L Pulse Ox 02/27/20 10:57 99 02/27/20 07:47 99 02/27/20 03:17 98 02/27/20 01:59 100 02/27/20 01:52 100 02/27/20 01:30 98 02/27/20 01:15 99 02/27/20 01:00 100 02/27/20 00:45 100 02/27/20 00:38 99 02/27/20 00:04 99 02/27/20 00:00 99 02/26/20 23:46 99 Lab Results (24hrs): Laboratory Tests (24 Hours) 02/27/20 02/26/20 02/26/20 00:40 22:55 22:00 WBC Neut # (Auto) Creatinine 4.89 H* 5.08 H* Cancelled Est Cr Clr Drug Dosing 13.0 12.5 Cancelled 02/26/20 22:00 WBC 16.97 H Neut # (Auto) 12.33 H Creatinine Est Cr Clr Drug Dosing Micro Results: 02/26/20 22:14 Aerobic Blood Culture - Pending Blood Anaerobic Blood Culture - Pending 02/26/20 22:00 Aerobic Blood Culture - Pending Blood Anaerobic Blood Culture - Pending - Risk Factors for Resistance * Hospitalization for 48 hours or more within the past 90 days: multiple admissions (02/17-02/20; 01/06-01/14) * Immunocompromised (chronic steroid therapy, chemotherapy, immunomodulators): hx primary mucinous adenocarcinoma of lung s/p resection * Antimicrobial use within the last 90 days include specific drugs, if known: Zosyn, cefdinir, doxycycline, Augmentin, azithromycin - Assessment & Plan Assessment 49 year old F admitted with sepsis w/o clear source. Multiple admissions past 2 months for pneumonia noted. MRSA nasal swab was negative. * Given MISTY and unstable renal function, Vancomycin needs to be used prn random levels Plan Vancomycin IV * Loading dose: 1250 mg (~15 mg/kg) * Goal trough level for sepsis : 15 to 20 mcg/mL * Random level ordered for 02/28/20 with AM labs to determine when to give next dose Pharmacy will continue to follow and will adjust dose/frequency as necessary. Thank you.
--- NOTE | 2020-02-27 11:51 | Nephrology Consultation ---
Date of Consultation February 27, 2020 Assessment & Plan (1) Acute kidney injury: -- Baseline creatinine 1.2-1.5 mg/dL -- Creatinine was 2.5 mg/dL on 02/20 following recent hospitalization; MISTY attributed to ATN and dehydration at that time -- CT negative for obstruction -- UA demonstrates +1 protein (chronic), few RBC's, no WBC's -- Creatinine slightly improved -- Non-oliguric -- BP remains low -- Clinical presentation consistent with ATN/dehydration superimposed on recent MISTY -- Continue to document I/O's -- IV saline switched to 1/2NS+75 mEq NaHCO3 this AM. Continue IVF to maintain a positive fluid balance. -- Medications area appropriately dosed for kidney dysfunction: metformin held. Vanco dosing per pharmacy. -- Repeat metabolic profile + CK ordered for this afternoon. (2) Acute hyperkalemia: -- Hyperkalemia improved with HCO3 replacement and patiromer. Maintain low K+ diet. -- IV MgSO4 2 gm ordered for hypomagnesemia. (3) Weakness: -- Improving with hydration. (4) DOMINGO (obstructive sleep apnea): (5) Crohns disease: -- Consider GI consultation for high-ostomy output, if there is now improvement. -- Stelara provided for psoriasis may play a role in management of IBD. (6) Diabetes mellitus, type 2: History of Present Illness Reason for Consultation: MISTY/CKD Requesting Physician: Jovita Finnegan DO Attending Physician: Jovita Finnegan DO History of Present Illness Ms. Isidro is a 49 year old female who presented to the ER at [facility] yesterday with persistent watery ostomy output, anorexia, weakness, light headedness, and generalized malaise. I was contacted by the ER physician overnight for assistance in management of hyperkalemia. Urine output has been adequate in response to IVF. She received patiromer. Serum potassium has improved. Creatinine is trending down slightly. Nephrology consultation was requested to assist in the management of MISTY/CKD. I know Yu from the outpatient nephrology clinic where she is followed for a history of MISTY and CKD. She was last seen in the clinic in September. At that time, creatinine was stable at baseline 1.3 mg/dL. Ms. Isidro has stage III CKD with a baseline creatinine of 1.2 - 1.5 mg/dL. Her renal impairment has been attributed to microvascular disease, possible diabetic nephropathy, and previous episodes of MISTY/ATN related to pneumonia/dehydration. 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 Yu was recently admitted to [facility] from 02/17-02/20. She presented with dyspnea, cough, diffuse weakness, nausea, vomiting, poor PO intake, as well as increased liquid output from her ileostomy. On 02/15, she had been evaluated in the ED at [facility] and had a CT scan of her chest as well as COVID-19 testing. COVID testing was negative. BioFire was negative. During her admission, C diff testing was negative. Evaluation revealed small peripheral ground glass densities in the right base. It is noted that she had been recently treated for CAP with Cefdinir and Doxycycline. MRSA negative. During her hospitalization at [facility], she received Zosyn and was converted to Augmentin will complete 1 week course at discharge. CT scan chest from [facility] reported a few ground glass opacities in the right suprahilar region adjacent to the surgical bed and in the periphery of the right lower lobe plus posteriorly in the left lower lobe without associated effusion or endobronchial lesions. There is a stable postoperative lobulated retrosternal mass which is unchanged in size at 2.7 x 1.7 cm. Nephrology consultation was provided during her admission. Creatinine improved from 7.0 mg/dL on admission to 2.5 mg/dL at discharge. Ms. Isidro resides in [place], [place] with her and 2 sons. Yu reports liquid ostomy output which persisted after she was discharged home earlier this month. She describes large volume output. She has experienced only mild abdominal discomfort. She is due Stelara which has been delayed. She denies fevers or chills but describes some recent sweats. She denies any melena or hematochezia. Urine output was reduced. Nausea persists. Appetite remains poor. Allergies Allergy/AdvReac Type Severity Reaction Status Date / Time No Known Allergies Allergy Verified 02/26/20 23:08 Home Medications Home Medications Medication Instructions Recorded Confirmed Type cholecalciferol (vitamin D3) 25 6,000 units PO QAM cap 07/15/18 02/26/20 History mcg (1,000 unit) capsule donepezil 10 mg tablet 10 mg PO QAM 07/15/18 02/26/20 History montelukast 10 mg tablet 10 mg PO QAM 07/15/18 02/26/20 History albuterol sulfate [Ventolin HFA] 1 - 2 puff INHALATION Q6H PRN 10/20/18 02/26/20 History atorvastatin 40 mg tablet 40 mg PO QAM 05/26/19 02/26/20 History ferrous sulfate 325 mg (65 mg 325 mg PO QDL tab 05/26/19 02/26/20 History iron) tablet memantine 10 mg tablet 10 mg PO BID tab 08/03/19 02/26/20 History Stelara 90 mg SUBCUT .[id number] 01/07/20 02/26/20 History cyanocobalamin (vitamin B-12) 1,000 mcg IM MONTHLY 01/07/20 02/26/20 History pantoprazole [Protonix] 40 mg PO QAM 01/07/20 02/26/20 History venlafaxine [Effexor XR] 150 mg PO QAM 01/07/20 02/26/20 History albuterol sulfate 2.5 mg INHALATION Q4 PRN 01/11/20 02/26/20 History fluoxetine 20 mg capsule 60 mg PO QAM 01/11/20 02/26/20 History lidocaine 5 % topical patch 1 patch TOP DAILY PRN 01/11/20 02/26/20 History metoprolol succinate [Toprol XL] 25 mg PO QAM 02/18/20 02/26/20 History oxycodone [Roxicodone] 5 mg PO Q6H PRN 02/18/20 02/26/20 History amoxicillin-pot clavulanate 1 tab PO BID #10 tab 02/21/20 02/26/20 Rx [Augmentin] Trelegy Ellipta 1 puffs INH QAM 02/26/20 02/26/20 History cyclobenzaprine 10 mg PO Q8H PRN 02/26/20 02/26/20 History nortriptyline [Pamelor] 25 mg PO BID 02/26/20 02/26/20 History Patient History Medical History Acid reflux Anxiety (Chronic) Asthma COPD (chronic obstructive pulmonary disease) Crohns disease (Chronic) Depressive disorder (Chronic) Diabetes mellitus, type 2 Former smoker (Resolved) History of pancreatitis Left lumbar radiculitis (Chronic) Lumbago (Chronic) Lung cancer Lung nodule Metabolic acidosis Myofascial pain (Chronic) On home oxygen therapy 2L O2 CONT. Osteoarthritis Psoriasis (Chronic) Sacroiliitis (Chronic) Short-term memory loss Shortness of breath PROBLEM OVER LAST THREE MONTHS/NEEDS TO REST AFTER 5 STEPS Surgical History History of adenoidectomy History of bilateral tubal ligation History of bowel resection X 2 (ILEOSTOMY) History of bronchoscopy 10/31/2018 [facility]. MAC 3, Grade 1 view. 8.5 ETT. no issues. History of carpal tunnel release of both wrists History of cholecystectomy History of colonoscopy History of herniorrhaphy History of ileostomy (Resolved) X2 History of lobectomy of lung LUNG MASS REMOVED History of lung surgery wedge of RUL 2/ History of myringotomy History of thyroidectomy, subtotal History of tonsillectomy History of tooth extraction S/P thyroidectomy (Deleted 01/07/14) Family History Aunt Family history of breast cancer Mother Family history of diabetes mellitus Social History Preferred Language: [place] Communication Ability: Effective Visual Impairment: No Limitations Fuse Cup Expander Required: No Beliefs That Will Affect Care: None marital status: Single Current Living Situation: Family Current Living Situation Comment: son, daughter, and SO. Other Information That Helps Us Care for You: No Feels Safe at Home: Yes Safety Concerns: Feels Safe At This Time Smoking Status: Former smoker Tobacco Type: cigarettes ; Cigarettes Per Day: 30 ; Second Hand Exposure: No ; Hx Alcohol Use: No Hx Substance Use: No Review of Systems Review of Systems: All systems reviewed & are unremarkable except as noted in HPI & below Physical Exam Constitutional: + obese; no acute distress Eyes: + anicteric sclerae ENMT: Mouth: no oral mucosal abnormality and oral mucous membranes not dry Neck: normal visual inspection and trachea midline Respiratory: normal respiratory effort Auscultation: lungs clear to auscultation bilaterally Cardiovascular: Rate/Rhythm: regular rate Heart Sounds: normal S1 and normal S2 Extremities: no edema Gastrointestinal (Abdomen): Inspection/Auscultation: + abdomen distended Percussion/Palpation: + abdomen tender (mild left sided) and abdomen soft; no guarding and abdomen not rigid ileostomy Musculoskeletal: Extremities: no cyanosis and no clubbing Skin: normal turgor; no rashes Neurologic: Motor/Sensory: no tremor and no asterixis Psychiatric: Orientation: alert and oriented x 3 Results & Data Vital Signs (Past 12 Hours) Vital Signs Temp Pulse Pulse Pulse Resp BP BP 02/27/20 10:57 36.8 C 90 19 91/57 L 02/27/20 07:47 36.7 C 97 H 17 100/67 02/27/20 03:17 36.5 C 95 H 20 90/59 L 02/27/20 01:59 36.6 C 92 H 16 108/74 02/27/20 01:52 36.6 C 92 H 18 108/74 02/27/20 01:30 94 H 18 95/60 L 02/27/20 01:15 95 H 24 88/61 L 02/27/20 01:00 94 H 19 94/57 L 02/27/20 00:45 94 H 20 91/57 L 02/27/20 00:38 98 H 25 H 02/27/20 00:04 86 18 02/27/20 00:00 85 22 86/52 L Pulse Ox 02/27/20 10:57 99 02/27/20 07:47 99 02/27/20 03:17 98 02/27/20 01:59 100 02/27/20 01:52 100 02/27/20 01:30 98 02/27/20 01:15 99 02/27/20 01:00 100 02/27/20 00:45 100 02/27/20 00:38 99 02/27/20 00:04 99 02/27/20 00:00 99 Laboratory Results Laboratory Results - last 24 hr 02/26/20 02/26/20 02/26/20 02:20 22:00 22:00 WBC 16.97 H RBC 4.67 Hgb 12.6 Hct 39.2 MCV 83.9 MCH 27.0 MCHC 32.1 RDW Std Deviation 54.0 H RDW Coeff of Nabeel 17.7 H Plt Count 334 MPV 10.1 Immature Gran % (Auto) 1.1 Neut % (Auto) 72.7 Lymph % (Auto) 17.2 [place] % (Auto) 5.2 Eos % (Auto) 3.2 Baso % (Auto) 0.6 Immature Gran # (Auto) 0.19 H Neut # (Auto) 12.33 H Lymph # (Auto) 2.92 [place] # (Auto) 0.88 H Eos # (Auto) 0.55 H Baso # (Auto) 0.10 PT INR APTT PTT Ratio Sodium Potassium Chloride Carbon Dioxide Anion Gap BUN Creatinine Est Cr Clr Drug Dosing Est GFR ( Amer) Est GFR (Non-Af Amer) BUN/Creatinine Ratio Glucose Estimat Average Glucose Hemoglobin A1c Lactate 1.1 Calcium Magnesium Total Bilirubin AST ALT Alkaline Phosphatase Troponin I Total Protein Albumin Globulin Albumin/Globulin Ratio TSH Urine Color Yellow Urine Appearance Clear Urine pH 5.0 Ur Specific [place] 1.019 Urine Protein 1+ H Urine Glucose (UA) Negative Urine Ketones Trace H Urine Blood Negative Urine Nitrite Negative Urine Bilirubin Negative Urine Urobilinogen Negative Ur Leukocyte Esterase Negative Urine WBC (Auto) 1-5 Urine RBC (Auto) 5-10 H U Hyaline Cast (Auto) 1-5 U Epithel Cells (Auto) >30 H Urine Bacteria (Auto) Negative Nasal Screen MRSA (PCR) 02/26/20 02/26/20 02/26/20 22:00 22:00 22:55 WBC RBC Hgb Hct MCV MCH MCHC RDW Std Deviation RDW Coeff of Nabeel Plt Count MPV Immature Gran % (Auto) Neut % (Auto) Lymph % (Auto) [place] % (Auto) Eos % (Auto) Baso % (Auto) Immature Gran # (Auto) Neut # (Auto) Lymph # (Auto) [place] # (Auto) Eos # (Auto) Baso # (Auto) PT 11.2 INR 1.1 APTT 28.8 PTT Ratio 1.0 Sodium Cancelled 134 L Potassium Cancelled 7.2 H* Chloride Cancelled 107 Carbon Dioxide Cancelled 14 L Anion Gap Cancelled 12.0 H BUN Cancelled 97 H Creatinine Cancelled 5.08 H* Est Cr Clr Drug Dosing Cancelled 12.5 Est GFR ( Amer) Cancelled 10.6 Est GFR (Non-Af Amer) Cancelled 9.1 BUN/Creatinine Ratio Cancelled 19.4 Glucose Cancelled 106 H Estimat Average Glucose Hemoglobin A1c Lactate Calcium Cancelled 8.1 L Magnesium Cancelled 1.2 L Total Bilirubin Cancelled 0.2 AST Cancelled 15 ALT Cancelled 24 Alkaline Phosphatase Cancelled 99 Troponin I Cancelled < 0.015 Total Protein Cancelled 7.1 Albumin Cancelled 3.3 L Globulin Cancelled 3.8 Albumin/Globulin Ratio Cancelled 0.9 TSH Cancelled 1.290 Urine Color Urine Appearance Urine pH Ur Specific [place] Urine Protein Urine Glucose (UA) Urine Ketones Urine Blood Urine Nitrite Urine Bilirubin Urine Urobilinogen Ur Leukocyte Esterase Urine WBC (Auto) Urine RBC (Auto) U Hyaline Cast (Auto) U Epithel Cells (Auto) Urine Bacteria (Auto) Nasal Screen MRSA (PCR) 02/27/20 02/27/20 02/27/20 00:40 01:32 04:03 WBC RBC Hgb Hct MCV MCH MCHC RDW Std Deviation RDW Coeff of Nabeel Plt Count MPV Immature Gran % (Auto) Neut % (Auto) Lymph % (Auto) [place] % (Auto) Eos % (Auto) Baso % (Auto) Immature Gran # (Auto) Neut # (Auto) Lymph # (Auto) [place] # (Auto) Eos # (Auto) Baso # (Auto) PT INR APTT PTT Ratio Sodium Potassium 5.6 H D Chloride Carbon Dioxide Anion Gap BUN Creatinine 4.89 H* Est Cr Clr Drug Dosing 13.0 Est GFR ( Amer) 11.1 Est GFR (Non-Af Amer) 9.6 BUN/Creatinine Ratio Glucose Estimat Average Glucose 186 Hemoglobin A1c 8.1 H Lactate 0.9 Calcium Magnesium Total Bilirubin AST ALT Alkaline Phosphatase Troponin I Total Protein Albumin Globulin Albumin/Globulin Ratio TSH Urine Color Urine Appearance Urine pH Ur Specific [place] Urine Protein Urine Glucose (UA) Urine Ketones Urine Blood Urine Nitrite Urine Bilirubin Urine Urobilinogen Ur Leukocyte Esterase Urine WBC (Auto) Urine RBC (Auto) U Hyaline Cast (Auto) U Epithel Cells (Auto) Urine Bacteria (Auto) Nasal Screen MRSA (PCR) 02/27/20 02/27/20 04:03 06:20 WBC RBC Hgb Hct MCV MCH MCHC RDW Std Deviation RDW Coeff of Nabeel Plt Count MPV Immature Gran % (Auto) Neut % (Auto) Lymph % (Auto) [place] % (Auto) Eos % (Auto) Baso % (Auto) Immature Gran # (Auto) Neut # (Auto) Lymph # (Auto) [place] # (Auto) Eos # (Auto) Baso # (Auto) PT INR APTT PTT Ratio Sodium Potassium 4.9 Chloride Carbon Dioxide Anion Gap BUN Creatinine Est Cr Clr Drug Dosing Est GFR ( Amer) Est GFR (Non-Af Amer) BUN/Creatinine Ratio Glucose Estimat Average Glucose Hemoglobin A1c Lactate Calcium Magnesium Total Bilirubin AST ALT Alkaline Phosphatase Troponin I Total Protein Albumin Globulin Albumin/Globulin Ratio TSH Urine Color Urine Appearance Urine pH Ur Specific [place] Urine Protein Urine Glucose (UA) Urine Ketones Urine Blood Urine Nitrite Urine Bilirubin Urine Urobilinogen Ur Leukocyte Esterase Urine WBC (Auto) Urine RBC (Auto) U Hyaline Cast (Auto) U Epithel Cells (Auto) Urine Bacteria (Auto) Nasal Screen MRSA (PCR) Negative PG Care Time/CCT Total # of Minutes Spent Total Time Spent with Patient: Total time spent is greater than 50% in coordination of care (as documented) at patient's floor/unit and/or counseling patient: Coding Level of Care Code 52999 Inpt Consult Level 4 Diagnoses Acute kidney injury N17.9 Acute hyperkalemia E87.5 Weakness R53.1 DOMINGO (obstructive sleep apnea) G47.33 Crohns disease K50.919 Gastrointestinal tract location: unspecified location Digestive disease complication type: unspecified complication Diabetes mellitus, type 2 E11.9 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: without intermodal owner operator truck driver use Diabetes mellitus complication status: without complication (1) Crohns disease Gastrointestinal tract location: unspecified location Digestive disease complication type: unspecified complication Qualified Code(s): K50.919 - Crohn's disease, unspecified, with unspecified complications (2) Diabetes mellitus, type 2 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
--- NOTE | 2020-02-27 12:18 | Hospitalist Progress Note ---
Date of Service February 27, 2020 Assessment & Plan (1) Acute kidney injury: Likely related to GI losses - consider renal doppler US to eval presence of artery stenosis or thrombus causing acute decrease in blood flow and injury - Cr improving s/p fluid management continue IVF support, monitor UOP - daily bmp - nephrology c/s pending (2) Diarrhea: Seems likely related to short gut syndrome in the setting of recent abx use Probiotics IVF Monitor Recent cdiff neg, will not recheck now given no change in sx (3) Acute hyperkalemia: resolved s/p IVF, D50 followed by 10u regular insulin - calcium gluconate IV for cardioprotection - continued veltassa for K lowering (4) History of recent pneumonia: Was to finish augmentin 5/16 AM, did not get 5/15 HS dosing due to coming to ED WBC elevated with lactic acid WNL Started on cefepime/vanco in the ED related to recent admission Blood cx pending Monitor CTAP noted for RLL patchy infiltrate, read as possible infectious bronchiolitis (5) Hyponatremia: Resolved s/p IVF, likely related to GI losses (6) Weakness: Related to above (7) Crohns disease: Does not appear to be related to a Crohn's flare, no blood (8) Diabetes mellitus, type 2: h/o metformin use, however has been on hold related to recent renal issues A1c 7.8 SSI PRN (9) DVT prophylaxis: DVT ppx: heparin 5,000 BID I did ask pt if she would like me to call her . She states she will speak with him herself. Advised to alert nursing if he would like to discuss current care with me. 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 She has had 4 watery diarrheal episodes since she woke up. She still feels weak, but does note that she did not sleep much last night due to the admissions process. She does have cramping with the diarrhea, but no abd pain outside of this. Some nausea, without emesis. No blood in her stool. Pt denies fever, SOB, chest pain,LE pain or swelling. She does feel some UE swelling s/p IVF. Pt notes that she has hx of Crohn's and had had severe diarrhea in the past related to her Crohn's, but not in many years. She states that with her Crohn's flares there was also always blood in the stool and more pain. Pt states that she has somewhat looser stools at baseline s/p ileostomy x2, but this is much different than her baseline. She states that the diarrhea started with the first round of abx she was on for PNA and has never went away. At one point she did feel it was slightly improving, but then it worsened again. She has no hx of probiotic use. Review of Systems Review of Systems: Pertinent positives and negatives reviewed in HPI--all others negative Physical Exam Constitutional: WD/WN, vitals as above Eyes: normal visual mcrae by confrontation and + anicteric sclerae Neck: normal visual inspection and trachea midline Respiratory: normal respiratory effort, lungs clear to auscultation Cardiovascular: Rate/Rhythm: regular rate and regular rhythm Gastrointestinal (Abdomen): Inspection/Auscultation: abdomen not distended Percussion/Palpation: abdomen soft; abdomen nontender Musculoskeletal: Head/Neck/Chest: normocephalic and head atraumatic negative for edema, peripheral pulses intact Skin: no rashes, warm and dry Neurologic: awake; not confused Speech / Cognition: normal speech Psychiatric: A+Ox3, euthymic affect Results & Data Results & Data ([facility]) Vital Signs (Past 12 Hours) Vital Signs Temp Pulse Pulse Pulse Resp BP BP 02/27/20 10:57 36.8 C 90 19 91/57 L 02/27/20 07:47 36.7 C 97 H 17 100/67 02/27/20 03:17 36.5 C 95 H 20 90/59 L 02/27/20 01:59 36.6 C 92 H 16 108/74 02/27/20 01:52 36.6 C 92 H 18 108/74 02/27/20 01:30 94 H 18 95/60 L 02/27/20 01:15 95 H 24 88/61 L 02/27/20 01:00 94 H 19 94/57 L 02/27/20 00:45 94 H 20 91/57 L 02/27/20 00:38 98 H 25 H Pulse Ox 02/27/20 10:57 99 02/27/20 07:47 99 02/27/20 03:17 98 02/27/20 01:59 100 02/27/20 01:52 100 02/27/20 01:30 98 02/27/20 01:15 99 02/27/20 01:00 100 02/27/20 00:45 100 02/27/20 00:38 99 PG Care Time/CCT Total # of Minutes Spent Total Time Spent with Patient: Total time spent is greater than 50% in coordination of care (as documented) at patient's floor/unit and/or counseling patient: Coding Level of Care Code 76893 Subseq Hosp Care Lvl 3 Diagnoses Acute kidney injury N17.9 Diarrhea R19.7 Acute hyperkalemia E87.5 History of recent pneumonia Z87.01 Hyponatremia E87.1 Weakness R53.1 Crohns disease K50.919 Gastrointestinal tract location: unspecified location Digestive disease complication type: unspecified complication Diabetes mellitus, type 2 E11.9 Diabetes mellitus residential insulin use: without residential use Diabetes mellitus complication status: without complication DVT prophylaxis Z29.9 (1) Crohns disease Gastrointestinal tract location: unspecified location Digestive disease complication type: unspecified complication Qualified Code(s): K50.919 - Crohn's disease, unspecified, with unspecified complications (2) Diabetes mellitus, type 2 Diabetes mellitus manager 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 insulin use: without manager 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 use Diabetes mellitus complication status: without complication Qualified Code(s): E11.9 - Type 2 diabetes mellitus without complications
[2020-02-27] MEDS: LACTOBACILLUS ACIDOPHILUS (FLORANEX) TAB PO SCH ×2 (12:44→16:41)
[2020-02-27] MEDS: FERROUS SULFATE 325 MG TAB PO SCH (12:44)
[2020-02-27 17:26] LABS: BUN Creatinine Ratio 23.7 (10-20); Calcium 8.2 mg/dl (8.5-10.1); Creatinine Clr Calc Pharmacy 19.5 ml/min; Est GFR (Non-African American) 15.5; Potassium 5.1 mmol/L (3.5-5.1)
[2020-02-27 17:29] LABS: Phosphorus 6.3 mg/dl (2.5-4.9)
--- NOTE | 2020-02-28 05:35 | Billing Data ---
Date of Service February 28, 2020 Coding Level of Care Code 55061 Initial Inpt Care Lvl 3
[2020-02-28 05:59] LABS: Basophils # (auto) 0.05 K/uL (0-0.2); Basophils % (auto) 0.8 %; Eosinophils # (auto) 0.28 K/uL (0-0.5); Eosinophils % (auto) 4.5 %; Hematocrit (blood only) 30.1 % (37-47); Hemoglobin 9.8 g/dL (12.0-16.0); Immature Granulocytes # (auto) 0.04 K/uL (0.00-0.02); Immature Granulocytes % (auto) 0.6 %; Lymphocytes # (auto) 0.94 K/uL (1.2-3.4); Mean Corpuscular Hemoglobin 26.9 pg (25-34); Mean Corpuscular Hgb Conc 32.6 g/dL (32-36); Mean Corpuscular Volume 82.7 fL (80-100); Mean Platelet Volume 9.7 fL (7.4-10.4); Monocytes # (auto) 0.31 K/uL (0.11-0.59); Neutrophils # (auto) 4.63 K/uL (1.4-6.5); Neutrophils % (auto) 74.1 %; Platelet Count 195 K/uL (130-400); RDW Coefficient of Variation 17.4 % (11.5-14.5); RDW Standard Deviation 52.7 fL (36.4-46.3); Red Blood Count 3.64 M/uL (4.2-5.4); White Blood Count 6.25 K/uL (4.8-10.8)
[2020-02-28] MEDS ORDERED: CEFEPIME 1,000 MG in SYRINGE 0 ML IV SCH (06:00)
[2020-02-28 06:34] LABS: BUN Creatinine Ratio 26.7 (10-20); Calcium 8.8 mg/dl (8.5-10.1); Creatinine Clr Calc Pharmacy 25.9 ml/min; Est GFR (African American) 25.3; Est GFR (Non-African American) 21.8; Magnesium 2.1 mg/dl (1.8-2.4); Potassium 4.5 mmol/L (3.5-5.1)
[2020-02-28] MEDS: METOPROLOL SUCC 25MG EXT REL TAB PO SCH (08:13)
[2020-02-28] MEDS: DONEPEZIL HCL 10 MG TAB PO SCH (08:13)
[2020-02-28] MEDS: LACTOBACILLUS ACIDOPHILUS (FLORANEX) TAB PO SCH ×3 (08:13→16:43)
[2020-02-28] MEDS: CHOLECALCIFEROL 1,000 UNITS 25 MCG TAB PO SCH (08:13)
[2020-02-28] MEDS: PANTOprazole 40 MG TAB PO SCH (08:13)
[2020-02-28] MEDS: MONTELUKAST SODIUM 10 MG TABLET PO SCH (08:13)
[2020-02-28] MEDS: ATORVASTATIN 40 MG TAB PO SCH (08:13)
[2020-02-28] MEDS: VENLAFAXINE HCL XR 150 MG CAPXR PO SCH (08:13)
[2020-02-28] MEDS: UMECLIDINIUM/VILANTEROL 62.5/25MCG 7 PUFFS/INHALER INH SCH (08:14)
[2020-02-28] MEDS ORDERED: VANCOMYCIN HCL 1,250 MG in SODIUM CHLORIDE 0.9% 250 ML IV STA (08:14)
[2020-02-28] MEDS: NORTRIPTYLINE HCL 25 MG CAP PO SCH ×2 (08:14→20:58)
[2020-02-28] MEDS: HEPARIN SOD 5,000 UNIT/0.5 ML VIAL SQ SCH ×2 (08:14→20:59)
[2020-02-28] MEDS: FLUTICASONE FUROATE 100MCG 14 PUFFS/INHALER INH SCH (08:14)
[2020-02-28] MEDS: MEMANTINE HCL 10 MG TAB PO SCH ×2 (08:14→20:59)
[2020-02-28] MEDS: SODIUM BICARBONATE 8.4% 75 MEQ in SODIUM CHLORIDE 0.45 % 1,000 ML IV SCH ×2 (08:22→23:47)
[2020-02-28] MEDS: FERROUS SULFATE 325 MG TAB PO SCH (08:22)
[2020-02-28] MEDS: FLUOXETINE HCL 20 MG CAP PO SCH (08:25)
--- NOTE | 2020-02-28 08:31 | Pharmacy Report ---
Pharmacy Abx Dose Short Note - Date of Service February 28, 2020 - Assessment & Plan Assessment 49 year old F receiving IV Vancomycin and Cefepime (not a consult) for empiric treatment of sepsis without clear source - possible related to recent history pneumonia; patient has been admitted 3 times (including this admission) past 90 days and has received various antibiotic Day # 2 of antimicrobial therapy. * Patient presented with MISTY; renal function improving. sCr decr' to 2.47 mg/dL (from 4.89 mg/dL) today. Given rapidly changing renal function, will continue to dose Vancomycin prn based on random levels. Plan Vancomycin * Random level of 13 mcg/mL is subtherapeutic * Give Vancomycin 1250mg (~15mg/kg) IV x 1 today * Goal trough level for sepsis : 15 to 20 mcg/mL * Random level ordered for: 02/29/20 with AM labs * Procalcitonin level ordered to assist with assessment of infectious picture * Will f/u with provider on 02/28 to determine duration of therapy (patient will have received antibiotics x 48 hours at that point) Pharmacy will continue to follow and will adjust dose/frequency as necessary. Thank you.
[2020-02-28] MEDS ORDERED: Nursing to Pharmacy Communication ONE (08:39)
--- NOTE | 2020-02-28 11:48 | Nephrology Progress Note ---
Date of Service February 28, 2020 Assessment & Plan (1) Acute kidney injury: -- Baseline creatinine 1.2-1.5 mg/dL -- Creatinine improving with IVF replacement consistent with prerenal MISTY from dehydration related to high ostomy output -- CT negative for obstruction -- UA demonstrates +1 protein (chronic), few RBC's, no WBC's -- Non-oliguric -- BP remains low but acceptable -- Continue to document I/O's -- Metabolic acidosis improving with HCO3 replacement and improvement in kidney function -- Continue 1/2NS+75 mEq NaHCO3 to maintain a positive fluid balance -- Medications area appropriately dosed for kidney dysfunction including cefepime. Vanco dosing per pharmacy. -- Repeat metabolic profile tomorrow AM. (2) Acute hyperkalemia: -- Hyperkalemia improved with HCO3 replacement and patiromer. Stop patiromer. Maintain low K+ diet. -- IV MgSO4 2 gm ordered for hypomagnesemia. (3) Weakness: -- Improving with hydration. (4) DOMINGO (obstructive sleep apnea): (5) Crohns disease: -- Consider GI consultation for high-ostomy output, if there is no improvement. (6) Diabetes mellitus, type 2: Admission and Anticipated Discharge Date Admission Date: February 27, 2020 Subjective Ms. Isidro feels reasonably well this morning. Appetite remains decreased but nausea has significantly improved. She unfortunately continues to have a significant amount of watery ostomy output. Her strength has improved. Lightheadedness seems to have resolved. She continues to deny any abdominal pain. Stool is watery/liquid and without mucus or blood. No fevers or chills. Review of Systems Review of Systems: All systems reviewed & are unremarkable except as noted in HPI & below Physical Exam Constitutional: + obese; no acute distress Eyes: + anicteric sclerae ENMT: Mouth: no oral mucosal abnormality and oral mucous membranes not dry Neck: normal visual inspection and trachea midline Respiratory: normal respiratory effort Auscultation: lungs clear to auscultation bilaterally Cardiovascular: Rate/Rhythm: regular rate Heart Sounds: normal S1 and normal S2 Extremities: no edema Gastrointestinal (Abdomen): Percussion/Palpation: + abdomen tender (mild left sided) and abdomen soft; no guarding and abdomen not rigid Musculoskeletal: Extremities: no cyanosis and no clubbing Skin: normal turgor; no rashes Neurologic: Motor/Sensory: no tremor and no asterixis Psychiatric: Orientation: alert and oriented x 3 Results & Data ([facility]) Vital Signs (Past 12 Hours) Vital Signs Temp Pulse Resp BP Pulse Ox 02/28/20 11:03 37.1 C 83 18 100/67 98 02/28/20 07:06 36.6 C 83 19 93/61 L 92 02/28/20 03:56 36.5 C 74 16 90/65 L 97 Laboratory Results Laboratory Results - last 24 hr 02/27/20 02/28/20 02/28/20 17:01 05:22 05:22 WBC 6.25 RBC 3.64 L Hgb 9.8 L Hct 30.1 L MCV 82.7 MCH 26.9 MCHC 32.6 RDW Std Deviation 52.7 H RDW Coeff of Nabeel 17.4 H Plt Count 195 MPV 9.7 Immature Gran % (Auto) 0.6 Neut % (Auto) 74.1 Lymph % (Auto) 15.0 [place] % (Auto) 5.0 Eos % (Auto) 4.5 Baso % (Auto) 0.8 Immature Gran # (Auto) 0.04 H Neut # (Auto) 4.63 Lymph # (Auto) 0.94 L [place] # (Auto) 0.31 Eos # (Auto) 0.28 Baso # (Auto) 0.05 Sodium 138 Potassium 5.1 Chloride 111 H Carbon Dioxide 17 L Anion Gap 10.0 BUN 78 H Creatinine 3.28 H D Est Cr Clr Drug Dosing 19.5 Est GFR ( Amer) 18.0 Est GFR (Non-Af Amer) 15.5 BUN/Creatinine Ratio 23.7 H Glucose 134 H Calcium 8.2 L Phosphorus 6.3 H Magnesium Total Creatine Kinase 45 Albumin 3.0 L Procalcitonin Random Vancomycin 13.0 02/28/20 02/28/20 05:22 08:28 WBC RBC Hgb Hct MCV MCH MCHC RDW Std Deviation RDW Coeff of Nabeel Plt Count MPV Immature Gran % (Auto) Neut % (Auto) Lymph % (Auto) [place] % (Auto) Eos % (Auto) Baso % (Auto) Immature Gran # (Auto) Neut # (Auto) Lymph # (Auto) [place] # (Auto) Eos # (Auto) Baso # (Auto) Sodium 141 Potassium 4.5 Chloride 111 H Carbon Dioxide 18 L Anion Gap 12.0 H BUN 66 H Creatinine 2.47 H D Est Cr Clr Drug Dosing 25.9 Est GFR ( Amer) 25.3 Est GFR (Non-Af Amer) 21.8 BUN/Creatinine Ratio 26.7 H Glucose 102 H Calcium 8.8 Phosphorus Magnesium 2.1 Total Creatine Kinase Albumin Procalcitonin 0.32 Random Vancomycin PG Care Time/CCT Total # of Minutes Spent Total Time Spent with Patient: Total time spent is greater than 50% in coordination of care (as documented) at patient's floor/unit and/or counseling patient: Coding Level of Care Code 97063 Subseq Hosp Care Lvl 3 Diagnoses Acute kidney injury N17.9 Acute hyperkalemia E87.5 Weakness R53.1 DOMINGO (obstructive sleep apnea) G47.33 Crohns disease K50.919 Gastrointestinal tract location: unspecified location Digestive disease complication type: unspecified complication Diabetes mellitus, type 2 E11.9 Diabetes mellitus fdc insulin use: without continuous churn buttermaker use Diabetes mellitus complication status: without complication (1) Crohns disease Gastrointestinal tract location: unspecified location Digestive disease complication type: unspecified complication Qualified Code(s): K50.919 - Crohn's disease, unspecified, with unspecified complications (2) Diabetes mellitus, type 2 Diabetes mellitus fdc insulin use: without fdc use Diabetes mellitus complication status: without complication Qualified Code(s): E11.9 - Type 2 diabetes mellitus without complications
[2020-02-28] MEDS ORDERED: PATIROMER CALCIUM SORBITEX 8.4 GM PACK PO SCH (14:00)
--- NOTE | 2020-02-28 15:25 | Hospitalist Progress Note ---
Date of Service February 28, 2020 Assessment & Plan (1) Acute kidney injury: Likely related to GI losses - consider renal doppler US to eval presence of artery stenosis or thrombus causing acute decrease in blood flow and injury - Cr improving s/p fluid management continue IVF support, monitor UOP - daily bmp - nephrology c/s noted, agrees with current management (2) Leukocytosis: Uncertain etiology Possibly untx PNA--patchy infiltrate noted on CTAP Improving s/p abx Started on vanco/cefepime in the ED D/C vanco on 02/27 given improvement on WBC and blood cx neg on prelim x2 Lactic acid WNL x2 on admission (3) Diarrhea: Possibly related to recent abx use as pt states she had no similar issues until she was several days into the abx tx for her initial PNA Pt is high risk for prolonged diarrhea related to abx use due to Crohn's and colon resection x2 Lactobacillus to start, ideally would also replace bifido species, however not an inpt tx option No hx of similar issues with missing Stelara dosing in the past Cdiff neg on last admission, will not repeat (4) Acute hyperkalemia: resolved s/p IVF, D50 followed by 10u regular insulin - calcium gluconate IV for cardioprotection - continued veltassa for K lowering (5) Weakness: Related to above (6) DOMINGO (obstructive sleep apnea): (7) Crohns disease: Does not appear to be related to a Crohn's flare, no blood (8) Diabetes mellitus, type 2: h/o metformin use, however has been on hold related to recent renal issues A1c 7.8 SSI PRN Admission and Anticipated Discharge Date Admission Date: February 27, 2020 Subjective Pt feels that her weakness is still present, but improving. She has felt better up in the chair and ambulating to the restroom. Swelling in her hands is better with decreased IVF rate. Pt denies fever, SOB, chest pain, abd pain, LE pain or swelling. She continues to feel mildly bloated and with ongoing diarrhea. She is still nauseated, but no emesis. She continues to force PO. She states that she has been using Stelara injections [id number] x2 yrs. She states it was due around the beginning of February and she has been this late in receiving the injection prior without issues. She states she did not take it due to not returning a phone call from the drug company. Review of Systems Review of Systems: Pertinent positives and negatives reviewed in HPI--all others negative Physical Exam Constitutional: WD/WN, vitals as above Eyes: normal visual mcrae by confrontation and + anicteric sclerae Neck: normal visual inspection and trachea midline Respiratory: normal respiratory effort, lungs clear to auscultation Cardiovascular: Rate/Rhythm: regular rate and regular rhythm Gastrointestinal (Abdomen): Inspection/Auscultation: abdomen not distended Percussion/Palpation: abdomen soft; abdomen nontender Musculoskeletal: Head/Neck/Chest: normocephalic and head atraumatic Skin: no rashes, warm and dry Neurologic: awake; not confused Speech / Cognition: normal speech Psychiatric: A+Ox3, euthymic affect Results & Data Results & Data ([facility]) Vital Signs (Past 12 Hours) Vital Signs Temp Pulse Resp BP Pulse Ox 02/28/20 11:03 37.1 C 83 18 100/67 98 02/28/20 07:06 36.6 C 83 19 93/61 L 92 02/28/20 03:56 36.5 C 74 16 90/65 L 97 PG Care Time/CCT Total # of Minutes Spent Total Time Spent with Patient: Total time spent is greater than 50% in coordination of care (as documented) at patient's floor/unit and/or counseling patient: Coding Level of Care Code 53145 Subseq Hosp Care Lvl 3 Diagnoses Acute kidney injury N17.9 Leukocytosis D72.829 Diarrhea R19.7 Acute hyperkalemia E87.5 Weakness R53.1 DOMINGO (obstructive sleep apnea) G47.33 Crohns disease K50.919 Gastrointestinal tract location: unspecified location Digestive disease complication type: unspecified complication Diabetes mellitus, type 2 E11.9 Diabetes mellitus custodial insulin use: without custodial use Diabetes mellitus complication status: without complication (1) Crohns disease Gastrointestinal tract location: unspecified location Digestive disease complication type: unspecified complication Qualified Code(s): K50.919 - Crohn's disease, unspecified, with unspecified complications (2) Diabetes mellitus, type 2 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
[2020-02-28] MEDS ORDERED: CEFEPIME 2,000 MG in SYRINGE 7.5 ML IV SCH (18:00)
[2020-02-29 06:00] LABS: Basophils # (auto) 0.03 K/uL (0-0.2); Basophils % (auto) 0.5 %; Eosinophils # (auto) 0.32 K/uL (0-0.5); Eosinophils % (auto) 4.8 %; Hematocrit (blood only) 29.6 % (37-47); Hemoglobin 9.5 g/dL (12.0-16.0); Immature Granulocytes # (auto) 0.03 K/uL (0.00-0.02); Immature Granulocytes % (auto) 0.5 %; Lymphocytes # (auto) 1.48 K/uL (1.2-3.4); Lymphocytes % (auto) 22.3 %; Mean Corpuscular Hemoglobin 26.4 pg (25-34); Mean Corpuscular Hgb Conc 32.1 g/dL (32-36); Mean Corpuscular Volume 82.2 fL (80-100); Mean Platelet Volume 9.5 fL (7.4-10.4); Monocytes # (auto) 0.57 K/uL (0.11-0.59); Monocytes % (auto) 8.6 %; Neutrophils % (auto) 63.3 %; Platelet Count 205 K/uL (130-400); RDW Coefficient of Variation 17.2 % (11.5-14.5); RDW Standard Deviation 51.8 fL (36.4-46.3); White Blood Count 6.63 K/uL (4.8-10.8)
[2020-02-29 06:44] LABS: Albumin Level 2.7 gm/dl (3.4-5.0); BUN Creatinine Ratio 26.4 (10-20); Calcium 8.2 mg/dl (8.5-10.1); Creatinine Clr Calc Pharmacy 41.7 ml/min; Est GFR (African American) 44.8; Est GFR (Non-African American) 38.7; Phosphorus 2.9 mg/dl (2.5-4.9); Potassium 4.4 mmol/L (3.5-5.1)
[2020-02-29] MEDS: HEPARIN SOD 5,000 UNIT/0.5 ML VIAL SQ SCH ×2 (08:22→21:46)
[2020-02-29] MEDS: CHOLECALCIFEROL 1,000 UNITS 25 MCG TAB PO SCH (08:22)
[2020-02-29] MEDS: MONTELUKAST SODIUM 10 MG TABLET PO SCH (08:22)
[2020-02-29] MEDS: MEMANTINE HCL 10 MG TAB PO SCH ×2 (08:22→21:47)
[2020-02-29] MEDS: PANTOprazole 40 MG TAB PO SCH (08:23)
[2020-02-29] MEDS: NORTRIPTYLINE HCL 25 MG CAP PO SCH ×2 (08:23→21:46)
[2020-02-29] MEDS: LACTOBACILLUS ACIDOPHILUS (FLORANEX) TAB PO SCH ×3 (08:23→17:40)
[2020-02-29] MEDS: ATORVASTATIN 40 MG TAB PO SCH (08:24)
[2020-02-29] MEDS: DONEPEZIL HCL 10 MG TAB PO SCH (08:24)
[2020-02-29] MEDS: VENLAFAXINE HCL XR 150 MG CAPXR PO SCH (08:24)
[2020-02-29] MEDS: FLUTICASONE FUROATE 100MCG 14 PUFFS/INHALER INH SCH (08:25)
[2020-02-29] MEDS: METOPROLOL SUCC 25MG EXT REL TAB PO SCH (08:25)
[2020-02-29] MEDS: UMECLIDINIUM/VILANTEROL 62.5/25MCG 7 PUFFS/INHALER INH SCH (08:25)
[2020-02-29] MEDS: FLUOXETINE HCL 20 MG CAP PO SCH (08:27)
--- NOTE | 2020-02-29 10:11 | Nephrology Progress Note ---
Date of Service February 29, 2020 Assessment & Plan (1) Acute kidney injury: -- Baseline creatinine 1.2-1.5 mg/dL -- Creatinine improved to 1.5 mg/dL with IVF replacement -- Clinical presentation consistent with prerenal MISTY from dehydration related to high ostomy output -- CT negative for obstruction -- UA demonstrates +1 protein (chronic), few RBC's, no WBC's -- BP remains acceptable -- Continue to document I/O's including ostomy output -- Metabolic acidosis improving with HCO3 replacement and improvement in kidney function -- Stop 1/2NS+75 mEq NaHCO3 after current bag complete -- Medications area appropriately dosed for kidney dysfunction -- Repeat metabolic profile tomorrow AM (2) Acute hyperkalemia: -- Due to MISTY -- Resolved (3) Crohns disease: -- GI follow up strongly encouraged, high-ostomy output closely monitored Admission and Anticipated Discharge Date Admission Date: February 27, 2020 Subjective No acute events overnight. Liquid ostomy output persists. 850 ml of stool in past 24 hours. Appetite improving. Tolerating oral liquids. Some puffiness in fingers noted. Otherwise, tolerating IVF well. Overall, Yu notes continued improvement in strength. Nausea has resolved. Review of Systems Review of Systems: All systems reviewed & are unremarkable except as noted in HPI & below Physical Exam Physical Exam: Deferred due to COVID 19 pandemic. Constitutional: no acute distress Cardiovascular: Extremities: no edema Results & Data ([facility]) Vital Signs (Past 12 Hours) Vital Signs Temp Pulse Pulse Resp BP Pulse Ox 02/29/20 07:40 36.3 C L 84 18 110/76 98 02/29/20 03:23 36.6 C 84 16 110/75 96 02/29/20 00:00 116 H 02/28/20 22:58 36.8 C 90 18 109/74 98 Laboratory Results Laboratory Results - last 24 hr 02/29/20 02/29/20 05:33 05:33 WBC 6.63 RBC 3.60 L Hgb 9.5 L Hct 29.6 L MCV 82.2 MCH 26.4 MCHC 32.1 RDW Std Deviation 51.8 H RDW Coeff of Nabeel 17.2 H Plt Count 205 MPV 9.5 Immature Gran % (Auto) 0.5 Neut % (Auto) 63.3 Lymph % (Auto) 22.3 [place] % (Auto) 8.6 Eos % (Auto) 4.8 Baso % (Auto) 0.5 Immature Gran # (Auto) 0.03 H Neut # (Auto) 4.20 Lymph # (Auto) 1.48 [place] # (Auto) 0.57 Eos # (Auto) 0.32 Baso # (Auto) 0.03 Sodium 143 Potassium 4.4 Chloride 111 H Carbon Dioxide 24 Anion Gap 8.0 BUN 41 H Creatinine 1.54 H D Est Cr Clr Drug Dosing 41.7 Est GFR ( Amer) 44.8 Est GFR (Non-Af Amer) 38.7 BUN/Creatinine Ratio 26.4 H Glucose 92 Calcium 8.2 L Phosphorus 2.9 D Albumin 2.7 L PG Care Time/CCT Total # of Minutes Spent Total Time Spent with Patient: Total time spent is greater than 50% in coordination of care (as documented) at patient's floor/unit and/or counseling patient: Coding Level of Care Code 63365 Subseq Hosp Care Lvl 3 Diagnoses Acute kidney injury N17.9 Acute hyperkalemia E87.5 Crohns disease K50.919 Gastrointestinal tract location: unspecified location Digestive disease complication type: unspecified complication (1) Crohns disease Gastrointestinal tract location: unspecified location Digestive disease complication type: unspecified complication Qualified Code(s): K50.919 - Crohn's disease, unspecified, with unspecified complications
[2020-02-29] MEDS: FERROUS SULFATE 325 MG TAB PO SCH (11:47)
[2020-02-29] MEDS: SODIUM BICARBONATE 8.4% 75 MEQ in SODIUM CHLORIDE 0.45 % 1,000 ML IV SCH (12:16)
[2020-02-29] MEDS: LOPERAMIDE HCL 2 MG CAP PO PRN (15:15)
[2020-02-29] MEDS: CEFEPIME 2,000 MG in SYRINGE 7.5 ML IV SCH (15:15)
--- NOTE | 2020-02-29 15:44 | Consultation Report ---
DATE OF CONSULTATION: 02/29/2020 GASTROINTESTINAL CONSULTATION REASON FOR CONSULTATION: High ileostomy output. HISTORY OF PRESENT ILLNESS: The patient is a 49-year-old diagnosed with ileocolonic Crohn disease at age 19. She has had a subtotal colectomy and about 20% of her small intestine was removed in the past. She has a rectal stump and had a right-sided ileostomy that had to be reimplanted on the left side due to a stomal hernia and ulceration that was successful. In 08/2018, she had endoscopies done of all orifices upper or lower and ileostomy with no active Crohn's found. She has been maintained on Stelara 90 mg every 3 months for psoriasis, which also is treating her Crohn's disease. Her main problem is that she has occasional bouts where she has high ileostomy outputs, which cause dehydration and electrolyte disturbance and acute renal insufficiency requiring hospitalizations, which appears to be the cause for her admission during this hospitalization. The patient is putting out about 850 mL per 24 hours of fluid and she has been feeling weak. These have been corrected with IV fluid replacement. Currently, the patient is not taking any medication for her ostomy outputs, but in the past has used Imodium successfully. 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 Jeter. There was no extension or lymph node involvement and no adjuvant therapy was required. The patient has chronic renal issues, type 2 diabetes, obstructive sleep apnea, depression, former smoker, history of pancreatitis, psoriasis, sacroiliitis and she has had bowel resection, cholecystectomy, adenoidectomy, hernia repair for ileostomy, right upper lobe lobectomy, tonsillectomy, tooth extraction and thyroidectomy. MEDICATIONS: Per list. ALLERGIES: None. FAMILY HISTORY: Aunt had breast cancer. Mother has diabetes. SOCIAL HISTORY: The patient is single, lives with son and daughter. Smoked in the past, but not currently. Does not use any alcohol. REVIEW OF SYSTEMS: Positive for some weakness. Remainder is negative. PHYSICAL EXAMINATION: GENERAL: The patient is overweight, in no acute distress. VITAL SIGNS: Blood pressure is 117/83, pulse 76, respirations 19, temperature is 36.7, room air saturation is 96%. ABDOMEN: Shows a midline scar with a left-sided ileostomy and a right-sided ostomy scar - all well healed. Her ostomy looks very healthy. It is not protruding and there is some dark greenish brown material in the bag, some liquid, some mustard consistency. There is no tenderness in the abdomen. IMPRESSION AND PLAN: The patient has high ileostomy output, partially due to previous resections and limitation on the ability to absorb nutrients and fluid following her subtotal colectomy and shortening of her small bowel. This is being corrected currently and in the future, I would recommend that she use Imodium 2-4 mg up to 3 times a day as needed to help slow her ostomy outputs and prevent dehydration and electrolyte disturbances. Also, if she starts feeling like she is getting dehydrated, I would recommend that she fluid replace with something containing electrolytes and not just water, such as Pedialyte or Gatorade. There does not appear to be any active Crohn disease at this time.
--- NOTE | 2020-02-29 18:53 | Hospitalist Progress Note ---
Date of Service February 29, 2020 Assessment & Plan (1) Acute kidney injury: Likely related to GI losses - consider renal doppler US to eval presence of artery stenosis or thrombus causing acute decrease in blood flow and injury - Cr improving s/p fluid management continue IVF support, monitor UOP - daily bmp, cr continues to improve - nephrology c/s noted, agrees with current management (2) Leukocytosis: Uncertain etiology Possibly untx PNA--patchy infiltrate noted on CTAP Improving s/p abx Started on vanco/cefepime in the ED D/C vanco on 02/27 given improvement on WBC and blood cx neg on prelim x2 Lactic acid WNL x2 on admission (3) Diarrhea: Possibly related to recent abx use as pt states she had no similar issues until she was several days into the abx tx for her initial PNA Pt is high risk for prolonged diarrhea related to abx use due to Crohn's and colon resection x2 Lactobacillus, ideally would also replace bifido species, however not an inpt tx option No hx of similar issues with missing Stelara dosing in the past Cdiff neg on last admission, will not repeat GI recs for Imodium TID PRN (4) Acute hyperkalemia: resolved s/p IVF, D50 followed by 10u regular insulin - calcium gluconate IV for cardioprotection - continued veltassa for K lowering (5) Weakness: Related to above (6) DOMINGO (obstructive sleep apnea): (7) Crohns disease: Does not appear to be related to a Crohn's flare, no blood (8) Diabetes mellitus, type 2: h/o metformin use, however has been on hold related to recent renal issues A1c 7.8 SSI PRN Admission and Anticipated Discharge Date Admission Date: February 27, 2020 Subjective Pt feels her strength and appetite are better. Still with some nausea, no emesis. Ongoing increased ostomy output that is not improving. Pt denies fever, SOB, chest pain, abd pain, LE pain or swelling. Review of Systems Review of Systems: Pertinent positives and negatives reviewed in HPI--all others negative Physical Exam Constitutional: WD/WN, vitals as above Eyes: normal visual mcrae by confrontation and + anicteric sclerae Neck: normal visual inspection and trachea midline Respiratory: normal respiratory effort, lungs clear to auscultation Cardiovascular: Rate/Rhythm: regular rate and regular rhythm Gastrointestinal (Abdomen): Inspection/Auscultation: abdomen not distended Percussion/Palpation: abdomen soft; abdomen nontender Musculoskeletal: Head/Neck/Chest: normocephalic and head atraumatic Skin: no rashes, warm and dry Neurologic: awake; not confused Speech / Cognition: normal speech Psychiatric: A+Ox3, euthymic affect Results & Data Results & Data ([facility]) Vital Signs (Past 12 Hours) Vital Signs Temp Pulse Pulse Resp BP Pulse Ox 02/29/20 15:23 36.7 C 91 H 18 131/89 97 02/29/20 11:05 36.7 C 76 19 117/83 96 02/29/20 10:00 74 02/29/20 07:40 36.3 C L 84 18 110/76 98 PG Care Time/CCT Total # of Minutes Spent Total Time Spent with Patient: Total time spent is greater than 50% in coordination of care (as documented) at patient's floor/unit and/or counseling patient: Coding Level of Care Code 72432 Subseq Hosp Care Lvl 3 Diagnoses Acute kidney injury N17.9 Leukocytosis D72.829 Diarrhea R19.7 Acute hyperkalemia E87.5 Weakness R53.1 DOMINGO (obstructive sleep apnea) G47.33 Crohns disease K50.919 Gastrointestinal tract location: unspecified location Digestive disease complication type: unspecified complication Diabetes mellitus, type 2 E11.9 Diabetes mellitus senior living insulin use: without senior living use Diabetes mellitus complication status: without complication (1) Crohns disease Gastrointestinal tract location: unspecified location Digestive disease complication type: unspecified complication Qualified Code(s): K50.919 - Crohn's disease, unspecified, with unspecified complications (2) Diabetes mellitus, type 2 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
[2020-03-01] MEDS: CEFEPIME 2,000 MG in SYRINGE 7.5 ML IV SCH (03:21)
[2020-03-01] MEDS: MEMANTINE HCL 10 MG TAB PO SCH (07:33)
[2020-03-01] MEDS: ATORVASTATIN 40 MG TAB PO SCH (07:33)
[2020-03-01] MEDS: VENLAFAXINE HCL XR 150 MG CAPXR PO SCH (07:33)
[2020-03-01] MEDS: HEPARIN SOD 5,000 UNIT/0.5 ML VIAL SQ SCH (07:33)
[2020-03-01] MEDS: FLUOXETINE HCL 20 MG CAP PO SCH (07:34)
[2020-03-01] MEDS: MONTELUKAST SODIUM 10 MG TABLET PO SCH (07:34)
[2020-03-01] MEDS: DONEPEZIL HCL 10 MG TAB PO SCH (07:34)
[2020-03-01] MEDS: PANTOprazole 40 MG TAB PO SCH (07:34)
[2020-03-01] MEDS: CHOLECALCIFEROL 1,000 UNITS 25 MCG TAB PO SCH (07:34)
[2020-03-01] MEDS: LACTOBACILLUS ACIDOPHILUS (FLORANEX) TAB PO SCH ×2 (07:35→11:17)
[2020-03-01] MEDS: UMECLIDINIUM/VILANTEROL 62.5/25MCG 7 PUFFS/INHALER INH SCH (07:35)
[2020-03-01] MEDS: FLUTICASONE FUROATE 100MCG 14 PUFFS/INHALER INH SCH (07:35)
[2020-03-01] MEDS: NORTRIPTYLINE HCL 25 MG CAP PO SCH (07:36)
[2020-03-01] MEDS: METOPROLOL SUCC 25MG EXT REL TAB PO SCH (07:43)
[2020-03-01 08:13] LABS: Albumin Level 2.7 gm/dl (3.4-5.0); BUN Creatinine Ratio 18.5 (10-20); Calcium 8.6 mg/dl (8.5-10.1); Creatinine Clr Calc Pharmacy 45.8 ml/min; Est GFR (African American) 50.3; Est GFR (Non-African American) 43.4; Phosphorus 3.2 mg/dl (2.5-4.9); Potassium 4.2 mmol/L (3.5-5.1)
[2020-03-01] MEDS: LOPERAMIDE HCL 2 MG CAP PO PRN (10:07)
--- NOTE | 2020-03-01 10:36 | Nephrology Progress Note ---
Date of Service March 01, 2020 Assessment & Plan (1) Acute kidney injury: -- Baseline creatinine 1.2-1.5 mg/dL -- Creatinine stable now at baseline -- IVF stopped yesterday -- Clinical presentation consistent with prerenal MISTY from dehydration related to high ostomy output -- CT negative for obstruction -- UA demonstrates +1 protein (chronic), few RBC's, no WBC's -- BP remains acceptable -- Medications area appropriately dosed for kidney dysfunction; continue to hold metformin for now -- Repeat metabolic profile within 1 week of hospital discharge -- Follow up with me in the nephrology clinic within 1 week of discharge (2) Crohns disease: -- High-output ostomy without evidence of IBD flare -- GI consult appreciated -- Improvement noted Admission and Anticipated Discharge Date Admission Date: February 27, 2020 Subjective No acute events overnight. Ostomy output improving. No abdominal pain. Appetite is good. Overall, Yu feels well and hopes to be discharged home today. Review of Systems Review of Systems: All systems reviewed & are unremarkable except as noted in HPI & below Physical Exam Physical Exam: Deferred due to COVID 19 pandemic. Constitutional: no acute distress Eyes: + anicteric sclerae ENMT: Mouth: no oral mucosal abnormality and oral mucous membranes not dry Neck: normal visual inspection and trachea midline Respiratory: normal respiratory effort Auscultation: lungs clear to auscultation bilaterally Cardiovascular: Rate/Rhythm: regular rate Heart Sounds: normal S1 and normal S2 Extremities: no edema Gastrointestinal (Abdomen): Inspection/Auscultation: + abdomen distended Percussion/Palpation: + abdomen tender (mild left sided) and abdomen soft; no guarding and abdomen not rigid Musculoskeletal: Extremities: no cyanosis and no clubbing Skin: normal turgor; no rashes Neurologic: Motor/Sensory: no tremor and no asterixis Psychiatric: Orientation: alert and oriented x 3 Results & Data ([facility]) Vital Signs (Past 12 Hours) Vital Signs Temp Pulse Pulse Resp BP Pulse Ox 03/01/20 07:54 36.6 C 90 18 126/80 97 03/01/20 07:00 85 03/01/20 03:13 36.7 C 80 17 110/74 95 02/29/20 23:29 37.1 C 93 H 18 109/74 93 Laboratory Results Laboratory Results - last 24 hr 03/01/20 07:09 Sodium 141 Potassium 4.2 Chloride 108 H Carbon Dioxide 24 Anion Gap 9.0 BUN 26 H Creatinine 1.40 H Est Cr Clr Drug Dosing 45.8 Est GFR ( Amer) 50.3 Est GFR (Non-Af Amer) 43.4 BUN/Creatinine Ratio 18.5 Glucose 99 Calcium 8.6 Phosphorus 3.2 Albumin 2.7 L PG Care Time/CCT Total # of Minutes Spent Total Time Spent with Patient: Total time spent is greater than 50% in coordination of care (as documented) at patient's floor/unit and/or counseling patient: Coding Level of Care Code 06990 Subseq Hosp Care Lvl 3 Diagnoses Acute kidney injury N17.9 Crohns disease K50.919 Gastrointestinal tract location: unspecified location Digestive disease complication type: unspecified complication (1) Crohns disease Gastrointestinal tract location: unspecified location Digestive disease complication type: unspecified complication Qualified Code(s): K50.919 - Crohn's disease, unspecified, with unspecified complications
[2020-03-01] MEDS: FERROUS SULFATE 325 MG TAB PO SCH (11:17)
--- NOTE | 2020-03-01 13:10 | Discharge Summary ---
Date of Service March 01, 2020 Principal Diagnosis Pt is feeling much better overall. She feels her weakness is mostly resolved. The Imodium has helped her high ostomy output. She states she is having more formed stools. Tolerating PO. Pt denies fever, SOB, chest pain, abd pain, n/v, LE pain or swelling. Discharge Exam Constitutional WD/WN, vitals as above Eyes normal visual mcrae by confrontation and + anicteric sclerae Neck normal visual inspection and trachea midline Respiratory normal respiratory effort, lungs clear to auscultation Cardiovascular Rate/Rhythm: regular rate and regular rhythm Gastrointestinal (Abdomen) Inspection/Auscultation: abdomen not distended Percussion/Palpation: abdomen soft; abdomen nontender Musculoskeletal Head/Neck/Chest: normocephalic and head atraumatic Skin no rashes, warm and dry Neurologic awake; not confused Speech / Cognition: normal speech Psychiatric A+Ox3, euthymic affect Discharge Data Allergies Allergy/AdvReac Type Severity Reaction Status Date / Time No Known Allergies Allergy Verified 02/26/20 23:08 Consultations 02/27/20 00:29 ED Decision to Admit Stat 02/27/20 01:59 Consult Case Management - Discharge Planning Routine Consult Nephrology Routine 02/29/20 11:56 Consult Gastroenterology Routine Ordered Studies 02/26/20 23:49 CT abd pelvis wo con Stat Hospital Course (1) Acute kidney injury: Likely related to GI losses - consider renal doppler US to eval presence of artery stenosis or thrombus causing acute decrease in blood flow and injury - Cr continues to improve s/p fluid management - nephrology agrees with current management Repeat PRP on 03/04 (2) Leukocytosis: Uncertain etiology Possibly untx PNA--patchy infiltrate noted on CTAP Improving s/p abx Started on vanco/cefepime in the ED D/C vanco on 02/27 given improvement on WBC and blood cx neg on prelim x2 Lactic acid WNL x2 on admission D/C to finish course of abx with keflex 500mg BID (3) Diarrhea: Possibly related to recent abx use as pt states she had no similar issues until she was several days into the abx tx for her initial PNA Pt is high risk for prolonged diarrhea related to abx use due to Crohn's and colon resection x2 No hx of similar issues with missing Stelara dosing in the past Cdiff neg on last admission, will not repeat GI recs for Imodium TID PRN which has helped greatly Continue probiotics (4) Acute hyperkalemia: resolved s/p IVF, D50 followed by 10u regular insulin - calcium gluconate IV for cardioprotection - continued veltassa for K lowering (5) Weakness: Related to above (6) DOMINGO (obstructive sleep apnea): (7) Crohns disease: Does not appear to be related to a Crohn's flare, no blood (8) Diabetes mellitus, type 2: h/o metformin use, however has been on hold related to recent renal issues A1c 7.8 Advised to continue holding metformin until renal function is WNL Daily ACHS checks and take journal to PCP appt for further management BS were actually quite reasonable without metformin and no need for SSI during admission Total Time Total Time Spent Total Time Spent (In Minutes): >30 Total Time Includes: Examination of the Patient, Discharge Planning, Medication Reconciliation and Other Discharge Plan Discharge Items Patient Disposition: Home - Self-Care Reason For Visit: ACUTE RENAL FAILURE, DECREASED UOP Discharge Diagnosis: Dehydration and diarrhea Condition on Discharge: Good Activity: Resume your previous activity Non-emergency contact: 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 You will have your kidney function checked on Saturday. You can use Imodium 2-4g up to 3 times a day as needed for loose bowel movements. You should start taking a probiotic. The one I recommend for most patients is Jarrow EPS 5 billion. It is a mix of 8 different bacteria. You can find this product at [employer] in [employer] You should start with 1 a day. The goal is to have 1 solid bowel movement a day. If after 2 weeks you are still feeling constipated, you should increase to 2 probiotics daily. You can take up to 4 a day, but you want to take the least amount of any type of medication or supplement. You should take this away from your antibiotic. You should continue to hold your metformin due to your kidney function. Your blood sugars have been quite well controlled even without your metformin. You should check your blood sugars first thing in the morning and then before meals. You should record these numbers and take them with you to your appointment with your primary care. If you start having blood sugars over 180, you should call your primary care sooner. Pending Studies at Discharge: No Stand-Alone Forms: My [facility], Smoking Cessation Medications and DC Order Prescriptions: New loperamide 2 mg Capsule 4 mg PO TID PRN (Reason: loose stool) Qty: 30 RF: 0 cephalexin [Keflex] 500 mg capsule 500 mg PO BID 5 Days Qty: 10 RF: 0 Continued donepezil 10 mg tablet 10 mg PO QAM RF: 0 montelukast [Singulair] 10 mg tablet 10 mg PO QAM RF: 0 cholecalciferol (vitamin D3) [Vitamin D3] 1,000 unit capsule 6,000 units PO QAM RF: 0 ferrous sulfate [iron] 325 mg (65 mg iron) tablet 325 mg PO QDL RF: 0 atorvastatin [Lipitor] 40 mg tablet 40 mg PO QAM RF: 0 albuterol sulfate 2.5 mg /3 mL (0.083 %) solution for nebulization 2.5 mg inhalation Q4 PRN (Reason: Shortness Of Breath Or Wheezing) RF: 0 lidocaine [Lidoderm] 5 % adhesive patch,medicated 1 patch TOP DAILY PRN (Reason: Pain) RF: 0 fluoxetine [Prozac] 20 mg capsule 60 mg PO QAM RF: 0 memantine [Namenda] 10 mg tablet 10 mg PO BID RF: 0 venlafaxine [Effexor XR] 150 mg capsule,extended release 24hr 150 mg PO QAM RF: 0 pantoprazole [Protonix] 40 mg tablet,delayed release (DR/EC) 40 mg PO QAM RF: 0 cyanocobalamin (vitamin B-12) 1,000 mcg/mL solution 1,000 mcg IM MONTHLY RF: 0 Stelara 90 mg/mL syringe 90 mg SUBCUT .[id number] RF: 0 cyclobenzaprine 10 mg tablet 10 mg PO Q8H PRN (Reason: Muscle Spasm) RF: 0 nortriptyline [Pamelor] 25 mg capsule 25 mg PO BID RF: 0 Trelegy Ellipta 100-62.5-25 mcg blister with device 1 puffs INH QAM RF: 0 albuterol sulfate [Ventolin HFA] 90 mcg/actuation Hfa Aerosol Inhaler 1 - 2 puff INHALATION Q6H PRN (Reason: Shortness Of Breath) RF: 0 metoprolol succinate [Toprol XL] 25 mg tablet extended release 24 hr 25 mg PO QAM RF: 0 oxycodone [Roxicodone] 5 mg tablet 5 mg PO Q6H PRN (Reason: Pain) RF: 0 Discontinued amoxicillin-pot clavulanate [Augmentin] 875-125 mg tablet 1 tab PO BID Qty: 10 RF: 0 Discharge Orders: Discharge Order (Routine); Ordered 03/01/20 Ordered By: Jovita Villegas/Other Patient Handouts: Diabetes and Heart Disease, Diabetes Mcfp Complications, Diabetes Resources, Diabetes Healthy Meals, Diabetes Exercise Benefits, Diabetes Manage A1C Test, Loperamide tablets or capsules, Cephalexin tablets or capsules Admission Data Admit Date/Time: 02/27/20 01:14 Attending Provider: Jovita Finnegan Admit Provider: Juju Christianson Primary Care Provider: Jose Raul Allen Other Providers: Jay Billings ; Josesito Salgado ; Percy Lott Other Interventions: Discharge Summary Assessment (RN) Last Done: 03/01/20 13:19 DC Date/Time DO NOT enter until pt leaves facility: 03/01/20 14:49 Coding Level of Care Code D/C Day Management >30 mins Diagnoses Acute kidney injury N17.9 Leukocytosis D72.829 Diarrhea R19.7 Acute hyperkalemia E87.5 Weakness R53.1 DOMINGO (obstructive sleep apnea) G47.33 Crohns disease K50.919 Digestive disease complication type: unspecified complication Gastrointestinal tract location: unspecified location Diabetes mellitus, type 2 E11.9 Diabetes mellitus complication status: without complication 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
== END 2020-03-01 14:49 | disposition home or self-care (01) ==
LOC: ED 21:17 → INTOOBSV 02-27 01:14 → 2S 02-27 01:14 → SUATTDRO 02-27 01:14 → 2S 02-27 01:39